=== PATIENT | female | born 1985 | race Caucasian/White ===

== ENCOUNTER 2017-11-18 18:12 | Emergency (ER) | payer BC, SELFPAY ==
[2017-11-18 18:13] VITALS: BP 166/103; PULSE 78; RESP 16; TEMP 36.2; O2SAT 98; BMI 39.9
[2017-11-18 18:35] VITALS: BP 145/89; PULSE 73; RESP 16; O2SAT 99
--- NOTE | 2017-11-18 18:36 | EKG12_ITS ---
Test Reason : CP Blood Pressure : / mmHG Vent. Rate : 067 BPM Atrial Rate : 067 BPM P-R Int : 148 ms QRS Dur : 096 ms QT Int : 378 ms P-R-T Axes : 002 016 005 degrees QTc Int : 399 ms Normal sinus rhythm with sinus arrhythmia Normal ECG Confirmed by HERMINIA ROGER, TALIB ([id number]), fashion editor MARA ZAMBRANO ([id number]) on 11/24/2017 3:34:58 PM Referred By: ORALIA Confirmed By:TALIB HOPE MD
[2017-11-18 18:38] VITALS: O2SAT 100
--- NOTE | 2017-11-18 18:41 | ED.DCSUM_ITS ---
- ER Visit Summary Date of Service: 11/18/17 Chief Complaint: Chest pain History of Present Illness: The patient is a 32 F past medical history of reflux and migraine headaches. No history of cardiac disease. No family history of cardiac disease. No family history of DVT or PEs. She has had no recent tr denise, surgery, immobilization or hospitalization. Denies any calf pain or swelling. No hemoptysis. Patient complaining of chest pain since around 1115 today at work. Currently been ongoing for last 7 hours. At times a stabbing in her times to pressure. Mild dyspnea. No fever. No cough. No prior history. She is on control pills. Physical Examination: Young female vital signs are stable and afebrile. Her BMI is 40. She is in no distress. Her pulse ox is 90% on room air no signs of hypoxia. H EENT exam unremarkable. Neck nontender no lymphadenopathy. Lungs clear to auscultation bilaterally. Heart regular rate and rhythm rate about 70 no murmur. Chest wall is diffusely tender consistent with muscular skeletal pain. There is no ecchymosis or bruising. No subcu air crepitus. Abdomen is obese but soft nontender nondistended normal bowel sounds no peritoneal signs. She is moving all 4 extremities. The neurovascular intact with normal range of motion. Calves are nontender without edema nor cords. Radial pulses are equal and symmetrical. Neurologically she is awake alert with no equal motor deficits. Test Results: EKG normal sinus rhythm rate of 67 no signs. Chest x-ray portable one view no acute abnormality. Normal cardiac silhouette next item. CBC normal. White count of 7. Hemoglobin 12. Electrolytes unremarkable. Potassium 3.3. Normal creatinine and gap. Troponin normal. D-dimer normal. Serum test negative. Emergency Department Course and Treatment: Patient with chest pain by exam appears to be reproducible and. She will undergo cardiac workup and d-dimer. My suspicion of this being cardiac or PE are low. She was treated with IV Toradol for pain. Repeat exam she is doing well at 1957 will be discharged home. Treatment Plan: Motrin for pain. Ice to chest wall. Disposition: Discharge Impression: Acute chest pain consistent with chest wall pain This note was generated with [employer] dictation software. It may contain incorrect words, spelling, and punctuation that were not noted in review of the chart prior to signing ED Disposition - Plan for ED Patient: Chief Complaint: Chest Pain Referrals: Raymond Arteaga III, MD [Primary Care Provider] -
--- NOTE | 2017-11-18 18:45 | RAD_ITS ---
STUDY: X-RAY CHEST REASON FOR EXAM: Female, 32 years old. Chest pain TECHNIQUE: Single frontal view COMPARISON: November 04, 2013 FINDINGS: The lungs are not fully expanded. There is mild right basilar interstitial prominence. Normal size heart. Normal mediastinum and debo. Normal visualized pulmonary arteries. Normal visualized aortic arch and descending thoracic aorta. Normal visualized thoracic spine. Normal visualized ribs, clavicles, and shoulders. There is no demonstrated abnormality of the visualized soft tissue structures of the upper abdomen. RAD/Chest 1 View (Portable) IMPRESSION: Mild right basilar interstitial prominence. Electronically Signed: King Pan DO at 19:08 EDT Tel [phone], Service support ,
[2017-11-18 19:03] LABS: Absolute Lymphocyte Count 2.47 X10^3/ul (0.83-4.51); Absolute Neutrophil Count 4.2 X10^3/uL (2.0-7.7); Basophil# 0.03 X10^3/uL; Basophil% 0.4 % (0-1); Eosinophil# 0.17 X10^3/uL; Eosinophils% 2.3 % (0-5); Hematocrit 37.5 % (37-47); Hemoglobin 12.4 g/dl (12.0-15.0); Lymphocyte # 2.47 X10^3/ul (4.0); Mean Corp Hgb Conc 33.1 g/gl (32-36); Mean Corpuscular Hgb 29.7 pg (27.0-32.0); Mean Corpuscular Volume 89.7 fL (81-99); Mean Platelet Vol. 9.7 fl (6.2-12.0); Monocyte# 0.38 X10^3/uL; Monocyte% 5.2 % (0-10); POSITIVE COUNT NO; POSITIVE DIFFERENTIAL NO; POSITIVE MORPHOLOGY NO; Platelet Count 266 K/mm3 (150-450); RBC Distribution Width CV 13.1 % (11.6-14.6); RBC Distribution Width SD 42.9 fl (35.1-43.9); Red Blood Count 4.18 M/mm3 (4.2-5.4); White Blood Count 7.3 K/mm3 (4.4-11.0)
[2017-11-18 19:16] LABS: Anion Gap 9 (5-15); BUN 11 mg/dL (7-18); BUN/Creat Ratio 12.7 RATIO (10-20); Chloride 106 mmol/L (98-107); Creatinine, Serum 0.87 mg/dL (0.55-1.02); EST Glomerular Filtration Rate 80 mL/min (>60); Est Glom Filt Rate - Afr Amer 97 mL/min (>60); Estimated Creatinine Clearance 82.76 ml/min; Glucose 117 mg/dL (74-106); Potassium 3.3 mmol/L (3.5-5.1); Sodium Level 140 mmol/L (136-145)
[2017-11-18 19:20] LABS: Pregnancy, Serum, hCG Quali. NEGATIVE Negative (0-9 Nonpreg)
[2017-11-18 19:24] LABS: D-Dimer Quantitative (DVT/PE) 0.44 FEU/ug/m (0.27-0.49)
[2017-11-18 19:29] VITALS: BP 159/113; PULSE 81; RESP 15; O2SAT 97
[2017-11-18] MEDS: Ketorolac 30 MG/ML Syringe IV (19:35)
[2017-11-18 19:57] VITALS: BP 159/87; PULSE 64; RESP 16; O2SAT 99
--- NOTE | 2017-11-18 19:58 | ED.DEP ---
ED Disposition - Plan for ED Patient: Disposition: Home or Assisted Living Chief Complaint: Chest Pain Instructions: ED Chest Pain Costochondritis Referrals: Raymond Arteaga III, MD [Primary Care Provider] - 1 Week if not improving Additional Instructions: Ice to chest wall. Motrin or Advil for pain. This is caused by chest wall pain. Your labs were unremarkable. There is no signs of this being your heart or a blood clot.
== END 2017-11-18 20:28 | disposition home or self-care (01) ==
PROVIDERS: Emergency Provider Emergency Medicine; Family Provider Family Medicine; PCP Family Medicine
DX: R07.89 Other chest pain (principal); R06.00 Dyspnea, unspecified; K21.9 Gastro-esophageal reflux disease without esophagitis; G43.909 Migraine, unspecified, not intractable, without status migrainosus; Z79.3 Long term (current) use of hormonal contraceptives; Z79.899 Other long term (current) drug therapy
CPT/HCPCS: 71045; 80048; 84484; 84703; 85025; 85379; 93005; 96374; 99284; A4216

== ENCOUNTER 2019-02-08 19:26 | Emergency (ER) | payer OTHER, SELFPAY ==
[2019-02-08 19:26] VITALS: BP 145/87; PULSE 94; RESP 18; TEMP 36.9; O2SAT 99; BMI 41.5
[2019-02-08] MEDS: Naproxen 500 MG Tablet PO (19:40)
--- NOTE | 2019-02-08 19:43 | ED.DCSUM_ITS ---
- ER Visit Summary Date of Service: 02/08/19 Chief Complaint: Back pain History of Present Illness: The patient is a 33 F who presents with back pain. It occurred 3 and half hours ago at work. 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 Is worse with movement. Nothing makes it better. She took nothing for this at home. No numbness or tingling or radiation down the legs. No bowel or bladder incontinence. No dysuria. No history of any back issues in the past. Physical Examination: Vital signs reviewed. HEENT exam unremarkable. Heart is regular rate and rhythm without murmurs. Lungs are clear to auscultation. Abdomen is soft and nontender. Back exam is tender in the right lumbar area. Extremities reveal no edema. Skin exam normal. Neurologic exam normal. Test Results: None performed Emergency Department Course and Treatment: This is likely a lumbar strain secondary to her lifting the patient. I do not feel any x-rays are needed as she has no midline tenderness. Patient will be treated with naproxen here. I will give her Flexeril for home. She will continue naproxen [id number]. Worker's Compensation forms will be completed. Treatment Plan: [] Disposition: Discharge Impression: Lumbar strain This note was generated with [employer] dictation software. It may contain incorrect words, spelling, and punctuation that were not noted in review of the chart prior to signing ED Disposition - Plan for ED Patient: Disposition: Home or Assisted Living Instructions: Back Sprain/Strain Prescriptions: cycloBENZAPRine HCl [Flexeril] 10 mg PO TID PRN #20 tab PRN Reason: Muscle Spasm Prescription Printed Referrals: Raymond Arteaga III, MD [Primary Care Provider] -
== END 2019-02-08 19:56 | disposition home or self-care (01) ==
PROVIDERS: Emergency Provider Emergency Medicine; Family Provider Family Medicine; PCP Family Medicine
DX: S39.012A Strain of muscle, fascia and tendon of lower back, initial encounter (principal); X50.0XXA Overexertion from strenuous movement or load, initial encounter; Y93.89 Activity, other specified; Y92.89 Other specified places as the place of occurrence of the external cause; Y99.8 Other external cause status
CPT/HCPCS: 99283

== ENCOUNTER → 2019-04-07 09:03 | Outpatient (REF) | payer OTHER, SELFPAY ==
[2019-04-05 10:07] VITALS: BMI 40.1
== END ==
LOC: HPRAD 09:03
PROVIDERS: PCP Family Medicine; Referring Provider Chiropractor; Visit Provider Chiropractor
DX: M99.01 Segmental and somatic dysfunction of cervical region (principal); R51 Headache
CPT/HCPCS: 72040

== ENCOUNTER 2019-04-15 16:53 | Emergency (ER) | payer OTHER, SELFPAY ==
[2019-04-05 10:07] VITALS: BMI 40.1
[2019-04-15 16:54] VITALS: BP 140/115; PULSE 95; RESP 18; TEMP 36.4; O2SAT 97; BMI 39.9
--- NOTE | 2019-04-15 17:19 | CT_ITS ---
STUDY: CT BRAIN WITHOUT CONTRAST REASON FOR EXAM: Female, 33 years old. Headache. Left-sided numbness and weakness. Photosensitivity. RADIATION DOSAGE (If Supplied By Facility): CTDIvol = ( 60.81 ) mGy, DLP = ( 953.05 ) mGycm TECHNIQUE: Transaxial CT imaging of the brain was performed without administration of intravenous contrast material. Individualized dose optimization techniques were used for this CT. COMPARISON: No relevant priors. FINDINGS: Normal soft tissue structures. Normal calvarium. Normal size ventricles and extra-axial spaces for the patient''s age. Normal white matter tracts of the cerebral hemispheres. Normal basal ganglia and thalami. Normal brainstem. Normal cerebellum. There is no intracranial hemorrhage. There are no findings of an acute ischemic infarction. Normal visualized paranasal sinuses. CT/Brain/Head without Contrast IMPRESSION: Normal unenhanced CT scan of the brain. If there is continued concern for acute stroke, MRI is recommended. Electronically Signed: Juice Seth DO at 18:30 EST Tel [phone], Service support ,
--- NOTE | 2019-04-15 17:20 | ED.DCSUM_ITS ---
History of Present Illness Chief Complaint: Headache Informant: Patient Onset: Weeks - 2 Context: Sudden - Relatively, like prior headaches Timing: Continuous - And unrelenting Quality: Similar Prior Headaches, Dull, Throbbing Location: Bifrontal and occipital Current Severity: Severe Maximum Severity: Severe Worsened by: Light, vomiting Relieved by: Nothing Associated Symptoms: Nausea, Vomiting, Numbness - Left arm and left leg, Blurred Vision, Photophobia. Negative for: Fever, Sore Throat, Visual Loss Injury: - - No injury/fall or recent illness Narrative: Patient states she has had increased frequency of migraines for the past 3 months. When she gets the migraines, she has been experiencing numbness/tingling throughout her left arm and left leg. That is currently there. She also has had some visual disturbances that look like swirls in her vision, but those resolved and today it is just blurry diffusely, no diplopia. No loss of consciousness. She states when the headache start there relatively sudden but she denies feeling any thunderclap's. She has a brother who had some type of brain cancer, no known history of cerebral aneurysms in the family. The left-sided neurologic symptoms come and go along with the headaches, but not consistently. She has never had the neurologic symptoms without the migraines/headaches. - Past Medical History (1) GERD (gastroesophageal reflux disease) Status: Chronic (2) Cervicogenic headache Status: Chronic (3) Segmental and somatic dysfunction of cervical region Status: Chronic (4) Segmental and somatic dysfunction of lumbar region Status: Chronic (5) Segmental and somatic dysfunction of pelvic region Status: Chronic (6) Segmental and somatic dysfunction of thoracic region Status: Chronic Past Medical History - Allergies and Home Meds Allergies/Adverse Reactions: Allergies doxycycline Allergy (Unknown, Verified 04/15/19 16:53) Unknown cefaclor [From Ceclor] Allergy (Verified 04/15/19 16:53) Hives dicyclomine Allergy (Verified 04/15/19 16:53) Hives Penicillins Allergy (Verified 04/15/19 16:53) Hives Primary Care Physician: Raymond Arteaga III, MD [Primary Care Provider] - Lives: Alone Smoking Status: Former smoker Review of Systems General: Reports: Malaise. Denies: Chills, Fever Eyes: Reports: Blurred Vision - bilaterally. Denies: Diplopia ENT: Denies: Bilateral ear pain, Rhinorrhea, Sore throat Cardiovascular: Denies: Chest pain, Palpitations Respiratory: Denies: Dyspnea, Cough, Dyspnea on exertion Gastrointestinal: Reports: Nausea, Vomiting. Denies: Abdominal pain, Diarrhea Genitourinary: Denies: Dysuria, Hematuria, Frequency Musculoskeletal: Reports: Neck pain, Back pain - Chronic, unchanged, mild. Denies: Swelling, Extremity Pain Skin: Denies: Rash, Wounds Neurological: Reports: Headache, Weakness, Numbness Physical Exam Vital Signs/Narrative: Vital Signs Temp Pulse Resp BP Pulse Ox 04/15/19 16:54 97.5 F L 95 18 140/115 H 97 Inital Vital Signs reviewed: Yes General: Well nourished, Well developed, - - nad. Conversive Head: NC, AT Eyes: Perrl, EOMI ENT: Moist mucous membranes, No rhinorrhea, TM's clear. Negative for: Sinus tenderness Neck: Supple, No Lymphadenopathy, No JVD, No Meningismus Cardiovascular: Regular rate, Regular rhythm, No murmurs Respiratory: No distress, CTA bilaterally, Chest nontender Abdomen: Soft, Nontender, Nondistended, Normal bowel sounds Back: Nontender, Normal Inspection Extremities: Nontender, No edema Skin: Normal color, No rash, No Trauma Neuro: Alert, Oriented x3, Cranial nerves II-XII grossly intact, Normal DTR, Normal Gait, Parasthesia - Left upper and left lower extremities. Sensation grossly intact., Weakness - 4+/5 strength left upper and left lower extremities, throughout compared with contralateral side Psychological: Normal affect, Normal Mood - NIH Stroke Scale 1a Level of Consciousness: 0 1b LOC Questions (Score 2 if aphasic/stupor): 0 1c LOC Commands (Only score 1st attempt): 0 2 Best Gaze (If aphasic, use reflexive mvmts.): 0 3 Visual: 0 4 Facial Palsy: 0 5 Motor Arm Right (UN = amputation/fusion): 0 5 Motor Arm Left: 1 6 Motor Leg Right: 0 6 Motor Leg Left: 1 7 Limb ataxia (Only + if out of proportion): 0 8 Sensory (Aphasia/stupor=0 or 1, coma=2): 1 9 Best Language: 0 10 Dysarthria (mute, coma=2, intubated=UN): 0 11 Extinction and Inattention (only scored if +): 0 Total Score: 3 Diagnostic/Tx/Re-eval Clinical Impression(s) from Imaging Studies Brain CT 04/15/19 17:19 IMPRESSION: Normal unenhanced CT scan of the brain. If there is continued concern for acute stroke, MRI is recommended. Electronically Signed: Juice SethDO at 18:30 EST Tel [phone], Service support , - Medical Decision Making Patient was given Toradol, Reglan, Benadryl as we obtained a CT given her unilateral neurologic symptoms. CT is negative. This is all consistent with migraine causing her neurologic symptoms, historically. She is improved, she would prefer to get another dose of something and then be discharged home. Dihydroergotamine ordered and discharge papers given. Given reasons to return. She is on no prophylactic medication for her migraines, she has been referred to neurology but has not seen them yet. ED Disposition - Plan for ED Patient: Disposition: Home or Assisted Living Diagnosis: Migraine headache Instructions: ED, Migraine (Classical) Referrals: Raymond Arteaga III, MD [Primary Care Provider] - 3-5 Days if not improving (And/o r with neurologist as scheduled)
[2019-04-15] MEDS: DiphenhydrAMINE 50 MG/ML Syringe 25 MG IV (18:03)
[2019-04-15] MEDS: 0.9% Normal Saline 1,000 ML 999 ML IV (18:03)
[2019-04-15] MEDS: proCHLORPERazine 10 MG/2 ML Vial IV (18:04)
[2019-04-15] MEDS: Ketorolac 30 MG/ML Syringe IV (18:04)
[2019-04-15 18:57] VITALS: BP 133/78; PULSE 70; RESP 16; O2SAT 98
[2019-04-15] MEDS: Dihydroergotamine 1 MG/ML Ampul IV (19:18)
[2019-04-15 20:11] VITALS: BP 131/97; PULSE 74; RESP 15; O2SAT 98
== END 2019-04-15 20:12 | disposition home or self-care (01) ==
PROVIDERS: Emergency Provider Emergency Medicine; PCP Family Medicine
DX: G43.909 Migraine, unspecified, not intractable, without status migrainosus (principal); K21.9 Gastro-esophageal reflux disease without esophagitis; Z87.891 Personal history of nicotine dependence; Z79.899 Other long term (current) drug therapy
CPT/HCPCS: 70450; 96361; 96374; 96375; 99284; J7030; A4216; J1110

== ENCOUNTER → 2019-12-03 | Outpatient (CLI) | payer OTHER, SELFPAY ==
[2019-12-01 18:11] VITALS: BMI 43.2
[2019-12-03 07:35] LABS: Absolute Lymphocyte Count 2.09 X10^3/uL (0.83-4.51); Absolute Neutrophil Count 4.7 X10^3/uL (2.0-7.7); Basophil# 0.05 X10^3/uL; Basophil% 0.7 % (0-1); Eosinophil# 0.17 X10^3/uL; Eosinophils% 2.3 % (0-5); Hematocrit 38.5 % (37-47); Hemoglobin 12.5 g/dL (12.0-15.0); Lymphocyte # 2.09 X10^3/ul (4.0); Lymphocyte % 27.9 % (19-41); Mean Corp Hgb Conc 32.5 g/dL (32-36); Mean Corpuscular Hgb 29.6 pg (27.0-32.0); Mean Corpuscular Volume 91.2 fL (81-99); Mean Platelet Vol. 9.6 fl (6.2-12.0); Monocyte# 0.49 X10^3/uL; Monocyte% 6.6 % (0-10); NRBC Flagged by Analyzer 0 % (0-5); Neutrophil # 4.67 X10^3/uL (2.7-7.7); Neutrophil % 62.4 % (47-70); Platelet Count 316 K/mm3 (150-450); RBC Distribution Width CV 13.5 % (11.6-14.6); RBC Distribution Width SD 45.4 fl (35.1-43.9); Red Blood Count 4.22 M/mm3 (4.2-5.4); White Blood Count 7.5 K/mm3 (4.4-11.0)
[2019-12-03 08:18] LABS: ALB/GLOB Ratio 0.8 RATIO (0.9-2.4); AST(SGOT) 16 U/L (15-37); Alanine Aminotransfer ALT/SGPT 25 U/L (13-56); Albumin, Serum 3.4 g/dL (3.2-5.0); Alkaline Phosphatase 51 U/L (45-117); Anion Gap 6 (5-15); BUN 12 mg/dL (7-18); BUN/Creat Ratio 13.3 RATIO (10-20); Calcium,Total 8.6 mg/dL (8.5-10.1); Chloride 107 mmol/L (98-107); EST Glomerular Filtration Rate 75 mL/min (>60); Est Glom Filt Rate - Afr Amer 91 mL/min (>60); Glucose 90 mg/dL (74-106); Protein, Total 7.4 g/dL (6.4-8.2); Sodium Level 139 mmol/L (136-145); T4 Free Direct 1.06 ng/dL (0.76-1.46); Thyroid Stim Hormone (TSH) 2.31 uIU/mL (0.358-3.74)
== END | disposition home or self-care (01) ==
PROVIDERS: PCP Internal Medicine; Referring Provider Internal Medicine; Visit Provider Internal Medicine
DX: K21.9 Gastro-esophageal reflux disease without esophagitis (principal); K58.9 Irritable bowel syndrome, unspecified
CPT/HCPCS: 36415; 80053; 84439; 84443; 85025

== ENCOUNTER → 2020-02-15 | Outpatient (CLI) | payer OTHER, SELFPAY ==
[2020-02-15 13:38] VITALS: BMI 43.7
[2020-02-21 12:54] LABS: HPV APTIMA, High Risk Negative (Negative)
== END | disposition home or self-care (01) ==
PROVIDERS: PCP Internal Medicine; Visit Provider Nurse Practitioner Women's Health
DX: Z12.4 Encounter for screening for malignant neoplasm of cervix (principal)
CPT/HCPCS: 87624; 88175; G0145

== ENCOUNTER → 2020-03-08 10:32 | Outpatient (CLI) | payer OTHER, SELFPAY ==
[2020-02-15 13:38] VITALS: BMI 43.7
--- NOTE | 2020-03-08 10:34 | BI_ITS ---
MAMMOGRAPHY - BILATERAL SCREENING REASON FOR EXAM: Female, 34 years old. Routine annual screening examination. PERTINENT HISTORY: Grandmother with breast cancer. TECHNIQUE: Digital bilateral breast silvia (3D mammographic acquisition) in the CC and MLO projections. 2-D mediolateral oblique (MLO) and craniocaudad (CC) views of both breasts were obtained. CAD: Full Field Digital Mammography with Computer Added Detection was performed. COMPARISON: Comparison made with prior outside examination dated 12/30/2017. FINDINGS: Breast Composition: The breasts are heterogeneously dense, which may obscure small masses. There are no dominant masses or suspicious calcifications. A tissue clip marker is seen in the upper slightly lateral aspect of the left breast. Stable benign appearing axillary lymph nodes. No other significant abnormalities are identified. There has been no significant change since the prior study. BI/SCRN MAMM (CAD)W/SILVIA BILAT IMPRESSION: Stable bilateral screening mammogram. Yearly follow-up mammogram recommended. (A) ASSESSMENT CATEGORY: BIRADS Category 2: Benign. A letter regarding these results will be sent to the patient by the facility within 30 days. Approximately 10% of breast cancers are not detected by mammography. A normal mammogram should not delay biopsy of a clinically suspicious abnormality. [id number] Electronically Signed: Paramjit Kumari MD at 12:10 EST , Service support ,
== END ==
PROVIDERS: PCP Internal Medicine; Referring Provider Nurse Practitioner Women's Health; Visit Provider Nurse Practitioner Women's Health
DX: Z12.31 Encounter for screening mammogram for malignant neoplasm of breast (principal)
CPT/HCPCS: 77063; 77067

== ENCOUNTER → 2020-04-10 06:32 | Outpatient (CLI) | payer OTHER, SELFPAY ==
[2020-03-29 09:18] VITALS: BMI 43.2
[2020-04-04 11:13] VITALS: BMI 42.1
--- NOTE | 2020-04-10 06:33 | MRI_ITS ---
STUDY: MRA OF THE HEAD WITHOUT CONTRAST REASON FOR EXAM: Female, 34 years old. family hx of cerebral aneurysm, migraine, ringing right ear TECHNIQUE: 3-D exrb-ec-pjcoki (TOF) imaging was performed with MIPs. The study was performed unenhanced. COMPARISON: None. FINDINGS: Normal bilateral petrous carotid arteries. Normal right cavernous carotid artery with a normal supraclinoid bifurcation. Normal left cavernous carotid artery with a normal supraclinoid bifurcation. Normal right A1 segments of the anterior cerebral artery. Normal left A1 segments of the anterior cerebral artery. Normal intact anterior communicating artery (ACOM). Normal bilateral A2 segments of the anterior cerebral arteries. Normal right M1 and M2 segments of the middle cerebral arteries, with a normal M1 bifurcation. Normal left M1 and M2 segments of the middle cerebral arteries, with a normal M1 bifurcation. Normal right posterior communicating artery (PCOM). Normal left posterior communicating artery (PCOM). Normal bilateral vertebral arteries. Normal basilar artery with a normal basilar bifurcation. The visualized bilateral superior cerebellar (SCA) arteries are normal. Normal bilateral P1, P2 and visualized P3 segments of the posterior cerebral arteries. There is no demonstrated aneurysm of the [place]. There is no major vessel occlusion or hemodynamically significant stenosis. There is no demonstrated abnormality of the visualized brain. MRI/MRA Head ONLY without Contrast IMPRESSION: Normal MRA of the head Electronically Signed: Terell Llanos MD at 8:30 EST Tel , Service support ,
--- NOTE | 2020-04-10 06:33 | MRI_ITS ---
STUDY: MRI BRAIN WITH AND WITHOUT CONTRAST (ATTENTION INTERNAL AUDITORY CANALS - I.A.C.''s) REASON FOR EXAM: Female, 34 years old. migraine, family hx cerebral aneurysm, ringing in right ear TECHNIQUE: Standardized multiplanar fat and water weighted pulse sequences were obtained. 23ml IV Dotarem was administered for the contrast portion of the examination. COMPARISON: CT 04/15/2019 FINDINGS: Normal bilateral temporal bones. Normal bilateral internal auditory canals. There is no demonstrated intracanalicular or cisternal vestibular schwannoma (acoustic neuroma). There is no enhancement of the bilateral VIIth or VIIIth cranial nerves. Normal bilateral cochlea, vestibules and semicircular canals. Normal size of the ventricles and extra-axial spaces for the patient''s age. Normal white matter tracts of the supratentorial brain. There is no evidence for recent intracranial ischemia or other cause of cytotoxic edema on diffusion weighted imaging (DWI). Normal bilateral basal ganglia. Normal thalami. Normal flow voids within the major intracranial circulation suggesting patency by spin echo criteria. Normal venous enhancement. There is no enhancing intra-axial or extra-axial abnormality. There is no extra-axial fluid accumulation. Normal sella turcica, pituitary gland, infundibular stalk, optic chiasm and hypothalamus. Normal tectal plate and pineal gland. Normal midbrain, yeni and medulla. Normal cerebellum. Normal basal cisterns. No demonstrated orbital abnormality, within the constraints of a routine brain study. Normal visualized paranasal sinuses. Normal calvarium and skull base. Normal visualized soft tissue structures. Normal visualized upper cervical spine. MRI/Brain W/WO Contrast IMPRESSION: Normal unenhanced and enhanced MRI of the bilateral internal auditory canals (I.A.C''s). Electronically Signed: Terell Llanos MD at 8:35 EST Tel , Service support ,
== END ==
PROVIDERS: PCP Internal Medicine; Referring Provider Nurse Practitioner Family; Visit Provider Nurse Practitioner Family
DX: G43.109 Migraine with aura, not intractable, without status migrainosus (principal); Z82.49 Family history of ischemic heart disease and other diseases of the circulatory system
CPT/HCPCS: 70544; 70553; A9575

== ENCOUNTER → 2020-05-08 09:37 | Outpatient (CLI) | payer OTHER, SELFPAY ==
[2020-05-08 09:27] VITALS: BMI 42.1
[2020-05-08 12:23] LABS: Vitamin D,25 Hydroxy 16.6 ng/mL
== END ==
PROVIDERS: PCP Internal Medicine; Referring Provider Podiatrist; Visit Provider Podiatrist
DX: E55.9 Vitamin D deficiency, unspecified (principal); S92.403A Displaced unspecified fracture of unspecified great toe, initial encounter for closed fracture
CPT/HCPCS: 36415; 82306

== ENCOUNTER → 2020-05-18 06:36 | Outpatient (CLI) | payer OTHER, SELFPAY ==
[2020-05-08 09:27] VITALS: BMI 42.1
--- NOTE | 2020-05-18 06:38 | MRI_ITS ---
HISTORY: Chronic neck pain, numbness and tingling INTO R HAND/FINGERS TECHNIQUE: Routine MRI of the cervical spine was performed without IV contrast. COMPARISON: Cervical spine radiographs 04/07/2019 FINDINGS: Number of images including paperwork: [phone] ALIGNMENT: Straightening of the normal cervical lordosis. No subluxation. VERTEBRAL BODIES: Unremarkable. INTERVERTEBRAL DISCS: Unremarkable. SPINAL CANAL AND FORAMINA: No critical canal stenosis. SPINAL CORD: Unremarkable. MRI/Spine Cervical (Routine) IMPRESSION: No acute findings. at 1015 Reported and signed by: Zeny Gifford MD Electronically Signed: Zeny Gifford MD at 10:15 EDT Tel , Service support ,
== END ==
PROVIDERS: PCP Internal Medicine; Referring Provider Nurse Practitioner Family; Visit Provider Nurse Practitioner Family
DX: M54.2 Cervicalgia (principal)
CPT/HCPCS: 72141

== ENCOUNTER → 2020-07-05 15:40 | Outpatient (CLI) | payer OTHER, SELFPAY ==
[2020-07-05 15:25] VITALS: BMI 44.9
[2020-07-05 18:29] LABS: T4 Free Direct 0.84 ng/dL (0.76-1.46); Thyroid Stim Hormone (TSH) 1.93 uIU/mL (0.358-3.74)
== END ==
PROVIDERS: PCP Internal Medicine; Referring Provider Internal Medicine; Visit Provider Internal Medicine
DX: Z13.29 Encounter for screening for other suspected endocrine disorder (principal)
CPT/HCPCS: 36415; 84439; 84443

== ENCOUNTER 2020-12-06 09:58 | Day surgery (SDC) | payer OTHER, SELFPAY ==
[2020-12-06] VITALS (7 sets, daily range): BP systolic 117–126; BP diastolic 71–79; PULSE 51–68; RESP 16; TEMP 36–37.4; O2SAT 97–100; BMI 43.2
--- NOTE | 2020-12-06 10:12 | PCM.HP.BLA ---
History and Physical Date of Admission: 12/06/20 Date of Service: 11/30/20 Intake Intake Visit Reasons: POSSIBLE FISSURE, CSCOPE/EGD Chief Complaint: left ear pain Allergies Penicillins Allergy (Severe, Verified 11/30/20 09:32) hives cefaclor [From [facility], 1928–1983] Allergy (Intermediate, Verified 11/30/20 09:32) Rash doxycycline Allergy (Mild, Verified 11/30/20 09:32) unknown Medications cetirizine 10 mg capsule 10 mg PO DAILY 02/15/20 [History Confirmed 11/30/20] hydroxyzine HCl 25 mg tablet 25 mg PO BID PRN tab 02/15/20 [History Confirmed 11/30/20] Diltiazem 2% / Lidocaine 5% ointment (compound) #30 g 03/15/20 [Rx Confirmed 11/30/20] norethindrone (contraceptive) 0.35 mg tablet 0.35 mg PO QDAY #84 tab 03/30/20 [Rx Confirmed 11/30/20] cholecalciferol (vitamin D3) 125 mcg (5,000 unit) capsule 125 mcg PO DAILY 07/05/20 [History Confirmed 11/30/20] propranolol 40 mg tablet 40 mg PO BID #60 tab 07/31/20 [Rx Confirmed 11/30/20] eletriptan 20 mg tablet See Rx Instructions .ROUTE .COMPLEX #9 tab 08/01/20 [Rx Confirmed 11/30/20] tizanidine 4 mg tablet 4 - 8 mg PO TID PRN #180 tab 09/18/20 [Rx Confirmed 11/30/20] ubrogepant 100 mg tablet 100 mg PO ONCE PRN #10 tab 10/06/20 [Rx Confirmed 11/30/20] erenumab-aooe 140 mg/mL subcutaneous auto-injector 140 mg SUBCUT QMONTH #1 ml 10/09/20 [Rx Confirmed 11/30/20] dicyclomine 20 mg tablet 20 mg PO TID PRN #60 tab 11/28/20 [Rx Confirmed 11/30/20] naproxen 500 mg tablet 500 mg PO BID PRN #60 tab 11/28/20 [Rx Confirmed 11/30/20] omeprazole 20 mg capsule,delayed release 20 mg PO DAILY #90 cap 11/28/20 [Rx Confirmed 11/30/20] ondansetron HCl 4 mg tablet 4 mg PO Q8H PRN #90 tab 11/28/20 [Rx Confirmed 11/30/20] sucralfate 1 gram tablet 1 g PO QACHS #56 tab 11/30/20 [Rx Confirmed 11/30/20] PFSH Medical History Acid reflux Carpal tunnel syndrome Chronic diarrhea Chronic headaches Chronic neck and back pain Environmental allergies GI bleed H/O emotional problems H/O hemorrhoids History of eating disorder History of gallstones History of UTI Hypertension IBS (irritable bowel syndrome) Neuropathy Nonscarring hair loss Screening for thyroid disorder Severe headache Tinnitus Tinnitus, right vision problem with headache Surgical History H/O dilation and curettage History of cholecystectomy History of tonsillectomy history of upper and lower scope Family History Mother Hypertension Arthritis Anemia Father Diabetes Anesthesia complication Brother Brain cancer Anxiety Sister Asthma Grandmother CVA (cerebral vascular accident) Daughter Anxiety Grandfather COPD (chronic obstructive pulmonary disease) CVA (cerebral vascular accident) Other Seizures Social History household members: spouse and children number of children: 3 current occupational status: employed current occupation: [employer] history of recent travel: No sexually active: Yes Smoking Status: Former smoker alcohol intake: never substance use type: does not use what type of physical activity do you participate in: running frequency: 3-4 times per week seatbelt use: always do you feel safe at home: Yes additional social history: - Donald Female Reproductive History Menstrual Ab spontaneous: 1 HPI HPI HPI: DOMINIK JOSEPH, is a 35 F who presents to the office today for EGD and colonoscopy due to red blood per rectum as well as epigastric pain. Patient states she has had blood clots per rectum ongoing has diagnosis of anal fissure. Patient denies any further pain with bowel movements states she normally has loose stools multiple times a day. Patient does have Bentyl for IBS which she has been taking more regularly currently states that may help a little bit. Patient states omeprazole 20 mg p.o. daily for about 2 years old her burning up her esophagus with reflux. However this week patient has had increased epigastric crampiness patient denies any change with eating states it is fairly constant and she does have nausea. Patient has been taking Zofran to help with the nausea. Patient had previous colonoscopy in 2018 along with an EGD and only had some mild gastropathy seen with negative biopsies of the colon. Patient denies any family history of colon cancer. ROS General General: No weight change, appetite, fatigue, colon cancer, breast cancer or weakness HEENT HEENT: No difficulty swallowing, eye injury, eye surgery, swollen glands or hoarseness Endo Endocrine: No thyroid disease, diabetes mellitus, thyroid cancer, Hair loss, heat intolerance or cold intolerance Skin Skin: No rash or changing moles Breast Breast: No left breast lump, right breast lump, nipple discharge, breast pain, abnormal mammogram, abnormal US or breast enlargement Musc Musculoskeletal: No back problems, arthritis, rheumatoid arthritis, gout or joint pain Cardio Cardiovascular: No murmur, pacemaker, heart disease, atrial fibrillation, high blood pressure, heart attack, heart stent, palpitations, shortness of breat with exertion or chest pain Psych Psychiatric: No depression, anxiety or hearing voices Resp Respiratory: No shortness of breath, No sleep apnea, No cough, No COPD, No asthma, No emphysema and No wheezing Gastro Gastrointestinal: Yes abdominal pain, Yes nausea or vomiting, Yes diarrhea, No constipation, Yes blood in stool, Yes acid reflux, Yes hemorrhoids, No ulcers, No gallbladder problem and No black,tarry stools [place] Hematologic: No blood thinners, No blood disorders, No bleeding, No anemia and No blood clots Neuro Neurologic: No system reviewed and no additional complaints, except as documented, No as per HPI, No abnormal gait, No abnormal hearing, No abnormal movements, No abnormal speech, No behavioral changes, No burning sensations, No confusion, No convulsions, No disequilibrium, No dizziness, No localized weakness, No frequent falls, No headache(s), No lack of coordination, No loss of vision, No memory loss, Yes numbness, No other visual disturbances, No restless legs, No sensory deficit, No syncope, Yes tingling, No tremor(s), No weakness and No other Exam Const General: cooperative, healthy appearing, comfortable and no acute distress Neck Neck: normal visual inspection Resp Effort & Inspection: normal respiratory effort Cardio Rate: regular rate GI Inspection: non-distended Palpation: soft, no guarding and tender in the epigastrum; with no rebound tenderness Skin General: no rashes or lesions noted Neuro General: patient oriented x3 Psych Affect: normal affect Assessment and Plan Assessment and Plan (1) BRBPR (bright red blood per rectum): Status: Acute (2) Epigastric pain: Status: Acute Plan - Dr. Chelo Covington MD: Discussed with patient we will start her on Carafate for 2 weeks. We will increase patient's omeprazole to 40 mg p.o. daily as she has been on 20 mg p.o. daily for about 2 years per patient. I have discussed the above with the patient. I have offered the patient EGD and colonoscopy for evaluation. I have explained the risks/benefits of the procedure and described the procedure. I have discussed the risks with the patient, including but not limited to: infection, bleeding, perforation of the GI tract requiring emergency surgery, inability to complete the procedure, injury to any internal organs, complications of anesthesia, etc. - the patient understands and agrees to proceed. I have answered all the patient's questions to the patient's satisfaction and the patient has no further questions. The patient has been given instructions for the colon cleansing preparation. 1 day of clears, MiraLAX Dulcolax split prep. Chelo Covington M.D. Pager: [phone] [facility] [address] [place] [address], [address] [place] [address] Office: [phone] Plan Details Other Medications: New: sucralfate 1 g PO QACHS 56 tabs 0RF Other Orders: Orders: Colonoscopy Today EGD Today Goals & Barriers: Goals Decrease pain Decrease spasm Improve workability Coding Level of Care Code Off vis,est,level 3 Diagnoses BRBPR (bright red blood per rectum) K62.5 Epigastric pain R10.13 11/30/20 0949<Electronically signed by Chelo Covington MD>Date Chelo Covington MD
[2020-12-06 10:26] LABS: Internal QC Validated? YES +Cl - CLEAR BKGD; Pregnancy, Urine Negative Negative
[2020-12-06] MEDS: Lactated Ringers 1,000 ML 100 ML IV (10:30)
--- NOTE | 2020-12-06 11:00 | EGD_PTH ---
PATIENT: DOMINIK JOSEPH LOC: EN U#:[id number] AGE/SX: 35/F ROOM: RE12/06/[address]: Dr. Chelo Covington MD : 1985 BED: DIS: 12/06/2020 SPEC #: [id number] RECD: 12/06/20 12:35 STATUS: EHSAN REQ #: [id number] SELWYN: 12/06/20 11:[address]: Chelo Covington DEPT: SURGICAL PATHOLOGY RECD BY: Eladia Gray ENTERED: 12/06/20 13:08 SP TYPE: EGD BIOPSY OT DR: Dr. Grisel Solares MD Tissues: A - Gastric mucous membrane B - Gastric mucous membrane Procedures: Surgery Specimen Level IV HEADER OPERATION: [place] [place] DIAGNOSIS: Bright red blood per rectum, epigastric pain TISSUE SUBMITTED: A ? Antrum biopsy for histo and H. pylori, B ? Gastric polyp biopsy MICROSCOPIC DIAGNOSIS A. Antrum biopsy: Mild gastritis. See microscopic description and comment. B. Gastric polyp, biopsy: Consistent with fragments of fundic gland polyp. BIJAN:willi 12/07/2020 COMMENT A. The results of immunohistochemistry for Helicobacter pylori will be reported separately ([id number]). MICROSCOPIC DESCRIPTION Slides are reviewed. A. The specimen shows fragments of gastric mucosa with chronic inflammatory cell infiltrates in the lamina propria consisting of lymphocytes and plasma cells, consistent with mild chronic gastritis. GROSS DESCRIPTION A - Received in fixative is one container labeled with the patient's name and designated antrum biopsy. The specimen consists of one irregular fragment of light last soft tissue that measures 0.5 x 0.2 x 0.1 cm. The specimen is totally submitted in one cassette. B - Received in fixative is one container labeled with the patient's name and designated gastric polyp biopsy. The specimen consists of multiple irregular fragments of light last soft tissue that in aggregate measure 0.5 x 0.2 x 0.1 cm. The specimen is totally submitted in one cassette. / AM:willi 12/06/20 TC:5 CPT: 62894 x2
--- NOTE | 2020-12-06 11:00 | IMM_PTH ---
PATIENT: DOMINIK JOSEPH LOC: EN U#:[id number] AGE/SX: 35/F ROOM: RE12/06/[address]: Dr. Chelo Covington MD : 1985 BED: DIS: 12/06/2020 SPEC #: [id number] RECD: 12/06/20 13:33 STATUS: EHSAN REQ #: [id number] SELWYN: 12/06/20 11:[address]: Chleo Covington DEPT: IMMUNOHISTOCHEMISTRY RECD BY: Rama Wilkins ENTERED: 12/06/20 13:34 SP TYPE: IMMUNO OTHR DR: Dr. Grisel Solares MD Tissues: A - Stomach, NOS Procedures: H Pylori (initial) PHYSICIAN & INSTITUTION [place] [id number] SPECIMEN INFORMATION: Tissue Source: A ? Antrum biopsy Clinical Info: Bright red blood per rectum, epigastric pain Specimen Number: [id number] CPT code: 21750 METHODOLOGY: Deparaffinized sections of prefer/formalin-fixed tissue or PAP/DQ stained slides are incubated with monoclonal/polyclonal antibodies/oligonucleotide probes. Localization is made via biotin free immunoperoxidase method. Appropriate controls are performed and reacted as expected. Results on target cell population are indicated in the following table: RESULTS: ANTIBODY / CLONE RESULT Block A H Pylori (polyclonal) negative These tests were developed and their performance characteristics determined by [facility]. They may not have been cleared or approved by the U.S. Food and Drug Administration. The FDA has determined that such clearance or approval is not necessary. INTERPRETATION: A. Antrum biopsy: Negative for Helicobacter pylori organisms. SJ:willi 12/08/2020
--- NOTE | 2020-12-06 12:23 | OP.EGD_ITS ---
Patient Name: Ana Maria Kenny Procedure Date: 12/06/2020 11:43 AM Date of : 1985 Age: 35 Procedure: Upper GI endoscopy Indications: Epigastric abdominal pain Providers: Chelo Covington MD Medicines: Monitored Anesthesia Care Patient Profile: This is a 35 year old female. Complications: No immediate complications. Procedure: Pre-Anesthesia Assessment: - Prior to the procedure, a History and Physical was performed, and patient medications and allergies were reviewed. The patient's tolerance of previous anesthesia was also reviewed. The risks and benefits of the procedure and the sedation options and risks were discussed with the patient. All questions were answered, and informed consent was obtained. Prior Anticoagulants: The patient has taken no previous anticoagulant or antiplatelet agents. ASA Grade Assessment: Per anesthesia. After reviewing the risks and benefits, the patient was deemed in satisfactory condition to undergo the procedure. After obtaining informed consent, the endoscope was passed under direct vision. Throughout the procedure, the patient's blood pressure, pulse, and oxygen saturations were monitored continuously. The Endoscope was introduced through the mouth, and advanced to the second part of duodenum. The upper GI endoscopy was accomplished without difficulty. The patient tolerated the procedure well. Scope In: 11:49:32 AM Scope Out: 11:54:57 AM Total Procedure Duration Time 0 hours 5 minutes 25 seconds Findings: The Z-line was variable and was found 37 cm from the incisors. Mildly erythematous mucosa without bleeding was found in the gastric antrum. Biopsies were taken with a cold forceps for histology. Biopsies were taken with a cold forceps for Helicobacter pylori cultures. The examined duodenum was normal. The cardia and gastric fundus were normal on retroflexion. Bilious fluid was found in the gastric antrum. Impression: - Z-line variable, 37 cm from the incisors. - Erythematous mucosa in the antrum. Biopsied. - Normal examined duodenum. - Bilious gastric fluid. Recommendation: - Await pathology results. - Discharge patient to home. - Resume previous diet. - Continue present medications. - Use Protonix (pantoprazole) 40 mg PO daily. Procedure Code(s): --- Professional --- 98501, Esophagogastroduodenoscopy, flexible, transoral; with biopsy, single or multiple Diagnosis Code(s): --- Professional --- K22.8, Other specified diseases of esophagus K31.89, Other diseases of stomach and duodenum R10.13, Epigastric pain CPT copyright 2017 [employer]. All rights reserved. The codes documented in this report are preliminary and upon funeral arranger review may be revised to meet current compliance requirements. MD Chelo Duran MD 12/06/2020 12:23:42 PM This report has been signed electronically. Number of Addenda: 0 Note Initiated On: 12/06/2020 11:43 AM
--- NOTE | 2020-12-06 12:24 | OP.CCLET_ITS ---
12/06/2020 Grisel Solares MD [address] [place] [address] [place] [address] Re : Upper GI endoscopy procedure for Ana Maria Kenny Dear Dr. Solares This procedure was performed on Sunday, December 06, 2020. My impressions and recommendations are as follows: Impressions : - Z-line variable, 37 cm from the incisors. - Erythematous mucosa in the antrum. Biopsied. - Normal examined duodenum. - Bilious gastric fluid. Recommendations : - Await pathology results. - Discharge patient to home. - Resume previous diet. - Continue present medications. - Use Protonix (pantoprazole) 40 mg PO daily. My findings are described in the full procedure note, which is enclosed. If I can be of further assistance, please feel free to contact me at Doctor phone number(s): , Work: . Sincerely, MD Chelo Duran MD 12/06/2020 12:23:42 PM This report has been signed electronically.
--- NOTE | 2020-12-06 12:29 | OP.COLON_ITS ---
Patient Name: Ana Maria Kenny Procedure Date: 12/06/2020 11:56 AM Date of : 1985 Age: 35 Procedure: Colonoscopy Indications: Rectal bleeding Providers: Chelo Covington MD Medicines: Monitored Anesthesia Care Patient Profile: This is a 35 year old female. Last Colonoscopy: 2018. Complications: No immediate complications. Procedure: Pre-Anesthesia Assessment: - Prior to the procedure, a History and Physical was performed, and patient medications and allergies were reviewed. The patient's tolerance of previous anesthesia was also reviewed. The risks and benefits of the procedure and the sedation options and risks were discussed with the patient. All questions were answered, and informed consent was obtained. Prior Anticoagulants: The patient has taken no previous anticoagulant or antiplatelet agents. ASA Grade Assessment: Per anesthesia. After reviewing the risks and benefits, the patient was deemed in satisfactory condition to undergo the procedure. After I obtained informed consent, the scope was passed under direct vision. Throughout the procedure, the patient's blood pressure, pulse, and oxygen saturations were monitored continuously. The pediatric colonoscope was introduced through the anus and advanced to the cecum, identified by the appendiceal orifice, ileocecal valve and palpation. The colonoscopy was performed without difficulty. The patient tolerated the procedure well. The quality of the bowel preparation was good. Scope In: 11:57:56 AM Scope Withdrawal Time 0 hours 8 minutes 9 seconds Scope Out: 12:16:15 PM Total Procedure Duration Time 0 hours 18 minutes 19 seconds Findings: An anal fissure was found on perianal exam. The entire examined colon appeared normal on direct and retroflexion views. Non-bleeding internal hemorrhoids were found. The hemorrhoids were Grade I (internal hemorrhoids that do not prolapse). Impression: - Anal fissure found on perianal exam. - The entire examined colon is normal on direct and retroflexion views. - Non-bleeding internal hemorrhoids. - No specimens collected. Recommendation: - Discharge patient to home. - Resume previous diet. - Continue present medications. - Repeat colonoscopy [day] at age 44 Procedure Code(s): --- Professional --- 23475, Colonoscopy, flexible; diagnostic, including collection of specimen(s) by brushing or washing, when performed (separate procedure) Diagnosis Code(s): --- Professional --- K60.2, Anal fissure, unspecified K62.5, Hemorrhage of anus and rectum CPT copyright 2017 [employer]. All rights reserved. The codes documented in this report are preliminary and upon excellence specialist review may be revised to meet current compliance requirements. MD Chelo Duran MD 12/06/2020 12:29:12 PM This report has been signed electronically. Number of Addenda: 0 Note Initiated On: 12/06/2020 11:56 AM
--- NOTE | 2020-12-06 12:29 | OP.CCLET_ITS ---
12/06/2020 Grisel Solares MD [address] [place] [address] [place] [address] Re : Colonoscopy procedure for Ana Maria Kenny Dear Dr. Solares This procedure was performed on Sunday, December 06, 2020. My impressions and recommendations are as follows: Impressions : - Anal fissure found on perianal exam. - The entire examined colon is normal on direct and retroflexion views. - Non-bleeding internal hemorrhoids. - No specimens collected. Recommendations : - Discharge patient to home. - Resume previous diet. - Continue present medications. - Repeat colonoscopy [day] at age 44 My findings are described in the full procedure note, which is enclosed. If I can be of further assistance, please feel free to contact me at Doctor phone number(s): , Work: . Sincerely, MD Chelo Duran MD 12/06/2020 12:29:12 PM This report has been signed electronically.
== END 2020-12-06 13:48 | disposition home or self-care (01) ==
LOC: EN 09:58 → AC 10:09
PROVIDERS: Anesthesiology; PCP Internal Medicine; Referring Provider Internal Medicine; Visit Provider Surgery
PROC: 0DJD8ZZ Inspection of Lower Intestinal Tract, Via Natural or Artificial Opening Endoscopic (ICD-10-PCS; CPT 45378; principal; 2020-12-06 10:55)
DX: K60.2 Anal fissure, unspecified (principal); K29.70 Gastritis, unspecified, without bleeding; K31.7 Polyp of stomach and duodenum; K64.0 First degree hemorrhoids; K58.9 Irritable bowel syndrome, unspecified; K21.9 Gastro-esophageal reflux disease without esophagitis; I10 Essential (primary) hypertension; Z87.891 Personal history of nicotine dependence; Z79.899 Other long term (current) drug therapy
CPT/HCPCS: 43239; 45378; 81025; 88305; 88342; J7120; J2405

== ENCOUNTER → 2020-12-11 11:44 | Outpatient (CLI) | payer OTHER, SELFPAY ==
[2020-12-11 15:56] LABS: ALB/GLOB Ratio 1.1 RATIO (0.9-2.4); AST(SGOT) 41 U/L (15-37); Alanine Aminotransfer ALT/SGPT 111 U/L (13-56); Alkaline Phosphatase 64 U/L (45-117); Anion Gap 7 (5-15); BUN 11 mg/dL (7-18); BUN/Creat Ratio 10.7 RATIO (10-20); Calcium,Total 9.1 mg/dL (8.5-10.1); Chloride 107 mmol/L (98-107); Creatinine, Serum 1.03 mg/dL (0.55-1.02); EST Glomerular Filtration Rate 64 mL/min (>60); Est Glom Filt Rate - Afr Amer 78 mL/min (>60); Globulin 3.5 g/dL (2.2-4.2); Glucose 90 mg/dL (74-106); Magnesium 1.8 mg/dL (1.6-2.6); Potassium 4.3 mmol/L (3.5-5.1); Protein, Total 7.5 g/dL (6.4-8.2); Sodium Level 139 mmol/L (136-145); T4 Free Direct 0.95 ng/dL (0.76-1.46); Thyroid Stim Hormone (TSH) 2.14 uIU/mL (0.358-3.74)
== END ==
PROVIDERS: PCP Internal Medicine; Visit Provider Internal Medicine
DX: R00.1 Bradycardia, unspecified (principal)
CPT/HCPCS: 36415; 80053; 83735; 84439; 84443

== ENCOUNTER → 2020-12-11 12:44 | Outpatient (CLI) | payer OTHER, SELFPAY ==
--- NOTE | 2020-12-11 12:45 | EKG12_ITS ---
Test Reason : RHYTHM Blood Pressure : / mmHG Vent. Rate : 043 BPM Atrial Rate : 043 BPM P-R Int : 148 ms QRS Dur : 094 ms QT Int : 428 ms P-R-T Axes : 038 016 008 degrees QTc Int : 361 ms Marked sinus bradycardia Nonspecific T wave abnormality Abnormal ECG Confirmed by HERMINIA ROGER, TALIB ([id number]), editor index REINA JACK ([id number]) on 12/12/2020 11:05:20 AM Referred By: Grisel Solares Confirmed By:TALIB HOPE MD
== END ==
PROVIDERS: PCP Internal Medicine; Referring Provider Internal Medicine; Visit Provider Internal Medicine
DX: R00.1 Bradycardia, unspecified (principal)
CPT/HCPCS: 93005

== ENCOUNTER → 2020-12-25 06:39 | Outpatient (CLI) | payer OTHER, SELFPAY ==
--- NOTE | 2020-12-25 12:59 | STRESSREP ---
Stress Test Report Date: 12-25-2020 Procedure: Exercise tolerance test/imaging study Indications: Dizziness/lightheadedness; chest discomfort; bradycardia Consent: Per the patient Procedure: The patient exercised on a Branden protocol for 9 minutes and 30 seconds completing Stage III and 30 seconds of Stage IV achieving a peak heart rate of 151 bpm (82% predicted maximal heart rate) with a peak blood pressure 158/84 mmHg and a peak MET capacity of 10 METs. The baseline ECG demonstrated sinus bradycardia. The peak exercise ECG demonstrated somatic/motion artifact with no obvious ECG changes. There were no cardiac dysrhythmias pretest, during exercise, or recovery. The functional capacity was considered good. There was notation of chest discomfort and shortness of breath near peak exercise. The examination was discontinued secondary to dyspnea. Impression: 1. Technically adequate (percent predicted maximal heart rate greater than 85%) exercise tolerance test 2. Peak exercise ECG with somatic/motion artifact with no obvious ECG changes at the heart rate achieved 3. There were no cardiac dysrhythmias pretest, during exercise, or recovery 4. Nuclear images pending Myocardial perfusion imaging study: Technique: The patient was injected with 14.8 mCi of technetium 99m Cardiolite and subsequently rest SPECT Cardiolite nuclear imaging was obtained in the horizontal long, vertical long, and short axis views. The patient exercised on a Branden protocol for 9 minutes and 30 seconds completing Stage III and 30 seconds of Stage IV achieving a peak heart rate of 151 bpm (82% predicted maximal heart rate) with a peak blood pressure 158/84 mmHg and a peak MET capacity of 10 METs. The patient was injected with 44.7 mCi of technetium 99m Cardiolite and subsequently stress SPECT Cardiolite nuclear imaging was obtained in the horizontal long, vertical long, and short axis views. A gated Cardiolite study at peak stress was obtained. Interpretation: Rest and stress SPECT Cardiolite nuclear imaging status post realignment, normalization, and attenuation correction, demonstrates the appearance of relative uniform tracer uptake and myocardial perfusion appearing within normal limits. There is end systolic thickening and brightening. The gated Cardiolite study demonstrates myocardial thickening and inward wall motion. The reported LVEF is 73%. Impression: 1. Rest and stress SPECT Cardiolite nuclear imaging demonstrate relative uniform tracer uptake and myocardial perfusion appearing within normal limits at the heart rate achieved. 2. The gated Cardiolite study reports an LVEF of 73%. This note was generated with Dragon dictation software. It may contain incorrect words, spelling, and punctuation that were not noted in checking the note before signing.
== END ==
PROVIDERS: PCP Internal Medicine; Referring Provider Internal Medicine; Visit Provider Internal Medicine
DX: R94.31 Abnormal electrocardiogram [ECG] [EKG] (principal); R00.1 Bradycardia, unspecified
CPT/HCPCS: 78452; 93017; A9500; A4216

== ENCOUNTER → 2021-01-17 07:53 | Outpatient (CLI) | payer OTHER, SELFPAY ==
--- NOTE | 2021-01-17 07:56 | ECHOCS_ITS ---
Reason For Study: Arrhythmia Procedure This was a 2D Doppler, Color Flow transthoracic echocardiogram. The study was technically difficult. Contrast injection was performed. Exam performed in department. Left Ventricle Normal LV size. Left ventricular systolic function is normal. The estimated ejection fraction is 65 %. No evidence for diastolic dysfunction. No regional wall motion abnormalities noted. Right Ventricle Normal RV size. Normal systolic function. Atria Normal left atrium. Normal right atrium. No doppler evidence for ASD. Mitral Valve There is no mitral annular calcification. Normal mitral valve. Trivial mitral valve insufficiency. Tricuspid Valve Normal tricuspid valve. Trivial tricuspid valve insufficiency. Unable to estimate RV systolic pressure/pulmonary artery pressure due to technically difficult study. Aortic Valve The aortic valve is not well visualized. Pulmonic Valve The pulmonic valve is not well visualized. Great Vessels The aortic root is not well visualized. Pericardium/Pleural No pericardial effusion. Medication 22 gauge I.V. with prn adaptor inserted into right arm. Diluted definity 3ml given slow IV push to enhance endocardial definition. MMode/2D Measurements & Calculations LVIDd: 4.4 cm IVSd: 1.1 cm LAV(MOD-bp): 37.3 ml LVIDs: 2.9 cm LVPWd: 0.92 cm FS: 34.0 % LAV(MOD-bp) Indexed: 16.8 ml/m2 LAV(MOD-sp2): 36.2 ml LAV(MOD-sp4): 31.8 ml LA A4 area: 15.2 cm2 RA A4 area: 10.9 cm2 Time Measurements MV dec time: 0.23 sec Doppler Measurements & Calculations MV E max kevin: 84.8 cm/sec Lat Peak E' Kevin: 13.2 cm/sec Med Peak E' Kevin: 7.8 cm/sec MV A max kevin: 74.8 cm/sec E/E' lat: 6.4 E/E' med: 10.9 MV E/A: 1.1 MV V2 max: 88.6 cm/sec MV P1/2t max kevin: 88.0 cm/sec Ao V2 max: 127.8 cm/sec MV max P.1 mmHg MV P1/2t: 98.8 msec Ao max P.5 mmHg MV V2 mean: 51.0 cm/sec MV mean P.2 mmHg MV dec slope: 260.8 cm/sec2 MV V2 VTI: 28.8 cm MVA(P1/2t): 2.2 cm2 LV V1 max: 104.9 cm/sec PA V2 max: 94.5 cm/sec LV V1 max P.4 mmHg ECHO/Echo Complete W/ Contrast Interpretation Summary The study was technically difficult. Contrast injection was performed. Left ventricular systolic function is normal. The estimated ejection fraction is 65 %. Trivial mitral valve insufficiency. Trivial tricuspid valve insufficiency. Unable to estimate RV systolic pressure/pulmonary artery pressure due to techni meghan difficult study. No evidence for diastolic dysfunction. Ordering Physician: Carlton Douglas Referring Physician: Grisel Solares Performed By: Edison Diop RCS
== END ==
PROVIDERS: PCP Internal Medicine; Referring Provider Internal Medicine Cardiovascular Disease; Visit Provider Internal Medicine Cardiovascular Disease
DX: R00.1 Bradycardia, unspecified (principal); R42 Dizziness and giddiness; I10 Essential (primary) hypertension
CPT/HCPCS: 93225; 93226; 93306; Q9957; A4216; C8929; J3490

== ENCOUNTER 2021-02-28 12:25 | Outpatient (CLI) | payer OTHER, SELFPAY ==
--- NOTE | 2021-02-28 12:28 | US_ITS ---
STUDY: ULTRASOUND OF THE FEMALE PELVIS - COMPLETE REASON FOR EXAM: Female, 35 years old. Dysmenorrhea; enlarged uterus LMP: 01/17/2021. TECHNIQUE: Transabdominal and Transvaginal TECHNICAL QUALITY: Adequate. COMPARISON: None. FINDINGS: The uterus is anteverted and is in a midline position. The uterus measures 9.4 cm x 5.7 cm x 4.1 cm. Normal uterine cervix. The endometrium measures 6.4 mm in thickness, and is hyperechoic. There is no demonstrated endometrial mass. Heterogeneous appearance of the myometrium although no focal fibroid is seen. I.U.D. - The patient does not have an I.U.D. The right ovary is visualized. The right ovary measures 2.1 cm x 2 cm x 1.5 cm. There is no right ovarian cyst or ovarian mass. There is no visualized right adnexal mass or complex lesion. There is normal arterial and normal venous vascularity. The left ovary is visualized. The left ovary measures 3.7 cm x 3.4 cm x 1.9 cm. There is no left ovarian cyst or ovarian mass. There is no visualized left adnexal mass or complex lesion. There is normal arterial and normal venous vascularity. There is no fluid in the cul-de-sac. The pre void volume of the bladder was 376 ml. US/Pelvic (Non ) IMPRESSION: Heterogeneous appearance of the myometrium. Electronically Signed: Paramjit Kumari MD at 14:51 EST , Service support ,
--- NOTE | 2021-02-28 12:28 | US_ITS ---
STUDY: ULTRASOUND OF THE FEMALE PELVIS - COMPLETE REASON FOR EXAM: Female, 35 years old. Dysmenorrhea; enlarged uterus LMP: 01/17/2021. TECHNIQUE: Transabdominal and Transvaginal TECHNICAL QUALITY: Adequate. COMPARISON: None. FINDINGS: The uterus is anteverted and is in a midline position. The uterus measures 9.4 cm x 5.7 cm x 4.1 cm. Normal uterine cervix. The endometrium measures 6.4 mm in thickness, and is hyperechoic. There is no demonstrated endometrial mass. Heterogeneous appearance of the myometrium although no focal fibroid is seen. I.U.D. - The patient does not have an I.U.D. The right ovary is visualized. The right ovary measures 2.1 cm x 2 cm x 1.5 cm. There is no right ovarian cyst or ovarian mass. There is no visualized right adnexal mass or complex lesion. There is normal arterial and normal venous vascularity. The left ovary is visualized. The left ovary measures 3.7 cm x 3.4 cm x 1.9 cm. There is no left ovarian cyst or ovarian mass. There is no visualized left adnexal mass or complex lesion. There is normal arterial and normal venous vascularity. There is no fluid in the cul-de-sac. The pre void volume of the bladder was 376 ml. US/Transvaginal Non- IMPRESSION: Heterogeneous appearance of the myometrium. Electronically Signed: Paramjit Kumari MD at 14:51 EST , Service support ,
== END 2021-02-28 23:59 | disposition short-term general hospital (02) ==
LOC: OPUS 12:26
PROVIDERS: PCP Internal Medicine; Visit Provider Nurse Practitioner Women's Health
DX: N94.6 Dysmenorrhea, unspecified (principal); N85.2 Hypertrophy of uterus
CPT/HCPCS: 76830; 76856

== ENCOUNTER 2021-03-09 07:32 | Outpatient (CLI) | payer OTHER, SELFPAY ==
--- NOTE | 2021-03-09 07:16 | BI_ITS ---
MAMMOGRAPHY - BILATERAL SCREENING REASON FOR EXAM: Female, 35 years old. Routine annual screening examination. PERTINENT HISTORY: Grandmother with breast cancer. Occasional bilateral breast tenderness. History of prior left breast biopsy. TECHNIQUE: Digital bilateral breast silvia (3D mammographic acquisition) in the CC and MLO projections. 2-D mediolateral oblique (MLO) and craniocaudad (CC) views of both breasts were obtained. CAD: Full Field Digital Mammography with Computer Added Detection was performed. COMPARISON: Comparison is made with prior study dated 03/08/2020. FINDINGS: Breast Composition: The breasts are heterogeneously dense, which may obscure small masses. There are no dominant masses or suspicious calcifications. A tissue clip marker is once again seen in the upper slightly lateral aspect of the left breast. No other significant abnormalities are identified. There has been no significant change since the prior study. BI/SCRN MAMM (CAD)W/SILVIA BILAT IMPRESSION: Stable bilateral screening mammogram. Yearly follow-up mammogram recommended. (A) ASSESSMENT CATEGORY: BIRADS Category 2: Benign. A letter regarding these results will be sent to the patient by the facility within 30 days. Approximately 10% of breast cancers are not detected by mammography. A normal mammogram should not delay biopsy of a clinically suspicious abnormality. [id number] Electronically Signed: Paramjit Kumari MD at 8:31 EST , Service support ,
== END 2021-03-09 23:59 | disposition short-term general hospital (02) ==
LOC: OPBI 07:33
PROVIDERS: PCP Internal Medicine; Referring Provider Nurse Practitioner Women's Health; Visit Provider Nurse Practitioner Women's Health
DX: Z12.31 Encounter for screening mammogram for malignant neoplasm of breast (principal)
CPT/HCPCS: 77063; 77067

== ENCOUNTER 2021-03-13 05:27 | Day surgery (SDC) | payer OTHER, SELFPAY ==
[2021-03-07 12:17] LABS: Hematocrit 38.8 % (37-47); Mean Corp Hgb Conc 33.5 g/dL (32-36); Mean Corpuscular Volume 89.4 fL (81-99); Mean Platelet Vol. 10.5 fl (6.2-12.0); Platelet Count 297 K/mm3 (150-450); RBC Distribution Width CV 13.2 % (11.6-14.6); RBC Distribution Width SD 43.4 fl (35.1-43.9); Red Blood Count 4.34 M/mm3 (4.2-5.4); White Blood Count 8.5 K/mm3 (4.4-11.0)
[2021-03-07 12:58] LABS: Magnesium 2.4 mg/dL (1.6-2.6)
[2021-03-13] VITALS (11 sets, daily range): BP systolic 106–134; BP diastolic 45–78; PULSE 49–62; RESP 15–18; TEMP 35.9–36.6; O2SAT 4–100; BMI 44.7
[2021-03-13 06:03] LABS: Internal QC Validated? YES +Cl - CLEAR BKGD; Pregnancy, Urine Negative Negative
[2021-03-13] MEDS: Lactated Ringers 1,000 ML 40 ML IV (06:07)
[2021-03-13 06:31] LABS: Bedside Glucose 93 mg/dL (70-110)
[2021-03-13] MEDS: Acetaminophen 500 MG Tablet 1000 MG PO (06:35)
[2021-03-13] MEDS: Gabapentin 600 MG Tablet PO (06:36)
--- NOTE | 2021-03-13 07:20 | PCM.HP.BLA ---
History and Physical MR#:[id number]: DOMINIK JOSEPH [facility] #:[id number]:1985 Provider:Dr. Dominik Walker, DOAge/Sex: 35/F Location:[facility] [place].BWCStatus:Signed Intake Vital Signs 03/02/21 15:46 Height 5 ft 5 in Weight: 270 lb 8 oz BMI 45.0 BP 120/90 H Intake Visit Reasons: surgical consult ablation vs hyst. First Aid Nurse Required: No Is patient in pain?: No Allergies Penicillins Allergy (Severe, Verified 03/02/21 15:46) hives cefaclor [From [facility]] Allergy (Intermediate, Verified 03/02/21 15:46) Rash doxycycline Allergy (Mild, Verified 03/02/21 15:46) unknown Medications cetirizine 10 mg capsule 10 mg PO DAILY 02/15/20 [History Confirmed 03/02/21] Diltiazem 2% / Lidocaine 5% ointment (compound) #30 g 03/15/20 [Rx Confirmed 03/02/21] eletriptan 20 mg tablet See Rx Instructions .ROUTE .COMPLEX #9 tab 08/01/20 [Rx Confirmed 03/02/21] naproxen 500 mg tablet 500 mg PO BID PRN #60 tab 11/28/20 [Rx Confirmed 03/02/21] ondansetron HCl 4 mg tablet 4 mg PO Q8H PRN #90 tab 11/28/20 [Rx Confirmed 03/02/21] cholecalciferol (vitamin D3) 125 mcg (5,000 unit) capsule 125 mcg PO .MWF cap 01/02/21 [History Confirmed 03/02/21] erenumab-aooe 140 mg/mL subcutaneous auto-injector 140 mg SUBCUT QMONTH #1 ml 01/18/21 [Rx Confirmed 03/02/21] tizanidine 4 mg tablet 4 - 8 mg PO TID PRN #180 tab 02/08/21 [Rx Confirmed 03/02/21] clindamycin HCl 300 mg capsule 300 mg PO TID #21 cap 02/20/21 [Rx Confirmed 03/02/21] norethindrone (contraceptive) 0.35 mg tablet 0.35 mg PO QDAY #84 tab 02/21/21 [Rx Confirmed 03/02/21] dicyclomine 20 mg tablet 20 mg PO TID PRN #180 tab 02/28/21 [Rx Confirmed 03/02/21] pantoprazole 40 mg tablet,delayed release 40 mg PO DAILY #90 tab 02/28/21 [Rx Confirmed 03/02/21] propranolol 40 mg tablet 40 mg PO BID #180 tab 02/28/21 [Rx Confirmed 03/02/21] ubrogepant 100 mg tablet 100 mg PO ONCE PRN #10 tab 02/28/21 [Rx Confirmed 03/02/21] Post menopausal: No Patient : No : No PFSH Medical History Abnormal EKG Acid reflux Alcohol use Bipolar 1 disorder Bradycardia Carpal tunnel syndrome Chronic diarrhea Chronic headaches Chronic neck and back pain Environmental allergies Essential hypertension Former smoker Gastric reflux GI bleed H/O emotional problems H/O hemorrhoids History of eating disorder History of gallstones History of IBS History of UTI Hx of vertigo Hypertension IBS (irritable bowel syndrome) Migraine headache Neuropathy Nonscarring hair loss Screening for thyroid disorder Severe headache Tinnitus Tinnitus, right vision problem with headache Wears dentures Wears glasses Wears partial dentures Surgical History H/O dilation and curettage History of cholecystectomy History of tonsillectomy history of upper and lower scope Family History Mother Hypertension Arthritis Anemia Father Diabetes Anesthesia complication Brother Brain cancer Anxiety Sister Asthma Grandmother CVA (cerebral vascular accident) Daughter Anxiety Grandfather COPD (chronic obstructive pulmonary disease) CVA (cerebral vascular accident) Other Seizures Social History household members: spouse and children number of children: 3 current occupational status: employed current occupation: [employer] history of recent travel: No sexually active: Yes Smoking Status: Former smoker alcohol intake: never substance use type: does not use caffeine: No what type of physical activity do you participate in: running frequency: 3-4 times per week seatbelt use: always do you feel safe at home: Yes additional social history: - Donald MERCEDES surgical consult ablation vs hyst. Details: DOMINIK JOSEPH is a 35 year old (vaginal deliveries) who presents for consultation for robotic hysterectomy. Her uterus is 9-10 cm and shows signs of adenomyosis. She has a h/o trying IUD, combination ocps, and progesterone only ocps. She continues to have heavy periods with a lot of cramping. She has migraines with aura and is no longer able to take hormone replacement. She also has as h/o chronic right lower quadrant pain and she believes this comes from the right ovary Pregancy History 4 Elective abortions Hx Para 3 Spontaneous abortions 1 Hx # Term Pregnancies Ectopic pregnancies Hx # Pregnancies Multiple births # of living children 3 Past Pregnancies Del. Date Name GA/Weeks Outcome Route Bth Weight [facility] 2001 Unknown alicia 2004 Unknown olivya 2006 ROS Const ROS Unobtainable: All systems reviewed & are unremarkable except as noted in H Cardio Card: Reports system reviewed and no additional complaints, except as documented Resp Resp: Reports system reviewed and no additional complaints, except as documented; Denies cough GI GI: Reports as per HPI Skin Skin/Breast: Reports system reviewed and no additional complaints, except as documented Psych Psych: Reports system reviewed and no additional complaints, except as documented Exam Const General: cooperative, healthy appearing, comfortable and no acute distress Resp Effort & Inspection: normal respiratory effort Skin General: no rashes or lesions noted Psych Appearance: grossly normal Speech and Movement: speech and movement normal Coding Level of Care Code Off vis,est,level 4 Diagnoses Enlarged uterus N85.2 Dysmenorrhea N94.6 Menorrhagia N92.0 Assessment and Plan Assessment and Plan (1) Enlarged uterus: Status: Acute (2) Dysmenorrhea: Status: Acute (3) Menorrhagia: Status: Acute Plan - Dr. Dominik Walker, DO: after a long (30 min) discussion, the plan is to proceed with hysterectomy. Discussed with the patient risks of surgery including risks of anesthesia, bleeding, infection, damage to surrounding structures such as bowel, bladder, or vasculature that could lead to additional surgery to repair. I discussed the risk of needing to convert to open abdominal procedure if unable to perform the procedure laparoscopically. UPDATE- I have seen the patient and performed any clinically relevant updates to the history and physical exam. Dominik Walker, DO
--- NOTE | 2021-03-13 07:20 | PCM.DC ---
Discharge Instructions Diet Discharge Diet: Light diet - advance as tolerated Activity Discharge Activity: May Not Drive May resume sexual activity in: 8 weeks Weight Bearing Status: Weight bearing as tolerated Dressing / Incision Call your doctor if your incision/area has: Sudden Increased Bleeding, Foul Smelling Discharge and - (Sudden increase in pain ) Call your doctor if you observe: Fever of 101 or Higher, Inability to urinate, Shortness of breath, Dizziness, Chest pain, Calf discomfort and Uncontrolled pain Change Dressing in: leave in place till F/U Cleanse incision/area with: Keep Dressing Clean & Dry Follow Up Care Please Follow Up With: Ana Maria Walker DO When: 2 weeks Test Results: Test results from this visit will be discussed in further detail at your follow-up appointment, if applicable. Discharge Plan Admission Primary Reason for Your Visit: hysterectomy Attending Provider: Ana Maria Walker Primary Care Provider: Grisel Solares Discharge Orders/Prescriptions Prescriptions: New oxycodone-acetaminophen [Percocet] 5-325 mg tablet 1 tab PO Q4H PRN (Reason: pain) 7 Days Qty: 28 RF: 0 docusate sodium [Colace] 100 mg capsule 100 mg PO BID 14 Days Qty: 28 RF: 0 ibuprofen 800 mg tablet 800 mg PO Q8H PRN (Reason: pain) 7 Days Qty: 30 RF: 0 Continued cholecalciferol (vitamin D3) 125 mcg (5,000 unit) capsule 125 mcg PO .MWF RF: 0 dicyclomine 20 mg tablet 20 mg PO TID PRN (Reason: abdominal pain) Qty: 180 RF: 3 [id number] Drops,Suspension otic (ear) TID RF: 0 Zyrtec 10 mg capsule 10 mg PO DAILY RF: 0 tizanidine [Zanaflex] 4 mg tablet 4 - 8 mg PO TID PRN (Reason: neck pain) RF: 0 propranolol 40 mg tablet 40 mg PO BID RF: 0 pantoprazole [Protonix] 40 mg tablet,delayed release (DR/EC) 40 mg PO DAILY RF: 0 eletriptan [Relpax] 20 mg tablet See Rx Instructions .ROUTE .COMPLEX RF: 0 Aimovig Autoinjector 140 mg/mL auto-injector 140 mg subcut QMONTH RF: 0 Ubrelvy 100 mg tablet 100 mg PO ONCE PRN (Reason: migraine headache) Qty: 10 RF: 2 Discontinued norethindrone (contraceptive) [Ada] 0.35 mg tablet 0.35 mg PO QDAY Qty: 84 RF: 4 naproxen 500 mg tablet 500 mg PO BID PRN (Reason: pain) Qty: 60 RF: 0 No Action ondansetron HCl [Zofran] 4 mg tablet 4 mg PO Q8H PRN (Reason: nausea and vomiting) Qty: 90 RF: 1 Referrals / Follow Up: Grisel oSlares MD [Primary Care Provider] - Disposition Disposition (needs filled in before D/C Order can be placed): Home, Self Care
--- NOTE | 2021-03-13 07:30 | HYST_PTH ---
PATIENT: DOMINIK JOSEPH LOC: [facility] [place] U#:[id number] AGE/SX: 35/F ROOM: RE03/13/[address]: Dr. Dominik Walker DO : 1985 BED: DIS: 03/13/2021 SPEC #: [id number] RECD: 03/13/21 13:19 STATUS: EHSAN MATHEW #: [id number] SELWYN: 03/13/21 07:[address]: Dominik Walker DEPT: SURGICAL PATHOLOGY RECD BY: Eladia Gray ENTERED: 03/13/21 14:11 SP TYPE: HYSTERECT OTHR DR: Dr. Grisel Solares MD Tissues: Uterus, NOS Procedures: Surgery Specimen Level V HEADER OPERATION: Total robotic hysterectomy, right salpingo-oophorectomy PRE-OP DIAGNOSIS: Enlarged uterus, dysmenorrhea, menorrhagia TISSUE SUBMITTED: Uterus, cervix, bilateral fallopian tubes, right ovary MICROSCOPIC DIAGNOSIS Uterus, hysterectomy: Cervix ? nabothian cysts and chronic inflammation. Endometrium ? transition endometrium. Myometrium ? adenomyosis. Right fallopian tube ? benign paratubal cyst. Right ovary ? follicular cysts and corpus luteal cysts. Left fallopian tube - no pathologic change. Left ovary ? follicular cysts and corpus luteal cysts. AM:willi 03/14/2021 MICROSCOPIC DESCRIPTION Slides are reviewed. GROSS DESCRIPTION Received in fixative is one container labeled with the patient's name and designated uterus, cervix, bilateral fallopian tube, right ovary. The specimen consists of a hysterectomy specimen consisting of uterus with cervix, attached right fallopian tube and ovary and attached left fallopian tube. The uterus with cervix weighs 99 gm and measures 9.5 x 5.5 x 4 cm. The serosal surface is last, glistening. The ectocervical mucosa is focally eroded. The external os is oval in contour and covered with hemorrhagic mucoid material. The endocervical canal measures 3.5 cm in length and the endocervical mucosa is last, glistening and unremarkable. Sections of the cervix reveal a few cysts filled with mucoid material. The triangular endometrial cavity measures 4.5 cm in length and 2 cm in width. The endometrium is last, glistening without any mass lesion and measures 0.1 cm in thickness. Sections of the uterine wall do not reveal any mass lesion and measures up to 2.5 cm in thickness. The right fallopian tube measures 5.5 cm in length and 0.4 cm in diameter. The fimbrial end is identified. No tubo-ovarian adhesions are noted. Sections reveal unremarkable cut surfaces. A paratubal cyst is noted measuring 0.4 cm in greatest dimension. The soft to cystic right ovary measures 4 x 2.5 x 1.5 cm. Sections reveal multiple cysts filled with clear to hemorrhagic fluid. The largest cyst measures 1 cm in greatest dimension. A few corpus lutea are also noted. The left fallopian tube is similar appearance to right and measures 6 cm in length and 0.6 cm in diameter. [facility] Chief Financial Officer sections are submitted in nine cassettes as follows: 1 - anterior cervix, 2 - posterior cervix, 3 & 4 - anterior uterine wall, 5 & 6 - posterior uterine wall, 7 ? right fallopian tube and ovary, 8 ? more sections right ovary, 9 ? left fallopian tube. / BIJAN:willi 03/13/2021 TC:5 CPT: 92759
--- NOTE | 2021-03-13 07:30 | HYST_PTH ---
PATIENT: DOMINIK JOSEPH [place] [facility] [place][id number] AGE/SX: 35/F ROOM: RE03/13/[address]: Dr. Dominik Walker DO : 1985 BED: DIS: 03/13/2021 SPEC #: [id number] RECD: 03/13/21 13:19 STATUS: EHSAN MATHEW #: [id number] SELWYN: 03/13/21 07:[address]: Dominik Walker DEPT: SURGICAL PATHOLOGY RECD BY: Eladia Gray ENTERED: 03/13/21 14:11 SP TYPE: HYSTERECT OTHR DR: Dr. Grisel Solares MD Tissues: Uterus, NOS Procedures: Surgery Specimen Level V HEADER OPERATION: Total robotic hysterectomy, right salpingo-oophorectomy PRE-OP DIAGNOSIS: Enlarged uterus, dysmenorrhea, menorrhagia TISSUE SUBMITTED: Uterus, cervix, bilateral fallopian tubes, right ovary MICROSCOPIC DIAGNOSIS Uterus, hysterectomy: Cervix ? nabothian cysts and chronic inflammation. Endometrium ? transition endometrium. Myometrium ? adenomyosis. Right fallopian tube ? benign paratubal cyst. Left fallopian tube - no pathologic change. Right ovary ? follicular cysts and corpus luteal cysts. AM:willi 03/14/2021 AM:willi 04/02/2021 MICROSCOPIC DESCRIPTION Slides are reviewed. GROSS DESCRIPTION Received in fixative is one container labeled with the patient's name and designated uterus, cervix, bilateral fallopian tube, right ovary. The specimen consists of a hysterectomy specimen consisting of uterus with cervix, attached right fallopian tube and ovary and attached left fallopian tube. The uterus with cervix weighs 99 gm and measures 9.5 x 5.5 x 4 cm. The serosal surface is last, glistening. The ectocervical mucosa is focally eroded. The external os is oval in contour and covered with hemorrhagic mucoid material. The endocervical canal measures 3.5 cm in length and the endocervical mucosa is last, glistening and unremarkable. Sections of the cervix reveal a few cysts filled with mucoid material. The triangular endometrial cavity measures 4.5 cm in length and 2 cm in width. The endometrium is last, glistening without any mass lesion and measures 0.1 cm in thickness. Sections of the uterine wall do not reveal any mass lesion and measures up to 2.5 cm in thickness. The right fallopian tube measures 5.5 cm in length and 0.4 cm in diameter. The fimbrial end is identified. No tubo-ovarian adhesions are noted. Sections reveal unremarkable cut surfaces. A paratubal cyst is noted measuring 0.4 cm in greatest dimension. The soft to cystic right ovary measures 4 x 2.5 x 1.5 cm. Sections reveal multiple cysts filled with clear to hemorrhagic fluid. The largest cyst measures 1 cm in greatest dimension. A few corpus lutea are also noted. The left fallopian tube is similar appearance to right and measures 6 cm in length and 0.6 cm in diameter. Pcat Instructor sections are submitted in nine cassettes as follows: 1 - anterior cervix, 2 - posterior cervix, 3 & 4 - anterior uterine wall, 5 & 6 - posterior uterine wall, 7 ? right fallopian tube and ovary, 8 ? more sections right ovary, 9 ? left fallopian tube. / BIJAN:willi 03/13/2021 TC:5 CPT: 13711
[2021-03-13] MEDS: Bupivacaine 0.25% 30 ML Vial (09:09)
[2021-03-13] MEDS: Ondansetron 4 MG/2 ML Vial IV (09:10)
--- NOTE | 2021-03-13 09:28 | PCM.OP.BLANK ---
Problems Associated Problem List Diagnoses (1) Dysmenorrhea: (2) Enlarged uterus: (3) Menorrhagia: Operative Report Date of Procedure: 03/13/21 Preoperative diagnosis:Enlarged uterus, Morbid obesity, dysmenorrhea, pelvic pain, menorrhgia Postoperative diagnosis: Enlarged uterus, Morbid obesity, dysmenorrhea, pelvic pain, menorrhgia Surgeon: Ana Maria Walker DO Private Inquiry Agent: ALISON Townsend Procedure: Total robotic hysterectomy right salpingo-oophorectomy, right salpingectomy and cystoscopy Anesthesia: General endotracheal intubation Estimated blood loss: 100cc Urine output:900cc Drains: None Implanted material: None Complications: None Findings: 10 week size uterus, normal appearing left ovary, right ovarian cyst, side wall adhesions of right adnexa, normal fallopian tubes. powder burn wade on the anterior abdominal wall superior to bladder. Cystoscopy showed no evidence of leaking at approximately 250 cc of normal saline, positive ureteral orifices and jet flow are seen and no suture material was appreciated in the bladder. Specimens removed: Uterus and cervix, Bilateral tubes and right ovary Reason for surgery: This is a 35-year-old G 3, P3 who presented to my office with history of 15 years of right lower quadrant pain, menorrhagia, dysmenorrhea, and a 10 cm uterus. The planned procedure is for a robotic hysterectomy with removal of both fallopian tubes and the right ovary. The risks benefits and alternatives were discussed with the patient the patient had a clear understanding of the procedure and a consent form was signed. Procedure: The patient was placed in the dorsal low lithotomy position and prepped and draped in the normal sterile fashion both abdominally and in the perineum. Her legs were placed in stirrups a Hu catheter was inserted into the urethra without difficulty. A weighted speculum was placed in the vagina and a single-tooth tenaculum was used to grasp the anterior lip of the cervix. A uterine manipulator was inserted through the cervix without complication. It was then tied into place at the 2 and 10:00 locations on the cervix. Gloves were changed and attention was turned towards the abdomen. Approximately 23 cm above the pubic symphysis in the midline, and after Marcaine injection, a 8 mm incision was made. An 8 mm trocar was inserted through the laparoscope, then inserted into the abdomen under direct visualization using the laparoscope. Good abdominal placement was noted and no complications were appreciated. An air seal device was utilized to create pneumoperitoneum. At 12 cm lateral to the midline on the left and right sides 8 mm accessory ports were placed. Next a left upper quadrant 8 mm assistant credit manager port site was placed. The patient was placed in steep Trendelenburg position. The robot was docked. The hysterectomy was initiated first by taking down the round ligament on each side using the vessel sealer device. On the right side, the peritoneum between the round ligament and the IP ligament was opened using electrocautery and extended the length of the IP ligament. The IP ligament was then taken down using the vessel sealer device. These areas were freed without complication the broad ligament was then and taken down using the vessel sealer device. Next the bladder flap was taken down without complication. This was done using monopolar cautery to the level of the cervical vaginal junction. After the bladder flap was created, uterine vessels were then isolated and cauterized using the vessel sealer device and EndoShears. The left fallopian tube was grasped and the the underlying mesosalpinx was cauterized and cut. The broad ligament and cardinal ligaments were cauterized and cut. At this point the uterine vessels were taken down further starting from the ascending branch, dissecting along the edges of the cervix to the level of the cervical vaginal junction with hemostasis appreciated. The cervical vaginal junction was then using monopolar cautery in a circumferential pattern across the superior aspect of the cervix. The specimen was delivered through the vagina and sent to pathology. The remaining vaginal cuff was then closed using v- lock suture. This was performed in a running technique. Excellent hemostasis was obtained and good closure was noted. Irrigation was then performed. All operative sites were noted to be hemostatic. A cystoscopy was performed with a 70 degree cystoscope through the urethra into the bladder without complication. The bladder was instilled with approximately 250 cc of normal saline. Intraoperative images were made. Ureteral orifices and jets were identified. No suture material was appreciated in the bladder. The bladder was then drained and cystoscope was removed. The abdominal cavity was again examined using the laparoscope after the robot was undocked. All operative sites were noted to be hemostatic. The trochars were removed under direct visualization without complication and pneumoperitoneum was reduced. At this point the skin was then closed using 4-0 Monocryl subcuticular stitch and sealed with surgical glue. The patient tolerated the procedure well sponge lap and needle counts were correct x2 the patient was taken to the recovery room in stable condition. Multi Select Codes Urinary/Genital Urinary/Genital CPT Codes: 83446 Cystoscopy and 35528 TLH+BS/O <250gr uterus
[2021-03-13] MEDS: Lactated Ringers @ 70 MLS/HR 70 ML IV (09:36)
[2021-03-13] MEDS: Lactated Ringers 1,000 ML 500 ML IV (11:40)
[2021-03-13] MEDS: HYDROcodone Bitartrate/Apap 5/325 Tablet PO (13:45)
== END 2021-03-13 23:59 | disposition home or self-care (01) ==
LOC: SDC 05:30 → AC 05:30
PROVIDERS: Anesthesiology; PCP Internal Medicine; Referring Provider Obstetrics & Gynecology; Visit Provider Obstetrics & Gynecology
PROC: 0UT94ZZ Resection of Uterus, Percutaneous Endoscopic Approach (ICD-10-PCS; CPT 58571; principal; 2021-03-13 07:10)
DX: N94.6 Dysmenorrhea, unspecified (principal); E66.01 Morbid (severe) obesity due to excess calories; Z68.41 Body mass index [BMI] 40.0-44.9, adult; N92.0 Excessive and frequent menstruation with regular cycle; I10 Essential (primary) hypertension; N80.0 Endometriosis of uterus; N88.8 Other specified noninflammatory disorders of cervix uteri; N83.8 Other noninflammatory disorders of ovary, fallopian tube and broad ligament; N83.01 Follicular cyst of right ovary; N83.02 Follicular cyst of left ovary; N83.11 Corpus luteum cyst of right ovary; N83.12 Corpus luteum cyst of left ovary; K21.9 Gastro-esophageal reflux disease without esophagitis; Z90.49 Acquired absence of other specified parts of digestive tract; Z79.899 Other long term (current) drug therapy; Z87.891 Personal history of nicotine dependence
CPT/HCPCS: 58571; S2900; 00840; 81025; 82962; 83735; 85027; 86850; 86900; 86901; 88307; J7120; J2405

== ENCOUNTER → 2021-10-01 | Outpatient (CLI) | payer OTHER, SELFPAY ==
--- NOTE | 2021-10-01 13:27 | NEURO_ITS ---
NCS and/or EMG Patient Report Ordering Doctor: Radha Gordillo NP DATE OF SERVICE: 10/01/21 Indication: Bilateral hand pain, numbness and tingling (right greater than left) for several years, but worsening of late. Evaluate for entrapment neuropathy. Findings: Nerve conduction studies were performed in the right and left upper extremities. The right median motor study recording the abductor pollicis brevis showed a normal amplitude, prolonged distal latency and normal conduction velocity. The right ulnar motor study recording the abductor digiti minimi showed a normal amplitude, normal distal latency and normal conduction velocity. No conduction block or focal slowing was present across the elbow. The right median sensory response recording digit two showed a normal amplitude, prolonged latency and slowed conduction velocity. The right ulnar sensory response recording digit five showed a normal amplitude, latency and conduction velocity. The right radial sensory response recording over the extensor snuff box showed a normal amplitude, latency and conduction velocity. The left median motor study recording the abductor pollicis brevis showed a normal amplitude, normal distal latency and normal conduction velocity. The left ulnar motor study recording the abductor digiti minimi showed a normal amplitude, normal distal latency and normal conduction velocity. No conduction block or focal slowing was present across the elbow. The left median sensory response recording digit two showed a normal amplitude, borderline latency and mildly slowed conduction velocity. The left ulnar sensory response recording digit five showed a normal amplitude, latency and conduction velocity. The left radial sensory response recording over the extensor snuff box showed a normal amplitude, latency and conduction velocity. Right median-ulnar lumbrical / interosseous motor latencies showed a prolonged median latency compared to the ulnar. Left median-ulnar lumbrical / interosseous motor latencies showed a prolonged median latency compared to the ulnar. Needle EMG of the right upper extremity and cervical paraspinal muscles was performed. No denervation was seen in any muscle. All motor unit morphology, activation and recruitment patterns were normal. Needle EMG of the left upper extremity was omitted given the paucity of findings in the more symptomatic limb. Impression: This is an abnormal study. 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 Findings are electrically mild on the right and borderline on the left. The pathophysiology is demyelinating and compatible with the clinical diagnosis of carpal tunnel syndrome. In addition, there is no electrophysiologic evidence of superimposed cervical radiculopathy in the right upper extremity. Toni Todd D.O. Multi Select Codes Neurology Neurology Interp Codes: 23802-26 [facility] [place] test done w/n test comp (interp) and 93617-65 [facility] (interp)
== END | disposition home or self-care (01) ==
LOC: PSN 11:56
PROVIDERS: PCP Internal Medicine; Referring Provider Nurse Practitioner Family; Visit Provider Nurse Practitioner Family
DX: G56.01 Carpal tunnel syndrome, right upper limb (principal); R20.2 Paresthesia of skin; R20.0 Anesthesia of skin
CPT/HCPCS: 95886; 95913

== ENCOUNTER → 2021-11-16 | Outpatient (CLI) | payer OTHER, SELFPAY ==
[2021-11-16 11:23] LABS: Bacteria 0 SEEN /hpf (None Seen); Mucous, Urine 0 SEEN /hpf (<or=2+); Red Blood Cells-Urine 0 SEEN /hpf (0-5); Squamous Epithelial Cells - UA 0 SEEN /hpf (5-10); White Blood Cells 0 SEEN /hpf (0-5)
[2021-11-16 11:57] LABS: Color, Urine Yellow (Yellow); Glucose, Dipstick Normal (Normal); Ketone-Dipstick Negative (Negative); Leukocyte Esterase-Dipstick Negative /ul (Negative); Nitrite-Dipstick Negative (Negative); Occult Blood-Urine Negative /ul (Negative); Protein-Dipstick Negative (Negative); Specific Gravity, Urine 1.005 (1.002-1.030); Urine Bilirubin Dipstick Negative (Negative); Urine Clarity Clear (Clear); Urine Urobilinogen Normal (Normal); Urine pH 6.5 (5.0 - 8.0)
== END | disposition home or self-care (01) ==
LOC: LABSPEC 11:21
PROVIDERS: PCP Internal Medicine; Referring Provider Nurse Practitioner Family; Visit Provider Nurse Practitioner Family
DX: R30.0 Dysuria (principal)
CPT/HCPCS: 81001; 87086; 87088

== ENCOUNTER 2022-02-13 13:32 | Emergency (ER) | payer OTHER, SELFPAY ==
[2022-02-13 13:32] VITALS: BP 124/74; PULSE 52; RESP 18; TEMP 36.3; O2SAT 95; BMI 41.5
[2022-02-13 14:19] LABS: Absolute Lymphocyte Count 1.47 X10^3/uL (0.83-4.51); Absolute Neutrophil Count 3.9 X10^3/uL (2.0-7.7); Basophil# 0.04 X10^3/uL; Basophil% 0.6 % (0-1); Eosinophil# 0.17 X10^3/uL; Eosinophils% 2.6 % (0-5); Hematocrit 37.2 % (37-47); Hemoglobin 12.4 g/dL (12.0-15.0); Lymphocyte # 1.47 X10^3/ul (0.83-4.51); Lymphocyte % 22.5 % (19-41); Mean Corp Hgb Conc 33.3 g/dL (32-36); Mean Platelet Vol. 9.9 fl (6.2-12.0); Monocyte# 0.89 X10^3/uL; Monocyte% 13.7 % (0-10); NRBC Flagged by Analyzer 0 % (0-5); Neutrophil # 3.94 X10^3/uL (2.7-7.7); Neutrophil % 60.4 % (47-70); Platelet Count 212 K/mm3 (150-450); RBC Distribution Width CV 12.9 % (11.6-14.6); White Blood Count 6.5 K/mm3 (4.4-11.0)
[2022-02-13 14:31] LABS: Anion Gap 6 (5-15); BUN 8 mg/dL (7-18); BUN/Creat Ratio 9.8 RATIO (10-20); Chloride 108 mmol/L (98-107); Creatinine, Serum 0.81 mg/dL (0.55-1.02); EST Glomerular Filtration Rate 84 mL/min (>60); Est Glom Filt Rate - Afr Amer 101 mL/min (>60); Estimated Creatinine Clearance 85.57 ml/min; Glucose 97 mg/dL (74-106); Potassium 3.4 mmol/L (3.5-5.1); Sodium Level 141 mmol/L (136-145)
[2022-02-13 14:41] VITALS: O2SAT 99
--- NOTE | 2022-02-13 14:47 | EX.ED.DYSGE1 ---
HPI History of Present Illness Chief Complaint: Dizziness Informant: patient Narrative Narrative: Patient has been having bradycardia and lightheadedness. She has noticed over the last 2 or so days that her heart rate is may be running a little slower than normal. Per her, normal heart rate is in the low 50s and down into the 40s. She has had it go down in the upper 30s a couple times. She is on propanolol 40 mg twice a day for chronic migraines that as it has been the most effective in management. She is not having migraines now. She has not changed her dose recently. She saw her tele grout sewer line repairer. They got a EKG with heart rate at 39 and sent her over here. They stated that she can go back to work unless she has symptoms. She had symptoms after coming here so she came down. She was told to reduce her dose to 20 twice a day. She denies recent nausea vomiting diarrhea. She had a fever on Friday but not before or since. She does not feel ill. She is not having chest pain. She had heart work-up with echo and stress test about a year ago that is reported normal per her. Sitting in bed she actually feels fine. She has not actually passed out. [facility] Medical History Abnormal EKG Acid reflux Alcohol use Bilateral carpal tunnel syndrome Bipolar 1 disorder Bradycardia Carpal tunnel syndrome Chest pain Chronic diarrhea Chronic headaches Chronic neck and back pain Environmental allergies Essential hypertension Former smoker Gastric reflux GI bleed H/O emotional problems H/O hemorrhoids History of eating disorder History of echocardiogram History of gallstones History of IBS History of irregular heartbeat History of stress test History of UTI Hx of vertigo Hypertension IBS (irritable bowel syndrome) Migraine headache Neuropathy Nonscarring hair loss Numbness and tingling in both hands Positive Tinel's sign Right ear impacted cerumen Screening for thyroid disorder Severe headache Tinnitus Tinnitus, right vision problem with headache Wears dentures Wears glasses Wears partial dentures Home Medications cetirizine 10 mg capsule (Zyrtec) 10 mg PO DAILY 02/15/20 [History Last Taken Unknown] cholecalciferol (vitamin D3) 125 mcg (5,000 unit) capsule 125 mcg PO .MWF 01/02/21 [History Last Taken Unknown] ibuprofen 800 mg tablet 800 mg PO Q8H PRN pain 7 days #30 tabs 03/13/21 [Rx Last Taken Unknown] eletriptan 20 mg tablet (Relpax) See Rx Instructions .Route .COMPLEX #9 tabs 08/22/21 [Rx Last Taken Unknown] erenumab-aooe 140 mg/mL subcutaneous auto-injector (Aimovig Autoinjector) 140 mg subcut QMONTH migraines #1 mL 08/22/21 [Rx Last Taken Unknown] ondansetron HCl 4 mg tablet 4 mg PO Q8H PRN nausea and vomiting #90 tabs 08/22/21 [Rx Last Taken Unknown] tizanidine 4 mg tablet (Zanaflex) 4 - 8 mg PO QHS PRN neck pain #60 tabs 08/22/21 [Rx Last Taken Unknown] ubrogepant 100 mg tablet (Ubrelvy) 100 mg PO ONCE PRN migraine headache #16 tabs 08/22/21 [Rx Last Taken Unknown] dicyclomine 20 mg tablet 20 mg PO TID PRN abdominal pain #180 tabs 11/16/21 [Rx Last Taken Unknown] pantoprazole 40 mg tablet,delayed release (Protonix) 40 mg PO DAILY reflux #90 tabs 11/16/21 [Rx Last Taken Unknown] buspirone 10 mg tablet 10 mg PO TID #90 tabs 12/25/21 [Rx Last Taken Unknown] propranolol 20 mg tablet 20 mg PO BID BP #90 tabs 02/13/22 [Rx Last Taken Unknown] Allergy/AdvReac Type Severity Reaction Status Date / Time Penicillins Allergy Severe hives Verified 02/13/22 13:35 cefaclor [From [facility]] Allergy Intermediate Rash Verified 02/13/22 13:35 doxycycline Allergy Mild unknown Verified 02/13/22 13:35 Family History Mother Hypertension Arthritis Anemia Father Diabetes Anesthesia complication Brother Brain cancer Anxiety Sister Asthma Grandmother CVA (cerebral vascular accident) Daughter Anxiety Grandfather COPD (chronic obstructive pulmonary disease) CVA (cerebral vascular accident) Other Seizures Surgical History H/O dilation and curettage History of cholecystectomy History of hysterectomy History of right salpingo-oophorectomy History of salpingectomy History of tonsillectomy history of upper and lower scope Hx of colonoscopy Hx of esophagogastroduodenoscopy Social History household members: spouse and children number of children: 3 current occupational status: employed current occupation: [employer] history of recent travel: No sexually active: Yes Smoking Status: Former smoker alcohol intake: never substance use type: does not use caffeine: No what type of physical activity do you participate in: running frequency: 3-4 times per week seatbelt use: always do you feel safe at home: Yes additional social history: - Donald BONILLA ROS ED Constitutional Constitutional ED: Denies chills or subjective Eyes Eyes: Denies change in vision ENT ENT ED: Denies rhinorrhea or sore throat Cardiovascular Cardiovascular: Reports other Details: See history of present illness ; Denies chest pain Respiratory/Chest Respiratory/Chest: Denies cough or dyspnea Gastrointestinal Gastrointestinal: Denies diarrhea, nausea or vomiting Genitourinary Genitourinary ED: Denies dysuria or hematuria Musculoskeletal Musculoskeletal: Denies myalgias Integumentary Denies rash Neurologic Neurologic: Reports headache(s) and other Details: She has a history of headaches but not having one now. ; Denies paresthesias or weakness Endocrine Endocrinology: Denies polydipsia or polyuria Hematologic/Lymphatic Hematologic/Lymphatic: Denies easy bleeding or easy bruising Allergic/Immunologic Allergic/Immunologic ED: Denies urticaria EXAM Physical Exam Const Vital Signs: 02/13/22 13:32 02/13/22 14:41 02/13/22 14:42 Temperature 97.4 F L Temperature Source Temporal Pulse Rate 52 L Pulse Rate [Lying] Pulse Rate [Sitting (for 1 minute prior to obtaining)] Pulse Rate [Standing (for 1 minute prior to obtaining)] Respiratory Rate 18 Respiratory Effort Normal Respiratory Pattern Normal Blood Pressure 124/74 H Blood Pressure [Lying] Blood Pressure [Sitting (for 1 minute prior to obtaining)] Blood Pressure [Standing (for 1 minute prior to obtaining)] Blood Pressure Mean 90 Blood Pressure Mean [Lying] Blood Pressure Mean [Sitting (for 1 minute prior to obtaining)] Blood Pressure Mean [Standing (for 1 minute prior to obtaining)] Pulse Ox 95 99 Oxygen Delivery Method Room Air Room Air 02/13/22 17:26 02/13/22 17:54 02/13/22 15:55 Temperature Temperature Source Pulse Rate Pulse Rate [Lying] 54 L Pulse Rate [Sitting (for 1 minute prior to obtaining)] 64 Pulse Rate [Standing (for 1 minute prior to obtaining)] 60 Respiratory Rate Respiratory Effort Respiratory Pattern Normal Blood Pressure Blood Pressure [Lying] 129/91 H Blood Pressure [Sitting (for 1 minute prior to obtaining)] 134/98 H Blood Pressure [Standing (for 1 minute prior to obtaining)] 147/92 H Blood Pressure Mean Blood Pressure Mean [Lying] 103 Blood Pressure Mean [Sitting (for 1 minute prior to obtaining)] 110 Blood Pressure Mean [Standing (for 1 minute prior to obtaining)] 110 Pulse Ox 99 Oxygen Delivery Method Room Air Positive well nourished and well developed General Appearance ED: well developed and NAD; Negative for cyanotic or diaphoretic HEENT Reports moist mucous membranes Eyes General Eye ED: Negative for pale conjunctiva or scleral icterus Neck no JVD Resp clear to auscultation bilaterally Auscultation: Negative for rales, rhonchi or wheezes Cardio regular rhythm and no murmurs Rate: bradycardia GI normal to inspection, nondistended, normoactive bowel sounds and non-tender Back/Spine no CVA tenderness Extremity normal to inspection General Extremety ED: Negative for edema or tenderness General Extremity: Negative for edema Neuro Sensorium / Orientation: alert Psych mental status grossly normal Skin no rashes or lesions noted MDM MDM MDM Narrative Medical decision making narrative: Patient's blood work shows normal CBC including white count hemoglobin and platelets. Electrolytes were normal other than mildly low potassium at 3.4. Because she has symptomatic bradycardia this was replaced orally. We also gave her IV fluids. We checked troponin which was negative. Patient's recheck. She states she still gets very dizzy and lightheaded when she stands up. It causes her to have nausea and dry heaves. She is uncomfortable going home at this time. I will recheck her EKG and do orthostatic vitals. These are pending. Repeat EKG is still a sinus rhythm with bradycardic rate at 49. This is really about where her baseline is. Her orthostatics showed her blood pressure was 129/91 with a heart rate of 54 while laying. Standing up, her heart rate was 60 with a blood pressure 147/92. She is feeling better. I also discussed the case with her tele grout sewer line repairer, Dr. Douglas. We will continue the plan of decreasing her propanolol to 20 mg twice a day. She can hold this evening's dose as she is already received a total of 40 mg today. If she is still having symptoms we may end up needing to stop the propanolol and she will have to discuss with her neurologist or primary care other management of the headaches. She is currently not having migraine. Lab Data Attestation: I reviewed the patient's lab results. Labs: Laboratory Results - last 24 hr 02/13/22 02/13/22 02/13/22 14:07 14:07 14:07 WBC 6.5 RBC 4.00 L Hgb 12.4 Hct 37.2 MCV 93.0 MCH 31.0 MCHC 33.3 RDW Std Deviation 44.0 H RDW Coeff of [place] 12.9 Plt Count 212 MPV 9.9 Immature Gran % (Auto) 0.200 Neut % (Auto) 60.4 Lymph % (Auto) 22.5 [place] % (Auto) 13.7 H Eos % (Auto) 2.6 Baso % (Auto) 0.6 Absolute Neuts (auto) 3.9 Absolute Lymphs (auto) 1.47 Nucleated RBC % 0 Sodium 141 Potassium 3.4 L Chloride 108 H Carbon Dioxide 27.0 Anion Gap 6 BUN 8 Creatinine 0.81 Estim Creat Clear Calc 85.57 Est GFR (MDRD) Af Amer 101 Est GFR (MDRD) Non-Af 84 BUN/Creatinine Ratio 9.8 L Glucose 97 Calcium 9.0 Troponin I High Sens 8 EKG Initial EKG: Comments: EKG done for bradycardia and lightheadedness and read by me showed sinus rhythm but bradycardic rate of 47. No ventricular ectopy. NH interval, QRS duration and QTc are all normal. No acute ST elevation or depression. Discharge Plan Triage Chief Complaint: Dizziness ED Provider: Liang Shin Dx/Rx/DC Orders Clinical Impression: Symptomatic bradycardia Instructions: ED Bradycardia Prescriptions: No Action cholecalciferol (vitamin D3) 125 mcg (5,000 unit) capsule 125 mcg PO .MWF Label Comments: takes 3 times a week eletriptan [Relpax] 20 mg tablet See Rx Instructions .ROUTE .COMPLEX Qty: 9 6RF Rx Instructions: take 1 tab at onset of headache; may repeat 1 tab x1 after at least 2 hrs; max 2 doses/day Aimovig Autoinjector 140 mg/mL auto-injector 140 mg subcut QMONTH Qty: 1 6RF ondansetron HCl 4 mg tablet 4 mg PO Q8H PRN (Reason: nausea and vomiting) Qty: 90 6RF tizanidine [Zanaflex] 4 mg tablet 4 - 8 mg PO QHS PRN (Reason: neck pain) Qty: 60 6RF Ubrelvy 100 mg tablet 100 mg PO ONCE PRN (Reason: migraine headache) Qty: 16 6RF Rx Instructions: as a single dose; may repeat once in >=2 hours after first dose if needed dicyclomine 20 mg tablet 20 mg PO TID PRN (Reason: abdominal pain) Qty: 180 3RF pantoprazole [Protonix] 40 mg tablet,delayed release (DR/EC) 40 mg PO DAILY Qty: 90 3RF Zyrtec 10 mg capsule 10 mg PO DAILY ibuprofen 800 mg tablet 800 mg PO Q8H PRN (Reason: pain) 7 Days Qty: 30 0RF buspirone 10 mg tablet 10 mg PO TID Qty: 90 2RF propranolol 20 mg tablet 20 mg PO BID Qty: 90 3RF Stand Alone Forms: ED Work / School Excuse Primary Care Provider: Grisel Solares Referrals: Grisel Solares MD [Primary Care Provider] - Carlton Douglas MD [Med Staff - Active Staff] - 3-5 Days Disposition Disposition: Home, Self Care
[2022-02-13] MEDS: Potassium Chloride Oral Tablet 20 MEQ 40 MEQ PO (14:50)
[2022-02-13] MEDS: 0.9% Normal Saline 1,000 ML 999 ML IV (14:53)
[2022-02-13 15:08] LABS: Troponin-I HS 8 pg/mL (3.0-54.0)
--- NOTE | 2022-02-13 17:24 | ED.RN ---
patient up for eval and c/o chest pressure - repeat ecg requested
[2022-02-13 17:26] VITALS: O2SAT 99
[2022-02-13 17:54] VITALS: BP 129/91; BP 134/98; BP 147/92; PULSE 54; PULSE 60; PULSE 64
[2022-02-13 18:28] VITALS: O2SAT 99
== END 2022-02-13 18:28 | disposition home or self-care (01) ==
PROVIDERS: Emergency Provider Emergency Medicine; PCP Internal Medicine; Visit Provider Emergency Medicine
DX: R00.1 Bradycardia, unspecified (principal); I10 Essential (primary) hypertension; R42 Dizziness and giddiness; G43.709 Chronic migraine without aura, not intractable, without status migrainosus; Z87.891 Personal history of nicotine dependence; Z79.899 Other long term (current) drug therapy
CPT/HCPCS: 80048; 84484; 85025; 93005; 96360; 96361; 99283; J7030; A4216

== ENCOUNTER → 2022-02-22 | Outpatient (CLI) | payer OTHER, SELFPAY | END | disposition home or self-care (01) | LOC: PSN 11:51 | PROVIDERS: PCP Internal Medicine; Referring Provider Internal Medicine Cardiovascular Disease; Visit Provider Internal Medicine Cardiovascular Disease | DX: R00.1 Bradycardia, unspecified (principal) | CPT/HCPCS: 93225; 93226 ==

== ENCOUNTER → 2022-02-27 | Outpatient (CLI) | payer OTHER, SELFPAY ==
[2022-02-27 10:55] LABS: Mucous, Urine 0 SEEN /hpf (<or=2+)
[2022-02-27 12:38] LABS: Color, Urine Yellow (Yellow); Glucose, Dipstick Normal (Normal); Ketone-Dipstick Negative (Negative); Leukocyte Esterase-Dipstick 25 /ul (Negative); Nitrite-Dipstick Negative (Negative); Occult Blood-Urine 50 /ul (Negative); Protein-Dipstick 15 mg/dl (Negative); Urine Bilirubin Dipstick Negative (Negative); Urine Clarity Sl. Cloudy (Clear); Urine Urobilinogen Normal (Normal)
[2022-02-27 12:50] LABS: Red Blood Cells-Urine 0-5 SEEN /hpf (0-5); Squamous Epithelial Cells - UA 5-10 SEEN /hpf (5-10); White Blood Cells 0-5 SEEN /hpf (0-5)
[2022-02-27 12:51] LABS: Bacteria 2+ /hpf (None Seen)
== END | disposition home or self-care (01) ==
LOC: LABSPEC 10:55
PROVIDERS: PCP Internal Medicine; Referring Provider Nurse Practitioner Family; Visit Provider Nurse Practitioner Family
DX: R39.9 Unspecified symptoms and signs involving the genitourinary system (principal)
CPT/HCPCS: 81001; 87077; 87086; 87088; 87186

== ENCOUNTER 2022-05-31 14:01 | Outpatient (CLI) | payer OTHER, SELFPAY ==
[2022-05-31 15:02] LABS: Estradiol 363.4 pg/mL; Thyroid Stim Hormone (TSH) 1.58 uIU/mL (0.358-3.74)
[2022-06-07 08:25] LABS: Testosterone, Free 0.24 ng/dL (0.10-0.85); Testosterone, Total 30 ng/dL (8-60)
== END 2022-05-31 23:59 | disposition home or self-care (01) ==
LOC: LAB 14:03
PROVIDERS: PCP Internal Medicine; Referring Provider Obstetrics & Gynecology; Visit Provider Obstetrics & Gynecology
DX: Z00.00 Encounter for general adult medical examination without abnormal findings (principal); L65.9 Nonscarring hair loss, unspecified
CPT/HCPCS: 36415; 82627; 82670; 84402; 84403; 84443; 82626

== ENCOUNTER 2022-06-07 22:13 | Emergency (ER) | payer OTHER, SELFPAY ==
[2022-06-07 22:14] VITALS: BP 142/103; PULSE 114; RESP 18; TEMP 37.1; O2SAT 99; BMI 41.3
[2022-06-07] MEDS: proCHLORPERazine 10 MG/2 ML Vial IV (23:16)
[2022-06-07] MEDS: Morphine 4 MG/ML Syringe IV (23:16)
[2022-06-07] MEDS: 0.9% Normal Saline 1,000 ML 999 ML IV (23:22)
[2022-06-07 23:35] LABS: AST(SGOT) 53 U/L (15-37); Alanine Aminotransfer ALT/SGPT 52 U/L (13-56); Albumin, Serum 3.6 g/dL (3.2-5.0); Alkaline Phosphatase 55 U/L (45-117); Anion Gap 5 (5-15); BUN 10 mg/dL (7-18); BUN/Creat Ratio 11.1 RATIO (10-20); Bilirubin, Direct 0.22 mg/dL (0.00-0.30); Calcium,Total 8.6 mg/dL (8.5-10.1); Chloride 109 mmol/L (98-107); EST Glomerular Filtration Rate 75 mL/min (>60); Est Glom Filt Rate - Afr Amer 90 mL/min (>60); Estimated Creatinine Clearance 77.01 ml/min; Globulin 3.4 g/dL (2.2-4.2); Glucose 103 mg/dL (74-106); Lipase 28 U/L (13-75); Magnesium 1.4 mg/dL (1.6-2.6); Potassium 3.3 mmol/L (3.5-5.1); Sodium Level 137 mmol/L (136-145)
[2022-06-08 00:17] LABS: Absolute Lymphocyte Count 0.59 X10^3/uL (0.83-4.51); Absolute Neutrophil Count 5.6 X10^3/uL (2.0-7.7); Basophil# 0.02 X10^3/uL; Basophil% 0.3 % (0-1); Eosinophil# 0.02 X10^3/uL; Eosinophils% 0.3 % (0-5); Hematocrit 36.4 % (37-47); Hemoglobin 12.3 g/dL (12.0-15.0); Lymphocyte # 0.59 X10^3/ul (0.83-4.51); Lymphocyte % 8.4 % (19-41); Mean Corp Hgb Conc 33.8 g/dL (32-36); Mean Corpuscular Hgb 30.7 pg (27.0-32.0); Mean Corpuscular Volume 90.8 fL (81-99); Mean Platelet Vol. 10.2 fl (6.2-12.0); NRBC Flagged by Analyzer 0 % (0-5); Neutrophil # 5.62 X10^3/uL (2.7-7.7); Neutrophil % 80.4 % (47-70); POSITIVE DIFFERENTIAL YES; Platelet Count 230 K/mm3 (150-450); RBC Distribution Width CV 12.8 % (11.6-14.6); Red Blood Count 4.01 M/mm3 (4.2-5.4)
[2022-06-08 00:18] LABS: Differential Indicated SCAN CRITERIA MET
[2022-06-08 00:25] LABS: Differential Comment SCANNED
[2022-06-08] MEDS: 0.9% Normal Saline 1,000 ML 999 ML IV (00:36)
--- NOTE | 2022-06-08 01:35 | ED.RN ---
Pt stating her is now feeling bad so they were leaving. IV D/c and pt left. dr ann notified.
--- NOTE | 2022-06-08 01:39 | EX.ED.DYSGE1 ---
HPI History of Present Illness Chief Complaint: Nausea/Vomiting/Diarrhea Informant: patient and spouse/S.O. Narrative Narrative: Patient is a 36-year-old female with history of IBS and previous cholecystectomy who states that she felt off throughout the day but then began with bouts of generalized abdominal pain vomiting and diarrhea. She states she has medication at home to help with both and took them without significant symptom improvement and with this presents for evaluation [facility] Medical History Abnormal EKG Acid reflux Alcohol use Bilateral carpal tunnel syndrome Bipolar 1 disorder Bradycardia Carpal tunnel syndrome Chest pain Chronic diarrhea Chronic headaches Chronic neck and back pain Environmental allergies Essential hypertension Former smoker Gastric reflux GI bleed H/O emotional problems H/O hemorrhoids History of eating disorder History of echocardiogram History of gallstones History of IBS History of irregular heartbeat History of stress test History of UTI Hx of vertigo Hypertension IBS (irritable bowel syndrome) Migraine headache Neuropathy Nonscarring hair loss Numbness and tingling in both hands Positive Tinel's sign Right ear impacted cerumen Screening for thyroid disorder Severe headache Tinnitus Tinnitus, right vision problem with headache Wears dentures Wears glasses Wears partial dentures Home Medications cetirizine 10 mg capsule (Zyrtec) 10 mg PO DAILY 02/15/20 [History Last Taken Unknown] cholecalciferol (vitamin D3) 125 mcg (5,000 unit) capsule 125 mcg PO .MWF 01/02/21 [History Last Taken Unknown] ibuprofen 800 mg tablet 800 mg PO Q8H PRN pain 7 days #30 tabs 03/13/21 [Rx Last Taken Unknown] dicyclomine 20 mg tablet 20 mg PO TID PRN abdominal pain #180 tabs 11/16/21 [Rx Last Taken Unknown] propranolol 20 mg tablet 20 mg PO BID BP #90 tabs 02/13/22 [Rx Last Taken Unknown] pantoprazole 40 mg tablet,delayed release (Protonix) 40 mg PO DAILY reflux #90 tabs 02/27/22 [Rx Last Taken Unknown] eletriptan 20 mg tablet (Relpax) See Rx Instructions .Route .COMPLEX #9 tabs 03/28/22 [Rx Last Taken Unknown] erenumab-aooe 140 mg/mL subcutaneous auto-injector (Aimovig Autoinjector) 140 mg subcut QMONTH migraines #1 mL 03/28/22 [Rx Last Taken Unknown] ondansetron HCl 4 mg tablet 4 mg PO TID PRN nausea and vomiting #90 tabs 03/28/22 [Rx Last Taken Unknown] tizanidine 4 mg tablet (Zanaflex) 8 mg PO QHS #60 tabs 03/28/22 [Rx Last Taken Unknown] ubrogepant 100 mg tablet (Ubrelvy) 100 mg PO .COMPLEX migraine headache #10 tabs 03/28/22 [Rx Last Taken Unknown] buspirone 30 mg tablet 30 mg PO BID 90 days #180 tabs 05/28/22 [Rx Last Taken Unknown] Allergy/AdvReac Type Severity Reaction Status Date / Time Penicillins Allergy Severe hives Verified 06/07/22 22:17 cefaclor [From [facility]] Allergy Intermediate Rash Verified 06/07/22 22:17 doxycycline Allergy Mild unknown Verified 06/07/22 22:17 Family History Mother Hypertension Arthritis Anemia Father Diabetes Anesthesia complication Brother Brain cancer Anxiety Sister Asthma Grandmother CVA (cerebral vascular accident) Daughter Anxiety Grandfather COPD (chronic obstructive pulmonary disease) CVA (cerebral vascular accident) Other Seizures Surgical History H/O dilation and curettage History of cholecystectomy History of hysterectomy History of right salpingo-oophorectomy History of salpingectomy History of tonsillectomy history of upper and lower scope Hx of colonoscopy Hx of esophagogastroduodenoscopy Social History (Updated 05/31/22 @ 13:25 by Anusha Noel) household members: spouse and children number of children: 3 current occupational status: employed current occupation: [employer] history of recent travel: No sexually active: Yes Smoking Status: Former smoker alcohol intake: never substance use type: does not use caffeine: No what type of physical activity do you participate in: running frequency: 3-4 times per week seatbelt use: always do you feel safe at home: Yes additional social history: - Donald BONILLA ROS ED Constitutional Constitutional ED: Denies chills or fever(s) ENT ENT ED: Denies sore throat Cardiovascular Cardiovascular: Denies chest pain Respiratory/Chest Respiratory/Chest: Denies cough or dyspnea Gastrointestinal Gastrointestinal: Reports abdominal pain, diarrhea, nausea and vomiting Genitourinary Genitourinary ED: Denies dysuria Musculoskeletal Musculoskeletal: Reports myalgias Integumentary Denies rash Neurologic Neurologic: Denies headache(s) Hematologic/Lymphatic Hematologic/Lymphatic: Denies easy bleeding or easy bruising EXAM Physical Exam Const Vital Signs: 06/07/22 22:14 Temperature 98.7 F Temperature Source Temporal Pulse Rate 114 H Respiratory Rate 18 Blood Pressure 142/103 H Blood Pressure Mean 116 Pulse Ox 99 Oxygen Delivery Method Room Air Positive well nourished, well developed and obese General Appearance ED: well developed Nutritional Appearance: obese HEENT Reports dry mucous membranes HEENT Narrative: Mucous membranes are dry and tacky without secondary changes to suggest infectious process. No airway edema or compromise Mouth ED: Yes dry mucous membranes Mouth: dry mucous membranes Eyes PERRL and EOMs intact bilaterally General Eye ED: Negative for scleral icterus Neck supple Resp normal respiratory effort and clear to auscultation bilaterally Cardio regular rate and regular rhythm Rate: other Other Details: Radial pulses are plus 2 out of 4 bilaterally are equal and symmetric GI non-distended GI Narrative: Abdomen is soft and nondistended with hyperactive bowel sounds. There is mild diffuse pain on palpation without voluntary guarding or rigidity no pulsatile mass or fluid wave noted Auscultation: hyperactive bowel sounds Palpation: soft Extremity normal to inspection Neuro oriented x3 and CN's II-XII intact bilaterally Sensorium / Orientation: alert Psych mental status grossly normal Skin no rashes or lesions noted Skin Narrative: Skin turgor is slightly increased General Skin Exam: Negative for jaundice MDM MDM MDM Narrative Medical decision making narrative: Patient presented to the ER with a soft nonsurgical abdomen and therefore I felt no need for emergent imaging studies. Differential includes viral gastroenteritis versus colitis or diverticulitis or electrolyte derangement causing DONIS secondary to dehydration. Patient blood work is obtained which showed normal white blood cell count as well as normal liver enzymes and lipase going against systemic infection process or pancreatitis. [place] potassium and magnesium are slightly down but these were not clinically significant. Patient was given 2 L of fluid and on reevaluation she has had improvement of symptoms and no longer had bouts of vomiting or diarrhea and is therefore safe for discharge History & Record Review Discussion w/independent historian: Patient and Significant other Lab Data Attestation: I reviewed the patient's lab results. Labs: Laboratory Results - last 24 hr 06/07/22 06/07/22 23:10 23:10 WBC 7.0 RBC 4.01 L Hgb 12.3 Hct 36.4 L MCV 90.8 MCH 30.7 MCHC 33.8 RDW Std Deviation 42.0 RDW Coeff of [place] 12.8 Plt Count 230 MPV 10.2 Immature Gran % (Auto) 0.600 Neut % (Auto) 80.4 H Lymph % (Auto) 8.4 L [place] % (Auto) 10.0 Eos % (Auto) 0.3 Baso % (Auto) 0.3 Absolute Neuts (auto) 5.6 Absolute Lymphs (auto) 0.59 L Nucleated RBC % 0 Differential Comment SCANNED Sodium 137 Potassium 3.3 L Chloride 109 H Carbon Dioxide 23.0 Anion Gap 5 BUN 10 Creatinine 0.90 Estim Creat Clear Calc 77.01 Est GFR (MDRD) Af Amer 90 Est GFR (MDRD) Non-Af 75 BUN/Creatinine Ratio 11.1 Glucose 103 Calcium 8.6 Magnesium 1.4 L Total Bilirubin 0.60 Direct Bilirubin 0.22 AST 53 H ALT 52 Alkaline Phosphatase 55 Total Protein 7.0 Albumin 3.6 Globulin 3.4 Lipase 28 Discharge Plan Triage Chief Complaint: Nausea/Vomiting/Diarrhea ED Provider: Cuco Edge Dx/Rx/DC Orders Clinical Impression: Nausea vomiting and diarrhea, Dehydration Instructions: ED Gastroenteritis, Viral (Adult), ED Dehydration (Adult) Prescriptions: No Action cholecalciferol (vitamin D3) 125 mcg (5,000 unit) capsule 125 mcg PO .MWF Label Comments: takes 3 times a week dicyclomine 20 mg tablet 20 mg PO TID PRN (Reason: abdominal pain) Qty: 180 3RF pantoprazole [Protonix] 40 mg tablet,delayed release (DR/EC) 40 mg PO DAILY Qty: 90 3RF eletriptan [Relpax] 20 mg tablet See Rx Instructions .ROUTE .COMPLEX Qty: 9 1RF Rx Instructions: Take 1 tablet PO every 2 hours as needed for headache up to 2 tablets per day Aimovig Autoinjector 140 mg/mL auto-injector 140 mg subcut QMONTH Qty: 1 9RF ondansetron HCl 4 mg tablet 4 mg PO TID PRN (Reason: nausea and vomiting) Qty: 90 8RF tizanidine [Zanaflex] 4 mg tablet 8 mg PO QHS Qty: 60 9RF Ubrelvy 100 mg tablet 100 mg PO .COMPLEX Qty: 10 9RF Rx Instructions: Take 1 tablet orally every 2 hours as needed for headache up to 2 tablets daily Zyrtec 10 mg capsule 10 mg PO DAILY ibuprofen 800 mg tablet 800 mg PO Q8H PRN (Reason: pain) 7 Days Qty: 30 0RF propranolol 20 mg tablet 20 mg PO BID Qty: 90 3RF buspirone 30 mg tablet 30 mg PO BID 90 Days Qty: 180 1RF Primary Care Provider: Grisel Solares Referrals: Grisel Solares MD [Primary Care Provider] - Disposition Disposition: Home, Self Care Discharge Date/Time: 06/08/22 01:44
== END 2022-06-08 01:44 | disposition home or self-care (01) ==
PROVIDERS: Emergency Provider Emergency Medicine; PCP Internal Medicine; Visit Provider Emergency Medicine
DX: R11.2 Nausea with vomiting, unspecified (principal); R19.7 Diarrhea, unspecified; E86.0 Dehydration; R10.84 Generalized abdominal pain; I10 Essential (primary) hypertension; Z90.49 Acquired absence of other specified parts of digestive tract; E66.9 Obesity, unspecified; Z87.891 Personal history of nicotine dependence
CPT/HCPCS: 80048; 80076; 83690; 83735; 85025; 96361; 96374; 96375; 99283; J7030; A4216

== ENCOUNTER → 2022-06-12 | Outpatient (CLI) | payer OTHER, SELFPAY ==
--- NOTE | 2022-06-12 08:17 | BI_ITS ---
MAMMOGRAPHY - BILATERAL SCREENING REASON FOR EXAM: Female, 36 years old. Routine annual screening examination. PERTINENT HISTORY: Grandmother with breast cancer. History of prior left breast biopsy. TECHNIQUE: Digital bilateral breast silvia (3D mammographic acquisition) in the CC and MLO projections. 2-D mediolateral oblique (MLO) and craniocaudad (CC) views of both breasts were obtained. CAD: Full Field Digital Mammography with Computer Added Detection was performed. COMPARISON: Comparison is made with prior examination dated September 06, 2021 and . FINDINGS: Breast Composition: The breasts are heterogeneously dense, which may obscure small masses. There are no dominant masses or suspicious calcifications. A tissue clip marker is seen in the upper slightly lateral aspect of the left breast. Stable small benign-appearing right axillary lymph nodes. No other significant abnormalities are identified. There has been no significant change since the prior study. BI/SCRN MAMM (CAD)W/SILVIA BILAT IMPRESSION: Stable bilateral screening mammogram. Yearly follow-up mammogram recommended. (A) ASSESSMENT CATEGORY: BIRADS Category 2: Benign. A letter regarding these results will be sent to the patient by the facility within 30 days. Approximately 10% of breast cancers are not detected by mammography. A normal mammogram should not delay biopsy of a clinically suspicious abnormality. [id number] Electronically Signed: Paramjit Kumari MD at 9:15 EDT ,
== END | disposition home or self-care (01) ==
LOC: OPBI 08:16
PROVIDERS: PCP Internal Medicine; Referring Provider Obstetrics & Gynecology; Visit Provider Obstetrics & Gynecology
DX: Z12.31 Encounter for screening mammogram for malignant neoplasm of breast (principal)
CPT/HCPCS: 77063; 77067

== ENCOUNTER → 2022-08-07 | Outpatient (CLI) | payer OTHER, SELFPAY ==
[2022-08-07 12:48] LABS: Absolute Lymphocyte Count 2.01 X10^3/uL (0.83-4.51); Absolute Neutrophil Count 4.3 X10^3/uL (2.0-7.7); Basophil# 0.04 X10^3/uL; Basophil% 0.6 % (0-1); Eosinophil# 0.14 X10^3/uL; Hematocrit 38.3 % (37-47); Hemoglobin 12.4 g/dL (12.0-15.0); Lymphocyte # 2.01 X10^3/ul (0.83-4.51); Lymphocyte % 28.5 % (19-41); Mean Corp Hgb Conc 32.4 g/dL (32-36); Mean Corpuscular Hgb 30.2 pg (27.0-32.0); Mean Corpuscular Volume 93.4 fL (81-99); Mean Platelet Vol. 10.6 fl (6.2-12.0); Monocyte# 0.53 X10^3/uL; Monocyte% 7.5 % (0-10); NRBC Flagged by Analyzer 0 % (0-5); Neutrophil # 4.32 X10^3/uL (2.7-7.7); Neutrophil % 61.1 % (47-70); Platelet Count 324 K/mm3 (150-450); RBC Distribution Width CV 12.8 % (11.6-14.6); White Blood Count 7.1 K/mm3 (4.4-11.0)
[2022-08-07 13:36] LABS: ALB/GLOB Ratio 1.1 RATIO (0.9-2.4); AST(SGOT) 21 U/L (15-37); Alanine Aminotransfer ALT/SGPT 30 U/L (13-56); Albumin, Serum 3.8 g/dL (3.2-5.0); Alkaline Phosphatase 49 U/L (45-117); Anion Gap 5 (5-15); BUN 11 mg/dL (7-18); Calcium,Total 9.2 mg/dL (8.5-10.1); Chloride 109 mmol/L (98-107); Cholesterol 227 mg/dL (200); Creatinine, Serum 0.91 mg/dL (0.55-1.02); EST Glomerular Filtration Rate 73 mL/min (>60); Est Glom Filt Rate - Afr Amer 89 mL/min (>60); Globulin 3.6 g/dL (2.2-4.2); Glucose 96 mg/dL (74-106); High Density Lipoprotein 57 mg/dL; Potassium 4.2 mmol/L (3.5-5.1); Protein, Total 7.4 g/dL (6.4-8.2); Sodium Level 139 mmol/L (136-145); Thyroid Stim Hormone (TSH) 1.83 uIU/mL (0.358-3.74); Triglycerides 142 mg/dL; Very Low Density Lipoprotein 28 mg/dL (5-40)
[2022-08-07 14:09] LABS: Vitamin B12 279 pg/mL (211-911); Vitamin D,25 Hydroxy 53.2 ng/mL
== END | disposition home or self-care (01) ==
LOC: BIMLAB 10:48
PROVIDERS: PCP Internal Medicine; Referring Provider Nurse Practitioner Family; Visit Provider Nurse Practitioner Family
DX: I10 Essential (primary) hypertension (principal); F41.1 Generalized anxiety disorder; E56.9 Vitamin deficiency, unspecified
CPT/HCPCS: 36415; 80053; 80061; 82306; 82607; 84443; 85025

== ENCOUNTER 2022-09-29 21:10 | Emergency (ER) | payer OTHER, SELFPAY ==
[2022-09-29 21:11] VITALS: BP 155/71; PULSE 53; RESP 17; TEMP 36; O2SAT 100; BMI 42.5
--- NOTE | 2022-09-29 21:36 | EX.ED.DYSGE1 ---
HPI History of Present Illness Chief Complaint: Ear Problem Informant: patient Onset/Context/Timing Onset: Days (3) Context: Gradual Onset Timing: Continuous Quality: Aching, shooting at times Location: Left ear and left face Worsened by: Opening jaw and chewing Relieved by: Nothing Narrative Narrative: Patient presents with pain in her left ear and left face that has been getting worse over the last 3 days. Patient states she has a history of frequent otitis externa infections. Patient states she has antibiotic drops at home which she starts whenever this flares up. Patient states she has been taking her Cortisporin otic drops with minimal relief. Patient describes her pain as aching and shooting at times. Patient states it is over the left ear and left side of her face. Patient states it is worse with opening her jaw and chewing. Patient states nothing makes it better. Patient denies any fevers or chills. Patient denies any sore throat. [facility] Medical History Abnormal EKG Acid reflux Alcohol use Bilateral carpal tunnel syndrome Bipolar 1 disorder Bradycardia Carpal tunnel syndrome Chest pain Chronic diarrhea Chronic headaches Chronic neck and back pain Environmental allergies Essential hypertension Former smoker Gastric reflux Generalized anxiety disorder GI bleed H/O emotional problems H/O hemorrhoids History of eating disorder History of echocardiogram History of gallstones History of IBS History of irregular heartbeat History of stress test History of UTI Hx of vertigo Hypertension IBS (irritable bowel syndrome) Migraine headache Neuropathy Nonscarring hair loss Numbness and tingling in both hands Positive Tinel's sign Right ear impacted cerumen Screening for thyroid disorder Severe headache Tinnitus Tinnitus, right vision problem with headache Vitamin deficiency Wears dentures Wears glasses Wears partial dentures Home Medications cetirizine 10 mg capsule (Zyrtec) 10 mg PO DAILY 02/15/20 [History Last Taken Unknown] ibuprofen 800 mg tablet 800 mg PO Q8H PRN pain 7 days #30 tabs 03/13/21 [Rx Last Taken Unknown] dicyclomine 20 mg tablet 20 mg PO TID PRN abdominal pain #180 tabs 11/16/21 [Rx Last Taken Unknown] propranolol 20 mg tablet 20 mg PO BID BP #90 tabs 02/13/22 [Rx Last Taken Unknown] pantoprazole 40 mg tablet,delayed release (Protonix) 40 mg PO DAILY reflux #90 tabs 02/27/22 [Rx Last Taken Unknown] eletriptan 20 mg tablet (Relpax) See Rx Instructions .Route .COMPLEX #9 tabs 03/28/22 [Rx Last Taken Unknown] erenumab-aooe 140 mg/mL subcutaneous auto-injector (Aimovig Autoinjector) 140 mg subcut QMONTH migraines #1 mL 03/28/22 [Rx Last Taken Unknown] ondansetron HCl 4 mg tablet 4 mg PO TID PRN nausea and vomiting #90 tabs 03/28/22 [Rx Last Taken Unknown] tizanidine 4 mg tablet (Zanaflex) 8 mg (2 x 4 mg) PO QHS #60 tabs 03/28/22 [Rx Last Taken Unknown] ubrogepant 100 mg tablet (Ubrelvy) 100 mg PO .COMPLEX migraine headache #10 tabs 03/28/22 [Rx Last Taken Unknown] buspirone 30 mg tablet 30 mg PO BID 90 days #180 tabs 05/28/22 [Rx Last Taken Unknown] azithromycin 250 mg tablet 250 mg PO DAILY #4 TABLETS 09/29/22 [Rx Last Taken Unknown] ciprofloxacin 0.2 %-hydrocortisone 1 % ear drops,suspension (Cipro HC) 3 drp LEFT EAR BID 7 days #10 mL 09/29/22 [Rx Last Taken Unknown] hydrocodone-acetaminophen 5-325mg 5mg-325mg 1 tab PO Q6H PRN PRN Pain 3 days #10 TABLETS 09/29/22 [Rx Last Taken Unknown] Allergy/AdvReac Type Severity Reaction Status Date / Time Penicillins Allergy Severe hives Verified 09/29/22 21:13 cefaclor [From [facility]] Allergy Intermediate Rash Verified 09/29/22 21:13 doxycycline Allergy Mild unknown Verified 09/29/22 21:13 Family History Mother Hypertension Arthritis Anemia Father Diabetes Anesthesia complication Brother Brain cancer Anxiety Sister Asthma Grandmother CVA (cerebral vascular accident) Daughter Anxiety Grandfather COPD (chronic obstructive pulmonary disease) CVA (cerebral vascular accident) Other Seizures Surgical History H/O dilation and curettage History of cholecystectomy History of hysterectomy History of right salpingo-oophorectomy History of salpingectomy History of tonsillectomy history of upper and lower scope Hx of colonoscopy Hx of esophagogastroduodenoscopy Social History household members: spouse and children number of children: 3 current occupational status: employed current occupation: [employer] history of recent travel: No sexually active: Yes Smoking Status: Former smoker alcohol intake: never substance use type: does not use caffeine: No what type of physical activity do you participate in: running frequency: 3-4 times per week seatbelt use: always do you feel safe at home: Yes additional social history: - Donald BONILLA ROS ED Constitutional Constitutional ED: Denies chills or fever(s) Eyes Eyes: Denies blurry vision or change in vision ENT ENT ED: Reports ear pain left; Denies rhinorrhea or sore throat Cardiovascular Cardiovascular: Denies chest pain or palpitations Respiratory/Chest Respiratory/Chest: Denies cough or dyspnea Gastrointestinal Gastrointestinal: Denies nausea or vomiting Genitourinary Genitourinary ED: Denies dysuria or hematuria Musculoskeletal Musculoskeletal: Denies back pain or neck pain Integumentary Denies abscess or rash Neurologic Neurologic: Reports headache(s); Denies weakness Allergic/Immunologic Allergic/Immunologic ED: Denies mouth swelling or urticaria EXAM Physical Exam Const Vital Signs: 09/29/22 21:11 Temperature 96.8 F L Temperature Source Temporal Pulse Rate 53 L Respiratory Rate 17 Blood Pressure 155/71 H Blood Pressure Mean 99 Pulse Ox 100 Oxygen Delivery Method Room Air Positive well nourished, well developed and obese General Appearance ED: well developed and NAD Nutritional Appearance: obese HEENT Reports moist mucous membranes HEENT Narrative: The left external auditory canal is edematous and erythematous. The left tympanic membrane was not visualized due to the edema of the ear canal. There is pain with manipulation of the external ear. The right external auditory canal and tympanic membrane are clear. Neck is supple. Trachea is midline. There is no JVD or lymphadenopathy. Oral mucosa is pink and moist. Oropharynx is clear. Airway is patent. Patient is able to open her jaw fully. Eyes PERRL and EOMs intact bilaterally Neck no lymphadenopathy, supple and no JVD Neuro oriented x3, CN's II-XII intact bilaterally and no sensory deficits noted Sensorium / Orientation: alert Motor Exam: strength 5/5 throughout Psych mental status grossly normal Skin no rashes or lesions noted MDM MDM MDM Narrative Medical decision making narrative: Patient was advised that this is otitis externa. Patient was given prescription for Cipro HC otic solution. Patient was instructed to stop the Cortisporin solution. Patient was also given a dose of Zithromax here and a prescription for Zithromax. Patient was given a dose of [place] here and a prescription for a short course of [place]. Patient was instructed to follow-up with her primary care physician in 3 to 5 days for reevaluation. Patient was also instructed to follow-up with her ENT surgeon in 3 to 5 days. Patient understood and was agreeable with the plan. All questions were answered. Discharge Plan Triage Chief Complaint: Ear Problem ED Provider: Vince Amos Dx/Rx/DC Orders Clinical Impression: Acute otitis externa of left ear, Morbid obesity with BMI of 40.0-44.9, adult Instructions: ED External Ear Infection (Adult) Prescriptions: New azithromycin [azithromycin] 250 mg tablet 250 mg PO DAILY Qty: 4 0RF Cipro HC 0.2-1 % drops,suspension 3 drp LEFT EAR BID 7 Days Qty: 10 0RF hydrocodone-acetaminophen [hydrocodone-acetaminophen] 5-325 mg tablet 1 tab PO Q6H PRN PRN (Reason: Pain) 3 Days Qty: 10 0RF No Action dicyclomine 20 mg tablet 20 mg PO TID PRN (Reason: abdominal pain) Qty: 180 3RF pantoprazole [Protonix] 40 mg tablet,delayed release (DR/EC) 40 mg PO DAILY Qty: 90 3RF eletriptan [Relpax] 20 mg tablet See Rx Instructions .ROUTE .COMPLEX Qty: 9 1RF Rx Instructions: Take 1 tablet PO every 2 hours as needed for headache up to 2 tablets per day Aimovig Autoinjector 140 mg/mL auto-injector 140 mg subcut QMONTH Qty: 1 9RF ondansetron HCl 4 mg tablet 4 mg PO TID PRN (Reason: nausea and vomiting) Qty: 90 8RF tizanidine [Zanaflex] 4 mg tablet 8 mg PO QHS Qty: 60 9RF Ubrelvy 100 mg tablet 100 mg PO .COMPLEX Qty: 10 9RF Rx Instructions: Take 1 tablet orally every 2 hours as needed for headache up to 2 tablets daily Zyrtec 10 mg capsule 10 mg PO DAILY ibuprofen 800 mg tablet 800 mg PO Q8H PRN (Reason: pain) 7 Days Qty: 30 0RF propranolol 20 mg tablet 20 mg PO BID Qty: 90 3RF buspirone 30 mg tablet 30 mg PO BID 90 Days Qty: 180 1RF Primary Care Provider: Grisel Solares Referrals: Grisel oSlares MD [Primary Care Provider] - 3-5 Days Disposition Disposition: Home, Self Care
[2022-09-29] MEDS: HYDROcodone Bitartrate/Apap 5/325 Tablet PO (21:43)
[2022-09-29] MEDS: Azithromycin 250 MG Tablet 500 MG PO (21:45)
== END 2022-09-29 22:03 | disposition home or self-care (01) ==
LOC: ED 21:42
PROVIDERS: Emergency Provider Emergency Medicine; PCP Internal Medicine; Visit Provider Emergency Medicine
DX: H60.92 Unspecified otitis externa, left ear (principal); E66.01 Morbid (severe) obesity due to excess calories; Z68.41 Body mass index [BMI] 40.0-44.9, adult; I10 Essential (primary) hypertension; Z87.891 Personal history of nicotine dependence
CPT/HCPCS: 99283

== ENCOUNTER → 2022-11-07 | Outpatient (CLI) | payer OTHER, SELFPAY ==
[2022-11-07 08:30] LABS: Follicle Stimulating Hormone 1.4 mIU/mL; Luteinizing Hormone 2.3 mIU/mL; Thyroid Stim Hormone (TSH) 5.12 uIU/mL (0.358-3.74)
== END | disposition home or self-care (01) ==
LOC: LAB 06:42
PROVIDERS: PCP Nurse Practitioner Family; Referring Provider Obstetrics & Gynecology; Visit Provider Obstetrics & Gynecology
DX: Z13.29 Encounter for screening for other suspected endocrine disorder (principal); F41.1 Generalized anxiety disorder; L65.9 Nonscarring hair loss, unspecified; G43.009 Migraine without aura, not intractable, without status migrainosus; Z86.59 Personal history of other mental and behavioral disorders
CPT/HCPCS: 36415; 82670; 83001; 83002; 84443

== ENCOUNTER → 2022-11-08 | Outpatient (CLI) | payer OTHER, SELFPAY ==
[2022-11-08 14:02] LABS: Ferritin 168 ng/mL (8-252); Iron 120 ug/dL (50-170); Iron Binding Capacity,Total 390 ug/dL (250-450); PERCENT IRON SATURATION 30.8 % (15.0-55.0); T4 Free Direct 0.77 ng/dL (0.76-1.46); Vitamin B12 480 pg/mL (211-911)
[2022-11-11 15:07] LABS: Thyroglobulin Antibody < 1.0 IU/mL (0.0-0.9); Thyroid Peroxidase AB < 9 IU/mL (0-34)
== END | disposition home or self-care (01) ==
LOC: LAB 11:59
PROVIDERS: Referring Provider Nurse Practitioner Family; Visit Provider Nurse Practitioner Family
DX: E03.9 Hypothyroidism, unspecified (principal)
CPT/HCPCS: 36415; 82607; 82728; 83540; 83550; 84439; 86376; 86800

== ENCOUNTER → 2022-11-12 | Outpatient (CLI) | payer OTHER, SELFPAY | END | disposition home or self-care (01) | LOC: LABSPEC 12:28 | PROVIDERS: Referring Provider Nurse Practitioner Family; Visit Provider Nurse Practitioner Family | DX: D64.9 Anemia, unspecified (principal) | CPT/HCPCS: 82274 ==

== ENCOUNTER → 2022-11-13 | Outpatient (CLI) | payer OTHER, SELFPAY | END | disposition home or self-care (01) | LOC: LAB 13:25 → LABSPEC 13:27 | DX: D64.9 Anemia, unspecified (principal) | CPT/HCPCS: 82274 ==

== ENCOUNTER → 2022-11-14 | Outpatient (CLI) | payer OTHER, SELFPAY | END | disposition home or self-care (01) | LOC: LAB 10:13 | PROVIDERS: Referring Provider Nurse Practitioner Family; Visit Provider Nurse Practitioner Family | DX: D64.9 Anemia, unspecified (principal) | CPT/HCPCS: 82274 ==

== ENCOUNTER → 2022-11-25 | Outpatient (CLI) | payer OTHER, SELFPAY ==
[2022-11-25 12:56] LABS: Ferritin 153 ng/mL (8-252); Iron 66 ug/dL (50-170); Iron Binding Capacity,Total 356 ug/dL (250-450); PERCENT IRON SATURATION 18.5 % (15.0-55.0); T4 Free Direct 0.88 ng/dL (0.76-1.46); Thyroid Stim Hormone (TSH) 2.51 uIU/mL (0.358-3.74)
== END | disposition home or self-care (01) ==
LOC: MTLAB 11:00
PROVIDERS: Referring Provider Nurse Practitioner Family; Visit Provider Nurse Practitioner Family
DX: D64.9 Anemia, unspecified (principal); E03.9 Hypothyroidism, unspecified
CPT/HCPCS: 36415; 82728; 83540; 83550; 84439; 84443

== ENCOUNTER 2022-12-18 07:08 | Day surgery (SDC) | payer OTHER, SELFPAY ==
[2022-12-18] VITALS (9 sets, daily range): BP systolic 94–118; BP diastolic 59–96; PULSE 46–68; RESP 16; TEMP 36.2–36.4; O2SAT 94–100; BMI 42.5
[2022-12-18] MEDS: Lactated Ringers 1,000 ML 15 ML IV (07:33)
--- NOTE | 2022-12-18 08:05 | PCM.HP.STD ---
HPI - General HPI Narrative DOMINIK JOSEPH, is a 37 F who presents for right endoscopic carpal tunnel release. no changes to h and p. Patient ok to proceed, questions, rab. Wrist marked. MR#: [id number] Acct: [id number] Name: DOMINIK JOSEPH Rep #: [id number] : 1985 Provider: Dr. Ashkan Ortiz MD Age/Sex: 37/F Location: [facility] Status: Signed Intake Vital Signs 11/25/2310:30 Height 5 ft 5 in Weight: 251 lb 6 oz BMI 41.8 BP 112/82 H Blood Pressure Location Lt brachial Position Sitting Respiration 17 Pulse 72 Pulse Source Monitor Temp 98.2 F Temp Source Temporal Pulse Oximetry (%) 97 Oxygen Delivery Method room air Intake Visit Reasons: right wrist Chief Complaint: Right wrist Accompanied by: Self Is patient in pain?: Yes Pain scale (1-10): 8 Allergies Penicillins Adverse Reaction (Severe, Verified 12/06/22 09:10) hives cefaclor [From Ceclor] Adverse Reaction (Intermediate, Verified 12/06/22 09:10) Hivesdoxycycline Adverse Reaction (Intermediate, Verified 12/06/22 09:10) Diarrhea Medications cetirizine 10 mg capsule (Zyrtec) 10 mg PO DAILY 02/15/20 [History Confirmed 12/06/22] ibuprofen 800 mg tablet 800 mg PO Q8H PRN pain 7 days #30 tabs 03/13/21 [Rx Confirmed 12/06/22] dicyclomine 20 mg tablet 20 mg PO TID PRN abdominal pain #180 tabs 11/16/21 [Rx Confirmed 12/06/22] propranolol 20 mg tablet 20 mg PO BID BP #90 tabs 02/13/22 [Rx Confirmed 12/06/22] pantoprazole 40 mg tablet,delayed release (Protonix) 40 mg PO DAILY reflux #90 tabs 02/27/22 [Rx Confirmed 12/06/22] buspirone 30 mg tablet 30 mg PO BID 90 days #180 tabs 05/28/22 [Rx Confirmed 12/06/22] Ubrelvy 100 mg tablet (ubrogepant) 100 mg PO .COMPLEX migraine headache #10 tabs 11/25/22 [Rx Confirmed 12/06/22] cariprazine 1.5 mg capsule (Vraylar) 1.5 mg PO QODAY 11/25/22 [History Confirmed 12/06/22] eletriptan 20 mg tablet (Relpax) See Rx Instructions .Route .COMPLEX #9 tabs 11/25/22 [Rx Confirmed 12/06/22] erenumab-aooe 140 mg/mL subcutaneous auto-injector (Aimovig Autoinjector) 140 mg subcut QMONTH migraines #1 mL 11/25/22 [Rx Confirmed 12/06/22] ondansetron HCl 4 mg tablet 4 mg PO TID PRN nausea and vomiting #90 tabs 11/25/22 [Rx Confirmed 12/06/22] tizanidine 4 mg tablet (Zanaflex) 8 mg (2 x 4 mg) PO QHS #60 tabs 11/25/22 [Rx Confirmed 12/06/22] cyanocobalamin (vitamin B-12) 100 mcg tablet (Vitamin B-12) 100 mcg PO DAILY 12/06/22 [History Confirmed 12/06/22] PFSH Medical History Abnormal EKG Acid reflux Alcohol use Bilateral carpal tunnel syndrome Bipolar 1 disorder Bradycardia Carpal tunnel syndrome Chest pain Chronic diarrhea Chronic headaches Chronic neck and back pain Environmental allergies Essential hypertension Former smoker Gastric reflux Generalized anxiety disorder GI bleed H/O emotional problems H/O hemorrhoids History of eating disorder History of echocardiogram History of gallstones History of Holter monitoring History of IBS History of irregular heartbeat History of stress test History of UTI Hx of vertigo Hypertension IBS (irritable bowel syndrome) Migraine headache Neuropathy Nonscarring hair loss Numbness and tingling in both hands Positive Tinel's sign Right ear impacted cerumen Screening for thyroid disorder Severe headache Tinnitus Tinnitus, right vision problem with headache Vitamin deficiency Wears dentures Wears glasses Wears partial dentures Surgical History H/O dilation and curettage History of cholecystectomy History of hysterectomy History of right salpingo-oophorectomy History of salpingectomy History of tonsillectomy history of upper and lower scope Hx of colonoscopy Hx of esophagogastroduodenoscopy Family History Mother Hypertension Arthritis AnemiaFather Diabetes Anesthesia complicationBrother Brain cancer AnxietySister AsthmaGrandmother CVA (cerebral vascular accident)Daughter AnxietyGrandfather COPD (chronic obstructive pulmonary disease) CVA (cerebral vascular accident)Other Seizures Social History household members: spouse and children number of children: 3 current occupational status: employed current occupation: [employer] history of recent travel: No sexually active: Yes Smoking Status: Former smoker alcohol intake: never substance use type: does not use caffeine: No what type of physical activity do you participate in: running frequency: 3-4 times per week seatbelt use: always do you feel safe at home: Yes additional social history: - Donald LONG right wrist Details: Parts of this documentation were recorded by a scribe, this documentation accurately reflects the service provided and the decisions made by me, Dr. Ashkan Ortiz MD 12/06/22 0973. DOMINIK JOSEPH is a 37 year old F here today for FU bilat CTS. Worse on the right. RHD. Some tingling worse at work. Ortho Exam General General: Yes no acute distress Neurologic: Yes alert and Yes oriented x3 Psychologic: Yes reasonable and appropriate Right Wrist/Hand Skin/Wound: Yes CDI, No Swelling, No Ecchymosis and Yes capillary refill normal Right Wrist: Yes ROM-Extension 0-60, ROM-Flexion 0-80, ROM-Pronation 0-80, ROM-Supination 0-90, Tinel's and Phalen's Motor: EPL: 5, FDP-2: 5, 1st Dorsal Interosseous: 5 and APB: 4 Sensation: Radial: I, Ulnar: I and Median: D Left Wrist/Hand Skin/Wound: No Swelling and No Ecchymosis Supplemental Info This is an abnormal study. 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 Findings are electrically mild on the right and borderline on the left. The pathophysiology is demyelinating and compatible with the clinical diagnosis of carpal tunnel syndrome. In addition, there is no electrophysiologic evidence of superimposed cervical radiculopathy in the right upper extremity. Coding Level of Care Code Off vis,est,level 3 Diagnoses Carpal tunnel syndrome, right G56.01 Assessment and Plan Assessment and Plan (1) Carpal tunnel syndrome, right: Status: Acute Plan: 37-year-old female right carpal tunnel syndrome. Patient had a prior discussion with risks and benefits pros and cons of nonoperative versus surgical management of this problem. Again discussed these. They wish to go ahead with right endoscopic carpal tunnel release. We discussed the recovery associated with this 2 weeks to remove the sutures 6 weeks of avoiding heavy lifting and gripping with the hand. They understand no further questions and wished to go ahead with right endoscopic carpal tunnel release. Pros and cons risks and benefits were discussed with the patient including but not limited to infection, pain, stiffness, bleeding, damage to surrounding structures, neurovascular injury, recurrence or retear, failure or wear of hardware or fixation, instability, fracture, deep vein thrombosis and pulmonary embolism, anesthetic risks, , patient dissatisfaction, need for further surgery and other risks. Patient understood and wished to proceed with surgery, and signed the informed consent documentation. [facility] Medical History Abnormal EKG Acid reflux Alcohol use Bilateral carpal tunnel syndrome Bipolar 1 disorder Bradycardia Carpal tunnel syndrome Chest pain Chronic diarrhea Chronic headaches Chronic neck and back pain Environmental allergies Essential hypertension Former smoker Gastric reflux Generalized anxiety disorder GI bleed H/O emotional problems H/O hemorrhoids History of eating disorder History of echocardiogram History of gallstones History of Holter monitoring History of IBS History of irregular heartbeat History of stress test History of UTI Hx of vertigo Hypertension IBS (irritable bowel syndrome) Migraine headache Neuropathy Nonscarring hair loss Numbness and tingling in both hands Positive Tinel's sign Right ear impacted cerumen Screening for thyroid disorder Severe headache Tinnitus Tinnitus, right vision problem with headache Vitamin deficiency Wears dentures Wears glasses Wears partial dentures Home Medications cetirizine 10 mg capsule (Zyrtec) 10 mg PO DAILY 02/15/20 [History Last Taken Unknown] ibuprofen 800 mg tablet 800 mg PO Q8H PRN pain 7 days #30 tabs 03/13/21 [Rx Last Taken Unknown] dicyclomine 20 mg tablet 20 mg PO TID PRN abdominal pain #180 tabs 11/16/21 [Rx Last Taken Unknown] propranolol 20 mg tablet 20 mg PO BID BP #90 tabs 12/28/22 [Rx Last Taken 12/18/22] pantoprazole 40 mg tablet,delayed release (Protonix) 40 mg PO DAILY reflux #90 tabs 02/27/22 [Rx Last Taken 12/18/22] buspirone 30 mg tablet 30 mg PO BID 90 days #180 tabs 05/28/22 [Rx Last Taken Unknown] Ubrelvy 100 mg tablet (ubrogepant) 100 mg PO .COMPLEX migraine headache #10 tabs 11/25/22 [Rx Last Taken Unknown] cariprazine 1.5 mg capsule (Vraylar) 1.5 mg PO QODAY 11/25/22 [History Last Taken Unknown] eletriptan 20 mg tablet (Relpax) See Rx Instructions .Route .COMPLEX #9 tabs 11/25/22 [Rx Last Taken Unknown] erenumab-aooe 140 mg/mL subcutaneous auto-injector (Aimovig Autoinjector) 140 mg subcut QMONTH migraines #1 mL 11/25/22 [Rx Last Taken Unknown] ondansetron HCl 4 mg tablet 4 mg PO TID PRN nausea and vomiting #90 tabs 11/25/22 [Rx Last Taken Unknown] tizanidine 4 mg tablet (Zanaflex) 8 mg (2 x 4 mg) PO QHS #60 tabs 11/25/22 [Rx Last Taken Unknown] cyanocobalamin (vitamin B-12) 100 mcg tablet (Vitamin B-12) 100 mcg PO DAILY 12/06/22 [History Last Taken Unknown] Allergy/AdvReac Type Severity Reaction Status Date / Time Penicillins AdvReac Severe hives Verified 12/06/22 09:10 cefaclor [From [facility]] AdvReac Intermediate Hives Verified 12/06/22 09:10 doxycycline AdvReac Intermediate Diarrhea Verified 12/06/22 09:10 Family History Mother Hypertension Arthritis Anemia Father Diabetes Anesthesia complication Brother Brain cancer Anxiety Sister Asthma Grandmother CVA (cerebral vascular accident) Daughter Anxiety Grandfather COPD (chronic obstructive pulmonary disease) CVA (cerebral vascular accident) Other Seizures Surgical History H/O dilation and curettage History of cholecystectomy History of hysterectomy History of right salpingo-oophorectomy History of salpingectomy History of tonsillectomy history of upper and lower scope Hx of colonoscopy Hx of esophagogastroduodenoscopy Social History household members: spouse and children number of children: 3 current occupational status: employed current occupation: [employer] history of recent travel: No sexually active: Yes Smoking Status: Former smoker alcohol intake: never substance use type: does not use caffeine: No what type of physical activity do you participate in: running frequency: 3-4 times per week seatbelt use: always do you feel safe at home: Yes additional social history: - Donald Vital Signs Vital Signs Vital Signs: 12/18/22 07:26 12/18/22 07:28 Temperature 97.6 F L Temperature Source Temporal Pulse Rate 56 L Respiratory Rate 16 Respiratory Pattern Normal Blood Pressure 110/59 L Blood Pressure Mean 76 Blood Pressure Source Monitor Blood Pressure Position Semi-Fowlers Blood Pressure Location Right Arm Pulse Ox 100 Oxygen Delivery Method Room Air Weight Weight: 255 lb 11.779 oz Body Mass Index (BMI) 42.5
[2022-12-18] MEDS: Clindamycin 900 MG/50 ML BAG 75 MG IV (08:43)
[2022-12-18] MEDS: Bupivacaine 0.25% 30 ML Vial (08:51)
--- NOTE | 2022-12-18 09:05 | OP.PCM_ITS ---
Problems Associated Problem List Diagnoses (1) Carpal tunnel syndrome, right: Report of Operation Date of Procedure: 12/18/22 Pre-Operative Diagnosis: right carpal tunnel syndrome Post-Operative Diagnosis: same Surgery/Procedure Performed:: right endoscopic carpal tunnel release Surgeon: Ashkan Ortiz Type of Anesthesia: MAC/Supplemental/Local Anesthesiologist: Fei Anaya Estimated Blood Loss (mL): 15 Description of Procedure: Patient was brought to the operating room theater.? The patient was administered 900mg iv clindamycine (pen allergy) prior to the start of the procedure.? Placed supine on the operating room table.? Anesthesia induced.? SCDs on the legs.? Tourniquet applied to the right upper operative extremity, appropriately padded. Arm table used. Operative extremity prepped and draped in the usual sterile fashion with chlorhexidine-based prep solution allowing over 3 minutes drying time prior to draping.? Preoperative timeout performed to confirm the site patient and the surgery. I used the Arthex center line endoscopic (lakshmi scope) carpal tunnel kit / technique. 6cc 0.25% bupivicaine at incision site. ? I made a transverse 2 cm incision in line with the? transverse wrist crease.? This was in line with the fourth digit.? I carried the dissection down through skin and subcutaneous tissue achieved meticulous hemostasis. Just ulnar to palmaris tendon.? I incised the antebrachial fascia.? I passed sequential dilators into the carpal tunnel along the radial border of the Guyon's canal aiming for the fourth digit with the hand in extension. I used a synovial elevator to identify the transverse fibers of the transverse carpal tunnel ligament.? Passed the scope into the carpal tunnel. Once I had identified the full proximal and distal extent of the ligament I fully released the ligament under direct visualization by deploying the blade and slowly withdrawing the scope made sequential passes until I no longer felt tension as well as the entire extent of the ligament was released under direct visualization.? Sounded the tunnel with nilson tenotomy scisso rs, complete release, no bands. Arthroscope light was more visible through the skin. Pictures taken and saved before and after release. Wound thoroughly irrigated.? Meticulous hemostasis achieved.? Thorough irrigation.? ? Incisions closed with 3-0 nylon for the skin.?Skin was cleaned and dried. adaptic 4x4 gauze and abebe. Patient woken up,? transferred off the operating room table and taken to postanesthetic care unit in stable condition. All sponge needle instrument counts were correct no complications.? Plan for the patient to be discharged home according to day surgery criteria when they are comfortable. Follow-up in the office in 2 days time. Gentle ROM hand and elbow no heavy lifting. cpt [id number] Complications none Admit VTE Documentation VTE Present on Admission: No VTE Mechan Device Prophylaxis: SCD's VTE Pharm Prophylaxis ordered?: No Reason prophylaxis not ordered:: Treatment Not Indicated Procedures Musculoskeletal 20xxx-29xxx: 17375 WRIST ENDOSCOPY/SURGERY
--- NOTE | 2022-12-18 09:07 | DCINST_ITS ---
Discharge Instructions Diet Discharge Diet: No restrictions Activity Lifting Restrictions: no heavy lifting or gripping Keep extremity elevated above heart level: Operative Extremity Dressing / Incision Call your doctor if your incision/area has: Continuous Slow Oozing, Sudden Increased Bleeding, Increased Pain/ Swelling, Increased Redness, Foul Smelling Discharge and Swelling at the incision site Change Dressing in: leave in place till F/U Follow Up Care Please Follow Up With: Ashkan Ortiz MD When: 2 days Test Results: Test results from this visit will be discussed in further detail at your follow- up appointment, if applicable. Discharge Plan Admission Attending Provider: Ashkan Ortiz [facility] Orders/Prescriptions Prescriptions: No Action dicyclomine 20 mg tablet 20 mg PO TID PRN (Reason: abdominal pain) Qty: 180 3RF pantoprazole [Protonix] 40 mg tablet,delayed release (DR/EC) 40 mg PO DAILY Qty: 90 3RF Vraylar 1.5 mg capsule 1.5 mg PO QODAY eletriptan [Relpax] 20 mg tablet See Rx Instructions .ROUTE .COMPLEX Qty: 9 2RF Rx Instructions: Take 1 tablet PO every 2 hours as needed for headache up to 2 tablets per day Ubrelvy 100 mg tablet 100 mg PO .COMPLEX Qty: 10 4RF Rx Instructions: Take 1 tablet orally every 2 hours as needed for headache up to 2 tablets daily Aimovig Autoinjector 140 mg/mL auto-injector 140 mg subcut QMONTH Qty: 1 10RF ondansetron HCl 4 mg tablet 4 mg PO TID PRN (Reason: nausea and vomiting) Qty: 90 8RF tizanidine [Zanaflex] 4 mg tablet 8 mg PO QHS Qty: 60 10RF Zyrtec 10 mg capsule 10 mg PO DAILY ibuprofen 800 mg tablet 800 mg PO Q8H PRN (Reason: pain) 7 Days Qty: 30 0RF cyanocobalamin (vitamin B-12) [Vitamin B-12] 100 mcg tablet 100 mcg PO DAILY propranolol 20 mg tablet 20 mg PO BID Qty: 90 3RF buspirone 30 mg tablet 30 mg PO BID 90 Days Qty: 180 1RF Referrals / Follow Up: Ashkan Ortiz MD [Med Staff - Active Staff] - [facility] - Disposition Disposition (needs filled in before D/C Order can be placed): Home, Self Care
[2022-12-18] MEDS: Oxycodone/Apap 5/325 Tablet PO (10:04)
== END 2022-12-18 10:26 | disposition home or self-care (01) ==
LOC: SDC 07:08 → AC 07:10
PROVIDERS: Visit Provider Orthopaedic Surgery Sports Medicine
PROC: (CPT 29848; principal; 2022-12-18 08:30)
DX: G56.01 Carpal tunnel syndrome, right upper limb (principal); F31.9 Bipolar disorder, unspecified; F41.1 Generalized anxiety disorder; Z87.891 Personal history of nicotine dependence; I10 Essential (primary) hypertension; Z79.899 Other long term (current) drug therapy
CPT/HCPCS: 29848; 01830; J7120; J2405

== ENCOUNTER → 2023-02-18 | Outpatient (CLI) | payer OTHER, SELFPAY ==
[2023-02-18 11:25] LABS: Erythrocyte Sedimentation Rate 7 mm/hr (0-30)
[2023-02-18 12:01] LABS: Vitamin B12 667 pg/mL (211-911); Vitamin D,25 Hydroxy 42.8 ng/mL
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
[2023-02-18 12:14] LABS: CRP < 2.90 mg/L (0.0-3.0); Iron 155 ug/dL (50-170); Iron Binding Capacity,Total 379 ug/dL (250-450); PERCENT IRON SATURATION 40.9 % (15.0-55.0); Rheumatoid Factor < 10.0 IU/mL (<15)
[2023-02-19 11:08] LABS: ANTINUCLEAR ANTIBODIES DIRECT Negative (Negative)
[2023-02-19 18:07] LABS: CCP IgG Antibodies 6 units (0-19); Lyme Scn Total Ab w/Rflx Negative (Negative)
== END | disposition home or self-care (01) ==
PROVIDERS: Referring Provider Nurse Practitioner Family; Visit Provider Nurse Practitioner Family
DX: M25.50 Pain in unspecified joint (principal)
CPT/HCPCS: 36415; 82306; 82607; 83540; 83550; 85652; 86038; 86140; 86200; 86431; 86618

== ENCOUNTER → 2023-02-25 | Outpatient (CLI) | payer OTHER, SELFPAY ==
[2023-02-25 12:11] LABS: Absolute Lymphocyte Count 1.94 X10^3/uL (0.83-4.51); Absolute Neutrophil Count 4.2 X10^3/uL (2.0-7.7); Basophil# 0.05 X10^3/uL; Basophil% 0.7 % (0-1); Eosinophil# 0.13 X10^3/uL; Eosinophils% 1.9 % (0-5); Hematocrit 34.8 % (37-47); Hemoglobin 11.6 g/dL (12.0-15.0); Lymphocyte # 1.94 X10^3/ul (0.83-4.51); Lymphocyte % 28.4 % (19-41); Mean Corp Hgb Conc 33.3 g/dL (32-36); Mean Corpuscular Hgb 30.4 pg (27.0-32.0); Mean Corpuscular Volume 91.3 fL (81-99); Mean Platelet Vol. 9.8 fl (6.2-12.0); Monocyte# 0.49 X10^3/uL; Monocyte% 7.2 % (0-10); NRBC Flagged by Analyzer 0 % (0-5); Neutrophil # 4.21 X10^3/uL (2.7-7.7); Neutrophil % 61.5 % (47-70); Platelet Count 289 K/mm3 (150-450); RBC Distribution Width CV 13.2 % (11.6-14.6); RBC Distribution Width SD 44.3 fl (35.1-43.9); Red Blood Count 3.81 M/mm3 (4.2-5.4); White Blood Count 6.8 K/mm3 (4.4-11.0)
[2023-02-25 12:33] LABS: Prolactin 19.7 ng/mL
== END | disposition home or self-care (01) ==
LOC: BIMLAB 10:34
PROVIDERS: Referring Provider Registered Nurse; Visit Provider Registered Nurse
DX: N64.52 Nipple discharge (principal); N64.4 Mastodynia
CPT/HCPCS: 36415; 84146; 85025

== ENCOUNTER → 2023-02-27 | Outpatient (CLI) | payer OTHER, SELFPAY ==
--- NOTE | 2023-02-27 08:48 | BI_ITS ---
MAMMOGRAPHY - BILATERAL DIAGNOSTIC REASON FOR EXAM: Female, 37 years old. One week history of right breast discharge. PERTINENT HISTORY: Grandmother with breast cancer. TECHNIQUE: Digital bilateral breast celso (3D mammographic acquisition) in the CC and MLO projections. 2-D mediolateral oblique (MLO) and craniocaudad (CC) views of both breasts were obtained. CAD: Full Field Digital Mammography with Computer Added Detection was performed. COMPARISON: Comparison is made with prior study dated June 12, 2022 and March 09, 2021. FINDINGS: Breast Composition: The breasts are heterogeneously dense, which may obscure small masses. There are no dominant masses or suspicious calcifications. A tissue clip marker is seen in the upper slightly lateral aspect of the left breast. Stable fat-containing bilateral axillary lymph nodes. No other significant abnormalities are identified. There has been no significant change since the prior study. BI/DIAG MAMM W/CAD, BILAT IMPRESSION: Stable bilateral diagnostic mammogram. With the patient''s history of right breast discharge, targeted correlation with ultrasound is recommended. ASSESSMENT CATEGORY: BIRADS Category 0: Incomplete. Need additional imaging evaluation. A letter regarding these results will be sent to the patient by the facility within 30 days. Approximately 10% of breast cancers are not detected by mammography. A normal mammogram should not delay biopsy of a clinically suspicious abnormality. Electronically Signed: Paramjit Kumari MD at 10:39 EST ,
--- NOTE | 2023-02-27 08:48 | US_ITS ---
STUDY: ULTRASOUND BREAST - RIGHT REASON FOR EXAM: Female, 37 years old. Right breast tenderness and discharge. TECHNIQUE: Axial and longitudinal images of the RIGHT breast were performed with a high resolution ultrasound transducer. # OF IMAGES: 26 COMPARISON: Comparison is made with prior mammogram done earlier today. FINDINGS: RIGHT Breast: The retroareolar region of the right breast was examined with ultrasound. No sonographic abnormality is seen. US/Breast Limited Unilateral IMPRESSION: No sonographic abnormalities are seen. ASSESSMENT CATEGORY: BIRADS Category 1: Negative. A letter regarding these results will be sent to the patient by the facility within 30 days. Electronically Signed: Paramjit Kumari MD at 11:08 EST ,
== END | disposition home or self-care (01) ==
LOC: OPBI 08:48
PROVIDERS: Referring Provider Registered Nurse; Visit Provider Registered Nurse
DX: N64.4 Mastodynia (principal); Z80.3 Family history of malignant neoplasm of breast
CPT/HCPCS: 76642; 77062; 77066; G0279

== ENCOUNTER 2023-05-05 21:57 | Emergency (ER) | payer OTHER, SELFPAY ==
[2023-05-05 21:58] VITALS: BP 175/89; PULSE 69; RESP 18; TEMP 36.8; O2SAT 99; BMI 44.9
--- NOTE | 2023-05-05 22:29 | CT_ITS ---
EXAM: CT HEAD WITHOUT INTRAVENOUS CONTRAST CLINICAL INDICATION: Pain TECHNIQUE: Multiple axial images were obtained of the head without intravenous contrast. This CT exam was performed using one or more of the following dose reduction techniques: automated exposure control, adjustment of the mA and/or kV according to patient size, and/or use of iterative reconstruction technique. RADIATION DOSE: Total DLP: 728.62 mGy-cm. COMPARISON: Cranial CT report of 04/15/2019. FINDINGS: BRAIN AND EXTRA-AXIAL SPACES: Unremarkable. No intra- or extra-axial hemorrhage. No evidence of acute infarct. No intracranial mass or mass effect. There is preservation of the flores/white matter interface. Posterior fossa structures are unremarkable. Ventricles are appropriate for age. No hydrocephalus. Basal cisterns are patent. BONES/JOINTS: Unremarkable. No discrete lytic or blastic abnormalities. SINUSES: Unremarkable as visualized. Clear. MASTOID AIR CELLS: Unremarkable. Clear. ORBITS: Visualized globes, extraocular muscles, optic nerves and retrobulbar fat appear unremarkable. CT/Brain/Head without Contrast IMPRESSION: Negative head/brain CT without intravenous contrast. Electronically Signed: Scooter Diallo MD at 23:46 EDT ,
[2023-05-05] MEDS: Metoclopramide 10 MG/2 ML Vial IV (22:40)
[2023-05-05] MEDS: 0.9% Normal Saline (1000mL) 1,000 ML 999 ML IV (22:40)
[2023-05-05] MEDS: Ketorolac 15 MG/ML Vial IV (22:40)
[2023-05-05] MEDS: DiphenhydrAMINE 50 MG/ML Syringe 25 MG IV (22:40)
--- NOTE | 2023-05-05 22:51 | EX.ED.VIS.HA ---
HPI History of Present Illness Chief Complaint: Headache Narrative Narrative: 37-year-old female presenting with headache. She believes this is a migraine headache but it is more severe than usual however the patient states she has not had a migraine headache in a long time because it is usually well-controlled. Patient states she has medication to abort migraines but she did not take it today because it started off as a regular headache. She states she take Ubrelvy as well. Patient denies any head trauma. No fevers or chills. No acute onset headache. No visual disturbances although patient has nausea. [facility] Medical History Abnormal EKG Acid reflux Alcohol use Bilateral carpal tunnel syndrome Bipolar 1 disorder Bradycardia Carpal tunnel syndrome Chest pain Chronic diarrhea Chronic headaches Chronic neck and back pain Environmental allergies Essential hypertension Former smoker Gastric reflux Generalized anxiety disorder GI bleed H/O emotional problems H/O hemorrhoids History of eating disorder History of echocardiogram History of gallstones History of Holter monitoring History of IBS History of irregular heartbeat History of stress test History of UTI Hx of vertigo Hypertension IBS (irritable bowel syndrome) Migraine headache Neuropathy Nonscarring hair loss Numbness and tingling in both hands Positive Tinel's sign Right ear impacted cerumen Screening for thyroid disorder Severe headache Tinnitus Tinnitus, right vision problem with headache Vitamin deficiency Wears dentures Wears glasses Wears partial dentures Home Medications cetirizine 10 mg capsule (Zyrtec) 10 mg PO DAILY 02/15/20 [History Last Taken Unknown] ibuprofen 800 mg tablet 800 mg PO Q8H PRN pain 7 days #30 tabs 03/13/21 [Rx Last Taken Unknown] dicyclomine 20 mg tablet 20 mg PO TID PRN abdominal pain #180 tabs 11/16/21 [Rx Last Taken Unknown] propranolol 20 mg tablet 20 mg PO BID BP #90 tabs 02/13/22 [Rx Last Taken 12/18/22] pantoprazole 40 mg tablet,delayed release (Protonix) 40 mg PO DAILY reflux #90 tabs 02/27/22 [Rx Last Taken 12/18/22] buspirone 30 mg tablet 30 mg PO BID 90 days #180 tabs 05/28/22 [Rx Last Taken Unknown] Ubrelvy 100 mg tablet (ubrogepant) 100 mg PO .COMPLEX migraine headache #10 tabs 11/25/22 [Rx Last Taken Unknown] cariprazine 1.5 mg capsule (Vraylar) 1.5 mg PO QODAY 11/25/22 [History Last Taken Unknown] eletriptan 20 mg tablet (Relpax) See Rx Instructions .Route .COMPLEX #9 tabs 11/25/22 [Rx Last Taken Unknown] erenumab-aooe 140 mg/mL subcutaneous auto-injector (Aimovig Autoinjector) 140 mg subcut QMONTH migraines #1 mL 11/25/22 [Rx Last Taken Unknown] ondansetron HCl 4 mg tablet 4 mg PO TID PRN nausea and vomiting #90 tabs 11/25/22 [Rx Last Taken Unknown] tizanidine 4 mg tablet (Zanaflex) 8 mg (2 x 4 mg) PO QHS #60 tabs 11/25/22 [Rx Last Taken Unknown] cyanocobalamin (vitamin B-12) 100 mcg tablet (Vitamin B-12) 100 mcg PO DAILY 12/06/22 [History Last Taken Unknown] tramadol 50 mg tablet 50 mg PO BID PRN pain #14 tabs 03/05/23 [Rx Last Taken Unknown] Allergy/AdvReac Type Severity Reaction Status Date / Time Penicillins AdvReac Severe hives Verified 05/05/23 21:58 cefaclor [From Ceclor] AdvReac Intermediate Hives Verified 05/05/23 21:58 doxycycline AdvReac Intermediate Diarrhea Verified 05/05/23 21:58 Family History Mother Hypertension Arthritis Anemia Father Diabetes Anesthesia complication Brother Brain cancer Anxiety Sister Asthma Grandmother CVA (cerebral vascular accident) Daughter Anxiety Grandfather COPD (chronic obstructive pulmonary disease) CVA (cerebral vascular accident) Other Seizures Surgical History H/O dilation and curettage History of cholecystectomy History of hysterectomy History of right salpingo-oophorectomy History of salpingectomy History of tonsillectomy history of upper and lower scope Hx of colonoscopy Hx of esophagogastroduodenoscopy Social History household members: spouse and children number of children: 3 current occupational status: employed current occupation: [employer] history of recent travel: No sexually active: Yes Smoking Status: Former smoker alcohol intake: never substance use type: does not use caffeine: No what type of physical activity do you participate in: running frequency: 3-4 times per week seatbelt use: always do you feel safe at home: Yes additional social history: - Donald BONILLA ROS ED Constitutional Constitutional ED: Denies chills, fever(s) or sweats Eyes Eyes: Denies blurry vision or change in vision ENT ENT ED: Denies ear pain or sore throat Cardiovascular Cardiovascular: Denies chest pain, palpitations or racing heartbeat Respiratory/Chest Respiratory/Chest: Denies cough, dyspnea or sputum Gastrointestinal Gastrointestinal: Reports nausea; Denies abdominal pain, constipation, diarrhea or vomiting Genitourinary Genitourinary ED: Denies dysuria, hematuria or urinary frequency Musculoskeletal Musculoskeletal: Denies arthralgias, myalgias or neck pain Integumentary Denies abscess, Abrasions or rash Neurologic Neurologic: Reports headache(s); Denies paresthesias or weakness Psychiatric Psychiatric: Denies anxiety, depression, suicidal ideation or suicidal thoughts Endocrine Endocrinology: Denies polydipsia or polyuria EXAM Physical Exam Const Vital Signs: 05/05/23 21:58 Temperature 98.2 F Temperature Source Temporal Pulse Rate 69 Respiratory Rate 18 Blood Pressure 175/89 H Blood Pressure Mean 117 Pulse Ox 99 Oxygen Delivery Method Room Air Positive well nourished General Appearance ED: NAD; Negative for pallor HEENT Reports normocephalic and TM's clear atraumatic Tympanic Membrane ED: Yes TM's clear Eyes PERRL and EOMs intact bilaterally Neck no lymphadenopathy and supple Resp normal respiratory effort and clear to auscultation bilaterally Auscultation: Negative for rales or rhonchi Cardio regular rate and regular rhythm GI non-tender Neuro oriented x3 and CN's II-XII intact bilaterally Neuro Narrative: No focal neurologic deficits or lateralizing signs or symptoms. Strength 5/5 throughout. Mer Coma Scale: document GCS findings Spontaneous Obeys Commands Oriented 15 Sensorium / Orientation: awake and alert Skin General Skin Exam: Negative for jaundice or pallor MDM MDM MDM Narrative Medical decision making narrative: Patient presenting with headache. Has a history of migraines. She states is typically well-controlled but this is a breakthrough. She did not take her abortive medicine today. Because her headache seems to be worse to her we will obtain a CT brain. Patient given Reglan, Benadryl, Toradol as well as a liter of normal saline. Will reevaluate. Reevaluation at 11:18 PM the patient is doing a little bit better but still having some pressure. We ordered some IV Decadron and CT appears to be negative on my interpretation of still waiting for radiology to review. CT brain was negative. Patient discharged with ambulation after her headache was better. Impression: 1. headache Lab Data Attestation: I reviewed the patient's lab results. Radiography Diagnostic Testing: Clinical Impression(s) from Imaging Studies Brain CT 05/05/23 22:29 IMPRESSION: Negative head/brain CT without intravenous contrast. Electronically Signed: Scooter Diallo MD at 23:46 EDT , Discharge Plan Triage Chief Complaint: Headache ED Provider: Jani Coronado Dx/Rx/DC Orders Instructions: ED Headache Unspecified Prescriptions: No Action dicyclomine 20 mg tablet 20 mg PO TID PRN (Reason: abdominal pain) Qty: 180 3RF pantoprazole [Protonix] 40 mg tablet,delayed release (DR/EC) 40 mg PO DAILY Qty: 90 3RF Vraylar 1.5 mg capsule 1.5 mg PO QODAY eletriptan [Relpax] 20 mg tablet See Rx Instructions .ROUTE .COMPLEX Qty: 9 2RF Rx Instructions: Take 1 tablet PO every 2 hours as needed for headache up to 2 tablets per day Ubrelvy 100 mg tablet 100 mg PO .COMPLEX Qty: 10 4RF Rx Instructions: Take 1 tablet orally every 2 hours as needed for headache up to 2 tablets daily Aimovig Autoinjector 140 mg/mL auto-injector 140 mg subcut QMONTH Qty: 1 10RF ondansetron HCl 4 mg tablet 4 mg PO TID PRN (Reason: nausea and vomiting) Qty: 90 8RF tizanidine [Zanaflex] 4 mg tablet 8 mg PO QHS Qty: 60 10RF Zyrtec 10 mg capsule 10 mg PO DAILY ibuprofen 800 mg tablet 800 mg PO Q8H PRN (Reason: pain) 7 Days Qty: 30 0RF cyanocobalamin (vitamin B-12) [Vitamin B-12] 100 mcg tablet 100 mcg PO DAILY propranolol 20 mg tablet 20 mg PO BID Qty: 90 3RF buspirone 30 mg tablet 30 mg PO BID 90 Days Qty: 180 1RF tramadol 50 mg tablet 50 mg PO BID PRN (Reason: pain) Qty: 14 0RF Primary Care Provider: [facility] Clarisse Stearns Referrals: [facility] Clarisse Stearns [Primary Care Provider] - Disposition Disposition: Home, Self Care Discharge Date/Time: 05/05/23 23:57
[2023-05-05] MEDS: dexAMETHasone 10 MG/ML Vial IV (23:25)
[2023-05-05] MEDS: Ondansetron 4 MG/2 ML Vial IV (23:32)
[2023-05-05 23:55] VITALS: BP 129/62; PULSE 74; RESP 14; TEMP 36.6; O2SAT 98
== END 2023-05-05 23:57 | disposition home or self-care (01) ==
PROVIDERS: Emergency Provider Student in an Organized Health Care Education/Training Program; Visit Provider Student in an Organized Health Care Education/Training Program
DX: R51.9 Headache, unspecified (principal); R11.0 Nausea; Z87.891 Personal history of nicotine dependence; I10 Essential (primary) hypertension; Z90.710 Acquired absence of both cervix and uterus; Z90.49 Acquired absence of other specified parts of digestive tract; K21.9 Gastro-esophageal reflux disease without esophagitis
CPT/HCPCS: 70450; 96361; 96374; 96375; 99283; J7030; A4216; J2405

== ENCOUNTER 2023-06-11 06:00 | Day surgery (SDC) | payer OTHER, SELFPAY ==
[2023-06-11] VITALS (7 sets, daily range): BP systolic 108–120; BP diastolic 67–79; PULSE 54–68; RESP 16–18; TEMP 36.8; O2SAT 92–100; BMI 43.9
[2023-06-11 06:37] LABS: Internal QC Validated? YES +Cl - CLEAR BKGD; Pregnancy, Urine Negative Negative
[2023-06-11] MEDS: Lactated Ringers 1,000 ML 15 ML IV (07:15)
--- NOTE | 2023-06-11 07:15 | HP.PCM_ITS ---
HPI - General HPI Narrative DOMINIK JOSEPH, is a 37 F who presents for left ECTR. ok to proceed. no changes to h and p. consent up to date. left wrist marked. rab, instructions and post op care discussed. MR#: [id number] Acct: [id number] Name: DOMINIK JOSEPH Rep #: [id number] : 1985 Provider: Dr. Ashkan Ortiz MD Age/Sex: 37/F Location: [facility] Status: Signed with Addenda ADDENDUM by Dr. Ashkan Ortiz MD on 05/27/23 at 1148 Assessment and Plan Assessment and Plan (1) Carpal tunnel syndrome, right: Status: Acute Plan: REMOVE CPT for injection (2) Bilateral carpal tunnel syndrome: Status: Acute Plan Details Goals & Barriers: Goals Decrease pain Decrease spasm Improve workability 05/27/23 1148 <Electronically signed by Ashkan Ortiz MD> Date Ashkan Ortiz MD cc: ~* Signed Intake Vital Signs 05/04/2420:58 05/21/2407:16 Height 5 ft 5 in 5 ft 5 in Intake Visit Reasons: LEFT WRIST Accompanied by: Self Is patient in pain?: Yes Pain scale (1-10): 5 Allergies Penicillins Adverse Reaction (Severe, Verified 05/27/23 11:16) hives cefaclor [From Ceclor] Adverse Reaction (Intermediate, Verified 05/27/23 11:16) Hivesdoxycycline Adverse Reaction (Intermediate, Verified 05/27/23 11:16) Diarrhea Medications cetirizine 10 mg capsule (Zyrtec) 10 mg PO DAILY 02/15/20 [History Confirmed 05/27/23] ibuprofen 800 mg tablet 800 mg PO Q8H PRN pain 7 days #30 tabs 03/13/21 [Rx Confirmed 05/27/23] dicyclomine 20 mg tablet 20 mg PO TID PRN abdominal pain #180 tabs 11/16/21 [Rx Confirmed 05/27/23] propranolol 20 mg tablet 20 mg PO BID BP #90 tabs 12/28/22 [Rx Confirmed 05/27/23] pantoprazole 40 mg tablet,delayed release (Protonix) 40 mg PO DAILY reflux #90 tabs 02/27/22 [Rx Confirmed 05/27/23] buspirone 30 mg tablet 30 mg PO BID 90 days #180 tabs 05/28/22 [Rx Confirmed 05/27/23] Ubrelvy 100 mg tablet (ubrogepant) 100 mg PO .COMPLEX migraine headache #10 tabs 11/25/22 [Rx Confirmed 05/27/23] cariprazine 1.5 mg capsule (Vraylar) 1.5 mg PO QODAY 11/25/22 [History Confirmed 05/27/23] eletriptan 20 mg tablet (Relpax) See Rx Instructions .Route .COMPLEX #9 tabs 11/25/22 [Rx Confirmed 05/27/23] erenumab-aooe 140 mg/mL subcutaneous auto-injector (Aimovig Autoinjector) 140 mg subcut QMONTH migraines #1 mL 11/25/22 [Rx Confirmed 05/27/23] ondansetron HCl 4 mg tablet 4 mg PO TID PRN nausea and vomiting #90 tabs 11/25/22 [Rx Confirmed 05/27/23] tizanidine 4 mg tablet (Zanaflex) 8 mg (2 x 4 mg) PO QHS #60 tabs 11/25/22 [Rx Confirmed 05/27/23] cyanocobalamin (vitamin B-12) 100 mcg tablet (Vitamin B-12) 100 mcg PO DAILY 12/06/22 [History Confirmed 05/27/23] [facility] History Abnormal EKG Acid reflux Alcohol use Bilateral carpal tunnel syndrome Bipolar 1 disorder Bradycardia Carpal tunnel syndrome Chest pain Chronic diarrhea Chronic headaches Chronic neck and back pain Environmental allergies Essential hypertension Former smoker Gastric reflux Generalized anxiety disorder GI bleed H/O emotional problems H/O hemorrhoids History of eating disorder History of echocardiogram History of gallstones History of Holter monitoring History of IBS History of irregular heartbeat History of stress test History of UTI Hx of vertigo Hypertension IBS (irritable bowel syndrome) Migraine headache Neuropathy Nonscarring hair loss Numbness and tingling in both hands Positive Tinel's sign Right ear impacted cerumen Screening for thyroid disorder Severe headache Tinnitus Tinnitus, right vision problem with headache Vitamin deficiency Wears dentures Wears glasses Wears partial dentures Surgical History H/O dilation and curettage History of cholecystectomy History of hysterectomy History of right salpingo-oophorectomy History of salpingectomy History of tonsillectomy history of upper and lower scope Hx of colonoscopy Hx of esophagogastroduodenoscopy Family History Mother Hypertension Arthritis AnemiaFather Diabetes Anesthesia complicationBrother Brain cancer AnxietySister AsthmaGrandmother CVA (cerebral vascular accident)Daughter AnxietyGrandfather COPD (chronic obstructive pulmonary disease) CVA (cerebral vascular accident)Other Seizures Social History household members: spouse and children number of children: 3 current occupational status: employed current occupation: [employer] history of recent travel: No sexually active: Yes Smoking Status: Former smoker alcohol intake: never substance use type: does not use caffeine: No what type of physical activity do you participate in: running frequency: 3-4 times per week seatbelt use: always do you feel safe at home: Yes additional social history: - Donald LONG LEFT WRIST Details: This documentation accurately reflects the service provided and the decisions made by me, Dr. Ashkan Ortiz MD 05/27/23 1028. Part of today?s visit was documented by [ ], acting as scribe. DOMINIK JOSEPH is a 37 year old F here today for 5 months follow-up right endoscopic carpal tunnel release. Wants a left carpal tunnel cortisone injection. Let side getting worse - there all the time. Mostly middle and thumb Ortho Exam General General: Yes no acute distress Neurologic: Yes alert and Yes oriented x3 Psychologic: Yes reasonable and appropriate Right Wrist/Hand Skin/Wound: Yes CDI, Yes healed, No Swelling, No Ecchymosis, Yes nail intact and Yes capillary refill normal Right Wrist: Yes ROM-Extension 0-60, ROM-Flexion 0-80, ROM-Pronation 0-80 and ROM-Supination 0-90 Motor: EPL: 5, FDP-2: 5, 1st Dorsal Interosseous: 5 and APB: 5 Sensation: Radial: I, Ulnar: I and Median: I Left Wrist/Hand Skin/Wound: No Swelling and No Ecchymosis Left Wrist: Yes ROM-Extension 0-60, Yes ROM-Flexion 0-80, Yes ROM-Pronation 0-80 and Yes ROM-Supination 0-90; No Thenar Atrophy and No Hypothenar Atrophy Motor: EPL: 5, FDP-2: 5, 1st Dorsal Interosseous: 5 and APB: 5 Sensation: Radial: I, Ulnar: I and Median: D Supplemental Info This is an abnormal study. 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 Findings are electrically mild on the right and borderline on the left. The pathophysiology is demyelinating and compatible with the clinical diagnosis of carpal tunnel syndrome. In addition, there is no electrophysiologic evidence of superimposed cervical radiculopathy in the right upper extremity. Coding Level of Care Code Attention Lock Master Diagnoses Carpal tunnel syndrome, right G56.01 Bilateral carpal tunnel syndrome G56.03 Comment 01958 and cpt inject carpal tunnel Assessment and Plan Assessment and Plan (1) Carpal tunnel syndrome, right: Status: Acute Plan: DOMINIK JOSEPH is a 37 year old F here today for 5 months follow-up right endoscopic carpal tunnel release. Patient is doing well from that standpoint and is more interested in proceeding with left endoscopic carpal tunnel release. We did an injection related the surgery so she would prefer to try to get this done by the end of the month I will see what we can do to expedite that. For now we will sign the consent form for surgery and we will proceed with that. Pros and cons risks and benefits were discussed with the patient including but not limited to infection, pain, stiffness, bleeding, damage to surrounding structures, neurovascular injury, recurrence or retear, failure or wear of hardware or fixation, instability, fracture, deep vein thrombosis and pulmonary embolism, anesthetic risks, , patient dissatisfaction, need for further surgery and other risks. Patient understood and wished to proceed with surgery, and signed the informed consent documentation. (2) Bilateral carpal tunnel syndrome: Status: Acute Plan Details Goals & Barriers: Goals Decrease pain Decrease spasm Improve workability [facility] Medical History Abnormal EKG Alcohol use Bilateral carpal tunnel syndrome Bipolar 1 disorder Bradycardia Chest pain Chronic diarrhea Chronic neck and back pain Essential hypertension Former smoker Gastric reflux Generalized anxiety disorder GI bleed H/O emotional problems H/O hemorrhoids History of eating disorder History of echocardiogram History of Holter monitoring History of irregular heartbeat History of stress test Hx of vertigo Hypertension IBS (irritable bowel syndrome) Migraine headache Neuropathy Nonscarring hair loss Numbness and tingling in both hands Positive Tinel's sign Right ear impacted cerumen Screening for thyroid disorder Tinnitus Tinnitus, right vision problem with headache Vitamin deficiency Wears dentures Wears glasses Wears partial dentures Home Medications cetirizine 10 mg capsule (Zyrtec) 10 mg PO DAILY 02/15/20 [History Last Taken Unknown] ibuprofen 800 mg tablet 800 mg PO Q8H PRN pain 7 days #30 tabs 03/13/21 [Rx Last Taken Unknown] dicyclomine 20 mg tablet 20 mg PO TID PRN abdominal pain #180 tabs 11/16/21 [Rx Last Taken Unknown] pantoprazole 40 mg tablet,delayed release (Protonix) 40 mg PO DAILY reflux #90 tabs 02/27/22 [Rx Last Taken 06/11/23 05:00] buspirone 30 mg tablet 30 mg PO BID 90 days #180 tabs 05/28/22 [Rx Last Taken 06/11/23 05:00] Ubrelvy 100 mg tablet (ubrogepant) 100 mg PO .COMPLEX migraine headache #10 tabs 11/25/22 [Rx Last Taken Unknown] cariprazine 1.5 mg capsule (Vraylar) 1.5 mg PO DAILY 11/25/22 [History Last Taken 06/11/23 05:00] eletriptan 20 mg tablet (Relpax) See Rx Instructions .Route .COMPLEX #9 tabs 11/25/22 [Rx Last Taken Unknown] erenumab-aooe 140 mg/mL subcutaneous auto-injector (Aimovig Autoinjector) 140 mg subcut QMONTH migraines #1 mL 11/25/22 [Rx Last Taken Unknown] ondansetron HCl 4 mg tablet 4 mg PO TID PRN nausea and vomiting #90 tabs 3 [Rx Last Taken Unknown] tizanidine 4 mg tablet (Zanaflex) 8 mg (2 x 4 mg) PO QHS #60 tabs 11/25/22 [Rx Last Taken Unknown] cyanocobalamin (vitamin B-12) 100 mcg tablet (Vitamin B-12) 100 mcg PO DAILY 12/06/22 [History Last Taken Unknown] propranolol 20 mg tablet 20 mg PO DAILY BP 06/05/23 [History Last Taken 06/11/23 05:00] Allergy/AdvReac Type Severity Reaction Status Date / Time Penicillins AdvReac Severe hives Verified 06/11/23 06:56 cefaclor [From Ceclor] AdvReac Intermediate Hives Verified 06/11/23 06:56 doxycycline AdvReac Intermediate Diarrhea Verified 06/11/23 06:56 Family History Mother Hypertension Arthritis Anemia Father Diabetes Anesthesia complication Brother Brain cancer Anxiety Sister Asthma Grandmother CVA (cerebral vascular accident) Daughter Anxiety Grandfather COPD (chronic obstructive pulmonary disease) CVA (cerebral vascular accident) Other Seizures Surgical History H/O dilation and curettage History of carpal tunnel surgery of right wrist History of cholecystectomy History of hysterectomy History of right salpingo-oophorectomy History of salpingectomy History of tonsillectomy history of upper and lower scope Hx of colonoscopy Hx of esophagogastroduodenoscopy Social History household members: spouse and children number of children: 3 current occupational status: employed current occupation: [employer] history of recent travel: No sexually active: Yes Smoking Status: Former smoker alcohol intake: never substance use type: does not use caffeine: No what type of physical activity do you participate in: running frequency: 3-4 times per week seatbelt use: always do you feel safe at home: Yes additional social history: - Donald Vital Signs Vital Signs Vital Signs: 06/11/23 07:01 06/11/23 07:01 Temperature 98.3 F Temperature Source Temporal Pulse Rate 55 L Respiratory Rate 16 Respiratory Pattern Normal Blood Pressure 114/73 Blood Pressure Mean 86 Blood Pressure Source Monitor Blood Pressure Position Semi-Fowlers Blood Pressure Location Left Forearm Pulse Ox 100 Oxygen Delivery Method Room Air Weight Weight: 264 lb 1.82 oz Body Mass Index (BMI) 43.9 Results Lab / Micro Data Labs: Laboratory Results - last 24 hr 06/11/23 06:25: Urine Test Negative
[2023-06-11] MEDS: Bupivacaine 0.25% 30 ML Vial (07:26)
[2023-06-11] MEDS: Cefazolin 3 GM in 0.9% Normal Saline (100mL Bag) 100 ML IV (07:35)
--- NOTE | 2023-06-11 08:02 | OP.PCM_ITS ---
Problems Associated Problem List Diagnoses (1) Bilateral carpal tunnel syndrome: Report of Operation Date of Procedure: 06/11/23 Pre-Operative Diagnosis: L carpal tunnel syndrome Post-Operative Diagnosis: same Surgery/Procedure Performed:: Left endoscopic carpal tunnel release Surgeon: Ashkan Ortiz Type of Anesthesia: General and Local Anesthesiologist: Fei Anaya Estimated Blood Loss (mL): 5 Description of Procedure: Patient was brought to the operating room theater.? The patient was administered 2g iv ancef prior to the start of the procedure.? Placed supine on the operating room table.? Anesthesia induced.? SCDs on the legs.? Tourniquet applied to left upper operative extremity, appropriately padded. Arm table used. Operative extremity prepped and draped in the usual sterile fashion with chlorhexidine- based prep solution allowing over 3 minutes drying time prior to draping.? Pr eoperative timeout performed to confirm the site patient and the surgery. I used the [facility] endoscopic carpal tunnel kit / technique. 4 cc 0.25% bupivicaine at incision site. ? Tourniquet up at 250mmg. I made a transverse 2 cm incision in line with the? transverse wrist crease.? This was in line with the fourth digit.? I carried the dissection down through skin and subcutaneous tissue achieved meticulous hemostasis. Just ulnar to palmaris tendon.? I incised the antebrachial fascia.? I passed sequential dilators into the carpal tunnel along the radial border of the Guyon's canal aiming for the fourth digit with the hand in extension. I used a synovial elevator to identify the transverse fibers of the transverse carpal tunnel ligament.? Passed the scope into the carpal tunnel. Once I had identified the full proximal and distal extent of the ligament I fully released the ligament under direct visualization by deploying the blade and slowly withdrawing the scope made sequential passes until I no longer felt tension as well as the entire extent of the ligament was released under direct visualization.? Sounded the tunnel with devine tenotomy scissors, complete release, no bands. Pictures taken and saved before and after release. Tourniquet let down. Meticulous hemostasis. Incision closed with 3-0 nylon, simple interrupted. Skin was cleaned and dried. adaptic and 4x4 gauze and abebe wrap. Patient woken up,? transferred off the operating room table and taken to postanesthetic care unit in stable condition. All sponge needle instrument counts were correct no complications.? Plan for the patient to be discharged home according to day surgery criteria when they are comfortable. Follow-up in the office in 2 days time. Gentle ROM hand and elbow no heavy lifting. cpt [id number] Complications none Admit VTE Documentation VTE Present on Admission: No VTE Mechan Device Prophylaxis: SCD's VTE Pharm Prophylaxis ordered?: No Reason prophylaxis not ordered:: Treatment Not Indicated Procedures Musculoskeletal [id number]-29xxx: Other Procedure See Report
--- NOTE | 2023-06-11 08:06 | DCINST_ITS ---
Discharge Instructions Diet Discharge Diet: No restrictions Activity Discharge Activity: Return to Normal Activity Lifting Restrictions: no heavy lifting, or gripping, no lifting over 1 pound L arm Keep extremity elevated above heart level: Operative Extremity Dressing / Incision Call your doctor if your incision/area has: Continuous Slow Oozing, Sudden Increased Bleeding, Increased Pain/ Swelling, Increased Redness, Foul Smelling Discharge and Swelling at the incision site Remove Dressing in: leave in place till F/U Cleanse incision/area with: Do not get Incision Wet Additional Dressing/Incision Instructions:: OK to change dressing if needed, keep covered 2 weeks. Follow Up Care Please Follow Up With: Ashkan Ortiz MD When: 2 days Test Results: Test results from this visit will be discussed in further detail at your follow- up appointment, if applicable. Discharge Plan Admission Attending Provider: Ashkan Ortiz [facility] Orders/Prescriptions Prescriptions: No Action dicyclomine 20 mg tablet 20 mg PO TID PRN (Reason: abdominal pain) Qty: 180 3RF pantoprazole [Protonix] 40 mg tablet,delayed release (DR/EC) 40 mg PO DAILY Qty: 90 3RF Vraylar 1.5 mg capsule 1.5 mg PO DAILY eletriptan [Relpax] 20 mg tablet See Rx Instructions .ROUTE .COMPLEX Qty: 9 2RF Rx Instructions: Take 1 tablet PO every 2 hours as needed for headache up to 2 tablets per day Ubrelvy 100 mg tablet 100 mg PO .COMPLEX Qty: 10 4RF Rx Instructions: Take 1 tablet orally every 2 hours as needed for headache up to 2 tablets daily Aimovig Autoinjector 140 mg/mL auto-injector 140 mg subcut QMONTH Qty: 1 10RF ondansetron HCl 4 mg tablet 4 mg PO TID PRN (Reason: nausea and vomiting) Qty: 90 8RF tizanidine [Zanaflex] 4 mg tablet 8 mg PO QHS Qty: 60 10RF Zyrtec 10 mg capsule 10 mg PO DAILY ibuprofen 800 mg tablet 800 mg PO Q8H PRN (Reason: pain) 7 Days Qty: 30 0RF cyanocobalamin (vitamin B-12) [Vitamin B-12] 100 mcg tablet 100 mcg PO DAILY propranolol 20 mg tablet 20 mg PO DAILY buspirone 30 mg tablet 30 mg PO BID 90 Days Qty: 180 1RF Referrals / Follow Up: [facility] [Primary Care Provider] - Ashkan Ortiz MD [Med Staff - Active Staff] - Disposition Disposition (needs filled in before D/C Order can be placed): Home, Self Care
[2023-06-11] MEDS: Oxycodone/Apap 5/325 Tablet PO (09:05)
== END 2023-06-11 09:39 | disposition home or self-care (01) ==
LOC: SDC 06:38 → AC 06:39
PROVIDERS: Anesthesiology; Referring Provider Orthopaedic Surgery Sports Medicine; Visit Provider Orthopaedic Surgery Sports Medicine
PROC: (CPT 64721; principal; 2023-06-11 07:15)
DX: G56.03 Carpal tunnel syndrome, bilateral upper limbs (principal); F31.9 Bipolar disorder, unspecified; F41.1 Generalized anxiety disorder; Z87.891 Personal history of nicotine dependence; I10 Essential (primary) hypertension; Z79.899 Other long term (current) drug therapy
CPT/HCPCS: 64721; 01810; 81025; J7120; J2405

== ENCOUNTER → 2023-06-19 | Outpatient (CLI) | payer OTHER, SELFPAY ==
[2023-06-19 16:58] LABS: Absolute Lymphocyte Count 2.17 X10^3/uL (0.83-4.51); Absolute Neutrophil Count 4.5 X10^3/uL (2.0-7.7); Basophil# 0.04 X10^3/uL; Basophil% 0.5 % (0-1); Eosinophil# 0.13 X10^3/uL; Eosinophils% 1.8 % (0-5); Hematocrit 36.2 % (37-47); Hemoglobin 12.2 g/dL (12.0-15.0); Lymphocyte # 2.17 X10^3/ul (0.83-4.51); Lymphocyte % 29.7 % (19-41); Mean Corp Hgb Conc 33.7 g/dL (32-36); Mean Corpuscular Hgb 29.8 pg (27.0-32.0); Mean Corpuscular Volume 88.5 fL (81-99); Mean Platelet Vol. 10.3 fl (6.2-12.0); Monocyte# 0.45 X10^3/uL; Monocyte% 6.2 % (0-10); NRBC Flagged by Analyzer 0 % (0-5); Neutrophil % 61.7 % (47-70); Platelet Count 301 K/mm3 (150-450); RBC Distribution Width CV 12.7 % (11.6-14.6); RBC Distribution Width SD 40.9 fl (35.1-43.9); Red Blood Count 4.09 M/mm3 (4.2-5.4); White Blood Count 7.3 K/mm3 (4.4-11.0)
[2023-06-19 17:20] LABS: CRP < 2.90 mg/L (0.0-3.0)
== END | disposition home or self-care (01) ==
LOC: LAB 15:42
PROVIDERS: Referring Provider Orthopaedic Surgery Sports Medicine; Visit Provider Orthopaedic Surgery Sports Medicine
DX: G56.01 Carpal tunnel syndrome, right upper limb (principal)
CPT/HCPCS: 36415; 85025; 86140

== ENCOUNTER → 2023-11-11 | Outpatient (CLI) | payer OTHER, SELFPAY ==
--- NOTE | 2023-11-11 15:07 | NEURO ---
NCS and/or EMG Patient Report Ordering Doctor: Ashkan Ortiz DATE OF SERVICE: 11/11/23 Clinical Summary: 38 year old female patient with continued symptoms of numbness in the 3rd and 4th digits of the left hand s/p carpal tunnel release surgery in May 2023. Nerve Conduction Studies Summary: The left median sensory responses were normal. The left median-APB CMAP distal latency was prolonged. The left median motor conduction velocity was reduced in the forearm segment. Needle Examination Summary: Needle examination of select muscles of the left upper extremity was normal. 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 Multi Select Codes Neurology Neurology Interp Codes: 16502-86 Musc test done w/n test comp (interp) (1) and 83816-11 Nrv cndj test 7-8 studies (interp)
== END | disposition home or self-care (01) ==
LOC: PSN 13:49
PROVIDERS: PCP Nurse Practitioner Family; Referring Provider Orthopaedic Surgery Sports Medicine; Visit Provider Orthopaedic Surgery Sports Medicine
DX: R20.0 Anesthesia of skin (principal)
CPT/HCPCS: 95886; 95910

== ENCOUNTER 2023-11-26 11:38 | Day surgery (SDC) | payer OTHER, SELFPAY ==
[2023-11-26] VITALS (9 sets, daily range): BP systolic 97–136; BP diastolic 54–83; PULSE 55–72; RESP 16–18; TEMP 36.1–36.9; O2SAT 99–100; BMI 43.6
--- NOTE | 2023-11-26 13:00 | PCM.PRE.AN2 ---
ASA Classification* ASA Classification ASA Classification: 3 Assessment & Plan Anesthesia* Anesthesia Assessment Anesthesia Assessment: Discussed sedation and/or anesthesia options, risks, benefits, and alternatives with patient/parents/legal guardian/POA. Questions invited. The patient/parents/legal guardian/POA seems to understand and agrees to proceed with anesthesia plan. Reviewed the physical assessment, medical history, allergy history and patient home medications list prior to surgery/procedure/anesthetic and documented any changes. Performed airway and anesthesia risk assessments. Anesthesia Type Anesthesia Type: MAC History Source History Obtained from:: Patient and Chart Anesthesia Focused Assessment* Temperature: 98.4 F Pulse Rate: 55 Blood Pressure: 136/64 Respiratory Rate: 18 Pulse Ox: 100 Oxygen Delivery Method: Room Air Airway Assessment Mouth opens: >3 cm Mallampati Score: I Teeth Condition: Full (Patient has full upper dentures.) and Partial (Patient has partial lower dentures.) Neck Range of motion (ROM): Full ROM Focused Labs Anesthesia Preop lab: CBC WBC 7.3 K/mm3 (4.4-11.0) 06/19/23 15:47 RBC 4.09 M/mm3 (4.2-5.4) L 06/19/23 15:47 Hgb 12.2 g/dL (12.0-15.0) 06/19/23 15:47 Hct 36.2 % (37-47) L 06/19/23 15:47 Plt Count 301 K/mm3 (150-450) 06/19/23 15:47 CHEMISTRY Potassium 4.4 mmol/L (3.5-5.1) 10/29/22 06:32 Sodium 141 mmol/L (136-145) 10/29/22 06:32 Magnesium 1.4 mg/dL (1.6-2.6) L 06/07/22 23:10 Phosphorus 4.9 mg/dL (2.5-4.9) 10/29/22 06:32 BUN 13 mg/dL (7-18) 10/29/22 06:32 Creatinine 0.95 mg/dL (0.55-1.02) 10/29/22 06:32 Glucose 101 mg/dL (74-106) 10/29/22 06:32 POC Glucose 93 mg/dL (70-110) 03/13/21 06:17 TSH 2.51 uIU/mL (0.358-3.74) 11/25/22 11:03 COAG Urine Test Negative Negative 06/11/23 06:25 Pre-Assessment Diagnosis/Proposed Procedure Planned Operative Procedure(s): LEFT OPEN CARPAL TUNNEL RELEASE Anesthesia History 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 When Was Last Pacemaker Check QUESTION #4 FULL TEXT: You/Your Family Experience fever (hyperthermia) with Anesthesia Last Oral Intake Last Oral intake: Last Oral Intake NPO since 07:00 11/26/23 12:04 Meds taken in AM with sips of Yes 11/26/23 12:04 water? 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 Female Yes 11/24/23 10:42 HX of Motion Sickness Yes 11/24/23 10:42 HX of N/V After Surgery No 11/24/23 10:42 Non-Smoker Yes 11/24/23 10:42 Duration of Surgery greater No 11/24/23 10:42 than 60 minutes Number of Risk Factors 3 11/24/23 10:42 PONV Score Moderate Risk 11/24/23 10:42 Height & Weight Height & Weight: Anesthesia: Height & Weight Height 5 ft 5 in 11/26/23 12:04 Weight: 119 kg 11/26/23 12:04 Body Mass Index (BMI) 43.6 11/26/23 12:04 Respiratory Assessment 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 Has anyone observed you stop No 11/24/23 10:42 breathing during sleep? STOP Results Negative 11/24/23 10:42 QUESTION #5 FULL TEXT : Do you snore loudly (louder than talking or can be heard through closed doors)? 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 Specify any problems Hx of Preganancy in last 3 No 11/24/23 10:42 Months Nurse Filling Out Transfusion DSCHRIBER 11/24/23 10:42 & Questions: Date: 11/24/23 11/24/23 10:42 Time: 10:43 11/24/23 10:42 Patient unable to answer at this time (ie. 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 Hx Now No 11/24/23 10:42 Gestational Age (in weeks): EDC: Hx Hx Para Hx Section SAB No 11/24/23 10:42 Active Medications Active Medications: Current Medications Generic Name Dose Route Start Last Admin Trade Name Freq PRN Reason Stop Dose Admin Cefazolin Sodium 2 gm/ Sodium 110 mls @ 150 mls/hr 11/26/23 13:10 Chloride IV 11/26/23 13:53 PREOP ONE [facility] Medical History (Updated 11/24/23 @ 10:46 by Mercy Germain) Cardiology follow-up encounter Acute conjunctivitis, left eye History of Holter monitoring Generalized anxiety disorder Vitamin deficiency Bilateral carpal tunnel syndrome Numbness and tingling in both hands Positive Tinel's sign Right ear impacted cerumen History of irregular heartbeat History of echocardiogram Chest pain History of stress test Bipolar 1 disorder Essential hypertension Abnormal EKG Bradycardia Wears glasses Wears dentures Wears partial dentures Alcohol use Migraine headache Hx of vertigo Gastric reflux Former smoker Hypertension Tinnitus Nonscarring hair loss Screening for thyroid disorder Tinnitus, right GI bleed vision problem with headache Neuropathy IBS (irritable bowel syndrome) H/O emotional problems History of eating disorder Chronic neck and back pain Chronic diarrhea H/O hemorrhoids Home Medications ?Medication ?Instructions ?Recorded ?Last Taken ?Type cetirizine 10 mg capsule (Zyrtec) 10 mg PO DAILY 02/15/20 Unknown History ibuprofen 800 mg tablet 800 mg PO Q8H PRN pain 7 days #30 03/13/21 Unknown Rx tabs dicyclomine 20 mg tablet 20 mg PO TID PRN abdominal pain 11/16/21 Unknown Rx #180 tabs pantoprazole 40 mg tablet,delayed 40 mg PO DAILY reflux #90 tabs 02/27/22 06/11/23 05:00 Rx release (Protonix) buspirone 30 mg tablet 30 mg PO BID 90 days #180 tabs 05/28/22 11/26/23 Rx cariprazine 1.5 mg capsule 1.5 mg PO DAILY 11/25/22 11/26/23 History (Vraylar) cyanocobalamin (vitamin B-12) 100 100 mcg PO DAILY 12/06/22 Unknown History mcg tablet (Vitamin B-12) propranolol 20 mg tablet 20 mg PO DAILY BP 06/05/23 11/26/23 History eletriptan 20 mg tablet (Relpax) See Rx Instructions .Route 09/29/23 Unknown Rx .COMPLEX #9 tabs erenumab-aooe 140 mg/mL 140 mg subcut QMONTH migraines #1 09/29/23 Unknown Rx subcutaneous auto-injector mL (Aimovig Autoinjector) ondansetron HCl 4 mg tablet 4 mg PO TID PRN nausea and 09/29/23 Unknown Rx vomiting #90 tabs tizanidine 4 mg tablet (Zanaflex) 8 mg (2 x 4 mg) PO QHS #60 tabs 09/29/23 Unknown Rx ubrogepant 100 mg tablet 100 mg PO .COMPLEX migraine 09/29/23 Unknown Rx headache #16 tabs Allergy/AdvReac Type Severity Reaction Status Date / Time Penicillins AdvReac Severe hives Verified 11/26/23 12:00 cefaclor (From Ceclor) AdvReac Intermediate Hives Verified 11/26/23 12:00 doxycycline AdvReac Intermediate Diarrhea Verified 11/26/23 12:00 Family History Mother Hypertension Arthritis Anemia Father Diabetes Anesthesia complication Brother Brain cancer Anxiety Sister Asthma Grandmother CVA (cerebral vascular accident) Daughter Anxiety Grandfather COPD (chronic obstructive pulmonary disease) CVA (cerebral vascular accident) Other Seizures Surgical History (Updated 11/24/23 @ 10:46 by Mercy Germain) History of carpal tunnel surgery of left wrist History of carpal tunnel surgery of right wrist History of salpingectomy History of right salpingo-oophorectomy History of hysterectomy Hx of colonoscopy Hx of esophagogastroduodenoscopy history of upper and lower scope History of cholecystectomy H/O dilation and curettage History of tonsillectomy Social History household members: spouse and children number of children: 3 current occupational status: employed current occupation: [employer] history of recent travel: No sexually active: Yes Smoking Status: Former smoker alcohol intake: never substance use type: does not use caffeine: No what type of physical activity do you participate in: running frequency: 3-4 times per week seatbelt use: always do you feel safe at home: Yes additional social history: - Donadl Review of Systems (Anesthesia) ROS Narrative System reviewed and no additional complaints, except as documented.
--- NOTE | 2023-11-26 13:19 | HP.PCM_ITS ---
HPI - General HPI Narrative DOMINIK JOSEPH, is a 38 F who presents for left open carpal tunnel release (revision).No changes to history and physical exam. Left wrist marked. Risks alternatives benefits discussed as well as postoperative restrictions and follow-up as well as narcotic counseling. The patient understands wished to proceed no further questions or concerns. MR#: [id number] Acct: [id number] Name: DOMINIK JOSEPH ANN Rep #: [id number] : 1985 Provider: Dr. Ashkan Ortiz MD Age/Sex: 38/F Location: [facility] Status: Signed Intake Vital Signs 10/12/2409:17 Height 5 ft 5 in Weight: 250 lb BMI 41.5 BP 138/96 H Blood Pressure Location Lt brachial Position Sitting Respiration 16 Pulse 44 L Pulse Source Monitor Temp 98.2 F Temp Source Temporal Pulse Oximetry (%) 98 Oxygen Delivery Method room air Intake Visit Reasons: LEFT WRIST Chief Complaint: left wrist Is patient in pain?: Yes (left wrist) Pain scale (1-10): 4 Allergies Penicillins Adverse Reaction (Severe, Verified 11/14/23 08:24) hives cefaclor (From Ceclor) Adverse Reaction (Intermediate, Verified 11/14/23 08:24) Hivesdoxycycline Adverse Reaction (Intermediate, Verified 11/14/23 08:24) Diarrhea Medications ?Medication ?Instructions ?Recorded ?Confirmed ?Type cetirizine 10 mg capsule (Zyrtec) 10 mg PO DAILY 02/15/20 10/13/23 History ibuprofen 800 mg tablet 800 mg PO Q8H PRN pain 7 days #30 03/13/21 10/13/23 Rx tabs dicyclomine 20 mg tablet 20 mg PO TID PRN abdominal pain 11/16/21 10/13/23 Rx #180 tabs pantoprazole 40 mg tablet,delayed 40 mg PO DAILY reflux #90 tabs 02/27/22 10/13/23 Rx release (Protonix) buspirone 30 mg tablet 30 mg PO BID 90 days #180 tabs 05/28/22 10/13/23 Rx cariprazine 1.5 mg capsule 1.5 mg PO DAILY 11/25/22 10/13/23 History (Vraylar) cyanocobalamin (vitamin B-12) 100 100 mcg PO DAILY 12/06/22 10/13/23 History mcg tablet (Vitamin B-12) propranolol 20 mg tablet 20 mg PO DAILY BP 06/05/23 10/13/23 History eletriptan 20 mg tablet (Relpax) See Rx Instructions .Route 09/29/23 10/13/23 Rx .COMPLEX #9 tabs erenumab-aooe 140 mg/mL 140 mg subcut QMONTH migraines #1 09/29/23 10/13/23 Rx subcutaneous auto-injector mL (Aimovig Autoinjector) ondansetron HCl 4 mg tablet 4 mg PO TID PRN nausea and 09/29/23 10/13/23 Rx vomiting #90 tabs tizanidine 4 mg tablet (Zanaflex) 8 mg (2 x 4 mg) PO QHS #60 tabs 09/29/23 10/13/23 Rx ubrogepant 100 mg tablet 100 mg PO .COMPLEX migraine 09/29/23 10/13/23 Rx headache #16 tabs PFSH Medical History (Updated 10/13/23 @ 10:29 by Mejia BARNHART, PA) Acute conjunctivitis, left eye History of Holter monitoring Generalized anxiety disorder Vitamin deficiency Bilateral carpal tunnel syndrome Numbness and tingling in both hands Positive Tinel's sign Right ear impacted cerumen History of irregular heartbeat History of echocardiogram Chest pain History of stress test Bipolar 1 disorder Essential hypertension Abnormal EKG Bradycardia Wears glasses Wears dentures Wears partial dentures Alcohol use Migraine headache Hx of vertigo Gastric reflux Former smoker Hypertension Tinnitus Nonscarring hair loss Screening for thyroid disorder Tinnitus, right GI bleed vision problem with headache Neuropathy IBS (irritable bowel syndrome) H/O emotional problems History of eating disorder Chronic neck and back pain Chronic diarrhea H/O hemorrhoids Surgical History History of carpal tunnel surgery of right wrist History of salpingectomy History of right salpingo-oophorectomy History of hysterectomy Hx of colonoscopy Hx of esophagogastroduodenoscopy history of upper and lower scope History of cholecystectomy H/O dilation and curettage History of tonsillectomy Family History Mother Hypertension Arthritis AnemiaFather Diabetes Anesthesia complicationBrother Brain cancer AnxietySister AsthmaGrandmother CVA (cerebral vascular accident)Daughter AnxietyGrandfather COPD (chronic obstructive pulmonary disease) CVA (cerebral vascular accident)Other Seizures Social History household members: spouse and children number of children: 3 current occupational status: employed current occupation: [employer] history of recent travel: No sexually active: Yes Smoking Status: Former smoker alcohol intake: never substance use type: does not use caffeine: No what type of physical activity do you participate in: running frequency: 3-4 times per week seatbelt use: always do you feel safe at home: Yes additional social history: - Donald LONG LEFT WRIST Details: This documentation accurately reflects the service provided and the decisions made by me, Dr. Ashkan Ortiz MD 11/14/23 0807. Part of today?s visit was documented by [ ], acting as scribe. DOMINIK JOSEPH is a 38 year old F here today for follow-up ultrasound and repeat nerve conduction studies for failure to improve after left endoscopic carpal tunnel release. Is now been about 5 months patient still does describe some numbness and tingling in the ring and middle fingers primarily. Supplemental Info [facility]/Neurology [address] [place] [address] MR#: [id number] Acct: [id number] Name: DOMINIK JOSEPH ANN Rep #: [id number] : 1985 38 From: Ramona Martin MD Referring Dr: Ashkan Ortiz MD Status: REG CLI Location: [facility] Date: 11/11/23 Sex: F C NCS and/or EMG Patient Report Ordering Doctor: Ashkan Ortiz DATE OF SERVICE: 11/11/23 Clinical Summary: 38 year old female patient with continued symptoms of numbness in the 3rd and 4th digits of the left hand s/p carpal tunnel release surgery in May 2023. Nerve Conduction Studies Summary: The left median sensory responses were normal. The left median-APB CMAP distal latency was prolonged. The left median motor conduction velocity was reduced in the forearm segment. Needle Examination Summary: Needle examination of select muscles of the left upper extremity was normal. 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 Multi Select Codes Neurology Neurology Interp Codes: 53477-06 Musc test done w/n test comp (interp) (1) and 49466-19 Nrv cndj test 7-8 studies (interp) Ultrasound of the left wrist radiologist impression flattening of the median nerve within the carpal tunnel and findings consistent with mild neuritis Postsurgical changes related to prior carpal tunnel release. There is fascicular prominence and perineural thickening of the median nerve which is flattened as it passes underneath the transverse carpal ligament. The median nerve cross-sectional area is slightly decreased measuring up to 0.16 cm? Coding Level of Care Code Off vis,est,level 3 Diagnoses Bilateral carpal tunnel syndrome G56.03 Assessment and Plan Assessment and Plan (1) Bilateral carpal tunnel syndrome: Status: Acute Plan: 38 year old F here today for follow-up ultrasound and repeat nerve conduction studies for failure to improve 5 months after left endoscopic carpal tunnel release. Ultrasound shows persistent flattening of the nerve neuritis as well as increased cross-sectional area and the nerve study show failure to improve as well possible worsening even. I think at this point the chance of improvement with more time is fairly minimal. I think given the persistent patient's symptoms as well as nerve conduction study findings and positive ultrasound results showing carpal tunnel syndrome that it would be reasonable to consider going forward with a revision carpal tunnel release. In this case I would perform this open with likely resection of the center portion of the ligament to decrease the chance of scarring and recurrence. We explained the pros and cons risk benefits going ahead with that and the patient consented for left open carpal tunnel release (revision). Results are more unpredictable with revision surgery. Pros and cons risks and benefits were discussed with the patient including but not limited to infection, pain, stiffness, bleeding, damage to surrounding structures, neurovascular injury, recurrence or retear, failure or wear of hardware or fixation, instability, fracture, deep vein thrombosis and pulmonary embolism, anesthetic risks, , patient dissatisfaction, need for further surgery and other risks. Patient understood and wished to proceed with surgery, and signed the informed consent documentation. Plan Details Goals & Barriers: Goals Decrease pain Decrease spasm Improve workability Ortho Exam Right Wrist/Hand Skin/Wound: No Swelling and No Ecchymosis Left Wrist/Hand Skin/Wound: Yes CDI, Yes healed, No Swelling, No Ecchymosis, Yes nail intact, Yes capillary refill normal and No erythema Sensation: Radial: I, Ulnar: I and Median: D [facility] Medical History (Updated 11/24/23 @ 10:46 by Mercy Germain) Cardiology follow-up encounter Acute conjunctivitis, left eye History of Holter monitoring Generalized anxiety disorder Vitamin deficiency Bilateral carpal tunnel syndrome Numbness and tingling in both hands Positive Tinel's sign Right ear impacted cerumen History of irregular heartbeat History of echocardiogram Chest pain History of stress test Bipolar 1 disorder Essential hypertension Abnormal EKG Bradycardia Wears glasses Wears dentures Wears partial dentures Alcohol use Migraine headache Hx of vertigo Gastric reflux Former smoker Hypertension Tinnitus Nonscarring hair loss Screening for thyroid disorder Tinnitus, right GI bleed vision problem with headache Neuropathy IBS (irritable bowel syndrome) H/O emotional problems History of eating disorder Chronic neck and back pain Chronic diarrhea H/O hemorrhoids Home Medications ?Medication ?Instructions ?Recorded ?Last Taken ?Type cetirizine 10 mg capsule (Zyrtec) 10 mg PO DAILY 02/15/20 Unknown History ibuprofen 800 mg tablet 800 mg PO Q8H PRN pain 7 days #30 03/13/21 Unknown Rx tabs dicyclomine 20 mg tablet 20 mg PO TID PRN abdominal pain 11/16/21 Unknown Rx #180 tabs pantoprazole 40 mg tablet,delayed 40 mg PO DAILY reflux #90 tabs 02/27/22 06/11/23 05:00 Rx release (Protonix) buspirone 30 mg tablet 30 mg PO BID 90 days #180 tabs 05/28/22 11/26/23 Rx cariprazine 1.5 mg capsule 1.5 mg PO DAILY 11/25/22 11/26/23 History (Vraylar) cyanocobalamin (vitamin B-12) 100 100 mcg PO DAILY 12/06/22 Unknown History mcg tablet (Vitamin B-12) propranolol 20 mg tablet 20 mg PO DAILY BP 06/05/23 11/26/23 History eletriptan 20 mg tablet (Relpax) See Rx Instructions .Route 08/12/24 Unknown Rx .COMPLEX #9 tabs erenumab-aooe 140 mg/mL 140 mg subcut QMONTH migraines #1 09/29/23 Unknown Rx subcutaneous auto-injector mL (Aimovig Autoinjector) ondansetron HCl 4 mg tablet 4 mg PO TID PRN nausea and 09/29/23 Unknown Rx vomiting #90 tabs tizanidine 4 mg tablet (Zanaflex) 8 mg (2 x 4 mg) PO QHS #60 tabs 09/29/23 Unknown Rx ubrogepant 100 mg tablet 100 mg PO .COMPLEX migraine 09/29/23 Unknown Rx headache #16 tabs Allergy/AdvReac Type Severity Reaction Status Date / Time Penicillins AdvReac Severe hives Verified 11/26/23 12:00 cefaclor (From Ceclor) AdvReac Intermediate Hives Verified 11/26/23 12:00 doxycycline AdvReac Intermediate Diarrhea Verified 11/26/23 12:00 Family History Mother Hypertension Arthritis Anemia Father Diabetes Anesthesia complication Brother Brain cancer Anxiety Sister Asthma Grandmother CVA (cerebral vascular accident) Daughter Anxiety Grandfather COPD (chronic obstructive pulmonary disease) CVA (cerebral vascular accident) Other Seizures Surgical History (Updated 11/24/23 @ 10:46 by Mercy Germain) History of carpal tunnel surgery of left wrist History of carpal tunnel surgery of right wrist History of salpingectomy History of right salpingo-oophorectomy History of hysterectomy Hx of colonoscopy Hx of esophagogastroduodenoscopy history of upper and lower scope History of cholecystectomy H/O dilation and curettage History of tonsillectomy Social History household members: spouse and children number of children: 3 current occupational status: employed current occupation: [employer]- [employer] history of recent travel: No sexually active: Yes Smoking Status: Former smoker alcohol intake: never substance use type: does not use caffeine: No what type of physical activity do you participate in: running frequency: 3-4 times per week seatbelt use: always do you feel safe at home: Yes additional social history: - Donald Vital Signs Vital Signs Vital Signs: 11/26/23 12:04 11/26/23 12:04 11/26/23 13:06 Temperature 98.4 F 98.4 F Temperature Source Temporal Pulse Rate 55 L 55 L Respiratory Rate 18 18 Respiratory Pattern Normal Blood Pressure 136/64 H 136/64 H Blood Pressure Mean 88 Blood Pressure Source Monitor Blood Pressure Position Semi-Fowlers Blood Pressure Location Left Arm Pulse Ox 100 100 Oxygen Delivery Method Room Air Room Air Weight Weight: 262 lb 5.601 oz Body Mass Index (BMI) 43.6
[2023-11-26] MEDS: Cefazolin 2 GM in 0.9% Normal Saline (100mL Bag) 100 ML IV (13:22)
[2023-11-26] MEDS: Bupivacaine 0.25% 30 ML Vial (13:36)
--- NOTE | 2023-11-26 13:57 | DCINST_ITS ---
Discharge Instructions Diet Discharge Diet: No restrictions Activity Ice area for (Minutes): 10 Lifting Restrictions: no heavy lifting or gripping Keep extremity elevated above heart level: Operative Extremity Dressing / Incision Call your doctor if your incision/area has: Continuous Slow Oozing, Sudden Increased Bleeding, Increased Pain/ Swelling, Increased Redness, Foul Smelling Discharge and Swelling at the incision site Call your doctor if you observe: Fever of 101 or Higher, Coldness, Increased Pain and Numbness or Tingling Remove Dressing in: leave in place till F/U Cleanse incision/area with: Do not get Incision Wet Follow Up Care Please Follow Up With: Ashkan Ortiz MD When: 2 days Test Results: Test results from this visit will be discussed in further detail at your follow- up appointment, if applicable. Discharge Plan Admission Attending Provider: Ashkan Ortiz Primary Care Provider: Angus Batista [facility] Instructions Print Language: Gibraltarian Discharge Orders/Prescriptions Prescriptions: New oxycodone-acetaminophen [Endocet] 5-325 mg tablet 1 tab PO Q4H MDD 6 PRN (Reason: pain) 3 Days Qty: 14 0RF No Action dicyclomine 20 mg tablet 20 mg PO TID PRN (Reason: abdominal pain) Qty: 180 3RF pantoprazole [Protonix] 40 mg tablet,delayed release (DR/EC) 40 mg PO DAILY Qty: 90 3RF Vraylar 1.5 mg capsule 1.5 mg PO DAILY eletriptan [Relpax] 20 mg tablet See Rx Instructions .ROUTE .COMPLEX Qty: 9 2RF Rx Instructions: Take 1 tablet PO every 2 hours as needed for headache up to 2 tablets per day Aimovig Autoinjector 140 mg/mL auto-injector 140 mg subcut QMONTH Qty: 1 11RF ondansetron HCl 4 mg tablet 4 mg PO TID PRN (Reason: nausea and vomiting) Qty: 90 1RF tizanidine [Zanaflex] 4 mg tablet 8 mg PO QHS Qty: 60 11RF ubrogepant 100 mg tablet 100 mg PO .COMPLEX Qty: 16 4RF Rx Instructions: Take 1 tablet orally every 2 hours as needed for headache up to 2 tablets daily Zyrtec 10 mg capsule 10 mg PO DAILY ibuprofen 800 mg tablet 800 mg PO Q8H PRN (Reason: pain) 7 Days Qty: 30 0RF cyanocobalamin (vitamin B-12) [Vitamin B-12] 100 mcg tablet 100 mcg PO DAILY propranolol 20 mg tablet 20 mg PO DAILY buspirone 30 mg tablet 30 mg PO BID 90 Days Qty: 180 1RF Referrals / Follow Up: Ashkan Ortiz MD [Med Staff - Active Staff] - Angus Batista, ASSOCIATE DIRECTOR OF SALES-C [Primary Care Provider] - Disposition Disposition (needs filled in before D/C Order can be placed): Home, Self Care
--- NOTE | 2023-11-26 14:02 | PCM.POST.ANE ---
Anesthesia: Postop Eval I Current Vital Signs Temperature: 97 F Pulse Rate: 72 Blood Pressure: 112/54 Respiratory Rate: 16 Pulse Ox: 100 Oxygen Delivery Method: Room Air Assessment Airway patent: Yes Spontaneous unlabored respirations: Yes Mental status: Awake and Calm nausea: No Vomiting: No Anesthesia Complication: No Fluid Hydration Crystalloid volume administer (ml): 10 Total IV fluid infused: 10 Progress Note Anesthesia document: Postop Eval 1 completed: Yes
--- NOTE | 2023-11-26 14:03 | OP.PCM_ITS ---
Problems Associated Problem List Diagnoses (1) Bilateral carpal tunnel syndrome: Report of Operation Date of Procedure: 11/26/23 Pre-Operative Diagnosis: L carpal tunnel syndrome recurrence Post-Operative Diagnosis: same Surgery/Procedure Performed:: L open carpal tunnel release (revision) Surgeon: Ashkan Ortiz Type of Anesthesia: Local MAC Anesthesiologist: Fei Anaya Estimated Blood Loss (mL): 10 Description of Procedure: Patient brought to the operating room theater. Placed supine on the table. General anesthesia induced. 2g iv ancef Administered prior to start of the procedure. Bed turned 90 degrees. Arm table used. Tourniquet applied to the upper extremity appropriately padded. All bony prominences padded. SCDs on the legs. Upper extremity prepped and draped in the usual sterile fashion with chlorhexidine-based prep solution allowing over 3 minutes drying time prior to draping. Preoperative timeout performed to confirm the site patient and the surgery. Began by elevating the limb inflated the tourniquet to 250 mmHg. Made a longitudinal incision over the carpal tunnel in line with the fourth digit. Carried the dissection down through skin and subcutaneous tissue achieved meticulous hemostasis. Incised the palmar fascia in line with the skin incision. Incised the transverse carpal tunnel ligament in line with the skin incision. There was moderate amount of scar tissue at this level. I excised a central area of about 2 mm from the center aspect of the carpal tunnel ensuring that there was no accessory branch of the median nerve crossing. Median nerve did appear irritated but intact. I performed the release all the way to the distal end of the carpal tunnel ligament as well as proximally to the antebrachial fascia. This was a nice wide release. Wound thoroughly irrigated. Ensured that there was no touching of the leaflets even with taking away the retractors. Tourniquet let down meticulous hemostasis achieved. Subcutaneous tissue closed with 2-0 Vicryl suture and skin with 3-0 Monocryl. 5 cc of 0.25 percent bupivacaine was instilled in around the soft tissues. Skin cleaned with wet dry dressing followed application of Steri-Strips Adaptic 4 x 4 gauze and Joanne wrap. Patient woken up from the general acetic transfer off the operating table taken to postanesthetic care unit in stable condition. All sponge needle instrument counts were correct no complications plan to the patient gentle range of motion of the hand and wrist follow-up in the office this week discharged home according to day surgery criteria. hola physician assistant psychiatry retracting, positioning, dressing cpt [id number] Procedure Start Time: 13:35 Procedure Stop Time: 13:55 Complications none Admit VTE Documentation VTE Present on Admission: No VTE Mechan Device Prophylaxis: SCD's VTE Pharm Prophylaxis ordered?: No Reason prophylaxis not ordered:: Treatment Not Indicated Procedures Musculoskeletal [id number]: Other Procedure See Report
[2023-11-26] MEDS: HYDROcodone Bitartrate/Apap 5/325 Tablet PO (14:49)
--- NOTE | 2023-11-26 14:49 | SUR.PHASEII ---
PATIENT HAD SOME LOCALIZED BURNING/MILD ITCHING WHEN ZOFRAN AND MORPHINE WERE GIVEN IN PACU. WHEN I SCANNED HER NORCO IT FLAGGED THIS BECAUSE AN ALLERGY TO MORPHINE WAS PUT IN. PATIENT SAID THAT SHE HAS TAKEN THE NORCO WITHOUT ANY DIFFICULTY AND SAID THAT WHAT SHE EXPERIENCE SHE THOUGHT WAS JUST VEIN IRRITATION. MEDICATION OVER RIDDEN AND GIVEN TO PATIENT WITH THE INSTRUCTIONS IF SHE TAKES HER PAIN MEDICATION AT HOME AND HAS A REACTION SHE SHOULD STOP IT AND CALL HER DOCTOR.
--- NOTE | 2023-11-26 15:17 | POSTOPAN2_ITS ---
Anesthesia Postop Eval I Sum Postop Eval Completion status Anesthesia document: Postop Eval 1 completed: Yes Anesthesia Postop Eval I Summary Anesthesia Postop Eval I Summary: Anesthesia Postop Eval I: Assessment Summary Airway patent Yes 11/26/23 14:03 NIGHT SHIFT [email or web address] Spontaneous unlabored Yes 11/26/23 14:03 NIGHT SHIFT [email or web address] respirations Mental status Awake,Calm 11/26/23 14:03 NIGHT SHIFT [email or web address] nausea No 11/26/23 14:03 NIGHT SHIFT [email or web address] Vomiting No 11/26/23 14:03 NIGHT SHIFT [email or web address] Anesthesia Postop Eval I: Fluid Summary Crystalloid volume administer 10 11/26/23 14:03 NIGHT SHIFT [email or web address] (ml) Colloids volume administered ( ml) Blood Product volume administered (ml) Total IV fluid infused 10 11/26/23 14:03 NIGHT SHIFT [email or web address] Anesthesia Postop Eval I: Summary Notes Anesthesia Complication No 11/26/23 14:03 NIGHT SHIFT [email or web address] Anesthesia Complication Comment: Post-operative progress note Anesthesia: Postop Eval II Evaluation Mental status: Awake and Calm Pain Level: 1 nausea: No Vomiting: No Complications Anesthesia Complication: No
--- NOTE | 2023-11-26 15:17 | PCM.POSTANE2 ---
Anesthesia Postop Eval I Sum Postop Eval Completion status Anesthesia document: Postop Eval 1 completed: Yes Anesthesia Postop Eval I Summary Anesthesia Postop Eval I Summary: Anesthesia Postop Eval I: Assessment Summary Airway patent Yes 11/26/23 14:03 [email or web address] Spontaneous unlabored Yes 11/26/23 14:03 [email or web address] respirations Mental status Awake,Calm 11/26/23 14:03 [email or web address] nausea No 11/26/23 14:03 [email or web address] Vomiting No 11/26/23 14:03 [email or web address] Anesthesia Postop Eval I: Fluid Summary Crystalloid volume administer 10 11/26/23 14:03 [email or web address] (ml) Colloids volume administered ( ml) Blood Product volume administered (ml) Total IV fluid infused 10 11/26/23 14:03 [email or web address] Anesthesia Postop Eval I: Summary Notes Anesthesia Complication No 11/26/23 14:03 [email or web address] Anesthesia Complication Comment: Post-operative progress note Anesthesia: Postop Eval II Evaluation Mental status: Awake and Calm Pain Level: 1 nausea: No Vomiting: No Complications Anesthesia Complication: No
== END 2023-11-26 15:07 | disposition home or self-care (01) ==
LOC: SDC 11:38 → AC 11:40
PROVIDERS: PCP Nurse Practitioner Family; Referring Provider Orthopaedic Surgery Sports Medicine; Visit Provider Orthopaedic Surgery Sports Medicine
PROC: (CPT 64721; principal; 2023-11-26 12:55)
DX: G56.03 Carpal tunnel syndrome, bilateral upper limbs (principal); Z87.891 Personal history of nicotine dependence; I10 Essential (primary) hypertension; Z79.899 Other long term (current) drug therapy; K21.9 Gastro-esophageal reflux disease without esophagitis
CPT/HCPCS: 64721; 01810; A4216; J2405

== ENCOUNTER 2024-03-29 18:56 | Emergency (ER) | payer OTHER, SELFPAY ==
[2024-03-29 19:00] VITALS: BP 144/97; PULSE 86; RESP 18; TEMP 36.2; O2SAT 96; BMI 43.2
--- NOTE | 2024-03-29 19:13 | US_ITS ---
PROCEDURE: VENOUS DUPLEX IMAG/LIMITED/UNI REASON FOR EXAM: Left leg pain. Burning, numbness. TECHNIQUE: Venous duplex imaging of the left lower extremities obtained as well as the left common femoral vein. COMPARISON: None. FINDINGS: Left common femoral, proximal femoral, mid femoral, distal femoral, and popliteal veins demonstrate normal compressibility, spontaneity, and augmentation as well as color flow. Left posterior tibial and left peroneal veins demonstrate normal compressibility. Right common femoral vein demonstrates normal compressibility, spontaneity, augmentation, and color flow. No evidence of DVT is identified. US/Venous Duplex Imag/Limited/Uni IMPRESSION: No evidence of DVT in the left lower extremity. Reading Location: [facility]
--- NOTE | 2024-03-29 21:59 | ED.VIS.LOWEX ---
HPI History of Present Illness Chief Complaint: Lower Extremity Injury Detail of Chief Complaint: Left upper thigh pain/burning Informant: patient Narrative Narrative: Patient presents with left upper thigh pain and burning that started several months ago. Worse over the last couple of days. Called primary care physician and was told to come to the ER to be evaluated for DVT. She denies recent travel or surgery. She denies chest pain or significant shortness of breath. She does state that she was a little short of breath when she got to the ER but that is resolved. No prior history of DVT. Denies injury to her leg. Denies back pain. [facility] Medical History Cardiology follow-up encounter Acute conjunctivitis, left eye History of Holter monitoring Generalized anxiety disorder Vitamin deficiency Bilateral carpal tunnel syndrome Numbness and tingling in both hands Positive Tinel's sign Right ear impacted cerumen History of irregular heartbeat History of echocardiogram Chest pain History of stress test Bipolar 1 disorder Essential hypertension Abnormal EKG Bradycardia Wears glasses Wears dentures Wears partial dentures Alcohol use Migraine headache Hx of vertigo Gastric reflux Former smoker Hypertension Tinnitus Nonscarring hair loss Screening for thyroid disorder Tinnitus, right GI bleed vision problem with headache Neuropathy IBS (irritable bowel syndrome) H/O emotional problems History of eating disorder Chronic neck and back pain Chronic diarrhea H/O hemorrhoids Home Medications ?Medication ?Instructions ?Recorded ?Last Taken ?Type cetirizine 10 mg capsule (Zyrtec) 10 mg PO DAILY 02/15/20 Unknown History ibuprofen 800 mg tablet 800 mg PO Q8H PRN pain 7 days #30 03/13/21 Unknown Rx tabs dicyclomine 20 mg tablet 20 mg PO TID PRN abdominal pain 11/16/21 Unknown Rx #180 tabs pantoprazole 40 mg tablet,delayed 40 mg PO DAILY reflux #90 tabs 02/27/22 06/11/23 05:00 Rx release (Protonix) buspirone 30 mg tablet 30 mg PO BID 90 days #180 tabs 05/28/22 11/26/23 Rx cariprazine 1.5 mg capsule 1.5 mg PO DAILY 11/25/22 11/26/23 History (Vraylar) cyanocobalamin (vitamin B-12) 100 100 mcg PO DAILY 12/06/22 Unknown History mcg tablet (Vitamin B-12) propranolol 20 mg tablet 20 mg PO DAILY BP 06/05/23 11/26/23 History eletriptan 20 mg tablet (Relpax) See Rx Instructions .Route 09/29/23 Unknown Rx .COMPLEX #9 tabs erenumab-aooe 140 mg/mL 140 mg subcut QMONTH migraines #1 09/29/23 Unknown Rx subcutaneous auto-injector mL (Aimovig Autoinjector) ondansetron HCl 4 mg tablet 4 mg PO TID PRN nausea and 09/29/23 Unknown Rx vomiting #90 tabs tizanidine 4 mg tablet (Zanaflex) 8 mg (2 x 4 mg) PO QHS #60 tabs 09/29/23 Unknown Rx ubrogepant 100 mg tablet 100 mg PO .COMPLEX migraine 09/29/23 Unknown Rx headache #16 tabs Allergy/AdvReac Type Severity Reaction Status Date / Time Penicillins AdvReac Severe hives Verified 03/29/24 19:00 cefaclor ([facility]) AdvReac Intermediate Hives Verified 03/29/24 19:00 doxycycline AdvReac Intermediate Diarrhea Verified 03/29/24 19:00 Family History Mother Hypertension Arthritis Anemia Father Diabetes Anesthesia complication Brother Brain cancer Anxiety Sister Asthma Grandmother CVA (cerebral vascular accident) Daughter Anxiety Grandfather COPD (chronic obstructive pulmonary disease) CVA (cerebral vascular accident) Other Seizures Surgical History History of carpal tunnel surgery of left wrist History of carpal tunnel surgery of right wrist History of salpingectomy History of right salpingo-oophorectomy History of hysterectomy Hx of colonoscopy Hx of esophagogastroduodenoscopy history of upper and lower scope History of cholecystectomy H/O dilation and curettage History of tonsillectomy Social History household members: spouse and children number of children: 3 current occupational status: employed current occupation: [employer] history of recent travel: No sexually active: Yes Smoking Status: Former smoker alcohol intake: never substance use type: does not use caffeine: No what type of physical activity do you participate in: running frequency: 3-4 times per week seatbelt use: always do you feel safe at home: Yes additional social history: - Donald BONILLA ROS ED Review of Systems ROS Unobtainable: other Constitutional Constitutional ED: Reports lethargy; Denies chills, fever(s), sweats or weight loss Eyes Eyes: Denies blurry vision, change in vision or diplopia ENT ENT ED: Denies rhinorrhea or sore throat Cardiovascular Cardiovascular: Denies chest pain, orthopnea or racing heartbeat Respiratory/Chest Respiratory/Chest: Denies cough, dyspnea, dyspnea on exertion, orthopnea or sputum Gastrointestinal Gastrointestinal: Denies abdominal pain, diarrhea, nausea or vomiting Genitourinary Genitourinary ED: Denies dysuria, hematuria or urinary frequency Musculoskeletal Musculoskeletal: Reports other Details: Left upper thigh pain/burn ; Denies arthralgias, back pain, myalgias or neck pain Integumentary Denies abscess, Abrasions or rash Neurologic Neurologic: Denies headache(s) or weakness Psychiatric Psychiatric: Denies anxiety, depression or suicidal thoughts Endocrine Endocrinology: Denies polydipsia, polyphagia or polyuria Hematologic/Lymphatic Hematologic/Lymphatic: Denies easy bleeding, easy bruising or lymphadenopathy Allergic/Immunologic Allergic/Immunologic ED: Denies mouth swelling, tongue swelling or urticaria EXAM Physical Exam Const Vital Signs: 03/29/24 19:00 Temperature 97.1 F L Temperature Source Temporal Pulse Rate 86 Respiratory Rate 18 Blood Pressure 144/97 H Blood Pressure Mean 112 Pulse Ox 96 Oxygen Delivery Method Room Air Positive well nourished and well developed General Appearance ED: well developed and NAD HEENT Reports TM's clear and moist mucous membranes normocephalic and atraumatic; Negative for trauma or tenderness Tympanic Membrane ED: Yes TM's clear Eyes PERRL and EOMs intact bilaterally General Eye ED: Negative for pale conjunctiva or scleral icterus Neck no lymphadenopathy, supple and no JVD General: Negative for tenderness Chest Wall inspection of chest normal and palpation of chest normal Chest: Negative for tenderness Resp normal respiratory effort and clear to auscultation bilaterally Effort and Inspection: Negative for respiratory distress or pain with movement Auscultation: Negative for rhonchi, wheezes or diminished lung sounds Cardio regular rate, regular rhythm, S1 normal heart sound, S2 normal heart sound and no murmurs Peripheral Pulses: pulses 2+ throughout GI normal to inspection, nondistended, normoactive bowel sounds, soft to palpation, non-tender, non-distended and no masses Back/Spine no CVA tenderness and no thoracic nor lumbar tenderness Extremity Extremity Narrative: Left leg-no ropes or cords palpated. No significant edema noted. She is neurovascularly intact distally. Mild upper anterior thigh discomfort on palpation but there is no ecchymosis or bruising no masses palpated. General Extremety ED: Negative for edema General Extremity: Negative for edema Neuro oriented x3, CN's II-XII intact bilaterally, no sensory deficits noted and gait normal Sensorium / Orientation: awake, alert, oriented to person, oriented to place and oriented to time Motor Exam: strength 5/5 throughout and strength abnormal Psych mental status grossly normal Skin no rashes or lesions noted and no wounds MDM MDM MDM Narrative Medical decision making narrative: Patient presents with left upper thigh pain and burning sensation that she has had for several months. Emergency department quite busy with however nurses ordered a venous Doppler to rule out DVT by protocol and this was negative for DVT. Clinically I suspect meralgia paresthetica as the etiology of her symptoms due to compression of lateral femoral cutaneous nerve. Patient advised to use ibuprofen or Tylenol for discomfort. Will refer to orthopedics for follow-up. Radiography Diagnostic Testing: Clinical Impression(s) from Imaging Studies Venous Duplex 03/29/24 19:13 IMPRESSION: No evidence of DVT in the left lower extremity. Reading Location: [facility] Discharge Plan Triage Chief Complaint: Lower Extremity Injury ED Provider: Richi Saucedo Dx/Rx/DC Orders Clinical Impression: Meralgia paresthetica, Neuropathy Instructions: ED Neuropathy, Peripheral Prescriptions: No Action dicyclomine 20 mg tablet 20 mg PO TID PRN (Reason: abdominal pain) Qty: 180 3RF pantoprazole [Protonix] 40 mg tablet,delayed release (DR/EC) 40 mg PO DAILY Qty: 90 3RF Vraylar 1.5 mg capsule 1.5 mg PO DAILY eletriptan [Relpax] 20 mg tablet See Rx Instructions .ROUTE .COMPLEX Qty: 9 2RF Rx Instructions: Take 1 tablet PO every 2 hours as needed for headache up to 2 tablets per day Aimovig Autoinjector 140 mg/mL auto-injector 140 mg subcut QMONTH Qty: 1 11RF ondansetron HCl 4 mg tablet 4 mg PO TID PRN (Reason: nausea and vomiting) Qty: 90 1RF tizanidine [Zanaflex] 4 mg tablet 8 mg PO QHS Qty: 60 11RF ubrogepant 100 mg tablet 100 mg PO .COMPLEX Qty: 16 4RF Rx Instructions: Take 1 tablet orally every 2 hours as needed for headache up to 2 tablets daily Zyrtec 10 mg capsule 10 mg PO DAILY ibuprofen 800 mg tablet 800 mg PO Q8H PRN (Reason: pain) 7 Days Qty: 30 0RF cyanocobalamin (vitamin B-12) [Vitamin B-12] 100 mcg tablet 100 mcg PO DAILY propranolol 20 mg tablet 20 mg PO DAILY buspirone 30 mg tablet 30 mg PO BID 90 Days Qty: 180 1RF Primary Care Provider: Angus Batista Referrals: Ashkan Ortiz MD [Med Staff - Active Staff] - 3-5 Days Angus Batista, SENIOR PRINCIPAL SOFTWARE ENGINEER-C [Primary Care Provider] - Print Language: Welsh Disposition Disposition: Home, Self Care
[2024-03-29 22:16] VITALS: BP 140/92; PULSE 89; RESP 16; TEMP 36.6; O2SAT 99
== END 2024-03-29 22:17 | disposition home or self-care (01) ==
PROVIDERS: Emergency Provider Emergency Medicine; PCP Nurse Practitioner Family; Visit Provider Emergency Medicine
DX: G57.12 Meralgia paresthetica, left lower limb (principal); G62.9 Polyneuropathy, unspecified; Z87.891 Personal history of nicotine dependence; I10 Essential (primary) hypertension; K21.9 Gastro-esophageal reflux disease without esophagitis
CPT/HCPCS: 93971; 99282

== ENCOUNTER → 2024-04-30 | Outpatient (CLI) | payer OTHER, SELFPAY ==
--- NOTE | 2024-04-30 09:18 | US_ITS ---
PROCEDURE: BREAST LIMITED UNILATERAL REASON FOR EXAM: BREAST LUMP Palpable lump in the upper inner quadrant of the right breast. COMPARISON: Comparison is made with prior mammogram done earlier in the day. TECHNIQUE: Targeted ultrasound of the right breast was performed. FINDINGS: RIGHT: Ultrasound targeted to the upper inner quadrant of the right breast. The breast tissue appears sonographically normal. No cyst, solid mass, or suspicious shadowing. US/Breast Limited Unilateral IMPRESSION: No sonographic abnormality is seen. BI-RADS 1: NEGATIVE. RECOMMEND ANNUAL MAMMOGRAPHIC SCREENING. Reading Location: [place] [id number]
--- NOTE | 2024-04-30 09:24 | BI_ITS ---
PROCEDURE: DIAG MAMM W/CAD, BILAT REASON FOR EXAM: Palpable lump in the upper anterior central aspect of the right breast. TECHNIQUE: Bilateral diagnostic digital breast tomosynthesis with 2D and 3D images. Computer aided detection. COMPARISON: Prior exam(s) dating back to February 27, 2023.. FINDINGS: The breasts are heterogeneously dense which may obscure small masses. Stable asymmetry of breast tissue were more breast tissue is seen in the upper-outer quadrant of the left breast as compared to the right side. A tissue clip marker is once again seen in the upper central portion of the left breast. BI/DIAG MAMM W/CAD, BILAT IMPRESSION: Stable examination. With the patient's history of palpable lump in the right b reast, targeted sonographic correlation recommended. BI-RADS 0: INCOMPLETE - NEED ADDITIONAL IMAGING EVALUATION. Follow-up code: Ultrasound Recommended Reading Location: [place] [id number]
== END | disposition home or self-care (01) ==
LOC: OPBI 09:16
PROVIDERS: PCP Nurse Practitioner Family; Referring Provider Advanced Practice Midwife; Visit Provider Advanced Practice Midwife
DX: N63.10 Unspecified lump in the right breast, unspecified quadrant (principal); N64.4 Mastodynia
CPT/HCPCS: 76642; 77062; 77066; G0279

== ENCOUNTER 2024-05-11 11:00 | Outpatient (RCR) | payer OTHER, SELFPAY ==
--- NOTE | 2024-04-09 08:53 | HP.PTEVAL ---
Patient's Visit Information Visit Information Visit Information: DOMINIK JOSEPH is a 38 year old F referred to Physical Therapy by GEOVANNI Johnson, RN NEUROSURGICAL-C with a diagnosis of meralgia paresthetica L leg. Date of Evaluation: 04/09/24 Physical Therapist: Paula Jang MPT Visit Plan Frequency: 1x/Week Duration: 6 Weeks Plan: See effectiveness of hip flexor stretching 1X/ week for L hip flexor/Quad stretching, may try foam rolling if not painful, bridges, Trunk stretches, core stability and hip strength with HEP HEP: prone with strap hip flexor stretch and supine off the edge of the mat table stretching Subjective Subjective: For the last couple months intermittent numbness from L knee to groin and then started with burning. She saw Primary last week and he wants PT for 6 weeks and if that does not help to see an ortho. She got a new job that she is walking more. Her pain is worse with walking. The numbness is constant but the burning is intermitted. Sitting does not cause burning but standing and walking increases it. Doppler was negative. She is not having any back or hip pain. She can not lay on her R hip very long as the numbness gets worse. It will sometimes wake her up at night. Pain L leg pain: Pain Intensity (Out of 10): 0 Objective Objective: Gait: walks with decrease stance time on the R LE and smaller step length Pt has increase L thigh burning with heel and toe raises Trunk AROM: flexion 100%, ext 100%, SB B 100%, ROT B 75% LE MMT: R hip flex 9.3 and L 9.6 R knee ext 19.1 and L 20.4 R knee flex 11.7 and L 9 Pt had normal stretch feeling in B piriformis muscles and hamstring Pt had increase burning with knee to chest on the L and with hip flexor/Quad stretching on the L (both off the edge of the mat table and prone with strap) Balance/Special Test Scores Lower Extremity Functional Score: 70 Goals Goal 1:: I HEP Goal Time Frame: 6-8 Weeks Goal 2:: Increase hip flexor/Quad flexibility on the L. Goal Time Frame: 6-8 Weeks Goal 3:: Decrease freq/intensity of L anterior Quad burning with standing or walking by 50% Goal Time Frame: 6-8 Weeks Rehabilitation Potential Rehabilitation Potential: Good Anticipated Interventions Patient/Client Instruction: Educate patient on: Condition and Plan of Care For the Purpose of:: To decrease pain, To increase ROM, To improve nutrient delivery to tissue, To improve muscle performance and motor function, To improve ability to perform ADL's, To increase tolerance to activity/condition/position, To improve performance and independence with ADL's, To improve gait and locomotor functions, To improve health of tissue, To decrease soft tissue restriction and To increase flexibility/ROM Therapeutic Exercise to Include: Strength training, Postural training, Flexibilty training, Gait and locomotor training, Neuromotor development, Passive ROM, Active ROM and Dynamic Lumbar Stabilization For the Purpose of:: To decrease pain, To increase ROM, To improve nutrient delivery to tissue, To improve muscle performance and motor function, To improve ability to perform ADL's, To increase tolerance to activity/condition/position, To improve performance and independence with ADL's, To improve gait and locomotor functions, To improve health of tissue, To decrease soft tissue restriction and To increase flexibility/ROM Functional Training to Include: Gait training For the Purpose of:: To improve gait and locomotor functions Manual Therapy Techniques to Include: Passive ROM and Soft tissue mobilization For the Purpose of:: To decrease pain, To increase ROM, To improve nutrient delivery to tissue, To improve muscle performance and motor function, To improve ability to perform ADL's, To increase tolerance to activity/condition/position, To improve performance and independence with ADL's, To improve gait and locomotor functions, To improve health of tissue, To decrease soft tissue restriction and To increase flexibility/ROM Text: Thank you for the opportunity to evaluate your patient. For Medicare and Medicare HMO plans, please review the plan of care and approve it. It will need to be FAXED BACK to us at [phone] for Medicare purposes. For Medicare only, by signing this I certify the plan of care. Please let me know if there are questions or concerns regarding this plan of care. Physician Signature: Date:
--- NOTE | 2024-05-11 12:03 | HP.PTDCSUM_ITS ---
Discharge Summary D/C summary: It has been my pleasure to treat DOMINIK JOSEPH referred by Ledy Foley [facility] [employer] [employer], with the diagnosis of meralgia paresthetica L leg for a total of 6 visit(s). Discharge Date: 05/11/24 Please see the following information for a summary of their discharge status. Subjective Subjective: Pt needs to schedule an appt with Orthopedics. She is no better. She is worse when she is on her feet and especially when at work on feet for 10 hours (17,000 steps yesterday). The numbness is always there. The burning is not as bad sometimes. Nothing here in PT has really helped. She reports that heat helps and she does do heat at home. Pain L leg pain: Pain Intensity (Out of 10): 4 Overall Improvement % Improvement: 0 Objective Objective/Function: L hip flexibility is improved on the L Pt has pain with prone stretching of the L hip flexor.. Goals Goal 1:: I HEP Goal Progress: Goal Met Goal 2:: Increase hip flexor/Quad flexibility on the L. Goal Progress: Goal Met Goal 3:: Decrease freq/intensity of L anterior Quad burning with standing or walking by 50% Goal Progress: Not Progressing Plan Plan: DC PT back to no improvement in pain or numbness D/C Information Discharge Comments: no improvement d/c sentence: If there are questions or concerns regarding this patient's physical therapy, please feel free to call me at [phone]. Thank you for the referral of this patient. Sincerely, Paula Jang, MPT Balance/Gait/Functional tests Balance/Special Test Scores Lower Extremity Functional Score: 67 Improvement % Improvement: 0
== END 2024-05-11 19:00 | disposition home or self-care (01) ==
LOC: PT 11:00
PROVIDERS: PCP Nurse Practitioner Family
DX: G57.12 Meralgia paresthetica, left lower limb (principal)
CPT/HCPCS: 97110; 97161; 97530

== ENCOUNTER → 2024-05-11 | Outpatient (CLI) | payer OTHER, SELFPAY ==
--- NOTE | 2024-05-11 13:54 | RAD_ITS ---
PROCEDURE: HIP, UNI W/ PELVIS 2-3 VIEWS 05/11/2024 REASON FOR EXAM: PAIN TECHNIQUE: 2 views of the left hip. AP Pelvis. 3 images COMPARISON: None available FINDINGS: No fracture or dislocation. The joint spaces appear within limits. Symmetric appearing SI joints and pubic symphysis appear within limits. Vague asymmetric sclerosis at the right pubis may be degenerative. RAD/HIP, UNI W/ Pelvis 2-3 Views IMPRESSION: Left hip appears within limits. Vague asymmetric sclerosis at the right pubis may be degenerative, nonspecific. Reading Location: [id number]
--- NOTE | 2024-05-11 13:54 | RAD_ITS ---
EXAM: Two views lumbosacral spine. CLINICAL HISTORY: Thigh numbness. COMPARISON: None TECHNIQUE: Two views of the lumbosacral spine. FINDINGS: Two views of the lumbosacral spine were obtained and demonstrate 5 lumbar type vertebral bodies below the last set of paired ribs. The vertebral body heights and alignment are within normal limits. There is no spondylolisthesis or spondylolysis. Intervertebral disc spaces are well-maintained. Sacrum appears grossly unremarkable. Phleboliths are seen in the pelvis. Paravertebral soft tissues are unremarkable. RAD/Lumbar Spine 2 or 3 Views IMPRESSION: Unremarkable lumbar sacral spine. Reading Location: [id number]
== END | disposition home or self-care (01) ==
LOC: MTRAD 13:54
PROVIDERS: PCP Nurse Practitioner Family; Referring Provider Orthopaedic Surgery Sports Medicine; Visit Provider Orthopaedic Surgery Sports Medicine
DX: M25.552 Pain in left hip (principal); G57.10 Meralgia paresthetica, unspecified lower limb
CPT/HCPCS: 72100; 73502

== ENCOUNTER → 2024-06-08 | Outpatient (CLI) | payer OTHER, SELFPAY ==
--- NOTE | 2024-06-08 09:50 | NEURO ---
NCS and/or EMG Patient Report Ordering Doctor: Ashkan Ortiz DATE OF SERVICE: 06/08/24 Clinical Summary: 38 year old female patient with symptoms of numbness in the left lateral thigh region. She denies having similar symptoms in the right lower extremity. Nerve Conduction Studies Summary: Nerve conduction studies were performed primarily in the left lower extremity. The left lateral femoral cutaneous SNAP was absent. For comparison purposes, the right lateral femoral cutaneous SNAP was performed and also found to be absent. All other performed nerve conductions were normal. Needle Examination Summary: Needle examination of select muscles of the left lower extremity was normal. Impression: As per guidelines, unilateral meralgia paresthetica is confirmed electrodiagnostically by an absent and/or low amplitude lateral femoral cutaneous response on the symptomatic side in comparison to a normal response on the asymptomatic side as this particular nerve conduction is technically difficult to adequately obtain and visualize in the setting of increased body habitus/BMI. However, this patient's lateral femoral cutaneous sensory response was absent bilaterally, which can be seen in the setting of bilateral meralgia paresthetica or in the setting of technical limitations/difficulties of adequately stimulating the nerve altogether. As such, this electrodiagnostic study is not definitively diagnostic of a left or right lateral femoral cutaneous mononeuropathy. There is also no electrodiagnostic evidence of a left lumbosacral radiculopathy. Multi Select Codes Neurology Neurology Interp Codes: 55215-25 Musc test done w/n test comp (interp) (1) and 31695-60 Nrv cndj tst 5-6 studies (interp)
== END | disposition home or self-care (01) ==
LOC: PSN 08:36
PROVIDERS: PCP Nurse Practitioner Family; Referring Provider Orthopaedic Surgery Sports Medicine; Visit Provider Orthopaedic Surgery Sports Medicine
DX: G57.10 Meralgia paresthetica, unspecified lower limb (principal)
CPT/HCPCS: 95886; 95909

== ENCOUNTER → 2024-06-17 | Outpatient (CLI) | payer OTHER, SELFPAY ==
--- NOTE | 2024-06-18 06:40 | MRI_ITS ---
EXAM: MRI left hip without contrast CLINICAL HISTORY: Left leg burning and numbness. Pain. COMPARISON: None. TECHNIQUE: Unenhanced MRI left hip was performed. Large [id number] coronal T1 and STIR images of the entire pelvis also obtained. FINDINGS: Marrow edema is noted surrounding the pubic symphysis. There is apwts-[id number]-ytub-left irregularity of the pubic tubercles, consistent with degenerative change. No diastasis. No adductor tendon tear is identified. Mild symmetric edema of the sacral wings along the lower SI joint margins, without fracture line. Appearance most consistent with minor degenerative change. No SI joint effusions, likely physiologic in or ankylosis. Marrow signal is otherwise normal. There is no left hip fracture, osteonecrosis, or marrow replacement process. No hip joint effusions. No displaced labral tear. Bilateral hip joint cartilage is grossly intact bilaterally. No bursitis. Mild tendinosis of the left gluteus minimus, without tear. Gluteus medius is unremarkable. The iliotibial tracts are normal bilaterally. In the pelvis, the urinary bladder is decompressed. 2.7 cm left ovarian cyst, likely physiologic in this age patient. Hysterectomy. MRI/Lower Ext Joint Only (Routine) IMPRESSION: 1. Mild tendinosis of the left gluteus minimus without tear or bursitis. Left hip is otherwise unremarkable with no osteoarthritic change, effusion, or occult fracture. No marrow edema of the le ft hip. No labral pathology identified, allowing for lack of intra-articular contrast. 2. Minor symmetric degenerative change along the lower SI joints bilaterally. More advanced degenerative change of the pubic symphysis Reading Location: [facility]
== END | disposition home or self-care (01) ==
LOC: MRI 06-18 07:03
PROVIDERS: PCP Nurse Practitioner Family; Referring Provider Anesthesiology; Visit Provider Anesthesiology
DX: M25.552 Pain in left hip (principal)
CPT/HCPCS: 73721

== ENCOUNTER → 2024-07-02 | Outpatient (CLI) | payer OTHER, SELFPAY ==
[2024-07-02 11:53] LABS: Absolute Lymphocyte Count 1.87 X10^3/uL (0.83-4.51); Absolute Neutrophil Count 4.3 X10^3/uL (2.0-7.7); Basophil# 0.05 X10^3/uL; Basophil% 0.7 % (0-1); Eosinophil# 0.15 X10^3/uL; Eosinophils% 2.2 % (0-5); Hemoglobin 12.1 g/dL (12.0-15.0); Lymphocyte # 1.87 X10^3/ul (0.83-4.51); Mean Corp Hgb Conc 33.6 g/dL (32-36); Mean Corpuscular Hgb 30.5 pg (27.0-32.0); Mean Corpuscular Volume 90.7 fL (81-99); Mean Platelet Vol. 10.4 fl (6.2-12.0); Monocyte# 0.54 X10^3/uL; Monocyte% 7.8 % (0-10); NRBC Flagged by Analyzer 0 % (0-5); Platelet Count 282 K/mm3 (150-450); RBC Distribution Width CV 13.2 % (11.6-14.6); RBC Distribution Width SD 43.9 fl (35.1-43.9); Red Blood Count 3.97 M/mm3 (4.2-5.4); White Blood Count 6.9 K/mm3 (4.4-11.0)
[2024-07-02 12:30] LABS: Hemoglobin A1c 5.4 % (<=5.6)
[2024-07-02 12:55] LABS: Cholesterol 184 mg/dL (<=200); High Density Lipoprotein 58 mg/dL; Low Density Lipoprotein Calc. 102 mg/dL; Triglycerides 121 mg/dL; Very Low Density Lipoprotein 24 mg/dL (5-40); Vitamin B12 794 pg/mL (180-914); Vitamin D,25 Hydroxy 36.6 ng/mL (30-100); cholesterol:hdl ratio screen 3.16
[2024-07-02 12:57] LABS: ALB/GLOB Ratio 1.6 RATIO (0.9-2.4); AST(SGOT) 37 U/L (<=31); Alanine Aminotransfer ALT/SGPT 56 U/L (<=34); Albumin, Serum 4.3 g/dL (3.5-5.0); Alkaline Phosphatase 46 U/L (35-104); Anion Gap 10 (5-15); BUN 14 mg/dL (4-19); BUN/Creat Ratio 14.2 RATIO (10-20); Calcium,Total 9.6 mg/dL (7.6-11.0); Carbon Dioxide 24.2 mmol/L (21.0-32.0); Chloride 104 mmol/L (98-108); Creatinine, Serum 0.96 mg/dL (0.70-1.20); EST Glomerular Filtration Rate 77 (>60); Globulin 2.7 g/dL (2.2-4.2); Glucose 87 mg/dL (70-99); Potassium 4.3 mmol/L (3.3-5.1); Protein, Total 6.9 g/dL (5.9-8.4); Sodium Level 138 mmol/L (133-145); Total Bilirubin 0.43 mg/dL (0.00-1.30)
== END | disposition home or self-care (01) ==
LOC: LAB 10:24
PROVIDERS: PCP Nurse Practitioner Family
DX: Z13.220 Encounter for screening for lipoid disorders (principal); F32.9 Major depressive disorder, single episode, unspecified; Z13.1 Encounter for screening for diabetes mellitus; E53.8 Deficiency of other specified B group vitamins
CPT/HCPCS: 36415; 80053; 80061; 82306; 82607; 83036; 84443; 85025

== ENCOUNTER 2024-09-07 11:15 | Emergency (ER) | payer OTHER, SELFPAY ==
[2024-09-07 11:16] VITALS: BP 128/80; PULSE 70; RESP 20; TEMP 36.8; O2SAT 100; BMI 35.8
--- NOTE | 2024-09-07 11:38 | EKG12_ITS ---
Test Reason : CHEST PAIN Blood Pressure : */* mmHG Vent. Rate : 57 BPM Atrial Rate : 57 BPM P-R Int : 154 ms QRS Dur : 86 ms QT Int : 396 ms P-R-T Axes : 15 11 0 degrees QTcB Int : 385 ms Sinus bradycardia Otherwise normal ECG Confirmed by Daniel Welch ([id number]), associate entertainment editor DAVEY KILGORE ([id number]) on 09/08/2024 1:48:45 PM Referred By: Confirmed By: Daniel Welch
--- NOTE | 2024-09-07 11:38 | RAD_ITS ---
PROCEDURE: CHEST 1 VIEW (PORTABLE) 09/07/2024 REASON FOR EXAM: CHEST PAIN TECHNIQUE: Frontal view of the chest. COMPARISON: Chest radiograph 11/18/2017. FINDINGS: Hardware: None. Heart: The heart size is normal. Lungs: No focal consolidation, pleural effusion or pneumothorax. Bones: The bones are unremarkable. RAD/Chest 1 View (Portable) IMPRESSION: Negative Chest. Reading Location: [id number]
[2024-09-07 12:28] VITALS: PULSE 63; RESP 15; O2SAT 100
[2024-09-07 12:31] LABS: Hematocrit 36.2 % (37-47); Hemoglobin 12.5 g/dL (12.0-15.0); Immature Granulocytes Count 0.020 X10^3/uL (0.0-0.0); Mean Corp Hgb Conc 34.5 g/dL (32-36); Mean Corpuscular Volume 91.4 fL (81-99); Mean Platelet Vol. 9.9 fl (6.2-12.0); NRBC Flagged by Analyzer 0 % (0-5); Platelet Count 259 K/mm3 (150-450); RBC Distribution Width CV 12.9 % (11.6-14.6); RBC Distribution Width SD 43.4 fl (35.1-43.9); Red Blood Count 3.96 M/mm3 (4.2-5.4); White Blood Count 8.4 K/mm3 (4.4-11.0)
[2024-09-07 12:59] LABS: Anion Gap 13 (5-15); BUN 14 mg/dL (4-19); BUN/Creat Ratio 14.9 RATIO (10-20); Calcium,Total 9.6 mg/dL (7.6-11.0); Carbon Dioxide 21.8 mmol/L (21.0-32.0); Chloride 105 mmol/L (98-108); Estimated Creatinine Clearance 91.98 ml/min (50-250); Glucose 81 mg/dL (70-99); Potassium 3.5 mmol/L (3.3-5.1); Troponin T High Sensitivity < 6 ng/L (<=14)
[2024-09-07] MEDS: Lidocaine 2% Viscous15 ML UDC 15 ML PO (13:28)
[2024-09-07] MEDS: Famotidine 200 MG/20 ML MDV 20 MG in 0.9% Normal Saline (Pres. free 8 ML 300 MG IV (13:28)
[2024-09-07 13:31] VITALS: BP 117/78; PULSE 91; RESP 19; O2SAT 98
[2024-09-07 14:04] VITALS: PULSE 47; RESP 15; O2SAT 100
[2024-09-07 15:00] VITALS: BP 122/72; PULSE 67; RESP 17; O2SAT 99
--- NOTE | 2024-09-07 15:48 | ED.VIS.CHEST ---
HPI History of Present Illness Chief Complaint: Chest Pain Detail of Chief Complaint: Chest pressure that started last evening at rest Informant: patient Onset/Context/Timing Onset: Yesterday Activity at onset: sudden Timing: Continuous Quality: Positive for Heaviness and Pressure Location: Substernal Current Severity: Moderate Maximum Severity: Severe Worsened By: Nothing Relieved By: Nothing Associated Symptoms: Positive for Dyspnea; Negative for Nausea, Vomiting, Diaphoresis, Cough, Fever, Lightheadedness, Acid Reflux or Palpitations Narrative Narrative: Patient is a 39-year-old woman who presents with chest pressure that started at rest last evening approximately 1900. She had 20 to 30 minutes of tingling in her left upper extremity. She was seen by Dr. Douglas at the [facility]. She is also been seen by Lilian Bryant at the [facility]. Her most recent visit was a couple of years ago. She had an echo which revealed no structural abnormality. She had a Holter monitor which revealed no significant dysrhythmia or bradycardia. She presents today because of the chest pressure that has been unrelenting. Nothing makes it better or worse. It is not positional. It is not related to food. She denies history of VTE. She has no risk factors for VTE. She is not on hormonal therapy. She denies leg pain, swelling discoloration. Patient does have history of IBS. She also has history of pain in multiple areas. GERD, segmental and somatic dysfunction of the pelvic region, thoracic region, lumbar region and cervical region. She also has a history of generalized anxiety disorder. There is a history of bradycardia and she has been bradycardic on prior EKGs. Prior Similar Symptoms: No CVD Risk Factors: Positive for Hypertension; Negative for Diabetes, Hypercholesterolemia, Family History 1' </=55 or Smoking PE Risk Factors: Negative for Recent Travel/Surgery, Recent Immobilization, Prior DVT or PE, Cancer or OCP + Smoking + >/=35 TAD Risk Factors: Positive for Hypertension and Family History; Negative for Marfan's Syndrome [facility] Medical History Left hip pain Cardiology follow-up encounter Acute conjunctivitis, left eye History of Holter monitoring Generalized anxiety disorder Vitamin deficiency Bilateral carpal tunnel syndrome Numbness and tingling in both hands Positive Tinel's sign Right ear impacted cerumen History of irregular heartbeat History of echocardiogram Chest pain History of stress test Bipolar 1 disorder Essential hypertension Abnormal EKG Bradycardia Wears glasses Wears dentures Wears partial dentures Alcohol use Migraine headache Hx of vertigo Gastric reflux Former smoker Hypertension Tinnitus Nonscarring hair loss Screening for thyroid disorder Tinnitus, right GI bleed vision problem with headache Neuropathy IBS (irritable bowel syndrome) H/O emotional problems History of eating disorder Chronic neck and back pain Chronic diarrhea H/O hemorrhoids Home Medications ?Medication ?Instructions ?Recorded ?Last Taken ?Type cetirizine 10 mg capsule (Zyrtec) 10 mg PO DAILY 02/15/20 Unknown History ibuprofen 800 mg tablet 800 mg PO Q8H PRN pain 7 days #30 03/13/21 Unknown Rx tabs dicyclomine 20 mg tablet 20 mg PO TID PRN abdominal pain 11/16/21 Unknown Rx #180 tabs pantoprazole 40 mg tablet,delayed 40 mg PO DAILY reflux #90 tabs 02/27/22 06/11/23 05:00 Rx release (Protonix) buspirone 30 mg tablet 30 mg PO BID 90 days #180 tabs 05/28/22 11/26/23 Rx cariprazine 1.5 mg capsule 3 mg PO DAILY 11/25/22 11/26/23 History (Vraylar) cyanocobalamin (vitamin B-12) 100 100 mcg PO DAILY 12/06/22 Unknown History mcg tablet (Vitamin B-12) propranolol 20 mg tablet 20 mg PO DAILY BP 06/05/23 11/26/23 History eletriptan 20 mg tablet (Relpax) See Rx Instructions .Route 09/29/23 Unknown Rx .COMPLEX #9 tabs erenumab-aooe 140 mg/mL 140 mg subcut QMONTH migraines #1 09/29/23 Unknown Rx subcutaneous auto-injector mL (Aimovig Autoinjector) ondansetron HCl 4 mg tablet 4 mg PO TID PRN nausea and 09/29/23 Unknown Rx vomiting #90 tabs tizanidine 4 mg tablet (Zanaflex) 8 mg (2 x 4 mg) PO QHS #60 tabs 09/29/23 Unknown Rx ubrogepant 100 mg tablet 100 mg PO .COMPLEX migraine 09/29/23 Unknown Rx headache #16 tabs empty vial 05/11/24 Unknown History semaglutide (weight loss) 0.5 1.5 mg subcut QWEEK 06/14/24 Unknown History mg/0.5 mL subcutaneous pen injector Allergy/AdvReac Type Severity Reaction Status Date / Time Penicillins AdvReac Severe hives Verified 09/07/24 11:16 cefaclor (From Ceclor) AdvReac Intermediate Hives Verified 09/07/24 11:16 doxycycline AdvReac Intermediate Diarrhea Verified 09/07/24 11:16 Family History Mother Hypertension Arthritis Anemia Father Diabetes Anesthesia complication Brother Brain cancer Anxiety Sister Asthma Grandmother CVA (cerebral vascular accident) Daughter Anxiety Grandfather COPD (chronic obstructive pulmonary disease) CVA (cerebral vascular accident) Other Seizures Surgical History History of carpal tunnel surgery of left wrist History of carpal tunnel surgery of right wrist History of salpingectomy History of right salpingo-oophorectomy History of hysterectomy Hx of colonoscopy Hx of esophagogastroduodenoscopy history of upper and lower scope History of cholecystectomy H/O dilation and curettage History of tonsillectomy Social History household members: spouse and children number of children: 3 current occupational status: employed current occupation: [employer] history of recent travel: No sexually active: Yes Smoking Status: Former smoker alcohol intake: never substance use type: does not use caffeine: No what type of physical activity do you participate in: running frequency: 3-4 times per week seatbelt use: always do you feel safe at home: Yes additional social history: - Donald [employer] ED Constitutional Constitutional ED: Denies chills, fever(s), subjective or sweats Eyes Eyes: Reports none ENT ENT ED: Denies rhinorrhea or sore throat Cardiovascular Cardiovascular: Reports as per HPI; Denies orthopnea or paroxysmal nocturnal dyspnea Respiratory/Chest Respiratory/Chest: Denies cough, dyspnea, dyspnea on exertion, orthopnea or paroxysmal nocturnal dyspnea Gastrointestinal Gastrointestinal: Denies abdominal pain, diarrhea, melena or vomiting Genitourinary Genitourinary ED: Denies dysuria, hematuria or urinary frequency Musculoskeletal Musculoskeletal: Denies back pain Neurologic Neurologic: Denies paresthesias Hematologic/Lymphatic Hematologic/Lymphatic: Denies easy bleeding or easy bruising EXAM Physical Exam Const Vital Signs: 09/07/24 11:16 09/07/24 11:20 09/07/24 11:49 Temperature 98.2 F Temperature Source Oral Pulse Rate 70 Respiratory Rate 20 H Respiratory Effort Normal Blood Pressure 128/80 H Blood Pressure Mean 96 Pulse Ox 100 Oxygen Delivery Method Room Air 09/07/24 12:28 09/07/24 13:31 09/07/24 14:04 Temperature Temperature Source Pulse Rate 63 91 47 L Respiratory Rate 15 19 H 15 Respiratory Effort Blood Pressure 117/78 Blood Pressure Mean 91 Pulse Ox 100 98 100 Oxygen Delivery Method 09/07/24 15:00 Temperature Temperature Source Pulse Rate 67 Respiratory Rate 17 Respiratory Effort Blood Pressure 122/72 H Blood Pressure Mean 88 Pulse Ox 99 Oxygen Delivery Method Positive well nourished and well developed Constitutional Narrative: BMI is 35.8. General Appearance ED: well developed and NAD HEENT normocephalic and atraumatic Eyes PERRL and EOMs intact bilaterally General Eye ED: Negative for scleral icterus Neck no lymphadenopathy, supple and no JVD Resp normal respiratory effort and clear to auscultation bilaterally Cardio regular rate, regular rhythm, S1 normal heart sound, S2 normal heart sound and no murmurs GI normal to inspection, nondistended, normoactive bowel sounds, soft to palpation, non-tender, non-distended and no masses; Negative for hepatosplenomegaly Back/Spine no CVA tenderness Extremity normal to inspection Extremity Narrative: There is no asymmetry, discoloration, ligament distention, palpable cords sounds on the distribution deep venous system. Neuro oriented x3 and CN's II-XII intact bilaterally Sensorium / Orientation: awake and alert Psych mental status grossly normal Skin no rashes or lesions noted and no wounds Heart Score History: Slightly/Non-Suspicious ECG: Normal Age: </= 45 years Risk Factors: 1 or 2 Risk Factors Troponin: </= Normal Limit Score: 1 MDM MDM MDM Narrative Medical decision making narrative: Differential diagnosis is cardiac versus noncardiac. Noncardiac would be affective disorder, GI etiology pulmonary etiology. Patient is PERC negative and Wells score is less than 3. History and physical not consistent with aortic dissection. Prior records through the heart group were reviewed. Patient's Holter monitor was reviewed as well as echo and Dr. Douglas and Lilian Cisse's note. Lab Data Attestation: I reviewed the patient's lab results. Lab results narrative: CBC is unremarkable. BMP is normal. Troponin with greater than 14 hours of pain is less than 6 which rules out cardiac etiology. Labs: Laboratory Results - last 24 hr 09/07/24 12:17 WBC 8.4 RBC 3.96 L Hgb 12.5 Hct 36.2 L MCV 91.4 MCH 31.6 MCHC 34.5 RDW Std Deviation 43.4 RDW Coeff of [place] 12.9 Plt Count 259 MPV 9.9 Immature Gran % (Auto) 0.200 Neut % (Auto) 68.7 Lymph % (Auto) 23.5 [place] % (Auto) 6.2 Eos % (Auto) 0.9 Baso % (Auto) 0.5 Absolute Neuts (auto) 5.8 Absolute Lymphs (auto) 1.98 Nucleated RBC % 0 Sodium 140 Potassium 3.5 Chloride 105 Carbon Dioxide 21.8 Anion Gap 13 BUN 14 Creatinine 0.94 Estim Creat Clear Calc 91.98 Est GFR (MDRD) Non-Af 78 BUN/Creatinine Ratio 14.9 Glucose 81 Calcium 9.6 Troponin T High Sens < 6 Radiography Chest X-Ray - ED: Read by ED Physician (Chest x-ray independent reviewed interpreted by me as normal. Cardiac silhouette size normal. Lung parenchyma normal. [place] structures are normal. This was compared toPerformed November 2017) Diagnostic Testing: Clinical Impression(s) from Imaging Studies Chest X-Ray 09/07/24 11:38 IMPRESSION: Negative Chest. Reading Location: [facility] Differential Diagnosis Chest pain/SOB: pulmonary embolism Reason(s) PE less likely: Positive for PERC negative Management Discussion w/another healthcare provider: Sample Examiner Treatment and Re-Evaluation :: Case was Dr. Armando to use. He informing that this may represent a neurohormonal issue with dopamine serotonin specially since she has a history of IBS. He recommended gluten-free diet. Patient was informed the cause of her pain is unknown. She was informed that my responsibility is to rule out life-threatening issues. She does not have any life-threatening issues. Therefore we will discharge to home Comments:: Patient did have an episode where she was lightheaded and she was bradycardic. She had increased chest pressure at that time. Suspect this was a vagal response. Discharge Plan Triage Chief Complaint: Chest Pain ED Provider: Sergo Olsen Dx/Rx/DC Orders Clinical Impression: Chest pressure, IBS (irritable bowel syndrome), Bradycardia, Vasovagal near syncope, Elevated blood pressure reading with diagnosis of hypertension Instructions: ED Chest Pain, Noncardiac, ED Chest Pain, Uncertain Cause, ED Near-Fainting- Vagal Reaction Prescriptions: No Action dicyclomine 20 mg tablet 20 mg PO TID PRN (Reason: abdominal pain) Qty: 180 3RF pantoprazole [Protonix] 40 mg tablet,delayed release (DR/EC) 40 mg PO DAILY Qty: 90 3RF Vraylar 1.5 mg capsule 3 mg PO DAILY eletriptan [Relpax] 20 mg tablet See Rx Instructions .ROUTE .COMPLEX Qty: 9 2RF Rx Instructions: Take 1 tablet PO every 2 hours as needed for headache up to 2 tablets per day Aimovig Autoinjector 140 mg/mL auto-injector 140 mg subcut QMONTH Qty: 1 11RF ondansetron HCl 4 mg tablet 4 mg PO TID PRN (Reason: nausea and vomiting) Qty: 90 1RF tizanidine [Zanaflex] 4 mg tablet 8 mg PO QHS Qty: 60 11RF ubrogepant 100 mg tablet 100 mg PO .COMPLEX Qty: 16 4RF Rx Instructions: Take 1 tablet orally every 2 hours as needed for headache up to 2 tablets daily semaglutide (weight loss) 0.5 mg/0.5 mL pen injector 1.5 mg subcut QWEEK Rx Instructions: administer weeks 5 through 8 of therapy (DME) empty vial Misc See Rx Instructions .Route Rx Instructions: As directed Zyrtec 10 mg capsule 10 mg PO DAILY ibuprofen 800 mg tablet 800 mg PO Q8H PRN (Reason: pain) 7 Days Qty: 30 0RF cyanocobalamin (vitamin B-12) [Vitamin B-12] 100 mcg tablet 100 mcg PO DAILY propranolol 20 mg tablet 20 mg PO DAILY buspirone 30 mg tablet 30 mg PO BID 90 Days Qty: 180 1RF Primary Care Provider: Angus Batista Referrals: Angus Batista, [employer] [Primary Care Provider] - 1 Week Activity Restrictions/Additional Instructions: Recommend gluten-free diet to see if this helps you with your bradycardia and chest discomfort Print Language: Mongolian Disposition Disposition: Home, Self Care
[2024-09-07 16:11] VITALS: BP 122/72; PULSE 67; RESP 17; TEMP 36.8; O2SAT 99
[2024-09-07 16:21] LABS: Troponin T High Sens 2 HR < 6 ng/L (<=14)
== END 2024-09-07 16:12 | disposition home or self-care (01) ==
PROVIDERS: Emergency Provider Emergency Medicine; PCP Nurse Practitioner Family; Visit Provider Emergency Medicine
DX: R07.89 Other chest pain (principal); K58.9 Irritable bowel syndrome, unspecified; R55 Syncope and collapse; I10 Essential (primary) hypertension; Z87.891 Personal history of nicotine dependence; R06.00 Dyspnea, unspecified; K21.9 Gastro-esophageal reflux disease without esophagitis; R00.1 Bradycardia, unspecified
CPT/HCPCS: 36415; 71045; 80048; 84484; 85025; 93005; 96365; 99284; A4216

== ENCOUNTER → 2024-09-17 | Outpatient (CLI) | payer OTHER, SELFPAY ==
[2024-09-17 14:07] LABS: AST(SGOT) 23 U/L (<=31); Alanine Aminotransfer ALT/SGPT 19 U/L (<=34); Albumin, Serum 4.4 g/dL (3.5-5.0); Alkaline Phosphatase 40 U/L (35-104); Anion Gap 11 (5-15); BUN 12 mg/dL (4-19); BUN/Creat Ratio 11.8 RATIO (10-20); Calcium,Total 9.7 mg/dL (7.6-11.0); Carbon Dioxide 23.2 mmol/L (21.0-32.0); Chloride 107 mmol/L (98-108); Globulin 2.6 g/dL (2.2-4.2); Glucose 93 mg/dL (70-99); Potassium 4.1 mmol/L (3.3-5.1)
== END | disposition home or self-care (01) ==
LOC: BIMLAB 10:53
PROVIDERS: PCP Nurse Practitioner Family
DX: R94.5 Abnormal results of liver function studies (principal)
CPT/HCPCS: 36415; 80053

== ENCOUNTER → 2024-11-29 | Outpatient (CLI) | payer OTHER, SELFPAY ==
[2024-11-29 17:29] LABS: Follicle Stimulating Hormone 4.3 mIU/mL
[2024-12-03 03:07] LABS: Anti-Mullerian Hormone,Serum 0.618 ng/mL (.)
== END | disposition home or self-care (01) ==
PROVIDERS: PCP Nurse Practitioner Family; Visit Provider Nurse Practitioner Women's Health
DX: Z13.29 Encounter for screening for other suspected endocrine disorder (principal); R23.2 Flushing
CPT/HCPCS: 36415; 82670; 83001; 83516; 84443

== ENCOUNTER → 2024-12-03 | Outpatient (CLI) | payer OTHER, SELFPAY ==
--- OUTSIDE RECORDS SUMMARY | 2024-12-03 17:42 | XMS RPT_ITS | CCD ---
Author Organization [facility] Care Team Providers Care [employer] Name Role Phone Dr. Grisel Solares Primary Care Provider [phone] Dr. Grisel Solares Referring Provider [phone] MD Ashkan Ortiz Attending Provider [phone] Lester METAL FURNACE OPERATOR, METAL FURNACE OPERATOR-C Angus Attending Provider [phone] Dr. Carlton Douglas Attending Provider [phone] Dr. Katharine Madden Attending Provider [phone] Dr. Grisel Solares Primary Care Provider [phone] Dr. Grisel Solares Referring Provider [phone] Dr. Carlton Douglas Attending Provider [phone] Lester METAL FURNACE OPERATOR, METAL FURNACE OPERATOR-C Angus Attending Provider [phone] Dr. Katharine Madden Attending Provider [phone] Dr. Harry Fernandes Attending Provider Dr. Ana Maria Walker Attending Provider [phone] Dr. Grisel Solares Primary Care Provider [phone] Dr. Grisel Solares Referring Provider [phone] Dr. Grisel Solares Primary Care Provider [phone] Dr. Grisel Solares Referring Provider [phone] Lester METAL FURNACE OPERATOR, METAL FURNACE OPERATOR-C Angus Attending Provider [phone] Dr. Grisel Solares Primary Care Provider [phone] Dr. Grisel Solares Referring Provider [phone] Dr. Harry Fernandes Attending Provider [phone] [facility], [facility] Primary Care Pro vider Dr. Grisel Solares Referring Provider [phone] [facility], [facility] Referring Provid er MD Ashkan Ortiz Attending Provider [phone] MD Ashkan Ortiz Other Provider [phone] Grisel Solares Referring Provider [phone] Dr. Harry Fernandes Attending Provider [phone] [facility], [facility] Primary Care Pro vider [facility], [facility] Referring Provid er MD Ashkan Ortiz Attending Provider [phone] MD Ashkan Ortiz Other Provider [phone] Katharine Madden Attending Provider [phone] DARIN Arthur Attending Provider [phone] [facility], [place] [facility] Primary Care Pro vider [facility], [place] [facility] Referring Provid er Dr. Katharine Madden Attending Provider MD Ashkan Ortiz Attending Provider [phone] DARIN Arthur Attending Provider [phone] [place] METAL FURNACE OPERATOR, METAL FURNACE OPERATOR-C Lindy Attending Provider [phone] [facility], [facility] Primary Care Pro vider [facility], [facility] Referring Provid er MD Ashkan Ortiz Attending Provider [phone] Dr. Grisel Solares Referring Provider [phone] Dr. Ana Maria Walker Attending Provider [phone] MD Ashkan Ortiz Referring Provider [phone] MD Ashkan Ortiz Other Provider [facility], [facility] Primary Care Pro vider [facility], [facility] Referring Provid er Unavailable Primary Care Provider UnavailASHKAN Beltran Referring Unavailable Batista METAL FURNACE OPERATOR-C, Angus Primary Care Provider Batista METAL FURNACE OPERATOR-C, Angus Referring Provider Ashkan Ortiz MD Attending Provider Lewis PENNINGTON, Dr. Stoddard Attending Provider Dr. Richi Saucedo DO Emergency Provider Alem Gross CNM Attending Provider Alem Gross CNM Referring Provider Beam METAL FURNACE OPERATOR-C, Ledy Attending Provider Beam METAL FURNACE OPERATOR-C, Zebujarad Referring Provider Ashkan Ortiz MD Referring Provider Batista METAL FURNACE OPERATOR-C, Angus Primary Care Provider Batista METAL FURNACE OPERATOR-C, Angus Referring Provider Ashkan Ortiz MD Attending Provider Ashkan Ortiz MD Other Provider Veronica ROGRE, Dr. Greene Attending Provider Dr. Ana Maria Walker DO Attending Provider Dr. Carlos Martins MD Attending Provider Dr. Carlos Martins MD Referring Provider Batista METAL FURNACE OPERATOR-C, Angus Primary Care Provider Batista METAL FURNACE OPERATOR-C, Angus Referring Provider Raúl ROGER, Dr. Trotter Emergency Provider Batista METAL FURNACE OPERATOR-C, Angus Primary Care Provider Ashkan Ortiz MD Attending Provider Ashkan Ortiz MD Referring Provider Batista METAL FURNACE OPERATOR-C, Angus Referring Provider Beam METAL FURNACE OPERATOR-C, Zebujarad Attending Provider Beam METAL FURNACE OPERATOR-C, Zebulun Referring Provider Raúl ROGER, Dr. Trotter Attending Provider Batista METAL FURNACE OPERATOR-C, Angus Primary Care Provider Assessment, Health Risk Attending Provider [facility] Referring Provid er Dom ROGER, Dr. Mcdonald Attending Provider Assessment, Health Risk Attending Unavaila ble Batista VSC, Angus Primary Care Unavailable Assessment, Health Risk Referring Unavaila ble Batista VSC, Angus Primary Care Unavailable Harry Fernandes Attending Unavailable [facility] Referring Unavailable Ana Maria Walekr Attending Unavailabl e Batista VSC, Angus Primary Care Unavailable Batista VSC, Angus Referring Unavailable Batista VSC, Angus Primary Care Unavailable Batista VSC, Angus Referring Unavailable Leonel METAL FURNACE OPERATOR, Lindy Attending Unavailable Batista VSC, Angus Primary Care Unavailable [place]ford METAL FURNACE OPERATOR, Lindy Attending Unavailable Batista VSC, Angus Primary Care Unavailable [place] METAL FURNACE OPERATOR, Lindy Referring Unavailable [place] METAL FURNACE OPERATOR, Lindy Attending Unavailable Prayson, Carlos Referring Unavailable Prayson, Acrlos Attending Unavailable Batista VSC, Angus Primary Care Unavailable Batista VSC, Angus Primary Care Unavailable Richi Saucedo Attending Unavailable Batista VSC, Angus Primary Care Unavailable Sergo Olsen Attending Unavailable Batista VSC, Angus Referring Unavailable Batista VSC, Angus Primary Care Unavailable Alem Gross Attending Unavailable Batista VSC, Angus Primary Care Unavailable Beam VSC, Zebulurupinder Attending Unavailable Beam VSC, Zebulun Referring Unavailable Batista VSC, Angus Referring Unavailable Batista VSC, Angus Primary Care Unavailable Ashkan Ortiz Attending Unavailable Batista VSC, Angus Referring Unavailable Batista VSC, Angus Primary Care Unavailable Ashkan Ortiz Attending Unavailable Batista VSC, Angus Primary Care Unavailable Batista VSC, Angus Referring Unavailable Eladio Davey Attending Unavailable Ashkan Ortiz Consulting Unavailable Batista VSC, Angus Primary Care Unavailable Ashkan Ortiz Referring Unavailable Ramona Martin Attending Unavailable Batista VSC, Angus Referring Unavailable Batista VSC, Angus Primary Care Unavailable Ashkan Ortiz Attending Unavailable Batista VSC, Angus Referring Unavailable Batista VSC, Angus Primary Care Unavailable Ashkan Ortiz Attending Unavailable Batista VSC, Angus Primary Care Unavailable Beam VSC, Zebulun Attending Unavailable Beam VSC, Zebulun Referring Unavailable Batista VSC, Angus Primary Care Unavailable Alem Gross Referring Unavailable Alem Gross Attending Unavailable Ashkan Ortiz Referring Unavailable Batista VSC, Angus Primary Care Unavailable Ashkan Ortiz Attending Unavailable Ashkan Ortiz Attending Unavailable Batista VSC, Angus Primary Care Unavailable Ashkan Ortiz Referring Unavailable Batista VSC, Angus Primary Care Unavailable Beam VSC, Zebulun Attending Unavailable Batista VSC, Angus Primary Care Unavailable Assessment, Health Risk Attending Unavaila ble Allergies Allergy Classification Reported Allergen(s) Allergy Type Date of Onset Reaction(s) Facility (20 sources) Cefaclor; Translations: [CEFACLOR] Drug Allergy 5 Rash [facility] (20 sources) Doxycycline; Translations: [DOXYCYCLINE] Drug Allergy 5 Rash, Diarrhea [facility] Comment on above: rash (20 sources) Penicillins; Translations: [PENICILLINS] Allergy to substance 5 [facility] (2 sources) Penicillins Propensity to adverse reactions 5 [facility] (3 sources) Seasonal allergy; Translations: [SEASONAL ALLERGIES] Propensity to adverse reactions 0 [facility] Work Phone: (1 source) Cefaclor Drug Allergy 5 [facility] Rep[facility] (1 source) Doxycycline Drug Allergy 5 [facility] Rep[facility] (1 source) Morphine Drug Allergy 4 [facility] Rep[facility] (1 source) Penicillins Drug allergy (disorder) 5 [facility] Rep[facility] Medications Current Medications Medication Drug Class(es) Dates Sig (Normalized) Sig (Original) acetaminophen 325 mg / HYDROcodone bitartrate 5 mg oral tablet (4 sources) Opioid Agonist Start: 09-29-2022 take 1 tablet by mouth every six hours as needed Hydrocodone-Aceta minophen Active 1 TABLET PO EVERY 6 HOURS NEEDED 10 3 September 29, 2022 busPIRone hydrochloride 30 mg oral tablet (20 sources) Start: 05-28-2022 take 1 tablet by mouth twice daily Buspirone 30 mg tablet Active 30 mg PO TWICE A DAY 180 90 May 28, 2022 9:08am Start: 02-27-2022 End: 05-28-2022 take 1 tablet by mouth three times daily Buspirone 15 mg tablet Discontinued 15 mg PO THREE TIMES A DAY 270 90 February 27, 2022 11:39am May 28, 2022 9:11am Start: 12-25-2021 End: 02-27-2022 take 1 tablet by mouth three times daily Buspirone 10 mg tablet Discontinued 10 mg PO THREE TIMES A DAY 9 3 February 22, 2022 12:23pm February 27, 2022 11:44am Start: 11-27-2021 End: 12-25-2021 take 1 tablet by mouth three times daily Buspirone 7.5 mg tablet Discontinued 7.5 mg PO THREE TIMES A DAY 90 November 27, 2021 10:12am December 25, 2021 10:54am Start: 11-27-2021 End: 11-27-2021 take 5 mg by mouth three times daily Buspirone 7.5 mg tablet Discontinued 5 mg PO THREE TIMES A DAY 90 November 27, 2021 9:02am November 27, 2021 10:12am Start: 11-27-2021 End: 11-27-2021 take 5 mg by mouth three times daily Buspirone Discontinued 5 MG PO THREE TIMES A DAY 90 November 27, 2021 9:02am November 27, 2021 10:12am Start: 11-16-2021 End: 11-27-2021 take 1 tablet by mouth twice daily Buspirone 5 mg tablet Discontinued 5 mg PO TWICE A DAY 60 2 November 16, 2021 12:00am November 27, 2021 9:02am cariprazine 1.5 mg oral capsule (17 sources) Atypical Antipsychotic Start: 11-25-2022 take 1 capsule by mouth once daily Cariprazine (Vraylar) 1.5 mg capsule Active 3 mg PO DAILY November 25, 2022 12:00am Start: 11-25-2022 take 1 capsule by [facility] every other day Cariprazine (Vraylar) 1.5 mg capsule Active 1.5 MG PO EVERY OTHER DAY November 25, 2022 12:00am cetirizine hydrochloride 10 mg oral capsule (20 sources) Histamine-1 Receptor Antagonist Start: 11-18-2017 End: 02-15-2020 take 1 capsule by mouth once daily Cetirizine (Zyrtec) 10 mg capsule Active 10 mg PO DAILY February 15, 2020 2:42pm Start: 04-30-2017 take 1 tablet by greg th once daily cetirizine (ZYRTEC) 10 mg tablet Take 1 tablet by mouth once daily. 04/30/2017 Active cholestyramine resin 4000 mg powder for oral suspension (2 sources) Bile Acid Sequestrant Start: 12-08-2017 cholestyramine-sucrose (QUESTRAN) 4 gram powder Take 1/2 teaspoon, mixed in at least 8 oz of juice or water each morning. 378 g 2 12/08/2017 Active Ciprofloxacin-Hydr ocortisone (Cipro Hc) 0.2-1 % drops,suspension (4 sources) Start: 09-29-2022 Ciprofloxacin-Hydrocortiso ne (Cipro Hc) 0.2-1 % drops,suspension Active 3 DRP LEFT EAR TWICE A DAY 11 23September 29, 2022 12:00am eletriptan 20 mg oral tablet (20 sources) Serotonin-1b and Serotonin-1d Receptor Agonist Start: 03-28-2022 End: 10-26-2024 take 1 tablet by mouth every two hours as needed for headache, then take 2 tablets by mouth once daily as needed for headache Eletriptan (Relpax) 20 mg tablet Active 0 .ROUTE .COMPLEX 9 2 October 26, 2024 2:56pm Take 1 tablet PO every 2 hours as needed for headache up to 2 tablets per day Start: 06-13-2020 End: 03-28-2022 Eletriptan 20 mg tablet Disc ontinued 0 .ROUTE .COMPLEX 9 0 July 10, 2020 11:40am August 01, 2020 12:07pm take 1 tab at onset of headache; june repeat 1 tab x1 after at least 2 hrs; max 2 doses/day Empty Vial misc (9 sources) Start: 05-11-2024 Empty Vial mis c Active 0 .Route May 11, 2024 12:00am As directed Start: 05-11-2024 Empty Vial mis c Active 0 .ROUTE May 11, 2024 12:00am As directed 1 ml erenumab-aooe 140 mg/ml auto-injector (20 sources) Start: 10-09-2020 End: 10-26-2024 Erenumab-Aooe (Aimovig Autoinjector) 140 mg/mL auto-injector Active 140 mg SC EVERY MONTH 1 October 26, 2024 2:55pm migraines Start: 06-22-2020 End: 10-09-2020 Erenumab-Aooe (Aimovig Autoi njector) 70 mg/mL auto-injector Discontinued 70 mg SC EVERY MONTH 1 August 01, 2020 12:05pm October 09, 2020 1:53pm 12 hr hyoscyamine sulfate 0.375 mg extended release oral tablet (2 sources) Start: 12-08-2017 take 0.375 mg by mouth every twelve hours as needed hyoscyamine SR (LEVBID) 0.375 mg 12 hr tablet Take 1 tablet by mouth every 12 hours as needed. 60 tablet 3 12/08/2017 Active ondansetron 4 mg oral tablet (20 sources) Serotonin-3 Receptor Antagonist Start: 03-28-2022 End: 10-26-2024 take 1 tablet by mouth three times daily as needed for nausea and vomiting Ondansetron Hcl 4 mg tablet Active 4 mg PO THREE TIMES A DAY as needed for nausea and vomiting 90 October 26, 2024 2:56pm Start: 10-14-2017 End: 03-28-2022 take 1 tablet by mouth every eight hours as needed for nausea and vomiting Ondansetron Hcl (Zofran) 4 mg tablet Discontinued 4 mg PO Q8H as needed for nausea and vomiting 90 November 28, 2020 8:58am April 24, 2021 11:09am propranolol hydrochloride 20 mg oral tablet (20 sources) beta-Adrenergic Thais Start: 06-05-2023 take 1 tablet by mouth once daily Propranolol 20 mg tablet Active 20 mg PO DAILY June 05, 2023 12:00am BP Start: 02-13-2022 End: 06-05-2023 take 1 tablet by mouth twice daily Propranolol 20 mg tablet Discontinued 20 mg PO TWICE A DAY 90 February 13, 2022 10:04am June 05, 2023 8:18am BP Start: 02-28-2021 End: 02-13-2022 take 1 tablet by mouth twice daily Propranolol 40 mg tablet Discontinued 40 mg PO TWICE A DAY March 07, 2021 9:13am November 16, 2021 11:02am BP Start: 02-19-2021 End: 02-28-2021 take 2 tablets by mouth twice daily Propranolol 20 mg tablet Discontinued 40 mg PO TWICE A DAY February 19, 2021 1:02pm February 28, 2021 6:19pm Start: 02-19-2021 End: 02-28-2021 take 40 mg by mouth twice daily Propranolol Discontinu ed 40 MG PO TWICE A DAY February 19, 2021 1:02pm February 28, 2021 6:19pm Start: 01-23-2021 End: 02-19-2021 take 1 tablet by mouth twice daily Propranolol 20 mg tablet Discontinued 20 mg PO TWICE A DAY January 23, 2021 1:00am February 19, 2021 1:04pm Start: 03-29-2020 End: 12-12-2020 take 1 tablet by mouth twice daily Propranolol 40 mg tablet Discontinued 40 mg PO TWICE A DAY 180 December 04, 2020 8:26am December 12, 2020 11:17am Start: 03-13-2020 End: 03-29-2020 take 1 tablet by mouth twice daily Propranolol 20 mg tablet Discontinued 20 mg PO TWICE A DAY 60 0 March 13, 2020 1:00am March 29, 2020 6:13pm Semaglutide (Weight Loss) (6 sources) Start: 06-14-2024 Semaglutide (W eight Loss) 0.5 mg/0.5 mL pen injector Active 1.5 mg SC EVERY WEEK June 14, 2024 12:00am administer weeks 5 through 8 of therapy Start: 06-14-2024 Semaglutide (W eight Loss) 0.5 mg/0.5 mL pen injector Active 0.5 mg SC EVERY WEEK June 14, 2024 12:00am administer weeks 5 through 8 of therapy tiZANidine 4 mg oral tablet (20 sources) Central alpha-2 Adrenergic Agonist Start: 03-28-2022 End: 10-26-2024 Tizanidine (Zanaflex) 4 mg tablet Active 8 mg PO AT BEDTIME 60 October 26, 2024 2:56pm Start: 05-02-2020 End: 03-28-2022 take 4-8 mg by mouth three times daily as needed for pain Tizanidine 4 mg tablet Discontinued 4 - 8 mg PO THREE TIMES A DAY as needed for neck pain 180 1 February 08, 2021 9:38am March 07, 2021 9:14am ubrogepant 100 mg oral tablet (20 sources) Start: 03-28-2022 End: 10-26-2024 take 1 tablet by mouth every two hours as needed for headache, then take 2 tablets by mouth once daily as needed for headache Ubrogepant 100 mg tablet Active 100 mg PO .COMPLEX 10 4 October 26, 2024 2:55pm migraine headache Take 1 tablet orally every 2 hours as needed for headache up to 2 tablets daily Start: 03-30-2020 End: 03-28-2022 take 1 tablet by mouth once as needed for headache Ubrogepant (Ubrelvy) 100 mg tablet Discontinued 100 mg PO ONCE as needed for migraine headache 10 2 February 28, 2021 11:10am April 24, 2021 11:09am as a single dose; may repeat once in >=2 hours after first dose if needed vitamin b12 0.1 mg oral tablet (16 sources) Vitamin B12 Start: 12-06-2022 take 1 tablet by mouth once daily Cyanocobalamin (Vitamin B-12) (Vitamin B-12) 100 mcg tablet Active 100 ug PO DAILY December 06, 2022 12:00am Completed/Discontinued Medications Medication Drug Class(es) Dates Sig (Normalized) Sig (Original) acetaminophen 325 mg / oxyCODONE hydrochloride 5 mg oral tablet (20 sources) Opioid Agonist Start: 11-26-2023 End: 12-30-2023 Oxycodone-Acetamino phen (Endocet) 5-325 mg tablet Discontinued 1 {tbl} PO Q4H as needed for pain 14 3 0 November 26, 2023 December 30, 2023 10:15am Bilateral carpal tunnel syndrome Carpal tunnel syndrome, bilateral upper limbs Start: 06-11-2023 End: 07-01-2023 Oxycodone-Acetaminophen (Per cocet) 5-325 mg tablet Discontinued 1 {tbl} PO Q4H as needed for pain 14 3 0 June 11, 2023 July 01, 2023 10:34am Bilateral carpal tunnel syndrome Carpal tunnel syndrome, bilateral upper limbs Start: 12-19-2022 End: 12-22-2022 Oxycodone-Acetaminophen (Per cocet) 5-325 mg tablet Discontinued 1 {tbl} PO EVERY 6 HOURS as needed for pain 14 3 0 December 19, 2022 December 21, 2022 12:00am December 22, 2022 12:04am Carpal tunnel syndrome of right wrist Carpal tunnel syndrome, right upper limb Start: 03-13-2021 End: 08-22-2021 Oxycodone-Acetaminophen (Per cocet) 5-325 mg tablet Discontinued 1 {tbl} PO Q4H as needed for pain 18 3 0 March 28, 2021 March 30, 2021 1:00am March 31, 2021 1:04am Postoperative state Other specified postprocedural states azithromycin 250 mg oral tablet (20 sources) Macrolide Antimicrobial Start: 09-29-2022 End: 11-25-2022 take 1 tablet by mouth once daily Azithromycin 250 mg tablet Discontinued 250 mg PO DAILY 4 0 September 29, 2022 12:00am November 25, 2022 11:43am Start: 11-08-2020 End: 11-13-2020 take 2-5 tablets by mouth once daily Azithromycin (Zithromax Z-Tristen) 250 mg tablet Discontinued 0 PO .COMPLEX 6 0 November 08, 2020 12:00am November 13, 2020 9:36am take 500 mg today (day 1), then 250 mg for 4 days (days 2-5) PO benzonatate 200 mg oral capsule (20 sources) Non-narcotic Antitussive Start: 10-08-2023 End: 11-14-2023 take 1 capsule by mouth three times daily as needed for cough Benzonatate 200 mg capsule Discontinued 200 mg PO THREE TIMES A DAY as needed for cough 20 0 October 08, 2023 12:00am November 14, 2023 8:25am Start: 12-24-2019 End: 01-31-2020 Benzonatate (Tessalon Perles ) 100 mg capsule Discontinued 100 mg PO 2 to 3 times per day as needed for cough 90 0 December 24, 2019 1:00am January 31, 2020 2:09pm Start: 07-08-2018 take 1 capsule by [facility] every eight hours as needed benzonatate (TESSALON PERLES) 100 mg capsule Take 1 capsule by mouth three times daily as needed. 30 capsule 1 07/08/2018 Active cephalexin 500 mg oral capsule (10 sources) Cephalosporin Antibacterial Start: 06-19-2023 End: 06-24-2023 take 1 capsule by mouth every six hours Cephalexin 500 mg capsule Discontinued 500 mg PO EVERY 6 HOURS 20 5 0 June 19, 2023 12:00am June 23, 2023 12:00am June 24, 2023 12:06am Bilateral carpal tunnel syndrome Carpal tunnel syndrome, bilateral upper limbs possible infection cholecalciferol 0.125 mg oral capsule (20 sources) Vitamin D Start: 07-05-2020 End: 08-07-2022 Cholecalciferol (Vitamin D3) 125 mcg (5,000 unit) capsule Discontinued 125 ug PO .[facility] January 02, 2021 4:03pm August 07, 2022 10:00am ciprofloxacin 3 mg/ml / dexamethasone 1 mg/ml otic suspension (20 sources) Corticosteroid, Quinolone Antimicrobial Start: 11-06-2020 End: 11-08-2020 Ciprofloxacin-Dexame thasone (Ciprodex) 0.3-0.1 % drops,suspension Discontinued 4 NMA OTIC TWICE A DAY 7.5 7 0 November 06, 2020 12:00am November 12, 2020 12:00am November 08, 2020 8:02am Start: 11-06-2020 End: 11-08-2020 Ciprofloxacin-Dexamethasone (Ciprodex) 0.3-0.1 % drops,suspension Discontinued 4 DRP OTIC TWICE A DAY 7.5 7 November 06, 2020 12:00am November 08, 2020 8:02am clindamycin 150 mg oral capsule (20 sources) Lincosamide Antibacterial Start: 02-27-2023 End: 03-06-2023 take 1 capsule by mouth every six hours Clindamycin Hcl 150 mg capsule Discontinued 150 mg PO EVERY 6 HOURS 28 7 0 February 27, 2023 1:00am March 05, 2023 1:00am March 06, 2023 1:04am Start: 08-10-2020 End: 08-20-2020 take 1 capsule by mouth every eight hours Clindamycin Hcl 300 mg capsule Discontinued 300 mg PO Q8H 30 10 0 August 10, 2020 12:00am August 19, 2020 12:00am August 20, 2020 12:01am colestipol hydrochloride 1000 mg oral tablet (20 sources) Bile Acid Sequestrant Start: 11-18-2017 End: 02-12-2019 take 1 tablet by mouth every other day Colestipol 1 GM tablet Discontinued 1 g PO EVERY OTHER DAY November 18, 2017 12:00am February 12, 2019 12:22pm cyclobenzaprine hydrochloride 10 mg oral tablet (20 sources) Muscle Relaxant Start: 03-29-2020 End: 05-02-2020 take 5-10 mg by mouth at bedtime as needed for muscle spasms Cyclobenzaprine 10 mg tablet Discontinued 5 - 10 mg PO BEDTIME as needed for muscle spasm 30 1 March 29, 2020 1:00am May 02, 2020 12:11pm Start: 02-08-2019 End: 04-05-2019 take 1 tablet by mouth three times daily as needed for muscle spasms Cyclobenzaprine 10 MG tablet Discontinued 10 mg PO THREE TIMES A DAY as needed for Muscle Spasm 20 0 February 08, 2019 1:00am April 05, 2019 11:08am Desog-E.Estradiol/E.Estradio l (20 sources) Progestin, Estrogen Start: 03-27-2020 End: 03-30-2020 take 1 tablet by mouth once daily Desog-E.Estradiol/E.Estradiol (Kariva (28)) 0.15-0.02 mgx21 /0.01 mg x 5 tablet Discontinued 1 {tbl} PO DAILY 84 5 March 27, 2020 9:20am March 30, 2020 5:02pm Active pills only for continuous cycling. Start: 03-27-2020 End: 03-30-2020 take 1 tablet by mouth once daily Desog-E.Estradiol/E.Estradiol (Kariva (2 8)) 0.15-0.02 mgx21 /0.01 mg x 5 tablet Discontinued 1 {tbl} PO DAILY 84 March 27, 2020 9:20am March 30, 2020 5:02pm Active pills only for continuous cycling. Start: 03-27-2020 End: 03-30-2020 take 1 tablet by mouth once daily Desog-E.Estradiol/E.Estradiol (Kariva (2 8)) 0.15-0.02 mgx21 /0.01 mg x 5 tablet Discontinued 1 TABLET PO DAILY 84 March 27, 2020 9:20am March 30, 2020 5:02pm Active pills only for continuous cycling. Start: 03-27-2020 End: 03-30-2020 take 1 tablet by mouth once daily Desog-E.Estradiol/E.Estradiol (Kariva (2 8)) 0.15-0.02 mgx21 /0.01 mg x 5 tablet Discontinued 1 TABLET PO DAILY March 27, 2020 8:20am March 30, 2020 4:02pm Active pills only for continuous cycling. Start: 02-15-2020 End: 03-27-2020 take 1 tablet by mouth once daily Desog-E.Estradiol/E.Estradiol (Kariva (2 8)) 0.15-0.02 mgx21 /0.01 mg x 5 tablet Discontinued 1 {tbl} PO DAILY February 15, 2020 3:03pm March 27, 2020 9:20am Active pills only for continuous cycling. Start: 02-15-2020 End: 03-27-2020 take 1 tablet by mouth once daily Desog-E.Estradiol/E.Estradiol (Kariva (2 8)) 0.15-0.02 mgx21 /0.01 mg x 5 tablet Discontinued 1 {tbl} PO DAILY February 15, 2020 3:03pm March 27, 2020 9:20am Active pills only for continuous cycling. Start: 02-15-2020 End: 03-27-2020 take 1 tablet by mouth once daily Desog-E.Estradiol/E.Estradiol (Kariva (2 8)) 0.15-0.02 mgx21 /0.01 mg x 5 tablet Discontinued 1 TABLET PO DAILY February 15, 2020 3:03pm March 27, 2020 9:20am Active pills only for continuous cycling. Start: 02-15-2020 End: 03-27-2020 take 1 tablet by mouth once daily Desog-E.Estradiol/E.Estradiol (Kariva (2 8)) 0.15-0.02 mgx21 /0.01 mg x 5 tablet Discontinued 1 TABLET PO DAILY February 15, 2020 2:03pm March 27, 2020 8:20am Active pills only for continuous cycling. Start: 12-01-2019 End: 02-15-2020 take 0.15 tablet by mouth once daily Desog-E.Estradiol/E.Estradiol (Kariva (2 8)) 0.15-0.02 mgx21 /0.01 mg x 5 tablet Discontinued 1 {tbl} PO DAILY December 01, 2019 12:00am February 15, 2020 3:04pm Start: 12-01-2019 End: 02-15-2020 take 0.15 tablet by mouth once daily Desog-E.Estradiol/E.Estradiol (Kariva (2 8)) 0.15-0.02 mgx21 /0.01 mg x 5 tablet Discontinued 1 TABLET PO DAILY December 01, 2019 12:00am February 15, 2020 3:04pm Start: 12-01-2019 End: 02-15-2020 take 0.15 tablet by mouth once daily Desog-E.Estradiol/E.Estradiol (Kariva (2 8)) 0.15-0.02 mgx21 /0.01 mg x 5 tablet Discontinued 1 TABLET PO DAILY November 30, 2019 11:00pm February 15, 2020 2:04pm Start: 06-21-2019 Desogestrel-Et hinyl Estradiol (KARIVA, 28,) 0.15-0.02 mgx21 /0.01 mg x 5 per tablet Indications: Menorrhagia with regular cycle , Menstrual migraine without status migrainosus, not intractable Take continuous up to 12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 Family History Mother Hypertension Arthritis Anemia Father Diabetes Anesthesia complication Brother Brain cancer Anxiety Sister Asthma Grandmother CVA (cerebral vascular accident) Daughter Anxiety Grandfather COPD (chronic obstructive pulmonary disease) CVA (cerebral vascular accident) Other Seizures Social History household members: spouse and children number of children: 3 current occupational status: employed current occupation: [employer] history of recent travel: No sexually active: Yes Smoking Status: Former smoker alcohol intake: never substance use type: does not use caffeine: No what type (more content not included)... Normal [facility] Thyroid Stim Hormone (TSH)on 11-29-2024 TSH 2.370 uIU/mL Normal 0.300-4.20 0 [facility] Comment on above: Performed By: #### L 501.9520, L3100.5125, L3300.1750 ####[facility] [address] [place], [address] Neurology Visit Reporton Neurology Visit Report [facility] [address], [address] [place] [address] OFFICE VISIT Date of Service: 10/26/24 MR#: [id number] Acct: [id number] Name: ANA MARIA JOSEPH ANN Rep #: [id number] : 1985 Provider: Dr. Harry greer MD Age/Sex: 39/F [place] [facility] Status: Signed HPI HPI Chief Complaint: Details: Interim History: Ana Maria returns for follow-up. She has a history of hypertension, chronic neck and back pain, GERD, irritable bowel syndrome, vertigo, tinnitus (right-sided), idiopathic small fiber neuropathy, hysterectomy with right salpingo-oophorectomy and right salpingectomy. She has been experiencing headaches since she was a teenager. In years prior, her headaches had been occurring about twice per week and lasting 2-3 days each (> 15 headache days per month). Her headaches are throbbing in character and she experiences associated photophobia, phonophobia, and nausea. Emotional stress is a trigger for her headaches. She experiences visual scintillations with her headaches that may last up to 2 hours. Her headaches have often been severe. She has also had ice pick headaches described as episodes of stabbing pain localized to the right temporal region, which last from minutes to hours; these had occurred frequently for a number of years. A one-week course of indomethacin 25mg TID was of benefit for her ice-pick headaches. Nortriptyline 25mg QHS was not of benefit for her headaches (a higher dose caused worsening of tinnitus). Amitriptyline was not of benefit for her headaches. Topiramate caused worsening of the numbness and tingling in her hands in feet, as well as altered perception of taste. She started propranolol in 2020 (for blood pressure control and headache prophylaxis) and is of benefit for headache prophylaxis. Due to bradycardia her dose of propranolol was previously reduced to 40 mg daily by her admitting supervisor who was prescribing this medication. She started Aimovig in 2020 and this has been of benefit in reducing her headache frequency. She has had a total of about 10 days of headache in the past year. Ubrelvy 100 mg (50 mg was not of benefit) is of benefit for her headaches. Eletriptan 20 mg has been of modest benefit for her migraines. Rizatriptan was sedating and the patient was unable to take it while at work. Sumatriptan was not well tolerated. Ondansetron has been of benefit for her headache-associated nausea. She has a positive family history of cerebral aneurysm. A head MRA and brain MRI in March 2020 were normal. Since at least 2019, she has been experiencing right-sided neck pain. Chiropractic therapy has been of some benefit for her neck pain. Tizanidine 8mg PO QHS has been of benefit for her neck pain (daytime doses made her tired). Cyclobenzaprine was not of benefit. A cervical spine x-ray from 03/2019 was normal. A cervical MRI from 05/18/20 revealed straightening of normal cervical lordosis without subluxation, and was otherwise unremarkable. She has numbness and tingling in her hands and EMG/nerve conduction studies in 2021 reveal a bilateral carpal tunnel syndrome. She has seen an orthopedic surgeon. A right carpal tunnel corticosteroid injection by her orthopedic surgeon was not of benefit. She had bilateral carpal tunnel surgery which was effective in alleviating her symptoms in the right hand however she continues to experience left hand numbness and she had subsequent repeat left carpal tunnel surgery in November 2023 and this was of modest benefit. She continues to have residual numbness in the left fourth finger on the lateral side. She was previously treated with gabapentin for neuropathy. She began to experience intermittent tinnitus in 2017 and since 2021 this has been continuous. She had several episodes of vertigo over the years the last of which occurred in 2021. Meclizine was of some benefit. A hearing test in 2020 revealed bilateral hearing loss was detected. She has seen an ENT (Dr. Danielle) for management of her hearing loss and tinnitus. She no longer uses hearing aids. She previously had tingling in the feet; the tingling in her feet has resolved. A previous skin biopsy revealed small fiber polyneuropathy. Physical Exam: Neuro: The patient is awake and alert and responds appropriately Heart: Regular rate and rhythm Supplemental Info EMG/NCS of right upper extremity (04/11/2015): 1. Mild abnormalities in the nerve conduction study consistent with mild carpal tunnel syndrome at the wrist, this may be an incidental finding and should be clinically correlated, however. 2. Normal EMG of the right upper extremity is noted. Cervical spine x-ray (04/07/2019): IMPRESSION: 1. Normal cervical xray. These images were reviewed on 04/04/2020. Brain MRI with and without contrast with attention to internal auditory canals (04/10/2020): Normal unenhanced and enhanced MRI of the bila (more content not included)... Normal [facility] Absolute lymphocyte countOrd ered By: HEALTH ASSESSMENT on 10-21-2024 Lymphocytes Auto (Unsp spec) [#/Vol] 2.20 10*3/uL 0.83-4.51 [facility] Absolute neutrophil countOrd ered By: HEALTH ASSESSMENT on 10-21-2024 Neutrophils (Bld) [#/Vol] 5.0 10*3/uL 2.0-7.7 [facility] Absolute nucleated red blood cell countOrdered By: HEALTH ASSESSMENT on 10-21-2024 Nucleated RBC (Bld) [#/Vol] 0.00 10*3/uL 0-5 [facility] Anion gap in Serum or Plasma Ordered By: HEALTH ASSESSMENT on 10-21-2024 Anion gap [Moles/Vol] 12 mmol/L 5-15 [facility] BUN/creatinine ratioOrdered By: HEALTH ASSESSMENT on 10-21-2024 Urea nitrogen/Creatinine [Mass ratio] 11.7 mg/mg 10- [facility] Bilirubin directOrdered By: HEALTH ASSESSMENT on 10-21-2024 Bilirubin.direct [Mass/Vol] 0.21 mg/dL 0.00-0.30 [facility] Bilirubin, totalOrdered By: HEALTH ASSESSMENT on 10-21-2024 Bilirubin [Mass/Vol] 0.55 mg/dL 0.00-1.30 [facility] Blood band neutrophil count as percentage of total leukocytesOrdered By: HEALTH ASSESSMENT on 10-21-2024 Band form neutrophils/100 WBC (Bld) 61.8 % 47-70 [facility] CBC, Employeeon 10-21-2024 Absolute Lymph 2.20 X10 3/uL Normal 0.83-4.51 [facility] Comment on above: Performed By: #### L 400.0100, L500.2900, L100.0200 ####[facility] [address] [place], [address] Absolute Neut 5.0 X10 3/uL Normal 2.0-7.7 [facility] Comment on above: Performed By: #### L 400.0100, L500.2900, L100.0200 ####[facility] [address] [place], [address] Basophils/100 WBC (Bld) 0.6 % Normal 0-1 [facility] Comment on above: Performed By: #### L 400.0100, L500.2900, L100.0200 ####[facility] [address] [place], [address] Eosinophils/100 WBC (Bld) 1.9 % Normal 0-5 [facility] Comment on above: Performed By: #### L 400.0100, L500.2900, L100.0200 ####[facility] [address] [place], [address] Erythrocyte distribution width (RBC) [Ratio] 12.7 % Normal 11.6-14.6 [facility] Comment on above: Performed By: #### L 400.0100, L500.2900, L100.0200 ####[facility] [address] [place], [address] Hematocrit (Bld) [Volume fraction] 35.6 % Low 37-47 [facility] Comment on above: Performed By: #### L 400.0100, L500.2900, L100.0200 ####[facility] [address] [place], [address] Hemoglobin (Bld) [Mass/Vol] 12.5 g/dL Normal 12.0-15.0 [facility] Comment on above: Performed By: #### L 400.0100, L500.2900, L100.0200 ####[facility] [address] [place], [address] Lymphocytes/100 WBC (Bld) 27.2 % Normal 19-41 [facility] Comment on above: Performed By: #### L 400.0100, L500.2900, L100.0200 ####[facility] [address] [place], [address] MCH (RBC) [Entitic mass] 31.6 pg Normal 27.0-32.0 [facility] Comment on above: Performed By: #### L 400.0100, L500.2900, L100.0200 ####[facility] [address] [place], [address] MCHC (RBC) [Mass/Vol] 35.1 g/dL Normal 32-36 [facility] Comment on above: Performed By: #### L 400.0100, L500.2900, L100.0200 ####[facility] [address] [place], [address] MCV (RBC) [Entitic vol] 89.9 fL Normal 81-99 [facility] Comment on above: Performed By: #### L 400.0100, L500.2900, L100.0200 ####[facility] [address] [place], [address] Monocytes/100 WBC (Bld) 8.3 % Normal 0-10 [facility] Comment on above: Performed By: #### L 400.0100, L500.2900, L100.0200 ####[facility] [address] [place], [address] Neutrophils/100 WBC (Bld) 61.8 % Normal 47-70 [facility] Comment on above: Performed By: #### L 400.0100, L500.2900, L100.0200 ####[facility] [address] [place], [address] NRBC # 0.00 10 3/uL Normal 0-5 [facility] Comment on above: Performed By: #### L 400.0100, L500.2900, L100.0200 ####[facility] [address] [place], [address] Nucleated RBC (Bld) [#/Vol] 0 10*3/uL Normal 0-5 [facility] Comment on above: Performed By: #### L 400.0100, L500.2900, L100.0200 ####[facility] [address] [place], [address] Platelet mean volume (Bld) [Entitic vol] 10.2 fL Normal 6.2-12.0 [facility] Comment on above: Performed By: #### L 400.0100, L500.2900, L100.0200 ####[facility] [address] [place], [address] Platelets (Bld) [#/Vol] 309 10*3/uL Normal 150-450 [facility] Comment on above: Performed By: #### L 400.0100, L500.2900, L100.0200 ####[facility] [address] [place], [address] RBC (Bld) [#/Vol] 3.96 10*6/uL Low 4.2-5.4 [facility] Comment on above: Performed By: #### L 400.0100, L500.2900, L100.0200 ####[facility] [address] [place], [address] RDW SD 41.8 fl Normal 35.1-43.9 [facility] Comment on above: Performed By: #### L 400.0100, L500.2900, L100.0200 ####[facility] [address] [place], [address] WBC (Bld) [#/Vol] 8.1 10*3/uL Normal 4.4-11.0 [facility] Comment on above: Performed By: #### L 400.0100, L500.2900, L100.0200 ####[facility] [address] [place], [address] Calculated very low density lipoprotein (VLDL) cholesterol measurementOrdered By: HEALTH ASSESSMENT on 10-21-2024 Calculated very low density lipoprotein (VLDL) cholesterol measurement 18 mg/dL 5-40 [facility] Carbon dioxide, total [Moles /volume] in Central venous bloodOrdered By: HEALTH ASSESSMENT on 10-21-2024 CO2 [Moles/Vol] 23.3 mmol/L 21.0-32.0 [facility] Chloride assayOrdered By: HE ALTH ASSESSMENT on 10-21-2024 Chloride [Moles/Vol] 106 mmol/L 98-108 [facility] Employee Profileon LDH 190 U/L Normal 84-246 [facility] Comment on above: Performed By: #### L 400.0100, L500.2900, L100.0200 ####[facility] [address] [place], [address] Phosphate [Mass/Vol] 3.7 mg/dL Normal 2.7-4.5 [facility] Comment on above: Performed By: #### L 400.0100, L500.2900, L100.0200 ####[facility] [address] [place], [address] URIC 4.9 mg/dL Normal 2.6-6.0 [facility] Comment on above: Result Comment: The drugs N-Acetylcysteine and Metamizole may falsely depress this assay. Performed By: #### L 400.0100, L500.2900, L100.0200 ####[facility] [address] [place], [address] Erythrocyte distribution wid th ratioOrdered By: HEALTH ASSESSMENT on 10-21-2024 Erythrocyte distribution width (RBC) [Ratio] 12.7 % 11.6-14.6 [facility] Erythrocyte distribution wid th standard deviationOrdered By: HEALTH ASSESSMENT on 10-21-2024 Erythrocyte distribution width (RBC) [Ratio] 41.8 fl 35.1-43.9 [facility] Glomerular filtration rate ( GFR) estimation/1.73 sq m using serum, plasma, or whole bOrdered By: HEALTH ASSESSMENT on 10-21-2024 GFR/1.73 sq M.predicted among non-blacks MDRD (S/P/Bld) [Vol rate/Area] 88 mL/min/{1.73_m2} >60 [facility] Comment on above: mL/min/1.73m2 CKD-EP I Creatinine Equation (2020) Hematocrit Auto (Bld) [Volum e fraction]Ordered By: HEALTH ASSESSMENT on 10-21-2024 Hematocrit (Bld) [Volume fraction] 35.6 % Low 37-47 [facility] Hemoglobin measurementOrdere d By: HEALTH ASSESSMENT on 10-21-2024 Hemoglobin (Bld) [Mass/Vol] 12.5 g/dL 12.0-15.0 [facility] LDL calc ser/plasOrdered By: HEALTH ASSESSMENT on 10-21-2024 Cholesterol in LDL [Mass/Vol] 117 mg/dL [facility] Comment on above: Zdiniokmje=062-470 m g/dL & Higher Atfu=143 mg/dL or greaterFriedwald Equation for LDL-C Laboratory - Chemistry and C hemistry - challengeOrdered By: HEALTH ASSESSMENT on 10-21-2024 AST [Catalytic activity/Vol] 17 U/L <32 [facility] Lactate dehydrogenase (LDH) measurementOrdered By: HEALTH ASSESSMENT on 10-21-2024 LDH [Catalytic activity/Vol] 190 U/L 84-246 [facility] MCV (mean corpuscular volume ) determinationOrdered By: HEALTH ASSESSMENT on 10-21-2024 MCV (RBC) [Entitic vol] 89.9 fL 81-99 [facility] Mean corpuscular hemoglobin (MCH) determinationOrdered By: HEALTH ASSESSMENT on 10-21-2024 MCH (RBC) [Entitic mass] 31.6 pg 27.0-32.0 [facility] Mean corpuscular hemoglobin concentration (MCHC) determinationOrdered By: HEALTH ASSESSMENT on 10-21-2024 MCHC (RBC) [Mass/Vol] 35.1 g/dL 32-36 [facility] Mean platelet volume determi nationOrdered By: HEALTH ASSESSMENT on 10-21-2024 Platelet mean volume (Bld) [Entitic vol] 10.2 fL 6.2-12.0 [facility] Nucleated red blood cell per centageOrdered By: HEALTH ASSESSMENT on 10-21-2024 Nucleated RBC/100 WBC (Bld) [Ratio] 0 % 0-5 [facility] Platelet countOrdered By: HE ALTH ASSESSMENT on 10-21-2024 Platelets (Bld) [#/Vol] 309 10*3/uL 150-450 [facility] Potassium measurement (mass/ volume)Ordered By: HEALTH ASSESSMENT on 10-21-2024 Potassium (Unsp spec) [Mass/Vol] 3.5 mmol/L 3.3-5.1 [facility] RBC Auto (Bld) [#/Vol]Ordere d By: HEALTH ASSESSMENT on 10-21-2024 RBC (Bld) [#/Vol] 3.96 10*6/uL Low 4.2-5.4 [facility] Screening total cholesterol/ high density lipoprotein (HDL) cholesterol ratioOrdered By: HEALTH ASSESSMENT on 10-21-2024 Cholesterol.total/Jennifer sterol in HDL [Mass ratio] 3.28 {ratio} [facility] Serum creatinine measurement (mass/volume)Ordered By: HEALTH ASSESSMENT on 10-21-2024 Creatinine [Mass/Vol] 0.86 mg/dL 0.70-1.20 [facility] Serum globulin measurementOr dered By: HEALTH ASSESSMENT on 10-21-2024 Globulin (S) [Mass/Vol] 2.5 g/dL 2.2-4.2 [facility] Serum glucose measurement (m ass/volume)Ordered By: HEALTH ASSESSMENT on 10-21-2024 Glucose [Mass/Vol] 90 mg/dL 70-99 [facility] Serum or plasma alanine zimmer otransferase (ALT) measurementOrdered By: HEALTH ASSESSMENT on 10-21-2024 ALT [Catalytic activity/Vol] 16 U/L <35 [facility] Serum or plasma albumin milton urement (mass/volume)Ordered By: HEALTH ASSESSMENT on 10-21-2024 Albumin [Mass/Vol] 4.3 g/dL 3.5-5.0 [facility] Serum or plasma albumin/glob ulin mass ratioOrdered By: HEALTH ASSESSMENT on 10-21-2024 Albumin/Globulin [Mass ratio] 1.7 {ratio} 0.9-2.4 [facility] Serum or plasma alkaline musa sphatase measurementOrdered By: HEALTH ASSESSMENT on 10-21-2024 ALP [Catalytic activity/Vol] 42 U/L 35-104 [facility] Serum or plasma calcium milton urement (mass/volume)Ordered By: HEALTH ASSESSMENT on 10-21-2024 Calcium [Mass/Vol] 9.5 mg/dL 7.6-11.0 [facility] Serum or plasma cholesterol in HDL measurement (mass/volume)Ordered By: HEALTH ASSESSMENT on 10-21-2024 Cholesterol in HDL [Mass/Vol] 60 mg/dL >40 [facility] Comment on above: National Cholesterol Education Program (NCEP) guidelines:<40 mg/dL: Low HDL-cholesterol (major risk factor for CHD)>= 60 mg/dL: High HDL-cholesterol (negative risk factor for CHD)HDL-cholesterol is affected by a number of factors, e.g. smoking, exercise, hormones, sex and age. Serum or plasma cholesterol measurement (mass/volume)Ordered By: HEALTH ASSESSMENT on 10-21-2024 Cholesterol [Mass/Vol] 195 mg/dL <201 [facility] Comment on above: Cholesterol level, D esirable <200 mg/dLBorderline high cholesterol 200-239 mg/dLHigh cholesterol >=240 mg/dLRecommendations of the NCEP Adult Treatment Panel for the following risk-cutoff thresholds for the [place] population. Serum or plasma urea nitroge n measurement (mass/volume)Ordered By: HEALTH ASSESSMENT on 10-21-2024 Urea nitrogen [Mass/Vol] 10 mg/dL 4-19 [facility] Serum or plasma uric acid me asurement (mass/volume)Ordered By: HEALTH ASSESSMENT on 10-21-2024 Urate [Mass/Vol] 4.9 mg/dL 2.6-6.0 [facility] Comment on above: The drugs N-Acetylcy steine and Metamizole may falsely depress this assay. Sodium levelOrdered By: [facility] ASSESSMENT on 10-21-2024 Sodium [Moles/Vol] 141 mmol/L 133-145 [facility] Total proteinOrdered By: [facility] ASSESSMENT on 10-21-2024 Protein [Mass/Vol] 6.8 g/dL 5.9-8.4 [facility] Triglycerides measurementOrd ered By: HEALTH ASSESSMENT on 10-21-2024 Triglyceride [Mass/Vol] 92 mg/dL <199 [facility] Comment on above: The drugs N-Acetylcy steine and Metamizole may falsely depress this assay. Normal range: <150 mg/dLBorderline High: 150-199 mg/dLHigh: 200-499 mg/dLVery High: >500 mg/dL Urinalysis, Employeeon 10-21 BILIRUBIN URINE Normal Negative [facility] Comment on above: Order Comment: Urine , Random Result Comment: UTO Performed By: #### L 400.0100, L500.2900, L100.0200 ####[facility] [address] [place], [place], [id number] Clarity (U) Normal Clear [facility] Comment on above: Order Comment: Urine , Random Result Comment: UTO Performed By: #### L 400.0100, L500.2900, L100.0200 ####[facility] [address] [place], [place], [id number] Color (U) Normal Yellow [facility] Comment on above: Order Comment: Urine , Random Result Comment: UTO Performed By: #### L 400.0100, L500.2900, L100.0200 ####[facility] [address] [place], [address] GLUCOSE, UR Normal Normal [facility] Comment on above: Order Comment: Urine , Random Result Comment: UTO Performed By: #### L 400.0100, L500.2900, L100.0200 ####[facility] [address] [place], [address] KETONE UR Normal Negative [facility] Comment on above: Order Comment: Urine , Random Result Comment: UTO Performed By: #### L 400.0100, L500.2900, L100.0200 ####[facility] [address] [place], [address] LEUK ESTERASE Normal Negative [facility] Comment on above: Order Comment: Urine , Random Result Comment: UTO Performed By: #### L 400.0100, L500.2900, L100.0200 ####[facility] [address] [place], [address] Nitrite Ql (U) Normal Negative [facility] Comment on above: Order Comment: Urine , Random Result Comment: UTO Performed By: #### L 400.0100, L500.2900, L100.0200 ####[facility] [address] [place], [address] OCCULT BLOOD-UR Normal Negative [facility] Comment on above: Order Comment: Urine , Random Result Comment: UTO Performed By: #### L 400.0100, L500.2900, L100.0200 ####[facility] [address] [place], [address] pH UR Normal 5.0 - 8.0 [facility] Comment on above: Order Comment: Urine , Random Result Comment: UTO Performed By: #### L 400.0100, L500.2900, L100.0200 ####[facility] [address] [place], [address] PROT DIPSTX Normal Negative [facility] Comment on above: Order Comment: Urine , Random Result Comment: UTO Performed By: #### L 400.0100, L500.2900, L100.0200 ####[facility] [address] [place], [address] SP.GR. DIPSTX Normal 1.002-1.03 0 [facility] Comment on above: Order Comment: Urine , Random Result Comment: UTO Performed By: #### L 400.0100, L500.2900, L100.0200 ####[facility] [address] [place], [address] UR Preservative Normal [facility] Comment on above: Order Comment: Urine , Random Result Comment: UTO Performed By: #### L 400.0100, L500.2900, L100.0200 ####[facility] [address] [place], [address] UROBILI Normal Normal [facility] Comment on above: Order Comment: Urine , Random Result Comment: UTO Performed By: #### L 400.0100, L500.2900, L100.0200 ####[facility] [address] [place], [address] White blood cell (WBC) count Ordered By: HEALTH ASSESSMENT on 10-21-2024 WBC (Bld) [#/Vol] 8.1 10*3/uL 4.4-11.0 [facility] Anion gap in Serum or Plasma Ordered By: Ledy Foley on 09-17-2024 Anion gap [Moles/Vol] 11 mmol/L 5-15 [facility] BUN/creatinine ratioOrdered By: Ledy Foley on 09-17-2024 Urea nitrogen/Creatinine [Mass ratio] 11.8 mg/mg 10-20 [facility] Bilirubin, totalOrdered By: Ledy Foley on 09-17-2024 Bilirubin [Mass/Vol] 0.49 mg/dL 0.00-1.30 [facility] Carbon dioxide, total [Moles /volume] in Central venous bloodOrdered By: Ledy Foley on 09-17-2024 CO2 [Moles/Vol] 23.2 mmol/L 21.0-32.0 [facility] Chloride assayOrdered By: Chai Foley on 09-17-2024 Chloride [Moles/Vol] 107 mmol/L 98-108 [facility] Comprehensive Metabolic Prof ilon 09-17-2024 Albumin [Mass/Vol] 4.4 g/dL Normal 3.5-5.0 [facility] Comment on above: Performed By: #### L 500.4050 #### [facility] Laboratory [address] [place], [place], [id number] (230) Albumin/Globulin [Mass ratio] 1.7 {ratio} Normal 0.9-2.4 [facility] Comment on above: Performed By: #### L 500.4050 #### [facility] Laboratory [address] [place], [address] ALK PHOS 40 U/L Normal 35-104 [facility] Comment on above: Performed By: #### L 500.4050 #### [facility] Laboratory [address] [place], [address] ALT [Catalytic activity/Vol] 19 U/L Normal <=34 [facility] Comment on above: Performed By: #### L 500.4050 #### [facility] Laboratory [address] [place], [address] AST [Catalytic activity/Vol] 23 U/L Normal <=31 [facility] Comment on above: Performed By: #### L 500.4050 #### [facility] Laboratory [address] [place], [address] Bilirubin [Mass/Vol] 0.49 mg/dL Normal 0.00-1.30 [facility] Comment on above: Performed By: #### L 500.4050 #### [facility] Laboratory [address] [place], [address] BUN/CRE 11.8 RATIO Normal 10-20 [facility] Comment on above: Performed By: #### L 500.4050 #### [facility] Laboratory [address] [place], [address] Calcium [Mass/Vol] 9.7 mg/dL Normal 7.6-11.0 [facility] Comment on above: Performed By: #### L 500.4050 #### [facility] Laboratory [address] [place], [address] Chloride [Moles/Vol] 107 mmol/L Normal 98-108 [facility] Comment on above: Performed By: #### L 500.4050 #### [facility] Laboratory [address] [place], [address] CO2 [Moles/Vol] 23.2 mmol/L Normal 21.0-32.0 [facility] Comment on above: Performed By: #### L 500.4050 #### [facility] Laboratory [address] [place], [address] Creatinine [Mass/Vol] 0.99 mg/dL Normal 0.70-1.20 [facility] Comment on above: Performed By: #### L 500.4050 #### [facility] Laboratory [address] [place], [address] GAP 11 Normal 5-15 [facility] Comment on above: Performed By: #### L 500.4050 #### [facility] Laboratory [address] [place], [address] GFR/1.73 sq M.predicted among non-blacks MDRD (S/P/Bld) [Vol rate/Area] 74 mL/min/{1.73_m2} Normal >60 [facility] Comment on above: Result Comment: mL/m in/1.73m2 CKD-EPI Creatinine Equation (2020) Performed By: #### L 500.4050 #### [facility] Laboratory [address] [place], [address] Globulin (S) [Mass/Vol] 2.6 g/dL Normal 2.2-4.2 [facility] Comment on above: Performed By: #### L 500.4050 #### [facility] Laboratory [address] [place], [address] Glucose [Mass/Vol] 93 mg/dL Normal 70-99 [facility] Comment on above: Performed By: #### L 500.4050 #### [facility] Laboratory [address] [place], [address] Potassium [Moles/Vol] 4.1 mmol/L Normal 3.3-5.1 [facility] Comment on above: Performed By: #### L 500.4050 #### [facility] Laboratory [address] [place], [address] Sodium [Moles/Vol] 141 mmol/L Normal 133-145 [facility] Comment on above: Performed By: #### L 500.4050 #### [facility] Laboratory [address] [place], [address] T PROT 7.0 g/dL Normal 5.9-8.4 [facility] Comment on above: Performed By: #### L 500.4050 #### [facility] Laboratory [address] [place], [address] Urea nitrogen [Mass/Vol] 12 mg/dL Normal 4-19 [facility] Comment on above: Performed By: #### L 500.4050 #### [facility] Laboratory [address] [place], [address] Glomerular filtration rate ( GFR) estimation/1.73 sq m using serum, plasma, or whole bOrdered By: Ledy Foley on 09-17-2024 GFR/1.73 sq M.predicted among non-blacks MDRD (S/P/Bld) [Vol rate/Area] 74 mL/min/{1.73_m2} >60 [facility] Comment on above: mL/min/1.73m2 CKD-EP I Creatinine Equation (2020) Laboratory - Chemistry and C hemistry - challengeOrdered By: Ledy Foley on 09-17-2024 AST [Catalytic activity/Vol] 23 U/L <32 [facility] Potassium measurement (mass/ volume)Ordered By: Shalarupinder Foley on 09-17-2024 Potassium (Unsp spec) [Mass/Vol] 4.1 mmol/L 3.3-5.1 [facility] Serum creatinine measurement (mass/volume)Ordered By: Ledy Foley on 09-17-2024 Creatinine [Mass/Vol] 0.99 mg/dL 0.70-1.20 [facility] Serum globulin measurementOr dered By: Ledy Foley on 09-17-2024 Globulin (S) [Mass/Vol] 2.6 g/dL 2.2-4.2 [facility] Serum glucose measurement (m ass/volume)Ordered By: Ledy Foley on 09-17-2024 Glucose [Mass/Vol] 93 mg/dL 70-99 [facility] Serum or plasma alanine zimmer otransferase (ALT) measurementOrdered By: Ledy Foley on 09-17-2024 ALT [Catalytic activity/Vol] 19 U/L <35 [facility] Serum or plasma albumin milton urement (mass/volume)Ordered By: Ledy Foley on 09-17-2024 Albumin [Mass/Vol] 4.4 g/dL 3.5-5.0 [facility] Serum or plasma albumin/glob ulin mass ratioOrdered By: [facility] on 09-17-2024 Albumin/Globulin [Mass ratio] 1.7 {ratio} 0.9-2.4 [facility] Serum or plasma alkaline musa sphatase measurementOrdered By: Shalarupinder Foley on 09-17-2024 ALP [Catalytic activity/Vol] 40 U/L 35-104 [facility] Serum or plasma calcium milton urement (mass/volume)Ordered By: Ledy Foley on 09-17-2024 Calcium [Mass/Vol] 9.7 mg/dL 7.6-11.0 [facility] Serum or plasma urea nitroge n measurement (mass/volume)Ordered By: Aaronn Beam on 09-17-2024 Urea nitrogen [Mass/Vol] 12 mg/dL 4-19 [facility] Sodium levelOrdered By: Shala jarad Beam on 09-17-2024 Sodium [Moles/Vol] 141 mmol/L 133-145 [facility] Total proteinOrdered By: Art aguirreun Beam on 09-17-2024 Protein [Mass/Vol] 7.0 g/dL 5.9-8.4 [facility] 12 Lead EKGon 09-07-2024 12 Lead EKG [facility] Cardi[facility] Services [address] [place] [address] 12 Lead EKG 09/07/24 1120 MR#: [id number] Acct: [id number] Name: ANA MARIA JOSEPH ANN Rep #: [id number] : 1985 39 From: Daniel Welch MD Attending Dr: Status: DEP ER Ordering Dr: Sergo Olsen MD Date: 09/07/24 Location: ED Sex: F C Admitted: Test Reason : CHEST PAIN Blood Pressure : */* mmHG Vent. Rate : 57 BPM Atrial Rate : 57 BPM P-R Int : 154 ms QRS Dur : 86 ms QT Int : 396 ms P-R-T Axes : 15 11 0 degrees QTcB Int : 385 ms Sinus bradycardia Otherwise normal ECG Confirmed by Daniel Welch ([id number]), pictures editor DAVEY KILGORE ([id number]) on 09/08/2024 1:48:45 PM Referred By: Confirmed By: Daniel Welch 09/08/24 1348 Date Daniel Welch MD CC: HANG Batista; Dr. Sergo Olsen MD Signed Normal [facility] Absolute lymphocyte countOrd ered By: Sergo Olsen on 09-07-2024 Lymphocytes Auto (Unsp spec) [#/Vol] 1.98 10*3/uL 0.83-4.51 [facility] Absolute neutrophil countOrd ered By: Sergodiego Olsen on 09-07-2024 Neutrophils (Bld) [#/Vol] 5.8 10*3/uL 2.0-7.7 [facility] Anion gap in Serum or Plasma Ordered By: Sergodiego Olsen on 09-07-2024 Anion gap [Moles/Vol] 13 mmol/L 07-01 [facility] Automated lymphocyte count a s percentage of total leukocytesOrdered By: Sergo Olsen on 09-07-2024 Lymphocytes/100 WBC Auto (Unsp spec) 23.5 % [facility] BUN/creatinine ratioOrdered By: Sergo Olsen on 09-07-2024 Urea nitrogen/Creatinine [Mass ratio] 14.9 mg/mg 12-06 [facility] Basic Metabolic Profile (BMP )on 09-07-2024 BUN/CRE 14.9 RATIO Normal 12-06 [facility] Comment on above: Performed By: #### L 100.0100, L500.2500, L501.4021 #### [facility] Laboratory [address] [place], [address] Calcium [Mass/Vol] 9.6 mg/dL Normal 7.6-11.0 [facility] Comment on above: Performed By: #### L 100.0100, L500.2500, L501.4021 #### [facility] Laboratory [address] [place], [address] Chloride [Moles/Vol] 105 mmol/L Normal 98-108 [facility] Comment on above: Performed By: #### L 100.0100, L500.2500, L501.4021 #### [facility] Laboratory [address] [place], [address] CO2 [Moles/Vol] 21.8 mmol/L Normal 21.0-32.0 [facility] Comment on above: Performed By: #### L 100.0100, L500.2500, L501.4021 #### [facility] Laboratory [address] [place], [address] Creatinine [Mass/Vol] 0.94 mg/dL Normal 0.70-1.20 [facility] Comment on above: Performed By: #### L 100.0100, L500.2500, L501.4021 #### [facility] Laboratory [address] [place], [address] ECRCL 91.98 ml/min Normal 50-250 [facility] Comment on above: Performed By: #### L 100.0100, L500.2500, L501.4021 #### [facility] Laboratory [address] [place], [address] GAP 13 Normal 5-15 [facility] Comment on above: Performed By: #### L 100.0100, L500.2500, L501.4021 #### [facility] Laboratory [address] [place], [address] GFR/1.73 sq M.predicted among non-blacks MDRD (S/P/Bld) [Vol rate/Area] 78 mL/min/{1.73_m2} Normal >60 [facility] Comment on above: Result Comment: mL/m in/1.73m2 CKD-EPI Creatinine Equation (2020) Performed By: #### L 100.0100, L500.2500, L501.4021 #### [facility] Laboratory [address] [place], [address] Glucose [Mass/Vol] 81 mg/dL Normal 70-99 [facility] Comment on above: Performed By: #### L 100.0100, L500.2500, L501.4021 #### [facility] Laboratory [address] [place], [address] Potassium [Moles/Vol] 3.5 mmol/L Normal 3.3-5.1 [facility] Comment on above: Performed By: #### L 100.0100, L500.2500, L501.4021 #### [facility] Laboratory [address] [place], [address] Sodium [Moles/Vol] 140 mmol/L Normal 133-145 [facility] Comment on above: Performed By: #### L 100.0100, L500.2500, L501.4021 #### [facility] Laboratory [address] [place], [address] Urea nitrogen [Mass/Vol] 14 mg/dL Normal 4-19 [facility] Comment on above: Performed By: #### L 100.0100, L500.2500, L501.4021 #### [facility] Laboratory [address] [place], [address] Basophil percentageOrdered B y: Sergo Olsen on 09-07-2024 Basophils/100 WBC (Bld) 0.5 % 0-1 [facility] CBC W/Diff, Automatedon 08-18 Absolute Lymph 1.98 X10 3/uL Normal 0.83-4.51 [facility] Comment on above: Performed By: #### L 100.0100, L500.2500, L501.4021 #### [facility] Laboratory [address] [place], [address] Absolute Neut 5.8 X10 3/uL Normal 2.0-7.7 [facility] Comment on above: Performed By: #### L 100.0100, L500.2500, L501.4021 #### [facility] Laboratory [address] [place], [address] Basophils/100 WBC (Bld) 0.5 % Normal 0-1 [facility] Comment on above: Performed By: #### L 100.0100, L500.2500, L501.4021 #### [facility] Laboratory [address] [place], [address] Eosinophils/100 WBC (Bld) 0.9 % Normal 0-5 [facility] Comment on above: Performed By: #### L 100.0100, L500.2500, L501.4021 #### [facility] Laboratory [address] [place], [address] Erythrocyte distribution width (RBC) [Ratio] 12.9 % Normal 11.6-14.6 [facility] Comment on above: Performed By: #### L 100.0100, L500.2500, L501.4021 #### [facility] Laboratory [address] [place], [address] Hematocrit (Bld) [Volume fraction] 36.2 % Low 37-47 [facility] Comment on above: Performed By: #### L 100.0100, L500.2500, L501.4021 #### [facility] Laboratory [address] [place], [address] Hemoglobin (Bld) [Mass/Vol] 12.5 g/dL Normal 12.0-15.0 [facility] Comment on above: Performed By: #### L 100.0100, L500.2500, L501.4021 #### [facility] Laboratory [address] [place], [address] IG% 0.200 Normal 0.0-0.9 [facility] Comment on above: Result Comment: IG% - Immature Granulocytes (promyelocytes, myelocytes and metamyelocytes) > 1% indicates that a LEFT SHIFT is Present. Performed By: #### L 100.0100, L500.2500, L501.4021 #### [facility] Laboratory [address] [place], [address] Lymphocytes/100 WBC (Bld) 23.5 % Normal 19-41 [facility] Comment on above: Performed By: #### L 100.0100, L500.2500, L501.4021 #### [facility] Laboratory [address] [place], [address] MCH (RBC) [Entitic mass] 31.6 pg Normal 27.0-32.0 [facility] Comment on above: Performed By: #### L 100.0100, L500.2500, L501.4021 #### [facility] Laboratory [address] [place], [address] MCHC (RBC) [Mass/Vol] 34.5 g/dL Normal 32-36 [facility] Comment on above: Performed By: #### L 100.0100, L500.2500, L501.4021 #### [facility] Laboratory [address] [place], [address] MCV (RBC) [Entitic vol] 91.4 fL Normal 81-99 [facility] Comment on above: Performed By: #### L 100.0100, L500.2500, L501.4021 #### [facility] Laboratory [address] [place], [address] Monocytes/100 WBC (Bld) 6.2 % Normal 0-10 [facility] Comment on above: Performed By: #### L 100.0100, L500.2500, L501.4021 #### [facility] Laboratory [address] [place], [address] Neutrophils/100 WBC (Bld) 68.7 % Normal 47-70 [facility] Comment on above: Performed By: #### L 100.0100, L500.2500, L501.4021 #### [facility] Laboratory [address] [place], [address] Nucleated RBC (Bld) [#/Vol] 0 10*3/uL Normal 0-5 [facility] Comment on above: Performed By: #### L 100.0100, L500.2500, L501.4021 #### [facility] Laboratory [address] [place], [address] Platelet mean volume (Bld) [Entitic vol] 9.9 fL Normal 6.2-12.0 [facility] Comment on above: Performed By: #### L 100.0100, L500.2500, L501.4021 #### [facility] Laboratory [address] [place], [address] Platelets (Bld) [#/Vol] 259 10*3/uL Normal 150-450 [facility] Comment on above: Performed By: #### L 100.0100, L500.2500, L501.4021 #### [facility] Laboratory [address] [place], [address] RBC (Bld) [#/Vol] 3.96 10*6/uL Low 4.2-5.4 [facility] Comment on above: Performed By: #### L 100.0100, L500.2500, L501.4021 #### [facility] Laboratory [address] [place], [address] RDW SD 43.4 fl Normal 35.1-43.9 [facility] Comment on above: Performed By: #### L 100.0100, L500.2500, L501.4021 #### [facility] Laboratory [address] [place], [address] WBC (Bld) [#/Vol] 8.4 10*3/uL Normal 4.4-11.0 [facility] Comment on above: Performed By: #### L 100.0100, L500.2500, L501.4021 #### [facility] Laboratory [address] [place], [address] Carbon dioxide, total [Moles /volume] in Central venous bloodOrdered By: Sergo Olsen on 09-07-2024 CO2 [Moles/Vol] 21.8 mmol/L 21.0-32.0 [facility] Chest 1 View (Portable)on Chest 1 View (Portable) [facility] Imaging Services [address] [place] [address] Chest 1 View (Portable) MR#: [id number] Acct: [id number] Name: ANA MARIA JOSEPH ANN Rep #: [id number] : 1985 F 39 From: Elvira Greer nd, MD PCP: HANG Jameson Status: REG ER Study: Chest 1 View (Portable) Date of Exam: 09/07/24 Exam# [id number] Ordering Dr: Sergo Olsen MD PROCEDURE: CHEST 1 VIEW (PORTABLE) 09/07/2024 REASON FOR EXAM: CHEST PAIN TECHNIQUE: Frontal view of the chest. COMPARISON: Chest radiograph 11/18/2017. FINDINGS: Hardware: None. Heart: The heart size is normal. Lungs: No focal consolidation, pleural effusion or pneumothorax. Bones: The bones are unremarkable. RAD/Chest 1 View (Portable) IMPRESSION: Negative Chest. Reading Location: [id number] CC: METAL FURNACE OPERATOR-C Angus Batista; Dr. Sergo Olsen MD Inserting Press Operator: Signed Normal [facility] Chloride assayOrdered By: Eyad Olsen on 09-07-2024 Chloride [Moles/Vol] 105 mmol/L 98-108 [facility] Emergency Department Summary on 09-07-2024 Emergency Department Summary [facility] Medical Records Department [address] [place] [address] Emergency Department Summary 09/07/24 MR#: [id number] Acct: [id number] Name: ANA MARIA JOSEPH ANN Rep #: [id number] : 1985 39 From: Sergo Olsen MD PCP: HANG Jameson Status:REG ER Location: ED HPI History of Present Illness Chief Complaint: Chest Pain Detail of Chief Complaint: Chest pressure that started last evening at rest Informant: patient Onset/Context/Timing Onset: Yesterday Activity at onset: sudden Timing: Continuous Quality: Positive for Heaviness and Pressure Location: Substernal Current Severity: Moderate Maximum Severity: Severe Worsened By: Nothing Relieved By: Nothing Associated Symptoms: Positive for Dyspnea; Negative for Nausea, Vomiting, Diaphoresis, Cough, Fever, Lightheadedness, Acid Reflux or Palpitations Narrative Narrative: Patient is a 39-year-old woman who presents with chest pressure that started at rest last evening approximately 1900. She had 20 to 30 minutes of tingling in her left upper extremity. [facility] is also been seen by Lilian [facility] at [facility]. Her most recent visit was a couple of years ago. She had an echo which revealed no structural abnormality. She had a Holter monitor which revealed no significant dysrhythmia or bradycardia. She presents today because of the chest pressure that has been unrelenting. Nothing makes it better or worse. It is not positional. It is not related to food. She denies history of VTE. She has no risk factors for VTE. She is not on hormonal therapy. She denies leg pain, swelling discoloration. Patient does have history of IBS. She also has history of pain in multiple areas. GERD, segmental and somatic dysfunction of the pelvic region, thoracic region, lumbar region and cervical region. She also has a history of generalized anxiety disorder. There is a history of bradycardia and she has been bradycardic on prior EKGs. Prior Similar Symptoms: No CVD Risk Factors: Positive for Hypertension; Negative for Diabetes, Hypercholesterolemia, Family History 1' PE Risk Factors: Negative for Recent Travel/Surgery, Recent Immobilization, Prior DVT or PE, Cancer or OCP + Smoking + >/=35 TAD Risk Factors: Positive for Hypertension and Family History; Negative for Marfan's Syndrome [facility] Medical History Left hip pain Cardiology follow-up encounter Acute conjunctivitis, left eye History of Holter monitoring Generalized anxiety disorder Vitamin deficiency Bilateral carpal tunnel syndrome Numbness and tingling in both hands Positive Tinel's sign Right ear impacted cerumen History of irregular heartbeat History of echocardiogram Chest pain History of stress test Bipolar 1 disorder Essential hypertension Abnormal EKG Bradycardia Wears glasses Wears dentures Wears partial dentures Alcohol use Migraine headache Hx of vertigo Gastric reflux Former smoker Hypertension Tinnitus Nonscarring hair loss Screening for thyroid disorder Tinnitus, right GI bleed vision problem with headache Neuropathy IBS (irritable bowel syndrome) H/O emotional problems History of eating disorder Chronic neck and back pain Chronic diarrhea H/O hemorrhoids Home Medications ???Medication ???Instructions ???Recorded ???Last Taken ???Type cetirizine 10 mg capsule (Zyrtec) 10 mg PO DAILY 02/15/20 Unknown H istory ibuprofen 800 mg tablet 800 mg PO Q8H PRN pain 7 days #30 03/13/21 Unknown Rx tabs dicyclomine 20 mg tablet 20 mg PO TID PRN abdominal pain Unknown Rx #180 tabs pantoprazole 40 mg tablet,delayed 40 mg PO DAILY reflux #90 tabs 06/11/23 05:00 Rx release (Protonix) buspirone 30 mg tablet 30 mg PO BID 90 days #180 tabs 01/0911/26/23 Rx cariprazine 1.5 mg capsule 3 mg PO DAILY 11/25/22 11/26/23 Hi story (Vraylar) cyanocobalamin (vitamin B-12) 100 100 mcg PO DAILY 12/06/22 Unknown History mcg tablet (Vitamin B-12) propranolol 20 mg tablet 20 mg PO DAILY BP 06/05/23 4 History eletriptan 20 mg tablet (Relpax) See Rx Instructions .Route 4 Unknown Rx .COMPLEX #9 tabs erenumab-aooe 140 mg/mL 140 mg subcut QMONTH migraines #1 09/29/23 Unknown Rx subcutaneous auto-injector mL (Aimovig Autoinjector) ondansetron HCl 4 mg tablet 4 mg PO TID PRN nausea and 4 Unknown Rx vomiting #90 tabs tizanidine 4 mg tablet (Zanaflex) 8 mg (2 x 4 mg) PO QHS #60 tabs 0 09/29/23 Unknown Rx ubrogepant 100 mg tablet 100 mg PO .COMPLEX migraine Unknown Rx headache #16 tabs empty vial 05/11/24 Unknown History semaglutide (weight loss) 0.5 1.5 mg subcut QWEEK 06/14/24 Unkno wn History mg/0.5 mL subcutaneous pe (more content not included)... Normal [facility] Eosinophil percentageOrdered By: Sergo Olsen on 09-07-2024 Eosinophils/100 WBC (Bld) 0.9 % 0-5 [facility] Erythrocyte distribution wid th ratioOrdered By: Sergo Olsen on 09-07-2024 Erythrocyte distribution width (RBC) [Ratio] 12.9 % 11.6-14.6 [facility] Erythrocyte distribution wid th standard deviationOrdered By: Sergo Olsen on 09-07-2024 Erythrocyte distribution width (RBC) [Ratio] 43.4 fl 35.1-43.9 [facility] Glomerular filtration rate ( GFR) estimation/1.73 sq m using serum, plasma, or whole bOrdered By: Sergo Olsen on 09-07-2024 GFR/1.73 sq M.predicted among non-blacks MDRD (S/P/Bld) [Vol rate/Area] 78 mL/min/{1.73_m2} >60 [facility] Comment on above: mL/min/1.73m2 CKD-EP I Creatinine Equation (2020) Hematocrit Auto (Bld) [Volum e fraction]Ordered By: Sergo Olsen on 09-07-2024 Hematocrit (Bld) [Volume fraction] 36.2 % Low 37-47 [facility] Hemoglobin measurementOrdere d By: Sergo Olsen on 09-07-2024 Hemoglobin (Bld) [Mass/Vol] 12.5 g/dL 12.0-15.0 [facility] Immature granulocytes/100 WB C Auto (Bld)Ordered By: Sergo Olsen on 09-07-2024 Immature granulocytes/100 WBC (Bld) 0.200 % 0.0-0.9 [facility] Comment on above: IG% - Immature Granu locytes (promyelocytes, myelocytes and metamyelocytes) > 1% indicates that a LEFT SHIFT is Present. L501.4021on 09-07-2024 Trop T High Sen < 6 Normal <=14 [facility] Comment on above: Performed By: #### L 100.0100, L500.2500, L501.4021 #### [facility] Laboratory [facility] [place], [address] MCV (mean corpuscular volume ) determinationOrdered By: Sergo Olsen on 09-07-2024 MCV (RBC) [Entitic vol] 91.4 fL 81-99 [facility] Mean corpuscular hemoglobin (MCH) determinationOrdered By: Sergo Olsen on 09-07-2024 MCH (RBC) [Entitic mass] 31.6 pg 27.0-32.0 [facility] Mean corpuscular hemoglobin concentration (MCHC) determinationOrdered By: Sergo Olsen on 09-07-2024 MCHC (RBC) [Mass/Vol] 34.5 g/dL 32-36 [facility] Mean platelet volume determi nationOrdered By: Sergo Olsen on 09-07-2024 Platelet mean volume (Bld) [Entitic vol] 9.9 fL 6.2-12.0 [facility] Monocyte percentageOrdered B y: Sergo Olsen on 09-07-2024 Monocytes/100 WBC (Bld) 6.2 % 0-10 [facility] Neutrophil percentageOrdered By: Sergo Olsen on 09-07-2024 Neutrophils/100 WBC (Bld) 68.7 % 47-70 [facility] Nucleated red blood cell per centageOrdered By: Sergo Olsen on 09-07-2024 Nucleated RBC/100 WBC (Bld) [Ratio] 0 % 0-5 [facility] Platelet countOrdered By: Eyad Olsen on 09-07-2024 Platelets (Bld) [#/Vol] 259 10*3/uL 150-450 [facility] Potassium measurement (mass/ volume)Ordered By: Sergo Olsen on 09-07-2024 Potassium (Unsp spec) [Mass/Vol] 3.5 mmol/L 3.3-5.1 [facility] RBC Auto (Bld) [#/Vol]Ordere d By: Sergo Olsen on 09-07-2024 RBC (Bld) [#/Vol] 3.96 10*6/uL Low 4.2-5.4 [facility] Serum creatinine measurement (mass/volume)Ordered By: Sergo Olsen on 09-07-2024 Creatinine [Mass/Vol] 0.94 mg/dL 0.70-1.20 [facility] Serum glucose measurement (m ass/volume)Ordered By: Sergo Olsen on 09-07-2024 Glucose [Mass/Vol] 81 mg/dL 70-99 [facility] Serum or plasma calcium milton urement (mass/volume)Ordered By: Sergo Olsen on 09-07-2024 Calcium [Mass/Vol] 9.6 mg/dL 7.6-11.0 [facility] Serum or plasma urea nitroge n measurement (mass/volume)Ordered By: Sergo Olsen on 09-07-2024 Urea nitrogen [Mass/Vol] 14 mg/dL 4-19 [facility] Sodium levelOrdered By: Sergo Olsen on 09-07-2024 Sodium [Moles/Vol] 140 mmol/L 133-145 [facility] Troponin T HS 2 HRon 025 Trop T High Sen < 6 Normal <=14 [facility] Comment on above: Performed By: #### L 499.0042 #### [facility] Laboratory [address] [place], [place], [id number] Troponin T HS 4 HRon 025 Trop T High Sen Normal <=14 [facility] Comment on above: Result Comment: PT D ISCHARGED Performed By: #### L 499.0043 #### [facility] Laboratory [address] [place], [place], [id number] Troponin T.cardiac [Mass/vol ume] in Serum or Plasma by High sensitivity methodOrdered By: Sergo Olsen on 09-07-2024 Troponin T.cardiac High sensitivity method [Mass/Vol] < 6 ng/L <14 [facility] Troponin T.cardiac High sensitivity method [Mass/Vol] < 6 ng/L <14 [facility] White blood cell (WBC) count Ordered By: Sergo Olsen on 09-07-2024 WBC (Bld) [#/Vol] 8.4 10*3/uL 4.4-11.0 [facility] Absolute lymphocyte countOrd ered By: Ledy Foley on 07-02-2024 Lymphocytes Auto (Unsp spec) [#/Vol] 1.87 10*3/uL 0.83-4.51 [facility] Absolute neutrophil countOrd ered By: Ledy Foley on 07-02-2024 Neutrophils (Bld) [#/Vol] 4.3 10*3/uL 2.0-7.7 [facility] Anion gap in Serum or Plasma Ordered By: Zebulun Beam on 07-02-2024 Anion gap [Moles/Vol] 10 mmol/L 5- [facility] Automated lymphocyte count a s percentage of total leukocytesOrdered By: Zebulun Beam on 07-02-2024 Lymphocytes/100 WBC Auto (Unsp spec) 27.0 % 19-41 [facility] BUN/creatinine ratioOrdered By: Zebulun Beam on 07-02-2024 Urea nitrogen/Creatinine [Mass ratio] 14.2 mg/mg 10-20 [facility] Basophil percentageOrdered B y: Zebulun Beam on 07-02-2024 Basophils/100 WBC (Bld) 0.7 % 0-1 [facility] Bilirubin, totalOrdered By: Zebulun Beam on 07-02-2024 Bilirubin [Mass/Vol] 0.43 mg/dL 0.00-1.30 [facility] CBC W/Diff, Automatedon 06-17 Absolute Lymph 1.87 X10 3/uL Normal 0.83-4.51 [facility] Comment on above: Performed By: #### L 500.4100, L501.9985, L501.9520, L506.1001, L500.4050, L100.0100, L503.0106 ####[facility] [address] [place], [address] Absolute Neut 4.3 X10 3/uL Normal 2.0-7.7 [facility] Comment on above: Performed By: #### L 500.4100, L501.9985, L501.9520, L506.1001, L500.4050, L100.0100, L503.0106 ####[facility] [address] [place], [address] Basophils/100 WBC (Bld) 0.7 % Normal 0-1 [facility] Comment on above: Performed By: #### L 500.4100, L501.9985, L501.9520, L506.1001, L500.4050, L100.0100, L503.0106 ####[facility] [address] [place], [address] Eosinophils/100 WBC (Bld) 2.2 % Normal 0-5 [facility] Comment on above: Performed By: #### L 500.4100, L501.9985, L501.9520, L506.1001, L500.4050, L100.0100, L503.0106 ####[facility] [address] [place], [address] Erythrocyte distribution width (RBC) [Ratio] 13.2 % Normal 11.6-14.6 [facility] Comment on above: Performed By: #### L 500.4100, L501.9985, L501.9520, L506.1001, L500.4050, L100.0100, L503.0106 ####[facility] [address] [place], [address] Hematocrit (Bld) [Volume fraction] 36.0 % Low 37-47 [facility] Comment on above: Performed By: #### L 500.4100, L501.9985, L501.9520, L506.1001, L500.4050, L100.0100, L503.0106 ####[facility] [address] [place], [address] Hemoglobin (Bld) [Mass/Vol] 12.1 g/dL Normal 12.0-15.0 [facility] Comment on above: Performed By: #### L 500.4100, L501.9985, L501.9520, L506.1001, L500.4050, L100.0100, L503.0106 ####[facility] [address] [place], [address] IG% 0.300 Normal 0.0-0.9 [facility] Comment on above: Result Comment: IG% - Immature Granulocytes (promyelocytes, myelocytes and metamyelocytes) > 1% indicates that a LEFT SHIFT is Present. Performed By: #### L 500.4100, L501.9985, L501.9520, L506.1001, L500.4050, L100.0100, L503.0106 ####[facility] [address] [place], [address] Lymphocytes/100 WBC (Bld) 27.0 % Normal 19-41 [facility] Comment on above: Performed By: #### L 500.4100, L501.9985, L501.9520, L506.1001, L500.4050, L100.0100, L503.0106 ####[facility] [address] [place], [address] MCH (RBC) [Entitic mass] 30.5 pg Normal 27.0-32.0 [facility] Comment on above: Performed By: #### L 500.4100, L501.9985, L501.9520, L506.1001, L500.4050, L100.0100, L503.0106 ####[facility] [address] [place], [address] MCHC (RBC) [Mass/Vol] 33.6 g/dL Normal 32-36 [facility] Comment on above: Performed By: #### L 500.4100, L501.9985, L501.9520, L506.1001, L500.4050, L100.0100, L503.0106 ####[facility] [address] [place], [address] MCV (RBC) [Entitic vol] 90.7 fL Normal 81-99 [facility] Comment on above: Performed By: #### L 500.4100, L501.9985, L501.9520, L506.1001, L500.4050, L100.0100, L503.0106 ####[facility] [address] [place], [address] Monocytes/100 WBC (Bld) 7.8 % Normal 0-10 [facility] Comment on above: Performed By: #### L 500.4100, L501.9985, L501.9520, L506.1001, L500.4050, L100.0100, L503.0106 ####[facility] [address] [place], [address] Neutrophils/100 WBC (Bld) 62.0 % Normal 47-70 [facility] Comment on above: Performed By: #### L 500.4100, L501.9985, L501.9520, L506.1001, L500.4050, L100.0100, L503.0106 ####[facility] [address] [place], [address] Nucleated RBC (Bld) [#/Vol] 0 10*3/uL Normal 0-5 [facility] Comment on above: Performed By: #### L 500.4100, L501.9985, L501.9520, L506.1001, L500.4050, L100.0100, L503.0106 ####[facility] [address] [place], [address] Platelet mean volume (Bld) [Entitic vol] 10.4 fL Normal 6.2-12.0 [facility] Comment on above: Performed By: #### L 500.4100, L501.9985, L501.9520, L506.1001, L500.4050, L100.0100, L503.0106 ####[facility] [address] [place], [address] Platelets (Bld) [#/Vol] 282 10*3/uL Normal 150-450 [facility] Comment on above: Performed By: #### L 500.4100, L501.9985, L501.9520, L506.1001, L500.4050, L100.0100, L503.0106 ####[facility] [address] [place], [address] RBC (Bld) [#/Vol] 3.97 10*6/uL Low 4.2-5.4 [facility] Comment on above: Performed By: #### L 500.4100, L501.9985, L501.9520, L506.1001, L500.4050, L100.0100, L503.0106 ####[facility] [address] [place], [place], [id number] RDW SD 43.9 fl Normal 35.1-43.9 [facility] Comment on above: Performed By: #### L 500.4100, L501.9985, L501.9520, L506.1001, L500.4050, L100.0100, L503.0106 ####[facility] [address] [place], [address] WBC (Bld) [#/Vol] 6.9 10*3/uL Normal 4.4-11.0 [facility] Comment on above: Performed By: #### L 500.4100, L501.9985, L501.9520, L506.1001, L500.4050, L100.0100, L503.0106 ####[facility] [address] [place], [place], [id number] Calculated very low density lipoprotein (VLDL) cholesterol measurementOrdered By: Ledy Beam on 07-02-2024 Calculated very low density lipoprotein (VLDL) cholesterol measurement 24 mg/dL 5-40 [facility] Carbon dioxide, total [Moles /volume] in Central venous bloodOrdered By: Aaronn Beam on 07-02-2024 CO2 [Moles/Vol] 24.2 mmol/L 21.0-32.0 [facility] Chloride assayOrdered By: Chai Foley on 07-02-2024 Chloride [Moles/Vol] 104 mmol/L 98-108 [facility] Comprehensive Metabolic Prof ilon 07-02-2024 Albumin [Mass/Vol] 4.3 g/dL Normal 3.5-5.0 [facility] Comment on above: Performed By: #### L 500.4100, L501.9985, L501.9520, L506.1001, L500.4050, L100.0100, L503.0106 ####[facility] [address] [place], [address] Albumin/Globulin [Mass ratio] 1.6 {ratio} Normal 0.9-2.4 [facility] Comment on above: Performed By: #### L 500.4100, L501.9985, L501.9520, L506.1001, L500.4050, L100.0100, L503.0106 ####[facility] [address] [place], [address] ALK PHOS 46 U/L Normal 35-104 [facility] Comment on above: Performed By: #### L 500.4100, L501.9985, L501.9520, L506.1001, L500.4050, L100.0100, L503.0106 ####[facility] [address] [place], [address] ALT [Catalytic activity/Vol] 56 U/L High <=34 [facility] Comment on above: Performed By: #### L 500.4100, L501.9985, L501.9520, L506.1001, L500.4050, L100.0100, L503.0106 ####[facility] [address] [place], [address] AST [Catalytic activity/Vol] 37 U/L High <=31 [facility] Comment on above: Result Comment: Hemo lysis present, Results??could be affected. ?? Performed By: #### L 500.4100, L501.9985, L501.9520, L506.1001, L500.4050, L100.0100, L503.0106 ####[facility] [address] [place], [address] Bilirubin [Mass/Vol] 0.43 mg/dL Normal 0.00-1.30 [facility] Comment on above: Performed By: #### L 500.4100, L501.9985, L501.9520, L506.1001, L500.4050, L100.0100, L503.0106 ####[facility] [address] [place], [address] BUN/CRE 14.2 RATIO Normal 10-20 [facility] Comment on above: Performed By: #### L 500.4100, L501.9985, L501.9520, L506.1001, L500.4050, L100.0100, L503.0106 ####[facility] [address] [place], [address] Calcium [Mass/Vol] 9.6 mg/dL Normal 7.6-11.0 [facility] Comment on above: Performed By: #### L 500.4100, L501.9985, L501.9520, L506.1001, L500.4050, L100.0100, L503.0106 ####[facility] [address] [place], [address] Chloride [Moles/Vol] 104 mmol/L Normal 98-108 [facility] Comment on above: Performed By: #### L 500.4100, L501.9985, L501.9520, L506.1001, L500.4050, L100.0100, L503.0106 ####[facility] [address] [place], [address] CO2 [Moles/Vol] 24.2 mmol/L Normal 21.0-32.0 [facility] Comment on above: Performed By: #### L 500.4100, L501.9985, L501.9520, L506.1001, L500.4050, L100.0100, L503.0106 ####[facility] [address] [place], [place], [phone] Creatinine [Mass/Vol] 0.96 mg/dL Normal 0.70-1.20 [facility] Comment on above: Performed By: #### L 500.4100, L501.9985, L501.9520, L506.1001, L500.4050, L100.0100, L503.0106 ####[facility] [address] [place], [place], [phone]([phone] GAP 10 Normal 5-15 [facility] Comment on above: Performed By: #### L 500.4100, L501.9985, L501.9520, L506.1001, L500.4050, L100.0100, L503.0106 ####[facility] [address] [place], [address](522) GFR/1.73 sq M.predicted among non-blacks MDRD (S/P/Bld) [Vol rate/Area] 77 mL/min/{1.73_m2} Normal >60 [facility] Comment on above: Result Comment: mL/m in/1.73m2 CKD-EPI Creatinine Equation (2020) Performed By: #### L 500.4100, L501.9985, L501.9520, L506.1001, L500.4050, L100.0100, L503.0106 ####[facility] [address] [place], [place], [phone](399) Globulin (S) [Mass/Vol] 2.7 g/dL Normal 2.2-4.2 [facility] Comment on above: Performed By: #### L 500.4100, L501.9985, L501.9520, L506.1001, L500.4050, L100.0100, L503.0106 ####[facility] [address] [place], [address] Glucose [Mass/Vol] 87 mg/dL Normal 70-99 [facility] Comment on above: Performed By: #### L 500.4100, L501.9985, L501.9520, L506.1001, L500.4050, L100.0100, L503.0106 ####[facility] [address] [place], [address] Potassium [Moles/Vol] 4.3 mmol/L Normal 3.3-5.1 [facility] Comment on above: Result Comment: Hemo lysis present, Results??could be affected. ?? Performed By: #### L 500.4100, L501.9985, L501.9520, L506.1001, L500.4050, L100.0100, L503.0106 ####[facility] [address] [place], [address] Sodium [Moles/Vol] 138 mmol/L Normal 133-145 [facility] Comment on above: Performed By: #### L 500.4100, L501.9985, L501.9520, L506.1001, L500.4050, L100.0100, L503.0106 ####[facility] [address] [place], [address] T PROT 6.9 g/dL Normal 5.9-8.4 [facility] Comment on above: Performed By: #### L 500.4100, L501.9985, L501.9520, L506.1001, L500.4050, L100.0100, L503.0106 ####[facility] [address] [place], [address] Urea nitrogen [Mass/Vol] 14 mg/dL Normal 4-19 [facility] Comment on above: Performed By: #### L 500.4100, L501.9985, L501.9520, L506.1001, L500.4050, L100.0100, L503.0106 ####[facility] [address] [place], [address] Eosinophil percentageOrdered By: Shalalun Beam on 07-02-2024 Eosinophils/100 WBC (Bld) 2.2 % 0-5 [facility] Erythrocyte distribution wid th ratioOrdered By: [facility] on 07-02-2024 Erythrocyte distribution width (RBC) [Ratio] 13.2 % 11.6-14.6 [facility] Erythrocyte distribution wid th standard deviationOrdered By: [facility] Be[facility] on 07-02-2024 Erythrocyte distribution width (RBC) [Ratio] 43.9 fl 35.1-43.9 [facility] Glomerular filtration rate ( GFR) estimation/1.73 sq m using serum, plasma, or whole bOrdered By: [facility] Hospitalrupinder [employer] [facility] on 07-02-2024 GFR/1.73 sq M.predicted among non-blacks MDRD (S/P/Bld) [Vol rate/Area] 77 mL/min/{1.73_m2} >60 [facility] Comment on above: mL/min/1.73m2 CKD-EP I Creatinine Equation (2020) Hematocrit Auto (Bld) [Volum e fraction]Ordered By: Shalarupinder Foley on 07-02-2024 Hematocrit (Bld) [Volume fraction] 36.0 % Low 37-47 [facility] Hemoglobin A1con 07-02-2024 HbA1c (Bld) [Mass fraction] 5.4 % Normal <=5.6 [facility] Comment on above: Result Comment: Norm al < 5.7 % Prediabetic 5.7 - 6.4 % Diabetic >or= 6.5 % Please note range changes. Performed By: #### L 500.4100, L501.9985, L501.9520, L506.1001, L500.4050, L100.0100, L503.0106 ####[facility] [address] [place], [place], [id number] Hemoglobin A1c percentageOrd ered By: Ledy Foley on 07-02-2024 HbA1c (Bld) [Mass fraction] 5.4 % <5.7 [facility] Comment on above: Normal < 5.7 % Predi abetic 5.7 - 6.4 % Diabetic >or= 6.5 % Please note range changes. Hemoglobin measurementOrdere d By: Ledy Foley on 07-02-2024 Hemoglobin (Bld) [Mass/Vol] 12.1 g/dL 12.0-15.0 [facility] Immature granulocytes/100 WB C Auto (Bld)Ordered By: rich Foley on 07-02-2024 Immature granulocytes/100 WBC (Bld) 0.300 % 0.0-0.9 [facility] Comment on above: IG% - Immature Granu locytes (promyelocytes, myelocytes and metamyelocytes) > 1% indicates that a LEFT SHIFT is Present. LDL calc ser/plasOrdered By: Ledy Foley on 07-02-2024 Cholesterol in LDL [Mass/Vol] 102 mg/dL [facility] Comment on above: Twbxtcrnek=072-351 m g/dL & Higher Adev=319 mg/dL or greater Laboratory - Chemistry and C hemistry - challengeOrdered By: Ledy Foley on 07-02-2024 AST [Catalytic activity/Vol] 37 U/L High <32 [facility] Comment on above: Hemolysis present, R esults could be affected. Lipid Profileon 07-02-2024 CHOL:HDL 3.16 Normal [facility] Comment on above: Performed By: #### L 500.4100, L501.9985, L501.9520, L506.1001, L500.4050, L100.0100, L503.0106 ####[facility] [address] [place], [place], [id number] Cholesterol [Mass/Vol] 184 mg/dL Normal <=200 [facility] Comment on above: Result Comment: Chol esterol level, Desirable <200 mg/dL Borderline high cholesterol 200-239 mg/dL High cholesterol >=240 mg/dL Recommendations of the NCEP Adult Treatment Panel for the following risk-cutoff thresholds for the [place] population. Performed By: #### L 500.4100, L501.9985, L501.9520, L506.1001, L500.4050, L100.0100, L503.0106 ####[facility] [address] [place], [address] Cholesterol in HDL [Mass/Vol] 58 mg/dL Normal [facility] Comment on above: Result Comment: [place] onal Cholesterol Education Program (NCEP) guidelines: <40 mg/dL: Low HDL-cholesterol (major risk factor for CHD) >= 60 mg/dL: High HDL-cholesterol (negative risk factor for CHD) HDL-cholesterol is affected by a number of factors, e.g. smoking, exercise, hormones, sex and age. Performed By: #### L 500.4100, L501.9985, L501.9520, L506.1001, L500.4050, L100.0100, L503.0106 ####[facility] [address] [place], [address] Cholesterol in LDL [Mass/Vol] 102 mg/dL Normal [facility] Comment on above: Result Comment: Bord hfwbgs=461-427 mg/dL Higher Pgsw=821 mg/dL or greater Performed By: #### L 500.4100, L501.9985, L501.9520, L506.1001, L500.4050, L100.0100, L503.0106 ####[facility] [address] [place], [address] Cholesterol in VLDL [Mass/Vol] 24 mg/dL Normal 5-40 [facility] Comment on above: Performed By: #### L 500.4100, L501.9985, L501.9520, L506.1001, L500.4050, L100.0100, L503.0106 ####[facility] [address] [place], [address] Triglyceride [Mass/Vol] 121 mg/dL Normal [facility] Comment on above: Result Comment: The drugs N-Acetylcysteine and Metamizole may falsely depress this assay. Normal range: <150 mg/dL Borderline High: 150-199 mg/dL High: 200-499 mg/dL Very High: >500 mg/dL Performed By: #### L 500.4100, L501.9985, L501.9520, L506.1001, L500.4050, L100.0100, L503.0106 ####[facility] [address] [place], [place], [address] MCV (mean corpuscular volume ) determinationOrdered By: Shalalun Beam on 07-02-2024 MCV (RBC) [Entitic vol] 90.7 fL 81-99 [facility] Mean corpuscular hemoglobin (MCH) determinationOrdered By: Zebulun Beam on 07-02-2024 MCH (RBC) [Entitic mass] 30.5 pg 27.0-32.0 [facility] Mean corpuscular hemoglobin concentration (MCHC) determinationOrdered By: Zebulun Beam on 07-02-2024 MCHC (RBC) [Mass/Vol] 33.6 g/dL 32-36 [facility] Mean platelet volume determi nationOrdered By: Zebulun Beam on 07-02-2024 Platelet mean volume (Bld) [Entitic vol] 10.4 fL 6.2-12.0 [facility] Monocyte percentageOrdered B y: Zebulun Beam on 07-02-2024 Monocytes/100 WBC (Bld) 7.8 % 0-10 [facility] Neutrophil percentageOrdered By: Zebulun Beam on 07-02-2024 Neutrophils/100 WBC (Bld) 62.0 % 47-70 [facility] Nucleated red blood cell per centageOrdered By: Zebulun Beam on 07-02-2024 Nucleated RBC/100 WBC (Bld) [Ratio] 0 % 0-5 [facility] Platelet countOrdered By: Chai fallun Og on 07-02-2024 Platelets (Bld) [#/Vol] 282 10*3/uL 150-450 [facility] Potassium measurement (mass/ volume)Ordered By: Ledy Foley on 07-02-2024 Potassium (Unsp spec) [Mass/Vol] 4.3 mmol/L 3.3-5.1 [facility] Comment on above: Hemolysis present, R esults could be affected. RBC Auto (Bld) [#/Vol]Ordere d By: Ledy Foley on 07-02-2024 RBC (Bld) [#/Vol] 3.97 10*6/uL Low 4.2-5.4 [facility] Screening total cholesterol/ high density lipoprotein (HDL) cholesterol ratioOrdered By: Ledy Foley on 07-02-2024 Cholesterol.total/Jennifer sterol in HDL [Mass ratio] 3.16 {ratio} [facility] Serum creatinine measurement (mass/volume)Ordered By: Ledy Foley on 07-02-2024 Creatinine [Mass/Vol] 0.96 mg/dL 0.70-1.20 [facility] Serum globulin measurementOr dered By: Ledy Foley on 07-02-2024 Globulin (S) [Mass/Vol] 2.7 g/dL 2.2-4.2 [facility] Serum glucose measurement (m ass/volume)Ordered By: Ledy Foley on 07-02-2024 Glucose [Mass/Vol] 87 mg/dL 70-99 [facility] Serum or plasma alanine zimmer otransferase (ALT) measurementOrdered By: Ledy Foley on 07-02-2024 ALT [Catalytic activity/Vol] 56 U/L High <35 [facility] Serum or plasma albumin milton urement (mass/volume)Ordered By: Shalarupinder Foley on 07-02-2024 Albumin [Mass/Vol] 4.3 g/dL 3.5-5.0 [facility] Serum or plasma albumin/glob ulin mass ratioOrdered By: cmrupinder Foley on 07-02-2024 Albumin/Globulin [Mass ratio] 1.6 {ratio} 0.9-2.4 [facility] Serum or plasma alkaline musa sphatase measurementOrdered By: Ledy Foley on 05-16-2025 ALP [Catalytic activity/Vol] 46 U/L 35-104 [facility] Serum or plasma calcium milton urement (mass/volume)Ordered By: Ledy Foley on 07-02-2024 Calcium [Mass/Vol] 9.6 mg/dL 7.6-11.0 [facility] Serum or plasma cholesterol in HDL measurement (mass/volume)Ordered By: Ledy Foley on 07-02-2024 Cholesterol in HDL [Mass/Vol] 58 mg/dL >40 [facility] Comment on above: National Cholesterol Education Program (NCEP) guidelines:<40 mg/dL: Low HDL-cholesterol (major risk factor for CHD)>= 60 mg/dL: High HDL-cholesterol (negative risk factor for CHD)HDL-cholesterol is affected by a number of factors, e.g. smoking, exercise, hormones, sex and age. Serum or plasma cholesterol measurement (mass/volume)Ordered By: Ledy Foley on 07-02-2024 Cholesterol [Mass/Vol] 184 mg/dL <201 [facility] Comment on above: Cholesterol level, D esirable <200 mg/dLBorderline high cholesterol 200-239 mg/dLHigh cholesterol >=240 mg/dLRecommendations of the NCEP Adult Treatment Panel for the following risk-cutoff thresholds for the [place] population. Serum or plasma urea nitroge n measurement (mass/volume)Ordered By: Ledy Foley on 07-02-2024 Urea nitrogen [Mass/Vol] 14 mg/dL 4-19 [facility] Sodium levelOrdered By: Shala Foley on 07-02-2024 Sodium [Moles/Vol] 138 mmol/L 133-145 [facility] TSH DL <= 0.005 mIU/L QnOrde red By: Ledy Foley on 07-02-2024 TSH Qn 1.640 uIU/mL 0.300-4.20 0 [facility] Thyroid Stim Hormone (TSH)on 07-02-2024 TSH 1.640 uIU/mL Normal 0.300-4.20 0 [facility] Comment on above: Performed By: #### L 500.4100, L501.9985, L501.9520, L506.1001, L500.4050, L100.0100, L503.0106 ####[facility] [address] [place], [place], [id number] Total proteinOrdered By: Art Foley on 07-02-2024 Protein [Mass/Vol] 6.9 g/dL 5.9-8.4 [facility] Triglycerides measurementOrd ered By: Ledy Foley on 07-02-2024 Triglyceride [Mass/Vol] 121 mg/dL <199 [facility] Comment on above: The drugs N-Acetylcy steine and Metamizole may falsely depress this assay. Normal range: <150 mg/dLBorderline High: 150-199 mg/dLHigh: 200-499 mg/dLVery High: >500 mg/dL Vitamin B12on 07-02-2024 Cobalamin (Vitamin B12) [Mass/Vol] 794 pg/mL Normal 180-914 [facility] Comment on above: Performed By: #### L 500.4100, L501.9985, L501.9520, L506.1001, L500.4050, L100.0100, L503.0106 ####[facility] [address] [place], [place], [id number] Vitamin B12 ser/plasOrdered By: Ledy Foley on 07-02-2024 Cobalamin (Vitamin B12) [Mass/Vol] 794 pg/mL 180-914 [facility] Vitamin D,25 Hydroxyon 07-02 Vitamin D 25-OH 36.6 ng/mL Normal 30-100 [facility] Comment on above: Result Comment: Iza min D Status Deficiency: <20 ng/mL (50nmol/L) Insufficiency: 20-30 ng/mL (50-75 nmol/L) Sufficiency: 30-100 ng/mL (75-250 nmol/L) Toxicity: >100 ng/mL (>250 nmol/L) Performed By: #### L 500.4100, L501.9985, L501.9520, L506.1001, L500.4050, L100.0100, L503.0106 ####[facility] [id number] [place], [place], [address] White blood cell (WBC) count Ordered By: Ledy Foley on 07-02-2024 WBC (Bld) [#/Vol] 6.9 10*3/uL 4.4-11.0 [facility] Lower Ext Joint Only (Routin e)on 06-18-2024 Lower Ext Joint Only (Routine) [facility] Imaging Services [address] [place] [address] Lower Ext Joint Only (Routine) MR#: [id number] Acct: [id number] Name: ANA MARIA JOSEPH ANN Rep #: [id number] : 1985 F 38 From: Aleks Mendenhall DO PCP: HANG Jameson Status: REG CLI Study: Lower Ext Joint Only (Routine) Date of Exam: 0 06/18/24 Exam# [id number] Ordering Dr: Carlos Martins MD EXAM: MRI left hip without contrast CLINICAL HISTORY: Left leg burning and numbness. Pain. COMPARISON: None. TECHNIQUE: Unenhanced MRI left hip was performed. Large mqikz-jq-gvft coronal T1 and STIR images of the entire pelvis also obtained. FINDINGS: Marrow edema is noted surrounding the pubic symphysis. There is ybdtl-vzljjzu-jjtd-left irregularity of the pubic tubercles, consistent with degenerative change. No diastasis. No adductor tendon tear is identified. Mild symmetric edema of the sacral wings along the lower SI joint margins, without fracture line. Appearance most consistent with minor degenerative change. No SI joint effusions, likely physiologic in or ankylosis. Marrow signal is otherwise normal. There is no left hip fracture, osteonecrosis, or marrow replacement process. No hip joint effusions. No displaced labral tear. Bilateral hip joint cartilage is grossly intact bilaterally. No bursitis. Mild tendinosis of the left gluteus minimus, without tear. Gluteus medius is unremarkable. The iliotibial tracts are normal bilaterally. In the pelvis, the urinary bladder is decompressed. 2.7 cm left ovarian cyst, likely physiologic in this age patient. Hysterectomy. MRI/Lower Ext Joint Only (Routine) IMPRESSION: 1. Mild tendinosis of the left gluteus minimus without tear or bursitis. Left hip is otherwise unremarkable with no osteoarthritic change, effusion, or occult fracture. No marrow edema of the left hip. No labral pathology identified, allowing for lack of intra-articular contrast. 2. Minor symmetric degenerative change along the lower SI joints bilaterally. More advanced degenerative change of the pubic symphysis Reading Location: [facility] CC: METAL FURNACE OPERATORChrissy Batista; Dr. Carlos Martins MD Inserting Press Operator: Signed Normal [facility] Magnetic resonance imaging r eportOrdered By: Aleks Mendenhall on 06-18-2024 Study report [facility] Imaging Services [address] [place], [place] [address] Lower Ext Joint Only (Routine) MR#: [id number] Acct: [id number] Name: ANA MARIA JOSEPH ANN Rep #: [id number] : 1985 F 38 From: Aleks Mendenhall DO PCP: HANG Jameson Status: REG CLI Study:Lower Ext Joint Only (Routine) Date of Exam: 06/18/24 Exam# [id number] Ordering Dr: Carlos Martins MD EXAM: MRI left hip without contrast CLINICAL HISTORY: Left leg burning and numbness. Pain. COMPARISON: None. TECHNIQUE: Unenhanced MRI left hip was performed. Large kenja-ym-huuc coronal T1 and STIR images of the entire pelvis also obtained. FINDINGS: Marrow edema is noted surrounding the pubic symphysis. There is swvpg-cjdhqdj-vvtf-left irregularity of the pubic tubercles, consistent with degenerative change. No diastasis. No adductor tendon tear is identified. Mild symmetric edema of the sacral wings along the lower SI joint margins, without fracture line. Appearance most consistent with minor degenerative change. No SI joint effusions, likely physiologic in or ankylosis. Marrow signal is otherwisenormal. There is no left hip fracture, osteonecrosis, or marrow replacement process. No hip joint effusions. No displaced labral tear. Bilateral hip joint cartilage is grossly intact bilaterally. No bursitis. Mild tendinosis of the left gluteus minimus, without tear. Gluteus medius is unremarkable. The iliotibial tracts are normal bilaterally. In the pelvis, the urinary bladder is decompressed. 2.7 cm left ovarian cyst, likely physiologic in this age patient. Hysterectomy. MRI/Lower Ext Joint Only (Routine) IMPRESSION: 1. Mild tendinosis of the left gluteus minimus without tear or bursitis. Left hip is otherwise unremarkable with no osteoarthritic change, effusion, or occult fracture. No marrow edema of the left hip. No labral pathology identified, allowing for lack of intra-articular contrast. 2. Minor symmetric degenerative change along the lower SI joints bilaterally. More advanced degenerative change of the pubic symphysis Reading Location: [facility] CC: HANG Batista; Dr. Carlos Martins MD ~ Inserting Press Operator: Signed [facility] Supervisor [place] Office Visit Reporton 06-14-2024 Supervisor [place] Office Visit Report [facility] [address], [address] [place] [address] OFFICE VISIT Date of Service: 06/14/24 MR#: [id number] Acct: [id number] Name: ANA MARIA JOSEPH ANN Rep #: [id number] : 1985 Provider: Dr. Ana Maria Gaytan DO Age/Sex: 38/F [place] [facility] [place]: Signed with Addenda ADDENDUM by Dr. Ana Maria Walker DO on 06/14/24 at 1352 Assessment and Plan Plan Details Goals Barriers: Goals Decrease pain Decrease spasm Improve workability Addendum error above. uterus is surgically absent. not having menses 06/14/24 1352 Date Ana Maria Walker DO cc: * Signed Intake Vital Signs 04/09/24 09:43 06/14/24 13:15 06/14/24 13:15 Height 5 ft 5 in 5 ft 5 in 5 ft 5 in Weight: 232 lb BMI 38.6 BP 118/83 H Intake Visit Reasons: Annual ([employer]) [employer] Required: No Is patient in pain?: No Allergies Penicillins Adverse Reaction (Severe, Verified 06/14/24 13:15) hives cefaclor (From Ceclor) Adverse Reaction (Intermediate, Verified 06/14/24 13:15) Hives doxycycline Adverse Reaction (Intermediate, Verified 06/14/24 13:15) Diarrhea Medications ???Medication ???Instructions ???Recorded ???Confirmed ???Type cetirizine 10 mg capsule (Zyrtec) 10 mg PO DAILY 02/15/20 06/14/24 History ibuprofen 800 mg tablet 800 mg PO Q8H PRN pain 7 days #30 03/13/21 06/14/24 Rx tabs dicyclomine 20 mg tablet 20 mg PO TID PRN abdominal pain 06/14/24 Rx #180 tabs pantoprazole 40 mg tablet,delayed 40 mg PO DAILY reflux #90 tabs 06/14/24 Rx release (Protonix) buspirone 30 mg tablet 30 mg PO BID 90 days #180 tabs 01/0906/14/24 Rx cariprazine 1.5 mg capsule 1.5 mg PO DAILY 11/25/22 06/14/24 History (Vraylar) cyanocobalamin (vitamin B-12) 100 100 mcg PO DAILY 12/06/22 5 History mcg tablet (Vitamin B-12) propranolol 20 mg tablet 20 mg PO DAILY BP 06/05/23 5 History eletriptan 20 mg tablet (Relpax) See Rx Instructions .Route 4 06/14/24 Rx .COMPLEX #9 tabs erenumab-aooe 140 mg/mL 140 mg subcut QMONTH migraines #1 09/29/23 06/14/24 Rx subcutaneous auto-injector mL (Aimovig Autoinjector) ondansetron HCl 4 mg tablet 4 mg PO TID PRN nausea and 4 06/14/24 Rx vomiting #90 tabs tizanidine 4 mg tablet (Zanaflex) 8 mg (2 x 4 mg) PO QHS #60 tabs 0 09/29/23 06/14/24 Rx ubrogepant 100 mg tablet 100 mg PO .COMPLEX migraine 06/14/24 Rx headache #16 tabs empty vial 05/11/24 06/14/24 History gabapentin 300 mg capsule 300 mg PO BID 06/14/24 06/14/24 Hi story meloxicam 15 mg tablet 15 mg PO QDAY 06/14/24 06/14/24 Hi story semaglutide (weight loss) 0.5 0.5 mg subcut QWEEK 06/14/2406/14 History mg/0.5 mL subcutaneous pen injector Post menopausal: No Patient : No : No PFSH Medical History Left hip pain Cardiology follow-up encounter Acute conjunctivitis, left eye History of Holter monitoring Generalized anxiety disorder Vitamin deficiency Bilateral carpal tunnel syndrome Numbness and tingling in both hands Positive Tinel's sign Right ear impacted cerumen History of irregular heartbeat History of echocardiogram Chest pain History of stress test Bipolar 1 disorder Essential hypertension Abnormal EKG Bradycardia Wears glasses Wears dentures Wears partial dentures Alcohol use Migraine headache Hx of vertigo Gastric reflux Former smoker Hypertension Tinnitus Nonscarring hair loss Screening for thyroid disorder Tinnitus, right GI bleed vision problem with headache Neuropathy IBS (irritable bowel syndrome) H/O emotional problems History of eating disorder Chronic neck and back pain Chronic diarrhea H/O hemorrhoids Surgical History History of carpal tunnel surgery of left wrist History of carpal tunnel surgery of right wrist History of salpingectomy History of right salpingo-oophorectomy History of hysterectomy Hx of colonoscopy Hx of esophagogastroduodenoscopy history of upper and lower scope History of cholecystectomy H/O dilation and curettage History of tonsillectomy Family History Mother Hypertension Arthritis Anemia Father Diabetes Anesthesia complication Brother Brain cancer Anxiety Sister Asthma Grandmother CVA (cerebral vascular accident) Daughter Anxiety Grandfather COPD (chronic obstructive pulmonary disease) CVA (cerebral vascular accident) Other Seizures Social History (Updated 06/14/24 @ 13:29 by Dhara Yoon) household members: spouse and children (more content not included)... Normal [facility] NCS and/or EMG Patienton NCS and/or EMG Patient [facility] Pulmonary Services/Neurology [address] [place] [address] MR#: [id number] Acct: [id number] Name: ANA MARIA JOSEPH Rep #: [id number] : 1985 38 From: Ramona Martin MD Referring Dr: Ashkan Ortiz MD Status: REG CLI Location: PSN Date: 06/08/24 Sex: F C NCS and/or EMG Patient Report Ordering Doctor: Ashkan Ortiz DATE OF SERVICE: 06/08/24 Clinical Summary: 38 year old female patient with symptoms of numbness in the left lateral thigh region. She denies having similar symptoms in the right lower extremity. Nerve Conduction Studies Summary: Nerve conduction studies were performed primarily in the left lower extremity. The left lateral femoral cutaneous SNAP was absent. For comparison purposes, the right lateral femoral cutaneous SNAP was performed and also found to be absent. All other performed nerve conductions were normal. Needle Examination Summary: Needle examination of select muscles of the left lower extremity was normal. Impression: As per guidelines, unilateral meralgia paresthetica is confirmed electrodiagnostically by an absent and/or low amplitude lateral femoral cutaneous response on the symptomatic side in comparison to a normal response on the asymptomatic side as this particular nerve conduction is technically difficult to adequately obtain and visualize in the setting of increased body habitus/BMI. However, this patient's lateral femoral cutaneous sensory response was absent bilaterally, which can be seen in the setting of bilateral meralgia paresthetica or in the setting of technical limitations/difficulties of adequately stimulating the nerve altogether. As such, this electrodiagnostic study is not definitively diagnostic of a left or right lateral femoral cutaneous mononeuropathy. There is also no electrodiagnostic evidence of a left lumbosacral radiculopathy. Multi Select Codes Neurology Neurology Interp Codes: 35827-01 Musc test done w/n test comp (interp) (1) and 50429-82 Nrv cndj tst 5-6 studies (interp) 06/08/24 1127 Date Ramona Martin MD CC: METAL FURNACE OPERATOR-C Angus Batista; Dr. Ramona Martin MD; Dr. Ashkan Ortiz MD Date Dictated: 06/08/24949 Date Transcribed: 06/08/24949 Inserting Press Operator: Signed Normal [facility] HIP, UNI W/ Pelvis 2-3 Views on 05-11-2024 HIP, UNI W/ Pelvis 2-3 Views [facility] Imaging Services [address] [place], [place] [address] HIP, UNI W/ Pelvis 2-3 Views MR#: [id number] Acct: [id number] Name: ANA MARIA JOSEPH ANN Rep #: [id number] : 1985 F 38 From: Leo Mccoy MD PCP: HANG Jameson Status: REG CLI Study: HIP, UNI W/ Pelvis 2-3 Views Date of Exam: Exam# [id number] Ordering Dr: Ashkan Ortiz MD PROCEDURE: HIP, UNI W/ PELVIS 2-3 VIEWS 05/11/2024 REASON FOR EXAM: PAIN TECHNIQUE: 2 views of the left hip. AP Pelvis. 3 images COMPARISON: None available FINDINGS: No fracture or dislocation. The joint spaces appear within limits. Symmetric appearing SI joints and pubic symphysis appear within limits. Vague asymmetric sclerosis at the right pubis may be degenerative. RAD/HIP, UNI W/ Pelvis 2-3 Views IMPRESSION: Left hip appears within limits. Vague asymmetric sclerosis at the right pubis may be degenerative, nonspecific. Reading Location: [facility] CC: METAL FURNACE OPERATOR-C Angus Batista; Dr. Ashkan Ortiz MD Inserting Press Operator: Signed Normal [facility] Lumbar Spine 2 or 3 Viewson 05-11-2024 Lumbar Spine 2 or 3 Views [facility] Imaging Services [address] [place], [place] [id number] Lumbar Spine 2 or 3 Views MR#: [id number] Acct: [id number] Name: ANA MARIA JOSEPH ANN Rep #: [id number] : 1985 F 38 From: Fern Cowan PCP: HANG Jameson Status: REG CLI Study: Lumbar Spine 2 or 3 Views Date of Exam: Exam# [id number] Ordering Dr: Ashkan Ortiz MD EXAM: Two views lumbosacral spine. CLINICAL HISTORY: Thigh numbness. COMPARISON: None TECHNIQUE: Two views of the lumbosacral spine. FINDINGS: Two views of the lumbosacral spine were obtained and demonstrate 5 lumbar type vertebral bodies below the last set of paired ribs. The vertebral body heights and alignment are within normal limits. There is no spondylolisthesis or spondylolysis. Intervertebral disc spaces are well-maintained. Sacrum appears grossly unremarkable. Phleboliths are seen in the pelvis. Paravertebral soft tissues are unremarkable. RAD/Lumbar Spine 2 or 3 Views IMPRESSION: Unremarkable lumbar sacral spine. Electronically Signed By: Fern langford 05/11/2024 19:26 Reading Location: [id number] CC: METAL FURNACE OPERATOR-C Angus Batista; Dr. Ashkan Ortiz MD Inserting Press Operator: Signed Normal [facility] Orthopedic Visit Reporton Orthopedic Visit Report [facility] [address] [place] [address] OFFICE VISIT Date of Service: 05/11/24 MR#: [id number] Acct: [id number] Name: ANA MARIA JOSEPH ANN Rep #: [id number] : 1985 Provider: Dr. Ashkan langford MD Age/Sex: 38/F [place] [facility] [place]: Signed Intake Vital Signs 04/09/24 09:43 Height 5 ft 5 in Intake Visit Reasons: LEFT LEG Chief Complaint: left leg Is patient in pain?: Yes (left leg ) Pain scale (1-10): 4 Allergies Penicillins Adverse Reaction (Severe, Verified 05/11/24 13:37) hives cefaclor (From Ceclor) Adverse Reaction (Intermediate, Verified 05/11/24 13:37) Hives doxycycline Adverse Reaction (Intermediate, Verified 05/11/24 13:37) Diarrhea Medications ???Medication ???Instructions ???Recorded ???Confirmed ???Type cetirizine 10 mg capsule (Zyrtec) 10 mg PO DAILY 02/15/20 05/11/24 History ibuprofen 800 mg tablet 800 mg PO Q8H PRN pain 7 days #30 03/13/21 05/11/24 Rx tabs dicyclomine 20 mg tablet 20 mg PO TID PRN abdominal pain 05/11/24 Rx #180 tabs pantoprazole 40 mg tablet,delayed 40 mg PO DAILY reflux #90 tabs 05/11/24 Rx release (Protonix) buspirone 30 mg tablet 30 mg PO BID 90 days #180 tabs 01/0905/11/24 Rx cariprazine 1.5 mg capsule 1.5 mg PO DAILY 11/25/22 05/11/24 History (Vraylar) cyanocobalamin (vitamin B-12) 100 100 mcg PO DAILY 12/06/22 5 History mcg tablet (Vitamin B-12) propranolol 20 mg tablet 20 mg PO DAILY BP 06/05/23 5 History eletriptan 20 mg tablet (Relpax) See Rx Instructions .Route 4 05/11/24 Rx .COMPLEX #9 tabs erenumab-aooe 140 mg/mL 140 mg subcut QMONTH migraines #1 09/29/23 05/11/24 Rx subcutaneous auto-injector mL (Aimovig Autoinjector) ondansetron HCl 4 mg tablet 4 mg PO TID PRN nausea and 4 05/11/24 Rx vomiting #90 tabs tizanidine 4 mg tablet (Zanaflex) 8 mg (2 x 4 mg) PO QHS #60 tabs 0 09/29/23 05/11/24 Rx ubrogepant 100 mg tablet 100 mg PO .COMPLEX migraine 05/11/24 Rx headache #16 tabs empty vial 05/11/24 05/11/24 History PFSH Medical History (Updated 05/11/24 @ 13:48 by Ashkan Ortiz MD) Left hip pain Cardiology follow-up encounter Acute conjunctivitis, left eye History of Holter monitoring Generalized anxiety disorder Vitamin deficiency Bilateral carpal tunnel syndrome Numbness and tingling in both hands Positive Tinel's sign Right ear impacted cerumen History of irregular heartbeat History of echocardiogram Chest pain History of stress test Bipolar 1 disorder Essential hypertension Abnormal EKG Bradycardia Wears glasses Wears dentures Wears partial dentures Alcohol use Migraine headache Hx of vertigo Gastric reflux Former smoker Hypertension Tinnitus Nonscarring hair loss Screening for thyroid disorder Tinnitus, right GI bleed vision problem with headache Neuropathy IBS (irritable bowel syndrome) H/O emotional problems History of eating disorder Chronic neck and back pain Chronic diarrhea H/O hemorrhoids Surgical History History of carpal tunnel surgery of left wrist History of carpal tunnel surgery of right wrist History of salpingectomy History of right salpingo-oophorectomy History of hysterectomy Hx of colonoscopy Hx of esophagogastroduodenoscopy history of upper and lower scope History of cholecystectomy H/O dilation and curettage History of tonsillectomy Family History Mother Hypertension Arthritis Anemia Father Diabetes Anesthesia complication Brother Brain cancer Anxiety Sister Asthma Grandmother CVA (cerebral vascular accident) Daughter Anxiety Grandfather COPD (chronic obstructive pulmonary disease) CVA (cerebral vascular accident) Other Seizures Social History household members: spouse and children number of children: 3 current occupational status: employed current occupation: [employer] history of recent travel: No sexually active: Yes Smoking Status: Former smoker alcohol intake: never substance use type: does not use caffeine: No what type of physical activity do you participate in: running frequency: 3-4 times per week seatbelt use: always do you feel safe at home: Yes additional social history: - Donald LONG LEFT LEG Details: This documentation accurately reflects the service provided and the decisions made by me, Dr. Ashkan Ortiz MD 05/11/24 3901. Part of today???s visit was documented by [ ], acting as scribe. ANA MARIA JOSEPH is a 38 year old F here today for L thigh numbness. Was in ED a month ago - DVT US negative (more content not included)... Normal [facility] PT D/C Summary (1)on 025 PT D/C Summary (1) [facility] Physical [facility] [address] [place] [address] / REHABILITATION SERVICES DISCHARGE SUMMARY MR#: [id number] Acct: [id number] Name: ANA MARIA JOSEPH Rep #: [id number] : 1985 38 From: Paula PURI Referring DrChacho: Ledy Foley Status: RE G RCR Insurance: [employer]/[facility] SELF PAY INSURANCE Discharge Summary D/C summary: It has been my pleasure to treat ANA MARIA JOSEPH referred by GEOVANNI Johnson, HANG, with the diagnosis of meralgia paresthetica L leg for a total of 6 visit(s). Discharge Date: 05/11/24 Please see the following information for a summary of their discharge status. Subjective Subjective: Pt needs to schedule an appt with Orthopedics. She is no better. She is worse when she is on her feet and especially when at work on feet for 10 hours (17,000 steps yesterday). The numbness is always there. The burning is not as bad sometimes. Nothing here in PT has really helped. She reports that heat helps and she does do heat at home. Pain L leg pain: Pain Intensity (Out of 10): 4 Overall Improvement % Improvement: 0 Objective Objective/Function: L hip flexibility is improved on the L Pt has pain with prone stretching of the L hip flexor.. Goals Goal 1:: I HEP Goal Progress: Goal Met Goal 2:: Increase hip flexor/Quad flexibility on the L. Goal Progress: Goal Met Goal 3:: Decrease freq/intensity of L anterior Quad burning with standing or walking by 50% Goal Progress: Not Progressing Plan Plan: DC PT back to no improvement in pain or numbness D/C Information Discharge Comments: no improvement d/c sentence: If there are questions or concerns regarding this patient's physical therapy, please feel free to call me at [phone]. Thank you for the referral of this patient. Sincerely, KHUSHI Dewey Balance/Gait/Functional tests Balance/Special Test Scores Lower Extremity Functional Score: 67 Improvement % Improvement: 0 05/11/24 1203 CC: HANG Villafana [facility] METAL FURNACE OPERATOR-[employer] Signed Normal [facility] Breast Limited Unilateralon 04-30-2024 Breast Limited Unilateral [facility] Imaging Services [address] [place] [address] Breast Limited Unilateral MR#: [id number] Acct: [id number] Name: ANA MARIA JOSEPH ANN Rep #: [id number] : 1985 F 38 From: Paramjit carmichael MD PCP: HANG Jameson Status: REG CLI Study: Breast Limited Unilateral Date of Exam: Exam# [id number] Ordering Dr: Alem Gross CNM PROCEDURE: BREAST LIMITED UNILATERAL REASON FOR EXAM: BREAST LUMP Palpable lump in the upper inner quadrant of the right breast. COMPARISON: Comparison is made with prior mammogram done earlier in the day. TECHNIQUE: Targeted ultrasound of the right breast was performed. FINDINGS: RIGHT: Ultrasound targeted to the upper inner quadrant of the right breast. The breast tissue appears sonographically normal. No cyst, solid mass, or suspicious shadowing. US/Breast Limited Unilateral IMPRESSION: No sonographic abnormality is seen. BI-RADS 1: NEGATIVE. RECOMMEND ANNUAL MAMMOGRAPHIC SCREENING. Reading Location: [place] [address] CC: DARIN Gross; HANG Batista Inserting Press Operator: Signed Normal [facility] Breast imaging reportOrdered By: Paramjit Kumari on 04-30-2024 Study report [facility] Imaging Services [address] [place], [place] [address] DIAG MAMM W/CAD, BILAT MR#: [id number] Acct: [id number] Name: ANA MARIA JOSEPH ANN Rep #: [id number] : 1985 F 38 From: Valeriano Kumari MD PCP: HANG Jameson Status: REG CLI Study:DIAG MAMM W/CAD, BILAT Date of Exam: 04/30/24 Exam# [id number] Ordering Dr: Aelm Gross CNM PROCEDURE: DIAG MAMM W/CAD, BILAT REASON FOR EXAM: Palpable lump in the upper anterior central aspect of the right breast. TECHNIQUE: Bilateral diagnostic digital breast tomosynthesis with 2D and 3D images. Computer aided detection. COMPARISON: Prior exam(s) dating back to February 27, 2023.. FINDINGS: The breasts are heterogeneously dense which may obscure small masses. Stable asymmetry of breast tissue were more breast tissue is seen in the upper-outer quadrant of the left breast as compared to the right side. A tissue clip marker is once again seen in the upper central portion of the left breast. BI/DIAG MAMM W/CAD, BILAT IMPRESSION: Stable examination. With the patient's history of palpable lump in the right breast, targeted sonographic correlation recommended. BI-RADS 0: INCOMPLETE - NEED ADDITIONAL IMAGING EVALUATION. Follow-up code: Ultrasound Recommended Reading Location: [facility] CC: DARIN Gross; METAL FURNACE OPERATORRaquelC Angus Batista ~ Inserting Press Operator: Signed [facility] DIAG MAMM W/CAD, BILATon DIAG MAMM W/CAD, BILAT [facility] Imaging Services [address] [place], [place] [id number] DIAG MAMM W/CAD, BILAT MR#: [id number] Acct: [id number] Name: ANA MARIA JOSEPH ANN Rep #: [id number] : 1985 F 38 From: Paramjit acrmichael MD PCP: HANG Jameson Status: [facility] CLI Study: DIAG MAMM W/CAD, BILAT Date of Exam: 04/30/24 Exam# [id number] Ordering Dr: Alem Gross CNM PROCEDURE: DIAG MAMM W/CAD, BILAT REASON FOR EXAM: Palpable lump in the upper anterior central aspect of the right breast. TECHNIQUE: Bilateral diagnostic digital breast tomosynthesis with 2D and 3D images. Computer aided detection. COMPARISON: Prior exam(s) dating back to February 27, 2023.. FINDINGS: The breasts are heterogeneously dense which may obscure small masses. Stable asymmetry of breast tissue were more breast tissue is seen in the upper-outer quadrant of the left breast as compared to the right side. A tissue clip marker is once again seen in the upper central portion of the left breast. BI/DIAG MAMM W/CAD, BILAT IMPRESSION: Stable examination. With the patient's history of palpable lump in the right breast, targeted sonographic correlation recommended. BI-RADS 0: INCOMPLETE - NEED ADDITIONAL IMAGING EVALUATION. Follow-up code: Ultrasound Recommended Reading Location: [facility] CC: DARIN Gross; HANG Batista Inserting Press Operator: Signed Normal [facility] Inital Evaluation (1) - PTon 04-09-2024 Inital Evaluation (1) - PT [facility] Physical Therapy [facility] [address] [place] [address] [address] [place] [address] / REHABILITATION SERVICES INITIAL EVALUATION MR#: [id number] Acct: [id number] Name: ANA MARIA JOSEPH Rep #: [id number] : 1985 38 From: Paula PURI Referring DrChacho: Ledy Foley Status: RE G RCR Insurance: [facility] [employer] SELF PAY INSURANCE Patient's Visit Information Visit Information Visit Information: ANA MARIAALEJO JOSEPH is a 38 year old F referred to Physical Therapy by GEOVANNI Johnson, METAL FURNACE OPERATOR-C with a diagnosis of meralgia paresthetica L leg. Date of Evaluation: 04/09/24 Physical Therapist: KHUSHI Dewey Visit Plan Frequency: 1x/Week Duration: 6 Weeks Plan: See effectiveness of hip flexor stretching 1X/ week for L hip flexor/Quad stretching, may try foam rolling if not painful, bridges, Trunk stretches, core stability and hip strength with HEP HEP: prone with strap hip flexor stretch and supine off the edge of the mat table stretching Subjective Subjective: For the last couple months intermittent numbness from L knee to groin and then started with burning. She saw Primary last week and he wants PT for 6 weeks and if that does not help to see an ortho. She got a new job that she is walking more. Her pain is worse with walking. The numbness is constant but the burning is intermitted. Sitting does not cause burning but standing and walking increases it. Doppler was negative. She is not having any back or hip pain. She can not lay on her R hip very long as the numbness gets worse. It will sometimes wake her up at night. Pain L leg pain: Pain Intensity (Out of 10): 0 Objective Objective: Gait: walks with decrease stance time on the R LE and smaller step length Pt has increase L thigh burning with heel and toe raises Trunk AROM: flexion 100%, ext 100%, SB B 100%, ROT B 75% LE MMT: R hip flex 9.3 and L 9.6 R knee ext 19.1 and L 20.4 R knee flex 11.7 and L 9 Pt had normal stretch feeling in B piriformis muscles and hamstring Pt had increase burning with knee to chest on the L and with hip flexor/Quad stretching on the L (both off the edge of the mat table and prone with strap) Balance/Special Test Scores Lower Extremity Functional Score: 70 Goals Goal 1:: I HEP Goal Time Frame: 6-8 Weeks Goal 2:: Increase hip flexor/Quad flexibility on the L. Goal Time Frame: 6-8 Weeks Goal 3:: Decrease freq/intensity of L anterior Quad burning with standing or walking by 50% Goal Time Frame: 6-8 Weeks Rehabilitation Potential Rehabilitation Potential: Good Anticipated Interventions Patient/Client Instruction: Educate patient on: Condition and Plan of Care For the Purpose of:: To decrease pain, To increase ROM, To improve nutrient delivery to tissue, To improve muscle performance and motor function, To improve ability to perform ADL's, To increase tolerance to activity/condition/position , To improve performance and independence with ADL's, To improve gait and locomotor functions, To improve health of tissue, To decrease soft tissue restriction and To increase flexibility/ROM Therapeutic Exercise to Include: Strength training, Postural training, Flexibilty training, Gait and locomotor training, Neuromotor development, Passive ROM, Active ROM and Dynamic Lumbar Stabilization For the Purpose of:: To decrease pain, To increase ROM, To improve nutrient delivery to tissue, To improve muscle performance and motor function, To improve ability to perform ADL's, To increase tolerance to activity/condition/position , To improve performance and independence with ADL's, To improve gait and locomotor functions, To improve health of tissue, To decrease soft tissue restriction and To increase flexibility/ROM Functional Training to Include: Gait training For the Purpose of:: To improve gait and locomotor functions Manual Therapy Techniques to Include: Passive ROM and Soft tissue mobilization For the Purpose of:: To decrease pain, To increase ROM, To improve nutrient delivery to tissue, To improve muscle performance and motor function, To improve ability to perform ADL's, To increase tolerance to activity/condition/position , To improve performance and independence with ADL's, To improve gait and locomotor functions, To improve health of tissue, To decrease soft tissue restriction and To increase flexibility/ROM Text: Thank you for the opportunity to evaluate your patient. For Medicare and Medicare HMO plans, please review the plan of care and approve it. It will need to be FAXED BACK to us at [phone] for Medicare purposes. For Medicare only, by signing this I certify the plan of care. Please let me know if there are questions or concerns regarding this plan of care. Physician Signature: Date: (more content not included)... Normal [facility] Supervisor [place] Office Visit Reporton 04-09-2024 Supervisor [place] Office Visit Report [facility] [address], [address] [place] [address] OFFICE VISIT Date of Service: 04/09/24 MR#: [id number] Acct: [id number] Name: ANA MARIA JOSEPH Rep #: [id number] : 1985 Provider: DARIN [place] ams Age/Sex: 38/F [place] [facility] [place]: Signed Intake Vital Signs 11/26/23 12:04 03/29/24 19:00 04/09/24 09:38 04/09/24 09:43 Height 5 ft 5 in 5 ft 5 in 5 ft 5 in 5 ft 5 in Weight: 257 lb BMI 42.7 BP 133/85 H Intake Visit Reasons: Lumps in breasts Metal Precision Machine Assembler Required: No Is patient in pain?: No Allergies Penicillins Adverse Reaction (Severe, Verified 04/09/24 09:37) hives cefaclor (From Ceclor) Adverse Reaction (Intermediate, Verified 04/09/24 09:37) Hives doxycycline Adverse Reaction (Intermediate, Verified 04/09/24 09:37) Diarrhea Medications ???Medication ???Instructions ???Recorded ???Confirmed ???Type cetirizine 10 mg capsule (Zyrtec) 10 mg PO DAILY 02/15/20 04/09/24 History ibuprofen 800 mg tablet 800 mg PO Q8H PRN pain 7 days #30 03/13/21 04/09/24 Rx tabs dicyclomine 20 mg tablet 20 mg PO TID PRN abdominal pain 04/09/24 Rx #180 tabs pantoprazole 40 mg tablet,delayed 40 mg PO DAILY reflux #90 tabs 04/09/24 Rx release (Protonix) buspirone 30 mg tablet 30 mg PO BID 90 days #180 tabs 01/0904/09/24 Rx cariprazine 1.5 mg capsule 1.5 mg PO DAILY 11/25/22 04/09/24 History (Vraylar) cyanocobalamin (vitamin B-12) 100 100 mcg PO DAILY 12/06/22 5 History mcg tablet (Vitamin B-12) propranolol 20 mg tablet 20 mg PO DAILY BP 06/05/23 5 History eletriptan 20 mg tablet (Relpax) See Rx Instructions .Route 4 04/09/24 Rx .COMPLEX #9 tabs erenumab-aooe 140 mg/mL 140 mg subcut QMONTH migraines #1 09/29/23 04/09/24 Rx subcutaneous auto-injector mL (Aimovig Autoinjector) ondansetron HCl 4 mg tablet 4 mg PO TID PRN nausea and 4 04/09/24 Rx vomiting #90 tabs tizanidine 4 mg tablet (Zanaflex) 8 mg (2 x 4 mg) PO QHS #60 tabs 0 09/29/23 04/09/24 Rx ubrogepant 100 mg tablet 100 mg PO .COMPLEX migraine 04/09/24 Rx headache #16 tabs PFSH Medical History Cardiology follow-up encounter Acute conjunctivitis, left eye History of Holter monitoring Generalized anxiety disorder Vitamin deficiency Bilateral carpal tunnel syndrome Numbness and tingling in both hands Positive Tinel's sign Right ear impacted cerumen History of irregular heartbeat History of echocardiogram Chest pain History of stress test Bipolar 1 disorder Essential hypertension Abnormal EKG Bradycardia Wears glasses Wears dentures Wears partial dentures Alcohol use Migraine headache Hx of vertigo Gastric reflux Former smoker Hypertension Tinnitus Nonscarring hair loss Screening for thyroid disorder Tinnitus, right GI bleed vision problem with headache Neuropathy IBS (irritable bowel syndrome) H/O emotional problems History of eating disorder Chronic neck and back pain Chronic diarrhea H/O hemorrhoids Surgical History History of carpal tunnel surgery of left wrist History of carpal tunnel surgery of right wrist History of salpingectomy History of right salpingo-oophorectomy History of hysterectomy Hx of colonoscopy Hx of esophagogastroduodenoscopy history of upper and lower scope History of cholecystectomy H/O dilation and curettage History of tonsillectomy Family History Mother Hypertension Arthritis Anemia Father Diabetes Anesthesia complication Brother Brain cancer Anxiety Sister Asthma Grandmother CVA (cerebral vascular accident) Daughter Anxiety Grandfather COPD (chronic obstructive pulmonary disease) CVA (cerebral vascular accident) Other Seizures Social History household members: spouse and children number of children: 3 current occupational status: employed current occupation: [employer] history of recent travel: No sexually active: Yes Smoking Status: Former smoker alcohol intake: never substance use type: does not use caffeine: No what type of physical activity do you participate in: running frequency: 3-4 times per week seatbelt use: always do you feel safe at home: Yes additional social history: - [employer] Lumps in breasts Details: ANA MARIA JOSEPH is a 38 year old who presents for lump in right breast. Onset a couple of months ago- noticed an increase size and in pain with right breast. Some pain noted in the left but less than on the right side. denies discharge from nipples or changes in skin color/dimpling. hx (more content not included)... Normal [facility] Emergency Department Summary on 03-29-2024 Emergency Department Summary [facility] Medical Records Department [address] [place] [address] Emergency Department Summary 03/29/24 MR#: [id number] Acct: [id number] Name: ANA MARIA JOSEPH ANN Rep #: [id number] : 1985 38 From: Richi Saucedo DO PCP: HANG Jameson Status:DEP ER Location: ED HPI History of Present Illness Chief Complaint: Lower Extremity Injury Detail of Chief Complaint: Left upper thigh pain/burning Informant: patient Narrative Narrative: Patient presents with left upper thigh pain and burning that started several months ago. Worse over the last couple of days. Called primary care physician and was told to come to the ER to be evaluated for DVT. She denies recent travel or surgery. She denies chest pain or significant shortness of breath. She does state that she was a little short of breath when she got to the ER but that is resolved. No prior history of DVT. Denies injury to her leg. Denies back pain. [facility] Medical History Cardiology follow-up encounter Acute conjunctivitis, left eye History of Holter monitoring Generalized anxiety disorder Vitamin deficiency Bilateral carpal tunnel syndrome Numbness and tingling in both hands Positive Tinel's sign Right ear impacted cerumen History of irregular heartbeat History of echocardiogram Chest pain History of stress test Bipolar 1 disorder Essential hypertension Abnormal EKG Bradycardia Wears glasses Wears dentures Wears partial dentures Alcohol use Migraine headache Hx of vertigo Gastric reflux Former smoker Hypertension Tinnitus Nonscarring hair loss Screening for thyroid disorder Tinnitus, right GI bleed vision problem with headache Neuropathy IBS (irritable bowel syndrome) H/O emotional problems History of eating disorder Chronic neck and back pain Chronic diarrhea H/O hemorrhoids Home Medications ???Medication ???Instructions ???Recorded ???Last Taken ???Type cetirizine 10 mg capsule (Zyrtec) 10 mg PO DAILY 02/15/20 Unknown H istory ibuprofen 800 mg tablet 800 mg PO Q8H PRN pain 7 days #30 03/13/21 Unknown Rx tabs dicyclomine 20 mg tablet 20 mg PO TID PRN abdominal pain Unknown Rx #180 tabs pantoprazole 40 mg tablet,delayed 40 mg PO DAILY reflux #90 tabs 06/11/23 05:00 Rx release (Protonix) buspirone 30 mg tablet 30 mg PO BID 90 days #180 tabs 01/0911/26/23 Rx cariprazine 1.5 mg capsule 1.5 mg PO DAILY 11/25/22 11/26/23 History (Vraylar) cyanocobalamin (vitamin B-12) 100 100 mcg PO DAILY 12/06/22 Unknown History mcg tablet (Vitamin B-12) propranolol 20 mg tablet 20 mg PO DAILY BP 06/05/23 4 History eletriptan 20 mg tablet (Relpax) See Rx Instructions .Route 4 Unknown Rx .COMPLEX #9 tabs erenumab-aooe 140 mg/mL 140 mg subcut QMONTH migraines #1 09/29/23 Unknown Rx subcutaneous auto-injector mL (Aimovig Autoinjector) ondansetron HCl 4 mg tablet 4 mg PO TID PRN nausea and 4 Unknown Rx vomiting #90 tabs tizanidine 4 mg tablet (Zanaflex) 8 mg (2 x 4 mg) PO QHS #60 tabs 0 09/29/23 Unknown Rx ubrogepant 100 mg tablet 100 mg PO .COMPLEX migraine Unknown Rx headache #16 tabs Allergy/AdvReac Type Severity Reaction Status Date / Time Penicillins AdvReac Severe hives Verified 03/29/24 19:00 cefaclor (From Ceclor) AdvReac Intermediate Hives Verified 03/29/24 19:00 doxycycline AdvReac Intermediate Diarrhea Verified 03/29/24 19:00 Family History Mother Hypertension Arthritis Anemia Father Diabetes Anesthesia complication Brother Brain cancer Anxiety Sister Asthma Grandmother CVA (cerebral vascular accident) Daughter Anxiety Grandfather COPD (chronic obstructive pulmonary disease) CVA (cerebral vascular accident) Other Seizures Surgical History History of carpal tunnel surgery of left wrist History of carpal tunnel surgery of right wrist History of salpingectomy History of right salpingo-oophorectomy History of hysterectomy Hx of colonoscopy Hx of esophagogastroduodenoscopy history of upper and lower scope History of cholecystectomy H/O dilation and curettage History of tonsillectomy Social History household members: spouse and children number of children: 3 current occupational status: employed current occupation: [employer] history of recent travel: No sexually active: Yes Smoking Status: Former smoker alcohol intake: never substance use type: does not use caffeine: No what type of physical activity do you participate in: running frequency: 3-4 times per week seatbelt use: always do you feel safe at home: (more content not included)... Normal [facility] Venous Duplex Imag/Limited/U nion 03-29-2024 Venous Duplex Imag/Limited/Uni [facility] Imaging Services [address] [place] [address] Venous Duplex Imag/Limited/Uni MR#: [id number] Acct: [id number] Name: ANA MARIA JOSEPH ANN Rep #: [id number] : 1985 F 38 [facility] PCP: HANG Jameson Status: PRE ER Study: Venous Duplex Imag/Limited/Uni Date of Exam: 0 03/29/24 Exam# [id number] Ordering Dr: Provider,Ed P. PROCEDURE: VENOUS DUPLEX IMAG/LIMITED/UNI REASON FOR EXAM: Left leg pain. Burning, numbness. TECHNIQUE: Venous duplex imaging of the left lower extremities obtained as well as the left common femoral vein. COMPARISON: None. FINDINGS: Left common femoral, proximal femoral, mid femoral, distal femoral, and popliteal veins demonstrate normal compressibility, spontaneity, and augmentation as well as color flow. Left posterior tibial and left peroneal veins demonstrate normal compressibility. Right common femoral vein demonstrates normal compressibility, spontaneity, augmentation, and color flow. No evidence of DVT is identified. US/Venous Duplex Imag/Limited/Uni IMPRESSION: No evidence of DVT in the left lower extremity. 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 Ashkan langford MD Age/Sex: 38/F [place] [facility] Signed Intake Vital Signs 11/26/23 12:04 Height 5 ft 5 in Intake Visit Reasons: LEFT WRIST Chief Complaint: numbness Is patient in pain?: No Allergies Penicillins Adverse Reaction (Severe, Verified 02/10/24 11:08) hives cefaclor (From Ceclor) Adverse Reaction (Intermediate, Verified 02/10/24 11:08) Hives doxycycline Adverse Reaction (Intermediate, Verified 02/10/24 11:08) Diarrhea Medications ???Medication ???Instructions ???Recorded ???Confirmed ???Type cetirizine 10 mg capsule (Zyrtec) 10 mg PO DAILY 02/15/20 02/10/24 History ibuprofen 800 mg tablet 800 mg PO Q8H PRN pain 7 days #30 03/13/21 02/10/24 Rx tabs dicyclomine 20 mg tablet 20 mg PO TID PRN abdominal pain 11/16/21 02/10/24 Rx #180 tabs pantoprazole 40 mg tablet,delayed 40 mg PO DAILY reflux #90 tabs 02/27/22 02/10/24 Rx release (Protonix) buspirone 30 mg tablet 30 mg PO BID 90 days #180 tabs 05/28/22 02/10/24 Rx cariprazine 1.5 mg capsule 1.5 mg PO DAILY 11/25/22 02/10/24 History (Vraylar) cyanocobalamin (vitamin B-12) 100 100 mcg PO DAILY 12/06/22 02/10/24 History mcg tablet (Vitamin B-12) propranolol 20 mg tablet 20 mg PO DAILY BP 06/05/23 02/10/24 History eletriptan 20 mg tablet (Relpax) See Rx Instructions .Route 09/29/23 02/10/24 Rx .COMPLEX #9 tabs erenumab-aooe 140 mg/mL 140 mg subcut QMONTH migraines #1 09/29/23 02/10/24 Rx subcutaneous auto-injector mL (Aimovig Autoinjector) ondansetron HCl 4 mg tablet 4 mg PO TID PRN nausea and 09/29/23 02/10/24 Rx vomiting #90 tabs tizanidine 4 mg tablet (Zanaflex) 8 mg (2 x 4 mg) PO QHS #60 tabs 09/29/23 02/10/24 Rx ubrogepant 100 mg tablet 100 mg PO .COMPLEX migraine 09/29/23 02/10/24 Rx headache #16 tabs PFSH Medical History Cardiology follow-up encounter Acute conjunctivitis, left eye History of Holter monitoring Generalized anxiety disorder Vitamin deficiency Bilateral carpal tunnel syndrome Numbness and tingling in both hands Positive Tinel's sign Right ear impacted cerumen History of irregular heartbeat History of echocardiogram Chest pain History of stress test Bipolar 1 disorder Essential hypertension Abnormal EKG Bradycardia Wears glasses Wears dentures Wears partial dentures Alcohol use Migraine headache Hx of vertigo Gastric reflux Former smoker Hypertension Tinnitus Nonscarring hair loss Screening for thyroid disorder Tinnitus, right GI bleed vision problem with headache Neuropathy IBS (irritable bowel syndrome) H/O emotional problems History of eating disorder Chronic neck and back pain Chronic diarrhea H/O hemorrhoids Surgical History History of carpal tunnel surgery of left wrist History of carpal tunnel surgery of right wrist History of salpingectomy History of right salpingo-oophorectomy History of hysterectomy Hx of colonoscopy Hx of esophagogastroduodenoscopy history of upper and lower scope History of cholecystectomy H/O dilation and curettage History of tonsillectomy Family History Mother Hypertension Arthritis Anemia Father Diabetes Anesthesia complication Brother Brain cancer Anxiety Sister Asthma Grandmother CVA (cerebral vascular accident) Daughter Anxiety Grandfather COPD (chronic obstructive pulmonary disease) CVA (cerebral vascular accident) Other Seizures Social History household members: spouse and children number of children: 3 current occupational status: employed current occupation: [employer] history of recent travel: No sexually active: Yes Smoking Status: Former smoker alcohol intake: never substance use type: does not use caffeine: No what type of physical activity do you participate in: running frequency: 3-4 times per week seatbelt use: always do you feel safe at home: Yes additional social history: - Donald LONG LEFT WRIST Details: This documentation accurately reflects the service provided and the decisions made by me, Dr. Ashkan Ortiz MD 02/10/24 1106. Part of today???s visit was documented by [ ], acting as scribe. ANA MARIA JOSEPH is a 38 year old F here today for 3 months follow-up left open carpal tunnel release, revision from ECTR. Patient is satisfied as the pain has nearly completely gone away and is happy that she went ahead with a s (more content not included)... Normal [facility] Orthopedic Visit Reporton Orthopedic Visit Report [facility] [address] [place] [address] OFFICE VISIT Date of Service: 12/30/23 MR#: [id number] Acct: [id number] Name: ANA MARIA JOSEPH ANN Rep #: [id number] : 1985 Provider: Dr. Ashkan langford MD Age/Sex: 38/F [place] [facility] Status: Signed Intake Vital Signs 11/26/23 12:04 Height 5 ft 5 in Intake Visit Reasons: LEFT HAND Chief Complaint: bump at top of incision that is painful Accompanied by: Self Allergies Penicillins Adverse Reaction (Severe, Verified 12/30/23 09:15) hives cefaclor (From Ceclor) Adverse Reaction (Intermediate, Verified 12/30/23 09:15) Hives doxycycline Adverse Reaction (Intermediate, Verified 12/30/23 09:15) Diarrhea Medications ???Medication ???Instructions ???Recorded ???Confirmed ???Type cetirizine 10 mg capsule (Zyrtec) 10 mg PO DAILY 02/15/20 12/30/23 History ibuprofen 800 mg tablet 800 mg PO Q8H PRN pain 7 days #30 03/13/21 12/30/23 Rx tabs dicyclomine 20 mg tablet 20 mg PO TID PRN abdominal pain 11/16/21 12/30/23 Rx #180 tabs pantoprazole 40 mg tablet,delayed 40 mg PO DAILY reflux #90 tabs 02/27/22 12/30/23 Rx release (Protonix) buspirone 30 mg tablet 30 mg PO BID 90 days #180 tabs 05/28/22 12/30/23 Rx cariprazine 1.5 mg capsule 1.5 mg PO DAILY 11/25/22 12/30/23 History (Vraylar) cyanocobalamin (vitamin B-12) 100 100 mcg PO DAILY 12/06/22 12/30/23 History mcg tablet (Vitamin B-12) propranolol 20 mg tablet 20 mg PO DAILY BP 06/05/23 12/30/23 History eletriptan 20 mg tablet (Relpax) See Rx Instructions .Route 09/29/23 12/30/23 Rx .COMPLEX #9 tabs erenumab-aooe 140 mg/mL 140 mg subcut QMONTH migraines #1 09/29/23 12/30/23 Rx subcutaneous auto-injector mL (Aimovig Autoinjector) ondansetron HCl 4 mg tablet 4 mg PO TID PRN nausea and 09/29/23 12/30/23 Rx vomiting #90 tabs tizanidine 4 mg tablet (Zanaflex) 8 mg (2 x 4 mg) PO QHS #60 tabs 09/29/23 12/30/23 Rx ubrogepant 100 mg tablet 100 mg PO .COMPLEX migraine 09/29/23 12/30/23 Rx headache #16 tabs PFSH Medical History Cardiology follow-up encounter Acute conjunctivitis, left eye History of Holter monitoring Generalized anxiety disorder Vitamin deficiency Bilateral carpal tunnel syndrome Numbness and tingling in both hands Positive Tinel's sign Right ear impacted cerumen History of irregular heartbeat History of echocardiogram Chest pain History of stress test Bipolar 1 disorder Essential hypertension Abnormal EKG Bradycardia Wears glasses Wears dentures Wears partial dentures Alcohol use Migraine headache Hx of vertigo Gastric reflux Former smoker Hypertension Tinnitus Nonscarring hair loss Screening for thyroid disorder Tinnitus, right GI bleed vision problem with headache Neuropathy IBS (irritable bowel syndrome) H/O emotional problems History of eating disorder Chronic neck and back pain Chronic diarrhea H/O hemorrhoids Surgical History History of carpal tunnel surgery of left wrist History of carpal tunnel surgery of right wrist History of salpingectomy History of right salpingo-oophorectomy History of hysterectomy Hx of colonoscopy Hx of esophagogastroduodenoscopy history of upper and lower scope History of cholecystectomy H/O dilation and curettage History of tonsillectomy Family History Mother Hypertension Arthritis Anemia Father Diabetes Anesthesia complication Brother Brain cancer Anxiety Sister Asthma Grandmother CVA (cerebral vascular accident) Daughter Anxiety Grandfather COPD (chronic obstructive pulmonary disease) CVA (cerebral vascular accident) Other Seizures Social History household members: spouse and children number of children: 3 current occupational status: employed current occupation: [employer] history of recent travel: No sexually active: Yes Smoking Status: Former smoker alcohol intake: never substance use type: does not use caffeine: No what type of physical activity do you participate in: running frequency: 3-4 times per week seatbelt use: always do you feel safe at home: Yes additional social history: - Donald LONG LEFT HAND Details: This documentation accurately reflects the service provided and the decisions made by me, Dr. Ashkan Ortiz MD 12/30/23 0911. Part of today???s visit was documented by [ ], acting as scribe. ANA MARIA JOSEPH is a 38 year old F here today for approximately 5 weeks follow-up left open carpal tunnel release. Patient is doing well they had a small suture abscess yesterday, that cleared up little (more content not included)... Normal [facility] Orthopedic Visit Reporton Orthopedic Visit Report [facility] [address] [place] [address] OFFICE VISIT Date of Service: 12/09/23 MR#: [id number] Acct: [id number] Name: ANA MARIA JOSEPH ANN Rep #: [id number] : 1985 Provider: Dr. Ashkan langford MD Age/Sex: 38/F [place] [facility] Status: Signed Intake Vital Signs 10/13/23 10:17 11/26/23 12:04 Height 5 ft 5 in 5 ft 5 in Intake Visit Reasons: left wrist Chief Complaint: left wrist Accompanied by: Self Is patient in pain?: Yes Pain scale (1-10): 3 Allergies Penicillins Adverse Reaction (Severe, Verified 12/09/23 10:46) hives cefaclor (From Ceclor) Adverse Reaction (Intermediate, Verified 12/09/23 10:46) Hives doxycycline Adverse Reaction (Intermediate, Verified 12/09/23 10:46) Diarrhea Medications ???Medication ???Instructions ???Recorded ???Confirmed ???Type cetirizine 10 mg capsule (Zyrtec) 10 mg PO DAILY 02/15/20 12/09/23 History ibuprofen 800 mg tablet 800 mg PO Q8H PRN pain 7 days #30 03/13/21 12/09/23 Rx tabs dicyclomine 20 mg tablet 20 mg PO TID PRN abdominal pain 11/16/21 12/09/23 Rx #180 tabs pantoprazole 40 mg tablet,delayed 40 mg PO DAILY reflux #90 tabs 02/27/22 12/09/23 Rx release (Protonix) buspirone 30 mg tablet 30 mg PO BID 90 days #180 tabs 05/28/22 12/09/23 Rx cariprazine 1.5 mg capsule 1.5 mg PO DAILY 11/25/22 12/09/23 History (Vraylar) cyanocobalamin (vitamin B-12) 100 100 mcg PO DAILY 12/06/22 12/09/23 History mcg tablet (Vitamin B-12) propranolol 20 mg tablet 20 mg PO DAILY BP 06/05/23 12/09/23 History eletriptan 20 mg tablet (Relpax) See Rx Instructions .Route 09/29/23 12/09/23 Rx .COMPLEX #9 tabs erenumab-aooe 140 mg/mL 140 mg subcut QMONTH migraines #1 09/29/23 12/09/23 Rx subcutaneous auto-injector mL (Aimovig Autoinjector) ondansetron HCl 4 mg tablet 4 mg PO TID PRN nausea and 09/29/23 12/09/23 Rx vomiting #90 tabs tizanidine 4 mg tablet (Zanaflex) 8 mg (2 x 4 mg) PO QHS #60 tabs 09/29/23 12/09/23 Rx ubrogepant 100 mg tablet 100 mg PO .COMPLEX migraine 09/29/23 12/09/23 Rx headache #16 tabs oxycodone-acetaminophen 5 mg-325 1 tab PO Q4H PRN pain 3 days #14 11/26/23 12/09/23 Rx mg tablet (Endocet) tabs PFSH Medical History Cardiology follow-up encounter Acute conjunctivitis, left eye History of Holter monitoring Generalized anxiety disorder Vitamin deficiency Bilateral carpal tunnel syndrome Numbness and tingling in both hands Positive Tinel's sign Right ear impacted cerumen History of irregular heartbeat History of echocardiogram Chest pain History of stress test Bipolar 1 disorder Essential hypertension Abnormal EKG Bradycardia Wears glasses Wears dentures Wears partial dentures Alcohol use Migraine headache Hx of vertigo Gastric reflux Former smoker Hypertension Tinnitus Nonscarring hair loss Screening for thyroid disorder Tinnitus, right GI bleed vision problem with headache Neuropathy IBS (irritable bowel syndrome) H/O emotional problems History of eating disorder Chronic neck and back pain Chronic diarrhea H/O hemorrhoids Surgical History History of carpal tunnel surgery of left wrist History of carpal tunnel surgery of right wrist History of salpingectomy History of right salpingo-oophorectomy History of hysterectomy Hx of colonoscopy Hx of esophagogastroduodenoscopy history of upper and lower scope History of cholecystectomy H/O dilation and curettage History of tonsillectomy Family History Mother Hypertension Arthritis Anemia Father Diabetes Anesthesia complication Brother Brain cancer Anxiety Sister Asthma Grandmother CVA (cerebral vascular accident) Daughter Anxiety Grandfather COPD (chronic obstructive pulmonary disease) CVA (cerebral vascular accident) Other Seizures Social History household members: spouse and children number of children: 3 current occupational status: employed current occupation: [employer] history of recent travel: No sexually active: Yes Smoking Status: Former smoker alcohol intake: never substance use type: does not use caffeine: No what type of physical activity do you participate in: running frequency: 3-4 times per week seatbelt use: always do you feel safe at home: Yes additional social history: - Donald LONG left wrist Details: This documentation accurately reflects the service provided and the decisions made by me, Dr. Ashkan Ortiz MD 12/09/23 1027. Part of today???s visit was documented by [ ], acting as scribe. ANA MARIA JOSEPH is a 38 ye (more content not included)... Normal [facility] CBC, Employeeon 12-04-2023 Absolute Lymph 2.96 X10 3/uL Normal 0.83-4.51 [facility] Comment on above: Performed By: #### L 500.2900, L100.0200 ####[facility] [address] [place], [address] Absolute Neut 5.5 X10 3/uL Normal 2.0-7.7 [facility] Comment on above: Performed By: #### L 500.2900, L100.0200 ####[facility] [address] [place], [address] Basophils/100 WBC (Bld) 0.7 % Normal 0-1 [facility] Comment on above: Performed By: #### L 500.2900, L100.0200 ####[facility] [address] [place], [address] Eosinophils/100 WBC (Bld) 2.4 % Normal 0-5 [facility] Comment on above: Performed By: #### L 500.2900, L100.0200 ####[facility] [address] [place], [address] Erythrocyte distribution width (RBC) [Ratio] 13.0 % Normal 11.6-14.6 [facility] Comment on above: Performed By: #### L 500.2900, L100.0200 ####[facility] [address] [place], [address] Hematocrit (Bld) [Volume fraction] 37.0 % Normal 37-47 [facility] Comment on above: Performed By: #### L 500.2900, L100.0200 ####[facility] [address] [place], [address] Hemoglobin (Bld) [Mass/Vol] 12.6 g/dL Normal 12.0-15.0 [facility] Comment on above: Performed By: #### L 500.2900, L100.0200 ####[facility] [address] [place], [address] Lymphocytes/100 WBC (Bld) 31.5 % Normal 19-41 [facility] Comment on above: Performed By: #### L 500.2900, L100.0200 ####[facility] [address] [place], [address] MCH (RBC) [Entitic mass] 31.0 pg Normal 27.0-32.0 [facility] Comment on above: Performed By: #### L 500.2900, L100.0200 ####[facility] [address] [place], [address] MCHC (RBC) [Mass/Vol] 34.1 g/dL Normal 32-36 [facility] Comment on above: Performed By: #### L 500.2900, L100.0200 ####[facility] [address] [place], [address] MCV (RBC) [Entitic vol] 90.9 fL Normal 81-99 [facility] Comment on above: Performed By: #### L 500.2900, L100.0200 ####[facility] [address] [place], [address] Monocytes/100 WBC (Bld) 6.8 % Normal 0-10 [facility] Comment on above: Performed By: #### L 500.2900, L100.0200 ####[facility] [address] [place], [address] Neutrophils/100 WBC (Bld) 58.3 % Normal 47-70 [facility] Comment on above: Performed By: #### L 500.2900, L100.0200 ####[facility] [address] [place], [address] NRBC # 0.00 10 3/uL Normal 0-5 [facility] Comment on above: Performed By: #### L 500.2900, L100.0200 ####[facility] [address] [place], [address] Nucleated RBC (Bld) [#/Vol] 0 10*3/uL Normal 0-5 [facility] Comment on above: Performed By: #### L 500.2900, L100.0200 ####[facility] [address] [place], [address] Platelet mean volume (Bld) [Entitic vol] 10.3 fL Normal 6.2-12.0 [facility] Comment on above: Performed By: #### L 500.2900, L100.0200 ####[facility] [address] [place], [address] Platelets (Bld) [#/Vol] 284 10*3/uL Normal 150-450 [facility] Comment on above: Performed By: #### L 500.2900, L100.0200 ####[facility] [address] [place], [address] RBC (Bld) [#/Vol] 4.07 10*6/uL Low 4.2-5.4 [facility] Comment on above: Performed By: #### L 500.2900, L100.0200 ####[facility] [address] [place], [address] RDW SD 42.6 fl Normal 35.1-43.9 [facility] Comment on above: Performed By: #### L 500.2900, L100.0200 ####[facility] [address] [place], [address] WBC (Bld) [#/Vol] 9.4 10*3/uL Normal 4.4-11.0 [facility] Comment on above: Performed By: #### L 500.2900, L100.0200 ####[facility] [address] [place], [address] Employee [employer] 4 Albumin [Mass/Vol] 3.8 g/dL Normal 3.2-5.0 [facility] Comment on above: Performed By: #### L 500.2900, L100.0200 ####[facility] [address] [place], [address] Albumin/Globulin [Mass ratio] 1.1 {ratio} Normal 0.9-2.4 [facility] Comment on above: Performed By: #### L 500.2900, L100.0200 ####[facility] [address] [place], [address] ALK P 48 U/L Normal 45-117 [facility] Comment on above: Performed By: #### L 500.2900, L100.0200 ####[facility] [address] [place], [address] ALT [Catalytic activity/Vol] 33 U/L Normal 13-56 [facility] Comment on above: Performed By: #### L 500.2900, L100.0200 ####[facility] [address] [place], [address] AST [Catalytic activity/Vol] 26 U/L Normal 15-37 [facility] Comment on above: Performed By: #### L 500.2900, L100.0200 ####[facility] [address] [place], [address] Bilirubin [Mass/Vol] 0.50 mg/dL Normal 0.20-1.00 [facility] Comment on above: Result Comment: For patients on eltrombopag therapy, use of Dimension [place] TBIL is not recommended. Performed By: #### L 500.2900, L100.0200 ####[facility] [address] [place], [address] Bilirubin.direct [Mass/Vol] 0.15 mg/dL Normal 0.00-0.30 [facility] Comment on above: Performed By: #### L 500.2900, L100.0200 ####[facility] [address] [place], [address] BUN/CRE 11.2 RATIO Normal 10-20 [facility] Comment on above: Performed By: #### L 500.2900, L100.0200 ####[facility] [address] [place], [address] CA,Total 9.0 mg/dL Normal 8.5-10.1 [facility] Comment on above: Performed By: #### L 500.2900, L100.0200 ####[facility] [address] [place], [address] Chloride [Moles/Vol] 109 mmol/L High 98-107 [facility] Comment on above: Performed By: #### L 500.2900, L100.0200 ####[facility] [address] [place], [address] CHOL:HDL 3.70 Normal [facility] Comment on above: Performed By: #### L 500.2900, L100.0200 ####[facility] [address] [place], [address] Cholesterol [Mass/Vol] 211 mg/dL High 200 [facility] Comment on above: Result Comment: <200 mg/dL Desirable 200-240 mg/dL Borderline >240 mg/dL High Risk Performed By: #### L 500.2900, L100.0200 ####[facility] [address] [place], [address] Cholesterol in HDL [Mass/Vol] 57 mg/dL Normal [facility] Comment on above: Result Comment: The drugs N-Acetylcysteine and Metamizole may falsely depress this assay. Reference Range HDL <40 mg/dL Low HDL Cholesterol HDL >or= 60 mg/dL High HDL Cholesterol Performed By: #### L 500.2900, L100.0200 ####[facility] [address] [place], [address] Cholesterol in LDL [Mass/Vol] 108 mg/dL Normal 0-130 [facility] Comment on above: Performed By: #### L 500.2900, L100.0200 ####[facility] [address] [place], [address] Cholesterol in VLDL [Mass/Vol] 46 mg/dL High 5-40 [facility] Comment on above: Performed By: #### L 500.2900, L100.0200 ####[facility] [address] [place], [address] CO2 [Moles/Vol] 24.0 mmol/L Normal 21.0-32.0 [facility] Comment on above: Performed By: #### L 500.2900, L100.0200 ####[facility] [address] [place], [address] Creatinine [Mass/Vol] 0.98 mg/dL Normal 0.55-1.02 [facility] Comment on above: Result Comment: The validity of the calculated GFR GFRAA in patients over 70 years has not been determined. Clinical correlation is essential. Performed By: #### L 500.2900, L100.0200 ####[facility] [address] [place], [address] EST GFR - AA 81 mL/min Normal >60 [facility] Comment on above: Result Comment: Afri can Micronesian GFR Calc Performed By: #### L 500.2900, L100.0200 ####[facility] [address] [place], [address] GAP 6 Normal 5-15 [facility] Comment on above: Performed By: #### L 500.2900, L100.0200 ####[facility] [address] [place], [address] GFR/1.73 sq M.predicted among non-blacks MDRD (S/P/Bld) [Vol rate/Area] 67 mL/min/{1.73_m2} Normal >60 [facility] Comment on above: Result Comment: Non- GFR Calc Performed By: #### L 500.2900, L100.0200 ####[facility] [address] [place], [address] Globulin (S) [Mass/Vol] 3.4 g/dL Normal 2.2-4.2 [facility] Comment on above: Performed By: #### L 500.2900, L100.0200 ####[facility] [address] [place], [address] Glucose [Mass/Vol] 90 mg/dL Normal 74-106 [facility] Comment on above: Performed By: #### L 500.2900, L100.0200 ####[facility] [address] [place], [address] LDH 188 U/L Normal 84-246 [facility] Comment on above: Performed By: #### L 500.2900, L100.0200 ####[facility] [address] [place], [address] Phosphate [Mass/Vol] 3.5 mg/dL Normal 2.5-4.9 [facility] Comment on above: Performed By: #### L 500.2900, L100.0200 ####[facility] [address] [place], [address] Potassium [Moles/Vol] 3.8 mmol/L Normal 3.5-5.1 [facility] Comment on above: Performed By: #### L 500.2900, L100.0200 ####[facility] [address] [place], [address] Sodium [Moles/Vol] 139 mmol/L Normal 136-145 [facility] Comment on above: Performed By: #### L 500.2900, L100.0200 ####[facility] [address] [place], [address] T PROT 7.2 g/dL Normal 6.4-8.2 [facility] Comment on above: Performed By: #### L 500.2900, L100.0200 ####[facility] [address] [place], [address] Triglyceride [Mass/Vol] 230 mg/dL High [facility] Comment on above: Result Comment: The drugs N-Acetylcysteine and Metamizole may falsely depress this assay. Serum Triglycerides Reference Interval Normal <150 mg/dL Borderline high 150 - 199 mg/dL High 200 - 499 mg/dL Very High > or = 500 mg/dL Performed By: #### L 500.2900, L100.0200 ####[facility] [address] [place], [address] Urea nitrogen [Mass/Vol] 11 mg/dL Normal 7-18 [facility] Comment on above: Performed By: #### L 500.2900, L100.0200 ####[facility] [address] [place], [address] URIC 5.6 mg/dL Normal 2.6-6.0 [facility] Comment on above: Result Comment: The drugs N-Acetylcysteine and Metamizole may falsely depress this assay. Performed By: #### L 500.2900, L100.0200 ####[facility] [address] [place], [address] US WRIST LTon 11-06-2023 US WRIST LT * * *Final Report* * * DATE OF EXAM: Nov 06 2023 10:29AM [facility] 1135 - US WRIST LT / PROCEDURE REASON: R20.0 * * * * Physician Interpretation * * * * MSK_US LEFT VOLAR WRIST ULTRASOUND: CLINICAL INFORMATION:R20.0 TECHNIQUE: Kelly-scale real-time ultrasound of the volar wrist with power Doppler and dynamic evaluation was performed. Images were archived for documentation. COMPARISON: None FINDINGS: MEDIAN NERVE: Postsurgical changes related to prior carpal tunnel release. There is fascicular prominence and perineural thickening of the median nerve which is flattened as it passes underneath the transverse carpal ligament. The median nerve cross-sectional area is slightly increased, measuring up to 0.16 cm2. GUYON'S CANAL: No ultrasound findings of ulnar neuritis in the canal. No mass seen. CARPAL TUNNEL FLEXOR TENDONS: Tendons appear grossly intact without tenosynovitis. Incidentally noted tendinosis of the first extensor compartment tendons. JOINT SPACES: Volar wrist joint spaces appear grossly maintained. IMPRESSION: Flattening of the median nerve within the carpal tunnel and findings consistent with mild neuritis. Inserting Press Operator: TAINA Transcribe Date/Time: Nov 06 2023 11:11A Dictated by : BECKY PEARSON MD This examination was interpreted and the report reviewed and electronically signed by: BECKY PEARSON MD on Nov 06 2023 11:15AM EST [id number] [facility] (RULTTB) ANA MARIA JOSEPH ([id number]) 1985 F Date Time Provider Department 09/10/23 OSBALDO CH RULTTB During your visit today, we recorded the following information about you: Osbaldo Ch, [facility] 09/11/2023 10:12 AM Addendum Visit Type: US MSK1 Visit Length: 45 OR 60 MINUTES Order Name/Protocol: PLEASE HAVE PT SIGN AUTH OF RELEASE FORM. US WRIST LT; VOLAR+CARPAL TUNNEL-EVAL FOR CTS+SFT LUMP, S/P SURGERY. OUTSIDE ORDER SCANNED INTO CHART/BUILT IN Sliced Apples Preferred Provider: N/A Comment: Please ask if the patient has ever had any prior surgery to their LT wrist. If so, upgrade the visit type to an MSK1 and notate the surgical hx in the Appointment Note. Location: Depending on the surgical hx, this patient can have this exam performed at any of our three locations. Slot held: N/A Chrissie Payne 09/11/2023 1:34 PM Signed Called patient on September 11, 2023 at 1:34 PM to schedule their MSK US exam. No answer, line busy could not leave , 1st attempt. Chrissie Payne 09/15/2023 11:04 AM Signed Patient has been scheduled for their MSK US exam on 10/08/23 : 3:00 PM at [facility]. Allergies As of Date: 09/10/2023 Noted Allergy Reaction CECLOR (CEFACLOR) 12/21/2004 2 - Rash DOXYCYCLINE 11/10/2014 2 - Rash 6 - Diarrhea PENICILLINS 12/21/2004 4 - Hives SEASONAL ALLERGIES 06/08/2009 Date Reviewed: 07/08/2018 Reviewed by: Marilyn Cardoso ([facility])SUDHA - Fully Assessed Reason for Visit: Appointment [186] Prescriptions as of 09/15/2023 - rizatriptan (MAXALT) 10 mg tablet TAKE [...] meds 04/01/2011 Problem List As Of Date 09/10/2023 Noted Resolved SUPERVIS OTHER NORMAL PREG [Z34.80] 10/31/2005 02/15/2006 SUPERVIS OTHER NORMAL PREG [Z34.80] 02/21/2006 02/03/2007 DEPRESSIVE DISORDER NEC [F32.89] 02/03/2007 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] 02/03/2007 [...] Elevated CK [R74.8] 11/06/2017 Encounter Status:Closed by CHRISSIE PAYNE on 09/15/23 Normal [facility] Absolute lymphocyte countOrd ered By: Ashkan Ortiz on 06-19-2023 Lymphocytes Auto (Unsp spec) [#/Vol] 2.17 10*3/uL 0.83-4.51 [facility] Automated lymphocyte count a s percentage of total leukocytesOrdered By: Ashkan Ortiz on 06-19-2023 Lymphocytes/100 WBC Auto (Unsp spec) 29.7 % 19-41 [facility] Basophil percentageOrdered B y: Ashkan Ortiz on 06-19-2023 Basophils/100 WBC (Bld) 0.5 % 0-1 [facility] Eosinophils/100 WBC (Bld) 1.8 % 0-5 [facility] Hemoglobin (Bld) [Mass/Vol] 12.2 g/dL 12.0-15.0 [facility] Monocytes/100 WBC (Bld) 6.2 % 0-10 [facility] Neutrophils (Bld) [#/Vol] 4.5 10*3/uL 2.0-7.7 [facility] Neutrophils/100 WBC (Bld) 61.7 % 47-70 [facility] WBC (Bld) [#/Vol] 7.3 10*3/uL 4.4-11.0 [facility] Determination of erythrocyte mean corpuscular volume (MCV)Ordered By: Ashkan Ortiz on 06-19-2023 MCV (RBC) [Entitic vol] 88.5 fL 81-99 [facility] Erythrocyte distribution wid th ratioOrdered By: Ashkan Ortiz on 06-19-2023 Erythrocyte distribution width (RBC) [Ratio] 12.7 % 11.6-14.6 [facility] Erythrocyte distribution wid th standard deviationOrdered By: Ashkan Ortiz on 06-19-2023 Erythrocyte distribution width (RBC) [Entitic vol] 40.9 fL 35.1-43.9 [facility] Hematocrit Auto (Bld) [Volum e fraction]Ordered By: Ashkan Ortiz on 06-19-2023 Hematocrit (Bld) [Volume fraction] 36.2 % 37-47 [facility] Immature granulocytes/100 WB C Auto (Bld)Ordered By: Ashkan Ortiz on 06-19-2023 Immature granulocytes/100 WBC (Bld) 0.100 % 0.0-0.9 [facility] Comment on above: IG% - Immature Granu locytes (promyelocytes, myelocytes and metamyelocytes) > 1% indicates that a LEFT SHIFT is Present. Laboratory - Hematology and Cell countsOrdered By: Ashkan Ortiz on 06-19-2023 MCH (RBC) [Entitic mass] 29.8 pg 27.0-32.0 [facility] MCHC (RBC) [Mass/Vol] 33.7 g/dL 32-36 [facility] Nucleated RBC/100 WBC (Bld) [Ratio] 0 % 0-5 [facility] Platelet mean volume (Bld) [Entitic vol] 10.3 fL 6.2-12.0 [facility] Platelets (Bld) [#/Vol] 301 10*3/uL 150-450 [facility] No Panel InformationOrdered By: Ashkan Ortiz on 06-19-2023 C-Reactive Protein Extended Range < 2.90 mg/L 0.0-3.0 [facility] Comment on above: C-Reactive Protein ( CRP) provides useful information for thediagnosis, therapy and monitoring of inflammatory processesand associated diseases. For the evaluation of Relative Riskfor Cardiovascular Disease, a High Sensitivity CRP (HSCRP)should be ordered. RBC Auto (Bld) [#/Vol]Ordere d By: Ashkan Ortiz on 06-19-2023 RBC (Bld) [#/Vol] 4.09 10*6/uL 4.2-5.4 [facility] Laboratory - Chemistry and C hemistry - challengeOrdered By: Vince Odom on 06-11-2023 HCG ( test) Ql (U) Negative [facility] Comment on above: Very dilute urine sp ecimens, as indicated by a low specificgravity, may not contain c s s representative levels of hCG. If is still suspected, a first morning urinespecimen should be collected 48 hours later and tested. Absolute lymphocyte countOrd ered By: Francesca Arthur on 02-25-2023 Lymphocytes Auto (Unsp spec) [#/Vol] 1.94 10*3/uL 0.83-4.51 [facility] Basophil percentageOrdered B y: Francesca Arthur on 02-25-2023 Basophils/100 WBC (Bld) 0.7 % 0-1 [facility] Eosinophils/100 WBC (Bld) 1.9 % 0-5 [facility] Neutrophils (Bld) [#/Vol] 4.2 10*3/uL 2.0-7.7 [facility] Neutrophils/100 WBC (Bld) 61.5 % 47-70 [facility] WBC (Bld) [#/Vol] 6.8 10*3/uL 4.4-11.0 [facility] Blood erythrocytes count (nu mber/volume)Ordered By: Francesca Arthur on 02-25-2023 RBC (Bld) [#/Vol] 3.81 10*6/uL 4.2-5.4 [facility] Blood hemoglobin measurement (mass/volume)Ordered By: Francesca Arthur on 02-25-2023 Hemoglobin (Bld) [Mass/Vol] 11.6 g/dL 12.0-15.0 [facility] Blood lymphocytes/100 leukoc ytesOrdered By: Francesca Arthur on 02-25-2023 Lymphocytes/100 WBC (Bld) 28.4 % 19-41 [facility] Blood monocytes/100 leukocyt esOrdered By: Francesac Arthur on 02-25-2023 Monocytes/100 WBC (Bld) 7.2 % 0-10 [facility] Blood platelet mean volumeOr dered By: Francesca Arthur on 02-25-2023 Platelet mean volume (Bld) [Entitic vol] 9.8 fL 6.2-12.0 [facility] Determination of erythrocyte mean corpuscular volume (MCV)Ordered By: Francesca Arthur on 02-25-2023 MCV (RBC) [Entitic vol] 91.3 fL 81-99 [facility] Hematocrit Auto (Bld) [Volum e fraction]Ordered By: Francesca Arthur on 02-25-2023 Hematocrit (Bld) [Volume fraction] 34.8 % 37-47 [facility] Laboratory - Hematology and Cell countsOrdered By: Francesca Arthur on 02-25-2023 Erythrocyte distribution width (RBC) [Entitic vol] 44.3 fL 35.1-43.9 [facility] Erythrocyte distribution width (RBC) [Ratio] 13.2 % 11.6-14.6 [facility] Immature granulocytes/100 WBC (Bld) 0.300 % 0.0-0.9 [facility] Comment on above: IG% - Immature Granu locytes (promyelocytes, myelocytes and metamyelocytes) > 1% indicates that a LEFT SHIFT is Present. MCH (RBC) [Entitic mass] 30.4 pg 27.0-32.0 [facility] Nucleated RBC/100 WBC (Bld) [Ratio] 0 % 0-5 [facility] MCHC Auto (RBC) [Mass/Vol]Or dered By: Francesca Arthur on 02-25-2023 MCHC (RBC) [Mass/Vol] 33.3 g/dL 32-36 [facility] Platelets bldOrdered By: Rosy Arthur on 02-25-2023 Platelets (Bld) [#/Vol] 289 10*3/uL 150-450 [facility] Serum or plasma prolactin me asurement (mass/volume)Ordered By: Francesca Arthur on 02-25-2023 Prolactin [Mass/Vol] 19.7 ng/mL [facility] Comment on above: NORMAL REFERENCE RAN GES FEMALE NON- 2.2 - 30.3 ng/mL 8.1 - 347.6 ng/mL POST-MENOPAUSAL 0.7 - 31.5 ng/mL MALE 2.5 - 17.4 ng/mL Erythrocyte sedimentation ra teOrdered By: Angus Batista on 02-18-2023 ESR (Bld) [Velocity] 7 mm/h 0-30 [facility] Iron measurement (mass/mass) Ordered By: Angus Batista on 02-18-2023 Iron (Unsp spec) [Mass/Mass] 155 ug/dL 50-170 [facility] Laboratory - Chemistry and C hemistry - challengeOrdered By: Angus Batista on 02-18-2023 Cobalamin (Vitamin B12) [Mass/Vol] 667 pg/mL 211-911 [facility] No Panel InformationOrdered By: Angus Batista on 02-18-2023 Anti-Nuclear Antibody Screen Negative Negative [facility] Comment on above: Performed at: [facility] [place] [id number] Director: Flex Chavez PhD, Phone: [phone] Total Iron Binding Capacity 379 ug/dL 250-450 [facility] Vitamin D 25-Hydroxy 42.8 ng/mL [facility] Comment on above: Vitamin D 25(OH) Sta tus Range Deficiency <20 ng/mL (50nmol/L) Insufficiency 20 - 30 ng/mL (50 - 75 nmol/L) Sufficiency 30 - 100 ng/mL (75 - 250 nmol/L) Toxicity >100 ng/mL (>250 nmol/L) Serum cyclic citrullinated p eptide IgG antibody assay (units/volume)Ordered By: Angus Batista on 02-18-2023 Cyclic citrullinated peptide IgG Qn 6 units 0-19 [facility] Comment on above: Negative <20 Weak po sitive 20 - 39 Moderate positive 40 - 59 Strong positive >59Performed at: [facility] [address] [id number] Director: Flex Chavez PhD, Phone: [phone] Serum or plasma C reactive p rotein measurement (mass/volume)Ordered By: Angus Batista on 02-18-2023 CRP [Mass/Vol] mg/L 0.0-3.0 [facility] Comment on above: C-Reactive Protein ( CRP) provides useful information for thediagnosis, therapy and monitoring of inflammatory processesand associated diseases. For the evaluation of Relative Riskfor Cardiovascular Disease, a High Sensitivity CRP (HSCRP)should be ordered. Serum or plasma iron saturat ion measurement (mass fraction)Ordered By: Angus Batista on 02-18-2023 Iron saturation [Mass fraction] 40.9 % 15.0-55.0 [facility] Serum rheumatoid factor dete ctionOrdered By: Angus Batista on 02-18-2023 Rheumatoid factor Ql (S) < 10.0 IU/mL <15 [facility] Thin prep Papanicolaou smear with manual screeningOrdered By: Angus Batista on 02-18-2023 Thin prep Papanicolaou smear with manual screening Negative Negative [facility] Comment on above: Lyme antibodies not detected. Reflex testing is notindicated.No laboratory evidence of infection with B. burgdorferi(Lyme disease). Negative results may occur in patientsrecently infected (less than or equal to 14 days) with B.burgdorferi. If recent infection is suspected, repeattesting on a new sample collected in 7 to 14 days isrecommended. Iron measurement (mass/mass) Ordered By: Angus Batista on 11-25-2022 Iron (Unsp spec) [Mass/Mass] 66 ug/dL 50-170 [facility] Laboratory - Chemistry and C hemistry - challengeOrdered By: Angus Batista on 11-25-2022 Free T4 [Mass/Vol] 0.88 ng/dL 0.76-1.46 [facility] No Panel InformationOrdered By: Angus Batista on 11-25-2022 Thyroid Stimulating Hormone (TSH) 2.51 uIU/mL 0.358-3.74 [facility] Total Iron Binding Capacity 356 ug/dL 250-450 [facility] Serum or plasma ferritin asa surement (mass/volume)Ordered By: Angus Batista on 11-25-2022 Ferritin [Mass/Vol] 153 ng/mL 8-252 [facility] Serum or plasma iron saturat ion measurement (mass fraction)Ordered By: Angus Batista on 11-25-2022 Iron saturation [Mass fraction] 18.5 % 15.0-55.0 [facility] Stool gastrointestinal hemog lobin detection by immunologic methodOrdered By: Angus Batista on 11-14-2022 Lower GI hemoglobin IA Ql (Stl) [facility] Lower GI hemoglobin IA Ql (Stl) [facility] Stool gastrointestinal hemog lobin detection by immunologic methodOrdered By: JESS ZAZUETA on 11-13-2022 Lower GI hemoglobin IA Ql (Stl) [facility] Lower GI hemoglobin IA Ql (Stl) [facility] Stool gastrointestinal hemog lobin detection by immunologic methodOrdered By: Angus Batista on 11-12-2022 Lower GI hemoglobin IA Ql (Stl) [facility] Lower GI hemoglobin IA Ql (Stl) [facility] Iron measurement (mass/mass) Ordered By: Angus Batista on 11-08-2022 Iron (Unsp spec) [Mass/Mass] 120 ug/dL 50-170 [facility] Laboratory - Chemistry and C hemistry - challengeOrdered By: Angus Batista on 11-08-2022 Cobalamin (Vitamin B12) [Mass/Vol] 480 pg/mL 211-911 [facility] Free T4 [Mass/Vol] 0.77 ng/dL 0.76-1.46 [facility] No Panel InformationOrdered By: Angus Batista on 11-08-2022 Thyroglobulin Antibody < 1.0 IU/mL 0.0-0.9 [facility] Comment on above: Thyroglobulin Antibo dy measured by [place]ón CoulterMethodologyPerformed at: [facility] [address] [id number] Director: Flex Chavez PhD, Phone: [phone] Total Iron Binding Capacity 390 ug/dL 250-450 [facility] Serum or plasma ferritin asa surement (mass/volume)Ordered By: Angus Batista on 11-08-2022 Ferritin [Mass/Vol] 168 ng/mL 8-252 [facility] Serum or plasma iron saturat ion measurement (mass fraction)Ordered By: Angus Batista on 11-08-2022 Iron saturation [Mass fraction] 30.8 % 15.0-55.0 [facility] Serum or plasma thyroperoxid ase antibody assay (units/volume)Ordered By: Angus Batista on 11-08-2022 TPO Ab Qn [IU]/mL 0-34 [facility] No Panel InformationOrdered By: Ana Maria Lomax on 11-07-2022 Follicle Stimulating Hormone 1.4 mIU/mL [facility] Comment on above: NORMAL REFERENCE RAN GES FEMALE FOLLICULAR 2.3 - 12.6 mIU/mL MID-CYCLE PEAK 5.2 - 17.5 mIU/mL LUTEAL 1.7 - 12.9 mIU/mL POST-MENOPAUSAL ON MHT 5.9 - 72.8 mIU/mL NOT ON MHT 12.7 - 132.2 mlU/mL MALE 0.7 - 10.8 mIU/mL Luteinizing Hormone 2.3 mIU/mL [facility] Comment on above: NORMAL REFERENCE RAN GES FEMALE FOLLICULAR 1.9 - 26.2 mIU/mL MID-CYCLE PEAK 22.8 - 76.1 mIU/mL LUTEAL 0.6 - 16.6 mIU/mL POST-MENOPAUSAL ON MHT 1.1 - 52.4 mIU/mL NOT ON MHT 8.6 - 61.8 mIU/mL MALE 1.2 - 10.6 mIU/mL Thyroid Stimulating Hormone (TSH) 5.12 uIU/mL 0.358-3.74 [facility] Serum or plasma estradiol (E 2) measurement (mass/volume)Ordered By: Ana Maria Lomax on 11-07-2022 E2 [Mass/Vol] 300.0 pg/mL [facility] Comment on above: NORMAL REFERENCE RAN GES FEMALE FOLLICULAR 21.4 - 164.8 pg/mL MID-CYCLE PEAK 49.9 - 367.2 pg/mL LUTEAL 40.2 - 259.0 pg/mL POST-MENOPAUSAL ON MHT <11.0 - 462.1 pg/mL NOT ON MHT <11.0 - 58.3 pg/mL MALE <11.0 - 52.5 pg/mL NOTE:[employer] HAS CONFIRMED THE DRUG FULVETRANT (FASLODEX) MAY CAUSE FALSELY ELEVATED ESTRADIOL RESULTS WHEN USING THIS TEST METHOD. IF PATIENT IS TAKING FULVESTRANT AN ALTERNATIVE METHOD SHOULD BE USED TO DETERMINE ESTRADIOL CONCENTRATION. Absolute lymphocyte countOrd ered By: HEALTH ASSESSMENT on 10-29-2022 Lymphocytes Auto (Unsp spec) [#/Vol] 2.83 10*3/uL 0.83-4.51 [facility] Absolute reticulocyte countO rdered By: HEALTH ASSESSMENT on 10-29-2022 Reticulocytes (Bld) [#/Vol] 0.00 10*3/uL 0-5 [facility] Basophil percentageOrdered B y: HEALTH ASSESSMENT on 10-29-2022 Basophil percentage 4.9 mg/dL 2.5-4.9 [facility] Bilirubin [Mass/Vol] 0.30 mg/dL 0.20-1.00 [facility] Comment on above: For patients on eltr ombopag therapy, use of Dimension [place] TBIL is not recommended. Chloride [Moles/Vol] 109 mmol/L 98-107 [facility] Cholesterol [Mass/Vol] 200 mg/dL <200 [facility] Comment on above: <200 mg/dL Desirable 200-240 mg/dL Borderline >240 mg/dL High Risk Glucose [Mass/Vol] 101 mg/dL 74-106 [facility] Comment on above: Fasting Glucose resu lt from 100 to 125 mg/dL suggests IMPAIRED HOMEOSTASIS per A.D.A. criteria. LDH [Catalytic activity/Vol] 212 U/L 84-246 [facility] Neutrophils (Bld) [#/Vol] 3.2 10*3/uL 2.0-7.7 [facility] Potassium [Moles/Vol] 4.4 mmol/L 3.5-5.1 [facility] Protein [Mass/Vol] 6.7 g/dL 6.4-8.2 [facility] Sodium [Moles/Vol] 141 mmol/L 136-145 [facility] Triglyceride [Mass/Vol] 234 mg/dL <199 [facility] Comment on above: The drugs N-Acetylcy steine and Metamizole may falsely depress this assay.Serum Triglycerides Reference Interval Normal <150 mg/dL Borderline high 150 - 199 mg/dL High 200 - 499 mg/dL Very High > or = 500 mg/dL WBC (Bld) [#/Vol] 6.8 10*3/uL 4.4-11.0 [facility] Bilirubin Test strip Ql (U)O rdered By: HEALTH ASSESSMENT on 10-29-2022 Bilirubin Ql (U) 1 mg/dL Negative [facility] Comment on above: COLOR OF URINE MAY A FFECT DIPSTICK RESULTS. Blood erythrocytes count (nu mber/volume)Ordered By: HEALTH ASSESSMENT on 10-29-2022 RBC (Bld) [#/Vol] 3.83 10*6/uL 4.2-5.4 [facility] Blood hemoglobin measurement (mass/volume)Ordered By: HEALTH ASSESSMENT on 10-29-2022 Hemoglobin (Bld) [Mass/Vol] 11.8 g/dL 12.0-15.0 [facility] Blood platelet mean volumeOr dered By: HEALTH ASSESSMENT on 10-29-2022 Platelet mean volume (Bld) [Entitic vol] 10.4 fL 6.2-12.0 [facility] Determination of erythrocyte mean corpuscular volume (MCV)Ordered By: HEALTH ASSESSMENT on 10-29-2022 MCV (RBC) [Entitic vol] 94.3 fL 81-99 [facility] Direct bilirubinOrdered By: HEALTH ASSESSMENT on 10-29-2022 Bilirubin.direct [Mass/Vol] 0.10 mg/dL 0.00-0.30 [facility] Hematocrit Auto (Bld) [Volum e fraction]Ordered By: HEALTH ASSESSMENT on 10-29-2022 Hematocrit (Bld) [Volume fraction] 36.1 % 37-47 [facility] Ketones Test strip Ql (U)Ord ered By: HEALTH ASSESSMENT on 10-29-2022 Ketones Ql (U) 5 mg/dl Negative [facility] Laboratory - Chemistry and C hemistry - challengeOrdered By: HEALTH ASSESSMENT on 10-29-2022 ALP [Catalytic activity/Vol] 48 U/L 45-117 [facility] ALT [Catalytic activity/Vol] 28 U/L 13-56 [facility] Cholesterol.total/Jennifer sterol in HDL [Mass ratio] 4.30 {ratio} [facility] CO2 [Moles/Vol] 28.0 mmol/L 21.0-32.0 [facility] Globulin (S) [Mass/Vol] 3.1 g/dL 2.2-4.2 [facility] Urea nitrogen/Creatinine [Mass ratio] 13.7 mg/mg 10-20 [facility] Laboratory - Hematology and Cell countsOrdered By: HEALTH ASSESSMENT on 10-29-2022 Erythrocyte distribution width (RBC) [Entitic vol] 45.2 fL 35.1-43.9 [facility] Erythrocyte distribution width (RBC) [Ratio] 13.2 % 11.6-14.6 [facility] MCH (RBC) [Entitic mass] 30.8 pg 27.0-32.0 [facility] Nucleated RBC/100 WBC (Bld) [Ratio] 0 % 0-5 [facility] MCHC Auto (RBC) [Mass/Vol]Or dered By: HEALTH ASSESSMENT on 10-29-2022 MCHC (RBC) [Mass/Vol] 32.7 g/dL 32-36 [facility] Nitrite Test strip Ql (U)Ord ered By: HEALTH ASSESSMENT on 10-29-2022 Nitrite Ql (U) Negative Negative [facility] No Panel InformationOrdered By: HEALTH ASSESSMENT on 10-29-2022 Estimated GFR (MDRD) Amer 85 mL/min >60 [facility] Comment on above: GFR Calc Estimated GFR (MDRD) Non-Af Amer 70 mL/min >60 [facility] Comment on above: Non- GFR Calc Platelets bldOrdered By: E[facility]Y [facility] ASSESSMENT on 10-29-2022 Platelets (Bld) [#/Vol] 249 10*3/uL 150-450 [facility] Protein Test strip Ql (U)Ord ered By: HEALTH ASSESSMENT on 10-29-2022 Protein Ql (U) 30 mg/dl Negative [facility] Segmented neutrophils/100 WB C Auto (Bld)Ordered By: HEALTH ASSESSMENT on 10-29-2022 Segmented neutrophils/100 WBC (Bld) 47.2 % 47-70 [facility] Serum or plasma albumin milton urement (mass/volume)Ordered By: HEALTH ASSESSMENT on 10-29-2022 Albumin [Mass/Vol] 3.6 g/dL 3.2-5.0 [facility] Serum or plasma albumin/glob ulin mass ratioOrdered By: HEALTH ASSESSMENT on 10-29-2022 Albumin/Globulin [Mass ratio] 1.2 {ratio} 0.9-2.4 [facility] Serum or plasma calcium milton urement (mass/volume)Ordered By: HEALTH ASSESSMENT on 10-29-2022 Calcium [Mass/Vol] 8.9 mg/dL 8.5-10.1 [facility] Serum or plasma cholesterol in HDL measurement (mass/volume)Ordered By: HEALTH ASSESSMENT on 10-29-2022 Cholesterol in HDL [Mass/Vol] 47 mg/dL >40 [facility] Comment on above: The drugs N-Acetylcy steine and Metamizole may falsely depress this assay. Reference Range HDL <40 mg/dL Low HDL Cholesterol HDL >or= 60 mg/dL High HDL Cholesterol Serum or plasma cholesterol in VLDL measurement (mass/volume)Ordered By: HEALTH ASSESSMENT on 10-29-2022 Cholesterol in VLDL [Mass/Vol] 47 mg/dL 5-40 [facility] Serum or plasma creatinine m easurement (mass/volume)Ordered By: HEALTH ASSESSMENT on 10-29-2022 Creatinine [Mass/Vol] 0.95 mg/dL 0.55-1.02 [facility] Comment on above: The validity of the calculated GFR & GFRAA in patients over 70 years has not been determined. Clinical correlation is essential. Serum or plasma low density lipoprotein (LDL) cholesterol measurement (mass/volume)Ordered By: HEALTH ASSESSMENT on 10-29-2022 Cholesterol in LDL [Mass/Vol] 106 mg/dL 0-130 [facility] Serum or plasma urea nitroge n measurement (mass/volume)Ordered By: HEALTH ASSESSMENT on 10-29-2022 Urea nitrogen [Mass/Vol] 13 mg/dL 7-18 [facility] Serum or plasma uric acid me asurement (mass/volume)Ordered By: HEALTH ASSESSMENT on 10-29-2022 Urate [Mass/Vol] 6.2 mg/dL 2.6-6.0 [facility] Comment on above: The drugs N-Acetylcy steine and Metamizole may falsely depress this assay. Thin prep Papanicolaou smear with manual screeningOrdered By: HEALTH ASSESSMENT on 10-29-2022 Thin prep Papanicolaou smear with manual screening 22 U/L 15-37 [facility] Thin prep Papanicolaou smear with manual screening 4 5-15 [facility] Urine blood detectionOrdered By: HEALTH ASSESSMENT on 10-29-2022 RBC Ql (U) 25 /ul Negative [facility] Urine clarityOrdered By: HEA LTH ASSESSMENT on 10-29-2022 Clarity (U) Cloudy Clear [facility] Urine color determinationOrd ered By: HEALTH ASSESSMENT on 10-29-2022 Color (U) Yellow Yellow [facility] Urine glucose detectionOrder ed By: HEALTH ASSESSMENT on 10-29-2022 Glucose Ql (U) Normal mg/dl Normal [facility] Urine leukocyte esterase det ection by dipstickOrdered By: HEALTH ASSESSMENT on 10-29-2022 Leukocyte esterase Test strip Ql (U) 25 /ul Negative [facility] Urine pHOrdered By: HEALTH A SSESSMENT on 10-29-2022 pH (U) 5.0 [pH] 5.0 - 8.0 [facility] Urine specific gravity measu rementOrdered By: HEALTH ASSESSMENT on 10-29-2022 Specific gravity (U) [Rel density] 1.030 1.002-1.03 0 [facility] Urobilinogen Auto test strip Ql (U)Ordered By: HEALTH ASSESSMENT on 10-29-2022 Urobilinogen Ql (U) 1 mg/dl Normal [facility] Absolute lymphocyte countOrd ered By: Angus Batista on 08-07-2022 Lymphocytes Auto (Unsp spec) [#/Vol] 2.01 10*3/uL 0.83-4.51 [facility] Basophil percentageOrdered B y: Angus Batista on 08-07-2022 Basophils/100 WBC (Bld) 0.6 % 0-1 [facility] Bilirubin [Mass/Vol] 0.40 mg/dL 0.20-1.00 [facility] Comment on above: For patients on eltr ombopag therapy, use of Dimension [place] TBIL is not recommended. Chloride [Moles/Vol] 109 mmol/L 98-107 [facility] Cholesterol [Mass/Vol] 227 mg/dL <200 [facility] Comment on above: <200 mg/dL Desirable 200-240 mg/dL Borderline >240 mg/dL High Risk Eosinophils/100 WBC (Bld) 2.0 % 0-5 [facility] Glucose [Mass/Vol] 96 mg/dL 74-106 [facility] Neutrophils (Bld) [#/Vol] 4.3 10*3/uL 2.0-7.7 [facility] Neutrophils/100 WBC (Bld) 61.1 % 47-70 [facility] Potassium [Moles/Vol] 4.2 mmol/L 3.5-5.1 [facility] Protein [Mass/Vol] 7.4 g/dL 6.4-8.2 [facility] Sodium [Moles/Vol] 139 mmol/L 136-145 [facility] Triglyceride [Mass/Vol] 142 mg/dL <199 [facility] Comment on above: The drugs N-Acetylcy steine and Metamizole may falsely depress this assay.Serum Triglycerides Reference Interval Normal <150 mg/dL Borderline high 150 - 199 mg/dL High 200 - 499 mg/dL Very High > or = 500 mg/dL WBC (Bld) [#/Vol] 7.1 10*3/uL 4.4-11.0 [facility] Blood erythrocytes count (nu mber/volume)Ordered By: Angus Batista on 08-07-2022 RBC (Bld) [#/Vol] 4.10 10*6/uL 4.2-5.4 [facility] Blood hemoglobin measurement (mass/volume)Ordered By: Angus Batista on 08-07-2022 Hemoglobin (Bld) [Mass/Vol] 12.4 g/dL 12.0-15.0 [facility] Blood lymphocytes/100 leukoc ytesOrdered By: Angus Batista on 08-07-2022 Lymphocytes/100 WBC (Bld) 28.5 % 19-41 [facility] Blood monocytes/100 leukocyt esOrdered By: Angus Batista on 08-07-2022 Monocytes/100 WBC (Bld) 7.5 % 0-10 [facility] Blood platelet mean volumeOr dered By: Angus Batista on 08-07-2022 Platelet mean volume (Bld) [Entitic vol] 10.6 fL 6.2-12.0 [facility] Determination of erythrocyte mean corpuscular volume (MCV)Ordered By: Angus Batista on 08-07-2022 MCV (RBC) [Entitic vol] 93.4 fL 81-99 [facility] Hematocrit Auto (Bld) [Volum e fraction]Ordered By: Angus Batista on 08-07-2022 Hematocrit (Bld) [Volume fraction] 38.3 % 37-47 [facility] Laboratory - Chemistry and C hemistry - challengeOrdered By: Angus Batista on 08-07-2022 ALP [Catalytic activity/Vol] 49 U/L 45-117 [facility] ALT [Catalytic activity/Vol] 30 U/L 13-56 [facility] CO2 [Moles/Vol] 25.0 mmol/L 21.0-32.0 [facility] Cobalamin (Vitamin B12) [Mass/Vol] 279 pg/mL 211-911 [facility] Globulin (S) [Mass/Vol] 3.6 g/dL 2.2-4.2 [facility] Urea nitrogen/Creatinine [Mass ratio] 12.0 mg/mg 10-20 [facility] Laboratory - Hematology and Cell countsOrdered By: Angus Batista on 08-07-2022 Erythrocyte distribution width (RBC) [Entitic vol] 44.0 fL 35.1-43.9 [facility] Erythrocyte distribution width (RBC) [Ratio] 12.8 % 11.6-14.6 [facility] Immature granulocytes/100 WBC (Bld) 0.300 % 0.0-0.9 [facility] Comment on above: IG% - Immature Granu locytes (promyelocytes, myelocytes and metamyelocytes) > 1% indicates that a LEFT SHIFT is Present. MCH (RBC) [Entitic mass] 30.2 pg 27.0-32.0 [facility] Nucleated RBC/100 WBC (Bld) [Ratio] 0 % 0-5 [facility] MCHC Auto (RBC) [Mass/Vol]Or dered By: Angus Batista on 08-07-2022 MCHC (RBC) [Mass/Vol] 32.4 g/dL 32-36 [facility] No Panel InformationOrdered By: Angus Batista on 08-07-2022 Estimated GFR (MDRD) Amer 89 mL/min >60 [facility] Comment on above: GFR Calc Estimated GFR (MDRD) Non-Af Amer 73 mL/min >60 [facility] Comment on above: Non- GFR Calc Thyroid Stimulating Hormone (TSH) 1.83 uIU/mL 0.358-3.74 [facility] Vitamin D 25-Hydroxy 53.2 ng/mL [facility] Comment on above: Vitamin D 25(OH) Sta tus Range Deficiency <20 ng/mL (50nmol/L) Insufficiency 20 - 30 ng/mL (50 - 75 nmol/L) Sufficiency 30 - 100 ng/mL (75 - 250 nmol/L) Toxicity >100 ng/mL (>250 nmol/L) Platelets bldOrdered By: Janae Batista on 08-07-2022 Platelets (Bld) [#/Vol] 324 10*3/uL 150-450 [facility] Serum or plasma albumin milton urement (mass/volume)Ordered By: Angus Batista on 08-07-2022 Albumin [Mass/Vol] 3.8 g/dL 3.2-5.0 [facility] Serum or plasma albumin/glob ulin mass ratioOrdered By: Angus Batista on 08-07-2022 Albumin/Globulin [Mass ratio] 1.1 {ratio} 0.9-2.4 [facility] Serum or plasma calcium milton urement (mass/volume)Ordered By: Angus Batista on 08-07-2022 Calcium [Mass/Vol] 9.2 mg/dL 8.5-10.1 [facility] Serum or plasma cholesterol in HDL measurement (mass/volume)Ordered By: Angus Batista on 08-07-2022 Cholesterol in HDL [Mass/Vol] 57 mg/dL >40 [facility] Comment on above: The drugs N-Acetylcy steine and Metamizole may falsely depress this assay. Reference Range HDL <40 mg/dL Low HDL Cholesterol HDL >or= 60 mg/dL High HDL Cholesterol Serum or plasma cholesterol in VLDL measurement (mass/volume)Ordered By: Angus Batista on 08-07-2022 Cholesterol in VLDL [Mass/Vol] 28 mg/dL 5-40 [facility] Serum or plasma creatinine m easurement (mass/volume)Ordered By: Angus Batista on 08-07-2022 Creatinine [Mass/Vol] 0.91 mg/dL 0.55-1.02 [facility] Comment on above: The validity of the calculated GFR & GFRAA in patients over 70 years has not been determined. Clinical correlation is essential. Serum or plasma low density lipoprotein (LDL) cholesterol measurement (mass/volume)Ordered By: Angus Batista on 08-07-2022 Cholesterol in LDL [Mass/Vol] 142 mg/dL 0-130 [facility] Serum or plasma urea nitroge n measurement (mass/volume)Ordered By: Angus Batista on 08-07-2022 Urea nitrogen [Mass/Vol] 11 mg/dL 7-18 [facility] Thin prep Papanicolaou smear with manual screeningOrdered By: Angus Batista on 08-07-2022 Thin prep Papanicolaou smear with manual screening 21 U/L 15-37 [facility] Thin prep Papanicolaou smear with manual screening 5 5-15 [facility] Absolute lymphocyte countOrd ered By: Cuco Edge on 06-07-2022 Lymphocytes Auto (Unsp spec) [#/Vol] 0.59 10*3/uL 0.83-4.51 [facility] Basophil percentageOrdered B y: Cuco Edge on 06-07-2022 Basophils/100 WBC (Bld) 0.3 % 0-1 [facility] Bilirubin [Mass/Vol] 0.60 mg/dL 0.20-1.00 [facility] Comment on above: For patients on eltr ombopag therapy, use of Dimension [place] TBIL is not recommended. Chloride [Moles/Vol] 109 mmol/L 98-107 [facility] Eosinophils/100 WBC (Bld) 0.3 % 0-5 [facility] Glucose [Mass/Vol] 103 mg/dL 74-106 [facility] Comment on above: Fasting Glucose resu lt from 100 to 125 mg/dL suggests IMPAIRED HOMEOSTASIS per A.D.A. criteria. Neutrophils (Bld) [#/Vol] 5.6 10*3/uL 2.0-7.7 [facility] Neutrophils/100 WBC (Bld) 80.4 % 47-70 [facility] Potassium [Moles/Vol] 3.3 mmol/L 3.5-5.1 [facility] Protein [Mass/Vol] 7.0 g/dL 6.4-8.2 [facility] Sodium [Moles/Vol] 137 mmol/L 136-145 [facility] WBC (Bld) [#/Vol] 7.0 10*3/uL 4.4-11.0 [facility] Blood erythrocytes count (nu mber/volume)Ordered By: Cuco Edge on 06-07-2022 RBC (Bld) [#/Vol] 4.01 10*6/uL 4.2-5.4 [facility] Blood hemoglobin measurement (mass/volume)Ordered By: Cuco Edge on 06-07-2022 Hemoglobin (Bld) [Mass/Vol] 12.3 g/dL 12.0-15.0 [facility] Blood lymphocytes/100 leukoc ytesOrdered By: Cuco Edge on 06-07-2022 Lymphocytes/100 WBC (Bld) 8.4 % 19-41 [facility] Blood manual differential co mment interpretation (narrative result)Ordered By: Cuco Edge on 06-07-2022 Manual differential comment Cruz (Bld) [Interp] SCANNED [facility] Comment on above: LYMPHOPENIA Blood monocytes/100 leukocyt esOrdered By: Cuco Edge on 06-07-2022 Monocytes/100 WBC (Bld) 10.0 % 0-10 [facility] Blood platelet mean volumeOr dered By: Cuco Edge on 06-07-2022 Platelet mean volume (Bld) [Entitic vol] 10.2 fL 6.2-12.0 [facility] Determination of erythrocyte mean corpuscular volume (MCV)Ordered By: Cuco Edge on 06-07-2022 MCV (RBC) [Entitic vol] 90.8 fL 81-99 [facility] Direct bilirubinOrdered By: Cuco Edge on 06-07-2022 Bilirubin.direct [Mass/Vol] 0.22 mg/dL 0.00-0.30 [facility] Hematocrit Auto (Bld) [Volum e fraction]Ordered By: Cuco Edge on 06-07-2022 Hematocrit (Bld) [Volume fraction] 36.4 % 37-47 [facility] Laboratory - Chemistry and C hemistry - challengeOrdered By: Cuco Edge on 06-07-2022 ALP [Catalytic activity/Vol] 55 U/L 45-117 [facility] ALT [Catalytic activity/Vol] 52 U/L 13-56 [facility] CO2 [Moles/Vol] 23.0 mmol/L 21.0-32.0 [facility] Globulin (S) [Mass/Vol] 3.4 g/dL 2.2-4.2 [facility] Lipase [Catalytic activity/Vol] 28 U/L 13-75 [facility] Comment on above: Please note:LIPASE r evised reference range effective 22. New Lipase methodology. Expected to produce lower values than the previous assay method. NEW Reference Range: 13 - 75 U/L Magnesium [Mass/Vol] 1.4 mg/dL 1.6-2.6 [facility] Urea nitrogen/Creatinine [Mass ratio] 11.1 mg/mg 10-20 [facility] Laboratory - Hematology and Cell countsOrdered By: Cuco Edge on 06-07-2022 Erythrocyte distribution width (RBC) [Entitic vol] 42.0 fL 35.1-43.9 [facility] Erythrocyte distribution width (RBC) [Ratio] 12.8 % 11.6-14.6 [facility] Immature granulocytes/100 WBC (Bld) 0.600 % 0.0-0.9 [facility] Comment on above: IG% - Immature Granu locytes (promyelocytes, myelocytes and metamyelocytes) > 1% indicates that a LEFT SHIFT is Present. MCH (RBC) [Entitic mass] 30.7 pg 27.0-32.0 [facility] Nucleated RBC/100 WBC (Bld) [Ratio] 0 % 0-5 [facility] MCHC Auto (RBC) [Mass/Vol]Or dered By: Cuco Edge on 06-07-2022 MCHC (RBC) [Mass/Vol] 33.8 g/dL 32-36 [facility] No Panel InformationOrdered By: Cuco Edge on 06-07-2022 Estimated Creatinine Clearance Calc 77.01 ml/min [facility] Estimated GFR (MDRD) Amer 90 mL/min >60 [facility] Comment on above: GFR Calc Estimated GFR (MDRD) Non-Af Amer 75 mL/min >60 [facility] Comment on above: Non- GFR Calc Platelets bldOrdered By: Hiram Edge on 06-07-2022 Platelets (Bld) [#/Vol] 230 10*3/uL 150-450 [facility] Serum or plasma albumin milton urement (mass/volume)Ordered By: Cuco Edge on 06-07-2022 Albumin [Mass/Vol] 3.6 g/dL 3.2-5.0 [facility] Serum or plasma calcium milton urement (mass/volume)Ordered By: Cuco Edge on 06-07-2022 Calcium [Mass/Vol] 8.6 mg/dL 8.5-10.1 [facility] Serum or plasma creatinine m easurement (mass/volume)Ordered By: Cuco Edge on 06-07-2022 Creatinine [Mass/Vol] 0.90 mg/dL 0.55-1.02 [facility] Comment on above: The validity of the calculated GFR & GFRAA in patients over 70 years has not been determined. Clinical correlation is essential. Serum or plasma urea nitroge n measurement (mass/volume)Ordered By: Cuco Edge on 06-07-2022 Urea nitrogen [Mass/Vol] 10 mg/dL 7-18 [facility] Thin prep Papanicolaou smear with manual screeningOrdered By: Cuco Edge on 06-07-2022 Thin prep Papanicolaou smear with manual screening 53 U/L 15-37 [facility] Thin prep Papanicolaou smear with manual screening 5 5-15 [facility] Basophil percentageOrdered B y: Dr. Lomax on 05-31-2022 Testosterone [Mass/Vol] 30 ng/dL 8-60 [facility] Free testosterone percentage Ordered By: Dr. Lomax on 05-31-2022 Testosterone Free/Testosterone.total [Mass fraction] 0.80 % 0.50-2.80 [facility] No Panel InformationOrdered By: Dr. Lomax on 05-31-2022 Dehydroepiandrosterone Sulfate 260.0 ug/dL 57.3-279.2 [facility] Comment on above: Performed at: [address] [id number] Director: Flex Chavez PhD, Phone: [phone] at: [facility] [id number] Director: Aric Marley MD, Phone: [phone] Thyroid Stimulating Hormone (TSH) 1.58 uIU/mL 0.358-3.74 [facility] Serum or plasma estradiol (E 2) measurement (mass/volume)Ordered By: Dr. Lomax on 05-31-2022 E2 [Mass/Vol] 363.4 pg/mL [facility] Comment on above: NORMAL REFERENCE RAN GES FEMALE FOLLICULAR 21.4 - 164.8 pg/mL MID-CYCLE PEAK 49.9 - 367.2 pg/mL LUTEAL 40.2 - 259.0 pg/mL POST-MENOPAUSAL ON MHT <11.0 - 462.1 pg/mL NOT ON MHT <11.0 - 58.3 pg/mL MALE <11.0 - 52.5 pg/mL NOTE:[employer] HAS CONFIRMED THE DRUG FULVETRANT (FASLODEX) MAY CAUSE FALSELY ELEVATED ESTRADIOL RESULTS WHEN USING THIS TEST METHOD. IF PATIENT IS TAKING FULVESTRANT AN ALTERNATIVE METHOD SHOULD BE USED TO DETERMINE ESTRADIOL CONCENTRATION. Serum or plasma testosterone free measurement (mass/volume)Ordered By: Dr. Lomax on 05-31-2022 Testosterone Free [Mass/Vol] 0.24 ng/dL 0.10-0.85 [facility] Culture, urineOrdered By: Sudha Batista on 03-01-2022 Bacteria identified Cx Nom (U) Escherichia coli [facility] Basophil percentageOrdered B y: Angus Batista on 02-27-2022 Basophil percentage 0-5 SEEN /hpf 0-5 [facility] Bilirubin Test strip Ql (U)O rdered By: Angus Batista on 02-27-2022 Bilirubin Ql (U) Negative Negative [facility] Ketones Test strip Ql (U)Ord ered By: Angus Batista on 02-27-2022 Ketones Ql (U) Negative Negative [facility] Mucus LM Ql (Urine sed)Order ed By: Angus Batista on 02-27-2022 Mucus Ql (Urine sed) 0 SEEN /hpf [facility] Nitrite Test strip Ql (U)Ord ered By: Angus Batista on 02-27-2022 Nitrite Ql (U) Negative Negative [facility] Protein Test strip Ql (U)Ord ered By: Angus Batista on 02-27-2022 Protein Ql (U) 15 mg/dl Negative [facility] Squamous epithelial cells de tection in urine sediment by light microscopyOrdered By: Angus Batista on 02-27-2022 Epithelial cells.squamous LM Ql (Urine sed) 5-10 SEEN /hpf 5-10 [facility] Urine blood detectionOrdered By: Angus Batista on 02-27-2022 RBC Ql (U) 50 /ul Negative [facility] RBC Ql (U) 0-5 SEEN /hpf 0-5 [facility] Urine clarityOrdered By: Janae Batista on 02-27-2022 Clarity (U) Sl. Cloudy Clear [facility] Urine color determinationOrd ered By: Angus Batista on 02-27-2022 Color (U) Yellow Yellow [facility] Urine glucose detectionOrder ed By: Angus Batista on 02-27-2022 Glucose Ql (U) Normal mg/dl Normal [facility] Urine leukocyte esterase det ection by dipstickOrdered By: Angus Batista on 02-27-2022 Leukocyte esterase Test strip Ql (U) 25 /ul Negative [facility] Urine pHOrdered By: Angus Khalil er on 02-27-2022 pH (U) 5.0 [pH] 5.0 - 8.0 [facility] Urine sediment bacteria coun t by microscopy (number/high power field)Ordered By: Angus Batista on 02-27-2022 Bacteria LM.HPF (Urine sed) [#/Area] 2 /[HPF] None Seen [facility] Urine specific gravity measu rementOrdered By: Angus Batista on 02-27-2022 Specific gravity (U) [Rel density] 1.020 1.002-1.03 0 [facility] Urobilinogen Auto test strip Ql (U)Ordered By: Angus Batista on 02-27-2022 Urobilinogen Ql (U) Normal mg/dl Normal [facility] Absolute lymphocyte countOrd ered By: ED PROVIDER on 02-13-2022 Lymphocytes Auto (Unsp spec) [#/Vol] 1.47 10*3/uL 0.83-4.51 [facility] Basophil percentageOrdered B y: ED PROVIDER on 02-13-2022 Basophils/100 WBC (Bld) 0.6 % 0-1 [facility] Chloride [Moles/Vol] 108 mmol/L 98-107 [facility] Eosinophils/100 WBC (Bld) 2.6 % 0-5 [facility] Glucose [Mass/Vol] 97 mg/dL 74-106 [facility] Neutrophils (Bld) [#/Vol] 3.9 10*3/uL 2.0-7.7 [facility] Neutrophils/100 WBC (Bld) 60.4 % 47-70 [facility] Potassium [Moles/Vol] 3.4 mmol/L 3.5-5.1 [facility] Sodium [Moles/Vol] 141 mmol/L 136-145 [facility] WBC (Bld) [#/Vol] 6.5 10*3/uL 4.4-11.0 [facility] Blood erythrocytes count (nu mber/volume)Ordered By: ED PROVIDER on 02-13-2022 RBC (Bld) [#/Vol] 4.00 10*6/uL 4.2-5.4 [facility] Blood hemoglobin measurement (mass/volume)Ordered By: ED PROVIDER on 02-13-2022 Hemoglobin (Bld) [Mass/Vol] 12.4 g/dL 12.0-15.0 [facility] Blood lymphocytes/100 leukoc ytesOrdered By: ED PROVIDER on 02-13-2022 Lymphocytes/100 WBC (Bld) 22.5 % 19-41 [facility] Blood monocytes/100 leukocyt esOrdered By: ED PROVIDER on 02-13-2022 Monocytes/100 WBC (Bld) 13.7 % 0-10 [facility] Blood platelet mean volumeOr dered By: ED PROVIDER on 02-13-2022 Platelet mean volume (Bld) [Entitic vol] 9.9 fL 6.2-12.0 [facility] Determination of erythrocyte mean corpuscular volume (MCV)Ordered By: ED PROVIDER on 02-13-2022 MCV (RBC) [Entitic vol] 93.0 fL 81-99 [facility] Hematocrit Auto (Bld) [Volum e fraction]Ordered By: ED PROVIDER on 02-13-2022 Hematocrit (Bld) [Volume fraction] 37.2 % 37-47 [facility] Laboratory - Chemistry and C hemistry - challengeOrdered By: ED PROVIDER on 02-13-2022 CO2 [Moles/Vol] 27.0 mmol/L 21.0-32.0 [facility] Urea nitrogen/Creatinine [Mass ratio] 9.8 mg/mg 10-20 [facility] Laboratory - Hematology and Cell countsOrdered By: ED PROVIDER on 02-13-2022 Erythrocyte distribution width (RBC) [Entitic vol] 44.0 fL 35.1-43.9 [facility] Erythrocyte distribution width (RBC) [Ratio] 12.9 % 11.6-14.6 [facility] Immature granulocytes/100 WBC (Bld) 0.200 % 0.0-0.9 [facility] Comment on above: IG% - Immature Granu locytes (promyelocytes, myelocytes and metamyelocytes) > 1% indicates that a LEFT SHIFT is Present. MCH (RBC) [Entitic mass] 31.0 pg 27.0-32.0 [facility] Nucleated RBC/100 WBC (Bld) [Ratio] 0 % 0-5 [facility] MCHC Auto (RBC) [Mass/Vol]Or dered By: ED PROVIDER on 02-13-2022 MCHC (RBC) [Mass/Vol] 33.3 g/dL 32-36 [facility] No Panel InformationOrdered By: ED PROVIDER on 02-13-2022 Estimated Creatinine Clearance Calc 85.57 ml/min [facility] Estimated GFR (MDRD) Amer 101 mL/min >60 [facility] Comment on above: GFR Calc Estimated GFR (MDRD) Non-Af Amer 84 mL/min >60 [facility] Comment on above: Non- GFR Calc No Panel InformationOrdered By: Dr. Shin on 02-13-2022 Troponin I High Sensitivity 8 pg/mL 3.0-54.0 [facility] Comment on above: Please Note: New Maryjo t Units and Gender Specific Reference Ranges. For more information see Policy Stat Procedure [place] High Sensitivity Troponin (TNIH) and attachments. Platelets bldOrdered By: ED PROVIDER on 02-13-2022 Platelets (Bld) [#/Vol] 212 10*3/uL 150-450 [facility] Serum or plasma calcium milton urement (mass/volume)Ordered By: ED PROVIDER on 02-13-2022 Calcium [Mass/Vol] 9.0 mg/dL 8.5-10.1 [facility] Serum or plasma creatinine m easurement (mass/volume)Ordered By: ED PROVIDER on 02-13-2022 Creatinine [Mass/Vol] 0.81 mg/dL 0.55-1.02 [facility] Comment on above: The validity of the calculated GFR & GFRAA in patients over 70 years has not been determined. Clinical correlation is essential. Serum or plasma urea nitroge n measurement (mass/volume)Ordered By: ED PROVIDER on 02-13-2022 Urea nitrogen [Mass/Vol] 8 mg/dL 7-18 [facility] Thin prep Papanicolaou smear with manual screeningOrdered By: ED PROVIDER on 02-13-2022 Thin prep Papanicolaou smear with manual screening 6 5-15 [facility] Culture, urineOrdered By: Sudha Batista on 11-18-2021 Bacteria identified Cx Nom (U) Positive [facility] Basophil percentageOrdered B y: Angus Batista on 11-16-2021 Basophil percentage 0 SEEN /hpf 0-5 [facility] Bilirubin Test strip Ql (U)O rdered By: Angus Batista on 11-16-2021 Bilirubin Ql (U) Negative Negative [facility] Ketones Test strip Ql (U)Ord ered By: Angus Batista on 11-16-2021 Ketones Ql (U) Negative Negative [facility] Mucus LM Ql (Urine sed)Order ed By: Angus Batista on 11-16-2021 Mucus Ql (Urine sed) 0 SEEN /hpf [facility] Nitrite Test strip Ql (U)Ord ered By: Angus Batista on 11-16-2021 Nitrite Ql (U) Negative Negative [facility] Protein Test strip Ql (U)Ord ered By: Angus Batista on 11-16-2021 Protein Ql (U) Negative Negative [facility] Squamous epithelial cells de tection in urine sediment by light microscopyOrdered By: Angus Batista on 11-16-2021 Epithelial cells.squamous LM Ql (Urine sed) 0 SEEN /hpf 5-10 [facility] Urine blood detectionOrdered By: Angus Batista on 11-16-2021 RBC Ql (U) Negative Negative [facility] RBC Ql (U) 0 SEEN /hpf 0-5 [facility] Urine clarityOrdered By: Janae Batista on 11-16-2021 Clarity (U) Clear Clear [facility] Urine color determinationOrd ered By: Angus Batista on 11-16-2021 Color (U) Yellow Yellow [facility] Urine glucose detectionOrder ed By: Angus Batista on 11-16-2021 Glucose Ql (U) Normal mg/dl Normal [facility] Urine leukocyte esterase det ection by dipstickOrdered By: Angus Batista on 11-16-2021 Leukocyte esterase Test strip Ql (U) Negative Negative [facility] Urine pHOrdered By: Angus Khalil er on 11-16-2021 pH (U) 6.5 [pH] 5.0 - 8.0 [facility] Urine sediment bacteria coun t by microscopy (number/high power field)Ordered By: Angus Batista on 11-16-2021 Bacteria LM.HPF (Urine sed) [#/Area] 0 /[HPF] None Seen [facility] Urine specific gravity measu rementOrdered By: Angus Batista on 11-16-2021 Specific gravity (U) [Rel density] 1.005 1.002-1.03 0 [facility] Urobilinogen Auto test strip Ql (U)Ordered By: Angus Batista on 11-16-2021 Urobilinogen Ql (U) Normal mg/dl Normal [facility] Absolute lymphocyte counton 10-20-2021 Lymphocytes Auto (Unsp spec) [#/Vol] 2.42 10*3/uL 0.83-4.51 [facility] Work Phone: Absolute reticulocyte counto n 10-20-2021 Reticulocytes (Bld) [#/Vol] 0.00 10*3/uL 0-5 [facility] Work Phone: Basophil percentageon 2021 Basophil percentage 3.8 mg/dL 2.5-4.9 [facility] Work Phone: Bilirubin [Mass/Vol] 0.40 mg/dL 0.20-1.00 [facility] Work Phone: Comment on above: For patients on eltr ombopag therapy, use of Dimension [place] TBIL is not recommended. Chloride [Moles/Vol] 106 mmol/L 98-107 [facility] Work Phone: Cholesterol [Mass/Vol] 185 mg/dL <200 [facility] Work Phone: Comment on above: <200 mg/dL Desirable 200-240 mg/dL Borderline >240 mg/dL High Risk Glucose [Mass/Vol] 89 mg/dL 74-106 [facility] Work Phone: Neutrophils (Bld) [#/Vol] 7.0 10*3/uL 2.0-7.7 [facility] Work Phone: Potassium [Moles/Vol] 4.5 mmol/L 3.5-5.1 [facility] Work Phone: Comment on above: Slight Hemolysis, Re sult may be falsely increased. Protein [Mass/Vol] 7.2 g/dL 6.4-8.2 [facility] Work Phone: Sodium [Moles/Vol] 139 mmol/L 136-145 [facility] Work Phone: Triglyceride [Mass/Vol] 77 mg/dL <199 [facility] Work Phone: Comment on above: The drugs N-Acetylcy steine and Metamizole may falsely depress this assay.Serum Triglycerides Reference Interval Normal <150 mg/dL Borderline high 150 - 199 mg/dL High 200 - 499 mg/dL Very High > or = 500 mg/dL WBC (Bld) [#/Vol] 10.5 10*3/uL 4.4-11.0 [facility] Work Phone: Bilirubin Test strip Ql (U)o n 10-20-2021 Bilirubin Ql (U) Negative Negative [facility] Work Phone: Blood erythrocytes count (nu mber/volume)on 10-20-2021 RBC (Bld) [#/Vol] 4.04 10*6/uL 4.2-5.4 [facility] Work Phone: Blood hemoglobin measurement (mass/volume)on 10-20-2021 Hemoglobin (Bld) [Mass/Vol] 12.6 g/dL 12.0-15.0 [facility] Work Phone: Blood platelet mean volumeon 10-20-2021 Platelet mean volume (Bld) [Entitic vol] 9.7 fL 6.2-12.0 [facility] Work Phone: Determination of erythrocyte mean corpuscular volume (MCV)on 10-20-2021 MCV (RBC) [Entitic vol] 91.6 fL 81-99 [facility] Work Phone: Direct bilirubinon Bilirubin.direct [Mass/Vol] 0.14 mg/dL 0.00-0.30 [facility] Work Phone: Hematocrit Auto (Bld) [Volum e fraction]on 10-20-2021 Hematocrit (Bld) [Volume fraction] 37.0 % 37-47 [facility] Work Phone: Ketones Test strip Ql (U)on 10-20-2021 Ketones Ql (U) Negative Negative [facility] Work Phone: Laboratory - Chemistry and C hemistry - challengeon 10-20-2021 ALP [Catalytic activity/Vol] 53 U/L 45-117 [facility] Work Phone: ALT [Catalytic activity/Vol] 38 U/L 13-56 [facility] Work Phone: Cholesterol.total/Jennifer sterol in HDL [Mass ratio] 2.80 {ratio} [facility] Work Phone: CO2 [Moles/Vol] 27.0 mmol/L 21.0-32.0 [facility] Work Phone: Globulin (S) [Mass/Vol] 3.6 g/dL 2.2-4.2 [facility] Work Phone: Urea nitrogen/Creatinine [Mass ratio] 21.0 mg/mg 10-20 [facility] Work Phone: Laboratory - Hematology and Cell countson 10-20-2021 Erythrocyte distribution width (RBC) [Entitic vol] 44.0 fL 35.1-43.9 [facility] Work Phone: Erythrocyte distribution width (RBC) [Ratio] 13.1 % 11.6-14.6 [facility] Work Phone: MCH (RBC) [Entitic mass] 31.2 pg 27.0-32.0 [facility] Work Phone: Nucleated RBC/100 WBC (Bld) [Ratio] 0 % 0-5 [facility] Work Phone: MCHC Auto (RBC) [Mass/Vol]on 10-20-2021 MCHC (RBC) [Mass/Vol] 34.1 g/dL 32-36 [facility] Work Phone: Nitrite Test strip Ql (U)on 10-20-2021 Nitrite Ql (U) Negative Negative [facility] Work Phone: No Panel Informationon 10-20 Estimated GFR (MDRD) Amer 85 mL/min >60 [facility] Work Phone: Comment on above: GFR Calc Estimated GFR (MDRD) Non-Af Amer 70 mL/min >60 [facility] Work Phone: Comment on above: Non- GFR Calc Platelets bldon 10-20-2021 Platelets (Bld) [#/Vol] 318 10*3/uL 150-450 [facility] Work Phone: Protein Test strip Ql (U)on 10-20-2021 Protein Ql (U) Negative Negative [facility] Work Phone: Segmented neutrophils/100 WB C Auto (Bld)on 10-20-2021 Segmented neutrophils/100 WBC (Bld) 66.2 % 47-70 [facility] Work Phone: Serum or plasma albumin milton urement (mass/volume)on 10-20-2021 Albumin [Mass/Vol] 3.6 g/dL 3.2-5.0 [facility] Work Phone: Serum or plasma albumin/glob ulin mass ratioon 10-20-2021 Albumin/Globulin [Mass ratio] 1.0 {ratio} 0.9-2.4 [facility] Work Phone: Serum or plasma calcium milton urement (mass/volume)on 10-20-2021 Calcium [Mass/Vol] 8.8 mg/dL 8.5-10.1 [facility] Work Phone: Serum or plasma cholesterol in HDL measurement (mass/volume)on 10-20-2021 Cholesterol in HDL [Mass/Vol] 65 mg/dL >40 [facility] Work Phone: Comment on above: The drugs N-Acetylcy steine and Metamizole may falsely depress this assay. Reference Range HDL <40 mg/dL Low HDL Cholesterol HDL >or= 60 mg/dL High HDL Cholesterol Serum or plasma cholesterol in VLDL measurement (mass/volume)on 10-20-2021 Cholesterol in VLDL [Mass/Vol] 15 mg/dL 5-40 [facility] Work Phone: Serum or plasma creatinine m easurement (mass/volume)on 10-20-2021 Creatinine [Mass/Vol] 0.95 mg/dL 0.55-1.02 [facility] Work Phone: Comment on above: The validity of the calculated GFR & GFRAA in patients over 70 years has not been determined. Clinical correlation is essential. Serum or plasma low density lipoprotein (LDL) cholesterol measurement (mass/volume)on 10-20-2021 Cholesterol in LDL [Mass/Vol] 105 mg/dL 0-130 [facility] Work Phone: Serum or plasma urea nitroge n measurement (mass/volume)on 10-20-2021 Urea nitrogen [Mass/Vol] 20 mg/dL 7-18 [facility] Work Phone: Serum or plasma uric acid me asurement (mass/volume)on 10-20-2021 Urate [Mass/Vol] 5.9 mg/dL 2.6-6.0 [facility] Work Phone: Comment on above: The drugs N-Acetylcy steine and Metamizole may falsely depress this assay. Thin prep Papanicolaou smear with manual screeningon 10-20-2021 Thin prep Papanicolaou smear with manual screening 30 U/L 15-37 [facility] Work Phone: Comment on above: Slight Hemolysis, Re sult may be falsely increased. Thin prep Papanicolaou smear with manual screening 6 5-15 [facility] Work Phone: Thin prep Papanicolaou smear with manual screening 262 U/L 84-246 [facility] Work Phone: Comment on above: Slight Hemolysis, Re sult may be falsely increased. Urine blood detectionon RBC Ql (U) 25 /ul Negative [facility] Work Phone: Urine clarityon 10-20-2021 Clarity (U) Clear Clear [facility] Work Phone: Urine color determinationon 10-20-2021 Color (U) Yellow Yellow [facility] Work Phone: Urine glucose detectionon Glucose Ql (U) Normal mg/dl Normal [facility] Work Phone: Urine leukocyte esterase det ection by dipstickon 10-20-2021 Leukocyte esterase Test strip Ql (U) Negative Negative [facility] Work Phone: Urine pHon 10-20-2021 pH (U) 5.0 [pH] 5.0 - 8.0 [facility] Work Phone: Urine specific gravity measu rementon 10-20-2021 Specific gravity (U) [Rel density] 1.025 1.002-1.03 0 [facility] Work Phone: Urobilinogen Auto test strip Ql (U)on 10-20-2021 Urobilinogen Ql (U) Normal mg/dl Normal [facility] Work Phone: Culture, urine Bacteria identified Cx Nom (U) Positive [facility] Work Phone: Vital Signs Date Time Vital Sign Value Performing Clinician Faci lity 10-26-2024 14:35-0400 Body height 165.1 cm Angus Batista [employer] Work Phone: 1(420)336-835749 [place] [address] 10-26-2024 14:35-0400 Body mass index (BMI) [Ratio] 33.6 kg/m2 Angus Batista [employer] Work Phone: 8(467)717-562477 [place] [address] 10-26-2024 14:35-0400 Body temperature 98.4 [degF] Angus Batista [employer] Work Phone: 2(091)758-578477 [place] [address] 10-26-2024 14:35-0400 Body weight 91.62 kg Angus Batista [employer] Work Phone: 5(259)157-111777 [place] [address] 10-26-2024 14:35-0400 Diastolic blood pressure 65 mm[Hg] Angus Batista [employer] Work Phone: 2(200)884-917577 [place] [address] 10-26-2024 14:35-0400 Heart rate 74 /min Angus Batista [employer] Work Phone: 7(705)868-046577 [place] [address] 10-26-2024 14:35-0400 Respiratory rate 15 /min Angus Batista [employer] Work Phone: 8(372)381-568277 [place] [address] 10-26-2024 14:35-0400 SaO2% (BldA) [Mass fraction] 99 % Angus Batista [employer] Work Phone: 0(190)507-548377 [place] [address] 10-26-2024 14:35-0400 Systolic blood pressure 115 mm[Hg] Angus Batista [employer] Work Phone: 0(286)070-184677 [place] [address] 09-07-2024 16:11-0400 Body temperature 98.2 [degF] Angus Batista [employer] Work Phone: 4(017)607-969777 [place] [address] 09-07-2024 16:11-0400 Diastolic blood pressure 72 mm[Hg] Angus Batista [employer] Work Phone: 5(733)296-337177 [place] [address] 09-07-2024 16:11-0400 Heart rate 67 /min Angus Batista [employer] Work Phone: 2(130)529-637777 [place] [address] 09-07-2024 16:11-0400 Respiratory rate 17 /min Angus Batista [employer] Work Phone: 1(188)831-176177 [place] [address] 09-07-2024 16:11-0400 SaO2% (BldA) [Mass fraction] 99 % Angus Batista [employer] Work Phone: 9(447)896-813977 [place] [address] 09-07-2024 16:11-0400 Systolic blood pressure 122 mm[Hg] Angus Batista [employer] Work Phone: 7(076)089-013877 [place] [address] 09-07-2024 11:16-0400 Body height 165.1 cm Angus Batista [employer] Work Phone: 9(907)390-646177 [place] [address] 09-07-2024 11:16-0400 Body mass index (BMI) [Ratio] 35.8 kg/m2 Angus Batista [employer] Work Phone: 5(361)237-082277 [place] [address] 09-07-2024 11:16-0400 Body weight 97.6 kg Angus Batista [employer] Work Phone: 1(222)736-326977 [place] [address] 06-14-2024 13:15-0400 Body height 165.1 cm Angus Batista [employer] Work Phone: 4(591)573-308477 [place] [address] 06-14-2024 13:15-0400 Body mass index (BMI) [Ratio] 38.6 kg/m2 Angus Batista [employer] Work Phone: 0(882)453-944377 [place] [address] 06-14-2024 13:15-0400 Body weight 105.23 kg Angus Batista [employer] Work Phone: 9(385)017-179877 [place] [address] 06-14-2024 13:15-0400 Diastolic blood pressure 83 mm[Hg] Angus Batista [employer] Work Phone: 4(867)931-750277 [place] [address] 06-14-2024 13:15-0400 Systolic blood pressure 118 mm[Hg] Angus Batista [employer] Work Phone: 5(543)632-887677 [place] [address] 04-09-2024 09:43-0500 Body height 165.1 cm Angus Batista [employer] Work Phone: 8(251)687-671177 [place] [address] 04-09-2024 09:38-0500 Body mass index (BMI) [Ratio] 42.7 kg/m2 Angus Batista [employer] Work Phone: 1(095)370-916477 [place] [address] 04-09-2024 09:38-0500 Body weight 116.57 kg Angus Batista [employer] Work Phone: 3(806)736-871677 [place] [address] 04-09-2024 09:38-0500 Diastolic blood pressure 85 mm[Hg] Angus Batista [employer] Work Phone: 8(463)631-957277 [place] [address] 04-09-2024 09:38-0500 Systolic blood pressure 133 mm[Hg] Angus Batista [employer] Work Phone: 6(727)853-970177 [place] [address] 03-29-2024 22:16-0500 Body temperature 98 [degF] Angus Batista [employer] Work Phone: 9(547)198-223277 [place] [address] 03-29-2024 22:16-0500 Diastolic blood pressure 92 mm[Hg] Angus Batista [employer] Work Phone: 3(977)037-951477 [place] [address] 03-29-2024 22:16-0500 Heart rate 89 /min Angus Batista [employer] Work Phone: 9(299)622-787877 [place] [address] 03-29-2024 22:16-0500 Respiratory rate 16 /min Angus Batista [employer] Work Phone: 1(239)591-661277 [place] [address] 03-29-2024 22:16-0500 SaO2% (BldA) [Mass fraction] 99 % Angus Batista [employer] Work Phone: 5(485)484-588977 [place] [address] 03-29-2024 22:16-0500 Systolic blood pressure 140 mm[Hg] Angus Batista [employer] Work Phone: 3(170)235-991777 [place] [address] 03-29-2024 19:00-0500 Body mass index (BMI) [Ratio] 43.2 kg/m2 Angus Batista [employer] Work Phone: 6(657)105-026777 [place] [address] 03-29-2024 19:00-0500 Body weight 117.88 kg Angus Batista [employer] Work Phone: 7(223)375-518677 [place] [address] 06-11-2023 08:39-0400 Body temperature 98.2 [degF] [facility] Work Phone: 0(326)225-344477 [place] [address] 06-11-2023 08:39-0400 Diastolic blood pressure 79 mm[Hg] [facility] Work Phone: 0(037)159-297177 [place] [address] 06-11-2023 08:39-0400 Heart rate 56 /min [facility] Work Phone: 1(789)313-665377 [place] [address] 06-11-2023 08:39-0400 Respiratory rate 18 /min [facility] Work Phone: 3(529)144-905377 [place] [address] 06-11-2023 08:39-0400 SaO2% (BldA) [Mass fraction] 94 % [facility] Work Phone: 0(511)875-472277 [place] [address] 06-11-2023 08:39-0400 Systolic blood pressure 116 mm[Hg] [facility] Work Phone: 5(689)313-537177 [place] [address] 06-11-2023 07:01-0400 Body height 165.1 cm [facility] Work Phone: 2(240)923-189577 [place] [address] 06-11-2023 07:01-0400 Body mass index (BMI) [Ratio] 43.9 kg/m2 [facility] Work Phone: 5(400)310-198377 [place] [address] 06-11-2023 07:01-0400 Body weight 119.8 kg [facility] Work Phone: 8(482)264-272677 [place] [address] 06-06-2023 14:26-0400 Body mass index (BMI) [Ratio] 44.1 kg/m2 [facility] Work Phone: 5(009)362-424977 [place] [address] 06-06-2023 14:26-0400 Body weight 120.42 kg [facility] Work Phone: 5(423)309-862777 [place] [address] 06-06-2023 14:26-0400 Diastolic blood pressure 78 mm[Hg] [facility] Work Phone: 2(635)644-770177 [place] [address] 06-06-2023 14:26-0400 Systolic blood pressure 124 mm[Hg] [facility] Work Phone: 5(746)264-820677 [place] [address] 05-05-2023 23:55-0400 Body temperature 98 [degF] [facility] Work Phone: 4(159)509-066977 [place] [address] 05-05-2023 23:55-0400 Diastolic blood pressure 62 mm[Hg] [facility] Work Phone: 1(845)106-018877 [place] [address] 05-05-2023 23:55-0400 Heart rate 74 /min [facility] Work Phone: 4(463)046-380177 [place] [address] 05-05-2023 23:55-0400 Respiratory rate 14 /min [facility] Work Phone: 7(643)109-844577 [place] [address] 05-05-2023 23:55-0400 SaO2% (BldA) [Mass fraction] 98 % [facility] Work Phone: 2(991)732-248277 [place] [address] 05-05-2023 23:55-0400 Systolic blood pressure 129 mm[Hg] [facility] Work Phone: 6(948)441-728977 [place] [address] 05-05-2023 21:58-0400 Body height 165.1 cm [facility] Work Phone: 3(454)683-276877 [place] [address] 05-05-2023 21:58-0400 Body mass index (BMI) [Ratio] 44.9 kg/m2 [facility] Work Phone: 0(946)907-414177 [place] [address] 05-05-2023 21:58-0400 Body weight 122.3 kg [facility] Work Phone: 5(563)564-836677 [place] [address] 03-27-2023 10:59-0500 Body mass index (BMI) [Ratio] 43.4 kg/m2 [facility] Work Phone: 8(043)628-446977 [place] [address] 03-27-2023 10:59-0500 Body weight 118.61 kg [facility] Work Phone: 5(192)040-158277 [place] [address] 03-27-2023 10:59-0500 Diastolic blood pressure 84 mm[Hg] [facility] Work Phone: 0(288)949-596277 [place] [address] 03-27-2023 10:59-0500 Systolic blood pressure 128 mm[Hg] [facility] Work Phone: 1(046)694-122677 [place] [address] 02-24-2023 13:41-0500 Body height 165.[address] Grisel Solares Work Phone: [facility] 02-24-2023 13:41-0500 Body mass index (BMI) [Ratio] 43 kg/m2 Dr. Grisel Solares Work Phone: [facility] 02-24-2023 13:41-0500 Body weight 117.[address] Grisel Solares Work Phone: [facility] 02-24-2023 13:41-0500 Diastolic blood pressure 79 mm[Hg] Dr. Grisel Solares Work Phone: [facility] 02-24-2023 13:41-0500 Systolic blood pressure 128 mm[Hg] Dr. Grisel Solares Work Phone: [facility] 12-18-2022 09:39-0400 Body temperature 97.3 [degF] Dr. Grisel Solares Work Phone: [facility] 12-18-2022 09:39-0400 Diastolic blood pressure 78 mm[Hg] Dr. Grisel Solares Work Phone: [facility] 12-18-2022 09:39-0400 Heart rate 46 /min Dr. Grisel Solares Work Phone: [facility] 12-18-2022 09:39-0400 Respiratory rate 16 /min Dr. Grisel Solares Work Phone: [facility] 12-18-2022 09:39-0400 SaO2% (BldA) [Mass fraction] 99 % Dr. Grisel Solares Work Phone: [facility] 12-18-2022 09:39-0400 Systolic blood pressure 116 mm[Hg] Dr. Grisel Solares Work Phone: [facility] 12-18-2022 07:28-0400 Body height 165.[address] Grisel Solares Work Phone: [facility] 12-18-2022 07:28-0400 Body mass index (BMI) [Ratio] 42.5 kg/m2 Dr. Grisel Solares Work Phone: [facility] 12-18-2022 07:28-0400 Body weight [address] Grisel Solares Work Phone: [facility] 11-25-2022 11:30-0400 Body height 165.[address] Grisel Solares Work Phone: [facility] 11-25-2022 11:30-0400 Body mass index (BMI) [Ratio] 41.8 kg/m2 Dr. Grisel Solares Work Phone: [facility] 11-25-2022 11:30-0400 Body temperature 98.2 [degF] Dr. Grisel Solares Work Phone: [facility] 11-25-2022 11:30-0400 Body weight 114.[address] Grisel Solares Work Phone: [facility] 11-25-2022 11:30-0400 Diastolic blood pressure 82 mm[Hg] Dr. Grisel Solares Work Phone: [facility] 11-25-2022 11:30-0400 Heart rate 72 /min Dr. Grisel Solares Work Phone: [facility] 11-25-2022 11:30-0400 Respiratory rate 17 /min Dr. Grisel Solares Work Phone: [facility] 11-25-2022 11:30-0400 SaO2% (BldA) [Mass fraction] 97 % Dr. Grisel Sloares Work Phone: [facility] 11-25-2022 11:30-0400 Systolic blood pressure 112 mm[Hg] Dr. Grisel Solares Work Phone: [facility] 09-29-2022 21:11-0400 Body height 165.[address] Grisel Solares Work Phone: [facility] 09-29-2022 21:11-0400 Body mass index (BMI) [Ratio] 42.5 kg/m2 Dr. Grisel Solares Work Phone: [facility] 09-29-2022 21:11-0400 Body temperature 96.8 [degF] Dr. Grisel Solares Work Phone: [facility] 09-29-2022 21:11-0400 Body weight [address] Grisel Solares Work Phone: [facility] 09-29-2022 21:11-0400 Diastolic blood pressure 71 mm[Hg] Dr. Grisel Solares Work Phone: [facility] 09-29-2022 21:11-0400 Heart rate 53 /min Dr. Grisel Solares Work Phone: [facility] 09-29-2022 21:11-0400 Respiratory rate 17 /min Dr. Grisel Solares Work Phone: [facility] 09-29-2022 21:11-0400 SaO2% (BldA) [Mass fraction] 100 % Dr. Grisel Solares Work Phone: [facility] 09-29-2022 21:11-0400 Systolic blood pressure 155 mm[Hg] Dr. Grisel Solares Work Phone: [facility] 08-07-2022 10:06-0400 Body height 165.[address] Grisel Solares Work Phone: [facility] 08-07-2022 10:06-0400 Body mass index (BMI) [Ratio] 40.9 kg/m2 Dr. Grisel Solares Work Phone: [facility] 08-07-2022 10:06-0400 Body temperature 98 [degF] Dr. Grisel Solares Work Phone: [facility] 08-07-2022 10:06-0400 Body weight 111.[address] Grisel Solares Work Phone: [facility] 08-07-2022 10:06-0400 Diastolic blood pressure 80 mm[Hg] Dr. Grisel Solares Work Phone: [facility] 08-07-2022 10:06-0400 Heart rate 56 /min Dr. Grisel Solares Work Phone: [facility] 08-07-2022 10:06-0400 Respiratory rate 14 /min Dr. Grisel Solares Work Phone: [facility] 08-07-2022 10:06-0400 SaO2% (BldA) [Mass fraction] 99 % Dr. Grisel Solares Work Phone: [facility] 08-07-2022 10:06-0400 Systolic blood pressure 132 mm[Hg] Dr. Grisel Solares Work Phone: [facility] 06-07-2022 22:14-0400 Body height 165.[address] Grisel Solares Work Phone: [facility] 06-07-2022 22:14-0400 Body mass index (BMI) [Ratio] 41.3 kg/m2 Dr. Grisel Solares Work Phone: [facility] 06-07-2022 22:14-0400 Body temperature 98.7 [degF] Dr. Grisel Solares Work Phone: [facility] 06-07-2022 22:14-0400 Body weight 112.[address] Grisel Solares Work Phone: [facility] 06-07-2022 22:14-0400 Diastolic blood pressure 103 mm[Hg] Dr. Grisel Solares Work Phone: [facility] 06-07-2022 22:14-0400 Heart rate 114 /min Dr. Grisel Solares Work Phone: [facility] 06-07-2022 22:14-0400 Respiratory rate 18 /min Dr. Grisel Solares Work Phone: [facility] 06-07-2022 22:14-0400 SaO2% (BldA) [Mass fraction] 99 % Dr. Grisel Solares Work Phone: [facility] 06-07-2022 22:14-0400 Systolic blood pressure 142 mm[Hg] Dr. Grisel Solares Work Phone: [facility] 03-28-2022 15:03-0500 Body mass index (BMI) [Ratio] 42.3 kg/m2 Dr. Grisel Solares Work Phone: [facility] 03-28-2022 15:03-0500 Body temperature 98.2 [degF] Dr. Grisel Solares Work Phone: [facility] 03-28-2022 15:03-0500 Body weight 115.[address] Grisel Solares Work Phone: [facility] 03-28-2022 15:03-0500 Diastolic blood pressure 78 mm[Hg] Dr. Grisel Solares Work Phone: [facility] 03-28-2022 15:03-0500 Heart rate 55 /min Dr. Grisel Solares Work Phone: [facility] 03-28-2022 15:03-0500 Respiratory rate 16 /min Dr. Grisel Solares Work Phone: [facility] 03-28-2022 15:03-0500 SaO2% (BldA) [Mass fraction] 99 % Dr. Grisel Solares Work Phone: [facility] 03-28-2022 15:03-0500 Systolic blood pressure 130 mm[Hg] Dr. Grisel Solares Work Phone: [facility] 02-27-2022 10:10-0500 Body height 165.[address] Grisel Solares Work Phone: [facility] 02-27-2022 10:10-0500 Body mass index (BMI) [Ratio] 42.4 kg/m2 Dr. Grisel Solares Work Phone: [facility] 02-27-2022 10:10-0500 Body temperature 96.1 [degF] Dr. Grisel Solares Work Phone: [facility] 02-27-2022 10:10-0500 Body weight 115.[address] Grisel Solares Work Phone: [facility] 02-27-2022 10:10-0500 Diastolic blood pressure 82 mm[Hg] Dr. Grisel Solares Work Phone: [facility] 02-27-2022 10:10-0500 Heart rate 69 /min Dr. Grisel Solares Work Phone: [facility] 02-27-2022 10:10-0500 Respiratory rate 18 /min Dr. Grisel Solares Work Phone: [facility] 02-27-2022 10:10-0500 SaO2% (BldA) [Mass fraction] 96 % Dr. Grisel Solares Work Phone: [facility] 02-27-2022 10:10-0500 Systolic blood pressure 112 mm[Hg] Dr. Grisel Solares Work Phone: [facility] 02-13-2022 18:28-0500 SaO2% (BldA) [Mass fraction] 99 % Dr. Grisel Solares Work Phone: [facility] 02-13-2022 17:54-0500 Diastolic blood pressure 92 mm[Hg] Dr. Grisel Solares Work Phone: [facility] 02-13-2022 17:54-0500 Heart rate 60 /min Dr. Grisel Solares Work Phone: [facility] 02-13-2022 17:54-0500 Systolic blood pressure 147 mm[Hg] Dr. Grisel Solares Work Phone: [facility] 02-13-2022 13:32-0500 Body height 165.[address] Grisel Solares Work Phone: [facility] Work Phone: 02-13-2022 13:32-0500 Body mass index (BMI) [Ratio] 41.5 kg/m2 Dr. Grisel Solares Work Phone: [facility] 02-13-2022 13:32-0500 Body temperature 97.4 [degF] Dr. Grisel Solares Work Phone: [facility] 02-13-2022 13:32-0500 Body weight 113.[address] Grisel Solares Work Phone: [facility] 02-13-2022 13:32-0500 Respiratory rate 18 /min Dr. Grisel Solares Work Phone: [facility] 11-16-2021 10:48-0400 Body mass index (BMI) [Ratio] 38.9 kg/m2 Dr. Grisel Solares Work Phone: [facility] 11-16-2021 10:48-0400 Body temperature 96.7 [degF] Dr. Grisel Solares Work Phone: [facility] 11-16-2021 10:48-0400 Body weight 116.[address] Grisel Solares Work Phone: [facility] 11-16-2021 10:48-0400 Diastolic blood pressure 68 mm[Hg] Dr. Grisel Solares Work Phone: [facility] 11-16-2021 10:48-0400 Heart rate 44 /min Dr. Grisel Solares Work Phone: [facility] 11-16-2021 10:48-0400 Respiratory rate 16 /min Dr. Grisel Solares Work Phone: [facility] 11-16-2021 10:48-0400 SaO2% (BldA) [Mass fraction] 98 % Dr. Grisel Solares Work Phone: [facility] 11-16-2021 10:48-0400 Systolic blood pressure 104 mm[Hg] Dr. Grisel Solares Work Phone: [facility] Encounters Encounter Date Encounter Type Care Provider Facility Start: 12-03-2024 ambulatory [facility] Facility :[facility] Start: 11-29-2024 End: 11-29-2024 ambulatory [facility] Start: 10-26-2024 End: 10-26-[address] Harry Fernandes MD -[facility] Work Phone: Start: 10-26-2024 End: 10-26-2024 ambulatory Angus Dunnder [employer]NACE OPERATOR-C Work Phone: -[facility] Start: 10-21-2024 Registered [facility] -Laboratory Work Phone: Start: 10-21-2024 ambulatory Angus Batista [facility] Facility :[facility] Start: 09-17-2024 End: 09-17-2024 ambulatory Angus Dunnder METAL FURNACE OPERATOR-C Work Phone: -Laboratory [facility] Start: 09-17-2024 End: 09-17-2024 Patient encounter procedure Ledy Foley METAL FURNACE OPERATOR-C -Laboratory [facility] Start: 09-17-2024 End: 09-17-2024 ambulatory Angus Batista [facility] Facility:[facility] Start: 09-07-2024 End: 09-07-2024 Emergency department patient visit Angus Dunnder METAL FURNACE OPERATOR-C Work Phone: -Emergency Department Work Phone: Start: 07-07-2024 ambulatory Angus Batista [facility] Start: 07-02-2024 End: 07-02-2024 ambulatory Angus Batista METAL FURNACE OPERATOR-C Work Phone: [facility] Work Phone: Start: 07-02-2024 End: 07-02-2024 Patient encounter procedure Ledy Foley METAL FURNACE OPERATOR-C -Laboratory Work Phone: Start: 07-02-2024 End: 07-02-2024 ambulatory Angus Batista [facility] Facility:[facility] Start: 06-17-2024 End: 06-17-2024 ambulatory Angus Batista METAL FURNACE OPERATOR-C Work Phone: [facility] Work Phone: Start: 06-17-2024 End: 06-17-[address] Carlos Martins MD -[facility] Work Phone: Start: 06-17-2024 End: 06-17-2024 ambulatory Carlos Martins Facility:[facility] Start: 06-14-2024 Encounter for gynecological examination (general) (routine) without abnormal findings [facility] Start: 06-14-2024 End: 06-14-[address] Ana Maria Walker DO [facility] Women[facility] [place] Work Phone: Start: 06-14-2024 End: 06-14-[address] Ana Maria Walker DO [facility] Start: 06-14-2024 End: 06-14-2024 ambulatory Ana Maria Walker Facility:[facility] Start: 06-08-2024 ambulatory Ashkan Ortiz Facility :[facility] Start: 06-08-2024 Non-patient / Non-visit Dr. Ramona robledo MD -[facility] Start: 06-08-2024 End: 06-08-2024 ambulatory Angus Batista [employer]NACE OPERATOR-C Work Phone: [facility] Work Phone: Start: 06-08-2024 End: 06-08-[address] Ashkan Ortiz MD -Pulmonary Services/Neurology Work Phone: Start: 06-08-2024 End: 06-08-2024 ambulatory Ashkan Ortiz Facility:[facility] Start: 05-11-2024 End: 05-11-[address] Ashkan Ortiz MD -[facility] Work Phone: Start: 05-11-2024 End: 05-11-2024 ambulatory Angus Batista METAL FURNACE OPERATOR-C Work Phone: [facility] Work Phone: Start: 05-11-2024 End: 05-11-2024 Discharged Recurring Zebulun Beam METAL FURNACE OPERATOR-C -Physical Therapy Work Phone: Start: 05-11-2024 Registered Recurring Zebulun Beam METAL FURNACE OPERATOR -C -Physical Therapy Work Phone: Start: 05-11-2024 End: 05-11-2024 ambulatory Ashkan Ortiz Facility:[facility] Start: 04-30-2024 End: 04-30-2024 ambulatory Angus Batista [employer] FURNACE OPERATOR-C Work Phone: [facility] Work Phone: Start: 04-30-2024 End: 04-30-2024 Patient encounter procedure Alem Gross CNM -Outpatient Breast Imaging Work Phone: Start: 04-30-2024 End: 04-30-2024 ambulatory Angus Batista [facility] Facility:[facility] Start: 04-09-2024 End: 04-09-2024 Patient encounter procedure Alem Gross CNM -[facility] Work Phone: Start: 04-09-2024 End: 04-09-2024 ambulatory Angus Batista [facility] Start: 03-29-2024 End: 03-29-2024 Emergency department patient visit Dr. Richi Saucedo DO -Emergency Department Work Phone: Start: 02-10-2024 End: 02-10-[address] Ashkan Ortiz MD -[facility] Work Phone: Start: 02-10-2024 End: 02-10-2024 ambulatory Angus Batista [facility] Facility:[facility] Start: 12-30-2023 End: 12-30-2023 ambulatory Angus Batista [facility] Facility:[facility] Start: 12-09-2023 End: 12-09-2023 ambulatory Angus Batista [facility] Facility:[facility] Start: 12-04-2023 ambulatory [facility] Facility:[facility] Start: 11-06-2023 End: 11-06-2023 [facility] Start: 11-06-2023 End: 11-06-2023 Subsequent hospital visit by physician [address] Radiology Start: 09-10-2023 Telephone encounter Osbaldo [facility] Rad[facility] Comment on above: Appointment Start: 06-19-2023 End: 06-19-2023 ambulatory [facility] Work Phone: [facility] Work Phone: Start: 06-19-2023 End: 06-19-2023 Patient encounter procedure [facility] Work Phone: [facility]-Laboratory Work Phone: Start: 06-19-2023 End: 06-19-2023 Patient encounter procedure [facility] Work Phone: [facility] Work Phone: Start: 06-16-2023 End: 06-16-2023 Patient encounter procedure [facility] Work Phone: [facility] Work Phone: Start: 06-11-2023 Non-patient / Non-visit [facility] Work Phone: [facility] Start: 06-11-2023 End: 06-11-2023 Admission to same day surgery center [facility] Work Phone: [facility]-Surgical Day Care Start: 06-11-2023 End: 06-11-2023 ambulatory [facility] Work Phone: [facility] Work Phone: Start: 06-06-2023 End: 06-06-2023 Patient encounter procedure [facility] Work Phone: [facility] Work Phone: Start: 05-27-2023 End: 05-27-2023 Patient encounter procedure [facility] Work Phone: [facility] Work Phone: Start: 05-05-2023 End: 05-05-2023 Emergency department patient visit [facility] Work Phone: [facility]-Emergency Department Work Phone: Start: 03-27-2023 End: 03-27-2023 Patient encounter procedure [facility] Work Phone: [facility] Work [facility]: Start: 02-27-2023 End: 02-27-[address] Grisel Solares Work Phone: [facility] Work Phone: Start: 02-27-2023 End: 02-27-[address] Grisel Solares Work Phone: [facility]-Outpatient Breast Imaging Work Phone: Start: 02-25-2023 End: 02-25-[address] Grisel Solares Work Phone: [facility] Work Phone: Start: 02-25-2023 End: 02-25-[address] Grisel Solares Work Phone: [facility]-Laboratory, [facility] Start: 02-24-2023 End: 02-24-[address] Grisel Solares Work Phone: [facility] Women[facility] [place] Work Phone: Start: 02-18-2023 End: 02-18-[address] Grisel Solares Work Phone: [facility] Work Phone: Start: 02-18-2023 End: 02-18-[address] Grisel Solares Work Phone: [facility]-Laboratory Work Phone: Start: 02-04-2023 End: 02-04-[address] Grisel Solares Work Phone: [facility] Work Phone: Start: 12-31-2022 End: 12-31-[address] Grisel Solares Work Phone: [facility] Work Phone: Start: 12-20-2022 End: 12-20-[address] Grisel Solares Work Phone: [facility] Work Phone: Start: 12-18-2022 Non-patient / Non-visit Dr. Florin Solares Work Phone: [facility] Start: 12-18-2022 End: 12-18-2022 Admission to same day surgery center Dr. Grisel Solares Work Phone: [facility]-Surgical Day Care Start: 12-18-2022 End: 12-18-[address] Grisel Solares Work Phone: [facility] Work Phone: Start: 12-06-2022 End: 12-06-[address] Grisel Solares Work Phone: [facility] Work Phone: Start: 11-25-2022 End: 11-25-[address] Grisel Solares Work Phone: [facility] Work Phone: Start: 11-25-2022 End: 11-25-[address] Grisel Solares Work Phone: [facility] Neurology Work Phone: Start: 11-14-2022 End: 11-14-[address] [facility] Start: 11-13-2022 End: 11-13-[address] [facility] Work [facility] Start: 11-12-2022 End: 11-12-[address] Grisel Solares Work Phone: [facility] Work Phone: Start: 11-12-2022 End: 11-12-[address] Gr[facility] Sol[facility] Work [facility] Start: 11-08-2022 End: 11-08-[address] Grisel Solares Work Phone: [facility] Work Phone: Start: 11-08-2022 End: 11-08-[address] Gr[facility] Start: 11-07-2022 End: 11-07-[address] Gr[facility] Start: 10-29-[address] Ngoc Solares Work Phone: [facility]-Employee Health Start: 09-29-2022 End: 09-29-2022 Emergency department patient visit Dr. Grisel Solares Work Phone: [facility]-Emergency Department Work Phone: Start: 08-07-2022 End: 08-07-[address] Grisel Solares Work Phone: [facility] Work Phone: Start: 08-07-2022 End: 08-07-[address] Grisel Solares Work Phone: [facility] Internal Medicine Start: 06-12-2022 End: 06-12-[address] Grisel Solares Work Phone: [facility] Work Phone: Start: 06-12-2022 End: 06-12-[address] Grisel Solares Work Phone: [facility]-Outpatient Breast Imaging Start: 06-07-2022 End: 06-08-2022 Emergency department patient visit Dr. Grisel Loja Phone: [facility]-Emergency Department Start: 05-31-2022 End: 05-31-[address] Grisel Solares Work Phone: [facility] Women's Care Start: 04-09-2022 End: 04-09-[address] Grisel Solares Work Phone: [facility] Start: 03-28-2022 End: 03-28-[address] Grisel Solares Work Phone: [facility] Neurology Start: 03-12-2022 End: 03-12-[address] Grisel Loja Phone: [facility] Start: 03-07-2022 End: 03-07-[address] Grisel Solares Work Phone: [facility] Start: 02-27-2022 End: 02-27-[address] Grisel Solares Work Phone: [facility] Work Phone: Start: 02-27-2022 End: 02-27-[address] Grisel Solares Work Phone: [facility] Internal Medicine Start: 02-22-2022 End: 02-22-[address] Grisel Solares Work Phone: [facility] Work Phone: Start: 02-22-2022 End: 02-22-[address] Grisel Solares Work Phone: [facility]-Pulmonary Services/Neurology Start: 02-13-2022 End: 02-13-2022 Emergency department patient visit Dr. Grisel Solares Work Phone: [facility]-Emergency Department Start: 02-13-2022 End: 02-13-[address] Grisel Solares Work Phone: [facility] Start: 11-16-2021 End: 11-16-2021 Encounter for general adult medical examination without abnormal findings Dr. Grisel Solares Work Phone: [facility] Start: 11-16-2021 End: 11-16-[address] Grisel Solares Work Phone: [facility] Internal Medicine Start: 10-20-[address] Ngoc Solares Work Phone: [facility] Health Procedures Date Procedure Procedure Detail Performing Clinician Start: 10-21-2024 Serum inorganic phos phate measurement Angus Batista NP-C Work Phone: Start: 09-07-2024 Estimated creatinine clearance Angus MATOSC Work Phone: Start: 09-07-2024 Plain chest X-ray Angus MATOSC Work Phone: Start: 07-02-2024 Vitamin D, 25-hydrox y measurement Angus MATOSC Work Phone: Comment on above: Vitamin D StatusDefi ciency: <20 ng/mL (50nmol/L)Insufficiency: 20-30 ng/mL (50-75 nmol/L)Sufficiency: 30-100 ng/mL (75-250 nmol/L)Toxicity: >100 ng/mL (>250 nmol/L) Start: 06-18-2024 MRI of joint of lowe r extremity Angus Batista NP-C Work Phone: Start: 05-11-2024 Plain x-ray of pelvi s and lower extremity Angus MATOSC Work Phone: Start: 05-11-2024 X-ray of lumbar spin e, two or three views Angus Batista NP-C Work Phone: Start: 04-30-2024 Bilateral mammography M bryon Batista NP-C Work Phone: Start: 04-30-2024 Ultrasonography of breast Angus MATOSC Work Phone: Start: 06-11-2023 Arthroscopy of ankle [facility] Work Phone: Start: 05-05-2023 CT of head without contrast [facility] Work Phone: Start: 02-27-2023 Bilateral mammography D clare Solares Work Phone: Start: 02-27-[address] Grisel Solares Work Phone: Start: 12-18-[address] Chacho Solares Work Phone: Start: 11-14-2022 Measurement of occul t blood in stool specimen using immunoassay Dr. Grisel Solares Work Phone: Start: 11-13-2022 Measurement of occul t blood in stool specimen using immunoassay Dr. rGisel Solares Work Phone: Start: 11-12-2022 Measurement of occul t blood in stool specimen using immunoassay Dr. Grisel Solares Work Phone: Start: 06-12-2022 Screening mammography D clare Solares Work Phone: Urine culture Dr. Grisel Solares Work Phone: Urine culture Dr. Grisel Solares Work Phone: Urine culture Dr. Grisel Solares Work Phone: Plan of Treatment Date Care Activity Detail Author Start: 11-26-2027 Urine microalbumin profile DTaP,Tdap,Td Vaccine (2 - Td or Tdap) [facility] Start: 09-07-2024 [facility] Start: 09-07-2024 [facility] Start: 09-07-2024 [facility] Start: 09-07-2024 [facility] Start: 06-08-2024 [facility] Start: 05-11-2024 Patient referral [facility] Work Phone: Start: 05-11-2024 Plain x-ray of pelvi s and lower extremity HIP, UNI W/ Pelvis 2-3 Views [facility] Start: 05-11-2024 X-ray of lumbar spin e, two or three views Lumbar Spine 2 or 3 Views [facility] Start: 05-11-2024 XR Lumbar spine 2 or 3 Views [facility] Start: 05-11-2024 XR Pelvis and Hip Views [facility] Start: 03-29-2024 [facility] Start: 10-19-2023 Influenza vaccination Influenza Vacc ine (#1) [facility] Start: 10-08-2023 End: 10-08-2023 Patient encounter procedure 10/08/2023 3:00 PM EDT Appointment Radiology [address] [place] [id number] PLEASE HAVE PT SIGN AUTH OF RELEASE FORM. US WRIST LT; VOLAR+CARPAL TUNNEL-EVAL FOR CTS+SFT LUMP, S/P SURGERY. OUTSIDE ORDER SCANNED INTO CHART/BUILT IN [facility] Radiology Comment on above: PLEASE HAVE PT SIGN AUTH OF RELEASE FORM. US WRIST LT; VOLAR+CARPAL TUNNEL-EVAL FOR CTS+SFT LUMP, S/P SURGERY. OUTSIDE ORDER SCANNED INTO CHART/BUILT IN [employer] Start: 06-11-2023 Anes nerve muscle td n fascia&bursa forearm wrist ANESTH LOWER ARM SURGERY [facility] Start: 06-11-2023 Neuroplasty &/transp os median nrv carpal tunne CARPAL TUNNEL SURGERY [facility] Start: 06-11-2023 Elevation of affecte d extremity [facility] Start: 06-11-2023 Application of ice collar, cap or bag [facility] Start: 06-11-2023 Assessment of risk o f venous thromboembolism [facility] Start: 06-11-2023 Catheterization of vein [facility] Start: 06-11-2023 Deep breathing and coughing exercises [facility] Start: 06-11-2023 Following clinical pathway protocol [facility] Start: 06-11-2023 Incentive spirometry [facility] Start: 06-11-2023 Introduction of urin shviani catheter [facility] Start: 06-11-2023 Patient discharge [facility] Start: 06-11-2023 Patient education [facility] Start: 06-11-2023 Taking patient vital signs [facility] Start: 06-11-2023 Vital signs measurements [facility] Start: 06-11-2023 End: 06-11-2023 [facility] Start: 06-11-2023 Medication education [facility] Start: 05-05-2023 End: 05-05-2023 [facility] Start: 12-18-2022 Anes arthrs/endscpy dstl radius ulna/wrist/hand ANESTH LOWER ARM SURGERY [facility] Start: 12-18-2022 Ndsc wrst surg w/rls transvrs carpl ligm WRIST ENDOSCOPY/SURGERY [facility] Start: 12-18-2022 Notification of physician [facility] Start: 12-18-2022 End: 12-18-2022 Patient discharge [facility] Start: 12-18-2022 Application of ice collar, cap or bag [facility] Start: 12-18-2022 Assessment of risk o f venous thromboembolism [facility] Start: 12-18-2022 Catheterization of vein [facility] Start: 12-18-2022 Deep breathing and coughing exercises [facility] Start: 12-18-2022 Following clinical pathway protocol [facility] Start: 12-18-2022 Incentive spirometry [facility] Start: 12-18-2022 Introduction of urin shivani catheter [facility] Start: 12-18-2022 Patient education [facility] Start: 12-18-2022 Taking patient vital signs [facility] Start: 12-18-2022 Vital signs measurements [facility] Start: 12-18-2022 End: 12-18-2022 [facility] Start: 12-18-2022 Medication education [facility] Start: 10-18-2022 Covid-19 Vaccine () Covid-19 Vaccine () [facility] Start: 02-27-2022 Patient referral [facility] Work Phone: Start: 04-11-2020 Screening for malign ant neoplasm of cervix Cervical Cancer Screening [facility] Start: 04-11-2018 Screening for malign ant neoplasm of cervix Cervical Cancer Screening [facility] Start: 2002 Anxiety Screening Anxiety Screening [facility] Start: 2002 Depression Screening Depression Scre ening [facility] Start: 2002 Hepatitis C screening Hepatitis C [facility] MG Breast - bilatera l Screening [facility] MG Breast - bilatera l Screening [facility] Patient Education [facility] Work Phone: Patient referral [facility] Work Phone: Troponin T.cardiac [Mass/volume] in Serum or Plasma by High sensitivity method [facility] US Breast limited [facility] Immunizations Immunization Date Immunization Notes Care Provider Jordan mcginnis 11-24-2023 influenza, seasonal, injectable, preservative free Angus MATOSC Work Phone: [facility] 12-05-2022 Covid (Spikevax) Dr. Larua Solares Work Phone: [facility] 12-05-2022 influenza, injectabl e, quadrivalent, preservative free Dr. Grisel Solares Work Phone: [facility] 12-05-2022 influenza virus vaccine, unspecified formulation [address] 12-05-2021 influenza, injectabl e, quadrivalent, preservative free Dr. Grisel Solares Work Phone: [facility] 12-05-2021 influenza, seasonal, injectable Dr. Grisel Solares Work Phone: [facility] 11-09-2021 Covid Pfizer Bivalen t Booster Dr. Grisel Solares Work Phone: [facility] 12-26-2020 Covid (Pfizer) Dr. Grisel Solares Work Phone: [facility] 11-22-2020 influenza, injectabl e, quadrivalent, preservative free Dr. Grisel Solares Work Phone: [facility] 11-22-2020 influenza, seasonal, injectable Dr. Grisel Solares Work Phone: [facility] 06-22-2020 Covid (Pfizer) Dr. Grisel Solares Work Phone: [facility] 06-01-2020 Covid (Pfizer) Dr. Grisel Solares Work Phone: [facility] 11-24-2019 influenza, injectabl e, quadrivalent, preservative free Dr. Grisel Solares Work Phone: [facility] 11-24-2019 influenza, seasonal, injectable Dr. Grisel Solares Work Phone: [facility] 12-08-2018 influenza, injectabl e, quadrivalent, preservative free Dr. Grisel Solares Work Phone: [facility] 12-08-2018 influenza, seasonal, injectable Dr. Grisel oSlares Work Phone: [facility] 12-08-2018 influenza virus vaccine, unspecified formulation Osbaldo Ch [facility] 10-05-2018 hepatitis B vaccine, adult dosage Dr. Grisel Solares Work Phone: [facility] 05-04-2018 hepatitis B vaccine, adult dosage Dr. Grisel Solares Work Phone: [facility] 05-04-2018 measles, mumps and rubella virus vaccine Dr. Grisel Solares Work Phone: [facility] 03-30-2018 measles, mumps and rubella virus vaccine Dr. Grisel Solares Work Phone: [facility] 03-16-2018 hepatitis B vaccine, adult dosage Dr. Grisel Solares Work Phone: [facility] 01-23-2018 tuberculin skin test ; purified protein derivative solution, intradermal Us 1 [facility] 01-16-2018 tuberculin skin test ; purified protein derivative solution, intradermal Us 1 [facility] 01-15-2018 influenza, injectabl e, quadrivalent, contains preservative Osbaldo [facility] 11-25-2017 tetanus toxoid, redu bryan diphtheria toxoid, and acellular pertussis vaccine, adsorbed Osbaldo Evonne [facility] 12-02-2009 influenza virus vaccine, unspecified formulation Osbaldo Evonne [facility] 11-17-2008 influenza virus vaccine, unspecified formulation Osbaldo [place] [facility] Work Phone: 12-25-2006 influenza virus vaccine, unspecified formulation Osbaldonadeem Ch [facility] Work Phone: 12-27-2004 influenza virus vaccine, unspecified formulation Osbaldo [facility] Work Phone: Payers Date Payer Category Payer Self-pay [id number] 2023 Private Health Insurance CATHIE Majano [facility] [facility] [id number] 2023-Present [phone] [address] [place] [id number] PPO [id number] 2023 Unknown [id number] 2019 Unknown [id number] Private Health Insurance [id number] Private Health Insurance C[employer] [address] [id number] Unknown [id number] Unknown [facility] [id number] Unknown [id number] Unknown [id number] [id number]. 462 Unknown [id number] 2.16840.1.598943.3.579.2. 462 Unknown [id number] 2.16.840.1.163164.3.579.2. 462 Unknown [id number] 2.16.840.1.144888.3.579.2. 462 Unknown [id number] 2.16.840.1.878187.3.579.2. 462 Unknown [id number] 2.16.840.1.407601.3.579.2. 462 Unknown [id number] 2.16.840.1.400784.3.579.2. 462 Unknown [id number] 2.16.840.1.278235.3.579.2. 462 Unknown [id number] 2.16.840.1.566482.3.579.2. 462 Unknown [id number] 2.840.1.496743.3.579.2. 462 Unknown [id number] 2.840.1.687110.3.579.2. 462 Unknown [id number] 2.840.1.736641.3.579.2. 462 Unknown [id number] 2.840.1.945164.3.579.2. 462 Unknown [id number] 2.840.1.992967.3.579.2. 462 Unknown [id number] 2.840.1.271388.3.579.2. 462 Unknown [id number] 2.16840.1.193462.3.579.2. 462 Unknown [id number] 2.840.1.412261.3.579.2. 462 Unknown [id number] 2.840.1.511279.3.579.2. 462 Unknown [id number] 2.16.840.1.994476.3.579.2. 462 Unknown [id number] 2.16840.1.851883.3.579.2. 462 Unknown [id number] 2.16840.1.110928.3.579.2. 462 Unknown [id number] 2.16.840.1.737822.3.579.2. 462 Unknown [id number] 2.16840.1.174226.3.579.2. 462 Social History Date Type Detail Facility Start: 02-13-2022 End: 06-05-2023 Tobacco smoking status IDIS Unknown if ever smoked [facility] Start: 04-15-2019 Alone [facility] Start: 1985 Sex Assigned At Female [facility] Start: 03-18-2011 End: 09-07-2024 Tobacco smoking status NHIS Ex-smoker [facility] Start: 05-18-1998 End: 05-18-2001 History of tobacco use Current smoker [facility] Start: 05-18-1998 End: 05-18-2001 History of tobacco use Cigarette Smoker [facility] Start: 03-18-2011 Tobacco use and exposure Smokeless tobacco non-user [facility] Start: 07-08-2018 Alcohol intake Current drinke r of alcohol (finding) [facility] Start: 07-08-2018 End: 01-25-2020 History of Social function [facility] Start: 07-08-2018 End: 01-25-2020 Tobacco use panel [facility] Adult Depression Screening Assessment 0 [facility] Start: 08-21-2016 Gender identity Identifies as female gender (finding) [facility] Start: 08-21-2016 Sexual orientation Heterosexual (fin ding) [facility] Start: 05-11-2024 End: 06-15-2024 Sex Female (finding) [facility] NEGATED: Highlighted row [facility] Work Phone: NEGATED: Highlighted row [facility] Medical Equipment Procedure Code Equipment Code Equipment Origin al Text Equipment Identifier Dates Robot-assisted total abdominal hysterectomy with bilateral salpingo-oophorectom y (BILL Plant polysaccharide haemostatic agent, bioabsorbable ()[id number] FDA Start: 03-13-2021 Goals Date Patient Goal Desired Activity /State Mental Status Date Assessment Result Facility 09-07-2024 Cognitive function Level Of Cons ciousness Awake;Alert;Appropriate;Follow s Commands [facility] Work Phone: 06-11-2023 Cognitive function Level Of Cons ciousness Awake;Alert;Appropriate [facility] Work Phone: 06-11-2023 Cognitive function Voice/Name [facility] Work Phone: 05-05-2023 Cognitive function Level Of Cons ciousness Awake;Alert;Appropriate;Follow s Commands [facility] Work Phone: 12-18-2022 Cognitive function Voice/Name [facility] Work Phone: 02-13-2022 Cognitive function Level Of Cons ciousness Awake;Alert;Appropriate;Follow s Commands [facility] Work Phone: Clinical Notes 12-18-2022 to 09-07-2024 Note Date & Type Note Facility 09-07-2024 Discharge summary [facility] 09-07-2024 Discharge summary Note Date/Time September 07, 2024 4:04pm [facility] Medical Records Department [address] [place] [address] Emergency Department Summary 09/07/24 MR#: [id number] Acct: [id number] Name: ANA MARIA JOSEPH ANN Rep #:[id number] : 1985 39 From: Sergo Olsen MD PCP: HANG Jameson Status:REG ER Location: ED HPI History of Present Illness Chief Complaint: Chest Pain Detail of Chief Complaint: Chest pressure that started last evening at rest Informant: patient Onset/Context/Timing Onset: Yesterday Activity at onset: sudden Timing: Continuous Quality: Positive for Heaviness and Pressure Location: Substernal Current Severity: Moderate Maximum Severity: Severe Worsened By: Nothing Relieved By: Nothing Associated Symptoms: Positive for Dyspnea; Negative for Nausea, Vomiting, Diaphoresis, Cough, Fever, Lightheadedness, Acid Reflux or Palpitations Narrative Narrative: Patient is a 39-year-old woman who presents with chest pressure that started at rest last evening approximately 1900. She had 20 to 30 minutes of tingling in her left upper extremity. [facility] She is also been [facility] by Lilian [facility]. Her most recent visit was a couple of years ago. She had an echo which revealed no structural abnormality. She had a Holter monitor which revealed no significant dysrhythmiaor bradycardia. She presents today because of the chest pressure that has been unrelenting. Nothing makes it better or worse. It is not positional. It is not related to food. She denies history of VTE. She has no risk factors for VTE. She is not on hormonal therapy. She denies leg pain, swelling discoloration. Patient does have history of IBS. She also has history of pain in multiple areas. GERD, segmental and somatic dysfunction of the pelvic region, thoracic region, lumbar region and cervical region. She also has a history of generalized anxiety disorder. There is a history of bradycardia and she has been bradycardic on prior EKGs. Prior Similar Symptoms: No CVD Risk Factors: Positive for Hypertension; Negative for Diabetes, Hypercholesterolemia, Family History 1' </=55 or Smoking PE Risk Factors: Negative for Recent Travel/Surgery, Recent Immobilization, Prior DVT or PE, Cancer or OCP + Smoking + >/=35 TAD Risk Factors: Positive for Hypertension and Family History; Negative for Marfan's Syndrome PFSH [facility] Medical History Left hip pain Cardiology follow-up encounter Acute conjunctivitis, left eye History of Holter monitoring Generalized anxiety disorder Vitamin deficiency Bilateral carpal tunnel syndrome Numbness and tingling in both hands Positive Tinel's sign Right ear impacted cerumen History of irregular heartbeat History of echocardiogram Chest pain History of stress test Bipolar 1 disorder Essential hypertension Abnormal EKG Bradycardia Wears glasses Wears dentures Wears partial dentures Alcohol use Migraine headache Hx of vertigo Gastric reflux Former smoker Hypertension Tinnitus Nonscarring hair loss Screening for thyroid disorder Tinnitus, right GI bleed vision problem with headache Neuropathy IBS (irritable bowel syndrome) H/O emotional problems History of eating disorder Chronic neck and back pain Chronic diarrhea H/O hemorrhoids Home Medications ?Medication ?Instructions ?Recorded ?Last Taken ?Type cetirizine 10 mg capsule (Zyrtec) 10 mg PO DAILY 02/14 Unknown History ibuprofen 800 mg tablet 800 mg PO Q8H PRN pain 7 day s #30 03/13/21 Unknown Rx tabs dicyclomine 20 mg tablet 20 mg PO TID PRN abdominal p ain 11/16/21 Unknown Rx #180 tabs pantoprazole 40 mg tablet,delayed 40 mg PO DAILY reflu x #90 tabs 02/27/22 06/11/23 05:00 Rx release (Protonix) buspirone 30 mg tablet 30 mg PO BID 90 days #180 ta bs 05/28/22 11/26/23 Rx cariprazine 1.5 mg capsule 3 mg PO DAILY 11/25/22 1011/10 History (Vraylar) cyanocobalamin (vitamin B-12) 100 100 mcg PO DAILY Unknown History mcg tablet (Vitamin B-12) propranolol 20 mg tablet 20 mg PO DAILY BP 06/05/23 1 History eletriptan 20 mg tablet (Relpax) See Rx Instructions . Route 09/29/23 Unknown Rx .COMPLEX #9 tabs erenumab-aooe 140 mg/mL 140 mg subcut QMONTH migrain es #1 09/29/23 Unknown Rx subcutaneous auto-injector mL (Aimovig Autoinjector) ondansetron HCl 4 mg tablet 4 mg PO TID PRN nausea and 09/29/23 Unknown Rx vomiting #90 tabs tizanidine 4 mg tablet (Zanaflex) 8 mg (2 x 4 mg) PO Q HS #60 tabs 09/29/23 Unknown Rx ubrogepant 100 mg tablet 100 mg PO .COMPLEX migraine 09/29/23 Unknown Rx headache #16 tabs empty vial 05/11/24 Unknown History semaglutide (weight loss) 0.5 1.5 mg subcut QWEEK 05/19 10/11 Unknown History mg/0.5 mL subcutaneous pen injector Allergy/AdvReac Type Severity Reaction Status Date / Time Penicillins AdvReac Severe hives Verified 09/07/24 11:16 cefaclor (From [facility]) AdvReac Intermediate Hives Verified 09/07/24 11:16 doxycycline AdvReac Intermediate Diarrhea Verified 09/07/24 11:16 Family History Mother Hypertension Arthritis Anemia Father Diabetes Anesthesia complication Brother Brain cancer Anxiety Sister Asthma Grandmother CVA (cerebral vascular accident) Daughter Anxiety Grandfather COPD (chronic obstructive pulmonary disease) CVA (cerebral vascular accident) Other Seizures Surgical History History of carpal tunnel surgery of left wrist History of carpal tunnel surgery of right wrist History of salpingectomy History of right salpingo-oophorectomy History of hysterectomy Hx of colonoscopy Hx of esophagogastroduodenoscopy history of upper and lower scope History of cholecystectomy H/O dilation and curettage History of tonsillectomy Social History household members: spouse and children number of children: 3 current occupational status: employed current occupation: [employer] history of recent travel: No sexually active: Yes Smoking Status: Former smoker alcohol intake: never substance use type: does not use caffeine: No what type of physical activity do you participate in: running frequency: 3-4 times per week seatbelt use: always do you feel safe at home: Yes additional social history: - Donald [facility] ED Constitutional Constitutional ED: Denies chills, fever(s), subjective or sweats Eyes Eyes: Reports none ENT ENT ED: Denies rhinorrhea or sore throat Cardiovascular Cardiovascular: Reports as per HPI; Denies orthopnea or paroxysmal nocturnal dyspnea Respiratory/Chest Respiratory/Chest: Denies cough, dyspnea, dyspnea on exertion, orthopnea or paroxysmal nocturnal dyspnea Gastrointestinal Gastrointestinal: Denies abdominal pain, diarrhea, melena or vomiting Genitourinary Genitourinary ED: Denies dysuria, hematuria or urinary frequency Musculoskeletal Musculoskeletal: Denies back pain Neurologic Neurologic: Denies paresthesias Hematologic/Lymphatic Hematologic/Lymphatic: Denies easy bleeding or easy bruising EXAM Physical Exam Const Vital Signs: 09/07/24 11:16 09/07/24 11:20 09/07/24 11:49 Temperature 98.2 F Temperature Source Oral Pulse Rate 70 Respiratory Rate 20 H Respiratory Effort Normal Blood Pressure 128/80 H Blood Pressure Mean 96 Pulse Ox 100 Oxygen Delivery Method Room Air 09/07/24 12:28 09/07/24 13:31 09/07/24 14:04 Temperature Temperature Source Pulse Rate 63 91 47 L Respiratory Rate 15 19 H 15 Respiratory Effort Blood Pressure 117/78 Blood Pressure Mean 91 Pulse Ox 100 98 100 Oxygen Delivery Method 09/07/24 15:00 Temperature Temperature Source Pulse Rate 67 Respiratory Rate 17 Respiratory Effort Blood Pressure 122/72 H Blood Pressure Mean 88 Pulse Ox 99 Oxygen Delivery Method Positive well nourished and well developed Constitutional Narrative: BMI is 35.8. General Appearance ED: well developed and NAD HEENT normocephalic and atraumatic Eyes PERRL and EOMs intact bilaterally General Eye ED: Negative for scleral icterus Neck no lymphadenopathy, supple and no JVD Resp normal respiratory effort and clear to auscultation bilaterally Cardio regular rate, regular rhythm, S1 normal heart sound, S2 normal heart sound and no murmurs GI normal to inspection, nondistended, normoactive bowel sounds, soft to palpation,non-tender, non-distended and no masses; Negative for hepatosplenomegaly Back/Spine no CVA tenderness Extremity normal to inspection Extremity Narrative: There is no asymmetry, discoloration, ligament distention, palpable cords soundson the distribution deep venous system. Neuro oriented x3 and CN's II-XII intact bilaterally Sensorium / Orientation: awake and alert Psych mental status grossly normal Skin no rashes or lesions noted and no wounds Heart Score History: Slightly/Non-Suspicious ECG: Normal Age: </= 45 years Risk Factors: 1 or 2 Risk Factors Troponin: </= Normal Limit Score: 1 MDM MDM MDM Narrative Medical decision making narrative: Differential diagnosis is cardiac versus noncardiac. Noncardiac would be affective disorder, GI etiology pulmonary etiology. Patient is PERC negative and Wells score is less than 3. History and physical not consistent with aorticdissection. Prior records through the heart [facility] were reviewed. Patient's Holter monitor was reviewed as well as echo and Dr. Douglas and Lilian Cisse's note. Lab Data Attestation: I reviewed the patient's lab results. Lab results narrative: CBC is unremarkable. BMP is normal. Troponin with greater than 14 hours of pain is less than 6 which rules out cardiac etiology. Labs: Laboratory Results - last 24 hr 09/07/24 12:17 WBC 8.4 RBC 3.96 L Hgb 12.5 Hct 36.2 L MCV 91.4 MCH 31.6 MCHC 34.5 RDW Std Deviation 43.4 RDW Coeff of [place] 12.9 Plt Count 259 MPV 9.9 Immature Gran % (Auto) 0.200 Neut % (Auto) 68.7 Lymph % (Auto) 23.5 [place] % (Auto) 6.2 Eos % (Auto) 0.9 Baso % (Auto) 0.5 Absolute Neuts (auto) 5.8 Absolute Lymphs (auto) 1.98 Nucleated RBC % 0 Sodium 140 Potassium 3.5 Chloride 105 Carbon Dioxide 21.8 Anion Gap 13 BUN 14 Creatinine 0.94 Estim Creat Clear Calc 91.98 Est GFR (MDRD) Non-Af 78 BUN/Creatinine Ratio 14.9 Glucose 81 Calcium 9.6 Troponin T High Sens < 6 Radiography Chest X-Ray - ED: Read by ED Physician (Chest x-ray independent reviewed interpreted by me as normal. Cardiac silhouette size normal. Lung parenchyma normal. [place] structures are normal. This was compared toPerformed November 2017) Diagnostic Testing: Clinical Impression(s) from Imaging Studies Chest X-Ray 09/07/24 11:38 IMPRESSION: Negative Chest. Reading Location: [facility] Differential Diagnosis Chest pain/SOB: pulmonary embolism Reason(s) PE less likely: Positive for PERC negative Management Discussion w/another healthcare provider: [facility] Tender Treatment and Re-Evaluation :: Case was Dr. Armando to use. He informing that this may represent a neurohormonal issue with dopamine serotonin specially since she has a history of IBS. He recommended gluten-free diet. Patient was informed the cause of her pain is unknown. She was informed that my responsibility is to rule out life-threatening issues. She does not have any life-threatening issues. Therefore we will discharge to home Comments:: Patient did have an episode where she was lightheaded and she was bradycardic. She had increased chest pressure at that time. Suspect this was avagal response. Discharge Plan Triage Chief Complaint: Chest Pain ED Provider: Sergo Olsen Dx/Rx/DC Orders Clinical Impression: Chest pressure, IBS (irritable bowel syndrome), Bradycardia, Vasovagal near syncope, Elevated blood pressure reading with diagnosis of hypertension Instructions: ED Chest Pain, Noncardiac, ED Chest Pain, Uncertain Cause, ED Near-Fainting- Vagal Reaction Prescriptions: No Action dicyclomine 20 mg tablet 20 mg PO TID PRN (Reason: abdominal pain) Qty: 180 3RF pantoprazole [Protonix] 40 mg tablet,delayed release (DR/EC) 40 mg PO DAILY Qty: 90 3RF Vraylar 1.5 mg capsule 3 mg PO DAILY eletriptan [Relpax] 20 mg tablet See Rx Instructions .ROUTE .COMPLEX Qty: 9 2RF Rx Instructions: Take 1 tablet PO every 2 hours as needed for headache up to 2 tablets per day Aimovig Autoinjector 140 mg/mL auto-injector 140 mg subcut QMONTH Qty: 1 11RF ondansetron HCl 4 mg tablet 4 mg PO TID PRN (Reason: nausea and vomiting) Qty: 90 1RF tizanidine [Zanaflex] 4 mg tablet 8 mg PO QHS Qty: 60 11RF ubrogepant 100 mg tablet 100 mg PO .COMPLEX Qty: 16 4RF Rx Instructions: Take 1 tablet orally every 2 hours as needed for headache up to 2 tablets daily semaglutide (weight loss) 0.5 mg/0.5 mL pen injector 1.5 mg subcut QWEEK Rx Instructions: administer weeks 5 through 8 of therapy (DME) empty vial Misc See Rx Instructions .Route Rx Instructions: As directed Zyrtec 10 mg capsule 10 mg PO DAILY ibuprofen 800 mg tablet 800 mg PO Q8H PRN (Reason: pain) 7 Days Qty: 30 0RF cyanocobalamin (vitamin B-12) [Vitamin B-12] 100 mcg tablet 100 mcg PO DAILY propranolol 20 mg tablet 20 mg PO DAILY buspirone 30 mg tablet 30 mg PO BID 90 Days Qty: 180 1RF Primary Care Provider: Angus Batista Referrals: Angus Batista, METAL FURNACE OPERATOR-C [Primary Care Provider] - 1 Week Activity Restrictions/Additional Instructions: Recommend gluten-free diet to see if this helps you with your bradycardia and chest discomfort Print Language: Welsh Disposition Disposition: Home, Self Care What to do if you have Problems For any increased pain, shortness of breath, bleeding, nausea or vomiting, chestpain, or any unexpected problems, contact your Primary Care Provider. Call [facility] ([phone]) or report to the closest Emergency Room. Call 911 if necessary. 09/07/24 1558 <Electronically signed by Sergo Olsen MD> Cosigner Signature (if applicable): CC: HANG Batista ~ Signed ADDENDUM by Dr. Sergo Olsen MD on 09/07/24 at 1604 EKG sinus bradycardia rate 57. Other than the sinus bradycardia the EKG is normal. 09/07/24 1604<Electronically signed by Sergo Olsen MD> Cosigner Signature (if applicable): cc: METAL FURNACE OPERATORChrissy Batista ~* Signed [facility] Work Phone: 1(795) 927-381507-22-2025 Radiology Diagnostic study note [facility] Imaging Services [address] [place] [id number] Chest 1 View (Portable) MR#: [id number] Acct: [id number] Name: ANA MARIA JOSEPH ANN Rep #: [id number] : 1985 F 39 From: Megan Gambino MD PCP: Angus Batista NP-C Status: REG ER Study:Chest 1 View (Portable) Date of Exam: 09/07/24 Exam# [id number] Ordering Dr: Eyad Olsen MD PROCEDURE: CHEST 1 VIEW (PORTABLE) 09/07/2024 REASON FOR EXAM: CHEST PAIN TECHNIQUE: Frontal view of the chest. COMPARISON: Chest radiograph 11/18/2017. FINDINGS: Hardware: None. Heart: The heart size is normal. Lungs: No focal consolidation, pleural effusion or pneumothorax. Bones: The bones are unremarkable. RAD/Chest 1 View (Portable) IMPRESSION: Negative Chest. Reading Location: [facility] CC: HANG Batista; Dr. Sergo Olsen MD ~ Inserting Press Operator: Signed [facility]04-28-2025 Evaluation note* Diagnosis Onset Date Resolution Status Admit Date Encounter for routine gynecological examination noneactive June 14, 2024 12:57pm [facility] Work Phone: 1(512) 125-207704-22-2025 Procedure note [facility] Pulmonary Services/Neurology [address] [place] [address] MR#: [id number] Acct: [id number] Name: ANA MARIA JOSEPH ANN Rep #:[id number] : 1985 38 From: Ramona Martin MD Referring Dr: Ashkan Ortiz MD Sta tus: REG CLI Location: PSN Date: 06/08/24 Sex: F C NCS and/or EMG Patient Report Ordering Doctor: Ashkan Ortiz DATE OF SERVICE: 06/08/24 Clinical Summary: 38 year old female patient with symptoms of numbness in the left lateral thigh region. She denies having similar symptoms in the right lower extremity. Nerve Conduction Studies Summary: Nerve conduction studies were performed primarily in the left lower extremity. The left lateral femoral cutaneous SNAP was absent. For comparison purposes, theright lateral femoral cutaneous SNAP wasperformed and also found to be absent. All other performed nerve conductions were normal. Needle Examination Summary: Needle examination of select muscles of the left lower extremity was normal. Impression: As per guidelines, unilateral meralgia paresthetica is confirmed electrodiagnostically by an absentand/or low amplitude lateral femoral cutaneous response on the symptomatic side in comparison to a normal response onthe asymptomatic side as this particular nerve conduction is technically difficultto adequately obtain and visualize in the setting of increased body habitus/BMI. However, this patient's lateral femoral cutaneous sensory response was absent bilaterally, which can be seen in the setting of bilateral meralgia parestheticaor in the setting of technical limitations/difficulties of adequately stimulating the nerve altogether. As such, this electrodiagnostic study is not definitively diagnostic of a left or right lateral femoral cutaneous mononeuropathy. There is also no electrodiagnostic evidence of a left lumbosacral radiculopathy. Multi Select Codes Neurology Neurology Interp Codes: 00456-46 Musc test done w/n test comp (interp) (1) and 59112-65 Nrv cndj tst 5-6 studies (interp) 06/08/24 1127 MD> Date _ Ramona Martin MD CC: HANG Batista; Dr. Ramona Martin MD; Dr. Ashkan Ortiz MD ~ Date Dictated: 06/08/2450 Date Transcribed: 06/08/24949 Inserting Press Operator: Signed [facility]03-26-2025 Radiology Diagnostic study note [facility] Imaging Services [address] [place], [place] [address] HIP, UNI W/ Pelvis 2-3 Views MR#: [id number] Acct: [id number] Name: ANA MARIA JOSEPH ANN Rep #: [id number] : 1985 F 38 From: Otoniel Mccoy MD PCP: HANG Jameson Status: REG CLI Study:HIP, UNI W/ Pelvis 2-3 Views Date of Ex am: 05/11/24 Exam# [id number] Ordering Dr: Ashkan Ortiz MD PROCEDURE: HIP, UNI W/ PELVIS 2-3 VIEWS 05/11/2024 REASON FOR EXAM: PAIN TECHNIQUE: 2 views of the left hip. AP Pelvis. 3 images COMPARISON: None available FINDINGS: No fracture or dislocation. The joint spaces appear within limits. Symmetric appearing SI joints and pubic symphysis appear within limits. Vague asymmetric sclerosis at the right pubis may be degenerative. RAD/HIP, UNI W/ Pelvis 2-3 Views IMPRESSION: Left hip appears within limits. Vague asymmetric sclerosis at the right pubis may be degenerative, nonspecific. Reading Location: [id number] CC: METAL FURNACE OPERATOR-C Angus Batista; Dr. Ashkan Ortiz MD ~ Inserting Press Operator: Signed [facility]03-25-2025 Discharge summary Author Paula Jang [facility] Note Date/Time May 11, 2024 7:0 0pm [facility] Physical Therapy [facility] [address] [place] [address] [address] [place] [id number] / REHABILITATION SERVICES DISCHARGE SUMMARY MR#: [id number] Acct: [id number] Name: ANA MARIA JOSEPH ANN Rep #: [id number] : 1985 38 From: Paula Hwang Referring DrChacho: Ledy Foley Status: REG RCR Insurance: [facility] [employer] [employer] INSURANCE Discharge Summary D/C summary: It has been my pleasure to treat ANA MARIA JOSEPH referred by GEOVANNI Johnson, HANG, with the diagnosis of meralgia paresthetica L leg for a total of 6 visit(s). Discharge Date: 05/11/24 Please see the following information for a summary of their discharge status. Subjective Subjective: Pt needs to schedule an appt with Orthopedics. She is no better. She is worse when she is on her feet and especially when at work on feet for 10 hours (17,000 steps yesterday). The numbness is always there. The burning is not as bad sometimes. Nothing here in PT has really helped. She reports that heat helps and she does do heat at home. Pain L leg pain: Pain Intensity (Out of 10): 4 Overall Improvement % Improvement: 0 Objective Objective/Function: L hip flexibility is improved on the L Pt has pain with prone stretching of the L hip flexor.. Goals Goal 1:: I HEP Goal Progress: Goal Met Goal 2:: Increase hip flexor/Quad flexibility on the L. Goal Progress: Goal Met Goal 3:: Decrease freq/intensity of L anterior Quad burning with standing or walking by 50% Goal Progress: Not Progressing Plan Plan: DC PT back to DRChacho no improvement in pain or numbness D/C Information Discharge Comments: no improvement d/c sentence: If there are questions or concerns regarding this patient's physical therapy, please feel free to call me at [phone]. Thank you for the referral of thispatient. Sincerely, Paula Jang, KHUSHI Balance/Gait/Functional tests Balance/Special Test Scores Lower Extremity Functional Score: 67 Improvement % Improvement: 0 <Electronically signed by Paula Jang MPT> 05/11/24 1203 CC: METAL FURNACE OPERATOR-Duke Batista; Ledy GALARZA METAL FURNACE OPERATOR-Duke Beam ~ Signed [facility] Work Phone: 1(366) 985-387403-25-2025 Radiology Diagnostic study note [facility] Imaging Services [address] [place], [place] [id number] Lumbar Spine 2 or 3 Views MR#: [id number] Acct: [id number] Name: ANA MARIA JOSEPH YG RICHTER Rep #: [id number] : 1985 F 38 From: Jose Hector DO PCP: HANG Jameson Status: REG CLI Study:Lumbar Spine 2 or 3 Views Date of Exam: 05/11/24 Exam# [id number] Ordering Dr: Ashkan Ortiz MD EXAM: Two views lumbosacral spine. CLINICAL HISTORY: Thigh numbness. COMPARISON: None TECHNIQUE: Two views of the lumbosacral spine. FINDINGS: Two views of the lumbosacral spine were obtained and demonstrate 5 lumbar type vertebral bodies below the last set of paired ribs. The vertebral body heights and alignment are within normal limits. Thereis no spondylolisthesis or spondylolysis. Intervertebral disc spaces are well-maintained. Sacrum appears grossly unremarkable. Phleboliths are seen in the pelvis. Paravertebral soft tissues are unremarkable. RAD/Lumbar Spine 2 or 3 Views IMPRESSION: Unremarkable lumbar sacral spine. Reading Location: [id number] CC: HANG Batista; Dr. Ashkan Ortiz MD ~ Inserting Press Operator: Signed [facility]03-25-2025 Discharge summary [facility] Physical Therapy [facility] [address] [place] [address] [address] [place] [address] / REHABILITATION SERVICES DISCHARGE SUMMARY MR#: [id number] Acct: [id number] Name: ANA MARIA JOSEPH Rep #: [id number] : 1985 38 From: Paula Hwang Referring DrChacho: Ledy Foley Status: REG RCR Insurance: [facility] [employer] [employer] INSURANCE Discharge Summary D/C summary: It has been my pleasure to treat ANA MARIA RICHTER OPAL referred by GEOVANNI Johnson, METAL FURNACE OPERATORChrissy, with the diagnosis of meralgia paresthetica L leg for a total of 6 visit(s). Discharge Date: 05/11/24 Please see the following information for a summary of their discharge status. Subjective Subjective: Pt needs to schedule an appt with Orthopedics. She is no better. She is worse when she is on her feet and especially when at work on feet for 10 hours (17,000 steps yesterday). The numbness is always there. The burning is not as bad sometimes. Nothing here in PT has really helped. She reports that heat helps and she does do heat at home. Pain L leg pain: Pain Intensity (Out of 10): 4 Overall Improvement % Improvement: 0 Objective Objective/Function: L hip flexibility is improved on the L Pt has pain with prone stretching of the L hip flexor.. Goals Goal 1:: I HEP Goal Progress: Goal Met Goal 2:: Increase hip flexor/Quad flexibility on the L. Goal Progress: Goal Met Goal 3:: Decrease freq/intensity of L anterior Quad burning with standing or walking by 50% Goal Progress: Not Progressing Plan Plan: DC PT back to no improvement in pain or numbness D/C Information Discharge Comments: no improvement d/c sentence: If there are questions or concerns regarding this patient's physical therapy, please feel free to call me at [phone]. Thank you for the referral of thispatient. Sincerely, Paula Jang, KHUSHI Balance/Gait/Functional tests Balance/Special Test Scores Lower Extremity Functional Score: 67 Improvement % Improvement: 0 05/11/24 1203 CC: HANG Batista; Ledy [facility] METAL FURNACE OPERATOR-Duke Beam ~ Signed [facility]03-25-2025 Evaluation note* Diagnosis Onset Date Resolution Status Admit Date Meralgia paresthetica inactive Apr 1:29pm Encounter for routine gynecological examination noneactive June 14, 2024 12:57pm [facility] Work Phone: 1(980) 873-689003-14-2025 Radiology Diagnostic study note [facility] Imaging Services [address] [place], [place] [address] Breast Limited Unilateral MR#: [id number] Acct: [id number] Name: ANA MARIA JOSEPH ANN Rep #: [id number] : 1985 F 38 From: Valeriano Kumari MD PCP: HANG Jameson Status: REG CLI Study:Breast Limited Unilateral Date of Exam: 04/30/24 Exam# [id number] Ordering Dr: Alem Gross CNM PROCEDURE: BREAST LIMITED UNILATERAL REASON FOR EXAM: BREAST LUMP Palpable lump in the upper inner quadrant of the right breast. COMPARISON: Comparison is made with prior mammogram done earlier in the day. TECHNIQUE: Targeted ultrasound of the right breast was performed. FINDINGS: RIGHT: Ultrasound targeted to the upper inner quadrant of the right breast. The breast tissue appears sonographically normal. No cyst, solid mass, or suspicious shadowing. US/Breast Limited Unilateral IMPRESSION: No sonographic abnormality is seen. BI-RADS 1: NEGATIVE. RECOMMEND ANNUAL MAMMOGRAPHIC SCREENING. Reading Location: [place] [address] CC: DARIN Gross; HANG Batista ~ Inserting Press Operator: Signed [facility]02-21-2025 Evaluation note* Diagnosis Onset Date Resolution Status Admit Date Breast pain acute March 9:05am Meralgia paresthetica inactive [facility] 2024 1:29pm Encounter for routine gynecological examination noneactive June 14, 2024 12:57pm [facility] Work Phone: 1([phone]) 660-528412-24-2024 Evaluation note* Diagnosis Onset Date Resolution Status Admit Date Bilateral carpal tunnel syndrome acute February 09, 024 11:05am Breast pain acute March 9:05am Meralgia paresthetica inactive [facility] 2024 1:29pm [facility] Work Phone: [phone] 716-352407-29-2024 Telephone encounter Note* Telephone Encounter - Chrissie Payne - 09/15/2023 11:02 AM EDT Patient has been scheduled for their MSK US exam on 10/08/23 : 3:00 PM at [facility]. [facility]07-29-2024 Miscellaneous Notes* Telephone Encounter - Chrissie Payne - 09/15/2023 11:02 AM EDT Patient has been scheduled for their MSK US exam on 10/08/23 : 3:00 PM at [facility]. * Telephone Encounter - Chrissie Payne - 09/11/2023 1:34 PM EDT Called patient on September 11, 2023 at 1:34 PM to schedule their MSK US exam. No answer, line busy could not leave VM, 1st attempt. * Telephone Encounter - Osbaldo Ch PCNA - 09/10/2023 4:12 PM EDT Visit Type: US MSK1 Visit Length: 45 OR 60 MINUTES Order Name/Protocol: PLEASE HAVE PT SIGN AUTH OF RELEASE FORM. US WRIST LT; VOLAR+CARPAL TUNNEL-EVAL FOR CTS+SFT LUMP, S/P SURGERY. OUTSIDE ORDER SCANNED INTO CHART/BUILT IN SYGNO Preferred Provider: N/A Comment: Please ask if the patient has ever had any prior surgery to their LT wrist. If so, upgradethe visit type to an MSK1 and notate the surgical hx in the Appointment Note. Location: Depending on the surgical hx, this patient can have this exam performed at any of our three locations. Slot held: N/A documented in [facility] encounterC[facility] Telephone encounter Note * Telephone Encounter - Chrissie Payne - 09/11/2023 1:34 PM EDT Called patient on September 11, 2023 at 1:34 PM to schedule their MSK US exam. No answer, line busy could not leave VM, 1st attempt. [facility]07-24-2024 Telephone encounter Note* Telephone Encounter - Osbaldo Ch PCNA - 09/10/2023 4:12 PM EDT Visit Type: US MSK1 Visit Length: 45 OR 60 MINUTES Order Name/Protocol: PLEASE HAVE PT SIGN AUTH OF RELEASE FORM. US WRIST LT; VOLAR+CARPAL TUNNEL-EVAL FOR CTS+SFT LUMP, S/P SURGERY. OUTSIDE ORDER SCANNED INTO CHART/BUILT IN SYGNO Preferred Provider: N/A Comment: Please ask if the patient has ever had any prior surgery to their LT wrist. If so, upgradethe visit type to an MSK1 and notate the surgical hx in the Appointment Note. Location: Depending on the surgical hx, this patient can have this exam performed at any of our three locations. Slot held: N/A [facility]04-24-2024 History and physical note Author Ashkan Ortiz [facility] June 11, 2023 7:16am Note Date/Time June 11, 2023 7:1 6am [facility] Medical Records Department [address] [place] [address] History & Physical Exam 06/11/2315 MR#: [id number] Acct: [id number] Name: ANA MARIA JOSEPH ANN Rep #:[id number] : 1985 37 From: Ashkan Ortiz MD [facility] Location: [place] [address] HPI - General HPI Narrative ANA MARIA JOSEPH, is a 37 F who presents for left ECTR. ok to proceed. no changes to h and p. consent up to date. left wrist marked. rab, instructions and post opcare discussed. MR#: [id number] Acct: [id number] Name: ANA MARIA JOSEPH ANN Rep #: [id number] : 1985 Provider: Dr. Ashkan Ortiz MD Age/Sex: 37/F [facility] Status: Signed with Addenda ADDENDUM by Dr. Ashkan Ortiz MD on 05/27/23 at 1148 Assessment and Plan Assessment and Plan (1) Carpal tunnel syndrome, right: Status: Acute Plan: REMOVE CPT for injection (2) Bilateral carpal tunnel syndrome: Status: Acute Plan Details Goals & Barriers: Goals Decrease pain Decrease spasm Improve workability 05/27/23 1148 <Electronically signed by Ashkan Ortiz MD> Date Ashkan Ortiz MD cc: ~* Signed Intake Vital Signs 05/04/2420:58 05/21/2407:16 Height 5 ft 5 in 5 ft 5 in Intake Visit Reasons: LEFT WRIST Accompanied by: Self Is patient in pain?: Yes Pain scale (1-10): 5 Allergies Penicillins Adverse Reaction (Severe, Verified 05/27/23 11:16) hives cefaclor [From Ceclor] Adverse Reaction (Intermediate, Verified 05/27/23 11:16) Hivesdoxycycline Adverse Reaction (Intermediate, Verified 05/27/23 11:16) Diarrhea Medications cetirizine 10 mg capsule (Zyrtec) 10 mg PO DAILY 02/15/20 [History Confirmed 05/27/23] ibuprofen 800 mg tablet 800 mg PO Q8H PRN pain 7 days #30 tabs 03/13/21 [Rx Confirmed 05/27/23] dicyclomine 20 mg tablet 20 mg PO TID PRN abdominal pain #180 tabs 11/16/21 [Rx Confirmed 05/27/23] propranolol 20 mg tablet 20 mg PO BID BP #90 tabs 02/13/22 [Rx Confirmed 05/27/23] pantoprazole 40 mg tablet,delayed release (Protonix) 40 mg PO DAILY reflux #90 tabs 02/27/22 [Rx Confirmed 05/27/23] buspirone 30 mg tablet 30 mg PO BID 90 days #180 tabs 05/28/22 [Rx Confirmed 05/27/23] Ubrelvy 100 mg tablet (ubrogepant) 100 mg PO .COMPLEX migraine headache #10 tabs1 [Rx Confirmed 05/27/23] cariprazine 1.5 mg capsule (Vraylar) 1.5 mg PO QODAY 11/25/22 [History Confirmed 05/27/23] eletriptan 20 mg tablet (Relpax) See Rx Instructions .Route .COMPLEX #9 tabs 11/25/22 [Rx Confirmed 05/27/23] erenumab-aooe 140 mg/mL subcutaneous auto-injector (Aimovig Autoinjector) 140 mgsubcut QMONTH migraines #1 mL 11/25/22 [Rx Confirmed 05/27/23] ondansetron HCl 4 mg tablet 4 mg PO TID PRN nausea and vomiting #90 tabs 11/25/22 [Rx Confirmed 05/27/23] tizanidine 4 mg tablet (Zanaflex) 8 mg (2 x 4 mg) PO QHS #60 tabs 11/25/22 [Rx Confirmed 05/27/23] cyanocobalamin (vitamin B-12) 100 mcg tablet (Vitamin B-12) 100 mcg PO DAILY 12/06/22 [History Confirmed 05/27/23] [facility] Medical History Abnormal EKG Acid reflux Alcohol use Bilateral carpal tunnel syndrome Bipolar 1 disorder Bradycardia Carpal tunnel syndrome Chest pain Chronic diarrhea Chronic headaches Chronic neck and back pain Environmental allergies Essential hypertension Former smoker Gastric reflux Generalized anxiety disorder GI bleed H/O emotional problems H/O hemorrhoids History of eating disorder History of echocardiogram History of gallstones History of Holter monitoring History of IBS History of irregular heartbeat History of stress test History of UTI Hx of vertigo Hypertension IBS (irritable bowel syndrome) Migraine headache Neuropathy Nonscarring hair loss Numbness and tingling in both hands Positive Tinel's sign Right ear impacted cerumen Screening for thyroid disorder Severe headache Tinnitus Tinnitus, right vision problem with headache Vitamin deficiency Wears dentures Wears glasses Wears partial dentures Surgical History H/O dilation and curettage History of cholecystectomy History of hysterectomy History of right salpingo-oophorectomy History of salpingectomy History of tonsillectomy history of upper and lower scope Hx of colonoscopy Hx of esophagogastroduodenoscopy Family History Mother Hypertension Arthritis AnemiaFather Diabetes Anesthesia complicationBrother Brain cancer AnxietySister AsthmaGrandmother CVA (cerebral vascular accident)Daughter AnxietyGrandfather COPD (chronic obstructive pulmonary disease) CVA (cerebral vascular accident)Other Seizures Social History household members: spouse and children number of children: 3 current occupational status: employed current occupation: [employer] history of recent travel: No sexually active: Yes Smoking Status: Former smoker alcohol intake: never substance use type: does not use caffeine: No what type of physical activity do you participate in: running frequency: 3-4 times per week seatbelt use: always do you feel safe at home: Yes additional social history: - Donald LONG LEFT WRIST Details: This documentation accurately reflects the service provided and the decisions made by me, Dr. Ashkan Ortiz MD 05/27/23 8213. Part of today?s visit was documented by [ ], acting as scribe. ANA MARIA JOSEPH is a 37 year old F here today for 5 months follow-up right endoscopic carpal tunnel release. Wants a left carpal tunnel cortisone injection. Let side getting worse - there all the time. Mostly middle and thumb Ortho Exam General General: Yes no acute distress Neurologic: Yes alert and Yes oriented x3 Psychologic: Yes reasonable and appropriate Right Wrist/Hand Skin/Wound: Yes CDI, Yes healed, No Swelling, No Ecchymosis, Yes nail intact andYes capillary refill normal Right Wrist: Yes ROM-Extension 0-60, ROM-Flexion 0-80, ROM-Pronation 0-80 and ROM-Supination 0-90 Motor: EPL: 5, FDP-2: 5, 1st Dorsal Interosseous: 5 and APB: 5 Sensation: Radial: I, Ulnar: I and Median: I Left Wrist/Hand Skin/Wound: No Swelling and No Ecchymosis Left Wrist: Yes ROM-Extension 0-60, Yes ROM-Flexion 0-80, Yes ROM-Pronation 0- 80and Yes ROM-Supination 0-90; No Thenar Atrophy and No Hypothenar Atrophy Motor: EPL: 5, FDP-2: 5, 1st Dorsal Interosseous: 5 and APB: 5 Sensation: Radial: I, Ulnar: I and Median: D Supplemental Info This is an abnormal study. 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 Findings are electricallymild on the right and borderline on the left. The pathophysiology is demyelinating and compatible with the clinical diagnosis of carpal tunnel syndrome. In addition, there is no electrophysiologic evidence of superimposed cervical radiculopathy in the right upper extremity. Coding Level of Care Code Clara Uribe Diagnoses Carpal tunnel syndrome, right G56.01 Bilateral carpal tunnel syndrome G56.03 Comment 84818 and cpt inject carpal tunnel Assessment and Plan Assessment and Plan (1) Carpal tunnel syndrome, right: Status: Acute Plan: ANA MARIA JOSEPH is a 37 year old F here today for 5 months follow-up right endoscopic carpal tunnel release. Patient is doing well from that standpoint and is more interested in proceeding with left endoscopic carpal tunnel release. We did an injection related the surgery so she would prefer to try to get this done by the end of the month I will see what we can do to expedite that. For now we will sign the consent form for surgery and we will proceed with that. Pros and cons risks and benefits were discussed with the patient including but not limited to infection, pain, stiffness, bleeding, damage to surrounding structures, neurovascular injury, recurrence or retear, failure or wear of hardware or fixation, instability, fracture, deep vein thrombosis and pulmonary embolism, anesthetic risks, , patient dissatisfaction, need for further surgery and other risks. Patient understood and wished to proceed with surgery,and signed the informed consent documentation. (2) Bilateral carpal tunnel syndrome: Status: Acute Plan Details Goals & Barriers: Goals Decrease pain Decrease spasm Improve workability [facility] Medical History Abnormal EKG Alcohol use Bilateral carpal tunnel syndrome Bipolar 1 disorder Bradycardia Chest pain Chronic diarrhea Chronic neck and back pain Essential hypertension Former smoker Gastric reflux Generalized anxiety disorder GI bleed H/O emotional problems H/O hemorrhoids History of eating disorder History of echocardiogram History of Holter monitoring History of irregular heartbeat History of stress test Hx of vertigo Hypertension IBS (irritable bowel syndrome) Migraine headache Neuropathy Nonscarring hair loss Numbness and tingling in both hands Positive Tinel's sign Right ear impacted cerumen Screening for thyroid disorder Tinnitus Tinnitus, right vision problem with headache Vitamin deficiency Wears dentures Wears glasses Wears partial dentures Home Medications cetirizine 10 mg capsule (Zyrtec) 10 mg PO DAILY 02/15/20 [History Last Taken Unknown] ibuprofen 800 mg tablet 800 mg PO Q8H PRN pain 7 days #30 tabs 03/13/21 [Rx Last Taken Unknown] dicyclomine 20 mg tablet 20 mg PO TID PRN abdominal pain #180 tabs 11/16/21 [Rx Last Taken Unknown] pantoprazole 40 mg tablet,delayed release (Protonix) 40 mg PO DAILY reflux #90 tabs 02/27/22 [Rx Last Taken 06/11/23 05:00] buspirone 30 mg tablet 30 mg PO BID 90 days #180 tabs 05/28/22 [Rx Last Taken 06/11/23 05:00] Ubrelvy 100 mg tablet (ubrogepant) 100 mg PO .COMPLEX migraine headache #10 tabs1 [Rx Last Taken Unknown] cariprazine 1.5 mg capsule (Vraylar) 1.5 mg PO DAILY 11/25/22 [History Last Taken 06/11/23 05:00] eletriptan 20 mg tablet (Relpax) See Rx Instructions .Route .COMPLEX #9 tabs 11/25/22 [Rx Last Taken Unknown] erenumab-aooe 140 mg/mL subcutaneous auto-injector (Aimovig Autoinjector) 140 mgsubcut QMONTH migraines #1 mL 11/25/22 [Rx Last Taken Unknown] ondansetron HCl 4 mg tablet 4 mg PO TID PRN nausea and vomiting #90 tabs 11/25/22 [Rx Last Taken Unknown] tizanidine 4 mg tablet (Zanaflex) 8 mg (2 x 4 mg) PO QHS #60 tabs 11/25/22 [Rx Last Taken Unknown] cyanocobalamin (vitamin B-12) 100 mcg tablet (Vitamin B-12) 100 mcg PO DAILY 12/06/22 [History Last Taken Unknown] propranolol 20 mg tablet 20 mg PO DAILY BP 06/05/23 [History Last Taken 06/11/23 05:00] Allergy/AdvReac Type Severity Reaction Status Date / Time Penicillins AdvReac Severe hives Verified 06/11/23 06:56 cefaclor [From Ceclor] AdvReac Intermediate Hives Verified 06/11/23 06:56 doxycycline AdvReac Intermediate Diarrhea Verified 06/11/23 06:56 Family History Mother Hypertension Arthritis Anemia Father Diabetes Anesthesia complication Brother Brain cancer Anxiety Sister Asthma Grandmother CVA (cerebral vascular accident) Daughter Anxiety Grandfather COPD (chronic obstructive pulmonary disease) CVA (cerebral vascular accident) Other Seizures Surgical History H/O dilation and curettage History of carpal tunnel surgery of right wrist History of cholecystectomy History of hysterectomy History of right salpingo-oophorectomy History of salpingectomy History of tonsillectomy history of upper and lower scope Hx of colonoscopy Hx of esophagogastroduodenoscopy Social History household members: spouse and children number of children: 3 current occupational status: employed current occupation: [employer] history of recent travel: No sexually active: Yes Smoking Status: Former smoker alcohol intake: never substance use type: does not use caffeine: No what type of physical activity do you participate in: running frequency: 3-4 times per week seatbelt use: always do you feel safe at home: Yes additional social history: - Donald Vital Signs Vital Signs Vital Signs: 06/11/23 07:01 06/11/23 07:01 Temperature 98.3 F Temperature Source Temporal Pulse Rate 55 L Respiratory Rate 16 Respiratory Pattern Normal Blood Pressure 114/73 Blood Pressure Mean 86 Blood Pressure Source Monitor Blood Pressure Position Semi-Fowlers Blood Pressure Location Left Forearm Pulse Ox 100 Oxygen Delivery Method Room Air Weight Weight: 264 lb 1.82 oz Body Mass Index (BMI) 43.9 Results Lab / Micro Data Labs: Laboratory Results - last 24 hr 06/11/23 06:25: Urine Test Negative 06/11/23 0716 <Electronically signed by Ashkan Ortiz MD> Cosigner Signature (if applicable): CC: Dr. Ashkan Ortiz MD; [facility]~ Signed [facility] Work Phone: 1(226) 261-247804-24-2024 Procedure [facility] 12-18-2022 History and physical note Author Ashkan Ortiz [facility] December 18, 2022 8:05am Note Date/Time December 18, 2022 8 :06am [facility] Medical Records Department [address] [place] [address] History & Physical Exam 12/18/22 0805 MR#: [id number] Acct: [id number] Name: ANA MARIA JOSEPH ANN Rep #:[id number] : 1985 37 From: Ashkan Ortiz MD PCP: [facility] [place] [place] [address] HPI - General HPI Narrative ANA MARIA JOSEPH, is a 37 F who presents for right endoscopic carpal tunnel release. no changes to h and p. Patient ok to proceed, questions, rab. Wrist marked. MR#: [id number] Acct: [id number] Name: ANA MARIA JOSEPH Rep #: [id number] : 1985 Provider: Dr. Ashkan Ortiz MD Age/Sex: 37/F [place] [facility] Status: Signed Intake Vital Signs 11/25/2310:30 Height 5 ft 5 in Weight: 251 lb 6 oz BMI 41.8 BP 112/82 H Blood Pressure Location Lt brachial Position Sitting Respiration 17 Pulse 72 Pulse Source Monitor Temp 98.2 F Temp Source Temporal Pulse Oximetry (%) 97 Oxygen Delivery Method room air Intake Visit Reasons: right wrist Chief Complaint: Right wrist Accompanied by: Self Is patient in pain?: Yes Pain scale (1-10): 8 Allergies Penicillins Adverse Reaction (Severe, Verified 12/06/22 09:10) hives cefaclor [From Ceclor] Adverse Reaction (Intermediate, Verified 12/06/22 09:10) Hivesdoxycycline Adverse Reaction (Intermediate, Verified 12/06/22 09:10) Diarrhea Medications cetirizine 10 mg capsule (Zyrtec) 10 mg PO DAILY 02/15/20 [History Confirmed 12/06/22] ibuprofen 800 mg tablet 800 mg PO Q8H PRN pain 7 days #30 tabs 03/13/21 [Rx Confirmed 12/06/22] dicyclomine 20 mg tablet 20 mg PO TID PRN abdominal pain #180 tabs 11/16/21 [Rx Confirmed 12/06/22] propranolol 20 mg tablet 20 mg PO BID BP #90 tabs 02/13/22 [Rx Confirmed 12/06/22] pantoprazole 40 mg tablet,delayed release (Protonix) 40 mg PO DAILY reflux #90 tabs 02/27/22 [Rx Confirmed 12/06/22] buspirone 30 mg tablet 30 mg PO BID 90 days #180 tabs 05/28/22 [Rx Confirmed 12/06/22] Ubrelvy 100 mg tablet (ubrogepant) 100 mg PO .COMPLEX migraine headache #10 tabs1 [Rx Confirmed 12/06/22] cariprazine 1.5 mg capsule (Vraylar) 1.5 mg PO QODAY 11/25/22 [History Confirmed 12/06/22] eletriptan 20 mg tablet (Relpax) See Rx Instructions .Route .COMPLEX #9 tabs 11/25/22 [Rx Confirmed 12/06/22] erenumab-aooe 140 mg/mL subcutaneous auto-injector (Aimovig Autoinjector) 140 mgsubcut QMONTH migraines #1 mL 11/25/22 [Rx Confirmed 12/06/22] ondansetron HCl 4 mg tablet 4 mg PO TID PRN nausea and vomiting #90 tabs 11/25/22 [Rx Confirmed 12/06/22] tizanidine 4 mg tablet (Zanaflex) 8 mg (2 x 4 mg) PO QHS #60 tabs 11/25/22 [Rx Confirmed 12/06/22] cyanocobalamin (vitamin B-12) 100 mcg tablet (Vitamin B-12) 100 mcg PO DAILY 12/06/22 [History Confirmed 12/06/22] PFSH Medical History Abnormal EKG Acid reflux Alcohol use Bilateral carpal tunnel syndrome Bipolar 1 disorder Bradycardia Carpal tunnel syndrome Chest pain Chronic diarrhea Chronic headaches Chronic neck and back pain Environmental allergies Essential hypertension Former smoker Gastric reflux Generalized anxiety disorder GI bleed H/O emotional problems H/O hemorrhoids History of eating disorder History of echocardiogram History of gallstones History of Holter monitoring History of IBS History of irregular heartbeat History of stress test History of UTI Hx of vertigo Hypertension IBS (irritable bowel syndrome) Migraine headache Neuropathy Nonscarring hair loss Numbness and tingling in both hands Positive Tinel's sign Right ear impacted cerumen Screening for thyroid disorder Severe headache Tinnitus Tinnitus, right vision problem with headache Vitamin deficiency Wears dentures Wears glasses Wears partial dentures Surgical History H/O dilation and curettage History of cholecystectomy History of hysterectomy History of right salpingo-oophorectomy History of salpingectomy History of tonsillectomy history of upper and lower scope Hx of colonoscopy Hx of esophagogastroduodenoscopy Family History Mother Hypertension Arthritis AnemiaFather Diabetes Anesthesia complicationBrother Brain cancer AnxietySister AsthmaGrandmother CVA (cerebral vascular accident)Daughter AnxietyGrandfather COPD (chronic obstructive pulmonary disease) CVA (cerebral vascular accident)Other Seizures Social History household members: spouse and children number of children: 3 current occupational status: employed current occupation: [employer] history of recent travel: No sexually active: Yes Smoking Status: Former smoker alcohol intake: never substance use type: does not use caffeine: No what type of physical activity do you participate in: running frequency: 3-4 times per week seatbelt use: always do you feel safe at home: Yes additional social history: - Donald LONG right wrist Details: Parts of this documentation were recorded by a scribe, this documentation accurately reflects the service provided and the decisions made by me, Dr. Guillermo MD 12/06/22 3207. ANA MARIA JOSEPH is a 37 year old F here today for FU bilat CTS. Worse on the right. RHD. Some tingling worse at work. Ortho Exam General General: Yes no acute distress Neurologic: Yes alert and Yes oriented x3 Psychologic: Yes reasonable and appropriate Right Wrist/Hand Skin/Wound: Yes CDI, No Swelling, No Ecchymosis and Yes capillary refill normal Right Wrist: Yes ROM-Extension 0-60, ROM-Flexion 0-80, ROM-Pronation 0-80, ROM-Supination 0-90, Tinel's and Phalen's Motor: EPL: 5, FDP-2: 5, 1st Dorsal Interosseous: 5 and APB: 4 Sensation: Radial: I, Ulnar: I and Median: D Left Wrist/Hand Skin/Wound: No Swelling and No Ecchymosis Supplemental Info This is an abnormal study. 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 Findings are electricallymild on the right and borderline on the left. The pathophysiology is demyelinating and compatible with the clinical diagnosis of carpal tunnel syndrome. In addition, there is no electrophysiologic evidence of superimposed cervical radiculopathy in the right upper extremity. Coding Level of Care Code Off vis,est,level 3 Diagnoses Carpal tunnel syndrome, right G56.01 Assessment and Plan Assessment and Plan (1) Carpal tunnel syndrome, right: Status: Acute Plan: 37-year-old female right carpal tunnel syndrome. Patient had a prior discussionwith risks and benefits pros and cons of nonoperative versus surgical managementof this problem. Again discussed these. They wish to go ahead with right endoscopic carpal tunnel release. We discussed the recovery associated with this 2 weeks to remove the sutures 6 weeks of avoiding heavy lifting and gripping with the hand. They understand no further questions and wished to go ahead with right endoscopic carpal tunnel release. Pros and cons risks and benefits were discussed with the patient including but not limited to infection, pain, stiffness, bleeding, damage to surrounding structures, neurovascular injury, recurrence or retear, failure or wear of hardware or fixation, instability, fracture, deep vein thrombosis and pulmonary embolism, anesthetic risks, , patient dissatisfaction, need for further surgery and other risks. Patient understood and wished to proceed with surgery,and signed the informed consent documentation. [facility] Medical History Abnormal EKG Acid reflux Alcohol use Bilateral carpal tunnel syndrome Bipolar 1 disorder Bradycardia Carpal tunnel syndrome Chest pain Chronic diarrhea Chronic headaches Chronic neck and back pain Environmental allergies Essential hypertension Former smoker Gastric reflux Generalized anxiety disorder GI bleed H/O emotional problems H/O hemorrhoids History of eating disorder History of echocardiogram History of gallstones History of Holter monitoring History of IBS History of irregular heartbeat History of stress test History of UTI Hx of vertigo Hypertension IBS (irritable bowel syndrome) Migraine headache Neuropathy Nonscarring hair loss Numbness and tingling in both hands Positive Tinel's sign Right ear impacted cerumen Screening for thyroid disorder Severe headache Tinnitus Tinnitus, right vision problem with headache Vitamin deficiency Wears dentures Wears glasses Wears partial dentures Home Medications cetirizine 10 mg capsule (Zyrtec) 10 mg PO DAILY 02/15/20 [History Last Taken Unknown] ibuprofen 800 mg tablet 800 mg PO Q8H PRN pain 7 days #30 tabs 03/13/21 [Rx Last Taken Unknown] dicyclomine 20 mg tablet 20 mg PO TID PRN abdominal pain #180 tabs 11/16/21 [Rx Last Taken Unknown] propranolol 20 mg tablet 20 mg PO BID BP #90 tabs 02/13/22 [Rx Last Taken 12/18/22] pantoprazole 40 mg tablet,delayed release (Protonix) 40 mg PO DAILY reflux #90 tabs 02/27/22 [Rx Last Taken 12/18/22] buspirone 30 mg tablet 30 mg PO BID 90 days #180 tabs 05/28/22 [Rx Last Taken Unknown] Ubrelvy 100 mg tablet (ubrogepant) 100 mg PO .COMPLEX migraine headache #10 tabs1 [Rx Last Taken Unknown] cariprazine 1.5 mg capsule (Vraylar) 1.5 mg PO QODAY 11/25/22 [History Last Taken Unknown] eletriptan 20 mg tablet (Relpax) See Rx Instructions .Route .COMPLEX #9 tabs 11/25/22 [Rx Last Taken Unknown] erenumab-aooe 140 mg/mL subcutaneous auto-injector (Aimovig Autoinjector) 140 mgsubcut QMONTH migraines #1 mL 11/25/22 [Rx Last Taken Unknown] ondansetron HCl 4 mg tablet 4 mg PO TID PRN nausea and vomiting #90 tabs 11/25/22 [Rx Last Taken Unknown] tizanidine 4 mg tablet (Zanaflex) 8 mg (2 x 4 mg) PO QHS #60 tabs 11/25/22 [Rx Last Taken Unknown] cyanocobalamin (vitamin B-12) 100 mcg tablet (Vitamin B-12) 100 mcg PO DAILY 12/06/22 [History Last Taken Unknown] Allergy/AdvReac Type Severity Reaction Status Date / Time Penicillins AdvReac Severe hives Verified 12/06/22 09:10 cefaclor [From [facility]] AdvReac Intermediate Hives Verified 12/06/22 09:10 doxycycline AdvReac Intermediate Diarrhea Verified 12/06/22 09:10 Family History Mother Hypertension Arthritis Anemia Father Diabetes Anesthesia complication Brother Brain cancer Anxiety Sister Asthma Grandmother CVA (cerebral vascular accident) Daughter Anxiety Grandfather COPD (chronic obstructive pulmonary disease) CVA (cerebral vascular accident) Other Seizures Surgical History H/O dilation and curettage History of cholecystectomy History of hysterectomy History of right salpingo-oophorectomy History of salpingectomy History of tonsillectomy history of upper and lower scope Hx of colonoscopy Hx of esophagogastroduodenoscopy Social History household members: spouse and children number of children: 3 current occupational status: employed current occupation: [employer] history of recent travel: No sexually active: Yes Smoking Status: Former smoker alcohol intake: never substance use type: does not use caffeine: No what type of physical activity do you participate in: running frequency: 3-4 times per week seatbelt use: always do you feel safe at home: Yes additional social history: - Donald Vital Signs Vital Signs Vital Signs: 12/18/22 07:26 12/18/22 07:28 Temperature 97.6 F L Temperature Source Temporal Pulse Rate 56 L Respiratory Rate 16 Respiratory Pattern Normal Blood Pressure 110/59 L Blood Pressure Mean 76 Blood Pressure Source Monitor Blood Pressure Position Semi-Fowlers Blood Pressure Location Right Arm Pulse Ox 100 Oxygen Delivery Method Room Air Weight Weight: 255 lb 11.779 oz Body Mass Index (BMI) 42.5 12/18/22 0805 <Electronically signed by Ashkan Ortiz MD> Cosigner Signature (if applicable): CC: Dr. Ashkan Ortiz MD; [facility]~ Signed [facility] Work Phone: 1(995) 225-718711-01-2023 Procedure [facility] Discharge summary Author Ashkan Ortiz [facility] December 18, 2022 9:08am Note Date/Time December 18, 2022 9 :08am [facility] Medical Records Department [address] [place] [address] Instructions for Home/Discharge Instructions 12/18/22906 MR#: [id number] Acct: [id number] Name: ANA MARIA JOSEPH ANN Rep #:[id number] : 1985 37 From: Ashkan Ortiz MD PCP: [facility] [place] [place]charge Instructions Diet Discharge Diet: No restrictions Activity Lifting Restrictions: no heavy lifting or gripping Keep extremity elevated above heart level: Operative Extremity Dressing / Incision Call your doctor if your incision/area has: Continuous Slow Oozing, Sudden Increased Bleeding, Increased Pain/ Swelling, Increased Redness, Foul Smelling Discharge and Swelling at the incision site Change Dressing in: leave in place till F/U Follow Up Care Please Follow Up With: Ashkan Ortiz MD When: 2 days Test Results: Test results from this visit will be discussed in further detail at your follow- up appointment, if applicable. Discharge Plan Admission Attending Provider: Ashkan Ortiz [facility] Orders/Prescriptions Prescriptions: No Action dicyclomine 20 mg tablet 20 mg PO TID PRN (Reason: abdominal pain) Qty: 180 3RF pantoprazole [Protonix] 40 mg tablet,delayed release (DR/EC) 40 mg PO DAILY Qty: 90 3RF Vraylar 1.5 mg capsule 1.5 mg PO QODAY eletriptan [Relpax] 20 mg tablet See Rx Instructions .ROUTE .COMPLEX Qty: 9 2RF Rx Instructions: Take 1 tablet PO every 2 hours as needed for headache up to 2 tablets per day Ubrelvy 100 mg tablet 100 mg PO .COMPLEX Qty: 10 4RF Rx Instructions: Take 1 tablet orally every 2 hours as needed for headache up to 2 tablets daily Aimovig Autoinjector 140 mg/mL auto-injector 140 mg subcut QMONTH Qty: 1 10RF ondansetron HCl 4 mg tablet 4 mg PO TID PRN (Reason: nausea and vomiting) Qty: 90 8RF tizanidine [Zanaflex] 4 mg tablet 8 mg PO QHS Qty: 60 10RF Zyrtec 10 mg capsule 10 mg PO DAILY ibuprofen 800 mg tablet 800 mg PO Q8H PRN (Reason: pain) 7 Days Qty: 30 0RF cyanocobalamin (vitamin B-12) [Vitamin B-12] 100 mcg tablet 100 mcg PO DAILY propranolol 20 mg tablet 20 mg PO BID Qty: 90 3RF buspirone 30 mg tablet 30 mg PO BID 90 Days Qty: 180 1RF Referrals / Follow Up: Ashkan Ortiz MD [Med Staff - Active Staff[facility] - Disposition Disposition (needs filled in before D/C Order can be placed): Home, Self Care 12/18/22 0908<Electronically signed by Ashkan Ortiz MD>Ashkan Ortiz MD CC: [facility] ~ Signed [facility] Work Phone: Discharge summary Author Ashkan Ortiz [facility] June 11, 2023 8:07am Note Date/Time June 11, 2023 8:0 7am [facility] Medical Records Department [address] [place] [address] Instructions for Home/Discharge Instructions 06/11/23 0806 MR#: [id number] Acct: [id number] Name: ANA MARIA JOSEPH ANN Rep #:[id number] : 1985 37 From: Ashkan Ortiz MD PCP: [facility] St atus:[facility] [place] Discharge Instructions Diet Discharge Diet: No restrictions Activity Discharge Activity: Return to Normal Activity Lifting Restrictions: no heavy lifting, or gripping, no lifting over 1 pound L arm Keep extremity elevated above heart level: Operative Extremity Dressing / Incision Call your doctor if your incision/area has: Continuous Slow Oozing, Sudden Increased Bleeding, Increased Pain/ Swelling, Increased Redness, Foul Smelling Discharge and Swelling at the incision site Remove Dressing in: leave in place till F/U Cleanse incision/area with: Do not get Incision Wet Additional Dressing/Incision Instructions:: OK to change dressing if needed, keep covered 2 weeks. Follow Up Care Please Follow Up With: Ashkan Ortiz MD When: 2 days Test Results: Test results from this visit will be discussed in further detail at your follow- up appointment, if applicable. Discharge Plan Admission Attending Provider: Ashkan Ortiz Primary Care Provider: [facility] Discharge Orders/Prescriptions Prescriptions: No Action dicyclomine 20 mg tablet 20 mg PO TID PRN (Reason: abdominal pain) Qty: 180 3RF pantoprazole [Protonix] 40 mg tablet,delayed release (DR/EC) 40 mg PO DAILY Qty: 90 3RF Vraylar 1.5 mg capsule 1.5 mg PO DAILY eletriptan [Relpax] 20 mg tablet See Rx Instructions .ROUTE .COMPLEX Qty: 9 2RF Rx Instructions: Take 1 tablet PO every 2 hours as needed for headache up to 2 tablets per day Ubrelvy 100 mg tablet 100 mg PO .COMPLEX Qty: 10 4RF Rx Instructions: Take 1 tablet orally every 2 hours as needed for headache up to 2 tablets daily Aimovig Autoinjector 140 mg/mL auto-injector 140 mg subcut QMONTH Qty: 1 10RF ondansetron HCl 4 mg tablet 4 mg PO TID PRN (Reason: nausea and vomiting) Qty: 90 8RF tizanidine [Zanaflex] 4 mg tablet 8 mg PO QHS Qty: 60 10RF Zyrtec 10 mg capsule 10 mg PO DAILY ibuprofen 800 mg tablet 800 mg PO Q8H PRN (Reason: pain) 7 Days Qty: 30 0RF cyanocobalamin (vitamin B-12) [Vitamin B-12] 100 mcg tablet 100 mcg PO DAILY propranolol 20 mg tablet 20 mg PO DAILY buspirone 30 mg tablet 30 mg PO BID 90 Days Qty: 180 1RF Referrals / Follow Up: [facility] [Primary Care Provider] - Ashkan Ortiz MD [Med Staff - Active Staff] - Disposition Disposition (needs filled in before D/C Order can be placed): Home, Self Care 06/11/23 0807<Electronically signed by Ashkan Ortiz MD>Ashkan Ortiz MD CC: [facility] ~ Signed [facility] Work Phone: evaluation note* Diagnosis Onset Date Resolution Status Bilateral carpal tunnel syndrome acute Anxiety noneactive Encounter for preventative a dult health care examination noneactive [facility] Work Phone: evaluation note* Diagnosis Onset Date Resolution Status Bilateral carpal tunnel syndrome acute Anxiety noneactive Encounter for preventative a dult health care examination noneactive Anxiety noneactive Dysuria noneactive Segmental and somatic dysfunction of cervical region acute Segmental and somatic dysfunction of lumbar region acute Segmental and somatic dysfunction of pelvic region acute Segmental and somatic dysfunction of thoracic region acute [facility] Work Phone: evaluation note* Diagnosis Onset Date Resolution Status Anxiety noneactive Dysuria noneactive Segmental and somatic dysfunction of cervical region acute Segmental and somatic dysfunction of lumbar region acute Segmental and somatic dysfunction of pelvic region acute Segmental and somatic dysfunction of thoracic region acute Segmental and somatic dysfunction of cervical region acute Segmental and somatic dysfunction of lumbar region acute Segmental and somatic dysfunction of pelvic region acute Segmental and somatic dysfunction of thoracic region acute Segmental and somatic dysfunction of cervical region acute Segmental and somatic dysfunction of lumbar region acute Segmental and somatic dysfunction of pelvic region acute Segmental and somatic dysfunction of thoracic region acute Cervicalgia chronic Migraine chronic Segmental and somatic dysfunction of cervical region acute Segmental and somatic dysfunction of lumbar region acute Segmental and somatic dysfunction of pelvic region acute Segmental and somatic dysfunction of thoracic region acute Encounter for routine gynecological examination noneactive [facility] Work Phone: Evaluation note* Diagnosis Onset Date Resolution Status Encounter for routine gynecological examination noneactive Essential hypertension acute Generalized anxiety disorder acute Vitamin deficiency acute [facility] Work Phone: Evaluation note* Diagnosis Onset Date Resolution Status Essential hypertension acute Generalized anxiety disorder acute Vitamin deficiency acute [facility] Work Phone: Evaluation note* Diagnosis Onset Date Resolution Status Carpal tunnel syndrome, right acute Carpal tunnel syndrome, right acute [facility] Work Phone: Evaluation note* Diagnosis Onset Date Resolution Status Cervicalgia chronic Migraine chronic Carpal tunnel syndrome, right acute Carpal tunnel syndrome, right acute Carpal tunnel syndrome, right acute Bilateral carpal tunnel syndrome acute Segmental and somatic dysfunction of cervical region acute Segmental and somatic dysfunction of lumbar region acute Segmental and somatic dysfunction of pelvic region acute Segmental and somatic dysfunction of thoracic region acute Carpal tunnel syndrome, right acute [facility] Work Phone: Evaluation note* Diagnosis Onset Date Resolution Status Cervicalgia chronic Migraine chronic Carpal tunnel syndrome, right acute Carpal tunnel syndrome, right acute Carpal tunnel syndrome, right acute Bilateral carpal tunnel syndrome acute Segmental and somatic dysfunction of cervical region acute Segmental and somatic dysfunction of lumbar region acute Segmental and somatic dysfunction of pelvic region acute Segmental and somatic dysfunction of thoracic region acute Carpal tunnel syndrome, right acute Mastodynia of right breast a cute [facility] Work Phone: Evaluation note* Diagnosis Onset Date Resolution Status Segmental and somatic dysfunction of cervical region acute Segmental and somatic dysfunction of lumbar region acute Segmental and somatic dysfunction of pelvic region acute Segmental and somatic dysfunction of thoracic region acute Carpal tunnel syndrome, right acute Mastodynia of right breast a cute Mastodynia of right breast a cute Musculoskeletal pain acute [facility] Work Phone: Evaluation note* Diagnosis Onset Date Resolution Status Mastodynia of right breast a cute Mastodynia of right breast a cute Musculoskeletal pain acute Bilateral carpal tunnel syndrome acute Carpal tunnel syndrome, right acute Encounter for routine gynecological examination noneactive Bilateral carpal tunnel syndrome acute [facility] Work Phone: Evaluation note* Diagnosis Onset Date Resolution Status Mastodynia of right breast a cute Musculoskeletal pain acute Bilateral carpal tunnel syndrome acute Carpal tunnel syndrome, right acute Encounter for routine gynecological examination noneactive Bilateral carpal tunnel syndrome acute Bilateral carpal tunnel syndrome acute Bilateral carpal tunnel syndrome acute Numbness and tingling in both hands chronic [facility] Work Phone: Evaluation note* Diagnosis Onset Date Resolution Status Admit Date Cervicalgia chronic October 2:33pm Migraine chronic October 26, 2024 2:33pm [facility] Work Phone: Hospital Discharge instructionsAdditional Instructions Recommend gluten-free diet to see if this helps you with your bradycardia and chest discomfortW[facility] Work Phone: Reason for referral (narrative)No reason for referral information availableWGuernsey Memorial Hospital Work Phone: Chief Complaint and Reason for Visit Chief Complaint [employer] Bilat hands chk up ekg for symptomatic kenia per [employer] DIZZINESS Reason for Visit Bilateral carpal fidencio narayan syndrome Anxiety Encounter for preventative adult health care examination Chief Complaint Bilat hands chk up ekg for symptomatic kenia per [employer] DIZZINESS BRADYCARDIA 3 M FU Neck pain Reason for Visit Bilateral carpal fidencio narayan syndrome Anxiety Encounter for preventative adult health care examination Anxiety Dysuria Segmental and somatic dysfunction of cervical region Segmental and somatic dysfunction of lumbar region Segmental and somatic dysfunction of pelvic region Segmental and somatic dysfunction of thoracic region Chief Complaint ekg for symptomatic kenia per [employer] DIZZINESS BRADYCARDIA 3 M FU Neck pain Back pain Back pain 6 M FU Back pain Annual ([employer]) E-ORDER N/V/D Reason for Visit Anxiety Dysuria Segmental and somatic dysfunction of cervical region Segmental and somatic dysfunction of lumbar region Segmental and somatic dysfunction of pelvic region Segmental and somatic dysfunction of thoracic region Segmental and somatic dysfunction of cervical region Segmental and somatic dysfunction of lumbar region Segmental and somatic dysfunction of pelvic region Segmental and somatic dysfunction of thoracic region Segmental and somatic dysfunction of cervical region Segmental and somatic dysfunction of lumbar region Segmental and somatic dysfunction of pelvic region Segmental and somatic dysfunction of thoracic region Cervicalgia Migraine Segmental and somatic dysfunction of cervical region Segmental and somatic dysfunction of lumbar region Segmental and somatic dysfunction of pelvic region Segmental and somatic dysfunction of thoracic region Encounter for routine gynecological examination Chief Complaint BRADYCARDIA 3 M FU Neck pain Back pain Back pain 6 M FU Back pain Annual ([employer]) E-ORDER N/V/D SCREENING Reason for Visit Anxiety Dysuria Segmental and somatic dysfunction of cervical region Segmental and somatic dysfunction of lumbar region Segmental and somatic dysfunction of pelvic region Segmental and somatic dysfunction of thoracic region Segmental and somatic dysfunction of cervical region Segmental and somatic dysfunction of lumbar region Segmental and somatic dysfunction of pelvic region Segmental and somatic dysfunction of thoracic region Segmental and somatic dysfunction of cervical region Segmental and somatic dysfunction of lumbar region Segmental and somatic dysfunction of pelvic region Segmental and somatic dysfunction of thoracic region Cervicalgia Migraine Segmental and somatic dysfunction of cervical region Segmental and somatic dysfunction of lumbar region Segmental and somatic dysfunction of pelvic region Segmental and somatic dysfunction of thoracic region Encounter for routine gynecological examination Chief Complaint Annual ([employer]) E-ORDER N/V/D SCREENING 4 mu fu Reason for Visit Encounter for routin e gynecological examination Essential hypertension Generalized anxiety disorder Vitamin deficiency Chief Complaint N/V/D SCREENING 4 mu fu Ear pain, swelling Reason for Visit Essential hypertensi on Generalized anxiety disorder Vitamin deficiency Chief Complaint 4 mu fu Ear pain, swelling 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 INT LABS STOOL NUMBER 2 Reason for Visit Essential hypertensi on Generalized anxiety disorder Vitamin deficiency Chief Complaint 4 mu fu Ear pain, swelling 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 INT LABS STOOL NUMBER 2 STOOL NUMBER 3 Reason for Visit Essential hypertensi on Generalized anxiety disorder Vitamin deficiency Chief Complaint 4 mu fu Ear pain, swelling 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 INT LABS STOOL NUMBER 2 STOOL NUMBER 3 8 MO FU Reason for Visit Essential hypertensi on Generalized anxiety disorder Vitamin deficiency Chief Complaint Ear pain, swelling 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 INT LABS STOOL NUMBER 2 STOOL NUMBER 3 8 MO FU right wrist Endoscopic Carpal Tunnel Release Endoscopic Carpal Tunnel Release Reason for Visit Carpal tunnel syndro me, right Carpal tunnel syndrome, right Chief Complaint 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 INT LABS STOOL NUMBER 2 STOOL NUMBER 3 8 MO FU right wrist Endoscopic Carpal Tunnel Release Endoscopic Carpal Tunnel Release right wrist right wrist Back pain RIGHT WRIST Reason for Visit Cervicalgia Migraine Carpal tunnel syndrome, right Carpal tunnel syndrome, right Carpal tunnel syndrome, right Bilateral carpal tunnel syndrome Segmental and somatic dysfunction of cervical region Segmental and somatic dysfunction of lumbar region Segmental and somatic dysfunction of pelvic region Segmental and somatic dysfunction of thoracic region Carpal tunnel syndrome, right Chief Complaint INT LABS STOOL NUMBER 2 STOOL NUMBER 3 8 MO FU right wrist Endoscopic Carpal Tunnel Release Endoscopic Carpal Tunnel Release right wrist right wrist Back pain RIGHT WRIST breast swollen/nipple red RT BREAST PAIN/TENDERNESS, SWOLLEN NIPPLE Reason for Visit Cervicalgia Migraine Carpal tunnel syndrome, right Carpal tunnel syndrome, right Carpal tunnel syndrome, right Bilateral carpal tunnel syndrome Segmental and somatic dysfunction of cervical region Segmental and somatic dysfunction of lumbar region Segmental and somatic dysfunction of pelvic region Segmental and somatic dysfunction of thoracic region Carpal tunnel syndrome, right Mastodynia of right breast Chief Complaint Back pain RIGHT WRIST breast swollen/nipple red RT BREAST PAIN/TENDERNESS, SWOLLEN NIPPLE breast pain/swelling MIGRAINE Reason for Visit Segmental and somati c dysfunction of cervical region Segmental and somatic dysfunction of lumbar region Segmental and somatic dysfunction of pelvic region Segmental and somatic dysfunction of thoracic region Carpal tunnel syndrome, right Mastodynia of right breast Mastodynia of right breast Musculoskeletal pain Chief Complaint breast swollen/nippl e red RT BREAST PAIN/TENDERNESS, SWOLLEN NIPPLE breast pain/swelling MIGRAINE LEFT WRIST Annual ([employer]) Left Endoscopic Carpal Tunnel Relea Left Endoscopic Carpal Tunnel Relea Reason for Visit Mastodynia of right breast Mastodynia of right breast Musculoskeletal pain Bilateral carpal tunnel syndrome Carpal tunnel syndrome, right Encounter for routine gynecological examination Bilateral carpal tunnel syndrome Chief Complaint breast pain/swelling MIGRAINE LEFT WRIST Annual ([employer]) Left Endoscopic Carpal Tunnel Relea Left Endoscopic Carpal Tunnel Relea left wrist wrists Reason for Visit Mastodynia of right breast Musculoskeletal pain Bilateral carpal tunnel syndrome Carpal tunnel syndrome, right Encounter for routine gynecological examination Bilateral carpal tunnel syndrome Bilateral carpal tunnel syndrome Bilateral carpal tunnel syndrome Numbness and tingling in both hands Chief Complaint Admit Date LEFT WRIST February 10, 2024 11:05am leg edema/pain March 29, 2024 6:56pm Lumps in breasts April 09, 2024 9:05am BILAT BREAST LUMP April 30, 2024 9:1 6am L THIGH BURNING RX HERE May 11, 2024 11:00am LEFT LEG May 11, 2024 1:2 9pm pain thigh numbness- LEFT HIP, LUMBAR [facility] 2024 1:54pm Reason for Visit Admit Date Bilateral carpal tunnel syndrome Decembe r 2023 11:05am Breast pain April 09, 2024 9:05am Meralgia paresthetica May 11, 2024 1 :29pm Chief Complaint Admit Date leg edema/pain March 29, 2024 6:56pm Lumps in breasts April 09, 2024 9:05am BILAT BREAST LUMP April 30, 2024 9:1 6am L THIGH BURNING RX HERE May 11, 2024 11:00am LEFT LEG May 11, 2024 1:2 9pm pain thigh numbness- LEFT HIP, LUMBAR [facility] 2024 1:54pm LEFT THIGH MERALGIA PARESTHETICA (LFCN) June 08, 2024 8:35am LEFT THIGH MERALGIA PARESTHETICA (LFCN) June 08, 2024 9:50am Annual ([employer]) June 14, 2024 12: 57pm Reason for Visit Admit Date Breast pain April 09, 2024 9:05am Meralgia paresthetica May 11, 2024 1 :29pm Encounter for routine gynecological exam ination June 14, 2024 12:57pm Chief Complaint Admit Date leg edema/pain March 29, 2024 6:56pm Lumps in breasts April 09, 2024 9:05am BILAT BREAST LUMP April 30, 2024 9:1 6am L THIGH BURNING RX HERE May 11, 2024 11:00am LEFT LEG May 11, 2024 1:2 9pm pain thigh numbness- LEFT HIP, LUMBAR [facility] 2024 1:54pm LEFT THIGH MERALGIA PARESTHETICA (LFCN) June 08, 2024 8:35am LEFT THIGH MERALGIA PARESTHETICA (LFCN) June 08, 2024 9:50am Annual ([employer]) June 14, 2024 12: 57pm LEFT HIP PAIN June 17, 2024 6:00pm Chief Complaint Admit Date L THIGH BURNING RX HERE May 11, 2024 11:00am LEFT LEG May 11, 2024 1:2 9pm pain thigh numbness- LEFT HIP, LUMBAR [facility] 2024 1:54pm LEFT THIGH MERALGIA PARESTHETICA (LFCN) June 08, 2024 8:35am LEFT THIGH MERALGIA PARESTHETICA (LFCN) June 08, 2024 9:50am Annual ([employer]) June 14, 2024 12: 57pm LEFT HIP PAIN June 17, 2024 6:00pm chest pain September 07, 2024 11:1 5am Reason for Visit Admit Date Meralgia paresthetica May 11, 2024 1 :29pm Encounter for routine gynecological exam ination June 14, 2024 12:57pm Chief Complaint Admit Date LEFT THIGH MERALGIA PARESTHETICA (LFCN) June 08, 2024 8:35am LEFT THIGH MERALGIA PARESTHETICA (LFCN) June 08, 2024 9:50am Annual ([employer]) June 14, 2024 12: 57pm LEFT HIP PAIN June 17, 2024 6:00pm chest pain September 07, 2024 11:1 5am Reason for Visit Admit Date Encounter for routine gynecological exam ination June 14, 2024 12:57pm Chief Complaint Admit Date chest pain September 07, 2024 11:1 5am 1 Y FU October 26, 2024 2:33pm Reason for Visit Admit Date Cervicalgia October 26, 2024 2:33pm Migraine October 26, 2024 2:33pm Family History No Family History Records Found Relationship Condition Age at Onset Recorded Date/T susan Not Specified Seizure Unknown mother Hypertension Unknown Arthritis Unknown Anemia Unknown father Diabetes mellitus Unknown Complication of anesthesia Unknown brother Malignant neoplasm of brain Unknown Anxiety Unknown sister Asthma Unknown grandmother Cerebrovascular accident (CVA) Unknown daughter Anxiety Unknown grandfather Chronic obstructive pulmonary disease Unk nown Cerebrovascular accident (CVA) Unknown Advance Directives No Advanced Directives Records Found Advance Directive Response Recorded Date/ Time Living Will No February 13, 2 022 2:42pm Power of Police Crime Scene Technician No February 13, 2022 2:42pm Advance Directive Response Recorded Date/ Time Living Will No June 07, 2022 10:27pm Power of Police Crime Scene Technician No June 07 10:27pm Advance Directive Response Recorded Date/ Time Living Will No September 29 9:50pm Power of Police Crime Scene Technician No September 29, 2 023 9:50pm Advance Directive Response Recorded Date/ Time Living Will No December 06 8:43am Power of Police Crime Scene Technician No December 06, 2022 8:43am Advance Directive Response Recorded Date/ Time Living Will No December 06 7:43am Power of Police Crime Scene Technician No December 06, 2022 7:43am Advance Directive Response Recorded Date/ Time Living Will No May 05, 2023 10:18pm Power of Police Crime Scene Technician No May 04 10:18pm Advance Directive Response Recorded Date/ Time Living Will No June 05, 2023 8:24am Power of Police Crime Scene Technician No June 04 8:24am Advance Directive Response Recorded Date/ Time Living Will No November 23 10:42am Do you have a Healthcare Power of Police Crime Scene Technician? No November 24, 2023 10:42am Living Will No March 29 10:00pm Do you have a Healthcare Power of Police Crime Scene Technician? No March 29, 2024 10:00pm Advance Directive Response Recorded Date/ Time Living Will No March 29 10:00pm Do you have a Healthcare Power of Police Crime Scene Technician? No March 29, 2024 10:00pm Advance Directive Response Recorded Date/ Time Do you have a Healthcare Power of Police Crime Scene Technician? No September 07, 2024 11:23am Advance Directive Response Recorded Date/ Time Living Will No June 05, 2023 8:24am Do you have a Healthcare Power of Police Crime Scene Technician? No June 05, 2023 8:24am Do you have a Healthcare Power of Police Crime Scene Technician? No September 07, 2024 11:23am Summary Purpose Additional Source Comments Care Teams (unrecognized sec tion and content) Team Status: Active Member Role Status Dates Dr. Raymond Arteaga III, MD Family Provider Active Dr. Grisel Solares MD Primary Care Provider Active Team Status: Inactive Member Role Status Dates Dr. Grisel Solares MD Primary Care Provider, Refer ring Provider Active Ashkan Ortiz MD Attending Provider Active Team Status: Inactive Member Role Status Dates Dr. Grisel Solares MD Primary Care Provider, Refer ring Provider Active Angus Batista NP, METAL FURNACE OPERATOR-C Attending Provider Active Team Status: Inactive Member Role Status Dates Dr. Grisel Solares MD Primary Care Provider, Refer ring Provider Active Dr. Carlton Douglas MD Attending Provider Active Team Status: Inactive Member Role Status Dates Dr. Grisel Solares MD Primary Care Provider, Refer ring Provider Active Dr. Katharine Madden DC Attending Provider Active Team Status: Inactive Member Role Status Dates Dr. Grisel Solares MD Primary Care Provider Active Angus Batista METAL FURNACE OPERATOR, METAL FURNACE OPERATOR-C Attending Provider, Referring Prov ider Active Team Status: Inactive Member Role Status Dates Dr. Grisel Solares MD Primary Care Provider Active Dr. Carlton Douglas MD Attending Provider, Referring Provider Active Team Status: Inactive Member Role Status Dates Dr. Grisel Solares MD Primary Care Provider Active Dr. Liang Shin MD Attending Provider, Emergency Provider Active Team Status: Active Member Role Status Dates Dr. Grisel Solares MD Primary Care Provider Active Angus Batista METAL FURNACE OPERATOR, METAL FURNACE OPERATOR-C Attending Provider, Referring Prov ider Active Team Status: Inactive Member Role Status Dates Dr. Grisel Solares MD Primary Care Provider, Refer ring Provider Active Dr. Ana Maria Walker DO Attending Provider Activ e Team Status: Inactive Member Role Status Dates Dr. Grisel Solares MD Primary Care Provider, Refer ring Provider Active Dr. Harry Fernandes MD Attending Provider Active Team Status: Inactive Member Role Status Dates Dr. Grisel Solares MD Primary Care Provider Active Dr. Ana Maria Walker DO Attending Provider, Refe rring Provider Active Team Status: Inactive Member Role Status Dates Dr. Grisel Solares MD Primary Care Provider Active Dr. Cuco Edge DO Emergency Provider Active Team Status: Inactive Member Role Status Dates Dr. Grisel Solares MD Primary Care Provider Active Dr. Cuco Edge DO Attending Provider, Emergency Pr ovider Active Team Status: Inactive Member Role Status Dates Dr. Grisel Solares MD Primary Care Provider Active Dr. Vince Amos DO Emergency Provider Active Team Status: Active Member Role Status Dates Dr. Raymond Arteaga III, MD Family Provider Active [facility] Primary Care Provider A ctive Team Status: Inactive Member Role Status Dates Dr. Grisel Solares MD Primary Care Provider Active Dr. Vince Amos DO Attending Provider, Emergency P rovider Active Team Status: Active Member Role Status Dates [facility] Primary Care Provider A ctive Angus Batista VSC, METAL FURNACE OPERATOR-C Attending Provider, Referring Pro vider Active Team Status: Active Member Role Status Dates Angus Batista VSC, METAL FURNACE OPERATOR-C Primary Care Provider Active [facility] Risk [facility] Attending Provider, Referring P rovider Active Team Status: Inactive Member Role Status Dates Angus Batista VSC, METAL FURNACE OPERATOR-C Primary Care Provider Active Dr. Ana Maria Walker DO Attending Provider, Refe rring Provider Active Team Status: Inactive Member Role Status Dates Angus Lester VSC, METAL FURNACE OPERATOR-C Attending Provider, Referring Pro vider Active [facility] Primary Care Provider A ctive Team Status: Active Member Role Status [facility] Primary C are Provider, Attending Provider, Referring Provider Active Angus Batista VSC, METAL FURNACE OPERATOR-C Other Provider Active Team Status: Inactive Member Role Status Dates [facility] Primary Care Provider A ctive Angus Batista VSC, METAL FURNACE OPERATOR-C Attending Provider, Referring Pro vider Active Team Status: Active Member Role Status Dates [facility] Primary Care Provider A ctive Angus Batista VSC, METAL FURNACE OPERATOR-C Attending Provider Active Angus Batista METAL FURNACE OPERATOR, METAL FURNACE OPERATOR-C Referring Provider Active Team Status: Inactive Member Role Status Dates Dr. Grisel Solares MD Referring Provider Active Dr. Harry Fernandes MD Attending Provider Active [facility] Primary Care Provider A ctive Team Status: Inactive Member Role Status [facility] Primary C are Provider, Attending Provider, Referring Provider Active Angus Batista VSC, METAL FURNACE OPERATOR-C Other Provider Active Team Status: Inactive Member Role Status [facility] Primary Care Provider A ctive Angus Batista VSC, METAL FURNACE OPERATOR-C Attending Provider Active Angus Batista METAL FURNACE OPERATOR, METAL FURNACE OPERATOR-C Referring Provider Active Team Status: Inactive Member Role Status [facility] Primary Care Provider, Referring Provider Active Ashkan Ortiz MD Attending Provider Active Team Status: Active Member Role Status Dates [facility] Primary Care Provider A ctive Ashkan Ortiz MD Attending Provider, Other Provider Active Team Status: Inactive Member Role Status Dates [facility] Primary Care Provider A ctive Ashkan Ortiz MD Attending Provider Active Team Status: Inactive Member Role Status [facility] Primary Care Provider, Referring Provider Active Dr. Katharine Madden DC Attending Provider Active Team Status: Inactive Member Role Status [facility] Primary Care Provider, Referring Provider Active Francesca Arthur CNM Attending Provider Active Team Status: Active Member Role Status Dates [facility] Primary Care Provider A ctive Francesca Arthur , CNM Attending Provider, Referring Pr ovider Active Team Status: Inactive Member Role Status Dates [facility] Primary Care Provider A ctive Francesca Arthur CNM Attending Provider, Referring Pr ovider Active Team Status: Inactive Member Role Status Dates [facility] Primary Care Provider, Referring Provider Active Lindy Castaneda NP, METAL FURNACE OPERATOR-C Attending Provider Active Team Status: Inactive Member Role Status Dates [facility] Primary Care Provider A ctive Dr. Jani Coronado , Emergency Provider Active Team Status: Inactive Member Role Status Dates Dr. Grisel Solares MD Referring Provider Active Dr. Ana Maria Walker DO Attending Provider Activ e [facility] Primary Care Provider A ctive Team Status: Active Member Role Status Dates [facility] Primary Care Provider A ctive Ashkan Ortiz MD Attending Provider, Referring Provider, Other Provider Active Team Status: Inactive Member Role Status Dates [facility] Primary Care Provider A ctive Dr. Jani Coronado DO Attending Provider, Emergency Provider Active Team Status: Inactive Member Role Status Dates [facility] Primary Care Provider A ctive Ashkan Ortiz MD Attending Provider, Referring Prov ider Active Team Status: Active Member Role Status Dates Angus SARAVIAC, METAL FURNACE OPERATOR-C Primary Care Provider Active Team Status: Inactive Member Role Status Dates Angus SARAVIAC, METAL FURNACE OPERATOR-C Primary Care Provider Active Start: February 10, 2024 End: February 10, 2024 Angus GALARZA, METAL FURNACE OPERATOR-C Referring Provider Active S tart: February 10, 2024 End: February 10, 2024 Ashkan Ortiz MD Attending Provider Active St art: February 10, 2024 End: February 10, 2024 Team Status: Inactive Member Role Status Dates Angus Batista VSC, METAL FURNACE OPERATOR-C Primary Care Provider Active Start: March 29, 2024 End: March 29, 2024 Dr. Richi Saucedo DO Attending Provider Active S tart: March 29, 2024 End: March 29, 2024 Dr. Richi Saucedo DO Emergency Provider Active S tart: March 29, 2024 End: March 29, 2024 Team Status: Inactive Member Role Status Dates Angus Batista VSC, METAL FURNACE OPERATOR-C Primary Care Provider Active Start: April 09, 2024 End: April 09, 2024 Angus Batista VSC, METAL FURNACE OPERATOR-C Referring Provider Active S tart: April 09, 2024 End: April 09, 2024 Alem Gross CNM Attending Provider Active S tart: April 09, 2024 End: April 09, 2024 Team Status: Inactive Member Role Status Dates Angus Lester GALARZA, METAL FURNACE OPERATOR-C Primary Care Provider Active Start: April 30, 2024 End: April 30, 2024 Alem Gross CNM Attending Provider Active S tart: April 30, 2024 End: April 30, 2024 Alem Gross CNM Referring Provider Active S tart: April 30, 2024 End: April 30, 2024 Team Status: Active Member Role Status Dates Angus Batista VSC, METAL FURNACE OPERATOR-C Primary Care Provider Active Start: May 11, 2024 Zebulun Beam VSC, METAL FURNACE OPERATOR-C Attending Provider Active Start: May 11, 2024 Zebulun Beam VSC, METAL FURNACE OPERATOR-C Referring Provider Active Start: May 11, 2024 Team Status: Inactive Member Role Status Dates Angus Batista VSC, METAL FURNACE OPERATOR-C Primary Care Provider Active Start: May 11, 2024 End: May 11, 2024 Angus Batista VSC, METAL FURNACE OPERATOR-C Referring Provider Active S tart: May 11, 2024 End: May 11, 2024 Ashkan Ortiz MD Attending Provider Active St art: May 11, 2024 End: May 11, 2024 Team Status: Active Member Role Status Dates Ashkan Ortiz MD Attending Provider Active St art: May 11, 2024 Ashkan Ortiz MD Referring Provider Active St art: May 11, 2024 Angus Batista VSDuke, METAL FURNACE OPERATOR-C Primary Care Provider Active Start: May 11, 2024 Team Status: Inactive Member Role Status Dates Angus Batista VSC, METAL FURNACE OPERATOR-C Primary Care Provider Active Start: May 11, 2024 End: May 11, 2024 Zebulun Beam VSC, METAL FURNACE OPERATOR-C Attending Provider Active Start: May 11, 2024 End: May 11, 2024 Zebulun Beam VSC, METAL FURNACE OPERATOR-C Referring Provider Active Start: May 11, 2024 End: May 11, 2024 Team Status: Inactive Member Role Status Dates Ashkan Ortiz MD Attending Provider Active St art: May 11, 2024 End: May 11, 2024 Ashkan Ortiz MD Referring Provider Active St art: May 11, 2024 End: May 11, 2024 Angus Batista VSC, METAL FURNACE OPERATOR-C Primary Care Provider Active Start: May 11, 2024 End: May 11, 2024 Team Status: Inactive Member Role Status Dates Angus SARAVIAC, METAL FURNACE OPERATOR-C Primary Care Provider Active Start: June 08, 2024 End: June 08, 2024 Ashkan Ortiz MD Attending Provider Active St art: June 08, 2024 End: June 08, 2024 Ashkan Ortiz MD Referring Provider Active St art: June 08, 2024 End: June 08, 2024 Team Status: Active Member Role Status Dates Angus Lester VSC, METAL FURNACE OPERATOR-C Primary Care Provider Active Start: June 08, 2024 Ashkan Ortiz MD Referring Provider Active St art: June 08, 2024 Ashkan Ortiz MD Other Provider Active Start: June 08, 2024 Dr. Ramona Martin MD Attending Provider Active Start: June 08, 2024 Team Status: Inactive Member Role Status Dates Angus Lester VSC, METAL FURNACE OPERATOR-C Primary Care Provider Active Start: June 14, 2024 End: June 14, 2024 Angus Lester SARAVIAC, METAL FURNACE OPERATOR-C Referring Provider Active S tart: June 14, 2024 End: June 14, 2024 Dr. Ana Maria Walker DO Attending Provider Activ e Start: June 14, 2024 End: June 14, 2024 Team Status: Inactive Member Role Status Dates Angus Lester VSC, METAL FURNACE OPERATOR-C Primary Care Provider Active Start: June 17, 2024 End: June 17, 2024 Dr. Carlos Martins MD Attending Provider Active Start: June 17, 2024 End: June 17, 2024 Dr. Carlos Martins MD Referring Provider Active Start: June 17, 2024 End: June 17, 2024 Team Status: Inactive Member Role Status Dates Angus Lester VSC, METAL FURNACE OPERATOR-C Primary Care Provider Active Start: July 02, 2024 End: July 02, 2024 Chaibujarad Beam VSC, METAL FURNACE OPERATOR-C Attending Provider Active Start: July 02, 2024 End: July 02, 2024 Zebulun Beam VSC, METAL FURNACE OPERATOR-C Referring Provider Active Start: July 02, 2024 End: July 02, 2024 Team Status: Active Member Role/Relationship Status Dates Angus Batista VSC, METAL FURNACE OPERATOR-C Primary Care Provider Active Team Status: Inactive Member Role/Relationship Status Dates Angus Dunnder VSC, METAL FURNACE OPERATOR-C Primary Care Provider Active Start: May 11, 2024 End: May 11, 2024 Ledy Foley VSC, METAL FURNACE OPERATOR-C Attending Provider Active Start: May 11, 2024 End: May 11, 2024 Chaibujarad Beam VSC, METAL FURNACE OPERATOR-C Referring Provider Active Start: May 11, 2024 End: May 11, 2024 Team Status: Inactive Member Role/Relationship Status Dates Angus Dunnder VSC, METAL FURNACE OPERATOR-C Primary Care Provider Active Start: May 11, 2024 End: May 11, 2024 Angus Lester GALARZA, METAL FURNACE OPERATOR-C Referring Provider Active S tart: May 11, 2024 End: May 11, 2024 Ashkan Ortiz MD Attending Provider Active St art: May 11, 2024 End: May 11, 2024 Team Status: Inactive Member Role/Relationship Status Dates Ashkan Ortiz MD Attending Provider Active St art: May 11, 2024 End: May 11, 2024 Ashkan Ortiz MD Referring Provider Active St art: May 11, 2024 End: May 11, 2024 Angus Lester VSDuke, METAL FURNACE OPERATOR-C Primary Care Provider Active Start: May 11, 2024 End: May 11, 2024 Team Status: Inactive Member Role/Relationship Status Dates Angus Lester GALARZA, METAL FURNACE OPERATOR-C Primary Care Provider Active Start: June 08, 2024 End: June 08, 2024 Ashkan Ortiz MD Attending Provider Active St art: June 08, 2024 End: June 08, 2024 Ashkan Ortiz MD Referring Provider Active St art: June 08, 2024 End: June 08, 2024 Team Status: Active Member Role/Relationship Status Dates Angus Lester GALARZA, METAL FURNACE OPERATOR-C Primary Care Provider Active Start: June 08, 2024 Ashkan Ortiz MD Referring Provider Active St art: June 08, 2024 Ashkan Ortiz MD Other Provider Active Start: June 08, 2024 Dr. Ramona Martin MD Attending Provider Active Start: June 08, 2024 Team Status: Inactive Member Role/Relationship Status Dates Angus Lester VSC, METAL FURNACE OPERATOR-C Primary Care Provider Active Start: June 14, 2024 End: June 14, 2024 Angus Lester VSDuke, METAL FURNACE OPERATOR-C Referring Provider Active S tart: June 14, 2024 End: June 14, 2024 Dr. Ana Maria Walker DO Attending Provider Activ e Start: June 14, 2024 End: June 14, 2024 Team Status: Inactive Member Role/Relationship Status Dates Angus Batista VSC, METAL FURNACE OPERATOR-C Primary Care Provider Active Start: June 17, 2024 End: June 17, 2024 Dr. Carlos Martins MD Attending Provider Active Start: June 17, 2024 End: June 17, 2024 Dr. Carlos Martins MD Referring Provider Active Start: June 17, 2024 End: June 17, 2024 Team Status: Inactive Member Role/Relationship Status Dates Angus Dunnder VSC, METAL FURNACE OPERATOR-C Primary Care Provider Active Start: July 02, 2024 End: July 02, 2024 Zebulun Beam VSC, METAL FURNACE OPERATOR-C Attending Provider Active Start: July 02, 2024 End: July 02, 2024 Zebulun Beam VSC, METAL FURNACE OPERATOR-C Referring Provider Active Start: July 02, 2024 End: July 02, 2024 Team Status: Inactive Member Role/Relationship Status Dates Angus Dunnder VSC, METAL FURNACE OPERATOR-C Primary Care Provider Active Start: September 07, 2024 End: September 07, 2024 Dr. Sergo Olsen MD Emergency Provider Active Sta rt: September 07, 2024 End: September 07, 2024 Team Status: Inactive Member Role/Relationship Status Dates Angus Batista VSC, METAL FURNACE OPERATOR-C Primary Care Provider Active Start: June 08, 2024 End: June 08, 2024 Ashkan Ortiz MD Attending Provider Active St art: June 08, 2024 End: June 08, 2024 Ashkan Ortiz MD Referring Provider Active St art: June 08, 2024 End: June 08, 2024 Team Status: Active Member Role/Relationship Status Dates Angus Batista VSC, METAL FURNACE OPERATOR-C Primary Care Provider Active Start: June 08, 2024 Ashkan Ortiz MD Referring Provider Active St art: June 08, 2024 Ashkan Ortiz MD Other Provider Active Start: June 08, 2024 Dr. Ramona Martin MD Attending Provider Active Start: June 08, 2024 Team Status: Inactive Member Role/Relationship Status Dates Angus Dunnder VSC, METAL FURNACE OPERATOR-C Primary Care Provider Active Start: June 14, 2024 End: June 14, 2024 Angus Batista VSC, METAL FURNACE OPERATOR-C Referring Provider Active S tart: June 14, 2024 End: June 14, 2024 Dr. Ana Maria Walker DO Attending Provider Activ e Start: June 14, 2024 End: June 14, 2024 Team Status: Inactive Member Role/Relationship Status Dates Angus Dunnder VSC, METAL FURNACE OPERATOR-C Primary Care Provider Active Start: June 17, 2024 End: June 17, 2024 Dr. Carlos Martins MD Attending Provider Active Start: June 17, 2024 End: June 17, 2024 Dr. Carlos Martins MD Referring Provider Active Start: June 17, 2024 End: June 17, 2024 Team Status: Inactive Member Role/Relationship Status Dates Angus Dunnder VSC, METAL FURNACE OPERATOR-C Primary Care Provider Active Start: July 02, 2024 End: July 02, 2024 Zebulun Beam VSC, METAL FURNACE OPERATOR-C Attending Provider Active Start: July 02, 2024 End: July 02, 2024 Zebulun Beam VSC, METAL FURNACE OPERATOR-C Referring Provider Active Start: July 02, 2024 End: July 02, 2024 Team Status: Inactive Member Role/Relationship Status Dates Angus Batista VSC, METAL FURNACE OPERATOR-C Primary Care Provider Active Start: September 07, 2024 End: September 07, 2024 Dr. Sergo Olsen MD Attending Provider Active Sta rt: September 07, 2024 End: September 07, 2024 Dr. Sergo Olsen MD Emergency Provider Active Sta rt: September 07, 2024 End: September 07, 2024 Team Status: Inactive Member Role/Relationship Status Dates Angus Dunnder VSC, METAL FURNACE OPERATOR-C Primary Care Provider Active Start: September 17, 2024 End: September 17, 2024 Zebulun Beam VSC, METAL FURNACE OPERATOR-C Attending Provider Active Start: September 17, 2024 End: September 17, 2024 Team Status: Inactive Member Role/Relationship Status Dates Angus Dunnder VSC, METAL FURNACE OPERATOR-C Primary Care Provider Active Start: July 02, 2024 End: July 02, 2024 Zebulun Beam VSC, METAL FURNACE OPERATOR-C Attending Provider Active Start: July 02, 2024 End: July 02, 2024 Zebulun Beam VSC, METAL FURNACE OPERATOR-C Referring Provider Active Start: July 02, 2024 End: July 02, 2024 Team Status: Inactive Member Role/Relationship Status Dates Angus Batista VSC, METAL FURNACE OPERATOR-C Primary Care Provider Active Start: September 07, 2024 End: September 07, 2024 Dr. Sergo Olsen MD Attending Provider Active Sta rt: September 07, 2024 End: September 07, 2024 Dr. Sergo Olsen MD Emergency Provider Active Sta rt: September 07, 2024 End: September 07, 2024 Team Status: Inactive Member Role/Relationship Status Dates Angus Batista VSC, METAL FURNACE OPERATOR-C Primary Care Provider Active Start: September 17, 2024 End: September 17, 2024 Chaibujarad Foley VSC, METAL FURNACE OPERATOR-C Attending Provider Active Start: September 17, 2024 End: September 17, 2024 Team Status: Active Member Role/Relationship Status Dates Angus Batista VSC, METAL FURNACE OPERATOR-C Primary Care Provider Active Start: October 21, 2024 Health Risk Assessment Attending Provider Active Start: October 21, 2024 Team Status: Inactive Member Role/Relationship Status Dates [facility] Referring Provider Active Start: October End: October 26, 2024 Dr. Harry Fernandes MD Attending Provider Active Start: October 26, 2024 End: October 26, 2024 Angus Batista VSC, METAL FURNACE OPERATOR-C Primary Care Provider Active Start: October 26, 2024 End: October 26, 2024 Source Comments (unrecognize d section and content) In the event this informatio n is protected by the Federal Confidentiality of Alcohol and Drug Abuse Patient Records regulations: The Federal rules restrict any use of the information to criminally investigate or prosecute any alcohol or drug abuse patient.[facility] the event this information is protected by the Federal Confidentiality of Alcohol and Drug Abuse Patient Records regulations: The Federal rules restrict any use of the information to criminally investigate or prosecute any alcohol or drug abuse patient.[facility] Reason for Visit (unrecogniz ed section and content) Reason Comments Appointment INFORMATION SOURCE (unrecogn ized section and content) DATE CREATED AUTHOR 11/08/2023 [facility] DATE CREATED AUTHOR AUTHOR'S ORGANIZ ATION 12/02/2024 [facility] FOR RECORDS PERTAINING TO PATIENTS WHO ARE [...] BE BASED ON THE PRIMARY CLINICAL RECORDS. [facility]. provides no warranty or guarantee of the accuracy or completeness of information in this document.
--- NOTE | 2024-12-03 17:48 | US_ITS ---
PROCEDURE: PELVIC W/ TRANSVAGINAL 12/03/2024 REASON FOR EXAM: LLQ PAIN Left lower quadrant pelvic pain for 1 month. History of hysterectomy and right oophorectomy in February 2021. TECHNIQUE: Procedure Code: [id number] Modality: US Procedure: PELVIC W/ TRANSVAGINAL COMPARISON: None FINDINGS: Transabdominal and endovaginal pelvic sonography were performed. Endovaginal pelvic sonography was performed for better visualization of the ovary. Measurements: Uterus: The uterus is absent compatible with patient's history of hysterectomy. Right Ovary: The right ovary is absent compatible with patient's history of right oophorectomy. Left Ovary: 4.3 x 3.9 x 2.5 cm with a volume of 23 mL. Left ovary: There is a benign-appearing cyst identified measuring 2.8 x 2.8 x 2.7 cm. There is no free fluid in the cul-de-sac. Other: Urinary bladder measures 13.3 x 9.2 x 7.9 cm. Urinary bladder volume measures 507 mL. The bladder wall is not abnormally thickened measuring 2 mm. There are no filling defects or masses seen within the urinary bladder. US/Pelvic w/ Transvaginal IMPRESSION: 1.Evidence of previous hysterectomy and right oophorectomy. 2. Left ovarian cystic mass which has a benign appearance. Follow-up pelvic u ltrasound in 6 weeks is recommended when she is in a different phase of her menstrual cycle for re-evaluation. Reading Location: [id number]
== END | disposition home or self-care (01) ==
LOC: US 17:40
PROVIDERS: PCP Nurse Practitioner Family; Referring Provider Nurse Practitioner Women's Health; Visit Provider Nurse Practitioner Women's Health
DX: R10.32 Left lower quadrant pain (principal)
CPT/HCPCS: 76830; 76856

== ENCOUNTER → 2025-01-14 | Outpatient (CLI) | payer OTHER, SELFPAY ==
--- NOTE | 2025-01-14 15:59 | US_ITS ---
PROCEDURE: PELVIC W/ TRANSVAGINAL 01/14/2025 REASON FOR EXAM: RPT US, R OVARIAN CYST TECHNIQUE: Procedure Code: USPELTVAG Modality: US Procedure: PELVIC W/ TRANSVAGINAL COMPARISON: Pelvic ultrasound dated December 03 2024. FINDINGS: Measurements: Uterus: Absent compatible with patient's history of hysterectomy. Right Ovary: Absent compatible with patient's history of right oophorectomy Left Ovary: 5.1 x 4.8 x 4.1 cm with a volume of 87 mL. There is a benign- appearing cyst measuring 4.7 x 4.5 x 3.5 cm. This is larger when compared to the 12/03/2024 study. There is blood flow to the ovary. There is no evidence of ovarian torsion. Other: There is no fluid in the cul-de-sac. Urinary bladder measures 13.0 x 9.2 x 9.1 cm. Urinary bladder volume is 567 mL. The bladder wall is smooth. No masses are seen within the urinary bladder. US/Pelvic w/ Transvaginal IMPRESSION: There is a benign-appearing ovarian cyst which is increasing in size. The diff erential diagnosis would include a functional cyst, endometrioma, and cyst adenoma. Even though the cyst appears benign, the increase in size is concerning. MRI should be considered for further evaluation. Follow-up ultrasound in 6 weeks, when she i s in a different phase of her menstrual cycle, should also be considered for re-evaluation. Reading Location: [id number]
--- OUTSIDE RECORDS SUMMARY | 2025-01-14 16:00 | XMS RPT_ITS | CCD ---
Author Organization [facility] Care Team Providers Care Statistical Programmer Analyst Name Role Phone Dr. Grisel Solares Primary Care Provider [phone] Dr. Grisel Solares Referring Provider [phone] Ashkan Tolentino Attending Provider [phone] Lester PRECAST WORKER, PRECAST WORKER-C Angus Attending Provider [phone] Dr. Carlton Douglas Attending Provider [phone] Dr. Katharine Madden Attending Provider [phone] Dr. Grisel Solares Primary Care Provider [phone] Dr. Grisel Solares Referring Provider [phone] Dr. Carlton Douglas Attending Provider [phone] Lester PRECAST WORKER, PRECAST WORKER-C Angus Attending Provider [phone] Dr. Katharine Madden Attending Provider [phone] Dr. Harry Fernandes Attending Provider Dr. Ana Maria Walker Attending Provider [phone] Dr. Grisel Solares Primary Care Provider [phone] Dr. Grisel Solares Referring Provider [phone] Dr. Grisel Solares Primary Care Provider [phone] Dr. Grisel Solares Referring Provider [phone] Lester PRECAST WORKER, PRECAST WORKER-C Angus Attending Provider [phone] Dr. Grisel Solares Primary Care Provider [phone] [phone] Dr. Grisel Solares Referring Provider [phone] Dr. Harry Fernandes Attending Provider [phone] [facility], [facility] Primary Care Pro vider Dr. Grisel Solares Referring Provider [phone] [facility], [facility] Referring Provid er MD Ashkan Tolentino Attending Provider [phone] MD Ashkan Tolentino Other Provider [phone] Grisel Solares Referring Provider [phone] Dr. Harry Fernandes Attending Provider [phone] [facility], [facility] Primary Care Pro vider [facility], [facility] Referring Provid er MD Ashkan Tolentino Attending Provider [phone] MD Ashkan Tolentino Other Provider [phone] Katharine Madden Attending Provider [phone] DARIN Arthur Attending Provider [phone] [facility], [facility] Primary Care Pro vider [facility], [facility] Referring Provid er Dr. Katharine Madden Attending Provider MD Ashkan Tolentino Attending Provider [phone] DARIN Arthur Attending Provider [phone] Leonel PRECAST WORKER, PRECAST WORKER-C Lindy Attending Provider [phone] [facility], [facility] Primary Care Pro vider [facility], [facility] Referring Provid er MD Ashkan Tolentino Attending Provider [phone] Dr. Grisel Solares Referring Provider [phone] Dr. Ana Maria Walker Attending Provider [phone] MD Ashkan Tolentino Referring Provider [phone] MD Ashkan Tolentino Other Provider [facility], [facility] Primary Care Pro vider [facility], [facility] Referring Provid er Unavailable Primary Care Provider UnavailASHKAN Beltran Referring Unavailable Batista PRECAST WORKER-C, Angus Primary Care Provider Batista PRECAST WORKER-C, Angus Referring Provider Ashkan Tolentino MD Attending Provider eLwis PENNINGTON, Dr. Stoddard Attending Provider Dr. Richi Saucedo DO Emergency Provider Alem Gross CNM Attending Provider Alem Gross CNM Referring Provider Beam PRECAST WORKER-C, Ledy Attending Provider Beam PRECAST WORKER-C, Zebujarad Referring Provider Ashkan Tolentino MD Referring Provider Batista PRECAST WORKER-C, Angus Primary Care Provider Batista PRECAST WORKER-C, Angus Referring Provider Ashkan Tolentino MD Attending Provider Ashkan Tolentino MD Other Provider Veronica ROGER, Dr. Greene Attending Provider Dr. Ana Maria Walker DO Attending Provider Dr. Carlos Martins MD Attending Provider Dr. Carlos Martins MD Referring Provider Batista PRECAST WORKER-C, Angus Primary Care Provider Batista PRECAST WORKER-C, Angus Referring Provider Raúl ROGER, Dr. Trotter Emergency Provider Batista PRECAST WORKER-C, Angus Primary Care Provider Ashkan Tolentino MD Attending Provider Ashkan Tolentino MD Referring Provider Batista PRECAST WORKER-C, Angus Referring Provider Beam PRECAST WORKER-C, Zebujarad Attending Provider Beam PRECAST WORKER-C, Zebulun Referring Provider Raúl ROGER, Dr. Trotter Attending Provider Batista PRECAST WORKER-C, Angus Primary Care Provider Assessment, Health Risk Attending Provider [facility], [place] Referring Provid er Dom ROGER, Dr. Mcdonald Attending Provider Batista PRECAST WORKER-C, Angus Primary Care Physician Raúl ROGER, Dr. Trotter Attending Physician Raúl ROGER, Dr. Trotter Emergency Department Physician Beam PRECAST WORKER-C, Zebulun Attending Physician Assessment, Health Risk Attending Physician [facility] Dom ROGER, Dr. Mcdonald Attending Physician Batista PRECAST WORKER-C, Angus Referring Provider Leonel PRECAST WORKER-C, Lindy Attending Physician [place] PRECAST WORKER-C, Lindy Referring Provider Batista VSC, Angus Primary Care Unavailable Assessment, Health Risk Attending Unavaila ble Assessment, Health Risk Referring Unavaila ble Batista VSC, Angus Primary Care Unavailable Batista VSC, Angus Referring Unavailable Ashkan Tolentino Attending Unavailable Batista VSC, Angus Referring Unavailable Batista VSC, Angus Primary Care Unavailable Ashkan Tolentino Attending Unavailable Ashkan Tolentino Referring Unavailable Batista VSC, Angus Primary Care Unavailable Ashkan Tolentino Attending Unavailable Assessment, Health Risk Attending Unavaila ble Batista VSC, Angus Primary Care Unavailable Batista VSC, Angus Primary Care Unavailable Beam VSC, Zebulun Attending Unavailable Beam VSC, Zebulun Referring Unavailable Batista VSC, Angus Primary Care Unavailable [place] PRECAST WORKER Lindy Attending Unavailable Batista VSC, Angus Primary Care Unavailable Mariella Saucedous Attending Unavailable Harry Fernandes Attending Unavailable [facility], [facility] Referring Unavailable Batista VSC, Angus Primary Care Unavailable Batista VSC, Angus Primary Care Unavailable Sergo Olsen Attending Unavailable Batista VSC, Angus Primary Care Unavailable Batista VSC, Angus Referring Unavailable [place] PRECAST WORKER, Lindy Attending Unavailable Batista VSC, Angus Referring Unavailable Batista VSC, Angus Primary Care Unavailable Alem Gross Attending Unavailable Batista VSC, Angus Referring Unavailable Batista VSC, Angus Primary Care Unavailable Ashkan Tolentino Attending Unavailable Batista VSC, Angus Primary Care Unavailable Batista VSC, Angus Referring Unavailable Eladio Davey Attending Unavailable Ashkan Tolentino Referring Unavailable Batista VSC, Angus Primary Care Unavailable Ashkan Tolentino Consulting Unavailable Ramona Martin Attending Unavailable Ana Maria Walker Attending Unavailabl e Batista VSC, Angus Primary Care Unavailable Batista VSC, Angus Referring Unavailable Beam VSC, Zebulun Attending Unavailable Batista VSC, Angus Primary Care Unavailable Batista VSC, Angus Primary Care Unavailable [place] PRECAST WORKER, Lindy Referring Unavailable [place] PRECAST WORKER, Lindy Attending Unavailable Batista VSC, Angus Primary Care Unavailable Alem Gross Referring Unavailable Alem Gross Attending Unavailable Carlos Martins Referring Unavailable Carlos Martins Attending Unavailable Batista VSC, Angus Primary Care Unavailable Batista VSC, Angus Primary Care Unavailable Beam VSC, Zebulun Attending Unavailable Beam VSC, Zebulun Referring Unavailable Ashkan Tolentino Referring Unavailable Batista VSC, Angus Primary Care Unavailable Ashkan Tolentino Attending Unavailable Allergies Allergy Classification Reported Allergen(s) Allergy Type Date of Onset Reaction(s) Facility (20 sources) Cefaclor; Translations: [CEFACLOR] Drug Allergy 5 Rash [facility] (20 sources) Doxycycline; Translations: [DOXYCYCLINE] Drug Allergy 5 Rash, Diarrhea [facility] Comment on above: rash (20 sources) Penicillins; Translations: [PENICILLINS] Allergy to substance 5 [facility] (2 sources) Penicillins Propensity to adverse reactions 5 [facility] (3 sources) Seasonal allergy; Translations: [SEASONAL ALLERGIES] Propensity to adverse reactions 0 [facility] Work Phone: (1 source) Cefaclor Drug Allergy 5 [facility] (1 source) Doxycycline Drug Allergy 5 [facility] (1 source) Penicillins Drug allergy (disorder) [facility] Medications Current Medications Medication Drug Class(es) Dates Sig (Normalized) Sig (Original) acetaminophen 325 mg / HYDROcodone bitartrate 5 mg oral tablet (4 sources) Opioid Agonist Start: 09-29-2022 take 1 tablet by mouth every six hours as needed Hydrocodone-Aceta minophen Active 1 TABLET PO EVERY 6 HOURS NEEDED 10 September 29, 2022 busPIRone hydrochloride 30 mg oral tablet (20 sources) Start: 05-28-2022 take 1 tablet by mouth twice daily Start: 02-27-2022 End: 05-28-2022 take 1 tablet [...] 5 mg PO TWICE A DAY 60 November 16, 2021 12:00am November 27, 2021 9:02am cariprazine 1.5 mg oral capsule (18 sources) Atypical Antipsychotic Start: 11-25-2022 take 1 capsule by mouth once daily Start: 11-25-2022 take 1 capsule by [facility] every other day Cariprazine (Vraylar) 1.5 mg capsule Active 1.5 MG PO EVERY OTHER DAY November 25, 2022 12:00am cetirizine hydrochloride 10 mg oral capsule (20 sources) Histamine-1 Receptor Antagonist Start: 11-18-2017 End: 02-15-2020 take 1 capsule by mouth once daily Start: 04-30-2017 take 1 tablet [address] [facility] once daily cetirizine (ZYRTEC) 10 mg tablet Take 1 tablet by mouth once daily. 04/30/2017 Active cholestyramine resin 4000 mg powder for oral suspension (2 sources) Bile Acid Sequestrant Start: 12-08-2017 cholestyramine-sucrose (QUESTRAN) 4 gram powder Take 1/2 teaspoon, mixed in at least 8 oz of juice or water each morning. 378 g 2 12/08/2017 Active Ciprofloxacin-Hydroco rtisone (Cipro Hc) 0.2-1 % drops,suspension (4 sources) Start: 09-29-2022 Ciprofloxacin-Hydrocortisone (Cipro Hc) 0.2-1 % drops,suspension Active 3 DRP LEFT EAR TWICE A DAY 11 23September 29, 2022 12:00am Empty Vial misc (10 sources) Start: 05-11-2024 Empty Vial misc Active 0 .Route May 11, 2024 12:00am As directed Start: 05-11-2024 Empty Vial mis c Active 0 .ROUTE May 11, 2024 12:00am As directed hydrOXYzine pamoate 25 mg oral capsule (20 sources) Antihistamine Start: 11-29-2024 take 1 capsule by [facility] three times daily Start: 01-31-2020 End: 02-28-2021 take 1 tablet by mouth twice daily as needed for headache Hydroxyzine Hcl 25 mg tablet Discontinued 25 mg PO TWICE A DAY as needed for headache February 15, 2020 2:42pm February 28, 2021 6:05pm 12 hr hyoscyamine sulfate 0.375 mg extended release oral tablet (2 sources) Start: 12-08-2017 take 0.375 mg by mouth every twelve hours as needed hyoscyamine SR (LEVBID) 0.375 mg 12 hr tablet Take 1 tablet by mouth every 12 hours as needed. 60 tablet 3 12/08/2017 Active propranolol hydrochloride 20 mg oral tablet (20 sources) beta-Adrenergic Thais Start: 06-05-2023 take 1 tablet by mouth once daily Start: 02-13-2022 End: 06-05-2023 take 1 tablet [...] 13, 2020 1:00am March 29, 2020 6:13pm vitamin b12 0.1 mg oral tablet (17 sources) Vitamin B12 Start: 12-06-2022 take 1 tablet by greg th once daily Completed/Discontinued Medications Medication Drug Class(es) Dates Sig [...] 2:09pm Start: 07-08-2018 take 1 capsule by [facility] every eight hours as needed benzonatate (TESSALON PERLES) 100 mg capsule Take 1 capsule by mouth three times daily as needed. 30 capsule 1 07/08/2018 Active cephalexin 500 mg oral capsule (11 sources) Cephalosporin Antibacterial Start: 06-19-2023 End: 06-24-2023 [...] (5,000 unit) capsule Discontinued 125 ug PO .MWF January 02, 2021 4:03pm August 07, 2022 [...] 5 tablet Discontinued 1 {tbl} PO DAILY March 27, 2020 9:20am March 30, 2020 5:02pm Active pills only for continuous cycling. Start: 03-27-2020 End: 03-30-2020 take 1 tablet by mouth once daily Desog-E.Estradiol/E.Estradiol (Kariva (2 8)) 0.15-0.02 mgx21 /0.01 mg x 5 tablet Discontinued 1 TABLET PO DAILY March 27, 2020 9:20am March 30, 2020 [...] 2019 10:08am dexamethasone 6 mg oral tablet (10 sources) Corticosteroid Start: 10-08-2023 End: 11-14-2023 take [...] Start: 07-08-2018 take 1 tablet by greg once daily dicyclomine (BENTYL) 20 mg tablet Take 1 tablet by mouth once daily. 90 tablet 3 07/08/2018 Active docusate sodium 100 mg oral capsule (20 sources) Start: 03-13-2021 End: 04-24-2021 take 1 capsule by mouth twice daily Docusate Sodium (Colace) 100 mg capsule Discontinued 100 mg PO TWICE A DAY 28 14 0 March 13, 2021 8:30am April 24, 2021 10:24am eletriptan 20 mg oral tablet (20 sources) Serotonin-1b and Serotonin-1d Receptor Agonist Start: 03-28-2022 End: 10-26-2024 take 1 tablet by mouth every two hours as needed for headache, then take 2 tablets by mouth once daily as needed for headache Eletriptan (Relpax) 20 mg tablet Discontinued 0 .ROUTE .COMPLEX 9 2 September 29, 2023 11:42am October 26, 2024 2:56pm Take 1 tablet [...] at least 2 hrs; max 2 doses/day 1 ml erenumab-aooe 140 mg/ml auto-injector (20 sources) Start: 10-09-2020 End: 10-26-2024 Erenumab-Aooe (Aimovig Autoinjector) 140 mg/mL auto-injector Discontinued 140 mg SC EVERY MONTH 1 0 October 11, 2024 1:00pm October 26, 2024 2:56pm migraines Start: 06-22-2020 End: 10-09-2020 Erenumab-Aooe (Aimovig Autoi njector) 70 mg/mL auto-injector Discontinued 70 mg SC EVERY MONTH 1 3 August 01, 2020 12:05pm October 09, 2020 1:53pm erythromycin 250 mg oral tablet (20 sources) Macrolide, Macrolide Antimicrobial Start: 02-25-2023 End: 03-07-2023 take 1 tablet by mouth every six hours Erythromycin 250 mg tablet Discontinued 250 mg PO EVERY 6 HOURS 40 10 0 February 25, 2023 8:50pm March 06, 2023 1:00am March 07, 2023 1:05am 4 times a day gabapentin 300 mg oral capsule (7 sources) Anti-epileptic Agent Start: 06-14-2024 End: 09-07-2024 [...] 01, 2021 9:11am February 19, 2021 1:02pm ibuprofen 800 mg oral tablet (20 sources) [...] while taking meloxicam 15 mg oral tablet (7 sources) Nonsteroidal Anti-inflammator y Drug Start: 06-14-2024 [...] 28, 2020 9:06am March 13, 2021 8:21am Uqkrdaqs-Nngovpnqw-Jw (17 sources) Start: 03-08-2021 End: 03-28-2021 Ympvkhrx-Hiwicsdmr-Yx Discontinued DRP OTIC THREE TIMES A DAY March 08, 2021 1:00am March 28, 2021 4:17pm Start: 03-08-2021 End: 03-28-2021 Mbazjxoj-Fnakcccob-Xv Discon tinued DRP OTIC THREE TIMES A DAY March 08, 2021 12:00am March 28, 2021 3:17pm Wsyrazrg-Thfqcasmc-Tj drops,suspension (10 sources) Start: 03-08-2021 End: 03-28-2021 Nwbxtndt-Gfefsjxqh-Ig drops,suspension Discontinued NMA OTIC THREE TIMES A [...] release(DR/EC) Discontinued 20 mg PO DAILY 90 November 28, 2020 9:05am December 04, 2020 9:43am ondansetron 4 mg oral tablet (20 sources) Serotonin-3 Receptor Antagonist Start: 03-28-2022 End: 10-26-2024 take 1 tablet by mouth three times daily as needed for nausea and vomiting Ondansetron Hcl 4 mg tablet Discontinued 4 mg PO THREE TIMES A DAY as needed for nausea and vomiting 90 September 29, 2023 11:42am October 26, 2024 2:56pm Start: 10-14-2017 End: 03-28-2022 take 1 tablet by mouth every eight hours as needed for nausea and vomiting Ondansetron Hcl (Zofran) 4 mg tablet Discontinued 4 mg PO Q8H as needed for nausea and vomiting 90 November 28, 2020 8:58am April 24, 2021 11:09am pantoprazole 40 mg delayed release oral tablet [...] hrs; max = 3 tabs/24 hr PO Semaglutide (Weight Loss) (7 sources) Start: 06-14-2024 End: 11-29-2024 Semaglutide (Weight Loss) 0.5 mg/0.5 mL pen injector Discontinued 1.5 mg SC EVERY WEEK June 14, 2024 12:00am November 29, 2024 2:46pm administer weeks 5 through 8 of therapy Start: 06-14-2024 Semaglutide (W eight Loss) 0.5 mg/0.5 mL pen injector Active 1.5 mg SC EVERY WEEK June 14, 2024 12:00am administer weeks through 8 of therapy Start: 06-14-2024 Semaglutide (W eight Loss) 0.5 mg/0.5 mL pen injector Active 0.5 mg SC EVERY WEEK June 14, 2024 12:00am administer weeks through 8 of therapy sucralfate 1000 mg oral tablet (20 sources) Aluminum Complex Start: 11-30-2020 End: 01-02-2021 take 1 tablet by mouth at bedtime Sucralfate 1 gram tablet Discontinued 1 g PO before meals and at bedtime 56 0 November 30, 2020 12:00am January 02, 2021 4:05pm tiZANidine 4 mg oral tablet (20 sources) Central alpha-2 Adrenergic Agonist Start: 03-28-2022 End: 10-26-2024 Tizanidine (Zanaflex) 4 mg tablet Discontinued 8 mg PO AT BEDTIME 60 0 October 11, 2024 12:58pm October 26, 2024 2:57pm Start: 05-02-2020 End: 03-28-2022 take 4-8 mg by mouth three times daily as needed for pain Tizanidine 4 mg tablet Discontinued 4 - 8 mg PO THREE TIMES A DAY as needed for neck pain 180 1 February 08, 2021 9:38am March 07, 2021 9:14am tobramycin 3 mg/ml ophthalmic solution (10 sources) Aminoglycoside Antibacterial Start: 10-13-2023 End: 11-14-2023 [...] 05, 2023 5:58pm May 27, 2023 11:16am ubrogepant 100 mg oral tablet (20 sources) Start: 03-28-2022 End: 10-26-2024 take 1 tablet by mouth every two hours as needed for headache, then take 2 tablets by mouth once daily as needed for headache Ubrogepant 100 mg tablet Discontinued 100 mg PO .COMPLEX 16 4 September 29, 2023 11:44am October 26, 2024 2:56pm migraine headache Take 1 tablet orally every [...] >=2 hours after first dose if needed Problems Active Problems Problem Classification Problem Date Documented Da te Episodic/Chronic Abdominal pain (20 sources) Epigastric pain; Translations: [Epigastric pain] Onset: 9 Resolved: 5 11-30-2020 Episodic Comment on above: LLQ Anxiety disorders (20 sources) Anxiety disorder, unspecified; [...] that caused by tuberculosis or sexually transmitteddisease) (10 sources) Unspecified acute conjunctivitis, left eye; Translations: [...] with vomiting, unspecified] Onset: 8 06-08-2022 Episodic Nutritional deficiencies (20 sources) Vitamin deficiency; [...] region] 03-07-2022 Episodic Other connective tissue disease (13 sources) Musculoskeletal pain; Translations: [Myalgia, other site] 03-27-2023 Episodic Comment on above: appt Mar 2023 [facility] Arthritis Other connective tissue disease (3 [...] otitis externa, left ear] 09-29-2022 Episodic Other ear and sense organ disorders (1 source) Tinnitus of right ear; Translations: [Tinnitus, right ear] 06-22-2020 Episodic Other ear and sense organ disorders (1 source) Acute otitis externa of left ear; Translations: [Unspecified acute noninfective otitis externa, left ear] 10-07-2022 Episodic Other ear and sense organ disorders (1 source) Impacted cerumen in right ear; Translations: [Impacted cerumen, right ear] 05-17-2021 Episodic Other female genital disorders (20 sources) [...] syndrome] 12-06-2022 Chronic Other nervous system disorders (15 sources) Carpal tunnel syndrome of right wrist; Translations: [Carpal tunnel syndrome, right upper limb] Onset: 6 08-30-2021 Chronic Other nervous system disorders (2 sources) Polyneuropathy; Translations: [Polyneuropathy, unspecified] Onset: 6 02-21-2015 Chronic Other nervous system disorders (20 sources) Meralgia paresthetica; Translations: [Meralgia paresthetica, unspecified lower limb] Chronic Other nervous system disorders (1 source) Bilateral carpal tunnel syndrome; Translations: [Carpal tunnel syndrome, bilateral upper limbs] 10-05-2021 Chronic Other nervous system disorders (2 sources) [...] sensation] 06-19-2023 Episodic Other nervous system disorders (6 sources) Tinel's sign; Translations: [Paresthesia of skin] 08-22-2021 Episodic Comment on above: BUE Other non-traumatic joint disorders (10 sources) Hip pain; Translations: [Pain in left [...] codes; unclassified (2 sources) Flushing; Translations: [Flushing] 11-29-2024 Episodic Residual codes; unclassified (1 source) Flushing; Translations: [Flushing] Onset: Episodic Screening and history of mental health and substance abuse codes (20 sources) History of clinical finding in subject; Translations: [Personal history of other mental and behavioral disorders] 11-19-2019 Episodic Spondylosis; intervertebral disc disorders; other back problems (20 sources) Neck pain; Translations: [Cervicalgia] 03-16-2021 Episodic Syncope (4 sources) Vasovagal symptom; Translations: [Syncope and collapse] 09-07-2024 Episodic Unclassified (8 sources) G57.10 - Meralgia paresthetica, unspecified lower limb Unclassified (1 source) Pelvic and perineal pain unspecified side; Translations: [...] eloxicam, diagnostic mammogram and u/s right side-nl Nonspecific chest pain (5 sources) Chest discomfort; Translations: [Other chest pain] Onset: 09-09-2024 09-07-2024 Episodic Other connective tissue disease (1 source) Pain [...] Test Name Value Interpretation Reference Range Facility Antimullerian Hormone, Serum on 12-03-2024 AMH, SERUM 0.618 ng/mL Normal . [facility] Comment on above: Result Comment: For assays employing antibodies, the possibility exists for interference by heterophile antibodies in the samples.1 1.Memo Up Interferences in Immunoassays - still a threat. Clin. Chem. 2000; 46: 0269-5165. This test was developed and its performance characteristics determined by [facility]. It has not been cleared or approved by the Food and Drug Administration. Reference Range: Females 36 - 40y: 0.42 - 8.34 Median 1.69 AMH concentrations of >= 1.06 ng/mL is correlated with a better response to ovarian stimulation, produced more retrievable oocytes and higher odds of live according to Aleshiaer et al. Fertility and Sterility. 2010: 94:4030-7094. The current AMH test method correlates with the study method with a slope of 0.94. Females at risk of ovarian hyperstimulation syndrome or polycystic ovarian syndrome (PCOS) may exhibit elevated serum AMH concentrations. AMH levels from PCOS patients may be 2 to 5 fold higher than age-appropriate reference interval values. Granulosa cell tumors of the ovary may secrete AMH along with other tumor markers. Elevated AMH is not specific for malignancy, and the assay should not be used exclusively to diagnose or exclude an AMH-secreting ovarian tumor. Performed at: [facility] [address] [place] [id number] Slab Miller Operator: Bogdan Valencia MD, Phone: [phone] Performed By: #### L 218.6822, [id number], [id number], L613.3000 #### [facility] [address] [place], [place], [id number] Pelvic w/ Transvaginalon Pelvic w/ Transvaginal [facility] [address] [place] [address] Pelvic w/ Transvaginal MR#: [id number] Acct: [id number] Name: ANA MARIA JOSEPH ANN Rep #: [id number] : 1985 F 39 From: Fern Cowan PCP: HANG Jaemson Status: DEP CLI Study: Pelvic w/ Transvaginal Date of Exam: 12/03/24 Exam# [id number] Ordering Dr: Lindy Castaneda NP PRECAST WORKER -C ADDENDUM by Dr. Fern Hector DO on 12/27/24 at 1544 ORADS 2. RECOMMENDATION: FOLLOW-UP ULTRASOUND IN 1 YEAR. Reading Location: [id number] 12/27/24 1544 Date cc: HANG Batista; HANG Castaneda * Signed PROCEDURE: PELVIC W/ TRANSVAGINAL 12/03/2024 REASON FOR EXAM: LLQ PAIN Left lower quadrant pelvic pain for 1 month. History of hysterectomy and right oophorectomy in February 2021. TECHNIQUE: Procedure Code: [id number] Modality: US Procedure: PELVIC W/ TRANSVAGINAL COMPARISON: None FINDINGS: Transabdominal and endovaginal pelvic sonography were performed. Endovaginal pelvic sonography was performed for better visualization of the ovary. Measurements: Uterus: The uterus is absent compatible with patient's history of hysterectomy. Right Ovary: The right ovary is absent compatible with patient's history of right oophorectomy. Left Ovary: 4.3 x 3.9 x 2.5 cm with a volume of 23 mL. Left ovary: There is a benign-appearing cyst identified measuring 2.8 x 2.8 x 2.7 cm. There is no free fluid in the cul-de-sac. Other: Urinary bladder measures 13.3 x 9.2 x 7.9 cm. Urinary bladder volume measures 507 mL. The bladder wall is not abnormally thickened measuring 2 mm. There are no filling defects or masses seen within the urinary bladder. US/Pelvic w/ Transvaginal IMPRESSION: 1.Evidence of previous hysterectomy and right oophorectomy. 2. Left ovarian cystic mass which has a benign appearance. Follow-up pelvic ultrasound in 6 weeks is recommended when she is in a different phase of her menstrual cycle for re-evaluation. Reading Location: [id number] CC: HANG Batista; HANG Castaneda Manager Book: Signed Normal [facility] Estradiolon 11-29-2024 ESTRADIOL 481.0 pg/mL [facility] Comment on above: Result Comment: FEMA [...] by age 17. Performed By: #### L 501.9529, L3100.5125, L3300.1750, L803.3000 #### [facility] [address] [place], [address] Follicle Stimulating Hormone on 11-29-2024 FSH 4.3 mIU/mL Normal [facility] Comment on above: Result Comment: FEMA LE: Follicular: 1.4 - 18.1 mIU/mL Midcycle: 3.4 - 33.4 mIU/mL Luteal: 1.5 - 9.1 mIU/mL Post Menopause: 23.0 - 116.3 mIU/mL MALE: 1.4 - 18.1 mIU/mL Performed By: #### L 501.9520, L3100.5125, L3300.1750, L803.3000 #### [facility] [address] 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 Normal [facility] Serum or plasma estradiol me asurement after follitropin dose (mass/volume)Ordered By: Lindy Castaneda on 11-29-2024 E2 post dose follitropin [Mass/Vol] 481.0 pg/mL [facility] Comment on above: FEMALES ADULT FEMALE : Premenopausal: 15-350 pg/mL(E2 levels vary widely through [...] year earlier in obese girls and in girls.Progression through Osmany stages is variable. Osmany stage V (adult) should be reached by age 18. Serum or plasma flecainide m easurement (mass/volume)Ordered By: Lindy Castaneda on 11-29-2024 Flecainide [Mass/Vol] 0.618 ng/mL . [facility] Comment on above: For assays employing antibodies, the possibility exists forinterference by heterophile antibodies in the samples.11.Memo Michael. Interferences in Immunoassays - still a threat. Clin. Chem. 2000; 46: 3678-1256.This test was developed and its performance characteristicsdetermined by [employer]. It has not been cleared or approvedby the Food and Drug Administration.Reference Range:Females 36 - 40y: 0.42 - 8.34Median 1.69AMH concentrations of >= 1.06 ng/mL is correlated with abetter response to ovarian stimulation, produced moreretrievable oocytes and higher odds of live accordingto Aleshiaer et al. Fertility and Sterility. 2010:94:5695-1191. The current AMH test method correlates withthe study method with a slope of 0.94.Females at risk of ovarian hyperstimulation syndrome orpolycystic ovarian syndrome (PCOS) may exhibit elevatedserum AMH concentrations. AMH levels from PCOS patientsmay be 2 to 5 fold higher than age-appropriate referenceinterval values.Granulosa cell tumors of the ovary may secrete AMH alongwith other tumor markers. Elevated AMH is not specific formalignancy, and the assay should not be used exclusively todiagnose or exclude an AMH-secreting ovarian tumor.Performed at: [facility] [id number] [place] [address] [id number] Director: Bogdan Valencia MD, Phone: [phone] TSH DL <= 0.005 mIU/L QnOrde red By: Lindy Castaneda on 11-29-2024 TSH Qn 2.370 uIU/mL 0.300-4.20 0 [facility] Thyroid Stim Hormone (TSH)on 11-29-2024 TSH 2.370 uIU/mL Normal 0.300-4.20 0 [facility] Comment on above: Performed By: #### L 501.9520, L3100.5125, L3300.1750, L803.3000 #### [facility] [address] [place], [address] Neurology Visit Reporton Neurology Visit Report [facility] [address], [address] [place] [address] OFFICE VISIT Date of Service: 10/26/24 MR#: [id number] Acct: [id number] Name: ANA MARIA JOSEPH ANN Rep #: [id number] : 1985 Provider: Dr. Harry greer MD Age/Sex: 39/F Location: [facility] [place] Status: Signed HPI HPI Chief Complaint: Details: [...] reduced to 40 mg daily by her hand laster who was prescribing this medication. She started [...] the bila (more content not included)... Normal [facility] Absolute lymphocyte countOrd ered By: HEALTH ASSESSMENT on 10-21-2024 Lymphocytes Auto (Unsp spec) [#/Vol] 2.20 10*3/uL 0.83-4.51 [facility] Absolute neutrophil countOrd ered By: HEALTH ASSESSMENT on 10-21-2024 Neutrophils (Bld) [#/Vol] 5.0 10*3/uL 2.0-7.7 [facility] Absolute nucleated red blood cell countOrdered By: HEALTH ASSESSMENT on 10-21-2024 Nucleated RBC (Bld) [#/Vol] 0.00 10*3/uL 0-5 [facility] Anion gap in Serum or Plasma Ordered By: HEALTH ASSESSMENT on 10-21-2024 Anion gap [Moles/Vol] 12 mmol/L 5-15 [facility] BUN/creatinine ratioOrdered By: HEALTH ASSESSMENT on 10-21-2024 Urea nitrogen/Creatinine [Mass ratio] 11.7 mg/mg 10- [facility] Bilirubin directOrdered By: HEALTH ASSESSMENT on 10-21-2024 Bilirubin.direct [Mass/Vol] 0.21 mg/dL 0.00-0.30 [facility] Bilirubin, totalOrdered By: HEALTH ASSESSMENT on 10-21-2024 Bilirubin [Mass/Vol] 0.55 mg/dL 0.00-1.30 [facility] Blood band neutrophil count as percentage of total leukocytesOrdered By: HEALTH ASSESSMENT on 10-21-2024 Band form neutrophils/100 WBC (Bld) 61.8 % 47-70 [facility] CBC, Employeeon 10-21-2024 Absolute Lymph 2.20 X10 3/uL Normal 0.83-4.51 [facility] Comment on above: Performed By: #### L 400.0100, L500.2900, L100.0200 ####[facility] [address] [place], [address] Absolute Neut 5.0 X10 3/uL Normal 2.0-7.7 [facility] Comment on above: Performed By: #### L 400.0100, L500.2900, L100.0200 ####[facility] [address] [place], [address] Basophils/100 WBC (Bld) 0.6 % Normal 0-1 [facility] Comment on above: Performed By: #### L 400.0100, L500.2900, L100.0200 ####[facility] [address] [place], [address] Eosinophils/100 WBC (Bld) 1.9 % Normal 0-5 [facility] Comment on above: Performed By: #### L 400.0100, L500.2900, L100.0200 ####[facility] [address] [place], [address] Erythrocyte distribution width (RBC) [Ratio] 12.7 % Normal 11.6-14.6 [facility] Comment on above: Performed By: #### L 400.0100, L500.2900, L100.0200 ####[facility] [address] [place], [address] Hematocrit (Bld) [Volume fraction] 35.6 % Low 37-47 [facility] Comment on above: Performed By: #### L 400.0100, L500.2900, L100.0200 ####[facility] [address] [place], [address] Hemoglobin (Bld) [Mass/Vol] 12.5 g/dL Normal 12.0-15.0 [facility] Comment on above: Performed By: #### L 400.0100, L500.2900, L100.0200 ####[facility] [address] [place], [address] Lymphocytes/100 WBC (Bld) 27.2 % Normal 19-41 [facility] Comment on above: Performed By: #### L 400.0100, L500.2900, L100.0200 ####[facility] [address] [place], [address] MCH (RBC) [Entitic mass] 31.6 pg Normal 27.0-32.0 [facility] Comment on above: Performed By: #### L 400.0100, L500.2900, L100.0200 ####[facility] [address] [place], [address] MCHC (RBC) [Mass/Vol] 35.1 g/dL Normal 32-36 [facility] Comment on above: Performed By: #### L 400.0100, L500.2900, L100.0200 ####[facility] [address] [place], [address] MCV (RBC) [Entitic vol] 89.9 fL Normal 81-99 [facility] Comment on above: Performed By: #### L 400.0100, L500.2900, L100.0200 ####[facility] [address] [place], [address] Monocytes/100 WBC (Bld) 8.3 % Normal 0-10 [facility] Comment on above: Performed By: #### L 400.0100, L500.2900, L100.0200 ####[facility] [address] [place], [address] Neutrophils/100 WBC (Bld) 61.8 % Normal 47-70 [facility] Comment on above: Performed By: #### L 400.0100, L500.2900, L100.0200 ####[facility] [address] [place], [address] NRBC # 0.00 10 3/uL Normal 0-5 [facility] Comment on above: Performed By: #### L 400.0100, L500.2900, L100.0200 ####[facility] [address] [place], [address] Nucleated RBC (Bld) [#/Vol] 0 10*3/uL Normal 0-5 [facility] Comment on above: Performed By: #### L 400.0100, L500.2900, L100.0200 ####[facility] [address] [place], [address] Platelet mean volume (Bld) [Entitic vol] 10.2 fL Normal 6.2-12.0 [facility] Comment on above: Performed By: #### L 400.0100, L500.2900, L100.0200 ####[facility] [address] [place], [address] Platelets (Bld) [#/Vol] 309 10*3/uL Normal 150-450 [facility] Comment on above: Performed By: #### L 400.0100, L500.2900, L100.0200 ####[facility] [address] [place], [address] RBC (Bld) [#/Vol] 3.96 10*6/uL Low 4.2-5.4 [facility] Comment on above: Performed By: #### L 400.0100, L500.2900, L100.0200 ####[facility] [address] [place], [address] RDW SD 41.8 fl Normal 35.1-43.9 [facility] Comment on above: Performed By: #### L 400.0100, L500.2900, L100.0200 ####[facility] [address] [place], [address] WBC (Bld) [#/Vol] 8.1 10*3/uL Normal 4.4-11.0 [facility] Comment on above: Performed By: #### L 400.0100, L500.2900, L100.0200 ####[facility] [address] [place], [address] Calculated very low density lipoprotein (VLDL) cholesterol measurementOrdered By: HEALTH ASSESSMENT on 10-21-2024 Calculated very low density lipoprotein (VLDL) cholesterol measurement 18 mg/dL 5-40 [facility] Carbon dioxide, total [Moles /volume] in Central venous bloodOrdered By: HEALTH ASSESSMENT on 10-21-2024 CO2 [Moles/Vol] 23.3 mmol/L 21.0-32.0 [facility] Chloride assayOrdered By: HE ALTH ASSESSMENT on 10-21-2024 Chloride [Moles/Vol] 106 mmol/L 98-108 [facility] Employee Profileon LDH 190 U/L Normal 84-246 [facility] Comment on above: Performed By: #### L 400.0100, L500.2900, L100.0200 ####[facility] [address] [place], [address] Phosphate [Mass/Vol] 3.7 mg/dL Normal 2.7-4.5 [facility] Comment on above: Performed By: #### L 400.0100, L500.2900, L100.0200 ####[facility] [address] [place], [address] URIC 4.9 mg/dL Normal 2.6-6.0 [facility] Comment on above: Result Comment: The drugs N-Acetylcysteine and Metamizole may falsely depress this assay. Performed By: #### L 400.0100, L500.2900, L100.0200 ####[facility] [address] [place], [address] Erythrocyte distribution wid th ratioOrdered By: HEALTH ASSESSMENT on 10-21-2024 Erythrocyte distribution width (RBC) [Ratio] 12.7 % 11.6-14.6 [facility] Erythrocyte distribution wid th standard deviationOrdered By: HEALTH ASSESSMENT on 10-21-2024 Erythrocyte distribution width (RBC) [Ratio] 41.8 fl 35.1-43.9 [facility] Glomerular filtration rate ( GFR) estimation/1.73 sq m using serum, plasma, or whole bOrdered By: HEALTH ASSESSMENT on 10-21-2024 GFR/1.73 sq M.predicted among non-blacks MDRD (S/P/Bld) [Vol rate/Area] 88 mL/min/{1.73_m2} >60 [facility] Comment on above: mL/min/1.73m2 CKD-EP I Creatinine Equation (2020) Hematocrit Auto (Bld) [Volum e fraction]Ordered By: HEALTH ASSESSMENT on 10-21-2024 Hematocrit (Bld) [Volume fraction] 35.6 % Low 37-47 [facility] Hemoglobin measurementOrdere d By: HEALTH ASSESSMENT on 10-21-2024 Hemoglobin (Bld) [Mass/Vol] 12.5 g/dL 12.0-15.0 [facility] LDL calc ser/plasOrdered By: HEALTH ASSESSMENT on 10-21-2024 Cholesterol in LDL [Mass/Vol] 117 mg/dL [facility] Comment on above: Jwxfdozmfh=964-921 m g/dL & Higher Lici=138 mg/dL or greaterFriedwald Equation for LDL-C Laboratory - Chemistry and C hemistry - challengeOrdered By: HEALTH ASSESSMENT on 10-21-2024 AST [Catalytic activity/Vol] 17 U/L <32 [facility] Lactate dehydrogenase (LDH) measurementOrdered By: HEALTH ASSESSMENT on 10-21-2024 LDH [Catalytic activity/Vol] 190 U/L 84-246 [facility] MCV (mean corpuscular volume ) determinationOrdered By: HEALTH ASSESSMENT on 10-21-2024 MCV (RBC) [Entitic vol] 89.9 fL 81-99 [facility] Mean corpuscular hemoglobin (MCH) determinationOrdered By: HEALTH ASSESSMENT on 10-21-2024 MCH (RBC) [Entitic mass] 31.6 pg 27.0-32.0 [facility] Mean corpuscular hemoglobin concentration (MCHC) determinationOrdered By: HEALTH ASSESSMENT on 10-21-2024 MCHC (RBC) [Mass/Vol] 35.1 g/dL 32-36 [facility] Mean platelet volume determi nationOrdered By: HEALTH ASSESSMENT on 10-21-2024 Platelet mean volume (Bld) [Entitic vol] 10.2 fL 6.2-12.0 [facility] Nucleated red blood cell per centageOrdered By: HEALTH ASSESSMENT on 10-21-2024 Nucleated RBC/100 WBC (Bld) [Ratio] 0 % 0-5 [facility] Platelet countOrdered By: HE ALTH ASSESSMENT on 10-21-2024 Platelets (Bld) [#/Vol] 309 10*3/uL 150-450 [facility] Potassium measurement (mass/ volume)Ordered By: HEALTH ASSESSMENT on 10-21-2024 Potassium (Unsp spec) [Mass/Vol] 3.5 mmol/L 3.3-5.1 [facility] RBC Auto (Bld) [#/Vol]Ordere d By: HEALTH ASSESSMENT on 10-21-2024 RBC (Bld) [#/Vol] 3.96 10*6/uL Low 4.2-5.4 [facility] Screening total cholesterol/ high density lipoprotein (HDL) cholesterol ratioOrdered By: HEALTH ASSESSMENT on 10-21-2024 Cholesterol.total/Jennifer sterol in HDL [Mass ratio] 3.28 {ratio} [facility] Serum creatinine measurement (mass/volume)Ordered By: HEALTH ASSESSMENT on 10-21-2024 Creatinine [Mass/Vol] 0.86 mg/dL 0.70-1.20 [facility] Serum globulin measurementOr dered By: HEALTH ASSESSMENT on 10-21-2024 Globulin (S) [Mass/Vol] 2.5 g/dL 2.2-4.2 [facility] Serum glucose measurement (m ass/volume)Ordered By: HEALTH ASSESSMENT on 10-21-2024 Glucose [Mass/Vol] 90 mg/dL 70-99 [facility] Serum or plasma alanine zimmer otransferase (ALT) measurementOrdered By: HEALTH ASSESSMENT on 10-21-2024 ALT [Catalytic activity/Vol] 16 U/L <35 [facility] Serum or plasma albumin milton urement (mass/volume)Ordered By: HEALTH ASSESSMENT on 10-21-2024 Albumin [Mass/Vol] 4.3 g/dL 3.5-5.0 [facility] Serum or plasma albumin/glob ulin mass ratioOrdered By: HEALTH ASSESSMENT on 10-21-2024 Albumin/Globulin [Mass ratio] 1.7 {ratio} 0.9-2.4 [facility] Serum or plasma alkaline musa sphatase measurementOrdered By: HEALTH ASSESSMENT on 10-21-2024 ALP [Catalytic activity/Vol] 42 U/L 35-104 [facility] Serum or plasma calcium milton urement (mass/volume)Ordered By: HEALTH ASSESSMENT on 10-21-2024 Calcium [Mass/Vol] 9.5 mg/dL 7.6-11.0 [facility] Serum or plasma cholesterol in HDL measurement (mass/volume)Ordered By: HEALTH ASSESSMENT on 10-21-2024 Cholesterol in HDL [Mass/Vol] 60 mg/dL >40 [facility] Comment on above: National Cholesterol Education Program (NCEP) guidelines:<40 mg/dL: Low HDL-cholesterol (major risk factor for CHD)>= 60 mg/dL: High HDL-cholesterol (negative risk factor for CHD)HDL-cholesterol is affected by a number of factors, e.g. smoking, exercise, hormones, sex and age. Serum or plasma cholesterol measurement (mass/volume)Ordered By: HEALTH ASSESSMENT on 10-21-2024 Cholesterol [Mass/Vol] 195 mg/dL <201 [facility] Comment on above: Cholesterol level, D esirable <200 mg/dLBorderline high cholesterol 200-239 mg/dLHigh cholesterol >=240 mg/dLRecommendations of the NCEP Adult Treatment Panel for the following risk-cutoff thresholds for the [place] population. Serum or plasma urea nitroge n measurement (mass/volume)Ordered By: HEALTH ASSESSMENT on 10-21-2024 Urea nitrogen [Mass/Vol] 10 mg/dL 4-19 [facility] Serum or plasma uric acid me asurement (mass/volume)Ordered By: HEALTH ASSESSMENT on 10-21-2024 Urate [Mass/Vol] 4.9 mg/dL 2.6-6.0 [facility] Comment on above: The drugs N-Acetylcy steine and Metamizole may falsely depress this assay. Sodium levelOrdered By: [facility] ASSESSMENT on 10-21-2024 Sodium [Moles/Vol] 141 mmol/L 133-145 [facility] Total proteinOrdered By: [facility] ASSESSMENT on 10-21-2024 Protein [Mass/Vol] 6.8 g/dL 5.9-8.4 [facility] Triglycerides measurementOrd ered By: HEALTH ASSESSMENT on 10-21-2024 Triglyceride [Mass/Vol] 92 mg/dL <199 [facility] Comment on above: The drugs N-Acetylcy steine and Metamizole may falsely depress this assay. Normal range: <150 mg/dLBorderline High: 150-199 mg/dLHigh: 200-499 mg/dLVery High: >500 mg/dL Urinalysis, Employeeon 10-21 BILIRUBIN URINE Normal Negative [facility] Comment on above: Order Comment: Urine , Random Result Comment: UTO Performed By: #### L 400.0100, L500.2900, L100.0200 ####[facility] [address] [place], [place], [id number] Clarity (U) Normal Clear [facility] Comment on above: Order Comment: Urine , Random Result Comment: UTO Performed By: #### L 400.0100, L500.2900, L100.0200 ####[facility] [address] [place], [place], [id number] Color (U) Normal Yellow [facility] Comment on above: Order Comment: Urine , Random Result Comment: UTO Performed By: #### L 400.0100, L500.2900, L100.0200 ####[facility] [address] [place], [address] GLUCOSE, UR Normal Normal [facility] Comment on above: Order Comment: Urine , Random Result Comment: UTO Performed By: #### L 400.0100, L500.2900, L100.0200 ####[facility] [address] [place], [address] KETONE UR Normal Negative [facility] Comment on above: Order Comment: Urine , Random Result Comment: UTO Performed By: #### L 400.0100, L500.2900, L100.0200 ####[facility] [address] [place], [address] LEUK ESTERASE Normal Negative [facility] Comment on above: Order Comment: Urine , Random Result Comment: UTO Performed By: #### L 400.0100, L500.2900, L100.0200 ####[facility] [address] [place], [address] Nitrite Ql (U) Normal Negative [facility] Comment on above: Order Comment: Urine , Random Result Comment: UTO Performed By: #### L 400.0100, L500.2900, L100.0200 ####[facility] [address] [place], [address] OCCULT BLOOD-UR Normal Negative [facility] Comment on above: Order Comment: Urine , Random Result Comment: UTO Performed By: #### L 400.0100, L500.2900, L100.0200 ####[facility] [address] [place], [address] pH UR Normal 5.0 - 8.0 [facility] Comment on above: Order Comment: Urine , Random Result Comment: UTO Performed By: #### L 400.0100, L500.2900, L100.0200 ####[facility] [address] [place], [address] PROT DIPSTX Normal Negative [facility] Comment on above: Order Comment: Urine , Random Result Comment: UTO Performed By: #### L 400.0100, L500.2900, L100.0200 ####[facility] [address] [place], [address] SP.GR. DIPSTX Normal 1.002-1.03 0 [facility] Comment on above: Order Comment: Urine , Random Result Comment: UTO Performed By: #### L 400.0100, L500.2900, L100.0200 ####[facility] [address] [place], [address] UR Preservative Normal [facility] Comment on above: Order Comment: Urine , Random Result Comment: UTO Performed By: #### L 400.0100, L500.2900, L100.0200 ####[facility] [address] [place], [address] UROBILI Normal Normal [facility] Comment on above: Order Comment: Urine , Random Result Comment: UTO Performed By: #### L 400.0100, L500.2900, L100.0200 ####[facility] [address] [place], [address] White blood cell (WBC) count Ordered By: HEALTH ASSESSMENT on 10-21-2024 WBC (Bld) [#/Vol] 8.1 10*3/uL 4.4-11.0 [facility] Anion gap in Serum or Plasma Ordered By: Ledy Foley on 09-17-2024 Anion gap [Moles/Vol] 11 mmol/L 5-15 [facility] BUN/creatinine ratioOrdered By: Ledy Foley on 09-17-2024 Urea nitrogen/Creatinine [Mass ratio] 11.8 mg/mg 10-20 [facility] Bilirubin, totalOrdered By: Ledy Foley on 09-17-2024 Bilirubin [Mass/Vol] 0.49 mg/dL 0.00-1.30 [facility] Carbon dioxide, total [Moles /volume] in Central venous bloodOrdered By: Ledy Foley on 09-17-2024 CO2 [Moles/Vol] 23.2 mmol/L 21.0-32.0 [facility] Chloride assayOrdered By: Chai Foley on 09-17-2024 Chloride [Moles/Vol] 107 mmol/L 98-108 [facility] Comprehensive Metabolic Prof ilon 09-17-2024 Albumin [Mass/Vol] 4.4 g/dL Normal 3.5-5.0 [facility] Comment on above: Performed By: #### L 500.4050 #### [facility] [address] [place], [place], [id number] (154) Albumin/Globulin [Mass ratio] 1.7 {ratio} Normal 0.9-2.4 [facility] Comment on above: Performed By: #### L 500.4050 #### [facility] [address] [place], [address] ALK PHOS 40 U/L Normal 35-104 [facility] Comment on above: Performed By: #### L 500.4050 #### [facility] [address] [place], [address] ALT [Catalytic activity/Vol] 19 U/L Normal <=34 [facility] Comment on above: Performed By: #### L 500.4050 #### [facility] [address] [place], [address] AST [Catalytic activity/Vol] 23 U/L Normal <=31 [facility] Comment on above: Performed By: #### L 500.4050 #### [facility] [address] [place], [address] Bilirubin [Mass/Vol] 0.49 mg/dL Normal 0.00-1.30 [facility] Comment on above: Performed By: #### L 500.4050 #### [facility] [address] [place], [address] BUN/CRE 11.8 RATIO Normal 10-20 [facility] Comment on above: Performed By: #### L 500.4050 #### [facility] [address] [place], [address] Calcium [Mass/Vol] 9.7 mg/dL Normal 7.6-11.0 [facility] Comment on above: Performed By: #### L 500.4050 #### [facility] [address] [place], [address] Chloride [Moles/Vol] 107 mmol/L Normal 98-108 [facility] Comment on above: Performed By: #### L 500.4050 #### [facility] [address] [place], [address] CO2 [Moles/Vol] 23.2 mmol/L Normal 21.0-32.0 [facility] Comment on above: Performed By: #### L 500.4050 #### [facility] [address] [place], [address] Creatinine [Mass/Vol] 0.99 mg/dL Normal 0.70-1.20 [facility] Comment on above: Performed By: #### L 500.4050 #### [facility] [address] [place], [address] GAP 11 Normal 5-15 [facility] Comment on above: Performed By: #### L 500.4050 #### [facility] Laboratory [address] [place], [address] GFR/1.73 sq M.predicted among non-blacks MDRD (S/P/Bld) [Vol rate/Area] 74 mL/min/{1.73_m2} Normal >60 [facility] Comment on above: Result Comment: mL/m in/1.73m2 CKD-EPI Creatinine Equation (2020) Performed By: #### L 500.4050 #### [facility] [address] [place], [address] Globulin (S) [Mass/Vol] 2.6 g/dL Normal 2.2-4.2 [facility] Comment on above: Performed By: #### L 500.4050 #### [facility] [address] [place], [address] Glucose [Mass/Vol] 93 mg/dL Normal 70-99 [facility] Comment on above: Performed By: #### L 500.4050 #### [facility] [address] [place], [address] Potassium [Moles/Vol] 4.1 mmol/L Normal 3.3-5.1 [facility] Comment on above: Performed By: #### L 500.4050 #### [facility] [address] [place], [address] Sodium [Moles/Vol] 141 mmol/L Normal 133-145 [facility] Comment on above: Performed By: #### L 500.4050 #### [facility] [address] [place], [address] T PROT 7.0 g/dL Normal 5.9-8.4 [facility] Comment on above: Performed By: #### L 500.4050 #### [facility] [address] [place], [address] Urea nitrogen [Mass/Vol] 12 mg/dL Normal 4-19 [facility] Comment on above: Performed By: #### L 500.4050 #### [facility] [address] [place], [address] Glomerular filtration rate ( GFR) estimation/1.73 sq m using serum, plasma, or whole bOrdered By: Ledy Foley on 09-17-2024 GFR/1.73 sq M.predicted among non-blacks MDRD (S/P/Bld) [Vol rate/Area] 74 mL/min/{1.73_m2} >60 [facility] Comment on above: mL/min/1.73m2 CKD-EP I Creatinine Equation (2020) Laboratory - Chemistry and C hemistry - challengeOrdered By: Ledy Foley on 09-17-2024 AST [Catalytic activity/Vol] 23 U/L <32 [facility] Potassium measurement (mass/ volume)Ordered By: Shalarupinder Foley on 09-17-2024 Potassium (Unsp spec) [Mass/Vol] 4.1 mmol/L 3.3-5.1 [facility] Serum creatinine measurement (mass/volume)Ordered By: Ledy Foley on 09-17-2024 Creatinine [Mass/Vol] 0.99 mg/dL 0.70-1.20 [facility] Serum globulin measurementOr dered By: Ledy Foley on 09-17-2024 Globulin (S) [Mass/Vol] 2.6 g/dL 2.2-4.2 [facility] Serum glucose measurement (m ass/volume)Ordered By: Ledy Foley on 09-17-2024 Glucose [Mass/Vol] 93 mg/dL 70-99 [facility] Serum or plasma alanine zimmer otransferase (ALT) measurementOrdered By: Ledy Foley on 09-17-2024 ALT [Catalytic activity/Vol] 19 U/L <35 [facility] Serum or plasma albumin milton urement (mass/volume)Ordered By: Ledy Foley on 09-17-2024 Albumin [Mass/Vol] 4.4 g/dL 3.5-5.0 [facility] Serum or plasma albumin/glob ulin mass ratioOrdered By: [facility] on 09-17-2024 Albumin/Globulin [Mass ratio] 1.7 {ratio} 0.9-2.4 [facility] Serum or plasma alkaline musa sphatase measurementOrdered By: Shalarupinder Foley on 09-17-2024 ALP [Catalytic activity/Vol] 40 U/L 35-104 [facility] Serum or plasma calcium milton urement (mass/volume)Ordered By: Ledy Foley on 09-17-2024 Calcium [Mass/Vol] 9.7 mg/dL 7.6-11.0 [facility] Serum or plasma urea nitroge n measurement (mass/volume)Ordered By: Aaronn Beam on 09-17-2024 Urea nitrogen [Mass/Vol] 12 mg/dL 4-19 [facility] Sodium levelOrdered By: Shala jarad Beam on 09-17-2024 Sodium [Moles/Vol] 141 mmol/L 133-145 [facility] Total proteinOrdered By: Art aguirreun Beam on 09-17-2024 Protein [Mass/Vol] 7.0 g/dL 5.9-8.4 [facility] 12 Lead EKGon 09-07-2024 12 Lead EKG [facility] Cardiovascular Services [address] [place] [address] 12 Lead EKG 09/07/24 1120 MR#: [id number] Acct: [id number] Name: ANA MARIA JOSEPH ANN Rep #: [id number] : 1985 39 From: Daniel Welch MD [...] Otherwise normal ECG Confirmed by Daniel Welch ([id number]), tape editor DAVEY KILGORE ([id number]) on 09/08/2024 1:48:45 PM Referred By: Confirmed By: Daniel Welch 09/08/24 1348 Date Daniel Welch MD CC: HANG Batista; Dr. Sergo Olsen MD Signed Normal [facility] Absolute lymphocyte countOrd ered By: Sergo Olsen on 09-07-2024 Lymphocytes Auto (Unsp spec) [#/Vol] 1.98 10*3/uL 0.83-4.51 [facility] Absolute neutrophil countOrd ered By: Sergodiego Olsen on 09-07-2024 Neutrophils (Bld) [#/Vol] 5.8 10*3/uL 2.0-7.7 [facility] Anion gap in Serum or Plasma Ordered By: Sergodiego Olsen on 09-07-2024 Anion gap [Moles/Vol] 13 mmol/L 07-01 [facility] Automated lymphocyte count a s percentage of total leukocytesOrdered By: Sergo Olsen on 09-07-2024 Lymphocytes/100 WBC Auto (Unsp spec) 23.5 % [facility] BUN/creatinine ratioOrdered By: Sergo Olsen on 09-07-2024 Urea nitrogen/Creatinine [Mass ratio] 14.9 mg/mg - [facility] Basic Metabolic Profile (BMP )on 09-07-2024 BUN/CRE 14.9 RATIO Normal 12-06 [facility] Comment on above: Performed By: #### L 100.0100, L500.2500, L501.4021 ####[facility] [address] [place], [address] Calcium [Mass/Vol] 9.6 mg/dL Normal 7.6-11.0 [facility] Comment on above: Performed By: #### L 100.0100, L500.2500, L501.4021 ####[facility] [address] [place], [address] Chloride [Moles/Vol] 105 mmol/L Normal 98-108 [facility] Comment on above: Performed By: #### L 100.0100, L500.2500, L501.4021 ####[facility] [address] [place], [address] CO2 [Moles/Vol] 21.8 mmol/L Normal 21.0-32.0 [facility] Comment on above: Performed By: #### L 100.0100, L500.2500, L501.4021 ####[facility] [address] [place], [address] Creatinine [Mass/Vol] 0.94 mg/dL Normal 0.70-1.20 [facility] Comment on above: Performed By: #### L 100.0100, L500.2500, L501.4021 ####[facility] [address] [place], [address] ECRCL 91.98 ml/min Normal 50-250 [facility] Comment on above: Performed By: #### L 100.0100, L500.2500, L501.4021 ####[facility] [address] [place], [address] GAP 13 Normal 5-15 [facility] Comment on above: Performed By: #### L 100.0100, L500.2500, L501.4021 ####[facility] [address] [place], [address] GFR/1.73 sq M.predicted among non-blacks MDRD (S/P/Bld) [Vol rate/Area] 78 mL/min/{1.73_m2} Normal >60 [facility] Comment on above: Result Comment: mL/m in/1.73m2 CKD-EPI Creatinine Equation (2020) Performed By: #### L 100.0100, L500.2500, L501.4021 ####[facility] [address] [place], [address] Glucose [Mass/Vol] 81 mg/dL Normal 70-99 [facility] Comment on above: Performed By: #### L 100.0100, L500.2500, L501.4021 ####[facility] [address] [place], [address] Potassium [Moles/Vol] 3.5 mmol/L Normal 3.3-5.1 [facility] Comment on above: Performed By: #### L 100.0100, L500.2500, L501.4021 ####[facility] [address] [place], [address] Sodium [Moles/Vol] 140 mmol/L Normal 133-145 [facility] Comment on above: Performed By: #### L 100.0100, L500.2500, L501.4021 ####[facility] [address] [place], [address] Urea nitrogen [Mass/Vol] 14 mg/dL Normal 4-19 [facility] Comment on above: Performed By: #### L 100.0100, L500.2500, L501.4021 ####[facility] [address] [place], [address] Basophil percentageOrdered B y: Sergo Olsen on 09-07-2024 Basophils/100 WBC (Bld) 0.5 % 0-1 [facility] CBC W/Diff, Automatedon 08-18 Absolute Lymph 1.98 X10 3/uL Normal 0.83-4.51 [facility] Comment on above: Performed By: #### L 100.0100, L500.2500, L501.4021 ####[facility] [address] [place], [address] Absolute Neut 5.8 X10 3/uL Normal 2.0-7.7 [facility] Comment on above: Performed By: #### L 100.0100, L500.2500, L501.4021 ####[facility] [address] [place], [address] Basophils/100 WBC (Bld) 0.5 % Normal 0-1 [facility] Comment on above: Performed By: #### L 100.0100, L500.2500, L501.4021 ####[facility] [address] [place], [address] Eosinophils/100 WBC (Bld) 0.9 % Normal 0-5 [facility] Comment on above: Performed By: #### L 100.0100, L500.2500, L501.4021 ####[facility] [address] [place], [address] Erythrocyte distribution width (RBC) [Ratio] 12.9 % Normal 11.6-14.6 [facility] Comment on above: Performed By: #### L 100.0100, L500.2500, L501.4021 ####[facility] [address] [place], [address] Hematocrit (Bld) [Volume fraction] 36.2 % Low 37-47 [facility] Comment on above: Performed By: #### L 100.0100, L500.2500, L501.4021 ####[facility] [address] [place], [address] Hemoglobin (Bld) [Mass/Vol] 12.5 g/dL Normal 12.0-15.0 [facility] Comment on above: Performed By: #### L 100.0100, L500.2500, L501.4021 ####[facility] [address] [place], [address] IG% 0.200 Normal 0.0-0.9 [facility] Comment on above: Result Comment: IG% - Immature Granulocytes (promyelocytes, myelocytes and metamyelocytes) > 1% indicates that a LEFT SHIFT is Present. Performed By: #### L 100.0100, L500.2500, L501.4021 ####[facility] [address] [place], [address] Lymphocytes/100 WBC (Bld) 23.5 % Normal 19-41 [facility] Comment on above: Performed By: #### L 100.0100, L500.2500, L501.4021 ####[facility] [address] [place], [address] MCH (RBC) [Entitic mass] 31.6 pg Normal 27.0-32.0 [facility] Comment on above: Performed By: #### L 100.0100, L500.2500, L501.4021 ####[facility] [address] [place], [address] MCHC (RBC) [Mass/Vol] 34.5 g/dL Normal 32-36 [facility] Comment on above: Performed By: #### L 100.0100, L500.2500, L501.4021 ####[facility] [address] [place], [address] MCV (RBC) [Entitic vol] 91.4 fL Normal 81-99 [facility] Comment on above: Performed By: #### L 100.0100, L500.2500, L501.4021 ####[facility] [address] [place], [address] Monocytes/100 WBC (Bld) 6.2 % Normal 0-10 [facility] Comment on above: Performed By: #### L 100.0100, L500.2500, L501.4021 ####[facility] [address] [place], [address] Neutrophils/100 WBC (Bld) 68.7 % Normal 47-70 [facility] Comment on above: Performed By: #### L 100.0100, L500.2500, L501.4021 ####[facility] [address] [place], [address] Nucleated RBC (Bld) [#/Vol] 0 10*3/uL Normal 0-5 [facility] Comment on above: Performed By: #### L 100.0100, L500.2500, L501.4021 ####[facility] [address] [place], [address] Platelet mean volume (Bld) [Entitic vol] 9.9 fL Normal 6.2-12.0 [facility] Comment on above: Performed By: #### L 100.0100, L500.2500, L501.4021 ####[facility] [address] [place], [address] Platelets (Bld) [#/Vol] 259 10*3/uL Normal 150-450 [facility] Comment on above: Performed By: #### L 100.0100, L500.2500, L501.4021 ####[facility] [address] [place], [address] RBC (Bld) [#/Vol] 3.96 10*6/uL Low 4.2-5.4 [facility] Comment on above: Performed By: #### L 100.0100, L500.2500, L501.4021 ####[facility] [address] [place], [address] RDW SD 43.4 fl Normal 35.1-43.9 [facility] Comment on above: Performed By: #### L 100.0100, L500.2500, L501.4021 ####[facility] [address] [place], [address] WBC (Bld) [#/Vol] 8.4 10*3/uL Normal 4.4-11.0 [facility] Comment on above: Performed By: #### L 100.0100, L500.2500, L501.4021 ####[facility] [address] [place], [address] Carbon dioxide, total [Moles /volume] in Central venous bloodOrdered By: Sergo Olsen on 09-07-2024 CO2 [Moles/Vol] 21.8 mmol/L 21.0-32.0 [facility] Chest 1 View (Portable)on Chest 1 View (Portable) [facility] Imaging Services [address] [place] [address] Chest 1 View (Portable) MR#: [id number] Acct: [id number] Name: ANA MARIA JOSEPH ANN Rep #: [id number] : 1985 F 39 From: Elvira Greer nd, MD PCP: HANG Jameson Status: REG ER Study: Chest 1 View (Portable) Date of Exam: 09/07/24 Exam# [id number] Ordering Dr: Sergo Olsen MD PROCEDURE: CHEST 1 VIEW (PORTABLE) 09/07/2024 REASON FOR EXAM: CHEST PAIN TECHNIQUE: Frontal view of the chest. COMPARISON: Chest radiograph 11/18/2017. FINDINGS: Hardware: None. Heart: The heart size is normal. Lungs: No focal consolidation, pleural effusion or pneumothorax. Bones: The bones are unremarkable. RAD/Chest 1 View (Portable) IMPRESSION: Negative Chest. Reading Location: [facility]AL[facility] CC: PRECAST WORKER-C Angus Batista; Dr. Sergo Olsen MD Manager Book: Signed Normal [facility] Chloride assayOrdered By: Eyad Olsen on 09-07-2024 Chloride [Moles/Vol] 105 mmol/L 98-108 [facility] Emergency Department Summary on 09-07-2024 Emergency Department Summary [facility] Medical Records Department [address] [place] [address] Emergency Department Summary 09/07/24 MR#: [id number] Acct: [id number] Name: ANA MARIA JOSEPH ANN Rep #: [id number] : 1985 39 From: Sergo Olsen MD [...] seen by Lilian [facility] at [facility]. Her most recent visit was a [...] and Family History; Negative for Marfan's Syndrome [facility] Medical History Left hip pain Cardiology follow-up [...] subcutaneous pe (more content not included)... Normal [facility] Eosinophil percentageOrdered By: Sergo Olsen on 09-07-2024 Eosinophils/100 WBC (Bld) 0.9 % 0-5 [facility] Erythrocyte distribution wid th ratioOrdered By: Sergo Olsen on 09-07-2024 Erythrocyte distribution width (RBC) [Ratio] 12.9 % 11.6-14.6 [facility] Erythrocyte distribution wid th standard deviationOrdered By: Sergo Olsen on 09-07-2024 Erythrocyte distribution width (RBC) [Ratio] 43.4 fl 35.1-43.9 [facility] Glomerular filtration rate ( GFR) estimation/1.73 sq m using serum, plasma, or whole bOrdered By: Sergo Olsen on 09-07-2024 GFR/1.73 sq M.predicted among non-blacks MDRD (S/P/Bld) [Vol rate/Area] 78 mL/min/{1.73_m2} >60 [facility] Comment on above: mL/min/1.73m2 CKD-EP I Creatinine Equation (2020) Hematocrit Auto (Bld) [Volum e fraction]Ordered By: Sergo Olsen on 09-07-2024 Hematocrit (Bld) [Volume fraction] 36.2 % Low 37-47 [facility] Hemoglobin measurementOrdere d By: Sergo Olsen on 09-07-2024 Hemoglobin (Bld) [Mass/Vol] 12.5 g/dL 12.0-15.0 [facility] Immature granulocytes/100 WB C Auto (Bld)Ordered By: Sergo Olsen on 09-07-2024 Immature granulocytes/100 WBC (Bld) 0.200 % 0.0-0.9 [facility] Comment on above: IG% - Immature Granu locytes (promyelocytes, myelocytes and metamyelocytes) > 1% indicates that a LEFT SHIFT is Present. L501.4021on 09-07-2024 Trop T High Sen < 6 Normal <=14 [facility] Comment on above: Performed By: #### L 100.0100, L500.2500, L501.4021 ####[facility] [address] [place], [place], [address] MCV (mean corpuscular volume ) determinationOrdered By: Sergo Olsen on 09-07-2024 MCV (RBC) [Entitic vol] 91.4 fL 81-99 [facility] Mean corpuscular hemoglobin (MCH) determinationOrdered By: Sergo Olsen on 09-07-2024 MCH (RBC) [Entitic mass] 31.6 pg 27.0-32.0 [facility] Mean corpuscular hemoglobin concentration (MCHC) determinationOrdered By: Sergo Olsen on 09-07-2024 MCHC (RBC) [Mass/Vol] 34.5 g/dL 32-36 [facility] Mean platelet volume determi nationOrdered By: Sergo Olsen on 09-07-2024 Platelet mean volume (Bld) [Entitic vol] 9.9 fL 6.2-12.0 [facility] Monocyte percentageOrdered B y: Sergo Olsen on 09-07-2024 Monocytes/100 WBC (Bld) 6.2 % 0-10 [facility] Neutrophil percentageOrdered By: Sergo Olsen on 09-07-2024 Neutrophils/100 WBC (Bld) 68.7 % 47-70 [facility] Nucleated red blood cell per centageOrdered By: Sergo Olsen on 09-07-2024 Nucleated RBC/100 WBC (Bld) [Ratio] 0 % 0-5 [facility] Platelet countOrdered By: Eyad Olsen on 09-07-2024 Platelets (Bld) [#/Vol] 259 10*3/uL 150-450 [facility] Potassium measurement (mass/ volume)Ordered By: Sergo Olsen on 09-07-2024 Potassium (Unsp spec) [Mass/Vol] 3.5 mmol/L 3.3-5.1 [facility] RBC Auto (Bld) [#/Vol]Ordere d By: Sergo Olsen on 09-07-2024 RBC (Bld) [#/Vol] 3.96 10*6/uL Low 4.2-5.4 [facility] Serum creatinine measurement (mass/volume)Ordered By: Sergo Olsen on 09-07-2024 Creatinine [Mass/Vol] 0.94 mg/dL 0.70-1.20 [facility] Serum glucose measurement (m ass/volume)Ordered By: Sergo Olsen on 09-07-2024 Glucose [Mass/Vol] 81 mg/dL 70-99 [facility] Serum or plasma calcium milton urement (mass/volume)Ordered By: Sergo Olsen on 09-07-2024 Calcium [Mass/Vol] 9.6 mg/dL 7.6-11.0 [facility] Serum or plasma urea nitroge n measurement (mass/volume)Ordered By: Sergo Olsen on 09-07-2024 Urea nitrogen [Mass/Vol] 14 mg/dL 4-19 [facility] Sodium levelOrdered By: Sergo Olsen on 09-07-2024 Sodium [Moles/Vol] 140 mmol/L 133-145 [facility] Troponin T HS 2 HRon 025 Trop T High Sen < 6 Normal <=14 [facility] Comment on above: Performed By: #### L 499.0042 ####[facility] [address] [place], [place], [address] Troponin T HS 4 HRon 025 Trop T High Sen Normal <=14 [facility] Comment on above: Result Comment: PT D ISCHARGED Performed By: #### L 499.0043 ####[facility] [address] [place], [place], [address] Troponin T.cardiac [Mass/vol ume] in Serum or Plasma by High sensitivity methodOrdered By: Sergo Olsen on 09-07-2024 Troponin T.cardiac High sensitivity method [Mass/Vol] < 6 ng/L <14 [facility] Troponin T.cardiac High sensitivity method [Mass/Vol] < 6 ng/L <14 [facility] White blood cell (WBC) count Ordered By: Sergo Olsen on 09-07-2024 WBC (Bld) [#/Vol] 8.4 10*3/uL 4.4-11.0 [facility] Absolute lymphocyte countOrd ered By: Ledy Foley on 07-02-2024 Lymphocytes Auto (Unsp spec) [#/Vol] 1.87 10*3/uL 0.83-4.51 [facility] Absolute neutrophil countOrd ered By: Ledy Foley on 07-02-2024 Neutrophils (Bld) [#/Vol] 4.3 10*3/uL 2.0-7.7 [facility] Anion gap in Serum or Plasma Ordered By: Zebulun Beam on 07-02-2024 Anion gap [Moles/Vol] 10 mmol/L 5- [facility] Automated lymphocyte count a s percentage of total leukocytesOrdered By: Zebulun Beam on 07-02-2024 Lymphocytes/100 WBC Auto (Unsp spec) 27.0 % 19-41 [facility] BUN/creatinine ratioOrdered By: Zebulun Beam on 07-02-2024 Urea nitrogen/Creatinine [Mass ratio] 14.2 mg/mg 10-20 [facility] Basophil percentageOrdered B y: Zebulun Beam on 07-02-2024 Basophils/100 WBC (Bld) 0.7 % 0-1 [facility] Bilirubin, totalOrdered By: Zebulun Beam on 07-02-2024 Bilirubin [Mass/Vol] 0.43 mg/dL 0.00-1.30 [facility] CBC W/Diff, Automatedon 06-17 Absolute Lymph 1.87 X10 3/uL Normal 0.83-4.51 [facility] Comment on above: Performed By: #### L 500.4100, L501.9985, L501.9520, L506.1001, L500.4050, L100.0100, L503.0106 ####[facility] [address] [place], [address] Absolute Neut 4.3 X10 3/uL Normal 2.0-7.7 [facility] Comment on above: Performed By: #### L 500.4100, L501.9985, L501.9520, L506.1001, L500.4050, L100.0100, L503.0106 ####[facility] [address] [place], [address] Basophils/100 WBC (Bld) 0.7 % Normal 0-1 [facility] Comment on above: Performed By: #### L 500.4100, L501.9985, L501.9520, L506.1001, L500.4050, L100.0100, L503.0106 ####[facility] [address] [place], [address] Eosinophils/100 WBC (Bld) 2.2 % Normal 0-5 [facility] Comment on above: Performed By: #### L 500.4100, L501.9985, L501.9520, L506.1001, L500.4050, L100.0100, L503.0106 ####[facility] [address] [place], [address] Erythrocyte distribution width (RBC) [Ratio] 13.2 % Normal 11.6-14.6 [facility] Comment on above: Performed By: #### L 500.4100, L501.9985, L501.9520, L506.1001, L500.4050, L100.0100, L503.0106 ####[facility] [address] [place], [address] Hematocrit (Bld) [Volume fraction] 36.0 % Low 37-47 [facility] Comment on above: Performed By: #### L 500.4100, L501.9985, L501.9520, L506.1001, L500.4050, L100.0100, L503.0106 ####[facility] [address] [place], [address] Hemoglobin (Bld) [Mass/Vol] 12.1 g/dL Normal 12.0-15.0 [facility] Comment on above: Performed By: #### L 500.4100, L501.9985, L501.9520, L506.1001, L500.4050, L100.0100, L503.0106 ####[facility] [address] [place], [address] IG% 0.300 Normal 0.0-0.9 [facility] Comment on above: Result Comment: IG% - Immature Granulocytes (promyelocytes, myelocytes and metamyelocytes) > 1% indicates that a LEFT SHIFT is Present. Performed By: #### L 500.4100, L501.9985, L501.9520, L506.1001, L500.4050, L100.0100, L503.0106 ####[facility] [address] [place], [address] Lymphocytes/100 WBC (Bld) 27.0 % Normal 19-41 [facility] Comment on above: Performed By: #### L 500.4100, L501.9985, L501.9520, L506.1001, L500.4050, L100.0100, L503.0106 ####[facility] [address] [place], [address] MCH (RBC) [Entitic mass] 30.5 pg Normal 27.0-32.0 [facility] Comment on above: Performed By: #### L 500.4100, L501.9985, L501.9520, L506.1001, L500.4050, L100.0100, L503.0106 ####[facility] [address] [place], [address] MCHC (RBC) [Mass/Vol] 33.6 g/dL Normal 32-36 [facility] Comment on above: Performed By: #### L 500.4100, L501.9985, L501.9520, L506.1001, L500.4050, L100.0100, L503.0106 ####[facility] [address] [place], [address] MCV (RBC) [Entitic vol] 90.7 fL Normal 81-99 [facility] Comment on above: Performed By: #### L 500.4100, L501.9985, L501.9520, L506.1001, L500.4050, L100.0100, L503.0106 ####[facility] [address] [place], [address] Monocytes/100 WBC (Bld) 7.8 % Normal 0-10 [facility] Comment on above: Performed By: #### L 500.4100, L501.9985, L501.9520, L506.1001, L500.4050, L100.0100, L503.0106 ####[facility] [address] [place], [address] Neutrophils/100 WBC (Bld) 62.0 % Normal 47-70 [facility] Comment on above: Performed By: #### L 500.4100, L501.9985, L501.9520, L506.1001, L500.4050, L100.0100, L503.0106 ####[facility] [address] [place], [address] Nucleated RBC (Bld) [#/Vol] 0 10*3/uL Normal 0-5 [facility] Comment on above: Performed By: #### L 500.4100, L501.9985, L501.9520, L506.1001, L500.4050, L100.0100, L503.0106 ####[facility] [address] [place], [address] Platelet mean volume (Bld) [Entitic vol] 10.4 fL Normal 6.2-12.0 [facility] Comment on above: Performed By: #### L 500.4100, L501.9985, L501.9520, L506.1001, L500.4050, L100.0100, L503.0106 ####[facility] [id number] [place], [address] Platelets (Bld) [#/Vol] 282 10*3/uL Normal 150-450 [facility] Comment on above: Performed By: #### L 500.4100, L501.9985, L501.9520, L506.1001, L500.4050, L100.0100, L503.0106 ####[facility] [id number] [place], [place], [address] RBC (Bld) [#/Vol] 3.97 10*6/uL Low 4.2-5.4 [facility] Comment on above: Performed By: #### L 500.4100, L501.9985, L501.9520, L506.1001, L500.4050, L100.0100, L503.0106 ####[facility] [address] [place], [place], [phone] RDW SD 43.9 fl Normal 35.1-43.9 [facility] Comment on above: Performed By: #### L 500.4100, L501.9985, L501.9520, L506.1001, L500.4050, L100.0100, L503.0106 ####[facility] [address] [place], [address] WBC (Bld) [#/Vol] 6.9 10*3/uL Normal 4.4-11.0 [facility] Comment on above: Performed By: #### L 500.4100, L501.9985, L501.9520, L506.1001, L500.4050, L100.0100, L503.0106 ####[facility] [address] [place], [place], [id number] Calculated very low density lipoprotein (VLDL) cholesterol measurementOrdered By: Ledy Beam on 07-02-2024 Calculated very low density lipoprotein (VLDL) cholesterol measurement 24 mg/dL 5-40 [facility] Carbon dioxide, total [Moles /volume] in Central venous bloodOrdered By: Aaronn Beam on 07-02-2024 CO2 [Moles/Vol] 24.2 mmol/L 21.0-32.0 [facility] Chloride assayOrdered By: Chai Foley on 07-02-2024 Chloride [Moles/Vol] 104 mmol/L 98-108 [facility] Comprehensive Metabolic Prof ilon 07-02-2024 Albumin [Mass/Vol] 4.3 g/dL Normal 3.5-5.0 [facility] Comment on above: Performed By: #### L 500.4100, L501.9985, L501.9520, L506.1001, L500.4050, L100.0100, L503.0106 ####[facility] [address] [place], [address] Albumin/Globulin [Mass ratio] 1.6 {ratio} Normal 0.9-2.4 [facility] Comment on above: Performed By: #### L 500.4100, L501.9985, L501.9520, L506.1001, L500.4050, L100.0100, L503.0106 ####[facility] [address] [place], [address] ALK PHOS 46 U/L Normal 35-104 [facility] Comment on above: Performed By: #### L 500.4100, L501.9985, L501.9520, L506.1001, L500.4050, L100.0100, L503.0106 ####[facility] [address] [place], [address] ALT [Catalytic activity/Vol] 56 U/L High <=34 [facility] Comment on above: Performed By: #### L 500.4100, L501.9985, L501.9520, L506.1001, L500.4050, L100.0100, L503.0106 ####[facility] [address] [place], [address] AST [Catalytic activity/Vol] 37 U/L High <=31 [facility] Comment on above: Result Comment: Hemo lysis present, Results??could be affected. ?? Performed By: #### L 500.4100, L501.9985, L501.9520, L506.1001, L500.4050, L100.0100, L503.0106 ####[facility] [address] [place], [address] Bilirubin [Mass/Vol] 0.43 mg/dL Normal 0.00-1.30 [facility] Comment on above: Performed By: #### L 500.4100, L501.9985, L501.9520, L506.1001, L500.4050, L100.0100, L503.0106 ####[facility] [address] [place], [address] BUN/CRE 14.2 RATIO Normal 10-20 [facility] Comment on above: Performed By: #### L 500.4100, L501.9985, L501.9520, L506.1001, L500.4050, L100.0100, L503.0106 ####[facility] [address] [place], [address] Calcium [Mass/Vol] 9.6 mg/dL Normal 7.6-11.0 [facility] Comment on above: Performed By: #### L 500.4100, L501.9985, L501.9520, L506.1001, L500.4050, L100.0100, L503.0106 ####[facility] [address] [place], [address] Chloride [Moles/Vol] 104 mmol/L Normal 98-108 [facility] Comment on above: Performed By: #### L 500.4100, L501.9985, L501.9520, L506.1001, L500.4050, L100.0100, L503.0106 ####[facility] [address] [place], [address] CO2 [Moles/Vol] 24.2 mmol/L Normal 21.0-32.0 [facility] Comment on above: Performed By: #### L 500.4100, L501.9985, L501.9520, L506.1001, L500.4050, L100.0100, L503.0106 ####[facility] [address] [place], [place], [phone] Creatinine [Mass/Vol] 0.96 mg/dL Normal 0.70-1.20 [facility] Comment on above: Performed By: #### L 500.4100, L501.9985, L501.9520, L506.1001, L500.4050, L100.0100, L503.0106 ####[facility] [address] [place], [place], [phone]) GAP 10 Normal 5-15 [facility] Comment on above: Performed By: #### L 500.4100, L501.9985, L501.9520, L506.1001, L500.4050, L100.0100, L503.0106 ####[facility] [address] [place], [address](606) GFR/1.73 sq M.predicted among non-blacks MDRD (S/P/Bld) [Vol rate/Area] 77 mL/min/{1.73_m2} Normal >60 [facility] Comment on above: Result Comment: mL/m in/1.73m2 CKD-EPI Creatinine Equation (2020) Performed By: #### L 500.4100, L501.9985, L501.9520, L506.1001, L500.4050, L100.0100, L503.0106 ####[facility] [address] [place], [place], [phone]) Globulin (S) [Mass/Vol] 2.7 g/dL Normal 2.2-4.2 [facility] Comment on above: Performed By: #### L 500.4100, L501.9985, L501.9520, L506.1001, L500.4050, L100.0100, L503.0106 ####[facility] [address] [place], [address] Glucose [Mass/Vol] 87 mg/dL Normal 70-99 [facility] Comment on above: Performed By: #### L 500.4100, L501.9985, L501.9520, L506.1001, L500.4050, L100.0100, L503.0106 ####[facility] [address] [place], [address] Potassium [Moles/Vol] 4.3 mmol/L Normal 3.3-5.1 [facility] Comment on above: Result Comment: Hemo lysis present, Results??could be affected. ?? Performed By: #### L 500.4100, L501.9985, L501.9520, L506.1001, L500.4050, L100.0100, L503.0106 ####[facility] [address] [place], [address] Sodium [Moles/Vol] 138 mmol/L Normal 133-145 [facility] Comment on above: Performed By: #### L 500.4100, L501.9985, L501.9520, L506.1001, L500.4050, L100.0100, L503.0106 ####[facility] [address] [place], [address] T PROT 6.9 g/dL Normal 5.9-8.4 [facility] Comment on above: Performed By: #### L 500.4100, L501.9985, L501.9520, L506.1001, L500.4050, L100.0100, L503.0106 ####[facility] [address] [place], [address] Urea nitrogen [Mass/Vol] 14 mg/dL Normal 4-19 [facility] Comment on above: Performed By: #### L 500.4100, L501.9985, L501.9520, L506.1001, L500.4050, L100.0100, L503.0106 ####[facility] [address] [place], [address] Eosinophil percentageOrdered By: Shalalun Beam on 07-02-2024 Eosinophils/100 WBC (Bld) 2.2 % 0-5 [facility] Erythrocyte distribution wid th ratioOrdered By: [facility] on 07-02-2024 Erythrocyte distribution width (RBC) [Ratio] 13.2 % 11.6-14.6 [facility] Erythrocyte distribution wid th standard deviationOrdered By: [facility] Be[facility] on 07-02-2024 Erythrocyte distribution width (RBC) [Ratio] 43.9 fl 35.1-43.9 [facility] Glomerular filtration rate ( GFR) estimation/1.73 sq m using serum, plasma, or whole bOrdered By: [facility] on 07-02-2024 GFR/1.73 sq M.predicted among non-blacks MDRD (S/P/Bld) [Vol rate/Area] 77 mL/min/{1.73_m2} >60 [facility] Comment on above: mL/min/1.73m2 CKD-EP I Creatinine Equation (2020) Hematocrit Auto (Bld) [Volum e fraction]Ordered By: Shalarupinder Foley on 07-02-2024 Hematocrit (Bld) [Volume fraction] 36.0 % Low 37-47 [facility] Hemoglobin A1con 07-02-2024 HbA1c (Bld) [Mass fraction] 5.4 % Normal <=5.6 [facility] Comment on above: Result Comment: Norm al < 5.7 % Prediabetic 5.7 - 6.4 % Diabetic >or= 6.5 % Please note range changes. Performed By: #### L 500.4100, L501.9985, L501.9520, L506.1001, L500.4050, L100.0100, L503.0106 ####[facility] [address] [place], [place], [phone] Hemoglobin A1c percentageOrd ered By: Ledy Foley on 07-02-2024 HbA1c (Bld) [Mass fraction] 5.4 % <5.7 [facility] Comment on above: Normal < 5.7 % Predi abetic 5.7 - 6.4 % Diabetic >or= 6.5 % Please note range changes. Hemoglobin measurementOrdere d By: Ledy Foley on 07-02-2024 Hemoglobin (Bld) [Mass/Vol] 12.1 g/dL 12.0-15.0 [facility] Immature granulocytes/100 WB C Auto (Bld)Ordered By: rich Foley on 07-02-2024 Immature granulocytes/100 WBC (Bld) 0.300 % 0.0-0.9 [facility] Comment on above: IG% - Immature Granu locytes (promyelocytes, myelocytes and metamyelocytes) > 1% indicates that a LEFT SHIFT is Present. LDL calc ser/plasOrdered By: Ledy Foley on 07-02-2024 Cholesterol in LDL [Mass/Vol] 102 mg/dL [facility] Comment on above: Juursbhsvr=760-549 m g/dL & Higher Bgml=045 mg/dL or greater Laboratory - Chemistry and C hemistry - challengeOrdered By: Ledy Foley on 07-02-2024 AST [Catalytic activity/Vol] 37 U/L High <32 [facility] Comment on above: Hemolysis present, R esults could be affected. Lipid Profileon 07-02-2024 CHOL:HDL 3.16 Normal [facility] Comment on above: Performed By: #### L 500.4100, L501.9985, L501.9520, L506.1001, L500.4050, L100.0100, L503.0106 ####[facility] [address] [place], [place], [id number] Cholesterol [Mass/Vol] 184 mg/dL Normal <=200 [facility] Comment on above: Result Comment: Chol esterol level, Desirable <200 mg/dL Borderline high cholesterol 200-239 mg/dL High cholesterol >=240 mg/dL Recommendations of the NCEP Adult Treatment Panel for the following risk-cutoff thresholds for the [place] population. Performed By: #### L 500.4100, L501.9985, L501.9520, L506.1001, L500.4050, L100.0100, L503.0106 ####[facility] [address] [place], [address] Cholesterol in HDL [Mass/Vol] 58 mg/dL Normal [facility] Comment on above: Result Comment: [place] onal Cholesterol Education Program (NCEP) guidelines: <40 mg/dL: Low HDL-cholesterol (major risk factor for CHD) >= 60 mg/dL: High HDL-cholesterol (negative risk factor for CHD) HDL-cholesterol is affected by a number of factors, e.g. smoking, exercise, hormones, sex and age. Performed By: #### L 500.4100, L501.9985, L501.9520, L506.1001, L500.4050, L100.0100, L503.0106 ####[facility] [address] [place], [address] Cholesterol in LDL [Mass/Vol] 102 mg/dL Normal [facility] Comment on above: Result Comment: Bord ighnhe=989-354 mg/dL Higher Xrjh=570 mg/dL or greater Performed By: #### L 500.4100, L501.9985, L501.9520, L506.1001, L500.4050, L100.0100, L503.0106 ####[facility] [address] [place], [address] Cholesterol in VLDL [Mass/Vol] 24 mg/dL Normal 5-40 [facility] Comment on above: Performed By: #### L 500.4100, L501.9985, L501.9520, L506.1001, L500.4050, L100.0100, L503.0106 ####[facility] [address] [place], [address] Triglyceride [Mass/Vol] 121 mg/dL Normal [facility] Comment on above: Result Comment: The drugs N-Acetylcysteine and Metamizole may falsely depress this assay. Normal range: <150 mg/dL Borderline High: 150-199 mg/dL High: 200-499 mg/dL Very High: >500 mg/dL Performed By: #### L 500.4100, L501.9985, L501.9520, L506.1001, L500.4050, L100.0100, L503.0106 ####[facility] [address] [place], [place], [address] MCV (mean corpuscular volume ) determinationOrdered By: Shalalun Beam on 07-02-2024 MCV (RBC) [Entitic vol] 90.7 fL 81-99 [facility] Mean corpuscular hemoglobin (MCH) determinationOrdered By: Zebulun Beam on 07-02-2024 MCH (RBC) [Entitic mass] 30.5 pg 27.0-32.0 [facility] Mean corpuscular hemoglobin concentration (MCHC) determinationOrdered By: Zebulun Beam on 07-02-2024 MCHC (RBC) [Mass/Vol] 33.6 g/dL 32-36 [facility] Mean platelet volume determi nationOrdered By: Zebulun Beam on 07-02-2024 Platelet mean volume (Bld) [Entitic vol] 10.4 fL 6.2-12.0 [facility] Monocyte percentageOrdered B y: Zebulun Beam on 07-02-2024 Monocytes/100 WBC (Bld) 7.8 % 0-10 [facility] Neutrophil percentageOrdered By: Zebulun Beam on 07-02-2024 Neutrophils/100 WBC (Bld) 62.0 % 47-70 [facility] Nucleated red blood cell per centageOrdered By: Zebulun Beam on 07-02-2024 Nucleated RBC/100 WBC (Bld) [Ratio] 0 % 0-5 [facility] Platelet countOrdered By: Chai fallun Og on 07-02-2024 Platelets (Bld) [#/Vol] 282 10*3/uL 150-450 [facility] Potassium measurement (mass/ volume)Ordered By: Ledy Foley on 07-02-2024 Potassium (Unsp spec) [Mass/Vol] 4.3 mmol/L 3.3-5.1 [facility] Comment on above: Hemolysis present, R esults could be affected. RBC Auto (Bld) [#/Vol]Ordere d By: Ledy Foley on 07-02-2024 RBC (Bld) [#/Vol] 3.97 10*6/uL Low 4.2-5.4 [facility] Screening total cholesterol/ high density lipoprotein (HDL) cholesterol ratioOrdered By: Ledy Foley on 07-02-2024 Cholesterol.total/Jennifer sterol in HDL [Mass ratio] 3.16 {ratio} [facility] Serum creatinine measurement (mass/volume)Ordered By: Ledy Foley on 07-02-2024 Creatinine [Mass/Vol] 0.96 mg/dL 0.70-1.20 [facility] Serum globulin measurementOr dered By: Ledy Foley on 07-02-2024 Globulin (S) [Mass/Vol] 2.7 g/dL 2.2-4.2 [facility] Serum glucose measurement (m ass/volume)Ordered By: Ledy Foley on 07-02-2024 Glucose [Mass/Vol] 87 mg/dL 70-99 [facility] Serum or plasma alanine zimmer otransferase (ALT) measurementOrdered By: Ledy Foley on 07-02-2024 ALT [Catalytic activity/Vol] 56 U/L High <35 [facility] Serum or plasma albumin milton urement (mass/volume)Ordered By: Shalarupinder Foley on 07-02-2024 Albumin [Mass/Vol] 4.3 g/dL 3.5-5.0 [facility] Serum or plasma albumin/glob ulin mass ratioOrdered By: cmrupinder Foley on 07-02-2024 Albumin/Globulin [Mass ratio] 1.6 {ratio} 0.9-2.4 [facility] Serum or plasma alkaline musa sphatase measurementOrdered By: Ledy Foley on 05-16-2025 ALP [Catalytic activity/Vol] 46 U/L 35-104 [facility] Serum or plasma calcium milton urement (mass/volume)Ordered By: Ledy Foley on 07-02-2024 Calcium [Mass/Vol] 9.6 mg/dL 7.6-11.0 [facility] Serum or plasma cholesterol in HDL measurement (mass/volume)Ordered By: Ledy Foley on 07-02-2024 Cholesterol in HDL [Mass/Vol] 58 mg/dL >40 [facility] Comment on above: National Cholesterol Education Program (NCEP) guidelines:<40 mg/dL: Low HDL-cholesterol (major risk factor for CHD)>= 60 mg/dL: High HDL-cholesterol (negative risk factor for CHD)HDL-cholesterol is affected by a number of factors, e.g. smoking, exercise, hormones, sex and age. Serum or plasma cholesterol measurement (mass/volume)Ordered By: Ledy Foley on 07-02-2024 Cholesterol [Mass/Vol] 184 mg/dL <201 [facility] Comment on above: Cholesterol level, D esirable <200 mg/dLBorderline high cholesterol 200-239 mg/dLHigh cholesterol >=240 mg/dLRecommendations of the NCEP Adult Treatment Panel for the following risk-cutoff thresholds for the [place] population. Serum or plasma urea nitroge n measurement (mass/volume)Ordered By: Ledy Foley on 07-02-2024 Urea nitrogen [Mass/Vol] 14 mg/dL 4-19 [facility] Sodium levelOrdered By: Shala Foley on 07-02-2024 Sodium [Moles/Vol] 138 mmol/L 133-145 [facility] TSH DL <= 0.005 mIU/L QnOrde red By: Ledy Foley on 07-02-2024 TSH Qn 1.640 uIU/mL 0.300-4.20 0 [facility] Thyroid Stim Hormone (TSH)on 07-02-2024 TSH 1.640 uIU/mL Normal 0.300-4.20 0 [facility] Comment on above: Performed By: #### L 500.4100, L501.9985, L501.9520, L506.1001, L500.4050, L100.0100, L503.0106 ####[facility] [address] [place], [place], [id number] Total proteinOrdered By: Art Foley on 07-02-2024 Protein [Mass/Vol] 6.9 g/dL 5.9-8.4 [facility] Triglycerides measurementOrd ered By: Ledy Foley on 07-02-2024 Triglyceride [Mass/Vol] 121 mg/dL <199 [facility] Comment on above: The drugs N-Acetylcy steine and Metamizole may falsely depress this assay. Normal range: <150 mg/dLBorderline High: 150-199 mg/dLHigh: 200-499 mg/dLVery High: >500 mg/dL Vitamin B12on 07-02-2024 Cobalamin (Vitamin B12) [Mass/Vol] 794 pg/mL Normal 180-914 [facility] Comment on above: Performed By: #### L 500.4100, L501.9985, L501.9520, L506.1001, L500.4050, L100.0100, L503.0106 ####[facility] [address] [place], [place], [id number] Vitamin B12 ser/plasOrdered By: Ledy Foley on 07-02-2024 Cobalamin (Vitamin B12) [Mass/Vol] 794 pg/mL 180-914 [facility] Vitamin D,25 Hydroxyon 07-02 Vitamin D 25-OH 36.6 ng/mL Normal 30-100 [facility] Comment on above: Result Comment: Iza min D Status Deficiency: <20 ng/mL (50nmol/L) Insufficiency: 20-30 ng/mL (50-75 nmol/L) Sufficiency: 30-100 ng/mL (75-250 nmol/L) Toxicity: >100 ng/mL (>250 nmol/L) Performed By: #### L 500.4100, L501.9985, L501.9520, L506.1001, L500.4050, L100.0100, L503.0106 ####[facility] [address] [place], [place], [address] White blood cell (WBC) count Ordered By: Ledy Foley on 07-02-2024 WBC (Bld) [#/Vol] 6.9 10*3/uL 4.4-11.0 [facility] Lower Ext Joint Only (Routin e)on 06-18-2024 Lower Ext Joint Only (Routine) [facility] Imaging Services [address] [place] [address] Lower Ext Joint Only (Routine) MR#: [id number] Acct: [id number] Name: ANA MARIA JOSEPH ANN Rep #: [id number] : 1985 F 38 From: Aleks Mendenhall DO PCP: HANG Jameson Status: REG CLI Study: Lower Ext Joint Only (Routine) Date of Exam: 0 06/18/24 Exam# [id number] Ordering Dr: Carlos Martins MD EXAM: MRI left hip without contrast CLINICAL HISTORY: Left leg burning and numbness. Pain. COMPARISON: None. TECHNIQUE: Unenhanced MRI left hip was performed. Large xrcsc-yy-sgtx coronal T1 and STIR images of the entire pelvis also obtained. FINDINGS: Marrow edema is noted surrounding the pubic symphysis. There is wydcm-qifdidd-xxwl-left irregularity of the pubic tubercles, consistent with [...] change of the pubic symphysis Reading Location: [facility] CC: PRECAST WORKERChrissy Batista; Dr. Carlos Martins MD Manager Book: Signed Normal [facility] Magnetic resonance imaging r eportOrdered By: Aleks Mendenhall on 06-18-2024 Study report [facility] Imaging Services [address] [place], [place] [address] Lower Ext Joint Only (Routine) MR#: [id number] Acct: [id number] Name: ANA MARIA JOSEPH ANN Rep #: [id number] : 1985 F 38 From: Aleks Mendenhall DO PCP: HANG Jameson Status: REG CLI Study:Lower Ext Joint Only (Routine) Date of Exam: 06/18/24 Exam# [id number] Ordering Dr: Carlos Martins MD EXAM: MRI left hip without contrast CLINICAL HISTORY: Left leg burning and numbness. Pain. COMPARISON: None. TECHNIQUE: Unenhanced MRI left hip was performed. Large izuug-ju-rylb coronal T1 and STIR images of the entire pelvis also obtained. FINDINGS: Marrow edema is noted surrounding the pubic symphysis. There is rdryv-fkmzyhp-cqxb-left irregularity of the pubic tubercles, consistent with [...] change of the pubic symphysis Reading Location: [facility] CC: HANG Batista; Dr. Carlos Martins MD ~ Manager Book: Signed [facility] After School Tutor Office Visit Reporton 06-14-2024 After School Tutor Office Visit Report [facility] [address], [address] [place] [address] OFFICE VISIT Date of Service: 06/14/24 MR#: [id number] Acct: [id number] Name: ANA MARIA JOSEPH ANN Rep #: [id number] : 1985 Provider: Dr. Ana Maria Gaytan DO Age/Sex: 38/F Location: [facility] [place] [place] Status: Signed with Addenda ADDENDUM by Dr. Ana Maria Walker DO on 06/14/24 at 1352 Assessment and Plan Plan Details Goals Barriers: Goals Decrease pain Decrease spasm Improve workability Addendum error above. uterus is surgically absent. 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 Normal [facility] NCS and/or EMG Patienton NCS and/or EMG Patient [facility] Pulmonary Services/Neurology [address] [place] [address] MR#: [id number] Acct: [id number] Name: ANA MARIA JOSEPH Rep #: [id number] : 1985 38 From: Ramona Martin MD Referring Dr: Ashkan Tolentino MD Status: REG CLI Location: PSN Date: 06/08/24 Sex: F C NCS and/or EMG Patient Report Ordering Doctor: Ashkan Tolentino DATE OF SERVICE: 06/08/24 Clinical Summary: 38 [...] Multi Select Codes Neurology Neurology Interp Codes: 50317-47 Musc test done w/n test comp (interp) (1) and 26592-87 Nrv cndj tst 5-6 studies (interp) 06/08/24 1127 Date Ramona Martin MD CC: PRECAST WORKER-C Angus Batista; Dr. Ramona Martin MD; Dr. Ashkan Tolentino MD Date Dictated: 06/08/24949 Date Transcribed: 06/08/24949 Manager Book: Signed Normal [facility] HIP, UNI W/ Pelvis 2-3 Views on 05-11-2024 HIP, UNI W/ Pelvis 2-3 Views [facility] Imaging Services [address] [place], [place] [address] HIP, UNI W/ Pelvis 2-3 Views MR#: [id number] Acct: [id number] Name: ANA MARIA JOSEPH ANN Rep #: [id number] : 1985 F 38 From: Leo Mccoy MD PCP: HANG Jameson Status: REG CLI Study: HIP, UNI W/ Pelvis 2-3 Views Date of Exam: Exam# [id number] Ordering Dr: Ashkan Tolentino MD PROCEDURE: HIP, UNI W/ PELVIS 2-3 [...] pubis may be degenerative, nonspecific. Reading Location: [facility] CC: PRECAST WORKER-C Angus Batista; Dr. Ashkan Tolentino MD Manager Book: Signed Normal [facility] Lumbar Spine 2 or 3 Viewson 05-11-2024 Lumbar Spine 2 or 3 Views [facility] Imaging Services [address] [place], [place] [id number] Lumbar Spine 2 or 3 Views MR#: [id number] Acct: [id number] Name: ANA MARIA JOSEPH ANN Rep #: [id number] : 1985 F 38 From: Fern Cowan PCP: HANG Jameson Status: REG CLI Study: Lumbar Spine 2 or 3 Views Date of Exam: Exam# [id number] Ordering Dr: Ashkan Tolentino MD EXAM: Two views lumbosacral spine. CLINICAL [...] By: Fern langford 05/11/2024 19:26 Reading Location: [facility] CC: PRECAST WORKER-C Angus Batista; Dr. Ashkan Tolentino MD Manager Book: Signed Normal [facility] Orthopedic Visit Reporton Orthopedic Visit Report [facility] [address] [place] [address] OFFICE VISIT Date of Service: 05/11/24 MR#: [id number] Acct: [id number] Name: ANA MARIA JOSEPH ANN Rep #: [id number] : 1985 Provider: Dr. Ashkan langford MD Age/Sex: 38/F Location: [facility] [place] Status: Signed Intake Vital Signs 04/09/24 09:43 [...] History (Updated 05/11/24 @ 13:48 by Ashkan Tolentino MD) Left hip pain Cardiology follow-up encounter [...] 3 current occupational status: employed current occupation: [employer] history of recent travel: No sexually active: [...] the decisions made by me, Dr. Ashkan Tolentino MD 05/11/24 5831. Part of today???s visit was documented by [ ], acting as scribe. ANA MARIA JOSEPH is a 38 year old F here today for L thigh numbness. Was in ED a month ago - DVT US negative (more content not included)... Normal [facility] PT D/C Summary (1)on 025 PT D/C Summary (1) [facility] [address] [place] [address] / REHABILITATION SERVICES DISCHARGE SUMMARY MR#: [id number] Acct: [id number] Name: ANA MARIA JOSEPH Rep #: [id number] : 1985 38 From: Paula PURI Referring DrChacho: Ledy Foley Status: RE G RCR Insurance: [employer]URANCE Discharge Summary D/C summary: [...] please feel free to call me at [phone]. Thank you for the referral of this patient. Sincerely, KHUSHI Dewey Balance/Gait/Functional tests Balance/Special Test Scores Lower Extremity Functional Score: 67 Improvement % Improvement: 0 05/11/24 1203 CC: HANG Villafana [facility] PRECAST WORKER-[employer] Signed Normal [facility] Breast Limited Unilateralon 04-30-2024 Breast Limited Unilateral [facility] Imaging Services [address] [place] [address] Breast Limited Unilateral MR#: [id number] Acct: [id number] Name: ANA MARIA JOSEPH ANN Rep #: [id number] : 1985 F 38 From: Paramjit carmichael MD PCP: HANG Jameson Status: REG CLI Study: Breast Limited Unilateral Date of Exam: Exam# [id number] Ordering Dr: Alem Gross CNM PROCEDURE: BREAST [...] NEGATIVE. RECOMMEND ANNUAL MAMMOGRAPHIC SCREENING. Reading Location: [place] [address] CC: DARIN Gross; HANG Batista Manager Book: Signed Normal [facility] Breast imaging reportOrdered By: Paramjit Kumari on 04-30-2024 Study report [facility] Imaging Services [address] [place], [place] [address] DIAG MAMM W/CAD, BILAT MR#: [id number] Acct: [id number] Name: ANA MARIA JOSEPH ANN Rep #: [id number] : 1985 F 38 From: Valeriano Kumari MD PCP: HANG Jameson Status: REG CLI Study:DIAG MAMM W/CAD, BILAT Date of Exam: 04/30/24 Exam# [id number] Ordering Dr: Alem Gross CNM PROCEDURE: DIAG [...] EVALUATION. Follow-up code: Ultrasound Recommended Reading Location: [facility] CC: DARIN Gross; PRECAST WORKERRaquelC Angus Batista ~ Manager Book: Signed [facility] DIAG MAMM W/CAD, BILATon DIAG MAMM W/CAD, BILAT [facility] Imaging Services [address] [place], [place] [id number] DIAG MAMM W/CAD, BILAT MR#: [id number] Acct: [id number] Name: ANA MARIA JOSEPH ANN Rep #: [id number] : 1985 F 38 From: Paramjit carmichael MD PCP: HANG Jameson Status: [facility] CLI Study: DIAG MAMM W/CAD, BILAT Date of Exam: 04/30/24 Exam# [id number] Ordering Dr: Alem Gross CNM PROCEDURE: DIAG [...] EVALUATION. Follow-up code: Ultrasound Recommended Reading Location: [facility] CC: DARIN Gross; HANG Batista Manager Book: Signed Normal [facility] Inital Evaluation (1) - PTon 04-09-2024 Inital Evaluation (1) - PT [facility] Physical Therapy [facility] [address] [place] [address] [address] [place] [address] / REHABILITATION SERVICES INITIAL EVALUATION MR#: [id number] Acct: [id number] Name: ANA MARIA JOSEPH Rep #: [id number] : 1985 38 From: Paula PURI Referring DrChacho: Ledy Foley Status: RE G RCR Insurance: [facility] [employer]/[facility] S[employer] INSURANCE Patient's Visit Information Visit Information Visit Information: ANA MARIAALEJO JOSEPH is a 38 year old F referred to Physical Therapy by GEOVANNI Johnson, PRECAST WORKER-C with a diagnosis of meralgia paresthetica L [...] to be FAXED BACK to us at [phone] for Medicare purposes. For Medicare only, by signing this I certify the plan of care. Please let me know if there are questions or concerns regarding this plan of care. Physician Signature: Date: (more content not included)... Normal [facility] After School Tutor Office Visit Reporton 04-09-2024 After School Tutor Office Visit Report [facility] [address], [address] [place] [address] OFFICE VISIT Date of Service: 04/09/24 MR#: [id number] Acct: [id number] Name: ANA MARIA JOSEPH Rep #: [id number] : 1985 Provider: DARIN [place] ams Age/Sex: 38/F Location: [facility] [place] Status: Signed Intake Vital Signs 11/26/23 12:04 03/29/24 19:00 04/09/24 09:38 04/09/24 09:43 Height 5 ft 5 in 5 ft 5 in 5 ft 5 in 5 ft 5 in Weight: 257 lb BMI 42.7 BP 133/85 H Intake Visit Reasons: Lumps in breasts Rod Welder Required: No Is patient in pain?: No [...] 3 current occupational status: employed current occupation: [employer] history of recent travel: No sexually active: Yes Smoking Status: Former smoker alcohol intake: never substance use type: does not use caffeine: No what type of physical activity do you participate in: running frequency: 3-4 times per week seatbelt use: always do you feel safe at home: Yes additional social history: - [place] Lumps in breasts Details: AAN MARIA JOSEPH is a 38 year old who presents for lump in right breast. Onset a couple of months ago- noticed an increase size and in pain with right breast. Some pain noted in the left but less than on the right side. denies discharge from nipples or changes in skin color/dimpling. hx (more content not included)... Normal [facility] Emergency Department Summary on 03-29-2024 Emergency Department Summary [facility] Medical Records Department [address] [place] [address] Emergency Department Summary 03/29/24 MR#: [id number] Acct: [id number] Name: ANA MARIA JOSEPH ANN Rep #: [id number] : 1985 38 From: Richi Saucedo DO [...] injury to her leg. Denies back pain. [facility] Medical History Cardiology follow-up encounter Acute conjunctivitis, [...] 3 current occupational status: employed current occupation: [employer] history of recent travel: No sexually active: Yes Smoking Status: Former smoker alcohol intake: never substance use type: does not use caffeine: No what type of physical activity do you participate in: running frequency: 3-4 times per week seatbelt use: always do you feel safe at home: (more content not included)... Normal [facility] Venous Duplex Imag/Limited/U nion 03-29-2024 Venous Duplex Imag/Limited/Uni [facility] Imaging Services [address] [place] [address] Venous Duplex Imag/Limited/Uni MR#: [id number] Acct: [id number] Name: ANA MARIA JOSEPH ANN Rep #: [id number] : 1985 F 38 [facility] PCP: HANG Jameson Status: PRE ER Study: Venous Duplex Imag/Limited/Uni Date of Exam: 0 03/29/24 Exam# [id number] Ordering Dr: Provider,Ed P. PROCEDURE: VENOUS DUPLEX [...] BRONSON CC: HANG Batista; ED PHYSICIAN PROVIDER Manager Book: Signed Normal [facility] Orthopedic Visit Reporton Orthopedic Visit Report [facility] [address] [place] [address] [address] [place] [address] OFFICE VISIT Date of Service: 02/10/24 MR#: [id number] Acct: [id number] Name: ANA MARIA JOSEPH ANN Rep #: [id number] : 1985 Provider: Dr. Ashkan langford MD Age/Sex: 38/F Location[place] [facility] [place] Status: Signed Intake Vital Signs 11/26/23 12:04 [...] 3 current occupational status: employed current occupation: [employer] history of recent travel: No sexually active: [...] the decisions made by me, Dr. Ashkan Tolentino MD 02/10/24 1106. Part of today???s visit [...] a s (more content not included)... Normal [facility] Orthopedic Visit Reporton Orthopedic Visit Report [facility] [address] [place] [address] OFFICE VISIT Date of Service: 12/30/23 MR#: [id number] Acct: [id number] Name: ANA MARIA JOSEPH ANN Rep #: [id number] : 1985 Provider: Dr. Ashkan langford MD Age/Sex: 38/F Location: [facility] [place] Status: Signed Intake Vital Signs 11/26/23 12:04 [...] 3 current occupational status: employed current occupation: [employer] history of recent travel: No sexually active: [...] the decisions made by me, Dr. Ashkan Tolentino MD 12/30/23 0911. Part of today???s visit was documented by [ ], acting as scribe. ANA MARIA JOSEPH is a 38 year old F here today for approximately 5 weeks follow-up left open carpal tunnel release. Patient is doing well they had a small suture abscess yesterday, that cleared up little (more content not included)... Normal [facility] US WRIST LTon 11-06-2023 US WRIST LT * * *Final Report* * * DATE OF EXAM: Nov 06 2023 10:29AM SHEY 1135 - US WRIST LT / PROCEDURE [...] tunnel and findings consistent with mild neuritis. Manager Book: TAINA Transcribe Date/Time: Nov 06 2023 11:11A Dictated by : BECKY PEARSON MD This examination was interpreted and the report reviewed and electronically signed by: BECKY PEARSON MD on Nov 06 2023 11:15AM EST [id number] Normal [facility] CNPNon 09-10-2023 CNPN Telephone (RULTTB) ANA MARIA JOSEPH ([id number]) 1985 F Date Time Provider Department 09/10/23 [facility] During your visit today, we recorded the following information about you: Osbaldo Ch PCNA 09/11/2023 10:12 AM Addendum Visit Type: US MSK1 Visit Length: 45 OR 60 MINUTES Order Name/Protocol: PLEASE HAVE PT SIGN AUTH OF RELEASE FORM. US WRIST LT; VOLAR+CARPAL TUNNEL-EVAL FOR CTS+SFT LUMP, S/P SURGERY. OUTSIDE ORDER SCANNED INTO CHART/BUILT IN [employer] Preferred Provider: N/A Comment: Please ask if [...] exam on 10/08/23 : 3:00 PM at [facility]. Allergies As of Date: 09/10/2023 Noted Allergy Reaction CECLOR (CEFACLOR) 12/21/2004 2 - Rash DOXYCYCLINE 11/10/2014 2 - Rash 6 - Diarrhea PENICILLINS 12/21/2004 4 - Hives SEASONAL ALLERGIES 06/08/2009 Date Reviewed: 07/08/2018 Reviewed by: Marilyn Cardoso ([facility])SUDHA - Fully Assessed Reason for Visit: Appointment [...] Status:Closed by CHRISSIE PAYNE on 09/15/23 Normal [facility] Absolute lymphocyte countOrd ered By: Ashkan Tolentino on 06-19-2023 Lymphocytes Auto (Unsp spec) [#/Vol] 2.17 10*3/uL 0.83-4.51 [facility] Automated lymphocyte count a s percentage of total leukocytesOrdered By: Ashkan Tolentino on 06-19-2023 Lymphocytes/100 WBC Auto (Unsp spec) 29.7 % 19-41 [facility] Basophil percentageOrdered B y: Ashkan Tolentino on 06-19-2023 Basophils/100 WBC (Bld) 0.5 % 0-1 [facility] Eosinophils/100 WBC (Bld) 1.8 % 0-5 [facility] Hemoglobin (Bld) [Mass/Vol] 12.2 g/dL 12.0-15.0 [facility] Monocytes/100 WBC (Bld) 6.2 % 0-10 [facility] Neutrophils (Bld) [#/Vol] 4.5 10*3/uL 2.0-7.7 [facility] Neutrophils/100 WBC (Bld) 61.7 % 47-70 [facility] WBC (Bld) [#/Vol] 7.3 10*3/uL 4.4-11.0 [facility] Determination of erythrocyte mean corpuscular volume (MCV)Ordered By: Ashkan Tolentino on 06-19-2023 MCV (RBC) [Entitic vol] 88.5 fL 81-99 [facility] Erythrocyte distribution wid th ratioOrdered By: Ashkan Tolentino on 06-19-2023 Erythrocyte distribution width (RBC) [Ratio] 12.7 % 11.6-14.6 [facility] Erythrocyte distribution wid th standard deviationOrdered By: Ashkan Tolentino on 06-19-2023 Erythrocyte distribution width (RBC) [Entitic vol] 40.9 fL 35.1-43.9 [facility] Hematocrit Auto (Bld) [Volum e fraction]Ordered By: Ashkan Tolentino on 06-19-2023 Hematocrit (Bld) [Volume fraction] 36.2 % 37-47 [facility] Immature granulocytes/100 WB C Auto (Bld)Ordered By: Ashkan Tolentino on 06-19-2023 Immature granulocytes/100 WBC (Bld) 0.100 % 0.0-0.9 [facility] Comment on above: IG% - Immature Granu locytes (promyelocytes, myelocytes and metamyelocytes) > 1% indicates that a LEFT SHIFT is Present. Laboratory - Hematology and Cell countsOrdered By: Ashkan Tolentino on 06-19-2023 MCH (RBC) [Entitic mass] 29.8 pg 27.0-32.0 [facility] MCHC (RBC) [Mass/Vol] 33.7 g/dL 32-36 [facility] Nucleated RBC/100 WBC (Bld) [Ratio] 0 % 0-5 [facility] Platelet mean volume (Bld) [Entitic vol] 10.3 fL 6.2-12.0 [facility] Platelets (Bld) [#/Vol] 301 10*3/uL 150-450 [facility] No Panel InformationOrdered By: Ashkan Tolentino on 06-19-2023 C-Reactive Protein Extended Range < 2.90 mg/L 0.0-3.0 [facility] Comment on above: C-Reactive Protein ( CRP) provides useful information for thediagnosis, therapy and monitoring of inflammatory processesand associated diseases. For the evaluation of Relative Riskfor Cardiovascular Disease, a High Sensitivity CRP (HSCRP)should be ordered. RBC Auto (Bld) [#/Vol]Ordere d By: Ashkan Tolentino on 06-19-2023 RBC (Bld) [#/Vol] 4.09 10*6/uL 4.2-5.4 [facility] Laboratory - Chemistry and C hemistry - challengeOrdered By: Vince Odom on 06-11-2023 HCG ( test) Ql (U) Negative [facility] Comment on above: Very dilute urine sp ecimens, as indicated by a low specificgravity, may not contain retail wireless sales representative levels of hCG. If is still suspected, a first morning urinespecimen should be collected 48 hours later and tested. Absolute lymphocyte countOrd ered By: Francesca Arthur on 02-25-2023 Lymphocytes Auto (Unsp spec) [#/Vol] 1.94 10*3/uL 0.83-4.51 [facility] Basophil percentageOrdered B y: Francesca Arthur on 02-25-2023 Basophils/100 WBC (Bld) 0.7 % 0-1 [facility] Eosinophils/100 WBC (Bld) 1.9 % 0-5 [facility] Neutrophils (Bld) [#/Vol] 4.2 10*3/uL 2.0-7.7 [facility] Neutrophils/100 WBC (Bld) 61.5 % 47-70 [facility] WBC (Bld) [#/Vol] 6.8 10*3/uL 4.4-11.0 [facility] Blood erythrocytes count (nu mber/volume)Ordered By: Francesca Arthur on 02-25-2023 RBC (Bld) [#/Vol] 3.81 10*6/uL 4.2-5.4 [facility] Blood hemoglobin measurement (mass/volume)Ordered By: Francesca Arthur on 02-25-2023 Hemoglobin (Bld) [Mass/Vol] 11.6 g/dL 12.0-15.0 [facility] Blood lymphocytes/100 leukoc ytesOrdered By: Francesca Arthur on 02-25-2023 Lymphocytes/100 WBC (Bld) 28.4 % 19-41 [facility] Blood monocytes/100 leukocyt esOrdered By: Francesca Arthur on 02-25-2023 Monocytes/100 WBC (Bld) 7.2 % 0-10 [facility] Blood platelet mean volumeOr dered By: Francesca Arthur on 02-25-2023 Platelet mean volume (Bld) [Entitic vol] 9.8 fL 6.2-12.0 [facility] Determination of erythrocyte mean corpuscular volume (MCV)Ordered By: Francesca Arthur on 02-25-2023 MCV (RBC) [Entitic vol] 91.3 fL 81-99 [facility] Hematocrit Auto (Bld) [Volum e fraction]Ordered By: Francesca Arthur on 02-25-2023 Hematocrit (Bld) [Volume fraction] 34.8 % 37-47 [facility] Laboratory - Hematology and Cell countsOrdered By: Francesca Arthur on 02-25-2023 Erythrocyte distribution width (RBC) [Entitic vol] 44.3 fL 35.1-43.9 [facility] Erythrocyte distribution width (RBC) [Ratio] 13.2 % 11.6-14.6 [facility] Immature granulocytes/100 WBC (Bld) 0.300 % 0.0-0.9 [facility] Comment on above: IG% - Immature Granu locytes (promyelocytes, myelocytes and metamyelocytes) > 1% indicates that a LEFT SHIFT is Present. MCH (RBC) [Entitic mass] 30.4 pg 27.0-32.0 [facility] Nucleated RBC/100 WBC (Bld) [Ratio] 0 % 0-5 [facility] MCHC Auto (RBC) [Mass/Vol]Or dered By: Francesca Arthur on 02-25-2023 MCHC (RBC) [Mass/Vol] 33.3 g/dL 32-36 [facility] Platelets bldOrdered By: Rosy Arthur on 02-25-2023 Platelets (Bld) [#/Vol] 289 10*3/uL 150-450 [facility] Serum or plasma prolactin me asurement (mass/volume)Ordered By: Francesca Arthur on 02-25-2023 Prolactin [Mass/Vol] 19.7 ng/mL [facility] Comment on above: NORMAL REFERENCE RAN GES FEMALE NON- 2.2 - 30.3 ng/mL 8.1 - 347.6 ng/mL POST-MENOPAUSAL 0.7 - 31.5 ng/mL MALE 2.5 - 17.4 ng/mL Erythrocyte sedimentation ra teOrdered By: Angus Batista on 02-18-2023 ESR (Bld) [Velocity] 7 mm/h 0-30 [facility] Iron measurement (mass/mass) Ordered By: Angus Batista on 02-18-2023 Iron (Unsp spec) [Mass/Mass] 155 ug/dL 50-170 [facility] Laboratory - Chemistry and C hemistry - challengeOrdered By: Angus Batista on 02-18-2023 Cobalamin (Vitamin B12) [Mass/Vol] 667 pg/mL 211-911 [facility] No Panel InformationOrdered By: Angus Batista on 02-18-2023 Anti-Nuclear Antibody Screen Negative Negative [facility] Comment on above: Performed at: [facility] [address] [id number] Director: Flex Chavez PhD, Phone: [phone] Total Iron Binding Capacity 379 ug/dL 250-450 [facility] Vitamin D 25-Hydroxy 42.8 ng/mL [facility] Comment on above: Vitamin D 25(OH) Sta tus Range Deficiency <20 ng/mL (50nmol/L) Insufficiency 20 - 30 ng/mL (50 - 75 nmol/L) Sufficiency 30 - 100 ng/mL (75 - 250 nmol/L) Toxicity >100 ng/mL (>250 nmol/L) Serum cyclic citrullinated p eptide IgG antibody assay (units/volume)Ordered By: Angus Batista on 02-18-2023 Cyclic citrullinated peptide IgG Qn 6 units 0-19 [facility] Comment on above: Negative <20 Weak po sitive 20 - 39 Moderate positive 40 - 59 Strong positive >59Performed at: [facility] [address] [id number] Director: Flex Chavez PhD, Phone: [phone] Serum or plasma C reactive p rotein measurement (mass/volume)Ordered By: Angus Batista on 02-18-2023 CRP [Mass/Vol] mg/L 0.0-3.0 [facility] Comment on above: C-Reactive Protein ( CRP) provides useful information for thediagnosis, therapy and monitoring of inflammatory processesand associated diseases. For the evaluation of Relative Riskfor Cardiovascular Disease, a High Sensitivity CRP (HSCRP)should be ordered. Serum or plasma iron saturat ion measurement (mass fraction)Ordered By: Angus Batista on 02-18-2023 Iron saturation [Mass fraction] 40.9 % 15.0-55.0 [facility] Serum rheumatoid factor dete ctionOrdered By: Angus Batista on 02-18-2023 Rheumatoid factor Ql (S) < 10.0 IU/mL <15 [facility] Thin prep Papanicolaou smear with manual screeningOrdered By: Angus Batista on 02-18-2023 Thin prep Papanicolaou smear with manual screening Negative Negative [facility] Comment on above: Lyme antibodies not detected. [...] Iron (Unsp spec) [Mass/Mass] 66 ug/dL 50-170 [facility] Laboratory - Chemistry and C hemistry - challengeOrdered By: Angus Batista on 11-25-2022 Free T4 [Mass/Vol] 0.88 ng/dL 0.76-1.46 [facility] No Panel InformationOrdered By: Angus Batista on 11-25-2022 Thyroid Stimulating Hormone (TSH) 2.51 uIU/mL 0.358-3.74 [facility] Total Iron Binding Capacity 356 ug/dL 250-450 [facility] Serum or plasma ferritin asa surement (mass/volume)Ordered By: Angus Batista on 11-25-2022 Ferritin [Mass/Vol] 153 ng/mL 8-252 [facility] Serum or plasma iron saturat ion measurement (mass fraction)Ordered By: Angus Batista on 11-25-2022 Iron saturation [Mass fraction] 18.5 % 15.0-55.0 [facility] Stool gastrointestinal hemog lobin detection by immunologic methodOrdered By: Angus Batista on 11-14-2022 Lower GI hemoglobin IA Ql (Stl) [facility] Lower GI hemoglobin IA Ql (Stl) [facility] Stool gastrointestinal hemog lobin detection by immunologic methodOrdered By: JESS ZAZUETA on 11-13-2022 Lower GI hemoglobin IA Ql (Stl) [facility] Lower GI hemoglobin IA Ql (Stl) [facility] Stool gastrointestinal hemog lobin detection by immunologic methodOrdered By: Angus Batista on 11-12-2022 Lower GI hemoglobin IA Ql (Stl) [facility] Lower GI hemoglobin IA Ql (Stl) [facility] Iron measurement (mass/mass) Ordered By: Angus Batista on 11-08-2022 Iron (Unsp spec) [Mass/Mass] 120 ug/dL 50-170 [facility] Laboratory - Chemistry and C hemistry - challengeOrdered By: Angus Batista on 11-08-2022 Cobalamin (Vitamin B12) [Mass/Vol] 480 pg/mL 211-911 [facility] Free T4 [Mass/Vol] 0.77 ng/dL 0.76-1.46 [facility] No Panel InformationOrdered By: Angus Batista on 11-08-2022 Thyroglobulin Antibody < 1.0 IU/mL 0.0-0.9 [facility] Comment on above: Thyroglobulin Antibo dy measured by StyleSaintMethodologyPerformed at: [employer] [address] [id number] Director: Flex Chavez PhD, Phone: [phone] Total Iron Binding Capacity 390 ug/dL 250-450 [facility] Serum or plasma ferritin asa surement (mass/volume)Ordered By: Angus Batista on 11-08-2022 Ferritin [Mass/Vol] 168 ng/mL 8-252 [facility] Serum or plasma iron saturat ion measurement (mass fraction)Ordered By: Angus Batista on 11-08-2022 Iron saturation [Mass fraction] 30.8 % 15.0-55.0 [facility] Serum or plasma thyroperoxid ase antibody assay (units/volume)Ordered By: Angus Batista on 11-08-2022 TPO Ab Qn [IU]/mL 0-34 [facility] No Panel InformationOrdered By: Ana Maria Lomax on 11-07-2022 Follicle Stimulating Hormone 1.4 mIU/mL [facility] Comment on above: NORMAL REFERENCE RAN GES FEMALE FOLLICULAR 2.3 - 12.6 mIU/mL MID-CYCLE PEAK 5.2 - 17.5 mIU/mL LUTEAL 1.7 - 12.9 mIU/mL POST-MENOPAUSAL ON MHT 5.9 - 72.8 mIU/mL NOT ON MHT 12.7 - 132.2 mlU/mL MALE 0.7 - 10.8 mIU/mL Luteinizing Hormone 2.3 mIU/mL [facility] Comment on above: NORMAL REFERENCE RAN GES FEMALE FOLLICULAR 1.9 - 26.2 mIU/mL MID-CYCLE PEAK 22.8 - 76.1 mIU/mL LUTEAL 0.6 - 16.6 mIU/mL POST-MENOPAUSAL ON MHT 1.1 - 52.4 mIU/mL NOT ON MHT 8.6 - 61.8 mIU/mL MALE 1.2 - 10.6 mIU/mL Thyroid Stimulating Hormone (TSH) 5.12 uIU/mL 0.358-3.74 [facility] Serum or plasma estradiol (E 2) measurement (mass/volume)Ordered By: Ana Maria Lomax on 11-07-2022 E2 [Mass/Vol] 300.0 pg/mL [facility] Comment on above: NORMAL REFERENCE RAN GES [...] Auto (Unsp spec) [#/Vol] 2.83 10*3/uL 0.83-4.51 [facility] Absolute reticulocyte countO rdered By: HEALTH ASSESSMENT on 10-29-2022 Reticulocytes (Bld) [#/Vol] 0.00 10*3/uL 0-5 [facility] Basophil percentageOrdered B y: HEALTH ASSESSMENT on 10-29-2022 Basophil percentage 4.9 mg/dL 2.5-4.9 [facility] Bilirubin [Mass/Vol] 0.30 mg/dL 0.20-1.00 [facility] Comment on above: For patients on eltr ombopag therapy, use of Dimension [place] TBIL is not recommended. Chloride [Moles/Vol] 109 mmol/L 98-107 [facility] Cholesterol [Mass/Vol] 200 mg/dL <200 [facility] Comment on above: <200 mg/dL Desirable 200-240 mg/dL Borderline >240 mg/dL High Risk Glucose [Mass/Vol] 101 mg/dL 74-106 [facility] Comment on above: Fasting Glucose resu lt from 100 to 125 mg/dL suggests IMPAIRED HOMEOSTASIS per A.D.A. criteria. LDH [Catalytic activity/Vol] 212 U/L 84-246 [facility] Neutrophils (Bld) [#/Vol] 3.2 10*3/uL 2.0-7.7 [facility] Potassium [Moles/Vol] 4.4 mmol/L 3.5-5.1 [facility] Protein [Mass/Vol] 6.7 g/dL 6.4-8.2 [facility] Sodium [Moles/Vol] 141 mmol/L 136-145 [facility] Triglyceride [Mass/Vol] 234 mg/dL <199 [facility] Comment on above: The drugs N-Acetylcy steine and Metamizole may falsely depress this assay.Serum Triglycerides Reference Interval Normal <150 mg/dL Borderline high 150 - 199 mg/dL High 200 - 499 mg/dL Very High > or = 500 mg/dL WBC (Bld) [#/Vol] 6.8 10*3/uL 4.4-11.0 [facility] Bilirubin Test strip Ql (U)O rdered By: HEALTH ASSESSMENT on 10-29-2022 Bilirubin Ql (U) 1 mg/dL Negative [facility] Comment on above: COLOR OF URINE MAY A FFECT DIPSTICK RESULTS. Blood erythrocytes count (nu mber/volume)Ordered By: HEALTH ASSESSMENT on 10-29-2022 RBC (Bld) [#/Vol] 3.83 10*6/uL 4.2-5.4 [facility] Blood hemoglobin measurement (mass/volume)Ordered By: HEALTH ASSESSMENT on 10-29-2022 Hemoglobin (Bld) [Mass/Vol] 11.8 g/dL 12.0-15.0 [facility] Blood platelet mean volumeOr dered By: HEALTH ASSESSMENT on 10-29-2022 Platelet mean volume (Bld) [Entitic vol] 10.4 fL 6.2-12.0 [facility] Determination of erythrocyte mean corpuscular volume (MCV)Ordered By: HEALTH ASSESSMENT on 10-29-2022 MCV (RBC) [Entitic vol] 94.3 fL 81-99 [facility] Direct bilirubinOrdered By: HEALTH ASSESSMENT on 10-29-2022 Bilirubin.direct [Mass/Vol] 0.10 mg/dL 0.00-0.30 [facility] Hematocrit Auto (Bld) [Volum e fraction]Ordered By: HEALTH ASSESSMENT on 10-29-2022 Hematocrit (Bld) [Volume fraction] 36.1 % 37-47 [facility] Ketones Test strip Ql (U)Ord ered By: HEALTH ASSESSMENT on 10-29-2022 Ketones Ql (U) 5 mg/dl Negative [facility] - Chemistry and C hemistry - challengeOrdered By: HEALTH ASSESSMENT on 10-29-2022 ALP [Catalytic activity/Vol] 48 U/L 45-117 [facility] ALT [Catalytic activity/Vol] 28 U/L 13-56 [facility] Cholesterol.total/Jennifer sterol in HDL [Mass ratio] 4.30 {ratio} [facility] CO2 [Moles/Vol] 28.0 mmol/L 21.0-32.0 [facility] Globulin (S) [Mass/Vol] 3.1 g/dL 2.2-4.2 [facility] Urea nitrogen/Creatinine [Mass ratio] 13.7 mg/mg 10-20 [facility] - Hematology and Cell countsOrdered By: HEALTH ASSESSMENT on 10-29-2022 Erythrocyte distribution width (RBC) [Entitic vol] 45.2 fL 35.1-43.9 [facility] Erythrocyte distribution width (RBC) [Ratio] 13.2 % 11.6-14.6 [facility] MCH (RBC) [Entitic mass] 30.8 pg 27.0-32.0 [facility] Nucleated RBC/100 WBC (Bld) [Ratio] 0 % 0-5 [facility] MCHC Auto (RBC) [Mass/Vol]Or dered By: HEALTH ASSESSMENT on 10-29-2022 MCHC (RBC) [Mass/Vol] 32.7 g/dL 32-36 [facility] Nitrite Test strip Ql (U)Ord ered By: HEALTH ASSESSMENT on 10-29-2022 Nitrite Ql (U) Negative Negative [facility] No Panel InformationOrdered By: HEALTH ASSESSMENT on 10-29-2022 Estimated GFR (MDRD) Amer 85 mL/min >60 [facility] Comment on above: GFR Calc Estimated GFR (MDRD) Non-Af Amer 70 mL/min >60 [facility] Comment on above: Non- GFR Calc Platelets bldOrdered By: EMMY LT ASSESSMENT on 10-29-2022 Platelets (Bld) [#/Vol] 249 10*3/uL 150-450 [facility] Protein Test strip Ql (U)Ord ered By: HEALTH ASSESSMENT on 10-29-2022 Protein Ql (U) 30 mg/dl Negative [facility] Segmented neutrophils/100 WB C Auto (Bld)Ordered By: HEALTH ASSESSMENT on 10-29-2022 Segmented neutrophils/100 WBC (Bld) 47.2 % 47-70 [facility] Serum or plasma albumin milton urement (mass/volume)Ordered By: HEALTH ASSESSMENT on 10-29-2022 Albumin [Mass/Vol] 3.6 g/dL 3.2-5.0 [facility] Serum or plasma albumin/glob ulin mass ratioOrdered By: HEALTH ASSESSMENT on 10-29-2022 Albumin/Globulin [Mass ratio] 1.2 {ratio} 0.9-2.4 [facility] Serum or plasma calcium milton urement (mass/volume)Ordered By: HEALTH ASSESSMENT on 10-29-2022 Calcium [Mass/Vol] 8.9 mg/dL 8.5-10.1 [facility] Serum or plasma cholesterol in HDL measurement (mass/volume)Ordered By: HEALTH ASSESSMENT on 10-29-2022 Cholesterol in HDL [Mass/Vol] 47 mg/dL >40 [facility] Comment on above: The drugs N-Acetylcy steine and Metamizole may falsely depress this assay. Reference Range HDL <40 mg/dL Low HDL Cholesterol HDL >or= 60 mg/dL High HDL Cholesterol Serum or plasma cholesterol in VLDL measurement (mass/volume)Ordered By: HEALTH ASSESSMENT on 10-29-2022 Cholesterol in VLDL [Mass/Vol] 47 mg/dL 5-40 [facility] Serum or plasma creatinine m easurement (mass/volume)Ordered By: HEALTH ASSESSMENT on 10-29-2022 Creatinine [Mass/Vol] 0.95 mg/dL 0.55-1.02 [facility] Comment on above: The validity of the calculated GFR & GFRAA in patients over 70 years has not been determined. Clinical correlation is essential. Serum or plasma low density lipoprotein (LDL) cholesterol measurement (mass/volume)Ordered By: HEALTH ASSESSMENT on 10-29-2022 Cholesterol in LDL [Mass/Vol] 106 mg/dL 0-130 [facility] Serum or plasma urea nitroge n measurement (mass/volume)Ordered By: HEALTH ASSESSMENT on 10-29-2022 Urea nitrogen [Mass/Vol] 13 mg/dL 7-18 [facility] Serum or plasma uric acid me asurement (mass/volume)Ordered By: HEALTH ASSESSMENT on 10-29-2022 Urate [Mass/Vol] 6.2 mg/dL 2.6-6.0 [facility] Comment on above: The drugs N-Acetylcy steine and Metamizole may falsely depress this assay. Thin prep Papanicolaou smear with manual screeningOrdered By: HEALTH ASSESSMENT on 10-29-2022 Thin prep Papanicolaou smear with manual screening 22 U/L 15-37 [facility] Thin prep Papanicolaou smear with manual screening 4 5-15 [facility] Urine blood detectionOrdered By: HEALTH ASSESSMENT on 10-29-2022 RBC Ql (U) 25 /ul Negative [facility] Urine clarityOrdered By: [facility] ASSESSMENT on 10-29-2022 Clarity (U) Cloudy Clear [facility] Urine color determinationOrd ered By: HEALTH ASSESSMENT on 10-29-2022 Color (U) Yellow Yellow [facility] Urine glucose detectionOrder ed By: HEALTH ASSESSMENT on 10-29-2022 Glucose Ql (U) Normal mg/dl Normal [facility] Urine leukocyte esterase det ection by dipstickOrdered By: HEALTH ASSESSMENT on 10-29-2022 Leukocyte esterase Test strip Ql (U) 25 /ul Negative [facility] Urine pHOrdered By: HEALTH A SSESSMENT on 10-29-2022 pH (U) 5.0 [pH] 5.0 - 8.0 [facility] Urine specific gravity measu rementOrdered By: HEALTH ASSESSMENT on 10-29-2022 Specific gravity (U) [Rel density] 1.030 1.002-1.03 0 [facility] Urobilinogen Auto test strip Ql (U)Ordered By: HEALTH ASSESSMENT on 10-29-2022 Urobilinogen Ql (U) 1 mg/dl Normal [facility] Absolute lymphocyte countOrd ered By: Angus Batista on 08-07-2022 Lymphocytes Auto (Unsp spec) [#/Vol] 2.01 10*3/uL 0.83-4.51 [facility] Basophil percentageOrdered B y: Angus Batista on 08-07-2022 Basophils/100 WBC (Bld) 0.6 % 0-1 [facility] Bilirubin [Mass/Vol] 0.40 mg/dL 0.20-1.00 [facility] Comment on above: For patients on eltr ombopag therapy, use of Dimension [place] TBIL is not recommended. Chloride [Moles/Vol] 109 mmol/L 98-107 [facility] Cholesterol [Mass/Vol] 227 mg/dL <200 [facility] Comment on above: <200 mg/dL Desirable 200-240 mg/dL Borderline >240 mg/dL High Risk Eosinophils/100 WBC (Bld) 2.0 % 0-5 [facility] Glucose [Mass/Vol] 96 mg/dL 74-106 [facility] Neutrophils (Bld) [#/Vol] 4.3 10*3/uL 2.0-7.7 [facility] Neutrophils/100 WBC (Bld) 61.1 % 47-70 [facility] Potassium [Moles/Vol] 4.2 mmol/L 3.5-5.1 [facility] Protein [Mass/Vol] 7.4 g/dL 6.4-8.2 [facility] Sodium [Moles/Vol] 139 mmol/L 136-145 [facility] Triglyceride [Mass/Vol] 142 mg/dL <199 [facility] Comment on above: The drugs N-Acetylcy steine and Metamizole may falsely depress this assay.Serum Triglycerides Reference Interval Normal <150 mg/dL Borderline high 150 - 199 mg/dL High 200 - 499 mg/dL Very High > or = 500 mg/dL WBC (Bld) [#/Vol] 7.1 10*3/uL 4.4-11.0 [facility] Blood erythrocytes count (nu mber/volume)Ordered By: Agnus Batista on 08-07-2022 RBC (Bld) [#/Vol] 4.10 10*6/uL 4.2-5.4 [facility] Blood hemoglobin measurement (mass/volume)Ordered By: Angus Batista on 08-07-2022 Hemoglobin (Bld) [Mass/Vol] 12.4 g/dL 12.0-15.0 [facility] Blood lymphocytes/100 leukoc ytesOrdered By: Angus Batista on 08-07-2022 Lymphocytes/100 WBC (Bld) 28.5 % 19-41 [facility] Blood monocytes/100 leukocyt esOrdered By: Angus Batista on 08-07-2022 Monocytes/100 WBC (Bld) 7.5 % 0-10 [facility] Blood platelet mean volumeOr dered By: Angus Batista on 08-07-2022 Platelet mean volume (Bld) [Entitic vol] 10.6 fL 6.2-12.0 [facility] Determination of erythrocyte mean corpuscular volume (MCV)Ordered By: Angus Batista on 08-07-2022 MCV (RBC) [Entitic vol] 93.4 fL 81-99 [facility] Hematocrit Auto (Bld) [Volum e fraction]Ordered By: Angus Batista on 08-07-2022 Hematocrit (Bld) [Volume fraction] 38.3 % 37-47 [facility] - Chemistry and C hemistry - challengeOrdered By: Angus Batista on 08-07-2022 ALP [Catalytic activity/Vol] 49 U/L 45-117 [facility] ALT [Catalytic activity/Vol] 30 U/L 13-56 [facility] CO2 [Moles/Vol] 25.0 mmol/L 21.0-32.0 [facility] Cobalamin (Vitamin B12) [Mass/Vol] 279 pg/mL 211-911 [facility] Globulin (S) [Mass/Vol] 3.6 g/dL 2.2-4.2 [facility] Urea nitrogen/Creatinine [Mass ratio] 12.0 mg/mg 10-20 [facility] - Hematology and Cell countsOrdered By: Angus Batista on 08-07-2022 Erythrocyte distribution width (RBC) [Entitic vol] 44.0 fL 35.1-43.9 [facility] Erythrocyte distribution width (RBC) [Ratio] 12.8 % 11.6-14.6 [facility] Immature granulocytes/100 WBC (Bld) 0.300 % 0.0-0.9 [facility] Comment on above: IG% - Immature Granu locytes (promyelocytes, myelocytes and metamyelocytes) > 1% indicates that a LEFT SHIFT is Present. MCH (RBC) [Entitic mass] 30.2 pg 27.0-32.0 [facility] Nucleated RBC/100 WBC (Bld) [Ratio] 0 % 0-5 [facility] MCHC Auto (RBC) [Mass/Vol]Or dered By: Angus Batista on 08-07-2022 MCHC (RBC) [Mass/Vol] 32.4 g/dL 32-36 [facility] No Panel InformationOrdered By: Angus Batista on 08-07-2022 Estimated GFR (MDRD) Amer 89 mL/min >60 [facility] Comment on above: GFR Calc Estimated GFR (MDRD) Non-Af Amer 73 mL/min >60 [facility] Comment on above: Non- GFR Calc Thyroid Stimulating Hormone (TSH) 1.83 uIU/mL 0.358-3.74 [facility] Vitamin D 25-Hydroxy 53.2 ng/mL [facility] Comment on above: Vitamin D 25(OH) Sta tus Range Deficiency <20 ng/mL (50nmol/L) Insufficiency 20 - 30 ng/mL (50 - 75 nmol/L) Sufficiency 30 - 100 ng/mL (75 - 250 nmol/L) Toxicity >100 ng/mL (>250 nmol/L) Platelets bldOrdered By: Janae Batista on 08-07-2022 Platelets (Bld) [#/Vol] 324 10*3/uL 150-450 [facility] Serum or plasma albumin milton urement (mass/volume)Ordered By: Angus Batista on 08-07-2022 Albumin [Mass/Vol] 3.8 g/dL 3.2-5.0 [facility] Serum or plasma albumin/glob ulin mass ratioOrdered By: Angus Batista on 08-07-2022 Albumin/Globulin [Mass ratio] 1.1 {ratio} 0.9-2.4 [facility] Serum or plasma calcium milton urement (mass/volume)Ordered By: Angus Batista on 08-07-2022 Calcium [Mass/Vol] 9.2 mg/dL 8.5-10.1 [facility] Serum or plasma cholesterol in HDL measurement (mass/volume)Ordered By: Angus Batista on 08-07-2022 Cholesterol in HDL [Mass/Vol] 57 mg/dL >40 [facility] Comment on above: The drugs N-Acetylcy steine and Metamizole may falsely depress this assay. Reference Range HDL <40 mg/dL Low HDL Cholesterol HDL >or= 60 mg/dL High HDL Cholesterol Serum or plasma cholesterol in VLDL measurement (mass/volume)Ordered By: Angus Batista on 08-07-2022 Cholesterol in VLDL [Mass/Vol] 28 mg/dL 5-40 [facility] Serum or plasma creatinine m easurement (mass/volume)Ordered By: Angus Batista on 08-07-2022 Creatinine [Mass/Vol] 0.91 mg/dL 0.55-1.02 [facility] Comment on above: The validity of the calculated GFR & GFRAA in patients over 70 years has not been determined. Clinical correlation is essential. Serum or plasma low density lipoprotein (LDL) cholesterol measurement (mass/volume)Ordered By: Angus Batista on 08-07-2022 Cholesterol in LDL [Mass/Vol] 142 mg/dL 0-130 [facility] Serum or plasma urea nitroge n measurement (mass/volume)Ordered By: Angus Batista on 08-07-2022 Urea nitrogen [Mass/Vol] 11 mg/dL 7-18 [facility] Thin prep Papanicolaou smear with manual screeningOrdered By: Angus Batista on 08-07-2022 Thin prep Papanicolaou smear with manual screening 21 U/L 15-37 [facility] Thin prep Papanicolaou smear with manual screening 5 5-15 [facility] Absolute lymphocyte countOrd ered By: Cuco Edge on 06-07-2022 Lymphocytes Auto (Unsp spec) [#/Vol] 0.59 10*3/uL 0.83-4.51 [facility] Basophil percentageOrdered B y: Cuco Edge on 06-07-2022 Basophils/100 WBC (Bld) 0.3 % 0-1 [facility] Bilirubin [Mass/Vol] 0.60 mg/dL 0.20-1.00 [facility] Comment on above: For patients on eltr ombopag therapy, use of Dimension [place] TBIL is not recommended. Chloride [Moles/Vol] 109 mmol/L 98-107 [facility] Eosinophils/100 WBC (Bld) 0.3 % 0-5 [facility] Glucose [Mass/Vol] 103 mg/dL 74-106 [facility] Comment on above: Fasting Glucose resu lt from 100 to 125 mg/dL suggests IMPAIRED HOMEOSTASIS per A.D.A. criteria. Neutrophils (Bld) [#/Vol] 5.6 10*3/uL 2.0-7.7 [facility] Neutrophils/100 WBC (Bld) 80.4 % 47-70 [facility] Potassium [Moles/Vol] 3.3 mmol/L 3.5-5.1 [facility] Protein [Mass/Vol] 7.0 g/dL 6.4-8.2 [facility] Sodium [Moles/Vol] 137 mmol/L 136-145 [facility] WBC (Bld) [#/Vol] 7.0 10*3/uL 4.4-11.0 [facility] Blood erythrocytes count (nu mber/volume)Ordered By: Cuco Edge on 06-07-2022 RBC (Bld) [#/Vol] 4.01 10*6/uL 4.2-5.4 [facility] Blood hemoglobin measurement (mass/volume)Ordered By: Cuco Edge on 06-07-2022 Hemoglobin (Bld) [Mass/Vol] 12.3 g/dL 12.0-15.0 [facility] Blood lymphocytes/100 leukoc ytesOrdered By: Cuco Edge on 06-07-2022 Lymphocytes/100 WBC (Bld) 8.4 % 19-41 [facility] Blood manual differential co mment interpretation (narrative result)Ordered By: Cuco Edge on 06-07-2022 Manual differential comment Cruz (Bld) [Interp] SCANNED [facility] Comment on above: LYMPHOPENIA Blood monocytes/100 leukocyt esOrdered By: Cuco Edge on 06-07-2022 Monocytes/100 WBC (Bld) 10.0 % 0-10 [facility] Blood platelet mean volumeOr dered By: Cuco Edge on 06-07-2022 Platelet mean volume (Bld) [Entitic vol] 10.2 fL 6.2-12.0 [facility] Determination of erythrocyte mean corpuscular volume (MCV)Ordered By: Cuco Edge on 06-07-2022 MCV (RBC) [Entitic vol] 90.8 fL 81-99 [facility] Direct bilirubinOrdered By: Cuco Edge on 06-07-2022 Bilirubin.direct [Mass/Vol] 0.22 mg/dL 0.00-0.30 [facility] Hematocrit Auto (Bld) [Volum e fraction]Ordered By: Cuco Edge on 06-07-2022 Hematocrit (Bld) [Volume fraction] 36.4 % 37-47 [facility] - Chemistry and C hemistry - challengeOrdered By: Cuco Edge on 06-07-2022 ALP [Catalytic activity/Vol] 55 U/L 45-117 [facility] ALT [Catalytic activity/Vol] 52 U/L 13-56 [facility] CO2 [Moles/Vol] 23.0 mmol/L 21.0-32.0 [facility] Globulin (S) [Mass/Vol] 3.4 g/dL 2.2-4.2 [facility] Lipase [Catalytic activity/Vol] 28 U/L 13-75 [facility] Comment on above: Please note:LIPASE r evised reference range effective 22. New Lipase methodology. Expected to produce lower values than the previous assay method. NEW Reference Range: 13 - 75 U/L Magnesium [Mass/Vol] 1.4 mg/dL 1.6-2.6 [facility] Urea nitrogen/Creatinine [Mass ratio] 11.1 mg/mg 10-20 [facility] - Hematology and Cell countsOrdered By: Cuco Edge on 06-07-2022 Erythrocyte distribution width (RBC) [Entitic vol] 42.0 fL 35.1-43.9 [facility] Erythrocyte distribution width (RBC) [Ratio] 12.8 % 11.6-14.6 [facility] Immature granulocytes/100 WBC (Bld) 0.600 % 0.0-0.9 [facility] Comment on above: IG% - Immature Granu locytes (promyelocytes, myelocytes and metamyelocytes) > 1% indicates that a LEFT SHIFT is Present. MCH (RBC) [Entitic mass] 30.7 pg 27.0-32.0 [facility] Nucleated RBC/100 WBC (Bld) [Ratio] 0 % 0-5 [facility] MCHC Auto (RBC) [Mass/Vol]Or dered By: Cuco Edge on 06-07-2022 MCHC (RBC) [Mass/Vol] 33.8 g/dL 32-36 [facility] No Panel InformationOrdered By: Cuco Edge on 06-07-2022 Estimated Creatinine Clearance Calc 77.01 ml/min [facility] Estimated GFR (MDRD) Amer 90 mL/min >60 [facility] Comment on above: GFR Calc Estimated GFR (MDRD) Non-Af Amer 75 mL/min >60 [facility] Comment on above: Non- GFR Calc Platelets bldOrdered By: Hiram Edge on 06-07-2022 Platelets (Bld) [#/Vol] 230 10*3/uL 150-450 [facility] Serum or plasma albumin milton urement (mass/volume)Ordered By: Cuco Edge on 06-07-2022 Albumin [Mass/Vol] 3.6 g/dL 3.2-5.0 [facility] Serum or plasma calcium milton urement (mass/volume)Ordered By: Cuco Edge on 06-07-2022 Calcium [Mass/Vol] 8.6 mg/dL 8.5-10.1 [facility] Serum or plasma creatinine m easurement (mass/volume)Ordered By: Cuco Edge on 06-07-2022 Creatinine [Mass/Vol] 0.90 mg/dL 0.55-1.02 [facility] Comment on above: The validity of the calculated GFR & GFRAA in patients over 70 years has not been determined. Clinical correlation is essential. Serum or plasma urea nitroge n measurement (mass/volume)Ordered By: Cuco Edge on 04-21-2023 Urea nitrogen [Mass/Vol] 10 mg/dL 7-18 [facility] Thin prep Papanicolaou smear with manual screeningOrdered By: Cuco Edge on 06-07-2022 Thin prep Papanicolaou smear with manual screening 53 U/L 15-37 [facility] Thin prep Papanicolaou smear with manual screening 5 5-15 [facility] Basophil percentageOrdered B y: Dr. Lomax on 05-31-2022 Testosterone [Mass/Vol] 30 ng/dL 8-60 [facility] Free testosterone percentage Ordered By: Dr. Lomax on 05-31-2022 Testosterone Free/Testosterone.total [Mass fraction] 0.80 % 0.50-2.80 [facility] No Panel InformationOrdered By: Dr. Lomax on 05-31-2022 Dehydroepiandrosterone Sulfate 260.0 ug/dL 57.3-279.2 [facility] Comment on above: Performed at: [employer] [facility] [employer] [address] [id number] Director: Flex Chavez PhD, Phone: [phone] at: [facility] [employer] [id number] Director: Aric Marley MD, Phone: [phone] Thyroid Stimulating Hormone (TSH) 1.58 uIU/mL 0.358-3.74 [facility] Serum or plasma estradiol (E 2) measurement (mass/volume)Ordered By: Dr. Lomax on 05-31-2022 E2 [Mass/Vol] 363.4 pg/mL [facility] Comment on above: NORMAL REFERENCE RAN GES [...] 05-31-2022 Testosterone Free [Mass/Vol] 0.24 ng/dL 0.10-0.85 [facility] Culture, urineOrdered By: Sudha Batista on 03-01-2022 Bacteria identified Cx Nom (U) Escherichia coli [facility] Basophil percentageOrdered B y: Angus Batista on 02-27-2022 Basophil percentage 0-5 SEEN /hpf 0-5 [facility] Bilirubin Test strip Ql (U)O rdered By: Angus Batista on 02-27-2022 Bilirubin Ql (U) Negative Negative [facility] Ketones Test strip Ql (U)Ord ered By: Angus Batista on 02-27-2022 Ketones Ql (U) Negative Negative [facility] Mucus LM Ql (Urine sed)Order ed By: Angus Batista on 02-27-2022 Mucus Ql (Urine sed) 0 SEEN /hpf [facility] Nitrite Test strip Ql (U)Ord ered By: Angus Batista on 02-27-2022 Nitrite Ql (U) Negative Negative [facility] Protein Test strip Ql (U)Ord ered By: Angus Batista on 02-27-2022 Protein Ql (U) 15 mg/dl Negative [facility] Squamous epithelial cells de tection in urine sediment by light microscopyOrdered By: Angus Batista on 02-27-2022 Epithelial cells.squamous LM Ql (Urine sed) 5-10 SEEN /hpf 5-10 [facility] Urine blood detectionOrdered By: Angus Batista on 02-27-2022 RBC Ql (U) 50 /ul Negative [facility] RBC Ql (U) 0-5 SEEN /hpf 0-5 [facility] Urine clarityOrdered By: Janae Batista on 02-27-2022 Clarity (U) Sl. Cloudy Clear [facility] Urine color determinationOrd ered By: Angus Batista on 02-27-2022 Color (U) Yellow Yellow [facility] Urine glucose detectionOrder ed By: Angus Batista on 02-27-2022 Glucose Ql (U) Normal mg/dl Normal [facility] Urine leukocyte esterase det ection by dipstickOrdered By: Angus Batista on 02-27-2022 Leukocyte esterase Test strip Ql (U) 25 /ul Negative [facility] Urine pHOrdered By: Angus Khalil er on 02-27-2022 pH (U) 5.0 [pH] 5.0 - 8.0 [facility] Urine sediment bacteria coun t by microscopy (number/high power field)Ordered By: Angus Batista on 02-27-2022 Bacteria LM.HPF (Urine sed) [#/Area] 2 /[HPF] None Seen [facility] Urine specific gravity measu rementOrdered By: Angus Batista on 02-27-2022 Specific gravity (U) [Rel density] 1.020 1.002-1.03 0 [facility] Urobilinogen Auto test strip Ql (U)Ordered By: Angus Batista on 02-27-2022 Urobilinogen Ql (U) Normal mg/dl Normal [facility] Absolute lymphocyte countOrd ered By: ED PROVIDER on 02-13-2022 Lymphocytes Auto (Unsp spec) [#/Vol] 1.47 10*3/uL 0.83-4.51 [facility] Basophil percentageOrdered B y: ED PROVIDER on 02-13-2022 Basophils/100 WBC (Bld) 0.6 % 0-1 [facility] Chloride [Moles/Vol] 108 mmol/L 98-107 [facility] Eosinophils/100 WBC (Bld) 2.6 % 0-5 [facility] Glucose [Mass/Vol] 97 mg/dL 74-106 [facility] Neutrophils (Bld) [#/Vol] 3.9 10*3/uL 2.0-7.7 [facility] Neutrophils/100 WBC (Bld) 60.4 % 47-70 [facility] Potassium [Moles/Vol] 3.4 mmol/L 3.5-5.1 [facility] Sodium [Moles/Vol] 141 mmol/L 136-145 [facility] WBC (Bld) [#/Vol] 6.5 10*3/uL 4.4-11.0 [facility] Blood erythrocytes count (nu mber/volume)Ordered By: ED PROVIDER on 02-13-2022 RBC (Bld) [#/Vol] 4.00 10*6/uL 4.2-5.4 [facility] Blood hemoglobin measurement (mass/volume)Ordered By: ED PROVIDER on 02-13-2022 Hemoglobin (Bld) [Mass/Vol] 12.4 g/dL 12.0-15.0 [facility] Blood lymphocytes/100 leukoc ytesOrdered By: ED PROVIDER on 02-13-2022 Lymphocytes/100 WBC (Bld) 22.5 % 19-41 [facility] Blood monocytes/100 leukocyt esOrdered By: ED PROVIDER on 02-13-2022 Monocytes/100 WBC (Bld) 13.7 % 0-10 [facility] Blood platelet mean volumeOr dered By: ED PROVIDER on 02-13-2022 Platelet mean volume (Bld) [Entitic vol] 9.9 fL 6.2-12.0 [facility] Determination of erythrocyte mean corpuscular volume (MCV)Ordered By: ED PROVIDER on 02-13-2022 MCV (RBC) [Entitic vol] 93.0 fL 81-99 [facility] Hematocrit Auto (Bld) [Volum e fraction]Ordered By: ED PROVIDER on 02-13-2022 Hematocrit (Bld) [Volume fraction] 37.2 % 37-47 [facility] - Chemistry and C hemistry - challengeOrdered By: ED PROVIDER on 02-13-2022 CO2 [Moles/Vol] 27.0 mmol/L 21.0-32.0 [facility] Urea nitrogen/Creatinine [Mass ratio] 9.8 mg/mg 10-20 [facility] - Hematology and Cell countsOrdered By: ED PROVIDER on 02-13-2022 Erythrocyte distribution width (RBC) [Entitic vol] 44.0 fL 35.1-43.9 [facility] Erythrocyte distribution width (RBC) [Ratio] 12.9 % 11.6-14.6 [facility] Immature granulocytes/100 WBC (Bld) 0.200 % 0.0-0.9 [facility] Comment on above: IG% - Immature Granu locytes (promyelocytes, myelocytes and metamyelocytes) > 1% indicates that a LEFT SHIFT is Present. MCH (RBC) [Entitic mass] 31.0 pg 27.0-32.0 [facility] Nucleated RBC/100 WBC (Bld) [Ratio] 0 % 0-5 [facility] MCHC Auto (RBC) [Mass/Vol]Or dered By: ED PROVIDER on 02-13-2022 MCHC (RBC) [Mass/Vol] 33.3 g/dL 32-36 [facility] No Panel InformationOrdered By: ED PROVIDER on 02-13-2022 Estimated Creatinine Clearance Calc 85.57 ml/min [facility] Estimated GFR (MDRD) Amer 101 mL/min >60 [facility] Comment on above: GFR Calc Estimated GFR (MDRD) Non-Af Amer 84 mL/min >60 [facility] Comment on above: Non- GFR Calc No Panel InformationOrdered By: Dr. Shin on 02-13-2022 Troponin I High Sensitivity 8 pg/mL 3.0-54.0 [facility] Comment on above: Please Note: New Maryjo t Units and Gender Specific Reference Ranges. For more information see Policy Stat Procedure [place] High Sensitivity Troponin (TNIH) and attachments. Platelets bldOrdered By: ED PROVIDER on 02-13-2022 Platelets (Bld) [#/Vol] 212 10*3/uL 150-450 [facility] [facility] Serum or plasma calcium milton urement (mass/volume)Ordered By: ED PROVIDER on 02-13-2022 Calcium [Mass/Vol] 9.0 mg/dL 8.5-10.1 [facility] Serum or plasma creatinine m easurement (mass/volume)Ordered By: ED PROVIDER on 02-13-2022 Creatinine [Mass/Vol] 0.81 mg/dL 0.55-1.02 [facility] Comment on above: The validity of the calculated GFR & GFRAA in patients over 70 years has not been determined. Clinical correlation is essential. Serum or plasma urea nitroge n measurement (mass/volume)Ordered By: ED PROVIDER on 02-13-2022 Urea nitrogen [Mass/Vol] 8 mg/dL 7-18 [facility] Thin prep Papanicolaou smear with manual screeningOrdered By: ED PROVIDER on 02-13-2022 Thin prep Papanicolaou smear with manual screening 6 5-15 [facility] Culture, urineOrdered By: Sudha Batista on 11-18-2021 Bacteria identified Cx Nom (U) Positive [facility] Basophil percentageOrdered B y: Angus Lester on 11-16-2021 Basophil percentage 0 SEEN /hpf 0-5 [facility] Bilirubin Test strip Ql (U)O rdered By: Angus Batista on 11-16-2021 Bilirubin Ql (U) Negative Negative [facility] Ketones Test strip Ql (U)Ord ered By: Angus Batista on 11-16-2021 Ketones Ql (U) Negative Negative [facility] Mucus LM Ql (Urine sed)Order ed By: Angus Batista on 11-16-2021 Mucus Ql (Urine sed) 0 SEEN /hpf [facility] Nitrite Test strip Ql (U)Ord ered By: Angus Batista on 11-16-2021 Nitrite Ql (U) Negative Negative [facility] Protein Test strip Ql (U)Ord ered By: Angus Batista on 11-16-2021 Protein Ql (U) Negative Negative [facility] Squamous epithelial cells de tection in urine sediment by light microscopyOrdered By: Angus Batista on 11-16-2021 Epithelial cells.squamous LM Ql (Urine sed) 0 SEEN /hpf 5-10 [facility] Urine blood detectionOrdered By: Angus Batista on 11-16-2021 RBC Ql (U) Negative Negative [facility] RBC Ql (U) 0 SEEN /hpf 0-5 [facility] Urine clarityOrdered By: Janae Batista on 11-16-2021 Clarity (U) Clear Clear [facility] Urine color determinationOrd ered By: Angus Batista on 11-16-2021 Color (U) Yellow Yellow [facility] Urine glucose detectionOrder ed By: Angus Batista on 11-16-2021 Glucose Ql (U) Normal mg/dl Normal [facility] Urine leukocyte esterase det ection by dipstickOrdered By: Angus Batista on 11-16-2021 Leukocyte esterase Test strip Ql (U) Negative Negative [facility] Urine pHOrdered By: Angus Khalil er on 11-16-2021 pH (U) 6.5 [pH] 5.0 - 8.0 [facility] Urine sediment bacteria coun t by microscopy (number/high power field)Ordered By: Angus Batista on 11-16-2021 Bacteria LM.HPF (Urine sed) [#/Area] 0 /[HPF] None Seen [facility] Urine specific gravity measu rementOrdered By: Angus Batista on 11-16-2021 Specific gravity (U) [Rel density] 1.005 1.002-1.03 0 [facility] Urobilinogen Auto test strip Ql (U)Ordered By: Angus Batista on 11-16-2021 Urobilinogen Ql (U) Normal mg/dl Normal [facility] Absolute lymphocyte counton 10-20-2021 Lymphocytes Auto (Unsp spec) [#/Vol] 2.42 10*3/uL 0.83-4.51 [facility] Work Phone: Absolute reticulocyte counto n 10-20-2021 Reticulocytes (Bld) [#/Vol] 0.00 10*3/uL 0-5 [facility] Work Phone: Basophil percentageon 2021 Basophil percentage 3.8 mg/dL 2.5-4.9 [facility] Work Phone: Bilirubin [Mass/Vol] 0.40 mg/dL 0.20-1.00 [facility] Work Phone: Comment on above: For patients on eltr ombopag therapy, use of Dimension [place] TBIL is not recommended. Chloride [Moles/Vol] 106 mmol/L 98-107 [facility] Work Phone: Cholesterol [Mass/Vol] 185 mg/dL <200 [facility] Work Phone: Comment on above: <200 mg/dL Desirable 200-240 mg/dL Borderline >240 mg/dL High Risk Glucose [Mass/Vol] 89 mg/dL 74-106 [facility] Work Phone: Neutrophils (Bld) [#/Vol] 7.0 10*3/uL 2.0-7.7 [facility] Work Phone: Potassium [Moles/Vol] 4.5 mmol/L 3.5-5.1 [facility] Work Phone: Comment on above: Slight Hemolysis, Re sult may be falsely increased. Protein [Mass/Vol] 7.2 g/dL 6.4-8.2 [facility] Work Phone: Sodium [Moles/Vol] 139 mmol/L 136-145 [facility] Work Phone: Triglyceride [Mass/Vol] 77 mg/dL <199 [facility] Work Phone: Comment on above: The drugs N-Acetylcy steine and Metamizole may falsely depress this assay.Serum Triglycerides Reference Interval Normal <150 mg/dL Borderline high 150 - 199 mg/dL High 200 - 499 mg/dL Very High > or = 500 mg/dL WBC (Bld) [#/Vol] 10.5 10*3/uL 4.4-11.0 [facility] Work Phone: Bilirubin Test strip Ql (U)o n 10-20-2021 Bilirubin Ql (U) Negative Negative [facility] Work Phone: Blood erythrocytes count (nu mber/volume)on 10-20-2021 RBC (Bld) [#/Vol] 4.04 10*6/uL 4.2-5.4 [facility] Work Phone: Blood hemoglobin measurement (mass/volume)on 10-20-2021 Hemoglobin (Bld) [Mass/Vol] 12.6 g/dL 12.0-15.0 [facility] Work Phone: Blood platelet mean volumeon 10-20-2021 Platelet mean volume (Bld) [Entitic vol] 9.7 fL 6.2-12.0 [facility] Work Phone: Determination of erythrocyte mean corpuscular volume (MCV)on 10-20-2021 MCV (RBC) [Entitic vol] 91.6 fL 81-99 [facility] Work Phone: Direct bilirubinon 2 Bilirubin.direct [Mass/Vol] 0.14 mg/dL 0.00-0.30 [facility] Work Phone: Hematocrit Auto (Bld) [Volum e fraction]on 10-20-2021 Hematocrit (Bld) [Volume fraction] 37.0 % 37-47 [facility] Work Phone: Ketones Test strip Ql (U)on 10-20-2021 Ketones Ql (U) Negative Negative [facility] Work Phone: Laboratory - Chemistry and C hemistry - challengeon 10-20-2021 ALP [Catalytic activity/Vol] 53 U/L 45-117 [facility] Work Phone: [phone] ALT [Catalytic activity/Vol] 38 U/L 13-56 [facility] Work Phone: Cholesterol.total/Jennifer sterol in HDL [Mass ratio] 2.80 {ratio} [facility] Work Phone: [phone] CO2 [Moles/Vol] 27.0 mmol/L 21.0-32.0 [facility] Work Phone: [phone] Globulin (S) [Mass/Vol] 3.6 g/dL 2.2-4.2 [facility] Work Phone: [phone] Urea nitrogen/Creatinine [Mass ratio] 21.0 mg/mg 10-20 [facility] Work Phone: [phone] Laboratory - Hematology and Cell countson 10-20-2021 Erythrocyte distribution width (RBC) [Entitic vol] 44.0 fL 35.1-43.9 [facility] Work Phone: [phone] Erythrocyte distribution width (RBC) [Ratio] 13.1 % 11.6-14.6 [facility] Work Phone: [phone] MCH (RBC) [Entitic mass] 31.2 pg 27.0-32.0 [facility] Work Phone: [phone] Nucleated RBC/100 WBC (Bld) [Ratio] 0 % 0-5 [facility] Work Phone: [phone] MCHC Auto (RBC) [Mass/Vol]on 10-20-2021 MCHC (RBC) [Mass/Vol] 34.1 g/dL 32-36 [facility] Work Phone: [phone] Nitrite Test strip Ql (U)on 10-20-2021 Nitrite Ql (U) Negative Negative [facility] Work Phone: No Panel Informationon 10-20 Estimated GFR (MDRD) Amer 85 mL/min >60 [facility] Work Phone: Comment on above: GFR Calc Estimated GFR (MDRD) Non-Af Amer 70 mL/min >60 [facility] Work Phone: Comment on above: Non- GFR Calc Platelets bldon 10-20-2021 Platelets (Bld) [#/Vol] 318 10*3/uL 150-450 [facility] Work Phone: Protein Test strip Ql (U)on 10-20-2021 Protein Ql (U) Negative Negative [facility] Work Phone: Segmented neutrophils/100 WB C Auto (Bld)on 10-20-2021 Segmented neutrophils/100 WBC (Bld) 66.2 % 47-70 [facility] Work Phone: Serum or plasma albumin milton urement (mass/volume)on 10-20-2021 Albumin [Mass/Vol] 3.6 g/dL 3.2-5.0 [facility] Work Phone: Serum or plasma albumin/glob ulin mass ratioon 10-20-2021 Albumin/Globulin [Mass ratio] 1.0 {ratio} 0.9-2.4 [facility] Work Phone: Serum or plasma calcium milton urement (mass/volume)on 10-20-2021 Calcium [Mass/Vol] 8.8 mg/dL 8.5-10.1 [facility] Work Phone: Serum or plasma cholesterol in HDL measurement (mass/volume)on 10-20-2021 Cholesterol in HDL [Mass/Vol] 65 mg/dL >40 [facility] Work Phone: Comment on above: The drugs N-Acetylcy steine and Metamizole may falsely depress this assay. Reference Range HDL <40 mg/dL Low HDL Cholesterol HDL >or= 60 mg/dL High HDL Cholesterol Serum or plasma cholesterol in VLDL measurement (mass/volume)on 10-20-2021 Cholesterol in VLDL [Mass/Vol] 15 mg/dL 5-40 [facility] Work Phone: Serum or plasma creatinine m easurement (mass/volume)on 10-20-2021 Creatinine [Mass/Vol] 0.95 mg/dL 0.55-1.02 [facility] Work Phone: Comment on above: The validity of the calculated GFR & GFRAA in patients over 70 years has not been determined. Clinical correlation is essential. Serum or plasma low density lipoprotein (LDL) cholesterol measurement (mass/volume)on 10-20-2021 Cholesterol in LDL [Mass/Vol] 105 mg/dL 0-130 [facility] Work Phone: Serum or plasma urea nitroge n measurement (mass/volume)on 10-20-2021 Urea nitrogen [Mass/Vol] 20 mg/dL 7-18 [facility] Work Phone: Serum or plasma uric acid me asurement (mass/volume)on 10-20-2021 Urate [Mass/Vol] 5.9 mg/dL 2.6-6.0 [facility] Work Phone: Comment on above: The drugs N-Acetylcy steine and Metamizole may falsely depress this assay. Thin prep Papanicolaou smear with manual screeningon 10-20-2021 Thin prep Papanicolaou smear with manual screening 30 U/L 15-37 [facility] Work Phone: Comment on above: Slight Hemolysis, Re sult may be falsely increased. Thin prep Papanicolaou smear with manual screening 6 5-15 [facility] Work Phone: Thin prep Papanicolaou smear with manual screening 262 U/L 84-246 [facility] Work Phone: Comment on above: Slight Hemolysis, Re sult may be falsely increased. Urine blood detectionon RBC Ql (U) 25 /ul Negative [facility] Work Phone: Urine clarityon 10-20-2021 Clarity (U) Clear Clear [facility] Work Phone: Urine color determinationon 10-20-2021 Color (U) Yellow Yellow [facility] Work Phone: Urine glucose detectionon Glucose Ql (U) Normal mg/dl Normal [facility] Work Phone: Urine leukocyte esterase det ection by dipstickon 10-20-2021 Leukocyte esterase Test strip Ql (U) Negative Negative [facility] Work Phone: Urine pHon 10-20-2021 pH (U) 5.0 [pH] 5.0 - 8.0 [facility] Work Phone: Urine specific gravity measu rementon 10-20-2021 Specific gravity (U) [Rel density] 1.025 1.002-1.03 0 [facility] Work Phone: Urobilinogen Auto test strip Ql (U)on 10-20-2021 Urobilinogen Ql (U) Normal mg/dl Normal [facility] Work Phone: Culture, urine Bacteria identified Cx Nom (U) Positive [facility] Work Phone: Vital Signs Date Time Vital Sign Value Performing Clinician Faci lity 11-29-2024 14:47-0400 Body height 165.1 cm Angus Batista [employer] Work Phone: [facility] 11-29-2024 14:42-0400 Body mass index (BMI) [Ratio] 33.5 kg/m2 Angus Batista [employer] Work Phone: [facility] 11-29-2024 14:42-0400 Body weight 91.31 kg Angus Batista [employer] Work Phone: [facility] 11-29-2024 14:42-0400 Diastolic blood pressure 76 mm[Hg] Angus Batista [employer] Work Phone: [facility] 11-29-2024 14:42-0400 Systolic blood pressure 117 mm[Hg] Angus Batista [employer] Work Phone: [facility] 10-26-2024 14:35-0400 Body height 165.1 cm Angus Batista [employer] Work Phone: [phone])204-697954 [place] [address] 10-26-2024 14:35-0400 Body mass index (BMI) [Ratio] 33.6 kg/m2 Angus Batista [employer] Work Phone: 4([phone])[phone] [place] [address] 10-26-2024 14:35-0400 Body temperature 98.4 [degF] Angus Batista [employer] Work Phone: 1(519)416-095995 [place] [address] 10-26-2024 14:35-0400 Body weight 91.62 kg Angus Batista [employer] Work Phone: 0(290)183-550295 [place] [address] 10-26-2024 14:35-0400 Diastolic blood pressure 65 mm[Hg] Angus Batista [employer] Work Phone: 4(065)[phone] [place] [address] 10-26-2024 14:35-0400 Heart rate 74 /min Angus Batista [employer] Work Phone: 7(120)038-645695 [place] [address] 10-26-2024 14:35-0400 Respiratory rate 15 /min Angus Batista [employer] Work Phone: 5(410)629-298895 [place] [address] 10-26-2024 14:35-0400 SaO2% (BldA) [Mass fraction] 99 % Angus Batista [employer] Work Phone: 8(680)279-136995 [place] [address] 10-26-2024 14:35-0400 Systolic blood pressure 115 mm[Hg] Angus Batista [employer] Work Phone: 5(177)348-085095 [place] [address] 09-07-2024 16:11-0400 Body temperature 98.2 [degF] Angus Batista [employer] Work Phone: 3(801)991-771895 [place] [address] 09-07-2024 16:11-0400 Diastolic blood pressure 72 mm[Hg] Angus Batista [employer] Work Phone: 9(810)980-347095 [place] [address] 09-07-2024 16:11-0400 Heart rate 67 /min Angus Batista [employer] Work Phone: 6(555)743-615195 [place] [address] 09-07-2024 16:11-0400 Respiratory rate 17 /min Angus Batista [employer] Work Phone: 7(638)397-566695 [place] [address] 09-07-2024 16:11-0400 SaO2% (BldA) [Mass fraction] 99 % Angus Batista [employer] Work Phone: 0(515)297-447795 [place] [address] 09-07-2024 16:11-0400 Systolic blood pressure 122 mm[Hg] Angus Batista [employer] Work Phone: 2(321)957-779995 [place] [address] 09-07-2024 11:16-0400 Body height 165.1 cm Angus Batista [employer] Work Phone: 8(893)518-980395 [place] [address] 09-07-2024 11:16-0400 Body mass index (BMI) [Ratio] 35.8 kg/m2 Angus Batista [employer] Work Phone: 2(034)147-408995 [place] [address] 09-07-2024 11:16-0400 Body weight 97.6 kg Angus Batista [employer] Work Phone: 5(055)412-313195 [place] [address] 06-14-2024 13:15-0400 Body height 165.1 cm Angus Batista [employer] Work Phone: 2(836)847-547595 [place] [address] 06-14-2024 13:15-0400 Body mass index (BMI) [Ratio] 38.6 kg/m2 Angus Batista [employer] Work Phone: 1(792)255-720295 [place] [address] 06-14-2024 13:15-0400 Body weight 105.23 kg Angus Batista [employer] Work Phone: 7(392)663-616695 [place] [address] 06-14-2024 13:15-0400 Diastolic blood pressure 83 mm[Hg] Angus Batista [employer] Work Phone: 4(377)568-539095 [place] [address] 06-14-2024 13:15-0400 Systolic blood pressure 118 mm[Hg] Angus Batista [employer] Work Phone: 3(352)285-469295 [place] [address] 04-09-2024 09:43-0500 Body height 165.1 cm Angus Batista [employer] Work Phone: 0(999)413-166895 [place] [address] 04-09-2024 09:38-0500 Body mass index (BMI) [Ratio] 42.7 kg/m2 Angus Batista [employer] Work Phone: 4(409)383-807095 [place] [address] 04-09-2024 09:38-0500 Body weight 116.57 kg Angus Batista [employer] Work Phone: 4(299)449-661395 [place] [address] 04-09-2024 09:38-0500 Diastolic blood pressure 85 mm[Hg] Angus Batista [employer] Work Phone: 9(478)233-854895 [place] [address] 04-09-2024 09:38-0500 Systolic blood pressure 133 mm[Hg] Angus Batista [employer] Work Phone: 5(401)183-239395 [place] [address] 03-29-2024 22:16-0500 Body temperature 98 [degF] Angus Batista [employer] Work Phone: 0(950)096-455195 [place] [address] 03-29-2024 22:16-0500 Diastolic blood pressure 92 mm[Hg] Angus Batista [employer] Work Phone: 9(736)774-085795 [place] [address] 03-29-2024 22:16-0500 Heart rate 89 /min Angus Batista [employer] Work Phone: 7(472)[phone] [place] [address] 03-29-2024 22:16-0500 Respiratory rate 16 /min Angus Batista [employer] Work Phone: 0(055)605-815295 [place] [address] 03-29-2024 22:16-0500 SaO2% (BldA) [Mass fraction] 99 % Angus Batista [employer] Work Phone: 9(490)983-437295 [place] [address] 03-29-2024 22:16-0500 Systolic blood pressure 140 mm[Hg] Angus Batista [employer] Work Phone: 4(770)[phone] [place] [address] 03-29-2024 19:00-0500 Body mass index (BMI) [Ratio] 43.2 kg/m2 Angus Batista [employer] Work Phone: 1(726)464-578095 [place] [address] 03-29-2024 19:00-0500 Body weight 117.88 kg Angus Batista [employer] Work Phone: 3(182)584-204495 [place] [address] 06-11-2023 08:39-0400 Body temperature 98.2 [degF] [facility] Work Phone: 7(253)641-212595 [place] [address] 06-11-2023 08:39-0400 Diastolic blood pressure 79 mm[Hg] [facility] Work Phone: 2(077)996-603495 [place] [address] 06-11-2023 08:39-0400 Heart rate 56 /min [facility] Work Phone: 8(845)465-241395 [place] [address] 06-11-2023 08:39-0400 Respiratory rate 18 /min [facility] Work Phone: 8(690)644-079495 [place] [address] 06-11-2023 08:39-0400 SaO2% (BldA) [Mass fraction] 94 % [facility] Work Phone: 3(981)349-366495 [place] [address] 06-11-2023 08:39-0400 Systolic blood pressure 116 mm[Hg] [facility] Work Phone: 2(761)955-076795 [place] [address] 06-11-2023 07:01-0400 Body height 165.[address] [facility] Work Phone: 2(847)926-840995 [place] [address] 06-11-2023 07:01-0400 Body mass index (BMI) [Ratio] 43.9 kg/m2 [facility] Work Phone: 0(899)003-395895 [place] [address] 06-11-2023 07:01-0400 Body weight 119.8 kg [facility] Work Phone: 8(589)151-838295 [place] [address] 06-06-2023 14:26-0400 Body mass index (BMI) [Ratio] 44.1 kg/m2 [facility] Work Phone: 2(665)675-633495 [place] [address] 06-06-2023 14:26-0400 Body weight 120.42 kg [facility] Work Phone: 9(152)643-098895 [place] [address] 06-06-2023 14:26-0400 Diastolic blood pressure 78 mm[Hg] [facility] Work Phone: 8(456)430-916695 [place] [address] 06-06-2023 14:26-0400 Systolic blood pressure 124 mm[Hg] [facility] Work Phone: 9(430)935-376495 [place] [address] 05-05-2023 23:55-0400 Body temperature 98 [degF] [facility] Work Phone: 7(689)735-406695 [place] [address] 05-05-2023 23:55-0400 Diastolic blood pressure 62 mm[Hg] [facility] Work Phone: 8(438)219-764095 [place] [address] 05-05-2023 23:55-0400 Heart rate 74 /min [facility] Work Phone: 9(523)561-589195 [place] [address] 05-05-2023 23:55-0400 Respiratory rate 14 /min [facility] Work Phone: 8(216)327-559595 [place] [address] 05-05-2023 23:55-0400 SaO2% (BldA) [Mass fraction] 98 % [facility] Work Phone: 1(793)980-281195 [place] [address] 05-05-2023 23:55-0400 Systolic blood pressure 129 mm[Hg] [facility] Work Phone: 6(576)759-748995 [place] [address] 05-05-2023 21:58-0400 Body height 165.1 cm [facility] Work Phone: 9(440)828-489195 [place] [address] 05-05-2023 21:58-0400 Body mass index (BMI) [Ratio] 44.9 kg/m2 [facility] Work Phone: 8(697)574-937595 [place] [address] 05-05-2023 21:58-0400 Body weight 122.[address] [facility] Work Phone: 0(798)339-941195 [place] [address] 03-27-2023 10:59-0500 Body mass index (BMI) [Ratio] 43.4 kg/m2 [facility] Work Phone: 8(681)356-438795 [place] [address] 03-27-2023 10:59-0500 Body weight 118.61 kg [facility] Work Phone: 9(351)462-007995 [place] [address] 03-27-2023 10:59-0500 Diastolic blood pressure 84 mm[Hg] [facility] Work Phone: 4(755)486-013095 [place] [address] 03-27-2023 10:59-0500 Systolic blood pressure 128 mm[Hg] [facility] Work Phone: 0(999)887-134895 [place] [address] 02-24-2023 13:41-0500 Body height 165.[address] Grisel Solares Work Phone: [facility] 02-24-2023 13:41-0500 Body mass index (BMI) [Ratio] 43 kg/m2 Dr. Grisel Solares Work Phone: [facility] 02-24-2023 13:41-0500 Body weight 117.[address] Grisel Solares Work Phone: [facility] 02-24-2023 13:41-0500 Diastolic blood pressure 79 mm[Hg] Dr. Grisel Solares Work Phone: [facility] 02-24-2023 13:41-0500 Systolic blood pressure 128 mm[Hg] Dr. Grisel Solares Work Phone: [facility] 12-18-2022 09:39-0400 Body temperature 97.3 [degF] Dr. Grisel Solares Work Phone: [facility] 12-18-2022 09:39-0400 Diastolic blood pressure 78 mm[Hg] Dr. Grisel Solares Work Phone: [facility] 12-18-2022 09:39-0400 Heart rate 46 /min Dr. Grisel Solares Work Phone: [facility] 12-18-2022 09:39-0400 Respiratory rate 16 /min Dr. Grisel Solares Work Phone: [facility] 12-18-2022 09:39-0400 SaO2% (BldA) [Mass fraction] 99 % Dr. Grisel Solares Work Phone: [facility] 12-18-2022 09:39-0400 Systolic blood pressure 116 mm[Hg] Dr. Grisel Solares Work Phone: [facility] 12-18-2022 07:28-0400 Body height 165.[address] Grisel Solares Work Phone: [facility] 12-18-2022 07:28-0400 Body mass index (BMI) [Ratio] 42.5 kg/m2 Dr. Grisel Solares Work Phone: [facility] 12-18-2022 07:28-0400 Body weight [address] Grisel Solares Work Phone: [facility] 11-25-2022 11:30-0400 Body height 165.[address] Grisel Solares Work Phone: [facility] 11-25-2022 11:30-0400 Body mass index (BMI) [Ratio] 41.8 kg/m2 Dr. Grisel Solares Work Phone: [facility] 11-25-2022 11:30-0400 Body temperature 98.2 [degF] Dr. Grisel Solares Work Phone: [facility] 11-25-2022 11:30-0400 Body weight 114.[address] Grisel Solares Work Phone: [facility] 11-25-2022 11:30-0400 Diastolic blood pressure 82 mm[Hg] Dr. Grisel Solares Work Phone: [facility] 11-25-2022 11:30-0400 Heart rate 72 /min Dr. Grisel Solares Work Phone: [facility] 11-25-2022 11:30-0400 Respiratory rate 17 /min Dr. Grisel Solares Work Phone: [facility] 11-25-2022 11:30-0400 SaO2% (BldA) [Mass fraction] 97 % Dr. Grisel Solares Work Phone: [facility] 11-25-2022 11:30-0400 Systolic blood pressure 112 mm[Hg] Dr. Grisel Solares Work Phone: [facility] 09-29-2022 21:11-0400 Body height 165.[address] Grisel Solares Work Phone: [facility] 09-29-2022 21:11-0400 Body mass index (BMI) [Ratio] 42.5 kg/m2 Dr. Grisel Solares Work Phone: [facility] 09-29-2022 21:11-0400 Body temperature 96.8 [degF] Dr. Grisel Solares Work Phone: [facility] 09-29-2022 21:11-0400 Body weight [address] Grisel Solares Work Phone: [facility] 09-29-2022 21:11-0400 Diastolic blood pressure 71 mm[Hg] Dr. Grisel Solares Work Phone: [facility] 09-29-2022 21:11-0400 Heart rate 53 /min Dr. Grisel Solares Work Phone: [facility] 09-29-2022 21:11-0400 Respiratory rate 17 /min Dr. Grisel Solares Work Phone: [facility] 09-29-2022 21:11-0400 SaO2% (BldA) [Mass fraction] 100 % Dr. Grisel Solares Work Phone: [facility] 09-29-2022 21:11-0400 Systolic blood pressure 155 mm[Hg] Dr. Grisel Solares Work Phone: [facility] 08-07-2022 10:06-0400 Body height 165.[address] Grisel Solares Work Phone: [facility] 08-07-2022 10:06-0400 Body mass index (BMI) [Ratio] 40.9 kg/m2 Dr. Grisel Solares Work Phone: [facility] 08-07-2022 10:06-0400 Body temperature 98 [degF] Dr. Grisel Solares Work Phone: [facility] 08-07-2022 10:06-0400 Body weight 111.[address] Grisel Solares Work Phone: [facility] 08-07-2022 10:06-0400 Diastolic blood pressure 80 mm[Hg] Dr. Grisel Solares Work Phone: [facility] 08-07-2022 10:06-0400 Heart rate 56 /min Dr. Grisel Solares Work Phone: [facility] 08-07-2022 10:06-0400 Respiratory rate 14 /min Dr. Grisel Solares Work Phone: [facility] 08-07-2022 10:06-0400 SaO2% (BldA) [Mass fraction] 99 % Dr. Grisel Solares Work Phone: [facility] 08-07-2022 10:06-0400 Systolic blood pressure 132 mm[Hg] Dr. Grisel Solares Work Phone: [facility] 06-07-2022 22:14-0400 Body height 165.[address] Grisel Solares Work Phone: [facility] 06-07-2022 22:14-0400 Body mass index (BMI) [Ratio] 41.3 kg/m2 Dr. Grisel Solares Work Phone: [facility] 06-07-2022 22:14-0400 Body temperature 98.7 [degF] Dr. Grisel Solares Work Phone: [facility] 06-07-2022 22:14-0400 Body weight 112.[address] Grisel Solares Work Phone: [facility] 06-07-2022 22:14-0400 Diastolic blood pressure 103 mm[Hg] Dr. Grisel Solares Work Phone: [facility] 06-07-2022 22:14-0400 Heart rate 114 /min Dr. Grisel Solares Work Phone: [facility] 06-07-2022 22:14-0400 Respiratory rate 18 /min Dr. Grisel Solares Work Phone: [facility] 06-07-2022 22:14-0400 SaO2% (BldA) [Mass fraction] 99 % Dr. Grisel Solares Work Phone: [facility] 06-07-2022 22:14-0400 Systolic blood pressure 142 mm[Hg] Dr. Grisel Solares Work Phone: [facility] 03-28-2022 15:03-0500 Body mass index (BMI) [Ratio] 42.3 kg/m2 Dr. Grisel Solares Work Phone: [facility] 03-28-2022 15:03-0500 Body temperature 98.2 [degF] Dr. Grisel Solares Work Phone: [facility] 03-28-2022 15:03-0500 Body weight 115.[address] Grisel Solares Work Phone: [facility] 03-28-2022 15:03-0500 Diastolic blood pressure 78 mm[Hg] Dr. Grisel Solares Work Phone: [facility] 03-28-2022 15:03-0500 Heart rate 55 /min Dr. Grisel Solares Work Phone: [facility] 03-28-2022 15:03-0500 Respiratory rate 16 /min Dr. Grisel Solares Work Phone: [facility] 03-28-2022 15:03-0500 SaO2% (BldA) [Mass fraction] 99 % Dr. Grisel Solares Work Phone: [facility] 03-28-2022 15:03-0500 Systolic blood pressure 130 mm[Hg] Dr. Grisel Solares Work Phone: [facility] 02-27-2022 10:10-0500 Body height 165.[address] Grisel Solares Work Phone: [facility] 02-27-2022 10:10-0500 Body mass index (BMI) [Ratio] 42.4 kg/m2 Dr. Grisel Solares Work Phone: [facility] 02-27-2022 10:10-0500 Body temperature 96.1 [degF] Dr. Grisel Solares Work Phone: [facility] 02-27-2022 10:10-0500 Body weight 115.[address] Grisel Solares Work Phone: [facility] 02-27-2022 10:10-0500 Diastolic blood pressure 82 mm[Hg] Dr. Grisel Solares Work Phone: [facility] 02-27-2022 10:10-0500 Heart rate 69 /min Dr. Grisel Solares Work Phone: [facility] 02-27-2022 10:10-0500 Respiratory rate 18 /min Dr. Grisel Solares Work Phone: [facility] 02-27-2022 10:10-0500 SaO2% (BldA) [Mass fraction] 96 % Dr. Grisel Solares Work Phone: [facility] 02-27-2022 10:10-0500 Systolic blood pressure 112 mm[Hg] Dr. Grisel Solares Work Phone: [facility] 02-13-2022 18:28-0500 SaO2% (BldA) [Mass fraction] 99 % Dr. Grisel Solares Work Phone: [facility] 02-13-2022 17:54-0500 Diastolic blood pressure 92 mm[Hg] Dr. Grisel Solares Work Phone: [facility] 02-13-2022 17:54-0500 Heart rate 60 /min Dr. Grisel Solares Work Phone: [facility] 02-13-2022 17:54-0500 Systolic blood pressure 147 mm[Hg] Dr. Grisel Solares Work Phone: [facility] 02-13-2022 13:32-0500 Body height 165.[address] Grisel Solares Work Phone: [facility] Work Phone: 02-13-2022 13:32-0500 Body mass index (BMI) [Ratio] 41.5 kg/m2 Dr. Grisel Solares Work Phone: [facility] 02-13-2022 13:32-0500 Body temperature 97.4 [degF] Dr. Grisel Solares Work Phone: [facility] 02-13-2022 13:32-0500 Body weight 113.[address] Grisel Solares Work Phone: [facility] 02-13-2022 13:32-0500 Respiratory rate 18 /min Dr. Grisel Solares Work Phone: [facility] 11-16-2021 10:48-0400 Body mass index (BMI) [Ratio] 38.9 kg/m2 Dr. Grisel Solares Work Phone: [facility] 11-16-2021 10:48-0400 Body temperature 96.7 [degF] Dr. Grisel Solares Work Phone: [facility] 11-16-2021 10:48-0400 Body weight 116.[address] Grisel Solares Work Phone: [facility] 11-16-2021 10:48-0400 Diastolic blood pressure 68 mm[Hg] Dr. Grisel Solares Work Phone: [facility] 11-16-2021 10:48-0400 Heart rate 44 /min Dr. Grisel Solares Work Phone: [facility] 11-16-2021 10:48-0400 Respiratory rate 16 /min Dr. Grisel Solares Work Phone: [facility] 11-16-2021 10:48-0400 SaO2% (BldA) [Mass fraction] 98 % Dr. Grisel Solares Work Phone: [facility] 11-16-2021 10:48-0400 Systolic blood pressure 104 mm[Hg] Dr. Grisel Solares Work Phone: [facility] Encounters Encounter Date Encounter Type Care Provider Facility Start: 12-27-2024 ambulatory Angus Batista [facility] Facility :[facility] Start: 12-03-2024 End: 12-03-2024 ambulatory Angus Batista [facility] Facility:[facility] Start: 11-29-2024 End: 11-29-2024 Patient encounter procedure Lindy Castaneda [employer] -[facility] Work Phone: Start: 11-29-2024 End: 11-29-2024 ambulatory Angus Lester [employer] Work Phone: -[facility] Start: 11-29-2024 End: 11-29-2024 ambulatory Angus Batista [facility] Facility:[facility] Start: 10-26-2024 End: 10-26-[address] Harry Fernandes MD -[facility] Work Phone: Start: 10-26-2024 End: 10-26-2024 ambulatory Angus Lester [employer] Work Phone: -[facility] Start: 10-21-2024 Registered Referred [facility] -Laboratory Work Phone: Start: 10-21-2024 ambulatory Health Risk Assessment Facility:[facility] Start: 09-17-2024 End: 09-17-2024 ambulatory Angus Lester [employer] Work Phone: -Laboratory [facility] Start: 09-17-2024 End: 09-17-2024 Patient encounter procedure Ledy Foley [employer] WORK[employer]C -[facility] Start: 09-17-2024 End: 09-17-2024 ambulatory Ledy Foley [facility] Facility:[facility] Start: 09-07-2024 End: 09-07-2024 Emergency department patient visit Angus Batista [employer] Work Phone: -Emergency Department Work Phone: Start: 07-07-2024 ambulatory Angus Batista C [facility] Start: 07-02-2024 End: 07-02-2024 ambulatory Angus Batista [employer] Work Phone: [facility] Work Phone: Start: 07-02-2024 End: 07-02-2024 Patient encounter procedure Ledy Foley [employer] WORK[employer] -Laboratory Work Phone: Start: 07-02-2024 End: 07-02-2024 ambulatory Angus Batista [facility] Facility:[facility] Start: 06-17-2024 End: 06-17-2024 ambulatory Angus Batista [employer] Work Phone: [facility] Work Phone: Start: 06-17-2024 End: 06-17-[address] Carlos Martins MD -[facility] Work Phone: Start: 06-17-2024 End: 06-17-2024 ambulatory Carlos Martins Facility:[facility] Start: 06-14-2024 Encounter for gynecological examination (general) (routine) without abnormal findings Ana Maria Walker [facility] Start: 06-14-2024 End: 06-14-[address] Ana Maria Walker DO [facility] Work Phone: Start: 06-14-2024 End: 06-14-[address] Ana Maria Walker DO [facility] Start: 06-14-2024 End: 06-14-2024 ambulatory Ana Maria Vande Velde Facility:[facility] Start: 06-08-2024 ambulatory Ashkan Tolentino Facility :[facility] Start: 06-08-2024 Non-patient / Non-visit Dr. Ramona robledo MD -[facility]- Start: 06-08-2024 End: 06-08-2024 ambulatory Angus Batista [employer] Work Phone: [facility] Work Phone: Start: 06-08-2024 End: 06-08-[address] Ashkan Tolentino MD -Pulmonary Services/Neurology Work Phone: Start: 06-08-2024 End: 06-08-2024 [facility] Start: 05-11-2024 End: 05-11-[address] Ashkan Tolentino MD -[facility] Work Phone: Start: 05-11-2024 End: 05-11-2024 ambulatory Angus Dunnder [employer] Work Phone: [facility] Work Phone: Start: 05-11-2024 End: 05-11-2024 Discharged Recurring Zebulun Beam [employer] WORKER-C -Physical Therapy Work Phone: Start: 05-11-2024 Registered Recurring Zebulun Beam [employer] WORKER -C -Physical Therapy Work Phone: Start: 05-11-2024 End: 05-11-2024 ambulatory Ashkan [facility] Facility:[facility] Start: 04-30-2024 End: 04-30-2024 ambulatory Angus Batista [employer] Work Phone: [facility] Work Phone: Start: 04-30-2024 End: 04-30-2024 Patient encounter procedure Alem Gross CNM -Outpatient Breast Imaging Work Phone: Start: 04-30-2024 End: 04-30-2024 ambulatory Angus Batista [facility] Facility:[facility] Start: 04-09-2024 End: 04-09-2024 Patient encounter procedure Alem Gross CNM -[facility] Work Phone: Start: 04-09-2024 End: 04-09-2024 ambulatory Angus Batista [facility] Facility:[facility] Start: 03-29-2024 End: 03-29-2024 Emergency department patient visit Dr. Richi Saucedo DO -Emergency Department Work Phone: Start: 02-10-2024 End: 02-10-[address] Ashkan Tolentino MD -[facility] Work Phone: Start: 02-10-2024 End: 02-10-2024 ambulatory Angus Batista [facility] Facility:[facility] Start: 12-30-2023 End: 12-30-2023 ambulatory Angus Batista [facility] Facility:[facility] Start: 11-06-2023 End: 11-06-2023 ambulatory ASHKAN TOLENTINO Facility:[facility] Start: 11-06-2023 End: 11-06-2023 Subsequent hospital visit by physician [facility] [address] Radiology Start: 09-10-2023 Telephone encounter Osbaldo Ch [facility] Radiology Comment on above: Appointment Start: 06-19-2023 End: 06-19-2023 ambulatory [facility] Work Phone: [facility] Work Phone: Start: 06-19-2023 End: 06-19-2023 Patient encounter procedure [facility] Work Phone: [facility]-Laboratory Work Phone: Start: 06-19-2023 End: 06-19-2023 Patient encounter procedure [facility] Work Phone: [facility] Work Phone: Start: 06-16-2023 End: 06-16-2023 Patient encounter procedure [facility] Work Phone: [facility] Work Phone: Start: 06-11-2023 Non-patient / Non-visit [facility] Work Phone: [facility] Start: 06-11-2023 End: 06-11-2023 Admission to same day surgery center [facility] Work Phone: [facility] Start: 06-11-2023 End: 06-11-2023 ambulatory [facility] Work Phone: [facility] Work Phone: Start: 06-06-2023 End: 06-06-2023 Patient encounter procedure [facility] Work Phone: [facility] Work Phone: Start: 05-27-2023 End: 05-27-2023 Patient encounter procedure [facility] Work Phone: [facility] Work Phone: Start: 05-05-2023 End: 05-05-2023 Emergency department patient visit [facility] Work Phone: [facility]-Emergency Department Work Phone: Start: 03-27-2023 End: 03-27-2023 Patient encounter procedure [facility] Work Phone: [facility] Work Phone: Start: 02-27-2023 End: 02-27-[address] Grisel Solares Work Phone: [facility] Work Phone: Start: 02-27-2023 End: 02-27-[address] Grisel Solares Work Phone: [facility]-Outpatient Breast Imaging Work Phone: Start: 02-25-2023 End: 02-25-[address] Grisel Solares Work Phone: [facility] Work Phone: Start: 02-25-2023 End: 02-25-[address] Grisel Solares Work Phone: [facility]-Laboratory, [facility] Start: 02-24-2023 End: 02-24-[address] Grisel Solares Work Phone: [facility] Work Phone: Start: 02-18-2023 End: 02-18-[address] Grisel Solares Work Phone: [facility] Work Phone: Start: 02-18-2023 End: 02-18-[address] [facility] Start: 02-04-2023 End: 02-04-[address] Grisel Solares Work Phone: [facility] Work Phone: Start: 12-31-2022 End: 12-31-[address] Grisel Solares Work Phone: [facility] Work Phone: Start: 12-20-2022 End: 12-20-[address] Grisel Solares Work Phone: [facility] Work Phone: Start: 12-18-2022 Non-patient / Non-visit Dr. Florin Solares Work Phone: [facility] Start: 12-18-2022 End: 12-18-2022 Admission to same day surgery center Dr. Grisel Solares Work Phone: [facility] Start: 12-18-2022 End: 12-18-[address] Grisel Solares Work Phone: [facility] Work Phone: Start: 12-06-2022 End: 12-06-[address] Grisel Solares Work Phone: [facility] Work Phone: Start: 11-25-2022 End: 11-25-[address] Grisel Solares Work Phone: [facility] Work Phone: Start: 11-25-2022 End: 11-25-[address] Grisel Solares Work Phone: [facility] Work Phone: Start: 11-14-2022 End: 11-14-[address] Grisel Solares [facility] Start: 11-13-2022 End: 11-13-[address] Grisel Solares [facility] Work Phone: Start: 11-12-2022 End: 11-12-[address] Grisel Solares Work Phone: [facility] Work Phone: Start: 11-12-2022 End: 11-12-[address] Grisel Solares [facility] Work Phone: Start: 11-08-2022 End: 11-08-[address] Grisel Solares Work Phone: [facility] Work Phone: Start: 11-08-2022 End: 11-08-[address] Grisel Solares [facility] Start: 11-07-2022 End: 11-07-[address] Grisel Solares Work Phone: [facility]Laboratory Work Phone: Start: 10-29-[address] Ngoc Solares Work Phone: [facility] Start: 09-29-2022 End: 09-29-2022 Emergency department patient visit Dr. Grisel Solares Work Phone: [facility]Emergency Department Work Phone: Start: 08-07-2022 End: 08-07-[address] Grisel Solares Work Phone: [facility] Work Phone: Start: 08-07-2022 End: 08-07-[address] Grisel Solares Work Phone: [facility] Start: 06-12-2022 End: 06-12-[address] Grisel Solares Work Phone: [facility] Work Phone: Start: 06-12-2022 End: 06-12-[address] Grisel Solares Work Phone: [facility]-Outpatient Breast [facility] Start: 06-07-2022 End: 06-08-2022 Emergency department patient visit Dr. Grisel Solares Work Phone: [facility]-Emergency Department Start: 05-31-2022 End: 05-31-[address] Grisel Solares Work Phone: [facility] Start: 04-09-2022 End: 04-09-[address] Grisel Solares Work Phone: [facility] Start: 03-28-2022 End: 03-28-[address] Grisel Solares Work Phone: [facility] Neu[facility] Start: 03-12-2022 End: 03-12-[address] Grisel Solares Work Phone: [facility] Start: 03-07-2022 End: 03-07-[address] Grisel Solares Work Phone: [facility] Start: 02-27-2022 End: 02-27-[address] Grisel Solares Work Phone: [facility] Work Phone: Start: 02-27-2022 End: 02-27-[address] Grisel Solares Work Phone: [facility] Start: 02-22-2022 End: 02-22-[address] Grisel Solares Work Phone: [facility] Work Phone: Start: 02-22-2022 End: 02-22-[address] Grisel Loja Phone: [facility]-Pulmonary Services/Neurology Start: 02-13-2022 End: 02-13-2022 Emergency department patient visit Dr. Grisel Solares Work Phone: [facility]-Emergency Department Start: 02-13-2022 End: 02-13-[address] Grisel Solares Work Phone: [facility] Start: 11-16-2021 End: 11-16-2021 Encounter for general adult medical examination without abnormal findings Dr. Grisel Solares Work Phone: [facility] Start: 11-16-2021 End: 11-16-[address] Grisel Solares Work Phone: [facility] Start: 10-20-[address] Ngoc Solares [facility] Procedures Date Procedure Procedure Detail Performing Clinician Start: 11-29-2024 Follicle stimulating hormone measurement Angus Batista [employer] Work Phone: Comment on above: FEMALE:Follicular: 1 .4 - 18.1 mIU/mLMidcycle: 3.4 - 33.4 mIU/mLLuteal: 1.5 - 9.1 mIU/mLPost Menopause: 23.0 - 116.3 mIU/mLMALE: 1.4 - 18.1 mIU/mL Start: 10-21-2024 Serum inorganic phos phate measurement Angus Batista [employer] Work Phone: Start: 09-07-2024 Estimated creatinine clearance Angus Batista [employer] Work Phone: Start: 09-07-2024 Plain chest X-ray Angus Batista [employer] Work Phone: Start: 07-02-2024 Vitamin D, 25-hydrox y measurement Angus Batista [employer] Work Phone: Comment on above: Vitamin D StatusDefi ciency: <20 ng/mL (50nmol/L)Insufficiency: 20-30 ng/mL (50-75 nmol/L)Sufficiency: 30-100 ng/mL (75-250 nmol/L)Toxicity: >100 ng/mL (>250 nmol/L) Start: 06-18-2024 MRI of joint of lowe r extremity Angus Batista [employer] Work Phone: Start: 05-11-2024 Plain x-ray of pelvi s and lower extremity Angus Batista [employer] Work Phone: Start: 05-11-2024 X-ray of lumbar spin e, two or three views Angus Batista [employer] Work Phone: Start: 04-30-2024 Bilateral mammography M bryon Batista [employer] Work Phone: Start: 04-30-2024 Ultrasonography of breast Angus Batista [employer] Work Phone: Start: 06-11-2023 Arthroscopy of ankle [facility] Work Phone: Start: 05-05-2023 CT of head without contrast [facility] Work Phone: Start: 02-27-2023 Bilateral mammography D rChacho Solares Work Phone: Start: 02-27-[address] Grisel Solares Work Phone: Start: 12-18-[address] Chacho Solares Work Phone: Start: 11-14-2022 Measurement of occul t blood in stool specimen using immunoassay Dr. Grisel Solares Work Phone: Start: 11-13-2022 Measurement of occul t blood in stool specimen using immunoassay Dr. Grisel Solares Work Phone: Start: 11-12-2022 Measurement of occul t blood in stool specimen using immunoassay Dr. Grisel Solares Work Phone: Start: 06-12-2022 Screening mammography Rhett Solares Work Phone: Urine culture Dr. Grisel Solares Work Phone: Urine culture Dr. Grisel Solares Work Phone: Urine culture Dr. Grisel Solares Work Phone: Plan of Treatment Date Care Activity Detail Author Start: 11-26-2027 Urine microalbumin profile DTaP,Tdap,Td Vaccine (2 - Td or Tdap) [facility] Start: 12-03-2024 Pelvic echography Pelvic w/ Transvag [facility] Start: 12-03-2024 End: 12-03-2024 Patient encounter procedure [facility] -Ultrasound [facility] Work Phone: Start: 09-07-2024 [facility] Start: 09-07-2024 [facility] Start: 09-07-2024 [facility] Start: 09-07-2024 [facility] Start: 06-08-2024 [facility] Start: 05-11-2024 Patient referral [facility] Work Phone: Start: 05-11-2024 Plain x-ray of pelvi s and lower extremity HIP, UNI W/ Pelvis 2-3 Views [facility] Start: 05-11-2024 X-ray of lumbar spin e, two or three views Lumbar Spine 2 or 3 Views [facility] Start: 05-11-2024 XR Lumbar spine 2 or 3 Views [facility] Start: 05-11-2024 XR Pelvis and Hip Views [facility] Start: 03-29-2024 [facility] Start: 10-19-2023 Influenza vaccination Influenza Vacc ine (#1) [facility] Start: 10-08-2023 End: 10-08-2023 Patient encounter procedure 10/08/2023 3:00 PM EDT Appointment Radiology [address] [place] [address] PLEASE HAVE PT SIGN AUTH OF RELEASE FORM. US WRIST LT; VOLAR+CARPAL TUNNEL-EVAL FOR CTS+SFT LUMP, S/P SURGERY. OUTSIDE ORDER SCANNED INTO CHART/BUILT IN [employer] Radiology Comment on above: PLEASE HAVE PT SIGN AUTH OF RELEASE FORM. US WRIST LT; VOLAR+CARPAL TUNNEL-EVAL FOR CTS+SFT LUMP, S/P SURGERY. OUTSIDE ORDER SCANNED INTO CHART/BUILT IN [employer] Start: 06-11-2023 Anes nerve muscle td n fascia&bursa forearm wrist ANESTH LOWER ARM SURGERY [facility] Start: 06-11-2023 Neuroplasty &/transp os median nrv carpal tunne CARPAL TUNNEL SURGERY [facility] Start: 06-11-2023 Elevation of affecte d extremity [facility] Start: 06-11-2023 Application of ice collar, cap or bag [facility] Start: 06-11-2023 Assessment of risk o f venous thromboembolism [facility] Start: 06-11-2023 Catheterization of vein [facility] Start: 06-11-2023 Deep breathing and coughing exercises [facility] Start: 06-11-2023 Following clinical pathway protocol [facility] Start: 06-11-2023 Incentive spirometry [facility] Start: 06-11-2023 Introduction of urin shivani catheter [facility] Start: 06-11-2023 Patient discharge [facility] Start: 06-11-2023 Patient education [facility] Start: 06-11-2023 Taking patient vital signs [facility] Start: 06-11-2023 Vital signs measurements [facility] Start: 06-11-2023 End: 06-11-2023 [facility] Start: 06-11-2023 Medication education [facility] Start: 05-05-2023 End: 05-05-2023 [facility] Start: 12-18-2022 Anes arthrs/endscpy dstl radius ulna/wrist/hand ANESTH LOWER ARM SURGERY [facility] Start: 12-18-2022 Ndsc wrst surg w/rls transvrs carpl ligm WRIST ENDOSCOPY/SURGERY [facility] Start: 12-18-2022 Notification of physician [facility] Start: 12-18-2022 End: 12-18-2022 Patient discharge [facility] Start: 12-18-2022 Application of ice collar, cap or bag [facility] Start: 12-18-2022 Assessment of risk o f venous thromboembolism [facility] Start: 12-18-2022 Catheterization of vein [facility] Start: 12-18-2022 Deep breathing and coughing exercises [facility] Start: 12-18-2022 Following clinical pathway protocol [facility] Start: 12-18-2022 Incentive spirometry [facility] Start: 12-18-2022 Introduction of urin shivani catheter [facility] Start: 12-18-2022 Patient education [facility] Start: 12-18-2022 Taking patient vital signs [facility] Start: 12-18-2022 Vital signs measurements [facility] Start: 12-18-2022 End: 12-18-2022 [facility] Start: 12-18-2022 Medication education [facility] Start: 10-18-2022 Covid-19 Vaccine ( season) Covid-19 Vaccine ( season) [facility] Start: 02-27-2022 Patient referral [facility] Work Phone: Start: 04-11-2020 Screening for malign ant neoplasm of cervix Cervical Cancer Screening [facility] Start: 04-11-2018 Screening for malign ant neoplasm of cervix Cervical Cancer Screening [facility] Start: 2002 Anxiety Screening Anxiety Screening [facility] Start: 2002 Depression Screening Depression Scre ening [facility] Start: 2002 Hepatitis C screening [facility] Breast - bilatera l Screening [facility] MG Breast - bilatera l Screening [facility] Patient Education [facility] Work Phone: Patient referral [facility] Work Phone: Troponin T.cardiac [Mass/volume] in Serum or Plasma by High sensitivity method [facility] US Breast limited [facility] Immunizations Immunization Date Immunization Notes Care Provider Fa [facility] 11-18-2024 influenza, seasonal, injectable, preservative free Angus Batista [employer] WORKER-C Work Phone: [facility] 11-24-2023 influenza, seasonal, injectable, preservative free Angus Batista [employer] WORKER[employer] Work Phone: [facility] 12-05-2022 Covid (Spikevax) Dr. Laura Solares Work Phone: [facility] 12-05-2022 influenza, injectabl e, quadrivalent, preservative free Dr. Grisel Solares Work Phone: [facility] 12-05-2022 influenza virus vaccine, unspecified formulation [address] 12-05-2021 influenza, injectabl e, quadrivalent, preservative free Dr. Grisel Solares Work Phone: [facility] 12-05-2021 influenza, seasonal, injectable Dr. Grisel Solares Work Phone: [facility] 11-09-2021 Covid Pfizer Bivalen t Booster Dr. Grisel Solares Work Phone: [facility] 12-26-2020 Covid (Pfizer) Dr. Grisel Solares Work Phone: [facility] 11-22-2020 influenza, injectabl e, quadrivalent, preservative free Dr. Grisel Solares Work Phone: [facility] 11-22-2020 influenza, seasonal, injectable Dr. Grisel Solares Work Phone: [facility] 06-22-2020 Covid (Pfizer) Dr. Grisel Solares Work Phone: [facility] 06-01-2020 Covid (Pfizer) Dr. Grisel Solares Work Phone: [facility] 11-24-2019 influenza, injectabl e, quadrivalent, preservative free Dr. Grisel Solares Work Phone: [facility] 11-24-2019 influenza, seasonal, injectable Dr. Grisel Solares Work Phone: [facility] 12-08-2018 influenza, injectabl e, quadrivalent, preservative free Dr. Grisel Solares Work Phone: [facility] 12-08-2018 influenza, seasonal, injectable Dr. Grisel Solares Work Phone: [facility] 12-08-2018 influenza virus vaccine, unspecified formulation Osbaldo Ch [facility] 10-05-2018 hepatitis B vaccine, adult dosage Dr. Grisel Solares Work Phone: [facility] 05-04-2018 hepatitis B vaccine, adult dosage Dr. Grisel Solares Work Phone: [facility] 05-04-2018 measles, mumps and rubella virus vaccine Dr. Grisel Solares Work Phone: [facility] 03-30-2018 measles, mumps and rubella virus vaccine Dr. Grisel Solares Work Phone: [facility] 03-16-2018 hepatitis B vaccine, adult dosage Dr. Grisel Solares Work Phone: [facility] 01-23-2018 tuberculin skin test ; purified protein derivative solution, intradermal Us 1 [facility] 01-16-2018 tuberculin skin test ; purified protein derivative solution, intradermal Us 1 [facility] 01-15-2018 influenza, injectabl e, quadrivalent, contains preservative Osbaldo Oglala [facility] 11-25-2017 tetanus toxoid, redu bryan diphtheria toxoid, and acellular pertussis vaccine, adsorbed Osbaldo Oglala [facility] 12-02-2009 influenza virus vaccine, unspecified formulation Osbaldo Evonne [facility] 11-17-2008 influenza virus vaccine, unspecified formulation Osbaldo Evonne [facility] Work Phone: 12-25-2006 influenza virus vaccine, unspecified formulation Osbaldo Evonne [facility] Work Phone: 12-27-2004 influenza virus vaccine, unspecified formulation Osbaldo Evonne [facility] Work Phone: Payers Date Payer Category Payer Self-pay [id number] 2023 Private Health Insurance [facility] MARYVALEELEUTERIO Majano [facility] [id number] 2023-Present [phone] [address] [place] [id number] PPO [id number] 2023 Unknown [id number] 2019 Unknown [id number] Private Health Insurance [id number] Private Health Insurance [facility] [id number] Unknown [id number] Unknown [facility] [id number] Unknown [id number] Unknown [id number] 2.840.1.861228.3.579.2. 462 Unknown [id number] 2.840.1.005834.3.579.2. 462 Unknown [id number] 2.840.1.677004.3.579.2. 462 Unknown [id number] 2.840.1.344955.3.579.2. 462 Unknown [id number] 2.840.1.561466.3.579.2. 462 Unknown [id number] 2.840.1.097479.3.579.2. 462 Unknown [id number] 2.840.1.178597.3.579.2. 462 Unknown [id number] 2.840.1.326854.3.579.2. 462 Unknown [id number] 2.840.1.359617.3.579.2. 462 Unknown [id number] 2.840.1.435931.3.579.2. 462 Unknown [id number] 2.840.1.643818.3.579.2. 462 Unknown [id number] 2.16840.1.349456.3.579.2. 462 Unknown [id number] 2.840.1.304656.3.579.2. 462 Unknown [id number] 2.16.840.1.620111.3.579.2. 462 Unknown [id number] 2.16.840.1.054974.3.579.2. 462 Unknown [id number] 2.16.840.1.194820.3.579.2. 462 Unknown [id number] 2.16.840.1.850227.3.579.2. 462 Unknown [id number] 2.16.840.1.956239.3.579.2. 462 Unknown [id number] 2.16.840.1.796542.3.579.2. 462 Unknown [id number] 2.16.840.1.422202.3.579.2. 462 Unknown [id number] 2.16.840.1.490381.3.579.2. 462 Unknown [id number] 2.16840.1.496154.3.579.2. 462 Social History Date Type Detail Facility Start: 02-13-2022 End: 06-05-2023 Tobacco smoking status [facility] Unknown if ever smoked [facility] Start: 04-15-2019 Alone [facility] Start: 1985 Sex Assigned At Female W [facility] Start: 03-18-2011 End: 09-07-2024 Tobacco smoking status VTIS Ex-smoker [facility] Start: 05-18-1998 End: 05-18-2001 History of tobacco use Current smoker [facility] Start: 05-18-1998 End: 05-18-2001 History of tobacco use Cigarette Smoker [facility] Start: 03-18-2011 Tobacco use and exposure Smokeless tobacco non-user [facility] Start: 07-08-2018 Alcohol intake Current drinke r of alcohol (finding) [facility] Start: 07-08-2018 End: 01-25-2020 History of Social function [facility] Start: 07-08-2018 End: 01-25-2020 Tobacco use panel [facility] Adult Depression Screening Assessment 0 [facility] Start: 08-21-2016 Gender identity Identifies as female gender (finding) [facility] Start: 08-21-2016 Sexual orientation Heterosexual (thomas gudino) [facility] Start: 05-11-2024 End: 06-15-2024 Sex Female (finding) [facility] NEGATED: Highlighted row [facility] Work Phone: NEGATED: Highlighted row [facility] Medical Equipment Procedure Code Equipment Code Equipment Origin al Text Equipment Identifier Dates Robot-assisted total abdominal hysterectomy with bilateral salpingo-oophorectom y (BILL Plant polysaccharide haemostatic agent, bioabsorbable ([id number] FDA Start: 03-13-2021 Goals Date Patient Goal Desired Activity /State Mental Status Date Assessment Result Facility 09-07-2024 Cognitive function Level Of Cons ciousness Awake;Alert;Appropriate;Follow s Commands [facility] Work Phone: 06-11-2023 Cognitive function Level Of Cons ciousness Awake;Alert;Appropriate [facility] Work Phone: 06-11-2023 Cognitive function Voice/Name [facility] Work Phone: 05-05-2023 Cognitive function Level Of Cons ciousness Awake;Alert;Appropriate;Follow s Commands [facility] Work Phone: 12-18-2022 Cognitive function Voice/Name [facility] Work Phone: 02-13-2022 Cognitive function Level Of Cons ciousness Awake;Alert;Appropriate;Follow s Commands [facility] Work Phone: Clinical Notes 12-18-2022 to 11-29-2024 Note Date & Type Note Facility 11-29-2024 Progress note [facility] 11-29-2024 Progress note Note Date/Time November 29, 2024 3:03pm [facility] [address], [address] [place] [address] OFFICE VISIT Date of Service: 11/29/24 MR#: [id number] Acct: [id number] Name: ANA MARIA JOSEPH Rep #: [id number] : 1985 Provider: HANG Castaneda Age/Sex: 39/F Location: [facility] Status: Signed Intake Vital Signs 10/26/24 14:35 [...] Visit Reasons: 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 Is patient in pain?: No Allergies Penicillins Adverse Reaction (Severe, Verified 11/29/24 14:49) hives cefaclor (From Ceclor) Adverse Reaction (Intermediate, Verified 11/29/24 14:49) Hives doxycycline Adverse Reaction (Intermediate, Verified 11/29/24 14:49) Diarrhea Medications ?Medication ?Instructions ?Recorded ?Confirmed ?Type cetirizine 10 mg capsule (Zyrtec) 10 mg PO DAILY 02/1411/29/24 History ibuprofen 800 mg tablet 800 mg PO Q8H PRN pain 7 day s #30 03/13/21 11/29/24 Rx tabs dicyclomine 20 mg tablet 20 mg PO TID PRN abdominal p ain 11/16/21 11/29/24 Rx #180 tabs pantoprazole 40 mg tablet,delayed 40 mg PO DAILY reflu x #90 tabs 02/27/22 11/29/24 Rx release (Protonix) buspirone 30 mg tablet 30 mg PO BID 90 days #180 ta bs 05/28/22 11/29/24 Rx cariprazine 1.5 mg capsule 3 mg PO DAILY 11/25/2211/17 History (Vraylar) cyanocobalamin (vitamin B-12) 100 100 mcg PO DAILY 11/29/24 History mcg tablet (Vitamin B-12) propranolol 20 mg tablet 20 mg PO DAILY BP 06/05/23 1 History empty vial 05/11/24 11/29/24 History eletriptan 20 mg tablet (Relpax) See Rx Instructions . Route 10/26/24 11/29/24 Rx .COMPLEX #9 tabs erenumab-aooe 140 mg/mL 140 mg subcut QMONTH migrain es #1 10/26/24 11/29/24 Rx subcutaneous auto-injector mL (Aimovig Autoinjector) ondansetron HCl 4 mg tablet 4 mg PO TID PRN nausea and 10/26/24 11/29/24 Rx vomiting #90 tabs tizanidine 4 mg tablet (Zanaflex) 8 mg (2 x 4 mg) PO Q HS #60 tabs 10/26/24 11/29/24 Rx ubrogepant 100 mg tablet 100 mg PO .COMPLEX migraine 10/26/24 11/29/24 Rx headache #10 tabs hydroxyzine pamoate 25 mg capsule 25 mg PO TID 5 11/29/24 History (Vistaril) Is last menstrual period known: No Post menopausal: No Patient : No : No Control Method: Hysterectomy PFSH Medical History Left hip pain Cardiology [...] 3 current occupational status: employed current occupation: [employer] history of recent travel: No sexually active: Yes Smoking Status: Former smoker alcohol intake: never substance use type: does not use caffeine: No what type of physical activity do you participate in: running frequency: 3-4 times per week seatbelt use: always do you feel safe at home: Yes additional social history: - Donald HPI 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) Details: ANA MARIA JOSEPH is a 39 year old who presents for several weeks noting more hot flashes, not every day. Also more anxious, sleep disturbance. Also noting off and on left lower quadrant pain. History of hysterectomy. History 4 Elective abortions Hx Para 3 Spontaneous abortions 1 Hx # Term Pregnancies Ectopic pregnancies Hx # Pregnancies Multiple births # of living children 3 Past Pregnancies Del. Date Name GA/Weeks Outcome Route Bth Weight Gen Labor Lgth Anesthesia Del Locatn Provider FOB Unknown madilynn 2001 Unknown alicia 2005 Unknown olivya 2007 ROS Const Constitutional: Reports system reviewed and no additional complaints, except as documented Eyes Eyes: Reports system reviewed and no additional complaints, except as documented GI GI: Denies abdominal pain or change in bowel habits : Reports as per HPI Exam Const General: cooperative and no acute distress Orientation: oriented x3 HENMT Head: normal to inspection and normocephalic Eyes General: appearance normal, both eyes and all related structures Neck Neck: normal visual inspection Resp Effort & Inspection: normal respiratory effort Neuro Cognition: normal cognition Speech: speech normal Psych Appearance: grossly normal Mood: congruent mood Affect: normal affect Speech and Movement: speech and movement normal Attitude: cooperative Judgment: judgment good Coding Level of Care Code Off vis,est,level 3 Diagnoses Hot flashes R23.2 Pelvic pain R10.20 Assessment and Plan Assessment and Plan (1) Hot flashes: Status: Acute (2) Pelvic pain: Status: Acute Comment: LLQ Orders: Orders Thyroid Stim Hormone (TSH) Today R23.2 - [place], Z13.29 - Encounter for screening for other suspected endocrine disorder Follicle Stimulating Hormone Today R23.2 - [place] Estradiol Today R23.2 - [place] Antimullerian Hormone, Serum Today R23.2 - [place] Pelvic w/ Transvaginal Today R10.20 - Pelvic and perineal pain unspecified side Plan Ultrasound to check for ovarian cyst See labs to evaluate for menopause, thyroid. If normal, will need to see PCP Plan Details Goals & Barriers: Goals Decrease pain Decrease spasm Improve workability 11/29/24 1503 <Electronically signed by Lindy gonzalez NP [employer] WORKER-C> Date _ Lindy Castaneda NP [employer] WORKER-C Cosigner Signature: Date (if applicable) CC: ~ [facility] Work Phone: 1(488) 232-471609-09-2025 Evaluation note* Diagnosis Onset Date Resolution Status Admit Date Cervicalgia chronic October 2:33pm Migraine chronic October 26, 2024 2:33pm Hot flashes acute November 29, 2024 2:35pm Pelvic pain acute November 29, 2024 2:35pm [facility] Work Phone: 1(984) 986-231607-22-2025 Discharge summary [facility] Medical Records Department [address] [place] [address] Emergency Department Summary 09/07/24 MR#: [id number] Acct: [id number] Name: ANA MARIA JOSEPH ANN Rep #:[id number] : 1985 39 From: Sergo Olsen MD PCP: AHNG Jameson Status:REG ER Location: ED HPI History [...] her left upper extremity. [facility] She is also been seen by Lilian Bryant at the [facility]. Her most recent visit was a couple of years ago. She had an echo which revealed no structural abnormality. She had a Holter monitor which revealed no significant dysrhythmiaor bradycardia. She presents today because of the chest pressure that has been unrelenting. Nothing makes it better or worse. It isnot positional. It is not related to food. She denies history of VTE. She has no risk factors for VTE. She is not on hormonal therapy. She denies leg pain, swelling discoloration. Patient does have history of IBS. She also has history of pain in multiple areas. GERD, segmental and somatic dysfunction of the pelvic region, thoracic region, lumbar region and cervical region. Shealso has a history of generalized anxiety disorder. [...] and Family History; Negative for Marfan's Syndrome [facility] Medical History Left hip pain Cardiology follow-up [...] 1.5 mg capsule 3 mg PO DAILY 11/25/2211/10 History (Vraylar) cyanocobalamin (vitamin B-12) 100 100 [...] Severe hives Verified 09/07/24 11:16 cefaclor (From Ceclor) AdvReac Intermediate Hives Verified 09/07/24 11:16 doxycycline [...] 3 current occupational status: employed current occupation: [employer] history of recent travel: No sexually [...] discoloration, ligament distention, palpable cords soundson the distributiondeep venous system. Neuro oriented x3 and CN's II-XII intact bilaterally Sensorium / Orientation: awake and alert Psych mental status grossly normal Skin no rashes or lesions noted and no wounds Heart Score History: Slightly/Non-Suspicious ECG: Normal Age: Risk Factors: 1 or 2 Risk Factors Troponin: Score: 1 MDM MDM MDM Narrative Medical [...] % (Auto) 68.7 Lymph % (Auto) 23.5 Garvin % (Auto) 6.2 Eos % (Auto) 0.9 [...] 09/07/24 11:38 IMPRESSION: Negative Chest. Reading Location: [facility] Differential Diagnosis Chest pain/SOB: pulmonary embolism Reason(s) PE less likely: Positive for PERC negative Management Discussion w/another healthcare provider: Animal Physiologist Treatment and Re-Evaluation :: Case was Dr. [...] Triage Chief Complaint: Chest Pain ED Provider: Olsen,Sergo Dx/Rx/DC Orders Clinical Impression: Chest pressure, IBS (irritable bowel syndrome), Bradycardia, Vasovagal near syncope, Elevated bloodpressure reading with diagnosis of hypertension Instructions: ED [...] Care Provider: Angus Batista Referrals: Angus Batista, [employer]CAST WORKER-C [Primary Care Provider] - 1 Week Activity Restrictions/Additional Instructions: Recommend gluten-free diet to see if this helps you with your bradycardia and chest discomfort Print Language: Maldivian Disposition Disposition: Home, Self Care What to do if you have Problems For any increased pain, shortness of breath, bleeding, nausea or vomiting, chestpain, or any unexpected problems, contact your Primary Care Provider. Call [facility] ([phone]) or report tothe closest Emergency Room. Call 911 if necessary. 09/07/24 1558 Cosigner Signature (if applicable): CC: HANG Batista ~ Signed ADDENDUM by Dr. Sergo Olsen MD on 09/07/24 at 1604 EKG sinus bradycardia rate 57. Other than the sinus bradycardia the EKG is normal. 09/07/24 1604 Cosigner Signature (if applicable): cc: HANG Batista ~* Signed [facility]07-22-2025 Discharge summary Author Sergo Olsen [facility] Note Date/Time September 07, 2024 4:04 pm [facility] Medical Records Department [address] [place] [address] Emergency Department Summary 09/07/24 MR#: [id number] Acct: [id number] Name: ANA MARIA JOSEPH ANN Rep #:[id number] : 1985 39 From: Sergo Olsen MD [...] and [facility] History; [facility]'s [facility] History Left hip pain Cardiology follow-up [...] Severe hives Verified 09/07/24 11:16 [facility] AdvReac Intermediate Hives Verified 09/07/24 11:16 doxycycline [...] 3 current occupational status: employed current occupation: [employer] history of recent travel: No sexually active: [...] % (Auto) 68.7 Lymph % (Auto) 23.5 Garvin % (Auto) 6.2 Eos % (Auto) 0.9 [...] 09/07/24 11:38 IMPRESSION: Negative Chest. Reading Location: [facility] Differential Diagnosis Chest pain/SOB: pulmonary embolism Reason(s) PE less likely: Positive for PERC negative Management Discussion w/another healthcare provider: Animal Physiologist Treatment and Re-Evaluation :: Case was Dr. [...] Care Provider: Angus Batista Referrals: Angus Batista, PRECAST WORKER-C [Primary Care Provider] - 1 Week Activity Restrictions/Additional Instructions: Recommend gluten-free diet to see if this helps you with your bradycardia and chest discomfort Print Language: Maldivian Disposition Disposition: Home, Self Care What to do if you have Problems For any increased pain, shortness of breath, bleeding, nausea or vomiting, chestpain, or any unexpected problems, contact your Primary Care Provider. Call [facility] ([phone]) or report to the closest Emergency Room. [...] Olsen MD> Cosigner Signature (if applicable): cc: PRECAST WORKER-Duke Batista ~* Signed [facility] Work Phone: 1(989) 241-211307-22-2025 Radiology Diagnostic study note [facility] Imaging Services [address] [place] [address] Chest 1 View (Portable) MR#: [id number] Acct: [id number] Name: ANA MARIA JOSEPH ANN Rep #: [id number] : 1985 F 39 From: Megan Gambino MD PCP: CARLO JamesonC Status: REG ER Study:Chest 1 View (Portable) Date of Exam: 09/07/24 Exam# [id number] Ordering Dr: Eyad Olsen MD PROCEDURE: CHEST 1 VIEW (PORTABLE) 09/07/2024 REASON FOR EXAM: CHEST PAIN TECHNIQUE: Frontal view of the chest. COMPARISON: Chest radiograph 11/18/2017. FINDINGS: Hardware: None. Heart: The heart size is normal. Lungs: No focal consolidation, pleural effusion or pneumothorax. Bones: The bones are unremarkable. RAD/Chest 1 View (Portable) IMPRESSION: Negative Chest. Reading Location: [facility] CC: HANG Batista; Dr. Sergo Olsen MD ~ Manager Book: Signed [facility]04-28-2025 Evaluation note* Diagnosis Onset Date Resolution Status Admit Date Encounter for routine gynecological examination noneactive June 14, 2024 12:57pm [facility] Work Phone: 1(503) 965-951504-22-2025 Procedure note [facility] Pulmonary Services/Neurology [address] [place] [address] MR#: [id number] Acct: [id number] Name: ANA MARIA JOSEPH ANN Rep #:[id number] : 1985 38 From: Ramona Martin MD Referring Dr: Ashkan Tolentino MD Sta tus: REG CLI Location: PSN Date: 06/08/24 Sex: F C NCS and/or EMG Patient Report Ordering Doctor: Ashkan Tolentino DATE OF SERVICE: 06/08/24 Clinical Summary: 38 [...] Multi Select Codes Neurology Neurology Interp Codes: 08810-09 Musc test done w/n test comp (interp) (1) and 98756-99 Nrv cndj tst 5-6 studies (interp) 06/08/24 1127 MD> Date _ Ramona Martin MD CC: PRECAST WORKER-C Angus Batista; Dr. Ramona Martin MD; Dr. Ashkan Tolentino MD ~ Date Dictated: 06/08/24949 Date Transcribed: 06/08/24949 Manager Book: Signed [facility]03-26-2025 Radiology Diagnostic study note [facility] Imaging Services [address] [place] [id number] HIP, UNI W/ Pelvis 2-3 Views MR#: [id number] Acct: [id number] Name: ANA MARIA JOSEPH ANN Rep #: [id number] : 1985 F 38 From: Otoniel Mccoy MD PCP: HANG Jameson Status: REG CLI Study:HIP, UNI W/ Pelvis 2-3 Views Date of Ex am: 05/11/24 Exam# [id number] Ordering Dr: Ashkan Tolentino MD PROCEDURE: HIP, UNI W/ PELVIS 2-3 [...] pubis may be degenerative, nonspecific. Reading Location: [facility] CC: PRECAST WORKER-C Angus Batista; Dr. Ashkan Tolentino MD ~ Manager Book: Signed [facility]03-25-2025 Discharge summary Author Paula Jang [facility] Note Date/Time May 11, 2024 7:0 0pm [facility] Physical Therapy [facility] [address] [place] [address] [address] [place] [address] / REHABILITATION SERVICES DISCHARGE SUMMARY MR#: [id number] Acct: [id number] Name: ANA MARIA JOSEPH ANN Rep #: [id number] : 1985 38 From: Paula Hwang Referring DrChacho: Ledy Foley Status: REG RCR Insurance: [facility] [employer] [employer]F [employer]URANCE Discharge Summary D/C summary: [...] please feel free to call me at [phone]. Thank you for the referral of thispatient. Sincerely, Paula Jang, KHUSHI Balance/Gait/Functional tests Balance/Special Test Scores Lower Extremity Functional Score: 67 Improvement % Improvement: 0 <Electronically signed by Paula Jang MPT> 05/11/24 1203 CC: PRECAST WORKERChrissy Batista; [facility] PRECAST WORKER-C Beam ~ Signed [facility] Work Phone: 1(143) 206-693903-25-2025 Radiology Diagnostic study note [facility] Imaging Services [address], [place] [address] Lumbar Spine 2 or 3 Views MR#: [id number] Acct: [id number] Name: ANA MARIA JOSEPH ANN Rep #: [id number] : 1985 F 38 From: Jose Hector DO PCP: HANG Jameson Status: REG CLI Study:Lumbar Spine 2 or 3 Views Date of Exam: 05/11/24 Exam# [id number] Ordering Dr: Ashkan Tolentino MD EXAM: Two views lumbosacral spine. CLINICAL [...] IMPRESSION: Unremarkable lumbar sacral spine. Reading Location: [id number] CC: HANG Batista; Dr. Ashkan Tolentino MD ~ Manager Book: Signed [facility]03-25-2025 Discharge summary [facility] [address] [place] [address] [address] [place] [address] / REHABILITATION SERVICES DISCHARGE SUMMARY MR#: [id number] Acct: [id number] Name: ANA MARIA JOSEPH Rep #: [id number] : 1985 38 From: Paula Hwang Referring Dr.: Ledy Foley Status: REG RCR Insurance: [facility] [employer]/[facility] SELF PAY INSURANCE Discharge Summary D/C summary: It has been my pleasure to treat ANA MARIAALEJO RICHTER OPAL referred by GEOVANNI Johnson, PRECAST WORKER-C, with the diagnosis of meralgia paresthetica L [...] please feel free to call me at [phone]. Thank you for the referral of thispatient. Sincerely, Paula Jang, KHUSHI Balance/Gait/Functional tests Balance/Special Test Scores Lower Extremity Functional Score: 67 Improvement % Improvement: 0 05/11/24 1203 CC: HAGN Batista; [facility] PRECAST WORKER-[place] Beam ~ Signed [facility]03-25-2025 Evaluation note* Diagnosis Onset Date Resolution Status Admit Date Meralgia paresthetica inactive Mar 2024 1:29pm Encounter for routine gynecological examination noneactive June 14, 2024 12:57pm [facility] Work Phone: 1(757) 949-164803-14-2025 Radiology Diagnostic study note [facility] Imaging Services [address] [place], [place] [address] Breast Limited Unilateral MR#: [id number] Acct: [id number] Name: ANA MARIA JOSEPH ANN Rep #: [id number] : 1985 F 38 From: Valeriano Kumari MD PCP: HANG Jameson Status: REG CLI Study:Breast Limited Unilateral Date of Exam: 04/30/24 Exam# [id number] Ordering Dr: Alem Gross CNM PROCEDURE: BREAST [...] NEGATIVE. RECOMMEND ANNUAL MAMMOGRAPHIC SCREENING. Reading Location: [place] [address] CC: DARIN Gross; HANG Batista ~ Manager Book: Signed [facility]02-21-2025 Evaluation note* Diagnosis Onset Date Resolution Status Admit Date Breast pain acute March 9:05am Meralgia paresthetica inactive [facility] 2024 1:29pm Encounter for routine gynecological examination noneactive June 14, 2024 12:57pm [facility] Work Phone: 1(465) 209-176012-24-2024 Evaluation note* Diagnosis Onset Date Resolution Status Admit Date Bilateral carpal tunnel syndrome acute February 09, 2 024 11:05am Breast pain acute March 9:05am Meralgia paresthetica inactive [facility] 2024 1:29pm [facility] Work Phone: 1(941) 457-326807-29-2024 Telephone encounter Note* Telephone Encounter - Chrissie Payne - 09/15/2023 11:02 AM EDT Patient has been scheduled for their MSK US exam on 10/08/23 : 3:00 PM at [facility]. [facility]07-29-2024 Miscellaneous Notes* Telephone Encounter - Chrissie Payne - 09/15/2023 11:02 AM EDT Patient has been scheduled for their MSK US exam on 10/08/23 : 3:00 PM at [place]. * Telephone Encounter - Chrissie Payne - [...] locations. Slot held: N/A [facility] Telephone encounter Note * Telephone Encounter - Chrissie Payne - 09/11/2023 1:34 PM EDT Called patient on September 11, 2023 at 1:34 PM to schedule their MSK US exam. No answer, line busy could not leave VM, 1st attempt. [facility]07-24-2024 Telephone encounter Note* Telephone Encounter - Osbaldo [...] of our three locations. Slot held: N/A [facility]04-24-2024 History and physical note Author Ashkan Tolentino [facility] June 11, 2023 7:16am Note Date/Time June 11, 2023 7:1 6am [facility] Medical Records Department [address] [place] [address] History & Physical Exam 06/11/2315 MR#: [id number] Acct: [id number] Name: ANA MARIA JOSEPH ANN Rep #:[id number] : 1985 37 From: Ashkan Tolentino MD PCP: [facility] atus:[facility] Location: [place] [address] HPI - General HPI Narrative ANA MARIA JOSEPH, is a 37 F who presents for left ECTR. ok to proceed. no changes to h and p. consent up to date. left wrist marked. rab, instructions and post opcare discussed. MR#: [id number] Acct: [id number] Name: ANA MARIA JOSEPH ANN Rep #: [id number] : 1985 Provider: Dr. Ashkan Tolentino MD Age/Sex: 37/F Location[place] [facility] Status: Signed with Addenda ADDENDUM by Dr. Ashkan Tolentino MD on 05/27/23 at 1148 Assessment and Plan Assessment and Plan (1) Carpal tunnel syndrome, right: Status: Acute Plan: REMOVE CPT for injection (2) Bilateral carpal tunnel syndrome: Status: Acute Plan Details Goals & Barriers: Goals Decrease pain Decrease spasm Improve workability 05/27/23 1148 <Electronically signed by Ashkan Tolentino MD> Date Ashkan Tolentino MD cc: ~* Signed Intake Vital Signs [...] mcg PO DAILY 12/06/22 [History Confirmed 05/27/23] PFSH Medical History Abnormal EKG Acid reflux [...] 3 current occupational status: employed current occupation: [employer] history of recent travel: No sexually active: [...] the decisions made by me, Dr. Ashkan Tolentino MD 05/27/23 1022. Part of today?s visit was documented by [...] upper extremity. Coding Level of Care Code Attention Jojo Diagnoses Carpal tunnel syndrome, right G56.01 Bilateral carpal tunnel syndrome G56.03 Comment 32213 and cpt inject carpal tunnel Assessment and [...] Decrease pain Decrease spasm Improve workability [facility] Medical History Abnormal EKG Alcohol use Bilateral [...] Severe hives Verified 06/11/23 06:56 cefaclor [From [facility]] AdvReac Intermediate Hives Verified 06/11/23 06:56 doxycycline [...] 3 current occupational status: employed current occupation: [employer] history of recent travel: No sexually active: [...] Negative 06/11/23 0716 <Electronically signed by Ashkan Tolentino MD> Cosigner Signature (if applicable): CC: Dr. Ashkan Tolentino MD; [facility]~ Signed [facility] Work Phone: 1(569) 689-380904-24-2024 Procedure [facility] 12-18-2022 History and physical note Author Ashkan Tolentino [facility] December 18, 2022 8:05am Note Date/Time December 18, 2022 8 :06am [facility] Medical Records Department [address] [place] [address] History & Physical Exam 12/18/22 0805 MR#: [id number] Acct: [id number] Name: ANA MARIA JOSEPH ANN Rep #:[id number] : 1985 37 From: Ashkan Tolentino MD PCP: [facility] St [facility]us[place] Location: [place] [address]- HPI - General HPI Narrative ANA MARIA JOSEPH, is a 37 F who presents for right endoscopic carpal tunnel release. no changes to h and p. Patient ok to proceed, questions, rab. Wrist marked. MR#: [id number] Acct: [id number] Name: ANA MARIA JOSEPH Rep #: [id number] : 1985 Provider: Dr. Ashkan Tolentino MD Age/Sex: 37/F Location: [facility] Status: Signed Intake Vital Signs 11/25/2310:30 Height [...] 3 current occupational status: employed current occupation: [employer] history of recent travel: No sexually active: Yes Smoking Status: Former smoker alcohol intake: never substance use type: does not use caffeine: No what type of physical activity do you participate in: running frequency: 3-4 times per week seatbelt use: always do you feel safe at home: Yes additional social history: - Doanld LONG right wrist Details: Parts of this documentation were recorded by a scribe, this documentation accurately reflects the service provided and the decisions made by me, Dr. Guillermo MD 12/06/22 0836. ANA MARIA JOSEPH is a 37 year [...] surgery,and signed the informed consent documentation. [facility] Medical History Abnormal EKG Acid reflux Alcohol [...] Severe hives Verified 12/06/22 09:10 cefaclor [From Ceclor] AdvReac Intermediate Hives Verified 12/06/22 09:10 doxycycline [...] 3 current occupational status: employed current occupation: [employer] history of recent travel: No sexually active: [...] 42.5 12/18/22 0805 <Electronically signed by Ashkan Tolentino MD> Cosigner Signature (if applicable): CC: Dr. Ashkan Tolentino MD; [facility]~ Signed [facility] Work Phone: 1(769) 980-238311-01-2023 Procedure [facility] Discharge summary Author Ashkan Tolentino [facility] December 18, 2022 9:08am Note Date/Time December 18, 2022 9 :08am [facility] Medical Records Department [address] [place] [address] Instructions for Home/Discharge Instructions 12/18/22 0907 MR#: [id number] Acct: [id number] Name: ANA MARIA JOSEPH ANN Rep #:[id number] : 1985 37 From: Ashkan Tolentino MD PCP: [facility] St [facility]us[facility] Discharge Instructions Diet Discharge Diet: No restrictions [...] Up Care Please Follow Up With: Ashkan Tolentino MD When: 2 days Test Results: Test results from this visit will be discussed in further detail at your follow- up appointment, if applicable. Discharge Plan Admission Attending Provider: Ashkan Tolentino [facility] Discharge Orders/Prescriptions Prescriptions: No Action dicyclomine 20 [...] 180 1RF Referrals / Follow Up: Ashkan Tolentino MD [Med Staff - Active Staff] - [facility],[place] [Primary Care Provider] - Disposition Disposition (needs filled in before D/C Order can be placed): Home, Self Care 12/18/22 0908<Electronically signed by Ashkan Tolentino MD>Ashkan Tolentino MD CC: [facility] ~ Signed [facility] Work Phone: Discharge summary Author Ashkan Tolentino [facility] June 11, 2023 8:07am Note Date/Time June 11, 2023 8:0 7am [facility] Medical Records Department [address] [place] [address] Instructions for Home/Discharge Instructions 06/11/23 0806 MR#: [id number] Acct: [id number] Name: ANA MARIA JOSEPH ANN Rep #:[id number] : 1985 37 From: Ashkan Tolentino MD PCP: [facility] St [facility]us[facility] Discharge Instructions Diet Discharge Diet: No restrictions [...] Up Care Please Follow Up With: Ashkan Tolentino MD When: 2 days Test Results: Test results from this visit will be discussed in further detail at your follow- up appointment, if applicable. Discharge Plan Admission Attending Provider: Ashkan Tolentino Primary Care Provider: [facility] Discharge Orders/Prescriptions Prescriptions: No Action dicyclomine 20 [...] Qty: 180 1RF Referrals / Follow Up: [facility],Jess Hall [Primary Care Provider] - Ashkan Tolentino MD [Med Staff - Active Staff] - Disposition Disposition (needs filled in before D/C Order can be placed): Home, Self Care 06/11/23 0807<Electronically signed by Ashkan Tolentino MD>Ashkan Tolentino MD CC: [facility] ~ Signed [facility] Work Phone: evaluation note* Diagnosis Onset Date Resolution Status Bilateral carpal tunnel syndrome acute Anxiety noneactive Encounter for preventative a dult health care examination noneactive [facility] Work Phone: evaluation note* Diagnosis Onset Date Resolution Status Bilateral carpal tunnel syndrome acute Anxiety noneactive Encounter for preventative a dult health care examination noneactive Anxiety noneactive Dysuria noneactive Segmental and somatic dysfunction of cervical region acute Segmental and somatic dysfunction of lumbar region acute Segmental and somatic dysfunction of pelvic region acute Segmental and somatic dysfunction of thoracic region acute [facility] Work Phone: Evaluation note* Diagnosis Onset Date Resolution Status Anxiety [...] acute Encounter for routine gynecological examination noneactive [facility] Work Phone: Evaluation note* Diagnosis Onset Date Resolution Status Encounter for routine gynecological examination noneactive Essential hypertension acute Generalized anxiety disorder acute Vitamin deficiency acute [facility] Work Phone: Evaluation note* Diagnosis Onset Date Resolution Status Essential hypertension acute Generalized anxiety disorder acute Vitamin deficiency acute [facility] Work Phone: Evaluation note* Diagnosis Onset Date Resolution Status Carpal tunnel syndrome, right acute Carpal tunnel syndrome, right acute [facility] Work Phone: Evaluation note* Diagnosis Onset Date [...] region acute Carpal tunnel syndrome, right acute [facility] Work Phone: Evaluation note* Diagnosis Onset Date [...] acute Mastodynia of right breast a cute [facility] Work Phone: Evaluation note* Diagnosis Onset Date Resolution Status Segmental and somatic dysfunction of cervical region acute Segmental and somatic dysfunction of lumbar region acute Segmental and somatic dysfunction of pelvic region acute Segmental and somatic dysfunction of thoracic region acute Carpal tunnel syndrome, right acute Mastodynia of right breast a cute Mastodynia of right breast a cute Musculoskeletal pain acute [facility] Work Phone: Evaluation note* Diagnosis Onset Date Resolution Status Mastodynia of right breast a cute Mastodynia of right breast a cute Musculoskeletal pain acute Bilateral carpal tunnel syndrome acute Carpal tunnel syndrome, right acute Encounter for routine gynecological examination noneactive Bilateral carpal tunnel syndrome acute [facility] Work Phone: Evaluation note* Diagnosis Onset Date Resolution Status Mastodynia of right breast a cute Musculoskeletal pain acute Bilateral carpal tunnel syndrome acute Carpal tunnel syndrome, right acute Encounter for routine gynecological examination noneactive Bilateral carpal tunnel syndrome acute Bilateral carpal tunnel syndrome acute Bilateral carpal tunnel syndrome acute Numbness and tingling in both hands chronic [facility] Work Phone: Evaluation note* Diagnosis Onset Date Resolution Status Admit Date Cervicalgia chronic October 2:33pm Migraine chronic October 26, 2024 2:33pm [facility] Work Phone: Hospital Discharge instructionsAdditional Instructions Recommend gluten-free diet to see if this helps you with your bradycardia and chest discomfortWThe [facility] Hospital Work Phone: Reason for referral (narrative)No reason for referral information availableWThe [facility] Hospital Work Phone: Chief Complaint and Reason [...] thoracic region Chief Complaint ekg for symptomatic keina per JR/L.[place] DIZZINESS BRADYCARDIA 3 M FU Neck pain Back pain Back pain 6 M FU Back pain 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) E-ORDER N/V/D Reason for Visit Anxiety Dysuria [...] pain 6 M FU Back pain 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) E-ORDER N/V/D SCREENING Reason for Visit Anxiety [...] for routine gynecological examination Chief Complaint 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) E-ORDER N/V/D SCREENING 4 mu fu Reason [...] NIPPLE breast pain/swelling MIGRAINE LEFT WRIST 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) Left Endoscopic Carpal Tunnel Relea Left Endoscopic Carpal Tunnel Relea Reason for Visit Mastodynia of right breast Mastodynia of right breast Musculoskeletal pain Bilateral carpal tunnel syndrome Carpal tunnel syndrome, right Encounter for routine gynecological examination Bilateral carpal tunnel syndrome Chief Complaint breast pain/swelling MIGRAINE LEFT WRIST 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) Left Endoscopic Carpal Tunnel Relea Left Endoscopic [...] pain thigh numbness- LEFT HIP, LUMBAR [facility] 2024 1:54pm Reason for Visit Admit Date [...] pain thigh numbness- LEFT HIP, LUMBAR [facility] 2024 1:54pm LEFT THIGH MERALGIA PARESTHETICA (LFCN) June 08, 2024 8:35am LEFT THIGH MERALGIA PARESTHETICA (LFCN) June 08, 2024 9:50am 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) June 14, 2024 12: 57pm Reason for [...] pain thigh numbness- LEFT HIP, LUMBAR [facility] 2024 1:54pm LEFT THIGH MERALGIA PARESTHETICA (LFCN) June 08, 2024 8:35am LEFT THIGH MERALGIA PARESTHETICA (LFCN) June 08, 2024 9:50am 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) June 14, 2024 12: 57pm LEFT HIP PAIN June 17, 2024 6:00pm Chief Complaint Admit Date L THIGH BURNING RX HERE May 11, 2024 11:00am LEFT LEG May 11, 2024 1:2 9pm pain thigh numbness- LEFT HIP, LUMBAR [facility] 2024 1:54pm LEFT THIGH MERALGIA PARESTHETICA (LFCN) June 08, 2024 8:35am LEFT THIGH MERALGIA PARESTHETICA (LFCN) June 08, 2024 9:50am 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..] Date/ Time Living Will No February 13, 022 2:42pm Power of Implementation Coordinator No February 13, 2022 2:42pm Advance Directive Response Recorded Date/ Time Living Will No June 07, 2022 10:27pm Power of Implementation Coordinator No Gisselle 21st, 20 23 10:27pm Advance Directive Response Recorded Date/ Time Living Will No September 29 9:50pm Power of Implementation Coordinator No September 29 023 9:50pm Advance Directive Response Recorded Date/ Time Living Will No December 06 8:43am Power of Implementation Coordinator No December 06, 2022 8:43am Advance Directive Response Recorded Date/ Time Living Will No December 06 7:43am Power of Implementation Coordinator No December 06, 2022 7:43am Advance Directive Response Recorded Date/ Time Living Will No May 05, 2023 10:18pm Power of Implementation Coordinator No May 04 10:18pm Advance Directive Response Recorded Date/ Time Living Will No June 05, 2023 8:24am Power of Implementation Coordinator No June 04 8:24am Advance Directive Response Recorded Date/ Time Living Will No November 23 10:42am Do you have a Healthcare Power of Implementation Coordinator? No November 24, 2023 10:42am Living Will No March 29 10:00pm Do you have a Healthcare Power of Implementation Coordinator? No March 29, 2024 10:00pm Advance Directive Response Recorded Date/ Time Living Will No March 29, 10:00pm Do you have a Healthcare Power of Implementation Coordinator? No March 29, 2024 10:00pm Advance Directive Response Recorded Date/ Time Do you have a Healthcare Power of Implementation Coordinator? No September 07, 2024 11:23am Advance Directive Response Recorded Date/ Time Living Will No June 05, 2023 8:24am Do you have a Healthcare Power of Implementation Coordinator? No June 05, 2023 8:24am Do you have a Healthcare Power of Implementation Coordinator? No September 07, 2024 11:23am Summary Purpose Additional Source Comments Care Teams (unrecognized sec tion and content) Team Status: Active Member Role Status Dates Dr. Raymond Arteaga III, MD Family Provider Active Dr. Grisel Solares MD Primary Care Provider Active Team Status: Inactive Member Role Status Dates Dr. Grisel Solares MD Primary Care Provider, Refer ring Provider Active Ashkan Tolentino MD Attending Provider Active Team Status: Inactive Member Role Status Dates Dr. Grisel Solares MD Primary Care Provider, Refer ring Provider Active Angus Batista PRECAST WORKER, PRECAST WORKER-C Attending Provider Active Team Status: Inactive Member [...] MD Primary Care Provider Active Angus Batista PRECAST WORKER, PRECAST WORKER-C Attending Provider, Referring Prov ider Active Team [...] MD Primary Care Provider Active Angus Batista PRECAST WORKER, PRECAST WORKER-C Attending Provider, Referring Prov ider Active Team [...] Raymond Arteaga III, MD Family Provider Active [facility] Primary Care Provider A ctive Team Status: Inactive Member Role Status Dates Dr. Grisel Solares MD Primary Care Provider Active Dr. Vince Amos DO Attending Provider, Emergency P rovider Active Team Status: Active Member Role Status Dates [facility] Primary Care Provider A ctive Angus Batista VSC, PRECAST WORKER-C Attending Provider, Referring Pro vider Active Team Status: Active Member Role Status Dates Angus Batista VSC, PRECAST WORKER-C Primary Care Provider Active Health Risk Assessment Attending Provider, Referring P rovider Active Team Status: Inactive Member Role Status Dates Angus Batista VSC, PRECAST WORKER-C Primary Care Provider Active Dr. Ana Maria Walker DO Attending Provider, Refe rring Provider Active Team Status: Inactive Member Role Status Dates Angus Batista VSC, PRECAST WORKER-C Attending Provider, Referring Pro vider Active [facility] Primary Care Provider A ctive Team Status: Active Member Role Status [facility] Primary C are Provider, Attending Provider, Referring Provider Active Angus Batista VSC, PRECAST WORKER-C Other Provider Active Team Status: Inactive Member Role Status Dates [facility] Primary Care Provider A ctive Angus Batista VSC, PRECAST WORKER-C Attending Provider, Referring Pro vider Active Team Status: Active Member Role Status [facility] Primary Care Provider A ctive Angus Batista VSC, PRECAST WORKER-C Attending Provider Active Angus Batista PRECAST WORKER, PRECAST WORKER-C Referring Provider Active Team Status: Inactive Member Role Status Dr. Grisel Solares MD Referring Provider Active Dr. Harry Fernandes MD Attending Provider Active [facility] Primary Care Provider A ctive Team Status: Inactive Member Role Status Dates [facility] Primary C are Provider, Attending Provider, Referring Provider Active Angus Batista VSC, PRECAST WORKER-C Other Provider Active Team Status: Inactive Member Role Status [facility] Primary Care Provider A ctive Angus Batista VSC, PRECAST WORKER-C Attending Provider Active Angus Batista PRECAST WORKER, PRECAST WORKER-C Referring Provider Active Team Status: Inactive Member Role Status Dates [facility] Primary Care Provider, Referring Provider Active Ashkan Tolentino MD Attending Provider Active Team Status: Active Member Role Status Dates [facility] Primary Care Provider A ctive Ashkan Tolentino MD Attending Provider, Other Provider Active Team Status: Inactive Member Role Status Dates [facility] Primary Care Provider A ctive Ashkan Tolentino MD Attending Provider Active Team Status: Inactive Member Role Status [facility] Primary Care Provider, Referring Provider Active Dr. Katharine Madden , JAVI Attending Provider Active Team Status: Inactive Member Role Status [facility] Primary Care Provider, Referring Provider Active Francesca Arthur CNM Attending Provider Active Team Status: Active Member Role Status Dates [facility] Primary Care Provider A ctive Francesca Arthur CNM Attending Provider, Referring Pr ovider Active Team Status: Inactive Member Role Status [facility] Primary Care Provider A ctive Francesca Arthur CNM Attending Provider, Referring Pr ovider Active Team Status: Inactive Member Role Status [facility] Primary Care Provider, Referring Provider Active Lindy Castaneda NP, [employer] WORKER-C Attending Provider Active Team Status: Inactive Member Role Status [facility] Primary Care Provider A ctive Dr. Jani Coronado DO Emergency Provider Active Team Status: Inactive Member Role Status Dates Dr. Grisel Solares MD Referring Provider Active Dr. Ana Maria Walker DO Attending Provider Activ e [facility] Primary Care Provider A ctive Team Status: Active Member Role Status [facility] Primary Care Provider A ctjanny Tolentino MD Attending Provider, Referring Provider, Other Provider Active Team Status: Inactive Member Role Status [facility] Primary Care Provider A ctive Dr. Jani Coronado DO Attending Provider, Emergency Provider Active Team Status: Inactive Member Role Status [facility] Primary Care Provider A ctive Ashkan Tolentino MD Attending Provider, Referring Prov ider Active Team Status: Active Member Role Status Dates Angus GALARZA, [employer] WORKER-C Primary Care Provider Active Team Status: Inactive Member Role Status Dates Angus GALARZA, [employer] WORKER-C Primary Care Provider Active Start: February 10, 2024 End: February 10, 2024 Angus GALARZA, [employer] WORKER-C Referring Provider Active S tart: February 10, 2024 End: February 10, 2024 Ashkan Tolentino MD Attending Provider Active St art: February 10, 2024 End: February 10, 2024 Team Status: Inactive Member Role Status Dates Angus Dunnder VSC, [employer] WORKER-C Primary Care Provider Active Start: March 29, 2024 End: March 29, 2024 Dr. Richi Saucedo , Attending Provider Active S tart: March 29, 2024 End: March 29, 2024 Dr. Richi Saucedo , Emergency Provider Active S tart: March 29, 2024 End: March 29, 2024 Team Status: Inactive Member Role Status Dates Angus Dunnder VSC, [employer] WORKER-C Primary Care Provider Active Start: April 09, 2024 End: April 09, 2024 Angus Batista VSC, [employer] WORKER-C Referring Provider Active S tart: April 09, 2024 End: April 09, 2024 Alem Gross CNM Attending Provider Active S tart: April 09, 2024 End: April 09, 2024 Team Status: Inactive Member Role Status Dates Angus Dunnder VSC, [employer] WORKER-C Primary Care Provider Active Start: April 30, 2024 End: April 30, 2024 Alem Gross CNM Attending Provider Active S tart: April 30, 2024 End: April 30, 2024 Alem Gross CNM Referring Provider Active S tart: April 30, 2024 End: April 30, 2024 Team Status: Active Member Role Status Dates Angus Dunnder VSC, [employer] WORKER-C Primary Care Provider Active Start: May 11, 2024 Zebulun Beam VSC, [employer] WORKER-C Attending Provider Active Start: May 11, 2024 Zebulun Beam VSC, [employer] WORKER-C Referring Provider Active Start: May 11, 2024 Team Status: Inactive Member Role Status Dates Angus Dunnder VSC, [employer] WORKER-C Primary Care Provider Active Start: May 11, 2024 End: May 11, 2024 Angus Lester VSC, [employer] WORKER-C Referring Provider Active S tart: May 11, 2024 End: May 11, 2024 Ashkan Tolentino MD Attending Provider Active St art: May 11, 2024 End: May 11, 2024 Team Status: Active Member Role Status Dates Ashkan Tolentino MD Attending Provider Active St art: May 11, 2024 Ashkan Tolentino MD Referring Provider Active St art: May 11, 2024 Angus Batista VSC, [employer] WORKER-C Primary Care Provider Active Start: May 11, 2024 Team Status: Inactive Member Role Status Dates Angus Dunnder VSC, [employer] WORKER-C Primary Care Provider Active Start: May 11, 2024 End: May 11, 2024 Chaibujarad Beam VSC, [employer] WORKER-C Attending Provider Active Start: May 11, 2024 End: May 11, 2024 Chaibulurupinder Beam VSC, [employer] WORKER-C Referring Provider Active Start: May 11, 2024 End: May 11, 2024 Team Status: Inactive Member Role Status Dates Ashkan Tolentino MD Attending Provider Active St art: May 11, 2024 End: May 11, 2024 Ashkan Tolentino MD Referring Provider Active St art: May 11, 2024 End: May 11, 2024 Angus Batista VSC, [employer] WORKER-C Primary Care Provider Active Start: May 11, 2024 End: May 11, 2024 Team Status: Inactive Member Role Status Dates Angus GALARZA, [employer] WORKER-C Primary Care Provider Active Start: June 08, 2024 End: June 08, 2024 Ahskan Tolentino MD Attending Provider Active St art: June 08, 2024 End: June 08, 2024 Ashkan Tolentino MD Referring Provider Active St art: June 08, 2024 End: June 08, 2024 Team Status: Active Member Role Status Dates Angus Lester GALARZA, [employer] WORKER-C Primary Care Provider Active Start: June 08, 2024 Ashkan Tolentino MD Referring Provider Active St art: June 08, 2024 Ashkan Tolentino MD Other Provider Active Start: June 08, 2024 Dr. Ramona Martin MD Attending Provider Active Start: June 08, 2024 Team Status: Inactive Member Role Status Dates Angus Lester VSC, [employer] WORKER-C Primary Care Provider Active Start: June 14, 2024 End: June 14, 2024 Angus Lester VSDuke, [employer] WORKER-C Referring Provider Active S tart: June 14, 2024 End: June 14, 2024 Dr. Ana Maria Walker DO Attending Provider Activ e Start: June 14, 2024 End: June 14, 2024 Team Status: Inactive Member Role Status Dates Angus Batista VSC, [employer] WORKER-C Primary Care Provider Active Start: June 17, 2024 End: June 17, 2024 Dr. Carlos Martins MD Attending Provider Active Start: June 17, 2024 End: June 17, 2024 Dr. Carlos Martins MD Referring Provider Active Start: June 17, 2024 End: June 17, 2024 Team Status: Inactive Member Role Status Dates Angus Lester VSC, [employer] WORKER-C Primary Care Provider Active Start: July 02, 2024 End: July 02, 2024 Chaibulurupinder Beam VSC, [employer] WORKER-C Attending Provider Active Start: July 02, 2024 End: July 02, 2024 Zebulun Beam VSC, [employer] WORKER-C Referring Provider Active Start: July 02, 2024 End: July 02, 2024 Team Status: Active Member Role/Relationship Status Dates Angus Lester VSC, [employer] WORKER-C Primary Care Provider Active Team Status: Inactive Member Role/Relationship Status Dates Angus Lester VSC, [employer] WORKER-C Primary Care Provider Active Start: May 11, 2024 End: May 11, 2024 Chaibulurupinder Beam VSC, [employer] WORKER-C Attending Provider Active Start: May 11, 2024 End: May 11, 2024 Chaibulun Beam VSC, [employer] WORKER-C Referring Provider Active Start: May 11, 2024 End: May 11, 2024 Team Status: Inactive Member Role/Relationship Status Dates Angus Lester VSC, [employer] WORKER-C Primary Care Provider Active Start: May 11, 2024 End: May 11, 2024 Angus Lester VSC, [employer] WORKER-C Referring Provider Active S tart: May 11, 2024 End: May 11, 2024 Ashkan Tolentino MD Attending Provider Active St art: May 11, 2024 End: May 11, 2024 Team Status: Inactive Member Role/Relationship Status Dates Ashkan Tolentino MD Attending Provider Active St art: May 11, 2024 End: May 11, 2024 Ashkan Tolentino MD Referring Provider Active St art: May 11, 2024 End: May 11, 2024 Angus Lester VSC, [employer] WORKER-C Primary Care Provider Active Start: May 11, 2024 End: May 11, 2024 Team Status: Inactive Member Role/Relationship Status Dates Angus Lester VSC, [employer] WORKER-C Primary Care Provider Active Start: June 08, 2024 End: June 08, 2024 Ashkan Tolentino MD Attending Provider Active St art: June 08, 2024 End: June 08, 2024 Ashkan Tolentino MD Referring Provider Active St art: June 08, 2024 End: June 08, 2024 Team Status: Active Member Role/Relationship Status Dates Angus Lester VSC, [employer] WORKER-C Primary Care Provider Active Start: June 08, 2024 Ashkan Tolentino MD Referring Provider Active St art: June 08, 2024 Ashkan Tolentino MD Other Provider Active Start: June 08, 2024 Dr. Ramona Martin MD Attending Provider Active Start: June 08, 2024 Team Status: Inactive Member Role/Relationship Status Dates Angus Batista VSC, [employer] WORKER-C Primary Care Provider Active Start: June 14, 2024 End: June 14, 2024 Angus Dunnder VSC, [employer] WORKER-C Referring Provider Active S tart: June 14, 2024 End: June 14, 2024 Dr. Ana Maria Walker DO Attending Provider Activ e Start: June 14, 2024 End: June 14, 2024 Team Status: Inactive Member Role/Relationship Status Dates Angus Dunnder VSC, [employer] WORKER-C Primary Care Provider Active Start: June 17, 2024 End: June 17, 2024 Dr. Carlos Martins MD Attending Provider Active Start: June 17, 2024 End: June 17, 2024 Dr. Carlos Martins MD Referring Provider Active Start: June 17, 2024 End: June 17, 2024 Team Status: Inactive Member Role/Relationship Status Dates Angus Batista VSC, [employer] WORKER-C Primary Care Provider Active Start: July 02, 2024 End: July 02, 2024 Chaibulurupinder Beam VSC, [employer] WORKER-C Attending Provider Active Start: July 02, 2024 End: July 02, 2024 Zebulurupinder Beam VSC, [employer] WORKER-C Referring Provider Active Start: July 02, 2024 End: July 02, 2024 Team Status: Inactive Member Role/Relationship Status Dates Angus Batista VSC, [employer] WORKER-C Primary Care Provider Active Start: September 07, 2024 End: September 07, 2024 Dr. Sergo Olsen MD Emergency Provider Active Sta rt: September 07, 2024 End: September 07, 2024 Team Status: Inactive Member Role/Relationship Status Dates Angus Dunnder VSC, [employer] WORKER-C Primary Care Provider Active Start: June 08, 2024 End: June 08, 2024 Ashkan Tolentino MD Attending Provider Active St art: June 08, 2024 End: June 08, 2024 Ashkan Tolentino MD Referring Provider Active St art: June 08, 2024 End: June 08, 2024 Team Status: Active Member Role/Relationship Status Dates Angus Batista VSC, [employer] WORKER-C Primary Care Provider Active Start: June 08, 2024 Ashkan Tolentino MD Referring Provider Active St art: June 08, 2024 Ashkan Tolentino MD Other Provider Active Start: June 08, 2024 Dr. Ramona Martin MD Attending Provider Active Start: June 08, 2024 Team Status: Inactive Member Role/Relationship Status Dates Angus Dunnder VSC, [employer] WORKER-C Primary Care Provider Active Start: June 14, 2024 End: June 14, 2024 Angus Dunnder VSC, [employer] WORKER-C Referring Provider Active S tart: June 14, 2024 End: June 14, 2024 Dr. Ana Maria Walker DO Attending Provider Activ e Start: June 14, 2024 End: June 14, 2024 Team Status: Inactive Member Role/Relationship Status Dates Angus Batista VSC, [employer] WORKER-C Primary Care Provider Active Start: June 17, 2024 End: June 17, 2024 Dr. Carlos Martins MD Attending Provider Active Start: June 17, 2024 End: June 17, 2024 Dr. Carlos Martins MD Referring Provider Active Start: June 17, 2024 End: June 17, 2024 Team Status: Inactive Member Role/Relationship Status Dates Angus Dunnder VSC, [employer] WORKER-C Primary Care Provider Active Start: July 02, 2024 End: July 02, 2024 Zebulun Beam VSC, [employer] WORKER-C Attending Provider Active Start: July 02, 2024 End: July 02, 2024 Zebulun Beam VSC, [employer] WORKER-C Referring Provider Active Start: July 02, 2024 End: July 02, 2024 Team Status: Inactive Member Role/Relationship Status Dates Angus Batista VSC, [employer] WORKER-C Primary Care Provider Active Start: September 07, 2024 End: September 07, 2024 Dr. Sergo Olsen MD Attending Provider Active Sta rt: September 07, 2024 End: September 07, 2024 Dr. Sergo Olsen MD Emergency Provider Active Sta rt: September 07, 2024 End: September 07, 2024 Team Status: Inactive Member Role/Relationship Status Dates Angus Lester VSC, [employer] WORKER-C Primary Care Provider Active Start: September 17, 2024 End: September 17, 2024 Zebulurupinder Beam VSC, [employer]CAST WORKER-C Attending Provider Active Start: September 17, 2024 End: September 17, 2024 Team Status: Inactive Member Role/Relationship Status Dates Angus Dunnder VSC, [employer] WORKER-C Primary Care Provider Active Start: July 02, 2024 End: July 02, 2024 Zebulun Beam VSC, [employer] WORKER-C Attending Provider Active Start: July 02, 2024 End: July 02, 2024 Zebulun Beam VSC, [employer] WORKER-C Referring Provider Active Start: July 02, 2024 End: July 02, 2024 Team Status: Inactive Member Role/Relationship Status Dates Angus Dunnder VSC, [employer] WORKER-C Primary Care Provider Active Start: September 07, 2024 End: September 07, 2024 Dr. Sergo Olsen MD Attending Provider Active Sta rt: September 07, 2024 End: September 07, 2024 Dr. Sergo Olsen MD Emergency Provider Active Sta rt: September 07, 2024 End: September 07, 2024 Team Status: Inactive Member Role/Relationship Status Dates Angus Batista VSC, [employer] WORKER-C Primary Care Provider Active Start: September 17, 2024 End: September 17, 2024 Zebulurupinder Beam VSC, [employer] WORKER-C Attending Provider Active Start: September 17, 2024 End: September 17, 2024 Team Status: Active Member Role/Relationship Status Dates Angus Batista VSC, [employer] WORKER-C Primary Care Provider Active Start: October 21, 2024 Health Risk Assessment Attending Provider Active Start: October 21, 2024 Team Status: Inactive Member Role/Relationship Status Dates [facility] Referring Provider Active Start: October End: October 26, 2024 Dr. Harry Fernandes MD Attending Provider Active Start: October 26, 2024 End: October 26, 2024 Angus Dunnder VSC, [employer] WORKER-C Primary Care Provider Active Start: October 26, 2024 End: October 26, 2024 Team Status: Active Member Role/Relationship Status Dates Angus Dunnder VSC, [employer] WORKER-C Primary care physician Active Team Status: Inactive Member Role/Relationship Status Dates Angus Batista VSC, [employer] WORKER-C Primary care physician Active Start: September 07, 2024 End: September 07, 2024 Dr. Sergo Olsen MD Attending physician Active St art: September 07, 2024 End: September 07, 2024 Dr. Sergo Olsen MD Emergency Department Physician Acti ve Start: September 07, 2024 End: September 07, 2024 Team Status: Inactive Member Role/Relationship Status Dates Angus Batista VSC, [employer] WORKER-C Primary care physician Active Start: September 17, 2024 End: September 17, 2024 Ledy SARAVIAC, [employer] WORKER-C Attending physician Active Start: September 17, 2024 End: September 17, 2024 Team Status: Active Member Role/Relationship Status Dates Angus Batista VSC, [employer] WORKER-C Primary care physician Active Start: October 21, 2024 Health Risk Assessment Attending physician Active Start: October 21, 2024 Team Status: Inactive Member Role/Relationship Status Dates [facility] Referring Provider Active Start: October End: October 26, 2024 Dr. Harry Fernandes MD Attending physician Active Start: October 26, 2024 End: October 26, 2024 Angus Batista VSC, [employer] WORKER-C Primary care physician Active Start: October 26, 2024 End: October 26, 2024 Team Status: Inactive Member Role/Relationship Status Dates Angus SARAVIAC, [employer] WORKER-C Primary care physician Active Start: November 29, 2024 End: November 29, 2024 Angus SARAVIAC, [employer] WORKER-C Referring Provider Active S tart: November 29, 2024 End: November 29, 2024 Lindy Castaneda PRECAST WORKER, [employer] WORKER-C Attending physician Active Start: November 29, 2024 End: November 29, 2024 Team Status: Inactive Member Role/Relationship Status Dates Angus Batista VSC, [employer] WORKER-C Primary care physician Active Start: November 29, 2024 End: November 29, 2024 Lindy Castaneda PRECAST WORKER, [employer] WORKER-C Attending physician Active Start: November 29, 2024 End: November 29, 2024 Team Status: Inactive Member Role/Relationship Status Dates Angus Batista VSC, [employer] WORKER-C Primary care physician Active Start: December 03, 2024 End: December 03, 2024 Lindy Castaneda NP, [employer] WORKER-C Attending physician Active Start: December 03, 2024 End: December 03, 2024 Lindy Castaneda NP, CARLOC Referring Provider Active Start: December 03, 2024 End: December 03, 2024 Source Comments (unrecognize d section and content) In the event this informatio n is protected by the Federal Confidentiality of Alcohol and Drug Abuse Patient Records regulations: The Federal rules restrict any use of the information to criminally investigate or prosecute any alcohol or drug abuse patient.[facility] the event this information is protected by the Federal Confidentiality of Alcohol and Drug Abuse Patient Records regulations: The Federal rules restrict any use of the information to criminally investigate or prosecute any alcohol or drug abuse patient.[facility] Reason for Visit (unrecogniz ed section and content) Reason Comments Appointment INFORMATION SOURCE (unrecogn ized section and content) DATE CREATED AUTHOR 11/08/2023 [facility] DATE CREATED AUTHOR 'S KENDRA DINERO 12/28/2024 [facility] FOR RECORDS PERTAINING TO PATIENTS WHO [...] BE BASED ON THE PRIMARY CLINICAL RECORDS. [facility]. provides no warranty or guarantee of the accuracy or completeness of information in this document.
== END | disposition home or self-care (01) ==
LOC: US 15:58
PROVIDERS: PCP Nurse Practitioner Family; Referring Provider Nurse Practitioner Women's Health; Visit Provider Nurse Practitioner Women's Health
DX: R10.20 Pelvic and perineal pain unspecified side (principal); N85.2 Hypertrophy of uterus; R92.0 Mammographic microcalcification found on diagnostic imaging of breast; R94.6 Abnormal results of thyroid function studies
CPT/HCPCS: 76830; 76856